=== PATIENT | male | born 1955 | race Caucasian/White ===

== ENCOUNTER 2020-02-16 16:17 | Inpatient (IN) | payer BC, SELFPAY ==
[2020-02-16] VITALS (40 sets, daily range): BP systolic 84–107; BP diastolic 43–65; PULSE 70–97; RESP 13–24; TEMP 36.7–37.1; O2SAT 95–100; BMI 32.1
--- NOTE | 2020-02-16 17:04 | ECG_ITS ---
[facility] Test Date: 2020-02-16 Pat Name: Luis Muñoz Department: Room: Gender: Male Respiratory Care Practitioner: : 1955 Requested By: Raghavendra Nesbitt Order Number: [id number] Jae MD: Stephanie Abel M.D. Measurements Intervals [place] Rate: 85 P: 18 MO: 147 QRS: 43 QRSD: 87 T: 64 QT: 355 QTc: 424 Interpretive Statements SINUS RHYTHM Compared to ECG 10/30/2014 22:41:36 No significant changes Electronically Signed On 02-16-2020 21:43:44 CDT by Stephanie Abel M.D. [email or web address] [id number] f
--- NOTE | 2020-02-16 17:30 | W.ED.GIBLEED ---
Documented by User: Raghavendra Chanel DO 02/19/20 18:01 HPI - GI Bleed General: Chief complaint: GI Bleed Stated complaint: DIZZY Time Seen by Provider: 02/16/20 17:03 History of Present Illness: HPI Narrative: 85-year-old male presents emergency room with rectal bleeding has had for the last 1 to 2 weeks has had black stools he does take iron regularly a week ago was is hemoglobin was 10 7 had been monitoring as an outpatient he has had this for some time he had positive Hemoccult in April of last year he had a colonoscopy and EGD it showed stomach as a source of blood loss was significant ulcers. He reports having very loose stools that are melanic in color. He has had several near syncopal episodes home as well which is what eventually precipitated his primary care doctor to refer him to the emergency room. He is still taking a PPI and they recently doubled up on it because of his symptoms. complaint: melena Onset (ago): week(s) (2) Pain Consistency: intermittent Severity: moderate Relieving factors: none Exacerbating factors: none Context: history of GI bleed Associated symptoms: Reports malaise, nausea and syncope; Denies abdominal pain, easy bruising, fever(s), headache(s), other bleeding, poor appetite, rash or vomiting Treatments Prior to Arrival: none Review of Systems Const: Reports: malaise; Denies: fever(s) ENMT: Denies: throat pain, ear or mastoid pain, nasal discharge or nasal congestion Card: Reports: syncope Resp: Denies: dyspnea, productive cough or non-productive cough GI: Reports: nausea; Denies: abdominal pain or vomiting : Denies: flank pain, dysuria, urinary frequency or urinary urgency Skin/Breast: Denies: rash or pruritus Neuro: Denies: headache(s) Ravi/Lymph: Denies: easy bruising PFS ED PFSH: Medical History (Updated 02/17/20 @ 08:28 by Fatuma Forrest MD) CKD (chronic kidney disease) stage 2, GFR 60-89 ml/min GERD (gastroesophageal reflux disease) History of cirrhosis of liver History of diabetes mellitus Hypertension Hypothyroidism Obstructive sleep apnea Surgical History (Updated 02/16/20 @ 23:09 by Riley Recio MD) History of appendectomy History of arthroscopic knee surgery History of surgery on upper extremity History of vasectomy Family History (Updated 02/16/20 @ 23:09 by Riley Recio MD) Other Diabetes Social History (Updated 02/16/20 @ 23:10 by Riley Reico MD) Smoking and tobacco status: former smoker Quit status (tobacco): has quit using tobacco Alcohol intake: former Substance/Drug Use: never Course Vital Signs: Vital signs: Vital Signs Temperature 98.2 F 02/19/20 16:00 Pulse Rate 96 02/19/20 16:00 Respiratory Rate 18 02/19/20 16:00 Blood Pressure 97/58 02/19/20 16:00 Pulse Oximetry 95 02/19/20 16:00 MDM - GI Bleed MDM Narrative: Medical decision making narrative: Care turned over to Dr. Funes at change of shift see his notes for final diagnosis and disposition Lab Data: Labs: Lab Results 02/16/20 02/16/20 02/16/20 Range/Units 17:23 17:23 17:23 WBC 6.2 (4.0-10.0) 10^3/ uL RBC 2.98 L (4.1-5.3) 10^6/u L Hgb 8.9 L (11.7-16.6) g/dL Hct 27.4 L (42.0-52.0) % MCV 91.9 (80-94) fL MCH 29.9 (28.0-34.0) pg MCHC 32.5 (30.0-36.0) g/dL RDW 14.6 (12.1-15.1) % Plt Count 184 (130-400) 10^3/c mm MPV 9.5 (7.4-10.4) fL Neut % (Auto) 56.9 % Lymph % (Auto) 22.1 % [place] % (Auto) 16.3 % Eos % (Auto) 3.4 % Baso % (Auto) 1.1 % Neut # (Auto) 3.54 (1.8-7.7) 10^3/u L Lymph # (Auto) 1.4 (0.8-4.8) 10^3/u L [place] # (Auto) 1.0 H (0.2-0.9) 10^3/u L Eos # (Auto) 0.2 (0.0-0.8) 10^3/u L Baso # (Auto) 0.1 (0.0-0.1) 10^3/u L Nucleated RBC % (a uto) 0 % Nucleated RBCs # 0.0 /100WBC PT 15.30 H (12.1-14.9) SECO NDS INR 1.17 (0.8-1.2) APTT 30.5 (23.9-36.7) SECO NDS Sodium 119 L* (136-145) mmol/L Potassium 5.6 H (3.5-5.1) mmol/L Chloride 93 L (98-107) mmol/L Carbon Dioxide 16 L (22-29) mmol/L Anion Gap 15.6 (5-19) BUN 22 (8-23) mg/dL Creatinine 0.9 (0.7-1.2) mg/dL GFR Calculation 85.0 L (90-130) mL/min Glucose 110 (65-115) mg/dL Calculated Osmolal ity 245 L (285-295) mOsm/k g Calcium 8.9 (8.5-10.5) mg/dL Total Bilirubin 1.0 (0.15-1.2) mg/dL AST 32 (0-40) U/L ALT 36 (0-41) U/L Alkaline Phosphata se 67 (40-130) IU/L Ammonia (16-60) umol/L Troponin T Baselin e (0-15) ng/L Troponin T [address] [place] (0-15) ng/L Delta Troponin T (0-10) ABS# Total Protein 6.9 (6.6-8.7) g/dL Albumin 3.7 (3.5-5.2) g/dL Globulin 3.2 (1.3-4.6) g/dL Urine Color (Yellow) Urine Appearance (CLEAR) Urine pH (5-7) Ur Specific Gravit y (1.005-1.030) Urine Protein (Negative) Urine Glucose (UA) (Normal) Urine Ketones (Negative) Urine Blood (Negative) Urine Nitrate (Negative) Urine Bilirubin (NEGATIVE) Urine Urobilinogen (Negative) mg/dL Ur Leukocyte Denia ase (Negative) Urine RBC (0-2) /hpf Urine WBC (0-5) /hpf Ur Squamous Epith Cells (0-5) Ur Transition Epit h Cell /hpf Ur Renal Epithelia l Cell /hpf Amorphous Sediment Urine Bacteria (NONE) Blood Type Rho(D) Type Antibody Screen Crossmatch 02/16/20 02/16/20 02/16/20 Range/Units 17:23 17:23 18:40 WBC (4.0-10.0) 10^3/ uL RBC (4.1-5.3) 10^6/u L Hgb (11.7-16.6) g/dL Hct (42.0-52.0) % MCV (80-94) fL MCH (28.0-34.0) pg MCHC (30.0-36.0) g/dL RDW (12.1-15.1) % Plt Count (130-400) 10^3/c mm MPV (7.4-10.4) fL Neut % (Auto) % Lymph % (Auto) % [place] % (Auto) % Eos % (Auto) % Baso % (Auto) % Neut # (Auto) (1.8-7.7) 10^3/u L Lymph # (Auto) (0.8-4.8) 10^3/u L [place] # (Auto) (0.2-0.9) 10^3/u L Eos # (Auto) (0.0-0.8) 10^3/u L Baso # (Auto) (0.0-0.1) 10^3/u L Nucleated RBC % (a uto) % Nucleated RBCs # /100WBC PT (12.1-14.9) SECO NDS INR (0.8-1.2) APTT (23.9-36.7) SECO NDS Sodium (136-145) mmol/L Potassium (3.5-5.1) mmol/L Chloride (98-107) mmol/L Carbon Dioxide (22-29) mmol/L Anion Gap (5-19) BUN (8-23) mg/dL Creatinine (0.7-1.2) mg/dL GFR Calculation (90-130) mL/min Glucose (65-115) mg/dL Calculated Osmolal ity (285-295) mOsm/k g Calcium (8.5-10.5) mg/dL Total Bilirubin (0.15-1.2) mg/dL AST (0-40) U/L ALT (0-41) U/L Alkaline Phosphata se (40-130) IU/L Ammonia 70 H (16-60) umol/L Troponin T Baselin e 15 (0-15) ng/L Troponin T [address] [place] (0-15) ng/L Delta Troponin T (0-10) ABS# Total Protein (6.6-8.7) g/dL Albumin (3.5-5.2) g/dL Globulin (1.3-4.6) g/dL Urine Color (Yellow) Urine Appearance (CLEAR) Urine pH (5-7) Ur Specific Gravit y (1.005-1.030) Urine Protein (Negative) Urine Glucose (UA) (Normal) Urine Ketones (Negative) Urine Blood (Negative) Urine Nitrate (Negative) Urine Bilirubin (NEGATIVE) Urine Urobilinogen (Negative) mg/dL Ur Leukocyte Denia ase (Negative) Urine RBC (0-2) /hpf Urine WBC (0-5) /hpf Ur Squamous Epith Cells (0-5) Ur Transition Epit h Cell /hpf Ur Renal Epithelia l Cell /hpf Amorphous Sediment Urine Bacteria (NONE) Blood Type A Positive Rho(D) Type Positive Antibody Screen Negative Crossmatch See Detail 02/16/20 02/16/20 Range/Units 19:21 19:32 WBC (4.0-10.0) 10^3/ uL RBC (4.1-5.3) 10^6/u L Hgb (11.7-16.6) g/dL Hct (42.0-52.0) % MCV (80-94) fL MCH (28.0-34.0) pg MCHC (30.0-36.0) g/dL RDW (12.1-15.1) % Plt Count (130-400) 10^3/c mm MPV (7.4-10.4) fL Neut % (Auto) % Lymph % (Auto) % [place] % (Auto) % Eos % (Auto) % Baso % (Auto) % Neut # (Auto) (1.8-7.7) 10^3/u L Lymph # (Auto) (0.8-4.8) 10^3/u L [place] # (Auto) (0.2-0.9) 10^3/u L Eos # (Auto) (0.0-0.8) 10^3/u L Baso # (Auto) (0.0-0.1) 10^3/u L Nucleated RBC % (a uto) % Nucleated RBCs # /100WBC PT (12.1-14.9) SECO NDS INR (0.8-1.2) APTT (23.9-36.7) SECO NDS Sodium (136-145) mmol/L Potassium (3.5-5.1) mmol/L Chloride (98-107) mmol/L Carbon Dioxide (22-29) mmol/L Anion Gap (5-19) BUN (8-23) mg/dL Creatinine (0.7-1.2) mg/dL GFR Calculation (90-130) mL/min Glucose (65-115) mg/dL Calculated Osmolal ity (285-295) mOsm/k g Calcium (8.5-10.5) mg/dL Total Bilirubin (0.15-1.2) mg/dL AST (0-40) U/L ALT (0-41) U/L Alkaline Phosphata se (40-130) IU/L Ammonia (16-60) umol/L Troponin T Baselin e (0-15) ng/L Troponin T [address] [place] 14.61 (0-15) ng/L Delta Troponin T -0.39 L (0-10) ABS# Total Protein (6.6-8.7) g/dL Albumin (3.5-5.2) g/dL Globulin (1.3-4.6) g/dL Urine Color Yellow (Yellow) Urine Appearance Clear (CLEAR) Urine pH 5 (5-7) Ur Specific Gravit y 1.015 (1.005-1.030) Urine Protein Neg (Negative) Urine Glucose (UA) 4+ H (Normal) Urine Ketones Negative (Negative) Urine Blood Neg (Negative) Urine Nitrate Negative (Negative) Urine Bilirubin Neg (NEGATIVE) Urine Urobilinogen Norm (Negative) mg/dL Ur Leukocyte Denia ase Negative (Negative) Urine RBC None (0-2) /hpf Urine WBC None (0-5) /hpf Ur Squamous Epith Cells 0-4 H (0-5) Ur Transition Epit h Cell None /hpf Ur Renal Epithelia l Cell None /hpf Amorphous Sediment Not Reportable Urine Bacteria None (NONE) Blood Type Rho(D) Type Antibody Screen Crossmatch Discharge Plan Discharge Patient Disposition: Admitted As Inpatient Admit Provider: Riley Recio Clinical Impression: Acute hyponatremia, Acute GI bleeding Condition: Stable Referrals: Floresita Bustillo DO [Primary Care Provider] - Discharge Date/Time: 02/16/20 19:49 Sign Out Sign Out Data: Patient Sign Out occurred on 02/16/20 at 18:20. Patient's care was discussed, and care was transferred from to Mami Nation. Coding Level of Care Code ED Computed Tomography Technician for Chg Fwd Exam Comprehensive Documented by User: Mami Nation 02/16/20 20:43 HPI - GI Bleed General: Chief complaint: GI Bleed Stated complaint: DIZZY Time Seen by Provider: 02/16/20 17:03 [facility] ED PFSH: Medical History (Updated 02/17/20 @ 08:28 by Fatuma Forrest MD) CKD (chronic kidney disease) stage 2, GFR 60-89 ml/min GERD (gastroesophageal reflux disease) History of cirrhosis of liver History of diabetes mellitus Hypertension Hypothyroidism Obstructive sleep apnea Surgical History (Updated 02/16/20 @ 23:09 by Riley Recio MD) History of appendectomy History of arthroscopic knee surgery History of surgery on upper extremity History of vasectomy Family History (Updated 02/16/20 @ 23:09 by Riley Recio MD) Other Diabetes Social History (Updated 02/16/20 @ 23:10 by Riley Recio MD) Smoking and tobacco status: former smoker Quit status (tobacco): has quit using tobacco Alcohol intake: former Substance/Drug Use: never Physical Exam Const: COMMON NORMALS: no acute distress, patient oriented x3, no limitations, healthy appearing and well nourished GENERAL APPEARANCE: cooperative, well kempt and well developed HENMT: COMMON NORMALS: normocephalic, atraumatic, external ears normal, EAC's normal and Normal external nose present HEAD & SCALP: normal to inspection, normocephalic and atraumatic FACE & SINUS: normal facial exam and face symmetric NOSE: Normal external nose present and Normal nares present EXTERNAL EAR: Yes external ears normal EXTERNAL AUDITORY CANAL: EAC's normal MOUTH: Normal oral and palatal mucosa present, lip normal and tongue normal Eye: COMMON NORMALS: Equal, round and reactive pupils present and conjunctivae normal GENERAL EYE: appearance normal, both eyes and all related structures ALIGNMENT: Yes alignment normal PERIORBITAL: periorbital findings normal EYELID: eyelids normal CONJUNCTIVA: Yes conjunctivae normal SCLERA: sclerae normal PUPIL: Yes Equal, round and reactive pupils present Neck/C-Spine: COMMON NORMALS: full ROM, no lymphadenopathy, supple, no meningeal signs and no JVD GENERAL: Yes normal visual inspection and Yes trachea midline Chest: COMMONS NORMALS: normal inspection of the chest and normal palpation of entire chest wall Resp: COMMON NORMALS: normal respiratory effort, No retractions and No use of accessory muscles EFFORT & INSPECTION: Yes able to speak in complete sentences and Yes symmetric chest movement AUSCULTATION: no crackles, no rales, no rhonchi and no wheezes Cardio: COMMON NORMALS: no JVD, regular rate, regular rhythm, S1 normal heart sound present and S2 normal heart sound present RATE: regular rate RHYTHM: regular rhythm HEART SOUNDS: S1 normal heart sound present, S2 normal heart sound present, no click, no gallops, no murmurs, no rubs and abnormal split S2 GI: COMMON NORMALS: Soft to palpation and No hepatosplenomegaly present PALPATION: Yes Soft to palpation, No Tenderness to palpation present (GI), No Guarding due to palpation present (GI), No Rigid due to palpation, Yes No hepatosplenomegaly present, No Hernia present, No Palpable mass present and No Pulsatile mass present : COMMON NORMALS: Yes no CVA tenderness BLADDER/KIDNEY EXAM: Yes no CVA tenderness Back/Pelvis: COMMON NORMALS: no CVA tenderness, thoracic and lumbar spine normal to inspection, no thoracic nor lumbar tenderness and thoraco-lumbar ROM normal Extremity: COMMON NORMALS: normal to inspection, full ROM, capillary refill normal, no joint enlargement, no clubbing, cyanosis or edema and no calf tenderness Neuro: COMMON NORMALS: patient oriented x3, CN's II-XII intact bilaterally, moves all extremities, no focal motor deficits and no sensory deficits noted MENINGEAL SIGNS: Yes no meningeal signs SPEECH: speech normal Psych: COMMON NORMALS: mental status grossly normal, Normal thought process present, cooperative, normal affect, speech normal and activity/motor behavior normal APPEARANCE: Yes well kempt SPEECH: Yes normal speech THOUGHT PROCESS: Normal thought process present Skin: COMMON NORMALS: no rashes or lesions noted, turgor normal, no jaundice, no petechiae and no mottling GENERAL SKIN EXAM: no rashes or lesions noted and turgor normal Course Vital Signs: Vital signs: Vital Signs Temperature 98.2 F 02/19/20 16:00 Pulse Rate 96 02/19/20 16:00 Respiratory Rate 18 02/19/20 16:00 Blood Pressure 97/58 02/19/20 16:00 Pulse Oximetry 95 02/19/20 16:00 MDM - GI Bleed MDM Narrative: Medical decision making narrative: 1799 -Case turned over to me at change of shift from Dr. Chanel. Please see his note for his history, physical exam and medical decision-making notes. Patient states that he has been fighting black tarry stools intermittently for a year but worse in the past 2 weeks. He had an EGD that showed no varices but a bleeding source from the stomach. He was still anemic after this was treated and was placed on iron but that did not improve so he was worked up and evaluated by Dr. Parham who diagnosed him with cirrhosis. The patient is trying to establish with a GI specialist at [facility] but has been unable to definitively do so or at least follow-up because of the COVID pandemic. Patient has been Hemoccult positive but is not having any belly pain. He passed out once last week and has had several near syncopal episodes. He is denying any chest pain, shortness of breath cough, fever, chills or other complaint. This time he is resting comfortably. 1933 -Case reviewed with both Drs. Recio and Bryon, they agreed to admit and consult respectively. Random serum cortisol was added per Dr. Recio's request. Currently the patient is still normotensive with a good heart rate. He is mentating well shows no sign of hepatic encephalopathy or altered mental status from hyponatremia. We will replace his sodium slow with normal saline at 100 cc/h. Patient has no complaints of pain. Packed red blood cells are on hold if needed. Patient will go to the ICU and further care will be determined by the admitting and consulting team. Lab Data: Attestation: I reviewed the patient's lab results. Labs: Lab Results 02/16/20 02/16/20 02/16/20 Range/Units 17:23 17:23 17:23 WBC 6.2 (4.0-10.0) 10^3/ uL RBC 2.98 L (4.1-5.3) 10^6/u L Hgb 8.9 L (11.7-16.6) g/dL Hct 27.4 L (42.0-52.0) % MCV 91.9 (80-94) fL MCH 29.9 (28.0-34.0) pg MCHC 32.5 (30.0-36.0) g/dL RDW 14.6 (12.1-15.1) % Plt Count 184 (130-400) 10^3/c mm MPV 9.5 (7.4-10.4) fL Neut % (Auto) 56.9 % Lymph % (Auto) 22.1 % [place] % (Auto) 16.3 % Eos % (Auto) 3.4 % Baso % (Auto) 1.1 % Neut # (Auto) 3.54 (1.8-7.7) 10^3/u L Lymph # (Auto) 1.4 (0.8-4.8) 10^3/u L [place] # (Auto) 1.0 H (0.2-0.9) 10^3/u L Eos # (Auto) 0.2 (0.0-0.8) 10^3/u L Baso # (Auto) 0.1 (0.0-0.1) 10^3/u L Nucleated RBC % (a uto) 0 % Nucleated RBCs # 0.0 /100WBC PT 15.30 H (12.1-14.9) SECO NDS INR 1.17 (0.8-1.2) APTT 30.5 (23.9-36.7) SECO NDS Sodium 119 L* (136-145) mmol/L Potassium 5.6 H (3.5-5.1) mmol/L Chloride 93 L (98-107) mmol/L Carbon Dioxide 16 L (22-29) mmol/L Anion Gap 15.6 (5-19) BUN 22 (8-23) mg/dL Creatinine 0.9 (0.7-1.2) mg/dL GFR Calculation 85.0 L (90-130) mL/min Glucose 110 (65-115) mg/dL Calculated Osmolal ity 245 L (285-295) mOsm/k g Calcium 8.9 (8.5-10.5) mg/dL Total Bilirubin 1.0 (0.15-1.2) mg/dL AST 32 (0-40) U/L ALT 36 (0-41) U/L Alkaline Phosphata se 67 (40-130) IU/L Ammonia (16-60) umol/L Troponin T Baselin e (0-15) ng/L Troponin T [address] [place] (0-15) ng/L Delta Troponin T (0-10) ABS# Total Protein 6.9 (6.6-8.7) g/dL Albumin 3.7 (3.5-5.2) g/dL Globulin 3.2 (1.3-4.6) g/dL Urine Color (Yellow) Urine Appearance (CLEAR) Urine pH (5-7) Ur Specific Gravit y (1.005-1.030) Urine Protein (Negative) Urine Glucose (UA) (Normal) Urine Ketones (Negative) Urine Blood (Negative) Urine Nitrate (Negative) Urine Bilirubin (NEGATIVE) Urine Urobilinogen (Negative) mg/dL Ur Leukocyte Denia ase (Negative) Urine RBC (0-2) /hpf Urine WBC (0-5) /hpf Ur Squamous Epith Cells (0-5) Ur Transition Epit h Cell /hpf Ur Renal Epithelia l Cell /hpf Amorphous Sediment Urine Bacteria (NONE) Blood Type Rho(D) Type Antibody Screen Crossmatch 02/16/20 02/16/20 02/16/20 Range/Units 17:23 17:23 18:40 WBC (4.0-10.0) 10^3/ uL RBC (4.1-5.3) 10^6/u L Hgb (11.7-16.6) g/dL Hct (42.0-52.0) % MCV (80-94) fL MCH (28.0-34.0) pg MCHC (30.0-36.0) g/dL RDW (12.1-15.1) % Plt Count (130-400) 10^3/c mm MPV (7.4-10.4) fL Neut % (Auto) % Lymph % (Auto) % [place] % (Auto) % Eos % (Auto) % Baso % (Auto) % Neut # (Auto) (1.8-7.7) 10^3/u L Lymph # (Auto) (0.8-4.8) 10^3/u L [place] # (Auto) (0.2-0.9) 10^3/u L Eos # (Auto) (0.0-0.8) 10^3/u L Baso # (Auto) (0.0-0.1) 10^3/u L Nucleated RBC % (a uto) % Nucleated RBCs # /100WBC PT (12.1-14.9) SECO NDS INR (0.8-1.2) APTT (23.9-36.7) SECO NDS Sodium (136-145) mmol/L Potassium (3.5-5.1) mmol/L Chloride (98-107) mmol/L Carbon Dioxide (22-29) mmol/L Anion Gap (5-19) BUN (8-23) mg/dL Creatinine (0.7-1.2) mg/dL GFR Calculation (90-130) mL/min Glucose (65-115) mg/dL Calculated Osmolal ity (285-295) mOsm/k g Calcium (8.5-10.5) mg/dL Total Bilirubin (0.15-1.2) mg/dL AST (0-40) U/L ALT (0-41) U/L Alkaline Phosphata se (40-130) IU/L Ammonia 70 H (16-60) umol/L Troponin T Baselin e 15 (0-15) ng/L Troponin T [address] [place] (0-15) ng/L Delta Troponin T (0-10) ABS# Total Protein (6.6-8.7) g/dL Albumin (3.5-5.2) g/dL Globulin (1.3-4.6) g/dL Urine Color (Yellow) Urine Appearance (CLEAR) Urine pH (5-7) Ur Specific Gravit y (1.005-1.030) Urine Protein (Negative) Urine Glucose (UA) (Normal) Urine Ketones (Negative) Urine Blood (Negative) Urine Nitrate (Negative) Urine Bilirubin (NEGATIVE) Urine Urobilinogen (Negative) mg/dL Ur Leukocyte Denia ase (Negative) Urine RBC (0-2) /hpf Urine WBC (0-5) /hpf Ur Squamous Epith Cells (0-5) Ur Transition Epit h Cell /hpf Ur Renal Epithelia l Cell /hpf Amorphous Sediment Urine Bacteria (NONE) Blood Type A Positive Rho(D) Type Positive Antibody Screen Negative Crossmatch See Detail 02/16/20 02/16/20 Range/Units 19:21 19:32 WBC (4.0-10.0) 10^3/ uL RBC (4.1-5.3) 10^6/u L Hgb (11.7-16.6) g/dL Hct (42.0-52.0) % MCV (80-94) fL MCH (28.0-34.0) pg MCHC (30.0-36.0) g/dL RDW (12.1-15.1) % Plt Count (130-400) 10^3/c mm MPV (7.4-10.4) fL Neut % (Auto) % Lymph % (Auto) % [place] % (Auto) % Eos % (Auto) % Baso % (Auto) % Neut # (Auto) (1.8-7.7) 10^3/u L Lymph # (Auto) (0.8-4.8) 10^3/u L [place] # (Auto) (0.2-0.9) 10^3/u L Eos # (Auto) (0.0-0.8) 10^3/u L Baso # (Auto) (0.0-0.1) 10^3/u L Nucleated RBC % (a uto) % Nucleated RBCs # /100WBC PT (12.1-14.9) SECO NDS INR (0.8-1.2) APTT (23.9-36.7) SECO NDS Sodium (136-145) mmol/L Potassium (3.5-5.1) mmol/L Chloride (98-107) mmol/L Carbon Dioxide (22-29) mmol/L Anion Gap (5-19) BUN (8-23) mg/dL Creatinine (0.7-1.2) mg/dL GFR Calculation (90-130) mL/min Glucose (65-115) mg/dL Calculated Osmolal ity (285-295) mOsm/k g Calcium (8.5-10.5) mg/dL Total Bilirubin (0.15-1.2) mg/dL AST (0-40) U/L ALT (0-41) U/L Alkaline Phosphata se (40-130) IU/L Ammonia (16-60) umol/L Troponin T Baselin e (0-15) ng/L Troponin T [address] [place] 14.61 (0-15) ng/L Delta Troponin T -0.39 L (0-10) ABS# Total Protein (6.6-8.7) g/dL Albumin (3.5-5.2) g/dL Globulin (1.3-4.6) g/dL Urine Color Yellow (Yellow) Urine Appearance Clear (CLEAR) Urine pH 5 (5-7) Ur Specific Gravit y 1.015 (1.005-1.030) Urine Protein Neg (Negative) Urine Glucose (UA) 4+ H (Normal) Urine Ketones Negative (Negative) Urine Blood Neg (Negative) Urine Nitrate Negative (Negative) Urine Bilirubin Neg (NEGATIVE) Urine Urobilinogen Norm (Negative) mg/dL Ur Leukocyte Denia ase Negative (Negative) Urine RBC None (0-2) /hpf Urine WBC None (0-5) /hpf Ur Squamous Epith Cells 0-4 H (0-5) Ur Transition Epit h Cell None /hpf Ur Renal Epithelia l Cell None /hpf Amorphous Sediment Not Reportable Urine Bacteria None (NONE) Blood Type Rho(D) Type Antibody Screen Crossmatch EKG Data^: EKG 1: Attestation: I personally reviewed and interpreted this EKG as follows: EKG interpretation date: 02/16/20 EKG interpretation time: 17:22 Interpretation: Normal sinus rhythm 85 beats a minute, normal axis, no blocks, normal intervals. No acute findings. Discharge Plan Discharge Patient Disposition: Admitted As Inpatient Admit Provider: Riley Recio Clinical Impression: Acute hyponatremia, Acute GI bleeding Condition: Stable Referrals: Floresita Bustillo DO [Primary Care Provider] - Discharge Date/Time: 02/16/20 19:49 Sign Out Sign Out Data: Patient Sign Out occurred on 02/16/20 at 18:20. Patient's care was discussed, and care was transferred from to Mami Baldwin [facility]. Coding Level of Care Code ED Computed Tomography Technician for Chg Fwd Exam Comprehensive
[2020-02-16 17:31] LABS: Basophils # 0.1 10^3/uL (0.0-0.1); Basophils % 1.1 %; Eosinophils # 0.2 10^3/uL (0.0-0.8); Eosinophils % 3.4 %; Hematocrit 27.4 % (42.0-52.0); Hemoglobin 8.9 g/dL (11.7-16.6); Lymphocytes # 1.4 10^3/uL (0.8-4.8); Lymphocytes % 22.1 %; Mean Corpuscular HGB Conc 32.5 g/dL (30.0-36.0); Mean Corpuscular Hemoglobin 29.9 pg (28.0-34.0); Mean Corpuscular Volume 91.9 fL (80-94); Mean Platelet Volume 9.5 fL (7.4-10.4); Monocytes % 16.3 %; Neutrophils # 3.54 10^3/uL (1.8-7.7); Neutrophils % 56.9 %; Nucleated Red Blood Cells % 0 %; Platelet Count 184 10^3/cmm (130-400); Red Blood Count 2.98 10^6/uL (4.1-5.3); Red Cell Distribution Width 14.6 % (12.1-15.1); White Blood Count 6.2 10^3/uL (4.0-10.0)
[2020-02-16 17:49] LABS: Alanine Aminotransferase 36 U/L (0-41); Albumin Level 3.7 g/dL (3.5-5.2); Alkaline Phosphatase 67 IU/L (40-130); Aspartate Amino Transferase 32 U/L (0-40); Blood Urea Nitrogen 22 mg/dL (8-23); Calcium 8.9 mg/dL (8.5-10.5); Carbon Dioxide 16 mmol/L (22-29); Chloride 93 mmol/L (98-107); Globulin 3.2 g/dL (1.3-4.6); Glucose 110 mg/dL (65-115); Osmolality Calculated 245 mOsm/kg (285-295); Total Protein 6.9 g/dL (6.6-8.7)
[2020-02-16 17:56] LABS: Anion Gap 15.6 (5-19); Potassium 5.6 mmol/L (3.5-5.1)
[2020-02-16 17:57] LABS: Sodium 119 mmol/L (136-145)
[2020-02-16 18:03] LABS: INR 1.17 (0.8-1.2); Partial Thromboplastin Time 30.5 SECONDS (23.9-36.7)
[2020-02-16] MEDS: sodium chloride 0.9% 1,000 ML 100 ML IV (18:22)
[2020-02-16] MEDS: pantoprazole 40 mg SDV 80 MG IVP (18:44)
[2020-02-16] MEDS: pantoprazole 40 MG in sodium chloride 0.9% (plus) 100 ML 20 MG IV (18:47)
[2020-02-16 19:14] LABS: Ammonia 70 umol/L (16-60)
[2020-02-16 19:16] LABS: Troponin(5th) Baseline 15 ng/L (0-15)
[2020-02-16 19:41] LABS: Specific Gravity, Urine 1.015 (1.005-1.030); Urine Appearance Clear (CLEAR); Urine Color Yellow (Yellow); pH Urine 5 (5-7)
[2020-02-16 19:42] LABS: Bilirubin Urine Neg (NEGATIVE); Blood Urine Neg (Negative); Glucose Urine UA 4+ (Normal); Ketones Urine Negative (Negative); Leukocyte Esterase Urine Negative (Negative); Nitrate Urine Negative (Negative); Protein Urine Neg (Negative); Urobilinogen Urine Norm (Negative)
[2020-02-16 19:45] LABS: Add Urine Culture? No; Squamous Epithelial Cell Urine 0-4 (0-5)
[2020-02-16] MEDS: cefTRIAXone 1,000 MG in sodium chloride 0.9% (plus) 50 ML 100 MG IV (19:47)
[2020-02-16 20:02] LABS: Troponin 5 2HR 14.61 ng/L (0-15); Troponin 5 2HR Delta -0.39 ABS# (0-10)
[2020-02-16] MEDS: sodium chloride 0.9% 1,000 ML 50 ML IV (20:54)
[2020-02-16 21:20] LABS: Hematocrit 25.9 % (42.0-52.0); Hemoglobin 8.2 g/dL (11.7-16.6)
[2020-02-16 21:31] LABS: Anion Gap 15.2 (5-19); Blood Urea Nitrogen 21 mg/dL (8-23); Calcium 8.3 mg/dL (8.5-10.5); Carbon Dioxide 17 mmol/L (22-29); Chloride 97 mmol/L (98-107); Glomerular Filtration Rate 75.2 mL/min (90-130); Glucose 103 mg/dL (65-115); Osmolality Calculated 255 mOsm/kg (285-295); Potassium 5.2 mmol/L (3.5-5.1); Sodium 124 mmol/L (136-145)
--- NOTE | 2020-02-16 23:04 | PM.HP ---
Providers/Chief Complaint Admitting Physician: Riley Recio MD Primary Care Provider: Floresita Bustillo DO Chief Complaint: DIZZY History of Present Illness Luis Muñoz is a 65 year old male that presents with history of feeling worse in the last 3 weeks with tiredness, up to the point of syncope/near syncope twice in the last several weeks. He has had dark tarry stools off and on for years. He has had decreased appetite and recently in the last 3 months or so weight loss of around 40 pounds. No abdominal pain. He has known cirrhosis, with evaluation in [place] in the past. He denies any vomiting. He reports no bright red blood in his stool. He is usually compliant with his medicine but occasionally skips lactulose secondary to cramping. reports he occasionally gets lower and difficulty remembering words when his ammonia level gets high. Previous endoscopy in July 2018 did not demonstrate esophageal varices. Did demonstrate gastritis. Colonoscopy showed diverticulosis. No history of cough or COVID exposure. Review of Systems General: Denies: 10 or more systems reviewed and unremarkable except in HPI and below Const: Denies: fever(s) or chills Eyes: Denies: change in vision ENMT: Denies: throat pain Card: Denies: chest pain Resp: Denies: dyspnea GI: Reports: melena; Denies: abdominal pain, nausea or vomiting : Denies: flank pain Musc: Denies: neck pain Skin/Breast: Denies: rash Neuro: Denies: headache(s) Psych: Denies: anxiety Endo: Denies: polyuria Ravi/Lymph: Denies: easy bruising All/Imm: Denies: urticaria Medications/Allergies Home Medications Medication Instructions Recorded Confirmed Last Taken Type acetaminophen [Tylenol Extra 1,000 mg PO PRN 02/16/20 02/16/20 02/16/20 13:00 History Strength] 500 MG betamethasone dipropionate 1 applic TOPICAL PRN 02/16/20 02/16/20 Unknown History cyclobenzaprine 10 mg PO TID PRN 02/16/20 02/16/20 Unknown History dapagliflozin-metformin [Xigduo XR] 1 tab PO DAILY 02/16/20 02/16/20 02/16/20 History iron 325 mg PO BID 02/16/20 02/16/20 Unknown History lactulose 30 ml PO BID 02/16/20 02/16/20 02/15/20 History levothyroxine 25 mcg PO DAILY 02/16/20 02/16/20 02/16/20 History multivitamin [Multiple Vitamins] 1 tab PO DAILY 02/16/20 02/16/20 Unknown History omeprazole 20 mg PO BID 02/16/20 02/16/20 Unknown History rifaximin [Xifaxan] 550 mg PO BID 02/16/20 02/16/20 02/16/20 History semaglutide [Ozempic] See Rx Instructions .ROUTE .COMPLEX 02/16/20 02/16/20 02/16/20 History spironolactone 50 mg PO DAILY 02/16/20 02/16/20 02/16/20 History telmisartan 80 mg PO DAILY 02/16/20 02/16/20 02/16/20 History Allergies Allergy/AdvReac Type Severity Reaction Status Date / Time Sulfa (Sulfonamide Allergy ALGY-Rash Verified 02/16/20 17:27 Antibiotics) PFSH Acute PFSH: Medical History (Updated 02/16/20 @ 23:12 by Riley Recio MD) GERD (gastroesophageal reflux disease) History of cirrhosis of liver History of diabetes mellitus Hypertension Hypothyroidism Obstructive sleep apnea Surgical History (Updated 02/16/20 @ 23:09 by Riley Recio MD) History of appendectomy History of arthroscopic knee surgery History of surgery on upper extremity History of vasectomy Family History (Updated 02/16/20 @ 23:09 by Riley Recio MD) Other Diabetes Social History (Updated 02/16/20 @ 23:10 by Riley Recio MD) Smoking and tobacco status: former smoker Quit status (tobacco): has quit using tobacco Alcohol intake: former Substance/Drug Use: never Vitals/I&O/Wt Last Vital Signs Temp 98.8 F 02/16/20 21:01 Pulse 88 02/16/20 22:35 Resp 20 H 02/16/20 22:35 BP 101/59 02/16/20 22:35 Pulse Ox 99 02/16/20 22:35 02/16/20 02/16/20 02/17/20 14:59 22:59 06:59 Output Total 500 / 500 Balance -500 / -500 Weight last 48 hrs Weight 113.398 kg Physical Exam Narrative: EXAM NARRATIVE: General exam is a white male, in no apparent distress HEENT: Pupils equally round. Oropharynx clear. Neck is supple no lymphadenopathy or thyromegaly Cardiovascular regular rate and rhythm without murmur, no S3 or S4 Lungs clear no wheezing or crackles Abdomen is soft with positive bowel sounds. No obvious ascites. No obvious organomegaly was deferred Extremities no cyanosis clubbing or edema, cap refill brisk Skin no rash Neuro no obvious focal deficits Data : 02/16/20 21:00 02/16/20 21:00 A&P Assessment and plan (1) Acute GI bleeding: Protonix drip Serial hemoglobin. Consider transfusion if hemoglobin decreases less than 8 Surgery consultation Consideration of GAVE considering his cirrhosis. Last EGD demonstrated gastritis visually but biopsy was negative for inflammation. Status: Acute (2) Acute hyponatremia: He does not appear fluid overloaded. Slow hydration and reassessment. Secondary to elevated potassium, low sodium check random cortisol, TSH Status: Acute (3) Hepatic encephalopathy: Fluids currently As soon as he is taking p.o. we will initiate lactulose Status: Acute (4) Hyperkalemia: Repeat after hydration Status: Acute Additional A&P Information Type 2 diabetes. Sliding scale insulin, mild Hypothyroidism. Continue home medication History of hypertension. Hold blood pressure medication currently secondary to severe anemia. History of obstructive sleep apnea Full code SCDs for DVT prophylaxis Attestations Medical Necessity Statement*: Will need greater than 2 midnight stay for evaluation of GI bleeding Critical Care Time: 52 minutes spent in critical care time at bedside reviewing patient history, examination of the patient, in this patient with significant anemia, cirrhosis, electrolyte abnormality with high risk of decompensation. Coding Level of Care Code Acute Glaze Sprayer for Jazmineg Fwd Diagnoses Acute GI bleeding K92.2 Acute hyponatremia E87.1 Hepatic encephalopathy K72.90 Hyperkalemia E87.5
[2020-02-17] VITALS (65 sets, daily range): BP systolic 86–124; BP diastolic 44–65; PULSE 72–94; RESP 12–31; TEMP 36.7–36.8; O2SAT 95–100
[2020-02-17 00:49] LABS: Troponin 5 6HR 19.35 ng/L (0-15); Troponin 5 6HR Delta 4.35 ng/L (0-12)
[2020-02-17 01:01] LABS: Cortisol Random 3.24 ug/mL (2.47-19.5)
[2020-02-17 01:59] LABS: Thyroid Stimulating Hormone 2.68 uIU/mL (0.27-4.20)
[2020-02-17 05:01] LABS: Basophils # 0.1 10^3/uL (0.0-0.1); Basophils % 1.4 %; Eosinophils # 0.2 10^3/uL (0.0-0.8); Eosinophils % 4.6 %; Hemoglobin 8.3 g/dL (11.7-16.6); Lymphocytes # 1.2 10^3/uL (0.8-4.8); Lymphocytes % 27.4 %; Mean Corpuscular HGB Conc 30.7 g/dL (30.0-36.0); Mean Corpuscular Volume 97.5 fL (80-94); Mean Platelet Volume 9.8 fL (7.4-10.4); Monocytes # 0.8 10^3/uL (0.2-0.9); Monocytes % 17.6 %; Neutrophils # 2.11 10^3/uL (1.8-7.7); Nucleated Red Blood Cells % 0 %; Platelet Count 140 10^3/cmm (130-400); Red Blood Count 2.77 10^6/uL (4.1-5.3); Red Cell Distribution Width 14.8 % (12.1-15.1); White Blood Count 4.3 10^3/uL (4.0-10.0)
[2020-02-17 05:44] LABS: Alanine Aminotransferase 31 U/L (0-41); Albumin Level 3.3 g/dL (3.5-5.2); Alkaline Phosphatase 63 IU/L (40-130); Anion Gap 13.4 (5-19); Aspartate Amino Transferase 31 U/L (0-40); Blood Urea Nitrogen 19 mg/dL (8-23); Calcium 8.5 mg/dL (8.5-10.5); Carbon Dioxide 15 mmol/L (22-29); Chloride 99 mmol/L (98-107); Globulin 2.7 g/dL (1.3-4.6); Glucose 97 mg/dL (65-115); Osmolality Calculated 250 mOsm/kg (285-295); Potassium 5.4 mmol/L (3.5-5.1); Sodium 122 mmol/L (136-145); Total Bilirubin 1.2 mg/dL (0.15-1.2)
[2020-02-17 07:46] LABS: Glucose Point of Care 109 mg/dL (70-110)
--- NOTE | 2020-02-17 08:07 | P.PN_ITS ---
Subjective Subjective: Interval history: Chart reviewed including old [facility] records, hemoglobin stable at 8.3, remains hyponatremic with sodium of 122, on IV fluid hydration, normalized renal function. Low normal blood pressure, afebrile, on room air, had 1850 mL urine output overnight. Very pleasant, resting quietly in bed, no BMs so far. Repeat Hg in PM stable at 8.6. Medications: Reviewed: Yes Medication Review Details: Active Medications Generic Name Dose Route Start Last Admin Trade Name Freq PRN Reason Stop Dose Admin Dextrose 25 ml 02/16/20 23:15 D50w IVP ONCE PRN hypoglycemia prot ocol Protocol Dextrose 50 ml 02/16/20 23:15 D50w IVP PRN PRN hypoglycemia prot ocol Protocol Glucagon 1 mg 02/16/20 23:15 Glucagen IM ONCE PRN Adult Acute Hypog lycemia Prot. Protocol Sodium Chloride 1,000 mls @ 50 ml s/hr 02/16/20 20:17 02/16/20 20:54 Sodium Chloride 0.9% IV 50 mls/hr .Q20H JEMIMA Administration Dextrose 500 mls @ 100 mls /hr 02/16/20 23:15 D5w IV ONCE PRN Adult Acute Hypog lycemia Prot Protocol Insulin Aspart 0 unit 02/17/20 08:00 Novolog SUBCUT WM&BEDTIME JEMIMA Protocol Levothyroxine Sodi um 25 mcg 02/17/20 09:00 Synthroid PO DAILY JEMIMA Ondansetron HCl 4 mg 02/16/20 20:17 Zofran IVP Q6H PRN NAUSEA AND VOMITI NG Sulfa (Sulfonamide Antibiotics) Allergy (Verified 02/16/20 17:27) ALGY-Rash Vitals/I&O/Wt Last Vital Signs Temp 98.0 F 02/16/20 23:18 Pulse 81 02/17/20 04:30 Resp 27 H 02/17/20 04:30 BP 102/56 02/17/20 03:55 Pulse Ox 97 02/17/20 04:30 02/16/20 02/17/20 02/17/20 22:59 06:59 14:59 Output Total 500 / 500 1350 / 1850 Balance -500 / -500 -1350 / -1850 Weight last 48 hrs Weight 113.398 kg Physical Exam 2 Const: COMMON NORMALS: no acute distress and patient oriented x3 GENERAL APPEARANCE: cooperative and comfortable ORIENTATION/CONSCIOUSNESS: Yes awake OTHER: -very appropriate HENMT: COMMON NORMALS: normocephalic, atraumatic, hearing grossly normal bilaterally and moist oral mucous membranes HEAD & SCALP: normocephalic and atraumatic Eye: COMMON NORMALS: Equal, round and reactive pupils present, EOMs intact bilaterally and conjunctivae normal CONJUNCTIVA: Yes conjunctivae normal PUPIL: Yes Equal, round and reactive pupils present Neck/C-Spine: COMMON NORMALS: full ROM GENERAL: Yes normal visual inspection and Yes trachea midline Resp: COMMON NORMALS: normal respiratory effort, No retractions, No use of accessory muscles and clear to auscultation bilaterally EFFORT & INSPECTION: Yes able to speak in complete sentences, Yes symmetric chest movement and No tachypneic AUSCULTATION: clear to auscultation bilaterally Cardio: COMMON NORMALS: regular rate, regular rhythm, S1 normal heart sound present, S2 normal heart sound present and No murmurs present (Cardio) RATE: regular rate RHYTHM: regular rhythm HEART SOUNDS: S1 normal heart sound present and S2 normal heart sound present GI: COMMON NORMALS: Normal to inspection, nondistended, normoactive bowel sounds present, Soft to palpation and non-tender INSPECTION: Yes central obesity PALPATION: Yes Soft to palpation Extremity: COMMON NORMALS: normal to inspection, full ROM and no clubbing, cyanosis or edema; negative for no pedal edema Neuro: COMMON NORMALS: patient oriented x3, moves all extremities, no focal motor deficits and no sensory deficits noted Psych: COMMON NORMALS: mental status grossly normal, Normal thought process present, cooperative, normal affect and speech normal SPEECH: Yes normal speech THOUGHT PROCESS: Normal thought process present Skin: COMMON NORMALS: no rashes or lesions noted, no jaundice, no petechiae and no mottling GENERAL SKIN EXAM: no rashes or lesions noted Data : 02/17/20 12:21 02/17/20 12:21 A&P Assessment and plan (1) Acute GI bleeding: -Noted to have melanotic stools, with decreased appetite, and syncope/near syncope over the past several weeks -Has underlying history of liver cirrhosis with GI work-up done in July 2018 showing severe diffuse chronic patchy gastritis on endoscopy, with noted contact bleeding requiring injection of epinephrine, pathology showed normal gastric mucosa; colonoscopy done at the same time showed diverticulosis. No reported evidence of varices -Has been on PPI twice daily. Received an 80 mg dose of IV pantoprazole, continue PPI -has been on iron supplementation due to underlying normocytic anemia, baseline Hg is around 12 though minimal labs to reference -Surgery consult by Dr. Bryon alexandre; conservative management for now and endoscopic evaluation if trend down in Hg or further bleeding -continue to trend H/H -transfuse if Hg continues to drop (< 8) and/or symptomatic Status: Acute (2) History of cirrhosis of liver: -has been following up at [facility] in [place], less frequently lately due to coronavirus pandemic -normal LFTs Status: Chronic (3) Hyperkalemia: -continue to trend Status: Acute (4) Hepatic encephalopathy: -noted ammonia-70 -on lactulose Status: Acute (5) Acute hyponatremia: -on IVF hydration -close monitoring of Na to avoid overcorrection Status: Acute (6) Hypertension: -low normal BP currently; continue to monitor vital signs -hold oral antihypertensives for now Status: Chronic Qualifiers: Hypertension type: essential hypertension Qualified Code(s): I10 - Essential (primary) hypertension (7) Hypothyroidism: -TSH wnl -continue levothyroxine Status: Chronic Qualifiers: Hypothyroidism type: unspecified Qualified Code(s): E03.9 - Hypothyroidism, unspecified (8) Obstructive sleep apnea: Status: Chronic (9) CKD (chronic kidney disease) stage 2, GFR 60-89 ml/min: -baseline Cr wnl -current renal function at baseline Status: Chronic (10) History of diabetes mellitus: -hold oral meds -ISS, hypoglycemia precautions especially as NPO Status: Chronic Additional A&P Information -currently NPO; start on liquid diet for now -GI ppx with PPI -DVT ppx with SCDs, no AC due to bleeding risk -Dispo: home -Code status: FULL code Attestations Medical Necessity Statement*: Patient requires hospitalization for continued management of melena with underlying liver cirrhosis, hyponatremia, on IVF hydration, needs continued monitoring of hemoglobin. Time Spent in Patient Care: Greater than 35 minutes (>than 50% of time spent in counselling and/or direct pt care on unit) . Coding Level of Care Code Acute Letterpress Printing Machinist for Chg Fwd Exam Comprehensive Diagnoses Acute GI bleeding K92.2 History of cirrhosis of liver Z87.19 Hyperkalemia E87.5 Hepatic encephalopathy K72.90 Acute hyponatremia E87.1 Hypertension I10 Hypertension type: essential hypertension Hypothyroidism E03.9 Hypothyroidism type: unspecified Obstructive sleep apnea G47.33 CKD (chronic kidney disease) stage 2, GFR 60-89 ml/min N18.2 History of diabetes mellitus Z86.39
--- NOTE | 2020-02-17 08:10 | PC.CHAP ---
Pastoral Care Encounter/Spiritual Assessment Type of Contact [] Declined faculty member visit [] Patient/Family/Request visit [] Outpatient visit [] Follow-up visit [] Physician referral [] Code/Alert [x] Routine visit [] Staff referral [] Actively dying [] Patient sleeping [] Family support [] [] Out of room [] Palliative care [] [] Receiving care in room [] Pre-surgical visit [] Trauma [] Long length of stay [] ICU visit [] Other: Relational/Emotional Strength [] Patient feels connected with others/family/visitors/staff [] Distress [] Loneliness/isolation [] Abandonment Spirituality of Patient [] Person of Moni [] Attends Yarsani of their Moni [] Believes in Prayer [] Reads Bible or Worship materials [] There are Spiritual issues to be addressed [employer] Interventions [x] Prayer [x] Active listening [x] Non-anxious presence [x] Spiritual/emotional support [] Crisis/trauma care [] Spiritual counseling [] Bereavement support [] Provided bereavement packet [] Provided Bible/devotional materials [] Provided toy/stuffed animal, coloring book to patient or family member [] Provided Communion [] Anointing/Brooks [] Salvation [x] Completed spiritual assessment [] Other: Impact on Illness or Injury [] Angry [] Fearful [] Anxious [] Often cries [] Exhaustion [] Unable to work [] Unable to attend taoist [] Unable to walk/stand [] Unable to read [] Unable to drive [] Unable to eat/drink [] Unable to sleep [] Unable to be with family [] Patient intubated [] Other: Summary patient feeling stronger.. dizziness better Time spent with patient 10 min
[2020-02-17] MEDS: pantoprazole 40 mg SDV IVP ×2 (10:09→20:34)
[2020-02-17] MEDS: levothyroxine 25 mcg Tablet PO (10:09)
[2020-02-17 11:37] LABS: Glucose Point of Care 123 mg/dL (70-110)
[2020-02-17 12:32] LABS: Hematocrit 27.6 % (42.0-52.0); Hemoglobin 8.6 g/dL (11.7-16.6)
[2020-02-17 12:55] LABS: Sodium 126 mmol/L (136-145)
[2020-02-17] MEDS: lanolin oint 7 gm 1 APPLIC TOPICAL (15:00)
[2020-02-17] MEDS: sucralfate 1 gm/10 mL Oral Liq UDC PO ×2 (16:32→20:34)
[2020-02-17] MEDS: sodium chloride 0.9% 1,000 ML 50 ML IV (16:33)
[2020-02-17 16:38] LABS: Glucose Point of Care 102 mg/dL (70-110)
--- NOTE | 2020-02-17 16:40 | P.CONIM_ITS ---
Providers/Reason For Consult Consulting Physican/Specialty*: Dr. Forrest Reason for Consult*: GI bleed Attending Physician: Fatuma Forrest MD Primary Care Provider: Floresita Bustillo DO History of Present Illness History of Present Illness Luis Muñoz is a 65 year old male who presented to the ER yesterday with complaints of feeling weak and passing out over the last 3 weeks. She has had black stools for the last week or so. Patient was diagnosed with cirrhosis of his liver last year. He had EGD and colonoscopy last year which showed gastritis with bleeding requiring epinephrine injections and diverticulosis. Since admission is not had any further bleeding or hematemesis. Denies any nausea or vomiting. No fevers or chills. He gets occasional cramping in the right upper quadrant when he uses lactulose. Review of Systems General: Reports: 10 or more systems reviewed and unremarkable except in HPI and below Meds/Allergies Home Medications and Allergies Home Medications Medication Instructions Recorded Confirmed Last Taken Type acetaminophen [Tylenol Extra 1,000 mg PO PRN 02/16/20 02/16/20 02/16/20 13:00 History Strength] 500 MG betamethasone dipropionate 1 applic TOPICAL PRN 02/16/20 02/16/20 Unknown History cyclobenzaprine 10 mg PO TID PRN 02/16/20 02/16/20 Unknown History dapagliflozin-metformin [Xigduo XR] 1 tab PO DAILY 02/16/20 02/16/20 02/16/20 History iron 325 mg PO BID 02/16/20 02/16/20 Unknown History lactulose 30 ml PO BID 02/16/20 02/16/20 02/15/20 History levothyroxine 25 mcg PO DAILY 02/16/20 02/16/20 02/16/20 History multivitamin [Multiple Vitamins] 1 tab PO DAILY 02/16/20 02/16/20 Unknown History omeprazole 20 mg PO BID 02/16/20 02/16/20 Unknown History rifaximin [Xifaxan] 550 mg PO BID 02/16/20 02/16/20 02/16/20 History semaglutide [Ozempic] See Rx Instructions .ROUTE .COMPLEX 02/16/20 02/16/20 02/16/20 History spironolactone 50 mg PO DAILY 02/16/20 02/16/20 02/16/20 History telmisartan 80 mg PO DAILY 02/16/20 02/16/20 02/16/20 History Allergies Allergy/AdvReac Type Severity Reaction Status Date / Time Sulfa (Sulfonamide Allergy ALGY-Rash Verified 02/16/20 17:27 Antibiotics) Current Medications Current Medications Generic Name Dose Route Start Last Admin Trade Name Freq PRN Reason Stop Dose Admin Sodium Chloride 1,000 mls @ 50 mls/hr 02/16/20 20:17 02/17/20 16:33 Sodium Chloride 0.9% IV 50 mls/hr .Q20H JEMIMA Administration Insulin Aspart 0 unit 02/17/20 08:00 02/17/20 16:33 Novolog SUBCUT Not Given WM&BEDTIME JEMIMA Protocol Lanolin 1 applic 02/17/20 15:00 02/17/20 15:00 Lanolin Oint TOPICAL 1 tube PRN PRN Administration DRYNESS Levothyroxine Sodium 25 mcg 02/17/20 09:00 02/17/20 10:09 Synthroid PO 25 mcg DAILY JEMIMA Administration Pantoprazole Sodium 40 mg 02/17/20 08:30 02/17/20 10:09 Protonix IVP 40 mg Q12H JEMIMA Administration Sucralfate 1 gm 02/17/20 17:00 02/17/20 16:32 Carafate Oral Liq PO 1 gm AC&BEDTIME JEMIMA Administration PFSH Acute PFSH: Medical History (Updated 02/17/20 @ 08:28 by Fatuma Forrest MD) CKD (chronic kidney disease) stage 2, GFR 60-89 ml/min GERD (gastroesophageal reflux disease) History of cirrhosis of liver History of diabetes mellitus Hypertension Hypothyroidism Obstructive sleep apnea Surgical History (Updated 02/16/20 @ 23:09 by Riley Recio MD) History of appendectomy History of arthroscopic knee surgery History of surgery on upper extremity History of vasectomy Family History (Updated 02/16/20 @ 23:09 by Riley Recio MD) Other Diabetes Social History (Updated 02/16/20 @ 23:10 by Riley Recio MD) Smoking and tobacco status: former smoker Quit status (tobacco): has quit using tobacco Alcohol intake: former Substance/Drug Use: never Vitals/I&O/Wt Last Vital Signs Temp 98.1 F 02/17/20 13:19 Pulse 89 02/17/20 16:15 Resp 16 02/17/20 16:15 BP 97/53 02/17/20 16:15 Pulse Ox 97 02/17/20 16:15 02/17/20 02/17/20 02/17/20 06:59 14:59 22:59 Intake Total 982.5 / 982.5 Output Total 1350 / 1850 2075 / 2075 Balance -1350 / -1850 -2075 / -1092.5 982.5 / -1092.5 Weight last 48 hrs Weight 250 lb Physical Exam Narrative: EXAM NARRATIVE: HEENT: Normocephalic Eye: Sclera /conjunctiva normal Abdomen: Soft to palpation Neurological: Oriented to place person and time Skin: Intact, no lesions appreciated on gross exam A&P Assessment and plan (1) Acute GI bleedin-year-old gentleman with acute blood loss anemia. His repeat hemoglobin is been stable around 8.4. No evidence of active GI bleed and patient is hemodynamically stable. He had a colonoscopy and EGD last year. Discussed options with the patient and Dr. Forrest and at this point will start him on a full liquid diet. If his hemoglobin continues to drop then we will plan for repeat EGD otherwise will hold off on any panendoscopy at this point. Status: Acute Coding Level of Care Code Acute Internal Audit Senior Manager for Yehuda Little Diagnoses Acute GI bleeding K92.2
--- NOTE | 2020-02-17 16:42 | PC.NURSE ---
DR BEEBE HERE TO ROUND W/ PT & . WILL START ON FULL LIQUID DIET.
[2020-02-17 20:44] LABS: Glucose Point of Care 118 mg/dL (70-110)
--- NOTE | 2020-02-17 23:00 | PC.NURSE ---
Transferred Report given to TONI Lassiter. Bedside report given to SCOTT De León nurse who is receiving patient. Pt transferred to [facility] room 255-1 by wheelchair. Pt belongings sent with patient, oriented to room and call light system.
[2020-02-18] VITALS (7 sets, daily range): BP systolic 87–100; BP diastolic 49–62; PULSE 78–98; RESP 14–18; TEMP 36.6–37; O2SAT 94–99
[2020-02-18 05:18] LABS: Basophils # 0.1 10^3/uL (0.0-0.1); Basophils % 1.8 %; Eosinophils # 0.2 10^3/uL (0.0-0.8); Eosinophils % 4.4 %; Hematocrit 27.3 % (42.0-52.0); Hemoglobin 8.6 g/dL (11.7-16.6); Lymphocytes # 1.5 10^3/uL (0.8-4.8); Lymphocytes % 29.2 %; Mean Corpuscular HGB Conc 31.5 g/dL (30.0-36.0); Mean Corpuscular Hemoglobin 29.1 pg (28.0-34.0); Mean Corpuscular Volume 92.2 fL (80-94); Mean Platelet Volume 9.8 fL (7.4-10.4); Monocytes # 1.1 10^3/uL (0.2-0.9); Monocytes % 22.4 %; Neutrophils # 2.09 10^3/uL (1.8-7.7); Neutrophils % 41.8 %; Nucleated Red Blood Cells % 0 %; Platelet Count 166 10^3/cmm (130-400); Red Blood Count 2.96 10^6/uL (4.1-5.3); Red Cell Distribution Width 14.6 % (12.1-15.1)
[2020-02-18 05:37] LABS: Estmated Average Glucose 134; Hemoglobin A1C 6.3 % (4.0-6.0)
[2020-02-18 06:07] LABS: Anion Gap 14.2 (5-19); Blood Urea Nitrogen 17 mg/dL (8-23); Calcium 8.8 mg/dL (8.5-10.5); Carbon Dioxide 17 mmol/L (22-29); Chloride 99 mmol/L (98-107); Glomerular Filtration Rate 75.2 mL/min (90-130); Glucose 115 mg/dL (65-115); Osmolality Calculated 257 mOsm/kg (285-295); Potassium 5.2 mmol/L (3.5-5.1); Sodium 125 mmol/L (136-145)
[2020-02-18 06:26] LABS: Glucose Point of Care 118 mg/dL (70-110)
[2020-02-18] MEDS: sucralfate 1 gm/10 mL Oral Liq UDC PO ×4 (06:26→21:27)
[2020-02-18] MEDS: acetaminophen 500 mg Tablet PO (06:26)
[2020-02-18] MEDS: levothyroxine 25 mcg Tablet PO (08:08)
[2020-02-18] MEDS: pantoprazole 40 mg SDV IVP ×2 (09:13→20:04)
[2020-02-18] MEDS: sodium chloride 0.9% 1,000 ML 50 ML IV (09:42)
[2020-02-18 11:16] LABS: Glucose Point of Care 220 mg/dL (70-110)
--- NOTE | 2020-02-18 15:50 | PC.NURSE ---
reported the low bp to the nurse 87/49
--- NOTE | 2020-02-18 15:57 | PM.PN ---
Subjective Subjective: Interval history: Had to 1075 mL urine output overnight, no bowel movements yet, sodium up to 125, stable renal function, stable hemoglobin at 8.6, noted slight hypotension this afternoon so we will slightly increase IV fluid hydration rate. Noted hyperkalemia with potassium of 5.2, will give Kayexalate and calcium gluconate. Has been tolerating full liquid diet without difficulty, will advance to GI soft. Seen while was visiting at bedside, updated her on patient's progress. Patient reports feeling better today, so far has been tolerating liquid diet, with stability in hemoglobin will advance to GI soft diet. Medications: Reviewed: Yes Medication Review Details: Active Medications Generic Name Dose Route Start Last Admin Trade Name Freq PRN Reason Stop Dose Admin Calcium Gluconate 1 gm 02/18/20 15:56 Calcium Gluconat e IVP 02/18/20 15:57 ONCE ONE Dextrose 25 ml 02/16/20 23:15 D50w IVP ONCE PRN hypoglycemia prot ocol Protocol Dextrose 50 ml 02/16/20 23:15 D50w IVP PRN PRN hypoglycemia prot ocol Protocol Glucagon 1 mg 02/16/20 23:15 Glucagen IM ONCE PRN Adult Acute Hypog lycemia Prot. Protocol Sodium Chloride 1,000 mls @ 75 ml s/hr 02/16/20 20:17 02/18/20 09:42 Sodium Chloride 0.9% IV 50 mls/hr .[id number] JEMIMA Administration Dextrose 500 mls @ 100 mls /hr 02/16/20 23:15 D5w IV ONCE PRN Adult Acute Hypog lycemia Prot Protocol Insulin Aspart 0 unit 02/17/20 08:00 02/18/20 11:42 Novolog SUBCUT 4 unit WM&BEDTIME JEMIMA Administration Protocol Lanolin 1 applic 02/17/20 15:00 02/17/20 15:00 Lanolin Oint TOPICAL 1 tube PRN PRN Administration DRYNESS Levothyroxine Sodi um 25 mcg 02/17/20 09:00 02/18/20 08:08 Synthroid PO 25 mcg DAILY JEMIMA Administration Ondansetron HCl 4 mg 02/16/20 20:17 Zofran IVP Q6H PRN NAUSEA AND VOMITI NG Pantoprazole Sodiu m 40 mg 02/17/20 08:30 02/18/20 09:13 Protonix IVP 40 mg Q12H JEMIMA Administration Sodium Polystyrene Sulfonate 15 gm 02/18/20 15:55 Kayexalate PO 02/18/20 15:56 ONCE ONE Sucralfate 1 gm 02/17/20 17:00 02/18/20 09:42 Carafate Oral Li q PO 1 gm AC&BEDTIME JEMIMA Administration Sulfa (Sulfonamide Antibiotics) Allergy (Verified 02/16/20 17:27) ALGY-Rash Vitals/I&O/Wt Last Vital Signs Temp 98.5 F 02/18/20 15:50 Pulse 82 02/18/20 15:50 Resp 14 02/18/20 15:50 BP 87/49 02/18/20 15:50 Pulse Ox 94 02/18/20 15:50 02/18/20 02/18/20 02/18/20 06:59 14:59 22:59 Intake Total 240 / 2122.5 2096.5 / 2096.5 Output Total 700 / 4150 Balance -460 / -2026.5 2096. / 2096. Weight last 48 hrs Weight 113.398 kg Physical Exam Const: COMMON NORMALS: no acute distress and patient oriented x3 GENERAL APPEARANCE: cooperative and comfortable ORIENTATION/CONSCIOUSNESS: Yes awake OTHER: -very pleasant HENMT: COMMON NORMALS: normocephalic, atraumatic, hearing grossly normal bilaterally and moist oral mucous membranes HEAD & SCALP: normocephalic and atraumatic Eye: COMMON NORMALS: Equal, round and reactive pupils present, EOMs intact bilaterally and conjunctivae normal CONJUNCTIVA: Yes conjunctivae normal PUPIL: Yes Equal, round and reactive pupils present Neck/C-Spine: COMMON NORMALS: full ROM GENERAL: Yes normal visual inspection and Yes trachea midline Resp: COMMON NORMALS: normal respiratory effort, No retractions, No use of accessory muscles and clear to auscultation bilaterally EFFORT & INSPECTION: Yes able to speak in complete sentences, Yes symmetric chest movement and No tachypneic AUSCULTATION: clear to auscultation bilaterally Cardio: COMMON NORMALS: regular rate, regular rhythm, S1 normal heart sound present, S2 normal heart sound present and No murmurs present (Cardio) RATE: regular rate RHYTHM: regular rhythm HEART SOUNDS: S1 normal heart sound present and S2 normal heart sound present GI: COMMON NORMALS: Normal to inspection, nondistended, normoactive bowel sounds present, Soft to palpation and non-tender INSPECTION: Yes central obesity PALPATION: Yes Soft to palpation Extremity: COMMON NORMALS: normal to inspection, full ROM and no clubbing, cyanosis or edema; negative for no pedal edema Neuro: COMMON NORMALS: patient oriented x3, moves all extremities, no focal motor deficits and no sensory deficits noted Psych: COMMON NORMALS: mental status grossly normal, Normal thought process present, cooperative, normal affect and speech normal SPEECH: Yes normal speech THOUGHT PROCESS: Normal thought process present Skin: COMMON NORMALS: no rashes or lesions noted, no jaundice, no petechiae and no mottling GENERAL SKIN EXAM: no rashes or lesions noted Data : 02/18/20 04:21 02/18/20 04:21 A&P Assessment and plan (1) Acute GI bleeding: -Noted to have melanotic stools, with decreased appetite, and syncope/near syncope over the past several weeks -Has underlying history of liver cirrhosis with GI work-up done in July 2018 showing severe diffuse chronic patchy gastritis on endoscopy, with noted contact bleeding requiring injection of epinephrine, pathology showed normal gastric mucosa; colonoscopy done at the same time showed diverticulosis. No reported evidence of varices -Has been on PPI twice daily. Received an 80 mg dose of IV pantoprazole, continue PPI -has been on iron supplementation due to underlying normocytic anemia, baseline Hg is around 12 though minimal labs to reference -Surgery consult by Dr. Slater appreciated; conservative management for now and endoscopic evaluation if trend down in Hg or further bleeding -continue to trend H/H; stable so far -transfuse if Hg continues to drop (< 8) and/or symptomatic Status: Acute (2) History of cirrhosis of liver: -has been following up at [facility] in [place], less frequently lately due to coronavirus pandemic -normal LFTs Status: Chronic (3) Hyperkalemia: -continue to trend Status: Acute (4) Hepatic encephalopathy: -noted ammonia-70 -on lactulose Status: Acute (5) Acute hyponatremia: -on IVF hydration -close monitoring of Na to avoid overcorrection Status: Acute (6) Hypertension: -low normal BP currently; continue to monitor vital signs -continue to hold oral antihypertensives for now Status: Chronic Qualifiers: Hypertension type: essential hypertension Qualified Code(s): I10 - Essential (primary) hypertension (7) Hypothyroidism: -TSH wnl -continue levothyroxine Status: Chronic Qualifiers: Hypothyroidism type: unspecified Qualified Code(s): E03.9 - Hypothyroidism, unspecified (8) Obstructive sleep apnea: Status: Chronic (9) CKD (chronic kidney disease) stage 2, GFR 60-89 ml/min: -baseline Cr wnl -current renal function at baseline Status: Chronic (10) History of diabetes mellitus: -hold oral meds -ISS, hypoglycemia precautions especially as NPO Status: Chronic Additional A&P Information -ctolerating full liquid diet; advance to GI soft diet -Hyperkalemia; give dose of kayexelate and calcium gluconate; repeat in AM -GI ppx with PPI -DVT ppx with SCDs, no AC due to bleeding risk -Dispo: home -Code status: FULL code Attestations Medical Necessity Statement*: Patient requires hospitalization for continued management of hyponatremia, hyperkalemia, anemia. Time Spent in Patient Care: 16 - 35 minutes (>than 50% of time spent in counselling and/or direct pt care on unit). Coding Level of Care Code Acute Supervisor Smoke Control for Chg Fwd Exam Comprehensive Diagnoses Acute GI bleeding K92.2 History of cirrhosis of liver Z87.19 Hyperkalemia E87.5 Hepatic encephalopathy K72.90 Acute hyponatremia E87.1 Hypertension I10 Hypertension type: essential hypertension Hypothyroidism E03.9 Hypothyroidism type: unspecified Obstructive sleep apnea G47.33 CKD (chronic kidney disease) stage 2, GFR 60-89 ml/min N18.2 History of diabetes mellitus Z86.39
[2020-02-18] MEDS: sodium polystyrene sulfonate 15 gm/60 mL Btl PO (16:09)
[2020-02-18] MEDS: calcium gluconate 0.1 gm/mL 10% SDV 10mL 1 GM IVP (16:38)
[2020-02-18 17:16] LABS: Glucose Point of Care 136 mg/dL (70-110)
[2020-02-18 21:15] LABS: Glucose Point of Care 150 mg/dL (70-110)
[2020-02-19] VITALS: BP 91/56; PULSE 94; RESP 20; TEMP 36.7; O2SAT 96
[2020-02-19 04:00] VITALS: BP 95/59; PULSE 82; RESP 20; TEMP 36.6; O2SAT 97
[2020-02-19] MEDS: sodium chloride 0.9% 1,000 ML 50 ML IV (04:09)
[2020-02-19 05:00] LABS: Hematocrit 27.3 % (42.0-52.0)
[2020-02-19 05:29] LABS: Anion Gap 11.7 (5-19); Blood Urea Nitrogen 17 mg/dL (8-23); Calcium 9.4 mg/dL (8.5-10.5); Carbon Dioxide 20 mmol/L (22-29); Chloride 98 mmol/L (98-107); Glomerular Filtration Rate 75.2 mL/min (90-130); Glucose 145 mg/dL (65-115); Osmolality Calculated 259 mOsm/kg (285-295); Potassium 4.7 mmol/L (3.5-5.1); Sodium 125 mmol/L (136-145)
[2020-02-19] MEDS: sucralfate 1 gm/10 mL Oral Liq UDC PO ×4 (06:03→22:23)
[2020-02-19 07:09] LABS: Glucose Point of Care 149 mg/dL (70-110)
[2020-02-19 07:53] VITALS: BP 94/56; PULSE 92; RESP 18; TEMP 36.8; O2SAT 97
[2020-02-19] MEDS: pantoprazole 40 mg SDV IVP ×2 (08:14→20:27)
[2020-02-19] MEDS: levothyroxine 25 mcg Tablet PO (09:11)
[2020-02-19] MEDS: sodium chloride 1 gm Tablet PO ×2 (09:11→17:18)
[2020-02-19 11:54] VITALS: BP 101/53; PULSE 90; RESP 18; TEMP 36.7; O2SAT 97
[2020-02-19 12:11] LABS: Glucose Point of Care 148 mg/dL (70-110)
--- NOTE | 2020-02-19 12:30 | P.PN_ITS ---
Subjective Subjective: Interval history: denies any abdominal pain, hematemesis or melena Vitals/I&O/Wt Last Vital Signs Temp 98.0 F 02/19/20 11:54 Pulse 90 02/19/20 11:54 Resp 18 02/19/20 11:54 BP 101/53 02/19/20 11:54 Pulse Ox 97 02/19/20 11:54 02/18/20 02/19/20 02/19/20 22:59 06:59 14:59 Intake Total 420 / 3680.0 1162.5 / 3680.0 240 / 240 Output Total 1120 / 2260 1140 / 2260 Balance -700 / 1420.0 22.5 / 1420.0 240 / 240 Physical Exam Narrative: EXAM NARRATIVE: Abdomen: Soft Data : 02/20/20 03:30 02/20/20 03:30 A&P Assessment and plan (1) Acute GI bleeding: No evidence of active GI bleed Hemoglobin is stayed stable around 8.5-9 At this point will hold off on an EGD, patient is due to see a napper tender in [place] Status: Acute Attestations Medical Necessity Statement*: GI bleed Coding Level of Care Code Acute Front End Application Developer for [facility] Diagnoses Acute GI bleeding K92.2
--- NOTE | 2020-02-19 14:08 | P.PN_ITS ---
Subjective Subjective: Interval history: Hemodynamically stable, afebrile, on RA, had 1660 mL urine output overnight, no BMs. Sodium is 126. Good appetite and intake, no complaints currently, would like to ambulate more which I encouraged. Medications: Reviewed: Yes Medication Review Details: Active Medications Generic Name Dose Route Start Last Admin Trade Name Freq PRN Reason Stop Dose Admin Dextrose 25 ml 02/16/20 23:15 D50w IVP ONCE PRN hypoglycemia prot ocol Protocol Dextrose 50 ml 02/16/20 23:15 D50w IVP PRN PRN hypoglycemia prot ocol Protocol Glucagon 1 mg 02/16/20 23:15 Glucagen IM ONCE PRN Adult Acute Hypog lycemia Prot. Protocol Sodium Chloride 1,000 mls @ 75 ml s/hr 02/16/20 20:17 02/19/20 04:09 Sodium Chloride 0.9% IV 75 mls/hr .[id number] JEMIMA Infusion Dextrose 500 mls @ 100 mls /hr 02/16/20 23:15 D5w IV ONCE PRN Adult Acute Hypog lycemia Prot Protocol Insulin Aspart 0 unit 02/17/20 08:00 02/19/20 12:33 Novolog SUBCUT 2 unit WM&BEDTIME JEMIMA Administration Protocol Lanolin 1 applic 02/17/20 15:00 02/17/20 15:00 Lanolin Oint TOPICAL 1 tube PRN PRN Administration DRYNESS Levothyroxine Sodi um 25 mcg 02/17/20 09:00 02/19/20 09:11 Synthroid PO 25 mcg DAILY JEMIMA Administration Ondansetron HCl 4 mg 02/16/20 20:17 Zofran IVP Q6H PRN NAUSEA AND VOMITI NG Pantoprazole Sodiu m 40 mg 02/17/20 08:30 02/19/20 08:14 Protonix IVP 40 mg Q12H JEMIMA Administration Sodium Chloride 1 gm 02/19/20 09:00 02/19/20 09:11 Salt Tab PO 1 gm BID JEMIMA Administration Sucralfate 1 gm 02/17/20 17:00 02/19/20 09:11 Carafate Oral Li q PO 1 gm AC&BEDTIME JEMIMA Administration Sulfa (Sulfonamide Antibiotics) Allergy (Verified 02/16/20 17:27) ALGY-Rash Vitals/I&O/Wt Last Vital Signs Temp 98.0 F 02/19/20 11:54 Pulse 90 02/19/20 11:54 Resp 18 02/19/20 11:54 BP 101/53 02/19/20 11:54 Pulse Ox 97 02/19/20 11:54 02/18/20 02/19/20 02/19/20 22:59 06:59 14:59 Intake Total 420 / 2517.5 1162.5 / 3680.0 240 / 240 Output Total 1120 / 1120 1140 / 2260 Balance -700 / 1397.5 22.5 / 1420.0 240 / 240 Physical Exam Const: COMMON NORMALS: no acute distress and patient oriented x3 GENERAL APPEARANCE: cooperative and comfortable ORIENTATION/CONSCIOUSNESS: Yes awake OTHER: -very pleasant HENMT: COMMON NORMALS: normocephalic, atraumatic, hearing grossly normal bilaterally and moist oral mucous membranes HEAD & SCALP: normocephalic and atraumatic Eye: COMMON NORMALS: Equal, round and reactive pupils present, EOMs intact bilaterally and conjunctivae normal CONJUNCTIVA: Yes conjunctivae normal PUPIL: Yes Equal, round and reactive pupils present Neck/C-Spine: COMMON NORMALS: full ROM GENERAL: Yes normal visual inspection and Yes trachea midline Resp: COMMON NORMALS: normal respiratory effort, No retractions, No use of accessory muscles and clear to auscultation bilaterally EFFORT & INSPECTION: Yes able to speak in complete sentences, Yes symmetric chest movement and No tachypneic AUSCULTATION: clear to auscultation bilaterally Cardio: COMMON NORMALS: regular rate, regular rhythm, S1 normal heart sound present, S2 normal heart sound present and No murmurs present (Cardio) RATE: regular rate RHYTHM: regular rhythm HEART SOUNDS: S1 normal heart sound present and S2 normal heart sound present GI: COMMON NORMALS: Normal to inspection, nondistended, normoactive bowel sounds present, Soft to palpation and non-tender INSPECTION: Yes central obesity PALPATION: Yes Soft to palpation Extremity: COMMON NORMALS: normal to inspection, full ROM and no clubbing, cyanosis or edema; negative for no pedal edema Neuro: COMMON NORMALS: patient oriented x3, moves all extremities, no focal motor deficits and no sensory deficits noted Psych: COMMON NORMALS: mental status grossly normal, Normal thought process present, cooperative, normal affect and speech normal SPEECH: Yes normal speech THOUGHT PROCESS: Normal thought process present Skin: COMMON NORMALS: no rashes or lesions noted, no jaundice, no petechiae and no mottling GENERAL SKIN EXAM: no rashes or lesions noted Data : 02/19/20 04:30 02/19/20 04:30 A&P Assessment and plan (1) Acute GI bleeding: -Noted to have melanotic stools, with decreased appetite, and syncope/near syncope over the past several weeks -Has underlying history of liver cirrhosis with GI work-up done in July 2018 showing severe diffuse chronic patchy gastritis on endoscopy, with noted contact bleeding requiring injection of epinephrine, pathology showed normal gastric mucosa; colonoscopy done at the same time showed diverticulosis. No reported evidence of varices -Has been on PPI twice daily. Received an 80 mg dose of IV pantoprazole, continue PPI -has been on iron supplementation due to underlying normocytic anemia, baseline Hg is around 12 though minimal labs to reference -Surgery consult by Dr. Slater appreciated; conservative management for now and endoscopic evaluation if trend down in Hg or further bleeding -continue to trend H/H; stable so far -transfuse if Hg continues to drop (< 8) and/or symptomatic Status: Acute (2) History of cirrhosis of liver: -has been following up at [facility] in [place], less frequently lately due to coronavirus pandemic -normal LFTs Status: Chronic (3) Hyperkalemia: -continue to trend Status: Acute (4) Hepatic encephalopathy: -noted ammonia-70 -on lactulose Status: Acute (5) Acute hyponatremia: -on IVF hydration, start on oral replacement -close monitoring of Na to avoid overcorrection Status: Acute (6) Hypertension: -VSS; continue to monitor -continue to hold oral antihypertensives for now Status: Chronic Qualifiers: Hypertension type: essential hypertension Qualified Code(s): I10 - Essential (primary) hypertension (7) Hypothyroidism: -TSH wnl -continue levothyroxine Status: Chronic Qualifiers: Hypothyroidism type: unspecified Qualified Code(s): E03.9 - Hypothyr oidism, unspecified (8) Obstructive sleep apnea: Status: Chronic (9) CKD (chronic kidney disease) stage 2, GFR 60-89 ml/min: -baseline Cr wnl -current renal function at baseline Status: Chronic (10) History of diabetes mellitus: -hold oral meds -ISS, hypoglycemia precautions especially as NPO Status: Chronic Additional A&P Information -ctolerating full liquid diet; advance to GI soft diet -Hyperkalemia; resolved after kayexelate and calcium gluconate -GI ppx with PPI -DVT ppx with SCDs, no AC due to bleeding risk -Dispo: home -Code status: FULL code Attestations Medical Necessity Statement*: Patient requires hospitalization for continued correction of hyponatremia. Time Spent in Patient Care: 16 - 35 minutes (>than 50% of time spent in counselling and/or direct pt care on unit) . Coding Level of Care Code Acute Registered Radiologic Technologist for Chg Fwd Exam Comprehensive Diagnoses Acute GI bleeding K92.2 History of cirrhosis of liver Z87.19 Hyperkalemia E87.5 Hepatic encephalopathy K72.90 Acute hyponatremia E87.1 Hypertension I10 Hypertension type: essential hypertension Hypothyroidism E03.9 Hypothyroidism type: unspecified Obstructive sleep apnea G47.33 CKD (chronic kidney disease) stage 2, GFR 60-89 ml/min N18.2 History of diabetes mellitus Z86.39
[2020-02-19 16:00] VITALS: BP 97/58; PULSE 96; RESP 18; TEMP 36.8; O2SAT 95
[2020-02-19 16:42] LABS: Glucose Point of Care 169 mg/dL (70-110)
[2020-02-19] MEDS: sodium chloride 0.9% 1,000 ML 75 ML IV (18:22)
[2020-02-19 20:00] VITALS: BP 88/48; PULSE 82; RESP 20; TEMP 36.6; O2SAT 99
[2020-02-19 21:15] LABS: Glucose Point of Care 138 mg/dL (70-110)
[2020-02-20] VITALS: BP 89/52; PULSE 92; RESP 20; TEMP 36.7; O2SAT 92
[2020-02-20 04:00] VITALS: BP 94/60; PULSE 85; RESP 16; TEMP 36.6; O2SAT 97
[2020-02-20 04:10] LABS: Hemoglobin 8.5 g/dL (11.7-16.6)
[2020-02-20 04:26] LABS: Sodium 127 mmol/L (136-145)
[2020-02-20 04:29] LABS: Ammonia 69 umol/L (16-60)
[2020-02-20] MEDS: sodium chloride 0.9% 1,000 ML 75 ML IV (06:36)
[2020-02-20] MEDS: sucralfate 1 gm/10 mL Oral Liq UDC PO ×2 (06:37→08:41)
[2020-02-20 07:10] LABS: Glucose Point of Care 123 mg/dL (70-110)
[2020-02-20 08:00] VITALS: BP 93/57; PULSE 88; RESP 20; TEMP 36.5; O2SAT 98
[2020-02-20] MEDS: pantoprazole 40 mg SDV IVP (08:28)
[2020-02-20] MEDS: levothyroxine 25 mcg Tablet PO (08:41)
[2020-02-20] MEDS: sodium chloride 1 gm Tablet PO (08:41)
[2020-02-20 10:50] LABS: Glucose Point of Care 248 mg/dL (70-110)
--- NOTE | 2020-02-20 11:14 | PM.DCS ---
Discharge Providers Date of Admission: 02/16/20 19:33 Date of Discharge: February 20, 2020 Attending Provider at Admission: Riley Recio MD Attending Provider at Discharge: Fatuma Forrest MD Consults: Surgery, Dr. Slater Primary Care Provider: Floresita Bustillo DO Diagnoses at Discharge Discharge Diagnosis (1) Acute GI bleeding: Status: Acute Problem details: -Noted to have melanotic stools, with decreased appetite, and syncope/near syncope over the past several weeks -Has underlying history of liver cirrhosis with GI work-up done in July 2018 showing severe diffuse chronic patchy gastritis on endoscopy, with noted contact bleeding requiring injection of epinephrine, pathology showed normal gastric mucosa; colonoscopy done at the same time showed diverticulosis. No reported evidence of varices -Has been on PPI twice daily. Received an 80 mg dose of IV pantoprazole, continue PPI -has been on iron supplementation due to underlying normocytic anemia, baseline Hg is around 12 though minimal labs to reference -Surgery consult by Dr. Slater appreciated; conservative management for now and endoscopic evaluation if trend down in Hg or further bleeding -continue to trend H/H; stable so far -has not required transfusion of blood products (2) History of cirrhosis of liver: Status: Chronic Problem details: -has been following up at [facility] in [place], less frequently lately due to coronavirus pandemic -normal LFTs (3) Hepatic encephalopathy: Status: Acute Problem details: -noted ammonia-69; mentation at baseline -on lactulose (4) Acute hyponatremia: Status: Acute Problem details: -improved with hydration, on salt tablets -suspect some degree of this will persist chronically (5) Hypertension: Status: Chronic Problem details: -VSS -discontinue ARB, continue Aldactone; due to low normal BP and risk of hypotension Qualifiers: Hypertension type: essential hypertension Qualified Code(s): I10 - Essential (primary) hypertension (6) Hypothyroidism: Status: Chronic Problem details: -TSH wnl -continue levothyroxine Qualifiers: Hypothyroidism type: unspecified Qualified Code(s): E03.9 - Hypothyroidism, unspecified (7) History of diabetes mellitus: Status: Chronic Problem details: -resume oral meds (8) CKD (chronic kidney disease) stage 2, GFR 60-89 ml/min: Status: Chronic Problem details: -baseline Cr wnl -current renal function at baseline (9) Obstructive sleep apnea: Status: Chronic Problem details: -CPAP qhs (10) Hyperkalemia: Status: Resolved Reason for Visit Reason for Visit: DIZZY Hospital Course Hospital Course: Patient was initially admitted to ICU due to concern for acute GI bleeding having presented with several episodes of melanotic stools and noted to be anemic. He was initially kept n.p.o. in case of need for endoscopic evaluation. However following noted stability in his hemoglobin, no noted active bleeding, and per recommendation from surgery this was not deemed an emergent procedure. It is also worth noting that patient had endoscopic evaluation in 07/2018 showing severe diffuse chronic patchy gastritis and diverticulosis. Patient has been hemodynamically stable, with hemoglobin holding in the 8.5-9 range, and otherwise doing well. Once stable he was moved to the medical surgical floor for continued care. Oral intake was introduced once no need for procedure noted, and he has done well with this. He was also noted to be hyponatremic on admission and sodium has gradually increased with hydration and I have initiated salt tablets as this is going to likely be a chronic issue for him. He will be continued on salt tablets on discharge. He will need close follow-up with his primary care provider. Should he have a recurrence of melanotic stool and worsening anemia he would likely need endoscopic evaluation at that time. I will recommend follow-up CBC by his primary care provider during his follow-up visit to continue to monitor his hemoglobin. He has been following up with hepatology at [facility] in [place] and is encouraged to continue to do so. Discharge Summary: -Patient to follow-up with primary care provider within 1 week -Patient to continue to follow-up with hepatology at [facility] incident was Physical Exam Const: COMMON NORMALS: no acute distress and patient oriented x3 GENERAL APPEARANCE: cooperative and comfortable ORIENTATION/CONSCIOUSNESS: Yes awake OTHER: -very pleasant HENMT: COMMON NORMALS: normocephalic, atraumatic, hearing grossly normal bilaterally and moist oral mucous membranes HEAD & SCALP: normocephalic and atraumatic Eye: COMMON NORMALS: Equal, round and reactive pupils present, EOMs intact bilaterally and conjunctivae normal CONJUNCTIVA: Yes conjunctivae normal PUPIL: Yes Equal, round and reactive pupils present Neck/C-Spine: COMMON NORMALS: full ROM GENERAL: Yes normal visual inspection and Yes trachea midline Resp: COMMON NORMALS: normal respiratory effort, No retractions, No use of accessory muscles and clear to auscultation bilaterally EFFORT & INSPECTION: Yes able to speak in complete sentences, Yes symmetric chest movement and No tachypneic AUSCULTATION: clear to auscultation bilaterally Cardio: COMMON NORMALS: regular rate, regular rhythm, S1 normal heart sound present, S2 normal heart sound present and No murmurs present (Cardio) RATE: regular rate RHYTHM: regular rhythm HEART SOUNDS: S1 normal heart sound present and S2 normal heart sound present GI: COMMON NORMALS: Normal to inspection, nondistended, normoactive bowel sounds present, Soft to palpation and non-tender INSPECTION: Yes central obesity PALPATION: Yes Soft to palpation Extremity: COMMON NORMALS: normal to inspection, full ROM and no clubbing, cyanosis or edema; negative for no pedal edema Neuro: COMMON NORMALS: patient oriented x3, moves all extremities, no focal motor deficits and no sensory deficits noted Psych: COMMON NORMALS: mental status grossly normal, Normal thought process present, cooperative, normal affect and speech normal SPEECH: Yes normal speech THOUGHT PROCESS: Normal thought process present Skin: COMMON NORMALS: no rashes or lesions noted, no jaundice, no petechiae and no mottling GENERAL SKIN EXAM: no rashes or lesions noted Discharge Data Data Completed and Pending: Labs from last 24 hours 02/20/20 02/20/20 02/20/20 10:43 06:49 03:30 Hgb Hct Sodium 127 L POC Glucose 248 123 Ammonia Crossmatch 02/20/20 02/20/20 02/19/20 03:30 03:30 20:24 Hgb 8.5 L Hct 26.0 L Sodium POC Glucose 138 Ammonia 69 H Crossmatch 02/19/20 02/19/20 02/16/20 16:22 12:08 17:23 Hgb Hct Sodium POC Glucose 169 148 Ammonia Crossmatch See Detail Vitals: Last Vital Signs Temp 97.7 F 02/20/20 08:00 Pulse 88 02/20/20 08:00 Resp 20 H 02/20/20 08:00 BP 93/57 02/20/20 08:00 Pulse Ox 98 02/20/20 08:00 Discharge Plan Discharge Patient Disposition: Home Condition: Stable Prescriptions: New sodium chloride 1 gram Tablet 1 g PO BID Qty: 60 RF: 0 Carafate 1 gram tablet 1 gm PO TID 28 Days Qty: 84 RF: 0 Continued Multiple Vitamins Tablet 1 tab PO DAILY RF: 0 cyclobenzaprine 10 mg tablet 10 mg PO TID PRN (Reason: UNKNOWN) RF: 0 Tylenol Extra Strength 500 mg Tablet 1,000 mg PO PRN RF: 0 levothyroxine 25 mcg tablet 25 mcg PO DAILY RF: 0 iron 325 mg (65 mg iron) Tablet 325 mg PO BID RF: 0 betamethasone dipropionate 0.05 % ointment 1 applic TOPICAL PRN RF: 0 spironolactone 50 mg tablet 50 mg PO DAILY RF: 0 lactulose 10 gram/15 mL solution 30 ml PO BID RF: 0 Xifaxan 550 mg tablet 550 mg PO BID RF: 0 Xigduo XR 10-1,000 mg tablet, IR - ER, biphasic 24hr 1 tab PO DAILY RF: 0 Ozempic 0.25 mg or 0.5 mg(2 mg/1.5 mL) pen injector See Rx Instructions .ROUTE .COMPLEX RF: 0 omeprazole 20 mg Tablet,Delayed Release (Dr/Ec) 20 mg PO BID Qty: 60 RF: 0 Discontinued telmisartan 80 mg tablet 80 mg PO DAILY RF: 0 Discharge Orders: Discharge Order (Routine); Ordered 02/20/20 Ordered By: Fatuma Forrest Referrals: Floresita Bustillo DO [Primary Care Provider] - 4-7 days (Please call saturday to schedule a follow up appointment. Post hospital discharge follow up) Discharge Diet: Regular Discharge Activity: Increase activity as tolerated Patient Instructions: Sucralfate (By mouth), Gastrointestinal Bleeding (GEN), Hyponatremia (DC) Discharge Attestations Time Spent in Discharge Care*: greater than 30 min Specific Discharge Activities: Specific discharge activities: educating patient, educating and/or supporting family/caregiver, discussing with community case manager/social workers/dc planners, documenting/other paperwork and evaluating patient/reviewing data Status at Discharge: Cognitive status at discharge: cognitively intact, Behavioral status at discharge: cooperative and independent in ADL's, Functional status at discharge: independent ambulation Overall status at discharge: patient is progressing back to baseline Quality Metrics Clinical Quality Measures During this hospital stay, did patient experience: None Coding Level of Care Code Acute 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
[2020-02-20 11:27] VITALS: BP 94/60; PULSE 93; RESP 22; TEMP 36.9; O2SAT 96
[2020-02-20 11:40] VITALS: BP 94/60; PULSE 93; RESP 22; TEMP 36.9; O2SAT 96
== END 2020-02-20 13:52 | disposition home or self-care (01) | DRG 378 ==
LOC: ER 19:36 → ICU 19:43 → MEDSURG 02-17 23:09
PROVIDERS: Emergency Medicine; Family Medicine; Admitting Provider Internal Medicine; PCP Family Medicine; Visit Provider Family Medicine
DX: K92.2 Gastrointestinal hemorrhage, unspecified (principal); E87.1 Hypo-osmolality and hyponatremia; K72.90 Hepatic failure, unspecified without coma; K74.60 Unspecified cirrhosis of liver; E03.9 Hypothyroidism, unspecified; N18.2 Chronic kidney disease, stage 2 (mild); E11.22 Type 2 diabetes mellitus with diabetic chronic kidney disease; I12.9 Hypertensive chronic kidney disease with stage 1 through stage 4 chronic kidney disease, or unspecified chronic kidney disease; E87.5 Hyperkalemia; K21.9 Gastro-esophageal reflux disease without esophagitis; G47.33 Obstructive sleep apnea (adult) (pediatric); Z87.891 Personal history of nicotine dependence
CPT/HCPCS: 12345; 36415; 36416; 80048; 80053; 81001; 82140; 82533; 82962; 83036; 84295; 84443; 84484; 85014; 85018; 85025; 85610; 85730; 86850; 86900; 86920; 93005; 94660; 96372; 96375; 99283; C9113; J0610; J0696; J1815; J7030

== ENCOUNTER 2020-03-07 09:59 | Outpatient (CLI) | payer BC, SELFPAY ==
[2020-03-07 10:53] LABS: Basophils # 0.1 10^3/uL (0.0-0.1); Basophils % 1.6 %; Eosinophils # 0.2 10^3/uL (0.0-0.8); Eosinophils % 3.7 %; Hematocrit 24.3 % (42.0-52.0); Lymphocytes % 20.3 %; Mean Corpuscular HGB Conc 28.8 g/dL (30.0-36.0); Mean Corpuscular Volume 97.2 fL (80-94); Mean Platelet Volume 9.6 fL (7.4-10.4); Monocytes # 0.8 10^3/uL (0.2-0.9); Monocytes % 15.2 %; Neutrophils # 2.99 10^3/uL (1.8-7.7); Neutrophils % 58.8 %; Nucleated Red Blood Cells % 0 %; Platelet Count 209 10^3/cmm (130-400); Red Cell Distribution Width 16.1 % (12.1-15.1); White Blood Count 5.1 10^3/uL (4.0-10.0)
[2020-03-07 11:13] LABS: Anion Gap 15.8 (5-19); Blood Urea Nitrogen 18 mg/dL (8-23); Calcium 9.3 mg/dL (8.5-10.5); Carbon Dioxide 18 mmol/L (22-29); Chloride 108 mmol/L (98-107); Glomerular Filtration Rate 75.2 mL/min (90-130); Glucose 155 mg/dL (65-115); Osmolality Calculated 284 mOsm/kg (285-295); Potassium 4.8 mmol/L (3.5-5.1); Sodium 137 mmol/L (136-145)
== END 2020-03-07 10:00 | disposition home or self-care (01) ==
LOC: LAB 10:03
PROVIDERS: PCP Family Medicine; Visit Provider Surgery
DX: E87.1 Hypo-osmolality and hyponatremia (principal); D64.9 Anemia, unspecified
CPT/HCPCS: 80048; 85025

== ENCOUNTER 2020-03-07 14:50 | Observation (INO) | payer BC, SELFPAY ==
[2020-03-07] VITALS (18 sets, daily range): BP systolic 99–133; BP diastolic 60–74; PULSE 80–105; RESP 12–20; TEMP 36.7–37; O2SAT 96–100; BMI 31.4
--- NOTE | 2020-03-07 15:42 | XRR_ITS ---
PROCEDURE INFORMATION: Exam: XR Chest, 1 View Exam date and time: 03/07/2020 3:52 PM Age: 65 years old Clinical indication: Cough and dyspnea; Patient HX: Low o2 dizzy weak x 2 days; Additional info: Dyspnea/cough TECHNIQUE: Imaging protocol: XR of the chest Views: 1 view. COMPARISON: CR Chest 1 [place] [id number] 10/30/2014 11:00 PM FINDINGS: Lungs: There is poor inspiration volume loss and mild basilar vascular crowding. The vascularity is within normal limits. No consolidation. Pleural space: Unremarkable. No pleural effusion. No pneumothorax. Heart/Mediastinum: Unremarkable. No cardiomegaly. Bones/joints: No acute abnormality. XR/XR chest 1V portable [id number] IMPRESSION: No acute findings.
--- NOTE | 2020-03-07 16:01 | W.ED.RECABL ---
HPI - Recheck/Abnormal Lab/Rx General: Chief Complaint: Recheck/Abnormal Lab/Rx Stated Complaint: needs blood Time Seen by Provider: 03/07/20 14:57 History of Present Illness: HPI narrative: 65-year-old male presents emergency room at the direction of Dr. Slater. He is been having an upper GI bleed intermittently and as needed transfusions he is scheduled for an EGD tomorrow his hemoglobin was less than 7 and he is symptomatic Dr. Slater asked that he be admitted through the ER and transfusion started plans to do the endoscopy in the morning. He has not noticed any hematochezia melena hematemesis or coffee-ground emesis. He has had problems with GI bleed resulting in transfusions and EGDs in the past. He denies any chest pain but he has been lightheaded dizzy and somewhat shortness of breath short of breath earlier than he would normally anticipate his stamina has significantly decreased. Review of Systems Const: Denies: fever(s), chills, body aches, change in appetite, fatigue or malaise ENMT: Denies: throat pain, ear or mastoid pain, nasal discharge or nasal congestion Card: Reports: dyspnea on exertion; Denies: chest pain, edema or orthopnea Resp: Denies: dyspnea, productive cough or non-productive cough GI: Denies: abdominal pain, nausea, vomiting, hematemesis, coffee ground emesis, diarrhea, constipation, bloating, hematochezia or melena : Denies: flank pain, dysuria, urinary frequency or urinary urgency Skin/Breast: Denies: rash or pruritus [facility] ED PFSH: Medical History Acute hyponatremia -improved with hydration, on salt tablets -suspect some degree of this will persist chronically CKD (chronic kidney disease) stage 2, GFR 60-89 ml/min -baseline Cr wnl -current renal function at baseline GERD (gastroesophageal reflux disease) Hepatic encephalopathy -noted ammonia-69; mentation at baseline -on lactulose History of cirrhosis of liver -has been following up at [facility] in [place], less frequently lately due to coronavirus pandemic -normal LFTs History of diabetes mellitus -resume oral meds Hypertension -VSS -discontinue ARB, continue Aldactone; due to low normal BP and risk of hypotension Hypothyroidism -TSH wnl -continue levothyroxine Obstructive sleep apnea -CPAP qhs Surgical History History of appendectomy History of arthroscopic knee surgery History of surgery on upper extremity History of vasectomy Family History Other Diabetes Social History Smoking and tobacco status: former smoker Quit status (tobacco): has quit using tobacco Alcohol intake: former Physical Exam Const: COMMON NORMALS: no acute distress GENERAL APPEARANCE: cooperative and comfortable ORIENTATION/CONSCIOUSNESS: Yes awake, Yes oriented to person, Yes oriented to place and Yes oriented to time HENMT: COMMON NORMALS: normocephalic, atraumatic, hearing grossly normal bilaterally, external ears normal, EAC's normal, TM's normal bilaterally, Normal nasal mucous membranes and turbinates present, moist oral mucous membranes and oropharynx normal HEAD & SCALP: normocephalic and atraumatic NOSE: Normal nasal mucous membranes and turbinates present EXTERNAL EAR: Yes external ears normal EXTERNAL AUDITORY CANAL: EAC's normal TYMPANIC MEMBRANE: TM's normal bilaterally Eye: COMMON NORMALS: Equal, round and reactive pupils present, EOMs intact bilaterally, conjunctivae normal and no scleral icterus CONJUNCTIVA: Yes conjunctivae normal PUPIL: Yes Equal, round and reactive pupils present Neck/C-Spine: COMMON NORMALS: full ROM, no lymphadenopathy, supple and no JVD Lymph: LYMPHATIC: no lymphadenopathy noted and no lymphedema noted Resp: COMMON NORMALS: normal respiratory effort, No retractions, No use of accessory muscles and clear to auscultation bilaterally AUSCULTATION: clear to auscultation bilaterally Cardio: COMMON NORMALS: no JVD, regular rate, regular rhythm and No murmurs present (Cardio) RATE: regular rate RHYTHM: regular rhythm GI: COMMON NORMALS: Soft to palpation and No hepatosplenomegaly present AUSCULTATION: Yes normoactive bowel sounds PALPATION: Yes Soft to palpation, No Tenderness to palpation present (GI), No Guarding due to palpation present (GI) and Yes No hepatosplenomegaly present Extremity: COMMON NORMALS: normal to inspection, capillary refill normal, no clubbing, cyanosis or edema, no calf tenderness and no pedal edema Neuro: SENSORIUM/ORIENTATION: Yes oriented to person, Yes oriented to place and Yes oriented to time Skin: COMMON NORMALS: no rashes or lesions noted GENERAL SKIN EXAM: no rashes or lesions noted Course Vital Signs: Vital signs: Vital Signs Temperature 98.2 F 03/08/20 03:56 Pulse Rate 79 03/08/20 03:56 Respiratory Rate 18 03/08/20 03:56 Blood Pressure 102/66 03/08/20 03:56 Pulse Oximetry 98 03/08/20 03:56 MDM - Recheck/Abnormal Lab/Rx MDM Narrative: Medical decision making narrative: Hemoglobin 6 1 transfuse 2 units packed red blood cells discussed with Dr. Slater he will follow the patient on the floor the plan to do an EGD in the morning also start on Protonix Lab Data: Labs: Lab Results 03/07/20 03/07/20 03/07/20 Range/Units 13:57 16:04 16:04 WBC 4.5 (4.0-10.0) 10^3/ uL RBC 2.24 L (4.1-5.3) 10^6/u L Hgb 6.1 L* (11.7-16.6) g/dL Hct 21.0 L (42.0-52.0) % MCV 93.8 (80-94) fL MCH 27.2 L (28.0-34.0) pg MCHC 29.0 L (30.0-36.0) g/dL RDW 16.0 H (12.1-15.1) % Plt Count 183 (130-400) 10^3/c mm MPV 9.5 (7.4-10.4) fL Neut % (Auto) 57.2 % Lymph % (Auto) 22.2 % [place] % (Auto) 14.6 % Eos % (Auto) 4.0 % Baso % (Auto) 1.8 % Neut # (Auto) 2.58 (1.8-7.7) 10^3/u L Lymph # (Auto) 1.0 (0.8-4.8) 10^3/u L [place] # (Auto) 0.7 (0.2-0.9) 10^3/u L Eos # (Auto) 0.2 (0.0-0.8) 10^3/u L Baso # (Auto) 0.1 (0.0-0.1) 10^3/u L Nucleated RBC % (a uto) 0 % Nucleated RBCs # 0.0 /100WBC Sodium 136 (136-145) mmol/L Potassium 4.1 (3.5-5.1) mmol/L Chloride 107 (98-107) mmol/L Carbon Dioxide 18 L (22-29) mmol/L Anion Gap 15.1 (5-19) BUN 18 (8-23) mg/dL Creatinine 1.0 (0.7-1.2) mg/dL GFR Calculation 75.2 L (90-130) mL/min Glucose 180 H (65-115) mg/dL Calculated Osmolal ity 283 L (285-295) mOsm/k g Calcium 8.9 (8.5-10.5) mg/dL Magnesium 2.2 (1.7-2.3) mg/dL Total Bilirubin 1.3 H (0.15-1.2) mg/dL AST 39 (0-40) U/L ALT 34 (0-41) U/L Alkaline Phosphata se 65 (40-130) IU/L Total Protein 6.0 L (6.6-8.7) g/dL Albumin 3.5 (3.5-5.2) g/dL Globulin 2.5 (1.3-4.6) g/dL Urine Color Yellow (Yellow) Urine Appearance Clear (CLEAR) Urine pH 5 (5-7) Ur Specific Gravit y 1.020 (1.005-1.030) Urine Protein Neg (Negative) Urine Glucose (UA) 4+ H (Normal) Urine Ketones 1+ H (Negative) Urine Blood Neg (Negative) Urine Nitrate Negative (Negative) Urine Bilirubin Neg (NEGATIVE) Urine Urobilinogen 1 H (Negative) mg/dL Ur Leukocyte Denia ase Negative (Negative) Blood Type Rho(D) Type Antibody Screen Crossmatch 03/07/20 Range/Units 16:04 WBC (4.0-10.0) 10^3/ uL RBC (4.1-5.3) 10^6/u L Hgb (11.7-16.6) g/dL Hct (42.0-52.0) % MCV (80-94) fL MCH (28.0-34.0) pg MCHC (30.0-36.0) g/dL RDW (12.1-15.1) % Plt Count (130-400) 10^3/c mm MPV (7.4-10.4) fL Neut % (Auto) % Lymph % (Auto) % [place] % (Auto) % Eos % (Auto) % Baso % (Auto) % Neut # (Auto) (1.8-7.7) 10^3/u L Lymph # (Auto) (0.8-4.8) 10^3/u L [place] # (Auto) (0.2-0.9) 10^3/u L Eos # (Auto) (0.0-0.8) 10^3/u L Baso # (Auto) (0.0-0.1) 10^3/u L Nucleated RBC % (a uto) % Nucleated RBCs # /100WBC Sodium (136-145) mmol/L Potassium (3.5-5.1) mmol/L Chloride (98-107) mmol/L Carbon Dioxide (22-29) mmol/L Anion Gap (5-19) BUN (8-23) mg/dL Creatinine (0.7-1.2) mg/dL GFR Calculation (90-130) mL/min Glucose (65-115) mg/dL Calculated Osmolal ity (285-295) mOsm/k g Calcium (8.5-10.5) mg/dL Magnesium (1.7-2.3) mg/dL Total Bilirubin (0.15-1.2) mg/dL AST (0-40) U/L ALT (0-41) U/L Alkaline Phosphata se (40-130) IU/L Total Protein (6.6-8.7) g/dL Albumin (3.5-5.2) g/dL Globulin (1.3-4.6) g/dL Urine Color (Yellow) Urine Appearance (CLEAR) Urine pH (5-7) Ur Specific Gravit y (1.005-1.030) Urine Protein (Negative) Urine Glucose (UA) (Normal) Urine Ketones (Negative) Urine Blood (Negative) Urine Nitrate (Negative) Urine Bilirubin (NEGATIVE) Urine Urobilinogen (Negative) mg/dL Ur Leukocyte Denia ase (Negative) Blood Type A Positive Rho(D) Type Positive Antibody Screen Negative Crossmatch See Detail Discharge Plan Discharge Patient Disposition: Admitted As Inpatient Admit Provider: Parag Slater Clinical Impression: Upper GI bleed, Anemia Condition: Stable Interventions: ED Discharge Assessment Last Done: 03/07/20 17:39 ED Charges Last Done: 03/07/20 17:39 Discharge Date/Time: 03/07/20 17:47 Coding Level of Care Code ED Specialty Transformer Assembler for Chg Fwd Exam Comprehensive
[2020-03-07 16:02] LABS: Add Urine Microscopic? NO
[2020-03-07 16:12] LABS: Protein Urine Neg (Negative); Urine Appearance Clear (CLEAR); Urine Color Yellow (Yellow); pH Urine 5 (5-7)
[2020-03-07 16:13] LABS: Bilirubin Urine Neg (NEGATIVE); Blood Urine Neg (Negative); Glucose Urine UA 4+ (Normal); Ketones Urine 1+ (Negative); Leukocyte Esterase Urine Negative (Negative); Nitrate Urine Negative (Negative); Urobilinogen Urine 1 mg/dL (Negative)
[2020-03-07 16:15] LABS: Basophils # 0.1 10^3/uL (0.0-0.1); Basophils % 1.8 %; Eosinophils # 0.2 10^3/uL (0.0-0.8); Lymphocytes % 22.2 %; Mean Corpuscular Hemoglobin 27.2 pg (28.0-34.0); Mean Corpuscular Volume 93.8 fL (80-94); Mean Platelet Volume 9.5 fL (7.4-10.4); Monocytes # 0.7 10^3/uL (0.2-0.9); Monocytes % 14.6 %; Neutrophils # 2.58 10^3/uL (1.8-7.7); Neutrophils % 57.2 %; Nucleated Red Blood Cells % 0 %; Platelet Count 183 10^3/cmm (130-400); Red Blood Count 2.24 10^6/uL (4.1-5.3); White Blood Count 4.5 10^3/uL (4.0-10.0)
[2020-03-07 16:23] LABS: Hemoglobin 6.1 g/dL (11.7-16.6)
[2020-03-07] MEDS: pantoprazole 40 mg SDV IVP (16:25)
[2020-03-07 16:36] LABS: Alanine Aminotransferase 34 U/L (0-41); Albumin Level 3.5 g/dL (3.5-5.2); Alkaline Phosphatase 65 IU/L (40-130); Anion Gap 15.1 (5-19); Aspartate Amino Transferase 39 U/L (0-40); Blood Urea Nitrogen 18 mg/dL (8-23); Calcium 8.9 mg/dL (8.5-10.5); Carbon Dioxide 18 mmol/L (22-29); Chloride 107 mmol/L (98-107); Globulin 2.5 g/dL (1.3-4.6); Glomerular Filtration Rate 75.2 mL/min (90-130); Glucose 180 mg/dL (65-115); Magnesium 2.2 mg/dL (1.7-2.3); Osmolality Calculated 283 mOsm/kg (285-295); Potassium 4.1 mmol/L (3.5-5.1); Sodium 136 mmol/L (136-145); Total Bilirubin 1.3 mg/dL (0.15-1.2)
[2020-03-07 18:30] LABS: Glucose Point of Care 139 mg/dL (70-110)
[2020-03-07 19:49] LABS: Glucose Point of Care 133 mg/dL (70-110)
[2020-03-08] VITALS (17 sets, daily range): BP systolic 90–123; BP diastolic 49–75; PULSE 68–89; RESP 12–18; TEMP 36.1–36.9; O2SAT 96–100
[2020-03-08] MEDS: D5-NS 0.45% + KCL 20 mEq 20 MEQ/1,000 ML BAG 125 MEQ IV ×2 (02:15→08:50)
[2020-03-08 06:07] LABS: Basophils # 0.1 10^3/uL (0.0-0.1); Basophils % 1.8 %; Eosinophils # 0.2 10^3/uL (0.0-0.8); Eosinophils % 4.7 %; Hematocrit 25.3 % (42.0-52.0); Hemoglobin 7.7 g/dL (11.7-16.6); Lymphocytes # 0.9 10^3/uL (0.8-4.8); Mean Corpuscular HGB Conc 30.4 g/dL (30.0-36.0); Mean Corpuscular Hemoglobin 27.3 pg (28.0-34.0); Mean Corpuscular Volume 89.7 fL (80-94); Mean Platelet Volume 9.9 fL (7.4-10.4); Monocytes # 0.6 10^3/uL (0.2-0.9); Monocytes % 16.7 %; Neutrophils # 1.74 10^3/uL (1.8-7.7); Neutrophils % 50.8 %; Nucleated Red Blood Cells % 0 %; Platelet Count 135 10^3/cmm (130-400); Red Blood Count 2.82 10^6/uL (4.1-5.3); White Blood Count 3.4 10^3/uL (4.0-10.0)
[2020-03-08 06:31] LABS: Anion Gap 13.3 (5-19); Blood Urea Nitrogen 18 mg/dL (8-23); Calcium 8.3 mg/dL (8.5-10.5); Carbon Dioxide 19 mmol/L (22-29); Chloride 108 mmol/L (98-107); Creatinine Clr Calc Pharmacy 109.9795; Glucose 154 mg/dL (65-115); Osmolality Calculated 282 mOsm/kg (285-295); Potassium 4.3 mmol/L (3.5-5.1); Sodium 136 mmol/L (136-145)
[2020-03-08 06:48] LABS: Glucose Point of Care 157 mg/dL (70-110)
--- NOTE | 2020-03-08 09:28 | P.ANESASSM_ITS ---
Pre-Anesthetic Assessment Pre-Anesthetic Assessment: Height/Weight: Height 1.88 m Weight 111.13 kg Temp Pulse Resp BP Pulse Ox 97.6 F 84 12 90/49 98 03/08/20 08:00 03/08/20 08:00 03/08/20 08:00 03/08/20 08:00 03/08/20 08:00 Proposed Procedure: Operation Date: 03/08/20 10:45 Proposed Procedures p EGD 95058 D64.9(Not Applicable) - Parag Slater MD Familial anesthetic complications: none Was Beta Venkat taken within 24 hours: N/A Last intake: Intake Last Liquid Date 03/07/20 Last Liquid Time 23:30 Last Solid Date 03/07/20 Last Solid Time 23:30 Social: Social History: No alcohol and No tobacco Exam: Pre-Anes Outpt Exam: alert, oriented x 3, clear to auscultation bilaterally and regular rate & rhythm Airway: Cervical ROM: WNL MP: 4 Dentition: Full Pulmonary: Pulmonary: JUAREZ (since the GI bleed) and Sleep apnea (cpap) CV/HEM: CV/HEM: HTN : : Chronic renal Insufficiency Hepatic: Hepatic: Cirrohsis (hepatitis ) and Hepatitis GI: GI: GERD Metabolic: Metabolic: DM and Thyroid Musc/skel: Musc/skel: None reported Neuropsych: Neuropsych: None reported Anesthetic Plan: ASA status: 3 Anesthesia: MAC Other: Patient denies hx vomiting Risk of > 500 ml blood loss (7ml/kg in children): No Meds/Allergies Current Medications: Current Medications Generic Name Dose Route Start Last Admin Trade Name Freq PRN Reason Stop Dose Admin Potassium Chloride /Dextrose/Sod Cl 20 meq in 1,000 m ls @ 125 mls/hr 03/07/20 17:51 03/08/20 08:50 D5-Ns 0.45% + David l 20 Meq IV 125 mls/hr .Q8H JEMIMA Administration Insulin Aspart 0 unit 03/07/20 21:00 03/08/20 08:49 Novolog SUBCUT 4 unit WM&BEDTIME JEMIMA Administration Protocol PFSH Anesthesia PFSH: Medical History Acute hyponatremia -improved with hydration, on salt tablets -suspect some degree of this will persist chronically CKD (chronic kidney disease) stage 2, GFR 60-89 ml/min -baseline Cr wnl -current renal function at baseline GERD (gastroesophageal reflux disease) Hepatic encephalopathy -noted ammonia-69; mentation at baseline -on lactulose History of cirrhosis of liver -has been following up at [facility] in [place], less frequently lately due to coronavirus pandemic -normal LFTs History of diabetes mellitus -resume oral meds Hypertension -VSS -discontinue ARB, continue Aldactone; due to low normal BP and risk of hypotension Hypothyroidism -TSH wnl -continue levothyroxine Obstructive sleep apnea -CPAP qhs Surgical History History of appendectomy History of arthroscopic knee surgery History of surgery on upper extremity History of vasectomy Family History Other Diabetes Social History Smoking and tobacco status: former smoker Quit status (tobacco): has quit using tobacco Alcohol intake: former Data Anesthesia CBC & Chem 7: 03/08/20 05:03 03/08/20 05:03 Other Labs: Laboratory Results - last 48 hr 03/07/20 03/07/20 03/07/20 13:57 16:04 16:04 WBC 4.5 RBC 2.24 L Hgb 6.1 L* Hct 21.0 L MCV 93.8 MCH 27.2 L MCHC 29.0 L RDW 16.0 H Plt Count 183 MPV 9.5 Neut % (Auto) 57.2 Lymph % (Auto) 22.2 [place] % (Auto) 14.6 Eos % (Auto) 4.0 Baso % (Auto) 1.8 Neut # (Auto) 2.58 Lymph # (Auto) 1.0 [place] # (Auto) 0.7 Eos # (Auto) 0.2 Baso # (Auto) 0.1 Nucleated RBC % (auto) 0 Nucleated RBCs # 0.0 Sodium 136 Potassium 4.1 Chloride 107 Carbon Dioxide 18 L Anion Gap 15.1 BUN 18 Creatinine 1.0 GFR Calculation 75.2 L Glucose 180 H POC Glucose Calculated Osmolality 283 L Calcium 8.9 Magnesium 2.2 Total Bilirubin 1.3 H AST 39 ALT 34 Alkaline Phosphatase 65 Total Protein 6.0 L Albumin 3.5 Globulin 2.5 Urine Color Yellow Urine Appearance Clear Urine pH 5 Ur Specific [place] 1.020 Urine Protein Neg Urine Glucose (UA) 4+ H Urine Ketones 1+ H Urine Blood Neg Urine Nitrate Negative Urine Bilirubin Neg Urine Urobilinogen 1 H Ur Leukocyte Esterase Negative Blood Type Rho(D) Type Antibody Screen Crossmatch 03/07/20 03/07/20 03/07/20 16:04 18:28 19:30 WBC RBC Hgb Hct MCV MCH MCHC RDW Plt Count MPV Neut % (Auto) Lymph % (Auto) [place] % (Auto) Eos % (Auto) Baso % (Auto) Neut # (Auto) Lymph # (Auto) [place] # (Auto) Eos # (Auto) Baso # (Auto) Nucleated RBC % (auto) Nucleated RBCs # Sodium Potassium Chloride Carbon Dioxide Anion Gap BUN Creatinine GFR Calculation Glucose POC Glucose 139 133 Calculated Osmolality Calcium Magnesium Total Bilirubin AST ALT Alkaline Phosphatase Total Protein Albumin Globulin Urine Color Urine Appearance Urine pH Ur Specific [place] Urine Protein Urine Glucose (UA) Urine Ketones Urine Blood Urine Nitrate Urine Bilirubin Urine Urobilinogen Ur Leukocyte Esterase Blood Type A Positive Rho(D) Type Positive Antibody Screen Negative Crossmatch See Detail 03/08/20 03/08/20 03/08/20 05:03 05:03 06:32 WBC 3.4 L RBC 2.82 L Hgb 7.7 L Hct 25.3 L MCV 89.7 MCH 27.3 L MCHC 30.4 RDW 16.0 H Plt Count 135 MPV 9.9 Neut % (Auto) 50.8 Lymph % (Auto) 26.0 [place] % (Auto) 16.7 Eos % (Auto) 4.7 Baso % (Auto) 1.8 Neut # (Auto) 1.74 L Lymph # (Auto) 0.9 [place] # (Auto) 0.6 Eos # (Auto) 0.2 Baso # (Auto) 0.1 Nucleated RBC % (auto) 0 Nucleated RBCs # 0.0 Sodium 136 Potassium 4.3 Chloride 108 H Carbon Dioxide 19 L Anion Gap 13.3 BUN 18 Creatinine 0.9 GFR Calculation 85.0 L Glucose 154 H POC Glucose 157 Calculated Osmolality 282 L Calcium 8.3 L Magnesium Total Bilirubin AST ALT Alkaline Phosphatase Total Protein Albumin Globulin Urine Color Urine Appearance Urine pH Ur Specific [place] Urine Protein Urine Glucose (UA) Urine Ketones Urine Blood Urine Nitrate Urine Bilirubin Urine Urobilinogen Ur Leukocyte Esterase Blood Type Rho(D) Type Antibody Screen Crossmatch Cardiac Studies: No Data to Display
[2020-03-08] MEDS: sodium chloride 0.9% 1,000 ML 30 ML IV (10:00)
--- NOTE | 2020-03-08 10:27 | PC.CHAP ---
Pastoral Care Encounter/Spiritual Assessment Type of Contact [] Declined seal skinner visit [] Patient/Family/Request visit [] Outpatient visit [x] Follow-up visit [] Physician referral [] Code/Alert [] Routine visit [] Staff referral [] Actively dying [] Patient sleeping [] Family support [] [] Out of room [] Palliative care [] [] Receiving care in room [] Pre-surgical visit [] Trauma [] Long length of stay [] ICU visit [x] Other: in tests Relational/Emotional Strength [] Patient feels connected with others/family/visitors/staff [] Distress [] Loneliness/isolation [] Abandonment Spirituality of Patient [] Person of Moni [] Attends Sabianism of their Moni [] Believes in Prayer [] Reads Bible or Yazidism materials [] There are Spiritual issues to be addressed Instrument Setter Interventions [] Prayer [] Active listening [] Non-anxious presence [] Spiritual/emotional support [] Crisis/trauma care [] Spiritual counseling [] Bereavement support [] Provided bereavement packet [] Provided Bible/devotional materials [] Provided toy/stuffed animal, coloring book to patient or family member [] Provided Communion [] Anointing/Harmans [] Salvation [] Completed spiritual assessment [] Other: Impact on Illness or Injury [] Angry [] Fearful [] Anxious [] Often cries [] Exhaustion [] Unable to work [] Unable to attend latter day [] Unable to walk/stand [] Unable to read [] Unable to drive [] Unable to eat/drink [] Unable to sleep [] Unable to be with family [] Patient intubated [] Other: Summary in tests Time spent with patient 5 mins
--- NOTE | 2020-03-08 10:37 | PM.PN ---
Subjective Subjective: Interval history: No issues overnight, patient received 2 units PRBC, hemoglobin this morning is up to 7.7 from 6 last night Vitals/I&O/Wt Last Vital Signs Temp 97.1 F L 03/08/20 10:20 Pulse 74 03/08/20 10:20 Resp 18 03/08/20 10:20 BP 115/62 03/08/20 10:20 Pulse Ox 99 03/08/20 10:20 03/07/20 03/08/20 03/08/20 22:59 06:59 14:59 Intake Total 350 / 700 350 / 700 822.917 / 822.917 Output Total 375 / 375 650 / 650 Balance -25 / 325 350 / 325 172.917 / 172.917 Weight last 48 hrs Weight 245 lb Physical Exam Narrative: EXAM NARRATIVE: Abdomen: Soft Data : 03/08/20 05:03 03/08/20 05:03 A&P Assessment and plan (1) Upper GI bleed: Patient received 1 unit of PRBC EGD under MAC today Status: Acute Attestations Medical Necessity Statement*: Acute blood loss anemia Coding Level of Care Code Acute Brand Strategist for Chg Fwd Diagnoses Upper GI bleed K92.2
--- NOTE | 2020-03-08 10:54 | ANE.PACU2 ---
Inpatient post-anesthesia follow up: Airway intact: Yes Vital signs: Temperature 97.2 F Pulse Rate [Monito r] 105 Pulse Rate 88 Respiratory Rate 16 Blood Pressure [Ri ght Arm] 128/62 Blood Pressure 98/56 Pulse Oximetry 100 Oxygen Delivery Me thod Nasal Cannula Oxygen Flow Rate 2.0 Fraction of Inspir ed Oxygen Hydration adequate: Yes Nausea and vomiting: No Pain level: 1 Mental status: Baseline
[2020-03-08 11:51] LABS: Glucose Point of Care 110 mg/dL (70-110)
--- NOTE | 2020-03-14 09:03 | P.SS_ITS ---
Short Stay Summary Providers Date of Admit/Discharge: 03/14/20 Attending Provider: Parag Slater MD Primary Care Provider: Floresita Bustillo DO Chief Complaint: needs blood HPI History of Present Illness Luis Muñoz is a 65 year old male who has previously been diagnosed with chronic liver disease with esophageal varices and anemia. Patient had been recently hospitalized for anemia and had been managed conservatively. He presented to my clinic with dizziness and his hemoglobin was noted to be 6.1 when it was rechecked that day. Review of Systems General: Reports: 10 or more systems reviewed and unremarkable except in HPI and below Home Meds/Allergies Home Medications and Allergies Home Medications Medication Instructions Recorded Confirmed Type Ozempic See Rx Instructions .ROUTE .COMPLEX 02/16/20 03/07/20 History Xifaxan 550 mg PO BID 02/16/20 03/07/20 History Xigduo XR 1 tab PO DAILY 02/16/20 03/07/20 History acetaminophen [Tylenol Extra 1,000 mg PO PRN 02/16/20 03/07/20 History Strength] betamethasone dipropionate 1 applic TOPICAL PRN 02/16/20 03/07/20 History ferrous sulfate [iron] 325 mg PO BID 02/16/20 03/07/20 History levothyroxine 25 mcg PO DAILY 02/16/20 03/07/20 History spironolactone 50 mg PO DAILY 02/16/20 03/07/20 History cyclobenzaprine 10 mg PO TID PRN 03/07/20 03/07/20 History lactulose 30 ml PO BID 03/07/20 03/07/20 History Allergies Allergy/AdvReac Type Severity Reaction Status Date / Time Sulfa (Sulfonamide Allergy ALGY-Rash Verified 03/07/20 15:01 Antibiotics) PFSH Acute PFSH: Medical History Acute hyponatremia -improved with hydration, on salt tablets -suspect some degree of this will persist chronically CKD (chronic kidney disease) stage 2, GFR 60-89 ml/min -baseline Cr wnl -current renal function at baseline GERD (gastroesophageal reflux disease) Hepatic encephalopathy -noted ammonia-69; mentation at baseline -on lactulose History of cirrhosis of liver -has been following up at [facility] in [place], less frequently lately due to coronavirus pandemic -normal LFTs History of diabetes mellitus -resume oral meds Hypertension -VSS -discontinue ARB, continue Aldactone; due to low normal BP and risk of hypotension Hypothyroidism -TSH wnl -continue levothyroxine Obstructive sleep apnea -CPAP qhs Surgical History History of appendectomy History of arthroscopic knee surgery History of surgery on upper extremity History of vasectomy Family History Other Diabetes Social History Smoking and tobacco status: former smoker Quit status (tobacco): has quit using tobacco Alcohol intake: former Vitals/I&O/Wt Last Vital Signs Temp 97.6 F 03/08/20 13:27 Pulse 80 03/08/20 13:27 Resp 14 03/08/20 13:27 BP 109/73 03/08/20 13:27 Pulse Ox 98 03/08/20 13:27 Physical Exam Narrative: EXAM NARRATIVE: HEENT: Normocephalic Eye: Sclera /conjunctiva normal Respiratory and chest: Bilateral clear breath sounds on auscultation Cardiovascular: Normal S1 and S2 heart sounds Abdomen: Soft to palpation Neurological: Oriented to place person and time Skin: Intact, no lesions appreciated on gross exam Hospital Course Hospital Course: Patient was admitted to the hospital and kept overnight where he received a total of 3 units of blood. He underwent an EGD which showed grade D esophageal varices which were not bleeding and chronic gastritis in the antrum. At the time of discharge patient was tolerating a regular diet and was not dizzy. He was hemodynamically stable. SSS Data Data Completed and Pending: Completed Studies During Hospitalization Category Date Time Status XR chest 1V cassie ble [id number] Stat Exams 03/07/20 15:42 Completed Pathology: Surgic al [PTH] Routine Pth 03/08/20 10:50 Completed Diagnoses at Discharge Discharge Diagnosis (1) Upper GI bleed: Status: Acute Discharge Plan Discharge Patient Disposition: Home Condition: Stable Prescriptions: Continued acetaminophen [Tylenol Extra Strength] 500 mg Tablet 1,000 mg PO PRN RF: 0 levothyroxine 25 mcg tablet 25 mcg PO DAILY RF: 0 ferrous sulfate [iron] 325 mg (65 mg iron) Tablet 325 mg PO BID RF: 0 betamethasone dipropionate 0.05 % ointment 1 applic TOPICAL PRN RF: 0 spironolactone 50 mg tablet 50 mg PO DAILY RF: 0 Xifaxan 550 mg tablet 550 mg PO BID RF: 0 Xigduo XR 10-1,000 mg tablet, IR - ER, biphasic 24hr 1 tab PO DAILY RF: 0 Ozempic 0.25 mg or 0.5 mg(2 mg/1.5 mL) pen injector See Rx Instructions .ROUTE .COMPLEX RF: 0 sodium chloride 1 gram Tablet 1 g PO BID Qty: 60 RF: 0 sucralfate [Carafate] 1 gram tablet 1 gm PO TID 28 Days Qty: 84 RF: 0 cyclobenzaprine 10 mg tablet 10 mg PO TID PRN (Reason: Muscle Spasm) RF: 0 lactulose 10 gram/15 mL solution 30 ml PO BID RF: 0 Changed omeprazole 20 mg Tablet,Delayed Release (Dr/Ec) 40 mg PO BID Qty: 60 RF: 0 Discharge Orders: Discharge Order (Routine); Ordered 03/08/20 Ordered By: Parag Slater Referrals: Parag Slater MD [Physician] - 03/22/20 2:30 pm Discharge Diet: Advance as tolerated Discharge Activity: Resume usual activity Patient Instructions: Pantoprazole (By mouth), GI Discharge Instructions Discharge Date/Time: 03/08/20 14:25 Attestations Medical Necessity Statement*: GI bleed Time Spent in Patient Care*: less than 30 min Status at Discharge: Cognitive status at discharge: cognitively intact , Behavioral status at discharge: cooperative and independent in ADL's , Quality Metrics Clinical Quality Measures: During this hospital stay, did patient experience: None Coding Level of Care Code Acute Chemical Lab Technician for Chg Fwd Diagnoses Upper GI bleed K92.2
== END 2020-03-08 14:25 | disposition home or self-care (01) ==
LOC: ER 16:28 → MEDSURG 17:30
PROVIDERS: Family Medicine; Admitting Provider Surgery; PCP Family Medicine; Visit Provider Surgery
PROC: 0DJ08ZZ Inspection of Upper Intestinal Tract, Via Natural or Artificial Opening Endoscopic (ICD-10-PCS; CPT 43235; principal; 2020-03-08 10:45)
DX: K92.2 Gastrointestinal hemorrhage, unspecified (principal); D50.9 Iron deficiency anemia, unspecified; K31.9 Disease of stomach and duodenum, unspecified; I12.9 Hypertensive chronic kidney disease with stage 1 through stage 4 chronic kidney disease, or unspecified chronic kidney disease; E11.22 Type 2 diabetes mellitus with diabetic chronic kidney disease; N18.2 Chronic kidney disease, stage 2 (mild); E03.9 Hypothyroidism, unspecified; G47.33 Obstructive sleep apnea (adult) (pediatric); K74.60 Unspecified cirrhosis of liver; K72.90 Hepatic failure, unspecified without coma; Z87.891 Personal history of nicotine dependence; Z79.84 Long term (current) use of oral hypoglycemic drugs; Z99.89 Dependence on other enabling machines and devices
CPT/HCPCS: 12345; 36415; 36416; 36430; 43239; 71045; 80048; 80053; 81003; 82962; 83735; 85025; 86850; 86900; 86920; 88305; 96360; 96361; 96372; 96374; 96375; 99282; 99285; C9113; G0378; J1815; J7030; P9016

== ENCOUNTER → 2020-04-06 10:57 | Day surgery (SDC) | payer BC, SELFPAY ==
[2020-04-06] VITALS (12 sets, daily range): BP systolic 99–108; BP diastolic 53–72; PULSE 68–87; RESP 18; TEMP 36.4–37.1; O2SAT 98–99
[2020-04-06] MEDS: acetaminophen 325 mg Tablet 650 MG PO (11:32)
[2020-04-06] MEDS: diphenhydrAMINE 25 mg Capsule PO (11:32)
== END ==
PROVIDERS: PCP Family Medicine; Visit Provider Surgery
DX: K92.2 Gastrointestinal hemorrhage, unspecified (principal); D64.9 Anemia, unspecified; I85.00 Esophageal varices without bleeding
CPT/HCPCS: 36415; 36430; 86850; 86900; 86920; J2704; P9016

== ENCOUNTER 2020-04-10 09:23 | Emergency (ER) | payer BC, SELFPAY ==
[2020-04-10 09:30] VITALS: BP 120/78; PULSE 107; RESP 16; TEMP 36.5; O2SAT 97; BMI 32.3
--- NOTE | 2020-04-10 09:57 | CTR_ITS ---
PROCEDURE INFORMATION: Exam: CT Abdomen And Pelvis With Contrast Exam date and time: 04/10/2020 11:09 AM Age: 65 years old Clinical indication: Abdominal pain; Generalized; Prior surgery; Surgery date: 6+ months; Surgery type: Appy; Additional info: Acites, abdominal distension, esophogeal varices, cirrhosis TECHNIQUE: Imaging protocol: Computed tomography of the abdomen and pelvis with intravenous contrast. Radiation optimization: All CT scans at this facility use at least one of these dose optimization techniques: automated exposure control; mA and/or kV adjustment per patient size (includes targeted exams where dose is matched to clinical indication); or iterative reconstruction. Contrast material: OMNIPAQUE 300; Contrast volume: 95 ml; Contrast route: INTRAVENOUS (IV); COMPARISON: CT abdomen pelvis w con* [id number] 03/31/2019 1:11 PM RADIATION DOSE METRICS: Total DLP (mGy-cm): 1993.38 FINDINGS: Liver: Small liver, nodular contour consistent with cirrhosis. No mass. Gallbladder and bile ducts: Unremarkable. No ductal dilation. Pancreas: Normal. No ductal dilation. Spleen: Minimal splenomegaly. Adrenals: Normal. No mass. Kidneys and ureters: No calculus or hydronephrosis. No solid mass. Stomach and bowel: No acute findings. No obstruction. No mucosal thickening. Appendix: Appendectomy. Intraperitoneal space: Moderate to large ascites, no pneumoperitoneum. Vasculature: No abdominal aortic aneurysm, varices. 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 Patent portal vein. Lymph nodes: No significant adenopathy. Urinary bladder: Unremarkable as visualized. Reproductive: Unremarkable as visualized. Bones/joints: No acute findings. Soft tissues: Unremarkable. CT/CT abdomen pelvis w con* [id number] IMPRESSION: Cirrhosis, ascites. Partial mesenteric vein thrombosis. Radiation Dose CTDIVOL = (mGy): DLP = 1993.38 (mGy-cm)
--- NOTE | 2020-04-10 09:58 | ED_ITS ---
HPI - General Adult General: Chief complaint: General Medical Stated complaint: abd distention, abd pain, mild SOB Time Seen by Provider: 04/10/20 09:52 History of Present Illness: HPI narrative: Patient presents with worsening abdominal distention has history of cirrhosis leaking esophageal varices. Received total of 5 units of PRBCs in the last month. Does have intermittent black tarry stool. Feels weak now. Has recently placed on water pill and weigh t is staying the same but abdominal girth is enlarging is 1 from 50 inches up to 53 inches now per his complaint: Ascites and cirrhosis Onset (ago): week(s) Associated symptoms: Reports weakness; Deny chest pain, dyspnea, headache(s), nausea, rash or vomiting Review of Systems Const: Denies: fever(s), chills or body aches Eyes: Denies: change in vision or blurry vision ENMT: Denies: throat pain or nasal congestion Card: Denies: chest pain or dyspnea on exertion Resp: Denies: dyspnea, productive cough or non-productive cough GI: Reports: bloating and melena; Denies: abdominal pain (Abdominal discomfort increasing girth), nausea or vomiting : Denies: difficulty urinating Musc: Denies: extremity pain Skin/Breast: Denies: rash Neuro: Denies: headache(s) Psych: Denies: anxiety or depression Ravi/Lymph: Denies: easy bruising PFSH ED PFSH: Medical History (Updated 04/10/20 @ 12:24 by ASHLEY Lu) Acute hyponatremia -improved with hydration, on salt tablets -suspect some degree of this will persist chronically CKD (chronic kidney disease) stage 2, GFR 60-89 ml/min -baseline Cr wnl -current renal function at baseline GERD (gastroesophageal reflux disease) Hepatic encephalopathy -noted ammonia-69; mentation at baseline -on lactulose History of cirrhosis of liver -has been following up at [facility] in [place], less frequently lately due to coronavirus pandemic -normal LFTs History of diabetes mellitus -resume oral meds Hypertension -VSS -discontinue ARB, continue Aldactone; due to low normal BP and risk of hypotension Hypothyroidism -TSH wnl -continue levothyroxine Obstructive sleep apnea -CPAP qhs Surgical History (Updated 03/14/20 @ 09:11 by Parag Slater MD) H/O esophagogastroduodenoscopy (03/08/20) History of appendectomy History of arthroscopic knee surgery History of surgery on upper extremity History of vasectomy Family History Other Diabetes Social History (Updated 04/10/20 @ 09:35 by Josesito Smith RN) Smoking and tobacco status: former smoker Quit status (tobacco): has quit using tobacco Alcohol intake: former Substance/Drug Use: never Physical Exam Const: COMMON NORMALS: no acute distress, average body habitus and patient oriented x3 HENMT: COMMON NORMALS: normocephalic HEAD & SCALP: normal to inspection and normocephalic FACE & SINUS: normal facial exam Eye: COMMON NORMALS: conjunctivae normal GENERAL EYE: appearance normal, both eyes and all related structures CONJUNCTIVA: Yes conjunctivae normal Neck/C-Spine: COMMON NORMALS: no JVD Chest: COMMONS NORMALS: normal inspection of the chest Resp: COMMON NORMALS: normal respiratory effort and clear to auscultation bilaterally AUSCULTATION: clear to auscultation bilaterally Cardio: COMMON NORMALS: no JVD, regular rate and regular rhythm RATE: regular rate RHYTHM: regular rhythm GI: INSPECTION: Yes abdominal distension AUSCULTATION: Yes normoactive bowel sounds PALPATION: Yes Firmness to palpation present (GI) PERCUSSION: dullness to percussion Extremity: COMMON NORMALS: normal to inspection and full ROM Neuro: COMMON NORMALS: patient oriented x3 Course Vital Signs: Vital signs: Vital Signs Temperature 97.7 F 04/10/20 09:30 Pulse Rate 94 04/10/20 11:25 Respiratory Rate 17 04/10/20 12:06 Blood Pressure 116/67 04/10/20 12:06 Pulse Oximetry 96 04/10/20 12:06 MDM - General Adult MDM Narrative: Medical decision making narrative: Discussed case with Dr. Thompson and with Dr. Boo the radiologist. 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 Discussed patient about ascites and when his time need for tap patient will talk to garment parts cutter machine on April 18 and Ladan about reassessing ascites Lab Data: Labs: Lab Results 04/10/20 04/10/20 04/10/20 Range/Units 10:10 10:10 10:10 WBC 4.6 (4.0-10.0) 10^3/ uL RBC 3.74 L (4.1-5.3) 10^6/u L Hgb 9.2 L (11.7-16.6) g/dL Hct 32.0 L (42.0-52.0) % MCV 85.6 (80-94) fL MCH 24.6 L (28.0-34.0) pg MCHC 28.8 L (30.0-36.0) g/dL RDW 17.0 H (12.1-15.1) % Plt Count 170 (130-400) 10^3/c mm MPV 9.6 (7.4-10.4) fL Neut % (Auto) 55.7 % Lymph % (Auto) 20.2 % [place] % (Auto) 18.5 % Eos % (Auto) 3.7 % Baso % (Auto) 1.5 % Neut # (Auto) 2.53 (1.8-7.7) 10^3/u L Lymph # (Auto) 0.9 (0.8-4.8) 10^3/u L [place] # (Auto) 0.8 (0.2-0.9) 10^3/u L Eos # (Auto) 0.2 (0.0-0.8) 10^3/u L Baso # (Auto) 0.1 (0.0-0.1) 10^3/u L Nucleated RBC % (a uto) 0 % Nucleated RBCs # 0.0 /100WBC PT 15.90 H (12.1-14.9) SECO NDS INR 1.22 H (0.8-1.2) Sodium 135 L (136-145) mmol/L Potassium 4.5 (3.5-5.1) mmol/L Chloride 103 (98-107) mmol/L Carbon Dioxide 20 L (22-29) mmol/L Anion Gap 16.5 (5-19) BUN 14 (8-23) mg/dL Creatinine 1.0 (0.7-1.2) mg/dL GFR Calculation 75.2 L (90-130) mL/min Glucose 149 H (65-115) mg/dL Calculated Osmolal ity 283 L (285-295) mOsm/k g Calcium 8.7 (8.5-10.5) mg/dL Total Bilirubin 1.4 H (0.15-1.2) mg/dL AST 41 H (0-40) U/L ALT 27 (0-41) U/L Alkaline Phosphata se 78 (40-130) IU/L Total Protein 6.7 (6.6-8.7) g/dL Albumin 3.5 (3.5-5.2) g/dL Globulin 3.2 (1.3-4.6) g/dL Urine Color (Yellow) Urine Appearance (CLEAR) Urine pH (5-7) Ur Specific Gravit y (1.005-1.030) Urine Protein (Negative) Urine Glucose (UA) (Normal) Urine Ketones (Negative) Urine Blood (Negative) Urine Nitrate (Negative) Urine Bilirubin (Negative) Urine Urobilinogen (Negative) mg/dL Ur Leukocyte Denia ase (Negative) 04/10/20 Range/Units 10:15 WBC (4.0-10.0) 10^3/ uL RBC (4.1-5.3) 10^6/u L Hgb (11.7-16.6) g/dL Hct (42.0-52.0) % MCV (80-94) fL MCH (28.0-34.0) pg MCHC (30.0-36.0) g/dL RDW (12.1-15.1) % Plt Count (130-400) 10^3/c mm MPV (7.4-10.4) fL Neut % (Auto) % Lymph % (Auto) % [place] % (Auto) % Eos % (Auto) % Baso % (Auto) % Neut # (Auto) (1.8-7.7) 10^3/u L Lymph # (Auto) (0.8-4.8) 10^3/u L [place] # (Auto) (0.2-0.9) 10^3/u L Eos # (Auto) (0.0-0.8) 10^3/u L Baso # (Auto) (0.0-0.1) 10^3/u L Nucleated RBC % (a uto) % Nucleated RBCs # /100WBC PT (12.1-14.9) SECO NDS INR (0.8-1.2) Sodium (136-145) mmol/L Potassium (3.5-5.1) mmol/L Chloride (98-107) mmol/L Carbon Dioxide (22-29) mmol/L Anion Gap (5-19) BUN (8-23) mg/dL Creatinine (0.7-1.2) mg/dL GFR Calculation (90-130) mL/min Glucose (65-115) mg/dL Calculated Osmolal ity (285-295) mOsm/k g Calcium (8.5-10.5) mg/dL Total Bilirubin (0.15-1.2) mg/dL AST (0-40) U/L ALT (0-41) U/L Alkaline Phosphata se (40-130) IU/L Total Protein (6.6-8.7) g/dL Albumin (3.5-5.2) g/dL Globulin (1.3-4.6) g/dL Urine Color Yellow (Yellow) Urine Appearance Clear (CLEAR) Urine pH 5 (5-7) Ur Specific Gravit y 1.020 (1.005-1.030) Urine Protein Neg (Negative) Urine Glucose (UA) 4+ H (Normal) Urine Ketones 1+ H (Negative) Urine Blood Neg (Negative) Urine Nitrate Negative (Negative) Urine Bilirubin Neg (Negative) Urine Urobilinogen 1 H (Negative) mg/dL Ur Leukocyte Denia ase Negative (Negative) Discharge Plan Discharge Patient Disposition: Home Clinical Impression: Ascites Qualifiers: Ascites type: other type Qualified Code(s): R18.8 - Other ascites Esophageal varices Qualifiers: Esophageal varices type: secondary Esophageal varices bleeding: with bleeding Qualified Code(s): I85.11 - Secondary esophageal varices with bleeding Cirrhosis Qualifiers: Hepatic cirrhosis type: unspecified hepatic cirrhosis Ascites presence: with ascites Qualified Code(s): K74.60 - Unspecified cirrhosis of liver Condition: Stable Prescriptions: New Lasix 20 mg tablet 60 mg PO DAILY Qty: 20 RF: 0 No Action omeprazole 20 mg tablet,delayed release (DR/EC) 40 mg PO BID Qty: 180 RF: 3 acetaminophen [Tylenol Extra Strength] 500 mg Tablet 1,000 mg PO Q6H PRN (Reason: Pain) RF: 0 levothyroxine 25 mcg tablet 25 mcg PO DAILY RF: 0 ferrous sulfate [iron] 325 mg (65 mg iron) Tablet 325 mg PO BID RF: 0 betamethasone dipropionate 0.05 % ointment 1 applic TOPICAL PRN RF: 0 spironolactone 50 mg tablet 50 mg PO DAILY RF: 0 Xifaxan 550 mg tablet 550 mg PO BID RF: 0 Xigduo XR 10-1,000 mg tablet, IR - ER, biphasic 24hr 1 tab PO DAILY RF: 0 Ozempic 0.25 mg or 0.5 mg(2 mg/1.5 mL) pen injector See Rx Instructions .ROUTE .COMPLEX RF: 0 cyclobenzaprine 10 mg Tablet 10 mg PO TID PRN (Reason: Muscle Pain) RF: 0 Carafate 1 gram Tablet 1 g PO TID RF: 0 Lasix 20 mg Tablet 20 mg PO DAILY RF: 0 lactulose 10 gram/15 mL solution 30 ml PO BID RF: 0 Discharge Orders: Discharge Order (Routine); Ordered 04/10/20 Ordered By: Kt Caro Referrals: Floresita Bustillo DO [Primary Care Provider] - Discharge Diet: Usual diet Discharge Activity: Increase activity as tolerated Patient Instructions: Cirrhosis (ED), Ascites (ED) Activity Restrictions/Additional Instructions: Follow-up with medical provider as directed. Take medications as prescribed. Return to the ER or your medical provider if condition worsens. Please read and understand discharge instructions. If any questions ask please. Increase Lasix to 60 mg every morning, appointment with garment parts cutter machine in [place] next week if worsening symptoms return here Coding Level of Care Code ED Commercial Finance Manager for Yehuda Fwd Exam Comprehensive
[2020-04-10 10:03] VITALS: BP 123/73; PULSE 97; RESP 18; O2SAT 97
[2020-04-10 10:25] LABS: Add Urine Microscopic? NO
[2020-04-10 10:28] LABS: Basophils # 0.1 10^3/uL (0.0-0.1); Basophils % 1.5 %; Eosinophils # 0.2 10^3/uL (0.0-0.8); Eosinophils % 3.7 %; Hemoglobin 9.2 g/dL (11.7-16.6); Lymphocytes # 0.9 10^3/uL (0.8-4.8); Lymphocytes % 20.2 %; Mean Corpuscular HGB Conc 28.8 g/dL (30.0-36.0); Mean Corpuscular Hemoglobin 24.6 pg (28.0-34.0); Mean Corpuscular Volume 85.6 fL (80-94); Mean Platelet Volume 9.6 fL (7.4-10.4); Monocytes # 0.8 10^3/uL (0.2-0.9); Monocytes % 18.5 %; Neutrophils # 2.53 10^3/uL (1.8-7.7); Neutrophils % 55.7 %; Nucleated Red Blood Cells % 0 %; Platelet Count 170 10^3/cmm (130-400); Red Blood Count 3.74 10^6/uL (4.1-5.3); White Blood Count 4.6 10^3/uL (4.0-10.0)
[2020-04-10 10:41] LABS: INR 1.22 (0.8-1.2)
[2020-04-10 10:51] LABS: Bilirubin Urine Neg (Negative); Blood Urine Neg (Negative); Glucose Urine UA 4+ (Normal); Ketones Urine 1+ (Negative); Leukocyte Esterase Urine Negative (Negative); Nitrate Urine Negative (Negative); Protein Urine Neg (Negative); Urine Appearance Clear (CLEAR); Urine Color Yellow (Yellow); Urobilinogen Urine 1 mg/dL (Negative); pH Urine 5 (5-7)
[2020-04-10 11:02] LABS: Alanine Aminotransferase 27 U/L (0-41); Albumin Level 3.5 g/dL (3.5-5.2); Alkaline Phosphatase 78 IU/L (40-130); Anion Gap 16.5 (5-19); Aspartate Amino Transferase 41 U/L (0-40); Blood Urea Nitrogen 14 mg/dL (8-23); Calcium 8.7 mg/dL (8.5-10.5); Carbon Dioxide 20 mmol/L (22-29); Chloride 103 mmol/L (98-107); Globulin 3.2 g/dL (1.3-4.6); Glomerular Filtration Rate 75.2 mL/min (90-130); Glucose 149 mg/dL (65-115); Osmolality Calculated 283 mOsm/kg (285-295); Potassium 4.5 mmol/L (3.5-5.1); Sodium 135 mmol/L (136-145); Total Bilirubin 1.4 mg/dL (0.15-1.2); Total Protein 6.7 g/dL (6.6-8.7)
[2020-04-10 11:25] VITALS: BP 108/58; PULSE 94; RESP 20; O2SAT 95
[2020-04-10] MEDS: iohexol 300 mg/mL 100 mL Btl IV (11:29)
[2020-04-10 12:06] VITALS: BP 116/67; RESP 17; O2SAT 96
[2020-04-10 12:43] VITALS: BP 105/58; RESP 18
== END 2020-04-10 12:44 | disposition home or self-care (01) ==
PROVIDERS: Emergency Provider Nurse Practitioner Family; PCP Family Medicine
DX: K74.60 Unspecified cirrhosis of liver (principal); I85.11 Secondary esophageal varices with bleeding; R18.8 Other ascites; I12.9 Hypertensive chronic kidney disease with stage 1 through stage 4 chronic kidney disease, or unspecified chronic kidney disease; E11.22 Type 2 diabetes mellitus with diabetic chronic kidney disease; N18.2 Chronic kidney disease, stage 2 (mild); Z87.891 Personal history of nicotine dependence
CPT/HCPCS: 12345; 74177; 80053; 81003; 85025; 85610; 99283; Q9967

== ENCOUNTER → 2020-05-05 10:15 | Day surgery (SDC) | payer BC, SELFPAY ==
[2020-05-05] VITALS (11 sets, daily range): BP systolic 96–122; BP diastolic 59–83; PULSE 88–101; RESP 18; TEMP 36.1–37.6; O2SAT 96–100; BMI 29.5
[2020-05-05 11:04] LABS: Hematocrit 26.2 % (42.0-52.0); Hemoglobin 7.6 g/dL (11.7-16.6)
[2020-05-05] MEDS: FUROsemide 10 mg/mL SDV 2mL 20 MG IVP (14:05)
== END ==
PROVIDERS: PCP Family Medicine; Visit Provider Surgery
DX: K92.2 Gastrointestinal hemorrhage, unspecified (principal); D64.9 Anemia, unspecified; I85.00 Esophageal varices without bleeding
CPT/HCPCS: 36415; 36430; 85014; 85018; 86850; 86900; 86920; 96374; J1940; P9016

== ENCOUNTER → 2020-06-22 11:30 | Day surgery (SDC) | payer BC, SELFPAY ==
[2020-06-22] VITALS (10 sets, daily range): BP systolic 95–120; BP diastolic 56–78; PULSE 78–107; RESP 18; TEMP 36.2–37.2; O2SAT 98–99
[2020-06-22 12:31] LABS: Hematocrit 23.3 % (42.0-52.0)
[2020-06-22] MEDS: acetaminophen 500 mg Tablet 1000 MG PO (12:45)
[2020-06-22] MEDS: diphenhydrAMINE 25 mg Capsule PO (12:46)
== END ==
PROVIDERS: PCP Family Medicine; Visit Provider Surgery
DX: K92.2 Gastrointestinal hemorrhage, unspecified (principal); D64.9 Anemia, unspecified; I85.00 Esophageal varices without bleeding
CPT/HCPCS: 36430; 85014; 85018; 86850; 86900; 86920; P9016

== ENCOUNTER → 2020-07-21 07:18 | Day surgery (SDC) | payer BC, SELFPAY ==
[2020-07-21] VITALS (11 sets, daily range): BP systolic 95–124; BP diastolic 60–86; PULSE 85–101; RESP 18–22; TEMP 36.2–36.8; O2SAT 97–100; BMI 29.5
== END ==
PROVIDERS: PCP Family Medicine; Visit Provider Surgery
DX: K92.2 Gastrointestinal hemorrhage, unspecified (principal); D64.9 Anemia, unspecified; I85.00 Esophageal varices without bleeding
CPT/HCPCS: 36415; 36430; 86850; 86900; 86920; P9016

== ENCOUNTER 2020-07-30 15:24 | Observation (INO) | payer BC, SELFPAY ==
[2020-07-30 15:31] VITALS: BP 112/73; PULSE 98; RESP 18; TEMP 36.6; O2SAT 97; BMI 29.0
[2020-07-30] MEDS: sodium chloride 0.9% 1,000 ML 999 ML IV (16:06)
--- NOTE | 2020-07-30 16:16 | W.ED.AMS ---
HPI - Altered Mental Status General: Chief Complaint: Altered Mental Status Stated Complaint: SOB, TREMORS Time Seen by Provider: 07/30/20 15:50 History of Present Illness: HPI narrative: 65-year-old male with a history of cirrhosis of the liver. His is with him today she has been gone for a few days but doubly certain that he is not been taking his medications regularly particularly his lactulose. He has had problems with altered mental status related to elevated ammonia levels in the past. He did take his lactulose last night but prior to that she does not think he has been taking it regularly. He is confused and disoriented unable to answer questions appropriately. He seemed to be normal yesterday. He has no focal neurologic symptoms no lateralizing symptoms he denies any chest pain or shortness of breath. Patient has a history of nonalcoholic steatohepatitis MD complaint: altered mental status and confusion Onset (ago): hour(s) Timing confirmed by: spouse Severity: moderate Consistency of symptoms: Getting Worse Context: history of similar presentation and other (SORENSEN) Associated symptoms: Reports no associated symptoms Review of Systems Const: Denies: fever(s), chills, body aches, change in appetite, fatigue or malaise ENMT: Denies: throat pain, ear or mastoid pain, nasal discharge or nasal congestion Card: Denies: chest pain, edema, dyspnea on exertion or orthopnea Resp: Denies: dyspnea, productive cough or non-productive cough GI: Denies: abdominal pain, nausea, vomiting, hematemesis, coffee ground emesis, diarrhea, constipation, bloating, hematochezia or melena : Denies: flank pain, dysuria, urinary frequency or urinary urgency Skin/Breast: Denies: rash or pruritus PFSH ED PFSH: Medical History Acute hyponatremia -improved with hydration, on salt tablets -suspect some degree of this will persist chronically CKD (chronic kidney disease) stage 2, GFR 60-89 ml/min -baseline Cr wnl -current renal function at baseline GERD (gastroesophageal reflux disease) Hepatic encephalopathy -noted ammonia-69; mentation at baseline -on lactulose History of cirrhosis of liver -has been following up at [facility] in [place], less frequently lately due to coronavirus pandemic -normal LFTs History of diabetes mellitus -resume oral meds Hypertension -VSS -discontinue ARB, continue Aldactone; due to low normal BP and risk of hypotension Hypothyroidism -TSH wnl -continue levothyroxine Obstructive sleep apnea -CPAP qhs Surgical History H/O esophagogastroduodenoscopy (03/08/20) History of appendectomy History of arthroscopic knee surgery History of surgery on upper extremity History of vasectomy Family History Other Diabetes Social History Smoking and tobacco status: former smoker Quit status (tobacco): has quit using tobacco Alcohol intake: former Physical Exam Const: COMMON NORMALS: no acute distress GENERAL APPEARANCE: cooperative and comfortable ORIENTATION/CONSCIOUSNESS: Yes awake HENMT: COMMON NORMALS: normocephalic, atraumatic and hearing grossly normal bilaterally HEAD & SCALP: normocephalic and atraumatic Neck/C-Spine: COMMON NORMALS: no JVD Resp: COMMON NORMALS: normal respiratory effort, No retractions, No use of accessory muscles and clear to auscultation bilaterally AUSCULTATION: clear to auscultation bilaterally Cardio: COMMON NORMALS: no JVD, regular rate, regular rhythm and No murmurs present (Cardio) RATE: regular rate RHYTHM: regular rhythm GI: COMMON NORMALS: Soft to palpation and No hepatosplenomegaly present AUSCULTATION: Yes normoactive bowel sounds PALPATION: Yes Soft to palpation, No Tenderness to palpation present (GI), No Guarding due to palpation present (GI) and Yes No hepatosplenomegaly present Extremity: COMMON NORMALS: normal to inspection, capillary refill normal, no clubbing, cyanosis or edema, no calf tenderness and no pedal edema Skin: COMMON NORMALS: no rashes or lesions noted GENERAL SKIN EXAM: no rashes or lesions noted Course Vital Signs: Vital signs: Vital Signs Temperature 97.8 F 07/30/20 15:31 Pulse Rate 93 07/30/20 17:17 Respiratory Rate 23 H 07/30/20 17:17 Blood Pressure 124/72 07/30/20 17:17 Pulse Oximetry 97 01/16/21 17:17 MDM - Altered Mental Status MDM Narrative: Medical decision making narrative: Ammonia level markedly elevated. He has a leukocytopenia he chronically does have that but it is a little bit lower than normal. He also has mild hyponatremia which is actually above his baseline. He is anemic but it also is above his usual baseline reviewing his old labs. Discussed with the patient and his also discussed with hospitalist will admit for the elevated ammonia level Lab Data: Labs: Lab Results 07/30/20 07/30/20 07/30/20 Range/Units 16:15 16:15 16:15 WBC 2.9 L (4.0-10.0) 10^3/ uL RBC 3.39 L (4.1-5.3) 10^6/u L Hgb 8.1 L (11.7-16.6) g/dL Hct 27.6 L (42.0-52.0) % MCV 81.4 (80-94) fL MCH 23.9 L (28.0-34.0) pg MCHC 29.3 L (30.0-36.0) g/dL RDW 22.3 H (12.1-15.1) % Plt Count 169 (130-400) 10^3/c mm MPV 9.1 (7.4-10.4) fL Neut % (Auto) 52.7 % Lymph % (Auto) 26.4 % [place] % (Auto) 15.8 % Eos % (Auto) 3.4 % Baso % (Auto) 1.7 % Neut # (Auto) 1.54 L (1.8-7.7) 10^3/u L Lymph # (Auto) 0.8 (0.8-4.8) 10^3/u L [place] # (Auto) 0.5 (0.2-0.9) 10^3/u L Eos # (Auto) 0.1 (0.0-0.8) 10^3/u L Baso # (Auto) 0.1 (0.0-0.1) 10^3/u L Nucleated RBC % (a uto) 0 % Nucleated RBCs # 0.0 /100WBC Sodium 132 L (136-145) mmol/L Potassium 4.1 (3.5-5.1) mmol/L Chloride 100 (98-107) mmol/L Carbon Dioxide 22 (22-29) mmol/L Anion Gap 14.1 (5-19) BUN 15 (8-23) mg/dL Creatinine 0.7 (0.7-1.2) mg/dL GFR Calculation 113.5 (90-130) mL/min Glucose 151 H (65-115) mg/dL Calculated Osmolal ity 278 L (285-295) mOsm/k g Calcium 8.8 (8.5-10.5) mg/dL Magnesium 2.2 (1.7-2.3) mg/dL Total Bilirubin 1.3 H (0.15-1.2) mg/dL AST 30 (0-40) U/L ALT 13 (0-41) U/L Alkaline Phosphata se 87 (40-130) IU/L Ammonia 157 H (16-60) umol/L Creatine Kinase 40 (39-308) U/L Total Protein 6.9 (6.6-8.7) g/dL Albumin 3.1 L (3.5-5.2) g/dL Globulin 3.8 (1.3-4.6) g/dL Discharge Plan Discharge Patient Disposition: Admitted As Inpatient Clinical Impression: Acute hepatic encephalopathy, Anemia, 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, Chronic hyponatremia Condition: Stable Prescriptions: No Action acetaminophen [Tylenol Extra Strength] 500 mg Tablet 1,000 mg PO Q6H PRN (Reason: Pain) RF: 0 levothyroxine 25 mcg tablet 25 mcg PO DAILY@0800 RF: 0 ferrous sulfate [iron] 325 mg (65 mg iron) Tablet 325 mg PO BID@ RF: 0 betamethasone dipropionate 0.05 % ointment 1 applic TOPICAL PRN RF: 0 spironolactone 50 mg tablet 50 mg PO DAILY@0800 RF: 0 Xifaxan 550 mg tablet 550 mg PO BID@799,1999 RF: 0 Xigduo XR 10-1,000 mg tablet, IR - ER, biphasic 24hr 1 tab PO DAILY@0800 RF: 0 Ozempic 0.25 mg or 0.5 mg(2 mg/1.5 mL) pen injector See Rx Instructions .ROUTE .COMPLEX RF: 0 cyclobenzaprine 10 mg Tablet 10 mg PO TID PRN (Reason: Muscle Pain) RF: 0 sucralfate [Carafate] 1 gram Tablet 1 g PO TID@0800,1200,1999 RF: 0 furosemide [Lasix] 20 mg Tablet 20 mg PO DAILY@0800 RF: 0 One A Day Tablet 1 tab PO DAILY@0800 RF: 0 telmisartan 80 mg tablet 80 mg PO DAILY@0800 RF: 0 Airborne Gummy 250-11.66 mg Tablet,Chewable 1 tab PO DAILY@0800 RF: 0 omeprazole 20 mg tablet,delayed release (DR/EC) 40 mg PO BID@799,1999 RF: 0 lactulose 10 gram/15 mL solution 30 ml PO BID@00,1999 RF: 0 Referrals: Floresita Bustillo DO [Primary Care Provider] - Coding Level of Care Code ED Cold Meat Cook for Chg Fwd Exam Comprehensive
[2020-07-30 16:32] LABS: Basophils # 0.1 10^3/uL (0.0-0.1); Basophils % 1.7 %; Eosinophils # 0.1 10^3/uL (0.0-0.8); Eosinophils % 3.4 %; Hematocrit 27.6 % (42.0-52.0); Hemoglobin 8.1 g/dL (11.7-16.6); Lymphocytes # 0.8 10^3/uL (0.8-4.8); Lymphocytes % 26.4 %; Mean Corpuscular HGB Conc 29.3 g/dL (30.0-36.0); Mean Corpuscular Hemoglobin 23.9 pg (28.0-34.0); Mean Corpuscular Volume 81.4 fL (80-94); Mean Platelet Volume 9.1 fL (7.4-10.4); Monocytes # 0.5 10^3/uL (0.2-0.9); Monocytes % 15.8 %; Neutrophils # 1.54 10^3/uL (1.8-7.7); Neutrophils % 52.7 %; Nucleated Red Blood Cells % 0 %; Platelet Count 169 10^3/cmm (130-400); Red Blood Count 3.39 10^6/uL (4.1-5.3); Red Cell Distribution Width 22.3 % (12.1-15.1); White Blood Count 2.9 10^3/uL (4.0-10.0)
[2020-07-30 16:52] LABS: Ammonia 157 umol/L (16-60)
[2020-07-30 16:53] LABS: Alanine Aminotransferase 13 U/L (0-41); Albumin Level 3.1 g/dL (3.5-5.2); Alkaline Phosphatase 87 IU/L (40-130); Aspartate Amino Transferase 30 U/L (0-40); Blood Urea Nitrogen 15 mg/dL (8-23); Calcium 8.8 mg/dL (8.5-10.5); Carbon Dioxide 22 mmol/L (22-29); Chloride 100 mmol/L (98-107); Creatine Phosphokinase 40 U/L (39-308); Globulin 3.8 g/dL (1.3-4.6); Glomerular Filtration Rate 113.5 mL/min (90-130); Glucose 151 mg/dL (65-115); Magnesium 2.2 mg/dL (1.7-2.3); Osmolality Calculated 278 mOsm/kg (285-295); Sodium 132 mmol/L (136-145); Total Bilirubin 1.3 mg/dL (0.15-1.2); Total Protein 6.9 g/dL (6.6-8.7)
[2020-07-30 17:10] LABS: Anion Gap 14.1 (5-19); Potassium 4.1 mmol/L (3.5-5.1)
[2020-07-30 17:17] VITALS: BP 124/72; PULSE 93; RESP 23; O2SAT 97
--- NOTE | 2020-07-30 17:36 | P.HP_ITS ---
Providers/Chief Complaint Admitting Physician: Latrice Randhawa Primary Care Provider: Floresita Bustillo DO Chief Complaint: SOB, TREMORS History of Present Illness 66 year old with past medical history forChronic kidney disease stage 2, gastroesophageal reflux disease, diabetes mellitus, hypertension, hypothyroidism, obstructive sleep apnea on CPAP and alcoholic liver cirrhosis complicated with esophageal varices, anemia requiring transfusions, hepatic encephalopathy on lactulose was presented to the hospital with altered mental status. Patient was confused at the time of my evaluation and poor historian. Apparently patient's weight has stated that he was not compliant with his lactulose. Laboratory workup on arrival showed a WBC of 2.9, hemoglobin of 8.1, hematocrit 27.6 and a platelet count of 169. sodium 132, potassium 4.1, chloride 100, bicarb 22, BUN 15 and creatinine of 0.7. Ammonia level was elevated 157. emergency room patient was given lactulose 30 mg x1. Review of Systems General: Reports: ROS unobtainable due to medical condition Medications/Allergies Home Medications Medication Instructions Recorded Confirmed Last Taken Type Ozempic See Rx Instructions .ROUTE .COMPLEX 02/16/20 07/30/20 07/26/20 History Xifaxan 550 mg PO BID@0800,199902/16/20 07/30/20 07/29/20 History Xigduo XR 1 tab PO DAILY@0800 02/16/20 07/30/20 07/29/20 History acetaminophen [Tylenol Extra 1,000 mg PO Q6H PRN 02/16/20 07/30/20 07/20/20 History Strength] betamethasone dipropionate 1 applic TOPICAL PRN 02/16/20 07/30/20 07/20/20 History ferrous sulfate [iron] 325 mg PO BID@0800,199902/16/20 07/30/20 07/29/20 History levothyroxine 25 mcg PO DAILY@00 02/16/20 07/30/20 07/29/20 History spironolactone 50 mg PO DAILY@0800 02/16/20 07/30/20 07/29/20 History lactulose 30 ml PO BID@0800,199903/07/20 07/30/20 07/29/20 History cyclobenzaprine 10 mg PO TID PRN 04/10/20 07/30/20 07/20/20 History furosemide [Lasix] 20 mg PO DAILY@0800 04/10/20 07/30/20 07/29/20 History sucralfate [Carafate] 1 g PO TID@0800,1199,199904/10/20 07/30/20 07/29/20 History [id number]-rwn C-herb no.124 1 tab PO DAILY@0800 07/30/20 07/30/20 07/29/20 History [Airborne Gummy] multivitamin [One A Day] 1 tab PO DAILY@0800 07/30/20 07/30/20 07/29/20 History omeprazole 40 mg PO BID@0800,199907/30/20 07/30/20 07/29/20 History telmisartan 80 mg PO DAILY@0800 07/30/20 07/30/20 07/29/20 History Allergies Allergy/AdvReac Type Severity Reaction Status Date / Time Sulfa (Sulfonamide Allergy ALGY-Rash Verified 07/21/20 08:05 Antibiotics) PFSH Acute PFSH: Medical History Acute hyponatremia -improved with hydration, on salt tablets -suspect some degree of this will persist chronically CKD (chronic kidney disease) stage 2, GFR 60-89 ml/min -baseline Cr wnl -current renal function at baseline GERD (gastroesophageal reflux disease) Hepatic encephalopathy -noted ammonia-69; mentation at baseline -on lactulose History of cirrhosis of liver -has been following up at [facility] in [place], less frequently lately due to coronavirus pandemic -normal LFTs History of diabetes mellitus -resume oral meds Hypertension -VSS -discontinue ARB, continue Aldactone; due to low normal BP and risk of hypotension Hypothyroidism -TSH wnl -continue levothyroxine Obstructive sleep apnea -CPAP qhs Surgical History H/O esophagogastroduodenoscopy (03/08/20) History of appendectomy History of arthroscopic knee surgery History of surgery on upper extremity History of vasectomy Family History Other Diabetes Social History Smoking and tobacco status: former smoker Quit status (tobacco): has quit using tobacco Alcohol intake: former Vitals/I&O/Wt Last Vital Signs Temp 97.8 F 07/30/20 15:31 Pulse 93 07/30/20 17:17 Resp 23 H 07/30/20 17:17 BP 124/72 07/30/20 17:17 Pulse Ox 97 07/30/20 17:17 07/30/20 07/30/20 07/30/20 06:59 14:59 22:59 Intake Total 1000 / 1000 Balance 1000 / 1000 Weight last 48 hrs Weight 102.512 kg Physical Exam Const: COMMON NORMALS: no acute distress HENMT: COMMON NORMALS: normocephalic and atraumatic HEAD & SCALP: normal to inspection FACE & SINUS: normal facial exam NOSE: Normal external nose present MOUTH: Normal oral and palatal mucosa present Chest: COMMONS NORMALS: normal inspection of the chest CHEST: Yes Symmetrical chest wall rise Resp: COMMON NORMALS: normal respiratory effort, No retractions, No use of accessory muscles and clear to auscultation bilaterally Cardio: COMMON NORMALS: no JVD, regular rate, regular rhythm, S1 normal heart sound present and S2 normal heart sound present GI: INSPECTION: Yes Fluid wave present Neuro: COMMON NORMALS: moves all extremities and no focal motor deficits Psych: OTHER: Confused Data : 07/30/20 16:15 07/30/20 16:15 A&P Assessment and plan (1) Acute hepatic encephalopathy: Status: Acute (2) Chronic hyponatremia: Status: Acute (3) Anemia: Status: Acute Hepatic encephalopathy - Ammonia 157 - Lactulose 20 mg p.o. t.i.d. - Hold for over 2 to 3 bowel movements - Aspiration precautions Alcoholic cirrhosis - Leukopenia - Varicies - Anemia - Ascietes - CMP in am DM - Sliding scale insulin - ACHS checks Hypertension - Decrease losartan to 100mg PO daily - Will titrate meds as needed OSITO - Resume CPAP Qhs Hypothyroidism - Continue replacement GI ppx - PPI DVT ppx - SCDS only due to high risk of bleeding Attestations Medical Necessity Statement*: Anticipate less than 2 midnight stay in hospital for eval and treatment of hepatic encephalopathy Time Spent in Patient Care: Greater than 35 minutes (>than 50% of time spent in counselling and/or direct pt care on unit) . Coding Level of Care Code Acute Office Administration for Chg Fwd Diagnoses Acute hepatic encephalopathy K72.00 Chronic hyponatremia E87.1 Anemia D64.9
[2020-07-30] MEDS: lactulose oral liq 20 gm/30 mL UDC 30 GM PO (17:39)
[2020-07-30 17:40] VITALS: BP 124/72; PULSE 93; RESP 23; O2SAT 97
[2020-07-30 20:00] VITALS: BP 116/75; PULSE 91; RESP 20; TEMP 36.7; O2SAT 95
[2020-07-30] MEDS: sucralfate 1 gm Tablet PO (21:03)
[2020-07-30] MEDS: ferrous sulfate EC 325 mg Tablet PO (21:04)
[2020-07-30] MEDS: pantoprazole DR 40 mg Tablet PO (21:04)
[2020-07-30] MEDS: lactulose oral liq 20 gm/30 mL UDC PO (21:04)
[2020-07-30] MEDS: sodium chloride 0.9% 1,000 ML 100 ML IV (21:05)
[2020-07-30 21:08] LABS: Glucose Point of Care 209 mg/dL (70-110)
[2020-07-30 22:57] LABS: Add Urine Microscopic? NO
[2020-07-30 23:03] LABS: Bilirubin Urine Neg (Negative); Blood Urine Neg (Negative); Glucose Urine UA 1+ (Normal); Ketones Urine Negative (Negative); Leukocyte Esterase Urine Negative (Negative); Nitrate Urine Negative (Negative); Protein Urine Neg (Negative); Urine Appearance Clear (CLEAR); Urine Color Yellow (Yellow); Urobilinogen Urine 1 mg/dL (Negative); pH Urine 6.5 (5-7)
[2020-07-31] VITALS: BP 117/68; PULSE 94; RESP 18; TEMP 36.8; O2SAT 95
[2020-07-31 03:59] VITALS: BP 105/63; PULSE 95; RESP 20; TEMP 36.8; O2SAT 94
[2020-07-31 05:15] LABS: Basophils # 0.1 10^3/uL (0.0-0.1); Basophils % 1.9 %; Eosinophils # 0.1 10^3/uL (0.0-0.8); Hematocrit 23.3 % (42.0-52.0); Lymphocytes # 0.8 10^3/uL (0.8-4.8); Lymphocytes % 28.5 %; Mean Corpuscular Hemoglobin 24.4 pg (28.0-34.0); Mean Corpuscular Volume 81.2 fL (80-94); Mean Platelet Volume 8.9 fL (7.4-10.4); Monocytes # 0.5 10^3/uL (0.2-0.9); Monocytes % 20.5 %; Neutrophils # 1.21 10^3/uL (1.8-7.7); Neutrophils % 46.1 %; Nucleated Red Blood Cells % 0 %; Platelet Count 134 10^3/cmm (130-400); Red Blood Count 2.87 10^6/uL (4.1-5.3); Red Cell Distribution Width 22.1 % (12.1-15.1); White Blood Count 2.6 10^3/uL (4.0-10.0)
[2020-07-31 05:37] LABS: Ammonia 67 umol/L (16-60)
[2020-07-31 06:19] LABS: Alanine Aminotransferase 11 U/L (0-41); Albumin Level 2.5 g/dL (3.5-5.2); Alkaline Phosphatase 66 IU/L (40-130); Anion Gap 12.8 (5-19); Aspartate Amino Transferase 26 U/L (0-40); Blood Urea Nitrogen 11 mg/dL (8-23); Calcium 8.1 mg/dL (8.5-10.5); Carbon Dioxide 21 mmol/L (22-29); Chloride 107 mmol/L (98-107); Globulin 3.1 g/dL (1.3-4.6); Glomerular Filtration Rate 135.6 mL/min (90-130); Glucose 115 mg/dL (65-115); Osmolality Calculated 284 mOsm/kg (285-295); Potassium 3.8 mmol/L (3.5-5.1); Sodium 137 mmol/L (136-145); Total Bilirubin 1.4 mg/dL (0.15-1.2); Total Protein 5.6 g/dL (6.6-8.7)
[2020-07-31] MEDS: sucralfate 1 gm Tablet PO (06:39)
[2020-07-31 07:12] LABS: Glucose Point of Care 133 mg/dL (70-110)
[2020-07-31 07:59] VITALS: BP 120/67; PULSE 100; RESP 18; TEMP 37; O2SAT 95
[2020-07-31 09:38] VITALS: BP 120/67
[2020-07-31] MEDS: losartan 50 mg Tablet 100 MG PO (09:38)
[2020-07-31] MEDS: lactulose oral liq 20 gm/30 mL UDC PO (09:38)
[2020-07-31] MEDS: pantoprazole DR 40 mg Tablet PO (09:39)
[2020-07-31] MEDS: ferrous sulfate EC 325 mg Tablet PO (09:39)
[2020-07-31] MEDS: spironolactone 25 mg Tablet 50 MG PO (09:40)
[2020-07-31] MEDS: levothyroxine 25 mcg Tablet PO (09:40)
[2020-07-31 10:56] LABS: Glucose Point of Care 206 mg/dL (70-110)
[2020-07-31 11:31] LABS: Hematocrit 26.2 % (42.0-52.0); Hemoglobin 8.3 g/dL (11.7-16.6)
[2020-07-31 11:54] VITALS: BP 124/75; PULSE 103; RESP 18; TEMP 36.4; O2SAT 98
--- NOTE | 2020-07-31 12:58 | PC.NURSE ---
Patient discharged at this time with in stable condition. Discharge instructions given to patient, all questions answered. IV removed, tip intact.
[2020-07-31 13:26] VITALS: BP 124/75; PULSE 103; RESP 18; TEMP 36.4; O2SAT 98
--- NOTE | 2020-07-31 16:23 | P.DS_ITS ---
Discharge Providers Date of Admission: 07/30/20 18:46 Date of Discharge: August 01, 2020 Attending Provider at Admission: Latrice Randhawa Attending Provider at Discharge: Latrice Randhawa Primary Care Provider: Floresita Bustillo DO Diagnoses at Discharge Discharge Diagnosis (1) Acute hepatic encephalopathy: Status: Acute (2) Chronic hyponatremia: Status: Acute (3) Anemia: Status: Acute Reason for Visit Reason for Visit: SOB, TREMORS Hospital Course Hospital Course 66 year old with past medical history forChronic kidney disease stage 2, gastroesophageal reflux disease, diabetes mellitus, hypertension, hypothyroidism, obstructive sleep apnea on CPAP and alcoholic liver cirrhosis complicated with esophageal varices, anemia requiring transfusions, hepatic encephalopathy on lactulose was presented to the hospital with altered mental status. Patient was confused at the time of my evaluation and poor historian. Apparently patient's weight has stated that he was not compliant with his lactulose. Laboratory workup on arrival showed a WBC of 2.9, hemoglobin of 8.1, hematocrit 27.6 and a platelet count of 169. sodium 132, potassium 4.1, chloride 100, bicarb 22, BUN 15 and creatinine of 0.7. Ammonia level was elevated 157. emergency room patient was given lactulose 30 mg x1. He was continued on 20 mg t.i.d.. Repeat ammonia level had decreased significantly. Patient's mental status had returned to baseline. Patient was alert awake oriented and wanting to discharge home. Was advised to follow-up with primary care physician after discharge. Physical Exam Const: COMMON NORMALS: no acute distress HENMT: COMMON NORMALS: normocephalic, atraumatic and Normal external nose present HEAD & SCALP: normal to inspection, normocephalic and atraumatic FACE & SINUS: normal facial exam NOSE: Normal external nose present MOUTH: Normal oral and palatal mucosa present Neck/C-Spine: COMMON NORMALS: no JVD Chest: COMMONS NORMALS: normal inspection of the chest CHEST: Yes Symmetrical chest wall rise Resp: COMMON NORMALS: normal respiratory effort, No retractions, No use of accessory muscles and clear to auscultation bilaterally AUSCULTATION: clear to auscultation bilaterally Cardio: COMMON NORMALS: no JVD, regular rate, regular rhythm, S1 normal heart sound present and S2 normal heart sound present RATE: regular rate RHYTHM: regular rhythm HEART SOUNDS: S1 normal heart sound present and S2 normal heart sound present GI: INSPECTION: Yes Fluid wave present PERCUSSION: Fluid wave present Neuro: COMMON NORMALS: moves all extremities and no focal motor deficits Psych: OTHER: Confused Discharge Data Vitals: Last Vital Signs Temp 97.6 F 07/31/20 13:26 Pulse 103 H 07/31/20 13:26 Resp 18 07/31/20 13:26 BP 124/75 07/31/20 13:26 Pulse Ox 98 07/31/20 13:26 Discharge Plan Discharge Patient Disposition: Home Condition: Stable Prescriptions: Continued acetaminophen [Tylenol Extra Strength] 500 mg Tablet 1,000 mg PO Q6H PRN (Reason: Pain) RF: 0 levothyroxine 25 mcg tablet 25 mcg PO DAILY@0800 RF: 0 ferrous sulfate [iron] 325 mg (65 mg iron) Tablet 325 mg PO BID@799,1999 RF: 0 betamethasone dipropionate 0.05 % ointment 1 applic TOPICAL PRN RF: 0 spironolactone 50 mg tablet 50 mg PO DAILY@0800 RF: 0 Xifaxan 550 mg tablet 550 mg PO BID@799,1999 RF: 0 Xigduo XR 10-1,000 mg tablet, IR - ER, biphasic 24hr 1 tab PO DAILY@0800 RF: 0 Ozempic 0.25 mg or 0.5 mg(2 mg/1.5 mL) pen injector See Rx Instructions .ROUTE .COMPLEX RF: 0 cyclobenzaprine 10 mg Tablet 10 mg PO TID PRN (Reason: Muscle Pain) RF: 0 sucralfate [Carafate] 1 gram Tablet 1 g PO TID@0800,1199,1999 RF: 0 furosemide [Lasix] 20 mg Tablet 20 mg PO DAILY@0800 RF: 0 multivitamin Tablet 1 tab PO DAILY@0800 RF: 0 Airborne Gummy 250-11.66 mg Tablet,Chewable 1 tab PO DAILY@0800 RF: 0 omeprazole 20 mg tablet,delayed release (DR/EC) 40 mg PO BID@08,1999 RF: 0 lactulose 10 gram/15 mL solution 30 ml PO BID@799,1999 RF: 0 Discontinued telmisartan 80 mg tablet 80 mg PO DAILY@0800 RF: 0 Discharge Orders: Discharge Order (Routine); Ordered 07/31/20 Ordered By: Latrice Randhawa Referrals: Floresita Bustillo DO [Primary Care Provider] - (Folow up with Primary care Dr in 4 to 7 days. Call to set up the appointment) Discharge Diet: Usual diet Discharge Activity: Increase activity as tolerated Patient Instructions: Anemia, Lactulose (By mouth), Hepatic Encephalopathy (GEN) Activity Restrictions/Additional Instructions: Continue lactulose as prior, hold for over 2-3 bm stop taking telmisartan Discharge Attestations Time Spent in Discharge Care*: greater than 30 min Specific Discharge Activities: educating patient, discussing with pcp/other providers, discussing with clinical case manager/social workers/dc planners, documenting/other paperwork and evaluating patient/reviewing data Status at Discharge: Cognitive status at discharge: cognitively intact , Behavioral status at discharge: cooperative and independent in ADL's , Quality Metrics Clinical Quality Measures During this hospital stay, did patient experience: None Coding Level of Care Code 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
== END 2020-07-31 13:26 | disposition home or self-care (01) ==
LOC: ER 17:22 → MEDSURG 07-31 06:14
PROVIDERS: Admitting Provider Hospitalist; Emergency Provider Family Medicine; PCP Family Medicine; Visit Provider Hospitalist
DX: K72.00 Acute and subacute hepatic failure without coma (principal); E87.1 Hypo-osmolality and hyponatremia; E11.22 Type 2 diabetes mellitus with diabetic chronic kidney disease; I12.9 Hypertensive chronic kidney disease with stage 1 through stage 4 chronic kidney disease, or unspecified chronic kidney disease; N18.2 Chronic kidney disease, stage 2 (mild); D63.1 Anemia in chronic kidney disease; K70.31 Alcoholic cirrhosis of liver with ascites; Z79.4 Long term (current) use of insulin; K21.9 Gastro-esophageal reflux disease without esophagitis; E03.9 Hypothyroidism, unspecified; G47.33 Obstructive sleep apnea (adult) (pediatric)
CPT/HCPCS: 12345; 36416; 80053; 81003; 82140; 82550; 82962; 83735; 85014; 85018; 85025; 96360; 96372; 97161; 97165; 99283; 99285; G0378; J1815; J7030

== ENCOUNTER → 2020-09-05 11:04 | Outpatient (BNVA) | payer BC, SELFPAY | PROVIDERS: PCP Family Medicine; Visit Provider Surgery | DX: Z01.812 Encounter for preprocedural laboratory examination (principal); R18.8 Other ascites | CPT/HCPCS: 87635 ==

== ENCOUNTER 2020-09-08 11:38 | Outpatient (CLI) | payer BC, SELFPAY ==
--- NOTE | 2020-09-08 11:52 | US_ITS ---
WS: [id number] ULTRASOUND-GUIDED PARACENTESIS CLINICAL INFORMATION: OTHER ASCITES COMPARISON: None. Procedure Informed consent: The risks, benefits, and alternatives of the procedure were discussed with the sajan ent. Verbal and written consent was obtained. Timeout: A timeout was performed to confirm the correct patient, procedure, and site. Preparation: A suitable skin site was identified. The patient was prepped and draped in usual sterile fashion. Lidocaine 1% was used for local anesthesia. Catheter: 4 Uzbek One-step Yueh catheter. Side: Right Lower quadrant. Fluid Volume: 08793 ml Color: Latisha DISPOSITION: Discarded safely. Complications: None. Patient disposition: Discharged from the department in stable condition. US/US paracentesis abd w [id number] IMPRESSION: Uncomplicated ultrasound-guided paracentesis. Removal of 10,300 cc ascites
[2020-09-08 13:41] VITALS: BMI 27.6
[2020-09-08 14:02] VITALS: BP 115/67; PULSE 88; RESP 18; TEMP 36.7; O2SAT 98
[2020-09-08 17:20] VITALS: BP 107/61
== END 2020-09-08 11:39 | disposition home or self-care (01) ==
LOC: RAD 11:41 → OPS 13:41
PROVIDERS: PCP Family Medicine; Visit Provider Surgery
DX: R18.8 Other ascites (principal)
CPT/HCPCS: 49083; 96365; P9047

== ENCOUNTER 2020-12-15 10:19 | Outpatient (CLI) | payer BC, SELFPAY ==
[2020-12-15 12:48] LABS: Basophils % 0.4 %; Eosinophils # 0.1 10^3/uL (0.0-0.8); Eosinophils % 1.9 %; Hematocrit 28.5 % (42.0-52.0); Hemoglobin 8.9 g/dL (11.7-16.6); Lymphocytes # 0.8 10^3/uL (0.8-4.8); Lymphocytes % 11.1 %; Mean Corpuscular HGB Conc 31.2 g/dL (30.0-36.0); Mean Corpuscular Hemoglobin 23.7 pg (28.0-34.0); Mean Corpuscular Volume 75.8 fL (80-94); Mean Platelet Volume 9.4 fL (7.4-10.4); Monocytes # 1.4 10^3/uL (0.2-0.9); Monocytes % 20.8 %; Neutrophils # 4.45 10^3/uL (1.8-7.7); Neutrophils % 65.4 %; Nucleated Red Blood Cells % 0 %; Platelet Count 196 10^3/cmm (130-400); Red Blood Count 3.76 10^6/uL (4.1-5.3); Red Cell Distribution Width 18.6 % (12.1-15.1); White Blood Count 6.8 10^3/uL (4.0-10.0)
[2020-12-15 13:10] LABS: Alanine Aminotransferase 30 U/L (0-41); Albumin Level 3.3 g/dL (3.5-5.2); Alkaline Phosphatase 65 IU/L (40-130); Anion Gap 12.5 (5-19); Aspartate Amino Transferase 31 U/L (0-40); Blood Urea Nitrogen 21 mg/dL (8-23); Calcium 8.5 mg/dL (8.5-10.5); Carbon Dioxide 23 mmol/L (22-29); Chloride 93 mmol/L (98-107); Ferritin 42 ng/mL (30-400); Globulin 3.3 g/dL (1.3-4.6); Glomerular Filtration Rate 135.6 mL/min (90-130); Glucose 111 mg/dL (65-115); Iron 340 ug/dL (59-158); Lactate Dehydrogenase 136 U/L (135-225); Osmolality Calculated 262 mOsm/kg (285-295); Potassium 4.5 mmol/L (3.5-5.1); Sodium 124 mmol/L (136-145); Total Bilirubin 1.2 mg/dL (0.15-1.2); Total Protein 6.6 g/dL (6.6-8.7)
[2020-12-15 13:40] LABS: Erythrocyte Sedimentation Rate 21 mm/hr (0-10)
[2020-12-15 13:47] LABS: LAB Peripheral Smear Sent for Review
[2020-12-15 13:52] LABS: Unsaturated Iron Binding < 17 ug/dL (112-347)
--- NOTE | 2020-12-15 18:29 | ONC CON_ITS ---
Dr. Parham New Patient Note Patient: Luis Rodriguez Unit #: [id number]: [id number] Dicatated By: Dima Parham M.D.Date of Visit: Dec 15, 2020 Onc MED New Patient/Consult Referring Physician: MD Ro Henderson F.NEduardo Chief Complaint: Anemia. History of Present Illness: This is a 65 year-old man with moderately severe anemia. I had seen him initially in February 2019 in regard to a mild thrombocytopenia, platelet count 104,000. At that time he was just borderline anemic with hemoglobin 12.0 g with normal red cell indices. His serum iron studies, though, did show low transferrin saturation at 12.2% and his ferritin was relatively low at 58 ng/mL. He had mildly elevated total bilirubin and mildly elevated SGOT/SGPT levels, and his CT abdomen did show findings consistent with cirrhosis of the liver with associated portal hypertension and splenomegaly. With those findings, he was referred to a tech ed teacher for further management. In regard to the iron deficiency, he had previously been anemic, and he had undergone EGD and colonoscopy in July 2018. The colonoscopy was unrevealing. The EGD showed diffuse, severe chronic gastritis. He subsequently had been on treatment with a PPI and he also began on oral iron supplementation with ferrous sulfate. His follow-up laboratory studies on 12/23/2018 included CBC which showed his hemoglobin borderline at 13.2 g with white blood cell count mildly decreased at 4700 and platelet count low at 100,000. The MCV was 92. The serum iron studies showed low normal transferrin saturation at 22% and the ferritin was normal at 75.5 ng/mL. With his hemoglobin adequate at 12 g, he was recommended to continue with the oral iron supplementation. INTERIM HISTORY: Subsequent to my visit with him in February 2019 he had developed moderately severe anemia. In February 2020 he was admitted to the hospital with acute GI bleeding. His hemoglobin had dropped to 8 g. There was no active bleeding noted at that time. He did not require transfusion. His subsequent EGD showed chronic gastropathy in the antrum. There was no active bleeding noted. In July 2020 he was admitted to the hospital with acute hepatic encephalopathy. His hemoglobin at that time dropped to as low as 7.0 g, but he still did not require transfusion. During this time, he underwent esophageal banding on 2 occasions and he also had therapeutic paracentesis on 2 occasions. The most recent was in August. During his subsequent follow-up with Dr. Bustillo he had remained moderately anemic. His laboratory studies from 11/21/2020 included CBC showing hemoglobin 9.6 g with hematocrit 32.6%. The red cell indices were hypochromic/microcytic with MCV 77 and MCH 22. The white blood cell count was 6000 and the platelet count was 228,000. Comprehensive metabolic profile showed normal renal function with BUN 12 and creatinine 0.92 mg/dL. Bilirubin was just borderline high at 1.0 mg/dL. The other liver enzymes were normal. His earlier studies from 11/14/2020 included serum iron studies which showed normal transferrin saturation at 38% and elevated B12 level 1401 pg/mL. TSH was normal at 2.82 ???IU/mL. He complains of fatigue and lethargy. He has very limited activity. His ECOG score is 3. He had lost his appetite, but during the past 2 weeks it has improved. He has had a weight gain in the range of 25 pounds during the past month, but that also has been associated with increased abdominal swelling and ascites. He has not had fever or night sweats. He complains that he is freezing all the time. He has not had sore throat or difficulty swallowing, but his has noticed that his voice has changed. He is short of breath a lot. He does not complain of cough and he has not been having chest pain. He has episodes of nausea/vomiting of abrupt onset occurring once or twice a week. He had some acid reflux this morning, but his acid reflux symptoms have otherwise been well controlled on medication. He previously had been having black tarry stools, but those seem to have resolved now. He does have loose stools/diarrhea with the lactulose. He was having significant pain in his shoulders, but that did improve somewhat after local injections. He has no other joint or bone pain, he does complain of having muscle spasms in his legs and in his feet/toes. He has occasional headache. He reports feeling lightheaded pretty often. He has no numbness/paresthesia or other focal neurologic symptoms. Past Medical History: His medical history includes cirrhosis of the liver with portal hypertension, eczema, gastroesophageal reflux disease, hypertension, hypothyroidism, obstructive sleep apnea, and type II diabetes. Past Surgical History: His surgical/procedural history includes appendectomy, multiple arthroscopic surgeries on both knees, vasectomy, EGD and colonoscopy in 2018, and ulnar artery graft to right hand in 1999. He had repeat EGD in February 2020. He has had 2 esophageal banding procedures and he has undergone therapeutic paracentesis twice, most recently in August 2020. He completed his covid vaccinations in 2020. Medications: Dapagliflozin-metFORMIN HCl ER 1 Tablet (of 10-1000 mg) Tablet SR 24 HR Oral daily, hydroCHLOROthiazide 1 Tablet (of 25 mg) Oral daily, Iron 1 Tablet (of 325 (65 fe) mg) Oral b.i.d., Liraglutide 1 (18 mg) Subcutaneous daily, Metoprolol Tartrate 1 Tablet (of 25 mg) Oral b.i.d., Multivitamin Adult 1 Tablet Oral daily, Omeprazole 1 Capsule (of 20 mg) Capsule Delayed Release Oral daily, Synthroid 1 Tablet (of 25 mcg) Oral daily, Telmisartan 1 Tablet (of 80 mg) Oral daily, tiZANidine HCl 1 Tablet (of 2 mg) Oral q 6 hours PRN Allergies: Sulfa Antibiotics Social History: Mr. RODRIGUEZ is . He had previously been employed as a [employer]. He has a history of smoking 1 pack of cigarettes daily, but only for a few years. He quit smoking at age 25. He previously had moderate alcohol use, estimated at 3-6 ounces of liquor daily. Family History: Father of heart disease at age 83. Mother at age 67 with nonalcoholic liver cirrhosis. She also had diabetes. A half-sister of heart disease, and another half-sister had a sudden . A half-brother is in good health. Review Of Symptoms: Constitutional - He generally feels very poor. He has significant fatigue and reports no energy. He is mainly sedentary. He had ost but recently it has improved. He is drinking supplemental shakes and he has gained some weight back. No fever or night sweats. He complains that he is freezing all the time. ECOG score is 3, ENMT - No sinus congestion/drainage. No mouth sores. No sore throat or difficulty swallowing. His reports recent change in his voice, Hematologic/Lymphatic - He bruises easily, Respiratory - He is short of breath pretty much all the time. No cough. No pleuritic pain or hemoptysis, Cardiovascular - No angina pain. No palpitations, Gastrointestinal - He has occasional episodes of nausea/vomiting that come on very abruptly. No heartburn or acid reflux. He has frequent diarrhea from Lactulose. No blood in the stool. He was having frequent black tarry stools. He has chronic abdominal ascites that has required paracentesis, most recently in August, Genitourinary (M) - No dysuria or hematuria. No urinary frequency. No urgency or incontinence, Musculoskeletal - He has been having pain in his shoulders. It did improve following local injections. He has been having muscle spasms in his legs and in his feet and toes, Integumentary - No skin eruption, Neurologic - He has frequent headaches. He has dizziness. No numbness or tingling. No other focal neurologic symptoms, Psychiatric - No anxiety or depression. No insomnia. Vital Signs: Performed on Dec 15, 2020 11:09: 5, 0, 27.27, 2.23 sq.m, 74.00 in, 98 %, 86 /min, 18 /min, 126/74 mm(hg), 97.2 F (LOW), and 212.4 lbs (LOW). Physical Examination: Constitutional - He appears generally weak, Eyes - Sclerae nonicteric. Conjunctivae clear, ENMT - No lesions noted in the oral cavity, Hematologic/Lymphatic - No cervical, clavicular, or axillary adenopathy, Respiratory - Lungs are clear with good air movement bilaterally, Cardiovascular - Heart rhythm is regular. There is a II/ systolic murmur. There is no gallop or rub noted, Abdomen - Abdomen appears moderately distended with ascites. Liver and spleen are not overtly enlarged. There is no abdominal mass noted and there is no inguinal adenopathy, Extremities - There are mild venous stasis changes in both legs. There is no edema. There are scattered purpuric lesions, Neurologic - No focal neurologic deficits noted. Problem List: 1. Moderately severe anemia. There are multiple potential causes, but at least some component is very likely due to iron deficiency. 2. He has underlying cirrhosis of the liver with portal hypertension and splenomegaly. He has had associated GI bleeding and hepatic encephalopathy. 3. He also has associated ascites. 4. Hypertension. 5. Type II diabetes. 6. GERD. 7. Hypothyroidism. 8. Obstructive sleep apnea. 9. He has mild eczema. Problems Addressed with this Encounter and Plan: Patient with moderately severe anemia. There are multiple potential causes. Despite the normal transferrin saturation, with hypochromic/microcytic red cell indices and with his history of GI bleeding, at least some component is very likely due to iron deficiency. As such, he will have additional laboratory studies today to include CBC, CMP, reticulocyte count, LDH level, haptoglobin level, serum iron studies and ferritin, sed rate, protein electrophoresis, and serum free light chain assay. He will have further evaluation as indicated. However, if either the transferrin saturation or the ferritin are suggestive of iron deficiency, I will plan to give him parenteral iron replacement with Injectafer, as he clearly is not responding to oral iron supplementation. With that in mind, I also have recommended that he go ahead and reduce his ferrous sulfate to 1 tablet every other day. Signed By: Dima Parham M.D. <<Signature on File>>
[2020-12-16 16:23] LABS: KAPPA LIGHT CHAIN, FREE, SERUM 27.7 mg/L (3.3-19.4); KAPPA/LAMBDA LIGHT CHAINS FREE 1.25 (0.26-1.65); LAMBDA LIGHT CHAIN, FREE, SERU 22.1 mg/L (5.7-26.3)
[2020-12-16 16:57] LABS: Erythropoietin 62.3 mIU/mL (2.6-18.5)
[2020-12-19 13:18] LABS: PROTEIN, TOTAL 6.2 g/dL (6.1-8.1)
[2020-12-19 16:37] LABS: ALBUMIN 3.1 g/dL (3.8-4.8); ALPHA 1 GLOBULIN 0.3 g/dL (0.2-0.3); ALPHA 2 GLOBULIN 0.6 g/dL (0.5-0.9); BETA 1 GLOBULIN 0.5 g/dL (0.4-0.6); BETA 2 GLOBULIN 0.4 g/dL (0.2-0.5); GAMMA GLOBULIN 1.4 g/dL (0.8-1.7)
== END 2020-12-15 10:20 | disposition home or self-care (01) ==
LOC: ONCMED 10:22
PROVIDERS: PCP Family Medicine; Visit Provider Internal Medicine Medical Oncology
DX: D64.9 Anemia, unspecified (principal); K74.60 Unspecified cirrhosis of liver; K76.6 Portal hypertension; I10 Essential (primary) hypertension; E11.9 Type 2 diabetes mellitus without complications; K21.9 Gastro-esophageal reflux disease without esophagitis; E03.9 Hypothyroidism, unspecified; G47.33 Obstructive sleep apnea (adult) (pediatric); L30.9 Dermatitis, unspecified; Z79.899 Other long term (current) drug therapy
CPT/HCPCS: 36415; 80053; 82668; 82728; 83010; 83540; 83550; 83615; 83883; 84155; 84165; 85025; 85045; 85651; 99205

== ENCOUNTER 2021-01-18 12:44 | Outpatient (CLI) | payer MEDICARE, OTHER, SELFPAY ==
[2021-01-18] MEDS: ferric carboxy (IVPB) 750 MG in sodium chloride 0.9% (100 ml) 100 ML 460 MG IV (13:20)
[2021-01-18 14:25] LABS: Iron 20 ug/dL (59-158); Percent Saturation 6.5 % (20-50); Total Iron Binding Capacity 306 mcg/dl; Unsaturated Iron Binding 286 ug/dL (112-347)
== END 2021-01-18 12:45 | disposition home or self-care (01) ==
LOC: ONCMED 12:50
PROVIDERS: PCP Family Medicine; Visit Provider Internal Medicine Medical Oncology
DX: D50.0 Iron deficiency anemia secondary to blood loss (chronic) (principal)
CPT/HCPCS: 36415; 83540; 83550; 96365; J1439

== ENCOUNTER 2021-01-25 06:42 | Outpatient (CLI) | payer MEDICARE, OTHER, SELFPAY ==
[2021-01-25] MEDS: ferric carboxy (IVPB) 750 MG in sodium chloride 0.9% (100 ml) 100 ML 460 MG IV (14:05)
== END 2021-01-25 06:43 | disposition home or self-care (01) ==
LOC: ONCMED 06:45
PROVIDERS: PCP Family Medicine; Visit Provider Internal Medicine Medical Oncology
DX: D50.9 Iron deficiency anemia, unspecified (principal)
CPT/HCPCS: 96365; J1439

== ENCOUNTER 2021-01-25 14:35 | Outpatient (CLI) | payer MEDICARE, OTHER, SELFPAY ==
--- NOTE | 2021-01-25 14:43 | XR_ITS ---
WS: [id number] Lumbar spine, 3 views, 01/25/2021 Clinical Data: MIDLINE T SPINE BACK PAIN Comparison: None. Findings: No compression fractures or subluxation is seen. There is disc narrowing at L4-L5 and L5-S1. The gregory sverse processes and SI joints are normal. There is osteoarthritis involving lumbar vertebral bodies. There is a large amount of fecal material throughout colon. XR/XR lumbar spine 2-3V* [id number] Impression: 1. Degenerative disc narrowing at L4-L5 and L5-S1. 2. Osteoarthritis of all the lumbar vertebral bodies.
--- NOTE | 2021-01-25 14:43 | XR_ITS ---
WS: [id number] Thoracic spine, 3 views, 01/25/2021 Clinical Data: LOW BACK PAIN Comparison: None. Findings: No compression fractures are seen. The disc heights are normal. There is osteoarthritic change involving the thoracic vertebral bodies. The paravertebral regions are normal. XR/XR thoracic spine 2V [id number] Impression: Moderate thoracic vertebral body osteoarthritis.
== END 2021-01-25 14:36 | disposition home or self-care (01) ==
PROVIDERS: PCP Family Medicine; Visit Provider Family Medicine
DX: K70.31 Alcoholic cirrhosis of liver with ascites (principal); M54.41 Lumbago with sciatica, right side; M54.42 Lumbago with sciatica, left side; M54.6 Pain in thoracic spine; M47.814 Spondylosis without myelopathy or radiculopathy, thoracic region; M47.816 Spondylosis without myelopathy or radiculopathy, lumbar region
CPT/HCPCS: 72070; 72100

== ENCOUNTER 2021-02-09 20:45 | Emergency (ER) | payer MEDICARE, OTHER, SELFPAY ==
[2021-02-09 20:51] VITALS: BP 122/74; PULSE 99; RESP 16; TEMP 37.5; O2SAT 98; BMI 27.3
[2021-02-10 01:17] VITALS: BP 118/70; PULSE 88; RESP 19; O2SAT 98
--- NOTE | 2021-02-10 01:25 | W.ED.GENADLT ---
HPI - General Adult General: Chief complaint: General Medical Stated complaint: liver disease/bilat foot swelling/abd swelling Time Seen by Provider: 02/10/21 01:20 Source: patient Mode of arrival: ambulatory Limitations: no limitations History of Present Illness: HPI narrative: 66-year-old male has a history of liver cirrhosis and gets ascites and swelling and has had paracenteses. He states that he saw his PCP on Saturday who is supposed to set him 1 up but has not been able to get one this week. He states he just had increased swelling causing him pain and discomfort. Denies any shortness of breath. He denies any fevers. Denies any worsening improving factors. Associated symptoms: Deny chest pain, dyspnea, headache(s) or rash Review of Systems Const: Denies: fever(s), chills, body aches or change in appetite Eyes: Denies: blurry vision or eye discomfort ENMT: Denies: throat pain or dental pain Card: Denies: chest pain Resp: Denies: dyspnea GI: Reports: abdominal pain : Denies: dysuria Musc: Reports: extremity swelling Skin/Breast: Denies: rash Neuro: Denies: headache(s) Psych: Denies: depression Ravi/Lymph: Denies: easy bruising All/Imm: Denies: urticaria PFSH ED PFSH: Medical History Acute hyponatremia -improved with hydration, on salt tablets -suspect some degree of this will persist chronically CKD (chronic kidney disease) stage 2, GFR 60-89 ml/min -baseline Cr wnl -current renal function at baseline GERD (gastroesophageal reflux disease) Hepatic encephalopathy -noted ammonia-69; mentation at baseline -on lactulose History of cirrhosis of liver -has been following up at [facility] in [place], less frequently lately due to coronavirus pandemic -normal LFTs History of diabetes mellitus -resume oral meds Hypertension -VSS -discontinue ARB, continue Aldactone; due to low normal BP and risk of hypotension Hypothyroidism -TSH wnl -continue levothyroxine Obstructive sleep apnea -CPAP qhs Surgical History H/O esophagogastroduodenoscopy (03/08/20) History of appendectomy History of arthroscopic knee surgery History of surgery on upper extremity History of vasectomy Family History Other Diabetes Social History Smoking and tobacco status: former smoker Quit status (tobacco): has quit using tobacco Alcohol intake: former Physical Exam Const: COMMON NORMALS: no acute distress, patient oriented x3 and healthy appearing HENMT: COMMON NORMALS: normocephalic and atraumatic HEAD & SCALP: normocephalic and atraumatic Eye: COMMON NORMALS: Equal, round and reactive pupils present and EOMs intact bilaterally PUPIL: Yes Equal, round and reactive pupils present Neck/C-Spine: COMMON NORMALS: full ROM and supple Chest: COMMONS NORMALS: normal inspection of the chest and normal palpation of entire chest wall Resp: COMMON NORMALS: normal respiratory effort, No retractions, No use of accessory muscles and clear to auscultation bilaterally AUSCULTATION: clear to auscultation bilaterally Cardio: COMMON NORMALS: regular rate, regular rhythm and No murmurs present (Cardio) RATE: regular rate RHYTHM: regular rhythm GI: COMMON NORMALS: Soft to palpation, non-tender and no masses PALPATION: Yes Soft to palpation OTHER: Diffuse abdominal swelling with no tenderness Extremity: COMMON NORMALS: full ROM NARRATIVE EXTREMITY EXAM: 2+ edema to lower extremity Neuro: COMMON NORMALS: patient oriented x3, moves all extremities and no focal motor deficits Psych: COMMON NORMALS: mental status grossly normal, Normal thought process present and cooperative THOUGHT PROCESS: Normal thought process present Skin: COMMON NORMALS: no rashes or lesions noted and no wounds GENERAL SKIN EXAM: no rashes or lesions noted Course Vital Signs: Vital signs: Vital Signs Temperature 99.5 F 02/09/21 20:51 Pulse Rate 88 02/10/21 01:17 Respiratory Rate 19 H 02/10/21 01:17 Blood Pressure 118/70 02/10/21 01:17 Pulse Oximetry 98 02/10/21 01:17 MDM - General Adult MDM Narrative: Medical decision making narrative: Patient presents with ascites from cirrhosis. His blood work here is all normal and he is not having any respiratory distress. Did give him an IV dose of Lasix we will set him up outpatient paracentesis. He is stable for discharge and return if worsening. Lab Data: Labs: Lab Results 02/10/21 02/10/21 02/10/21 Range/Units 01:30 01:30 01:30 WBC 12.9 H (4.0-10.0) 10^3/ uL RBC 4.16 (4.1-5.3) 10^6/u L Hgb 11.0 L (11.7-16.6) g/dL Hct 34.3 L (42.0-52.0) % MCV 82.5 (80-94) fL MCH 26.4 L (28.0-34.0) pg MCHC 32.1 (30.0-36.0) g/dL RDW Not Reportable Plt Count 162 (130-400) 10^3/c mm MPV 9.4 (7.4-10.4) fL Neut % (Auto) 78.5 % Lymph % (Auto) 7.8 % [place] % (Auto) 11.4 % Eos % (Auto) 1.1 % Baso % (Auto) 0.8 % Neut # (Auto) 10.10 H (1.8-7.7) 10^3/u L Lymph # (Auto) 1.0 (0.8-4.8) 10^3/u L [place] # (Auto) 1.5 H (0.2-0.9) 10^3/u L Eos # (Auto) 0.1 (0.0-0.8) 10^3/u L Baso # (Auto) 0.1 (0.0-0.1) 10^3/u L Nucleated RBC % (a uto) 0 % Nucleated RBCs # 0.0 /100WBC PT 16.60 H (12.1-14.9) SECO NDS INR 1.31 H (0.8-1.2) Sodium 125 L (136-145) mmol/L Potassium 4.9 (3.5-5.1) mmol/L Chloride 95 L (98-107) mmol/L Carbon Dioxide 21 L (22-29) mmol/L Anion Gap 13.9 (5-19) BUN 14 (8-23) mg/dL Creatinine 0.6 L (0.7-1.2) mg/dL GFR Calculation 135.2 H (90-130) mL/min Glucose 132 H (65-115) mg/dL Calculated Osmolal ity 262 L (285-295) mOsm/k g Calcium 8.5 (8.5-10.5) mg/dL Total Bilirubin 2.7 H (0.15-1.2) mg/dL AST 36 (0-40) U/L ALT 27 (0-41) U/L Alkaline Phosphata se 80 (40-130) IU/L NT-Pro-B Natriuret Pep 166 H (0-125) pg/mL Total Protein 6.1 L (6.6-8.7) g/dL Albumin 3.0 L (3.5-5.2) g/dL Globulin 3.1 (1.3-4.6) g/dL Discharge Plan Discharge Patient Disposition: Home Clinical Impression: 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 Ascites Qualifiers: Ascites type: other type Qualified Code(s): R18.8 - Other ascites Condition: Stable Prescriptions: No Action acetaminophen [Tylenol Extra Strength] 500 mg Tablet 1,000 mg PO Q6H PRN (Reason: Pain) RF: 0 levothyroxine 25 mcg tablet 25 mcg PO DAILY@0800 RF: 0 ferrous sulfate [iron] 325 mg (65 mg iron) Tablet 325 mg PO BID@0800,1999 RF: 0 betamethasone dipropionate 0.05 % ointment 1 applic TOPICAL PRN RF: 0 Xifaxan 550 mg tablet 550 mg PO BID@0800,1999 RF: 0 Xigduo XR 10-1,000 mg tablet, IR - ER, biphasic 24hr 1 tab PO DAILY@0800 RF: 0 Ozempic 0.25 mg or 0.5 mg(2 mg/1.5 mL) pen injector See Rx Instructions .ROUTE .COMPLEX RF: 0 spironolactone 50 mg tablet 100 mg PO DAILY@0800 RF: 0 cyclobenzaprine 10 mg Tablet 10 mg PO TID PRN (Reason: Muscle Pain) RF: 0 sucralfate [Carafate] 1 gram Tablet 1 g PO TID@0800,1200,2000 RF: 0 furosemide [Lasix] 20 mg Tablet 20 mg PO DAILY@0800 RF: 0 multivitamin Tablet 1 tab PO DAILY@0800 RF: 0 Airborne Gummy 250-11.66 mg Tablet,Chewable 1 tab PO DAILY@0800 RF: 0 omeprazole 20 mg tablet,delayed release (DR/EC) 40 mg PO BID@08,1999 RF: 0 lactulose 10 gram/15 mL solution 30 ml PO BID@00,1999 RF: 0 Discharge Orders: Discharge ED (Routine); Ordered 02/10/21 Ordered By: Aakash Peacock Referrals: Floresita Bustillo DO [Primary Care Provider] - 1-3 days Discharge Diet: Advance as tolerated Discharge Activity: Resume usual activity Patient Instructions: Ascites (ED) Coding Level of Care Code ED Capacity Planning Analyst for Chg Fwd Exam Comprehensive
[2021-02-10] MEDS: FUROsemide 10 mg/mL SDV 10mL 80 MG IVP (01:46)
[2021-02-10 01:58] LABS: Basophils # 0.1 10^3/uL (0.0-0.1); Basophils % 0.8 %; Eosinophils # 0.1 10^3/uL (0.0-0.8); Eosinophils % 1.1 %; Hematocrit 34.3 % (42.0-52.0); Lymphocytes % 7.8 %; Mean Corpuscular HGB Conc 32.1 g/dL (30.0-36.0); Mean Corpuscular Hemoglobin 26.4 pg (28.0-34.0); Mean Corpuscular Volume 82.5 fL (80-94); Mean Platelet Volume 9.4 fL (7.4-10.4); Monocytes # 1.5 10^3/uL (0.2-0.9); Monocytes % 11.4 %; Neutrophils % 78.5 %; Nucleated Red Blood Cells % 0 %; Platelet Count 162 10^3/cmm (130-400); Red Blood Count 4.16 10^6/uL (4.1-5.3); White Blood Count 12.9 10^3/uL (4.0-10.0)
[2021-02-10 01:59] LABS: INR 1.31 (0.8-1.2)
[2021-02-10 02:16] LABS: Slide Review Slide Review Perform
[2021-02-10 02:19] LABS: Alanine Aminotransferase 27 U/L (0-41); Alkaline Phosphatase 80 IU/L (40-130); Anion Gap 13.9 (5-19); Aspartate Amino Transferase 36 U/L (0-40); Blood Urea Nitrogen 14 mg/dL (8-23); Calcium 8.5 mg/dL (8.5-10.5); Carbon Dioxide 21 mmol/L (22-29); Chloride 95 mmol/L (98-107); Globulin 3.1 g/dL (1.3-4.6); Glomerular Filtration Rate 135.2 mL/min (90-130); Glucose 132 mg/dL (65-115); NT Pro B Type Natriuretic Pept 166 pg/mL (0-125); Osmolality Calculated 262 mOsm/kg (285-295); Potassium 4.9 mmol/L (3.5-5.1); Sodium 125 mmol/L (136-145); Total Bilirubin 2.7 mg/dL (0.15-1.2); Total Protein 6.1 g/dL (6.6-8.7)
[2021-02-10 02:56] VITALS: BP 109/73; PULSE 88; RESP 16; O2SAT 99
[2021-02-10 02:58] VITALS: BP 109/73; PULSE 89; RESP 17; O2SAT 97
--- NOTE | 2021-02-14 11:06 | DCPLANNER ---
sr. manager had message to schedule an out patient paracentesis for patient. sr. manager faxed order for a paracentesis to be scheduled. Centralized scheduling will call patient with appointment information.
--- NOTE | 2021-02-15 07:53 | DCPLANNER ---
Patient had a paracentesis scheduled for 02.15.21 and patient did attend that.
== END 2021-02-10 02:58 | disposition home or self-care (01) ==
PROVIDERS: Emergency Provider Emergency Medicine; PCP Family Medicine
DX: R18.8 Other ascites (principal); K74.60 Unspecified cirrhosis of liver; K75.81 Nonalcoholic steatohepatitis (NASH); I12.9 Hypertensive chronic kidney disease with stage 1 through stage 4 chronic kidney disease, or unspecified chronic kidney disease; N18.2 Chronic kidney disease, stage 2 (mild); E11.22 Type 2 diabetes mellitus with diabetic chronic kidney disease; E03.9 Hypothyroidism, unspecified; Z87.891 Personal history of nicotine dependence
CPT/HCPCS: 80053; 83880; 85025; 85610; 96374; 99283; J1940

== ENCOUNTER → 2021-02-15 07:19 | Day surgery (SDC) | payer MEDICARE, OTHER, SELFPAY ==
--- NOTE | 2021-02-15 07:33 | US_ITS ---
WS: [id number] ULTRASOUND-GUIDED THERAPEUTIC AND DIAGNOSTIC PARACENTESIS Procedure, risks, and complications have been explained to the patient. Consent is obtained. Utilizing aseptic technique and 1% buffered lidocaine, a small dermatome was made through which a 5 F rench Yueh catheter was inserted. Approximately 10,300 ml of clear peritoneal fluid was obtained wit hout difficulty. No complications encountered. Specimen collected for analysis as requested. US/US paracentesis abd w [id number] IMPRESSION: Uncomplicated paracentesis yielding 10,300 ml of peritoneal fluid.
[2021-02-15 08:00] VITALS: BP 119/68; PULSE 91; RESP 16; TEMP 36.3; O2SAT 97
[2021-02-15 08:41] VITALS: BMI 26.4
[2021-02-15 10:36] VITALS: BP 108/56; PULSE 82; RESP 16; O2SAT 100
--- NOTE | 2021-02-15 11:05 | PC.NURSE ---
10,3000ML PERITONEAL FLUID REMOVED, ADMINISTERED ALBUMIN 25% 50 GM IV, PER DOCTOR'S ORDER.
[2021-02-15 12:48] LABS: Mononuclear #, Pertinoneal Fl 0.066 10^3/uL
[2021-02-15 12:49] LABS: Appearance, Peritoneal Fluid Hazy (Clear); Color, Peritoneal Fluid Pale Yellow (Pale Yellow)
[2021-02-15 12:50] LABS: Pathology Referral Yes; RBC Pertioneal Fluid 0 10^3/uL; WBC Peritoneal Fluid 86 /uL
== END ==
PROVIDERS: PCP Family Medicine; Visit Provider Family Medicine
DX: K70.31 Alcoholic cirrhosis of liver with ascites (principal)
CPT/HCPCS: 49083; 80500; 87070; 87075; 87205; 89050; 96365; 96366; 96367; P9047

== ENCOUNTER 2021-02-19 09:27 | Inpatient (IN) | payer MEDICARE, OTHER, SELFPAY ==
[2021-02-19] VITALS (8 sets, daily range): BP systolic 104–112; BP diastolic 58–78; PULSE 73–89; RESP 16–18; TEMP 36.6–37.1; O2SAT 96–99; BMI 22.8
--- NOTE | 2021-02-19 10:02 | CTR_ITS ---
PROCEDURE INFORMATION: Exam: CT Head Without Contrast Exam date and time: 02/19/2021 10:02 AM Age: 66 years old Clinical indication: Altered mental status/memory loss; Additional info: AMS, fall/facial bruise 2 days ago TECHNIQUE: Imaging protocol: Computed tomography of the head without contrast. Radiation optimization: All CT scans at this facility use at least one of these dose optimization techniques: automated exposure control; mA and/or kV adjustment per patient size (includes targeted exams where dose is matched to clinical indication); or iterative reconstruction. COMPARISON: No relevant prior studies available. RADIATION DOSE METRICS: Total DLP (mGy-cm): 693.96 FINDINGS: Brain: There is volume loss and periventricular low density compatible with chronic small vessel disease changes. There is no acute hemorrhage, edema or mass effect. There are small bifrontal benign hygromas. Cerebral ventricles: No ventriculomegaly. Paranasal sinuses: There is patchy opacification of the sphenoid air cells. Mastoid air cells: Visualized mastoid air cells are well aerated. Bones/joints: Unremarkable. No acute fracture. Soft tissues: Unremarkable. CT/CT head wo con* [id number] IMPRESSION: No acute intracranial abnormality. Radiation Dose CTDIVOL = (mGy): DLP = 693.96 (mGy-cm)
--- NOTE | 2021-02-19 10:02 | W.ED.GENADLT ---
HPI - General Adult General: Chief complaint: Altered Mental Status Stated complaint: End Stage Liver Disease Related Complications Time Seen by Provider: 02/19/21 09:34 History of Present Illness: HPI narrative: CC: Confusion HPI: [66]yo patient w/ pmh of CKD, HTN, SORENSEN cirrhosis c/b ascites (who underwent outpatient paracentesis and removal of 10L of ascitc fluids) BIBA with for worsenign confusion. Since , has noticed patient has some nausea vomiting and has been unable to take his usual dose of lactulose at home. Patient normally takes 30 mL of lactulose 3-5 times a day. At his baseline, is GCS 15, AAOx3 able to respond in Kraus function. Ever, since , noticed that patient has become increasingly more confused and unable to answer most questions. Patient is AAO x1 rest of history is limited. Per , patient has not had any symptoms of cough, runny nose, sore throat, abdominal pain or hematochezia or hematemesis. in July, patient had similar presentation where he was diagnosed with elevated ammonia level in the setting of hepatic encephalopathy. was concerned related to him to be checked out since he has not been able to take his usual amount of lactulose since . No, patient also had an episode of fall 1 week ago with right forehead facial bruises. Denies any changes in mentation after the fall. onset: 3 days ago Duration: ongoing 3 days ago Location: home Severity: moderate Review of Systems Narrative: Constitutional: No fever, no chills. HEENT: No vision changes CV: No chest pain, no palpitations PULM: No productive cough, no dyspnea. GI: No abdominal pain, +N/+V/D. : No Dysuria MSKEL: No muscle pain SKIN: No new rashes, no lesions. NEURO: No headache, no focal weakness. +confusion HEME: No visible bruises PSYCH: Normal mood PFSH ED PFSH: Medical History Acute hyponatremia -improved with hydration, on salt tablets -suspect some degree of this will persist chronically CKD (chronic kidney disease) stage 2, GFR 60-89 ml/min -baseline Cr wnl -current renal function at baseline GERD (gastroesophageal reflux disease) Hepatic encephalopathy -noted ammonia-69; mentation at baseline -on lactulose History of cirrhosis of liver -has been following up at [facility] in [place], less frequently lately due to coronavirus pandemic -normal LFTs History of diabetes mellitus -resume oral meds Hypertension -VSS -discontinue ARB, continue Aldactone; due to low normal BP and risk of hypotension Hypothyroidism -TSH wnl -continue levothyroxine Obstructive sleep apnea -CPAP qhs Surgical History H/O esophagogastroduodenoscopy (03/08/20) History of appendectomy History of arthroscopic knee surgery History of surgery on upper extremity History of vasectomy Family History Other Diabetes Social History Smoking and tobacco status: former smoker Quit status (tobacco): has quit using tobacco Alcohol intake: former Physical Exam Narrative: EXAM NARRATIVE: Head: Atraumatic Eyes: PERRL, conjunctiva without injection ENT: Mucous membrane moist NECK: Supple without lymphadenopathy LUNGS: LCTAB CV: RRR ABDOMEN: Soft, nontender all quadrants, guarding or rebound tenderness EXTREMITY: Normal ROM, +mild b/l asterixis SKIN: No rash or erythema, no signs of track conley, no visible patches, no noticeable cellulitis NEURO: GCS of 14 (confused), AAOx1 (self only), and commands, moving all extremities, no gross deficits. PSYCH: Somnolent unable to fully assess at this time Course Vital Signs: Vital signs: Vital Signs Temperature 98.8 F 02/19/21 09:40 Pulse Rate 83 02/19/21 09:55 Respiratory Rate 18 02/19/21 09:55 Blood Pressure 112/58 02/19/21 09:55 Pulse Oximetry 99 02/19/21 09:55 MDM - General Adult MDM Narrative: Medical decision making narrative: [][id number] patient w/ hx of SORENSEN cirrhosis c/b prior hepatic encelopathy currently awaiing transplant BIBA for AMS with inability to tolerate daily lactulose. Will evaluate for AMS. POC Glucose: EKG: EKG: Normal Sinus Rhythm. No overt ischemic findings and no prolongation of QTc or QRS intervals. No signs of hyperkalemia (peaked T waves, QRS widening, and MA prolongation) Workup: CBC, CMP, ammonia level, UA, ECG, troponin, UA/UCX, CT brain, XR Chest Intervention: NG tube, lactulose treatment in the ED Lab Findings: Imaging studies: Ct brain negative, XR chest wnl EKG - non-ischemic, NSR, MA/QRS/QT wnl, no ST-T wave changes, no ectopy [11:30] On reassessment, ammonia is 130s. Na of 128, Troponin of 40 -- EKG is non ischemic, will trend repeat troponin. NG tube dropped and lactulose 30mL ordered. Given worsening confusion, inability to tolerate lactulose, patient will be admitted for serial reevalution and monitoring of hepatic encephalopathy. Disposition: Admission Lab Data: Labs: Lab Results 02/19/21 02/19/21 02/19/21 Range/Units 10:36 10:52 10:55 WBC (4.0-10.0) 10^3/ uL RBC (4.1-5.3) 10^6/u L Hgb (11.7-16.6) g/dL Hct (42.0-52.0) % MCV (80-94) fL MCH (28.0-34.0) pg MCHC (30.0-36.0) g/dL RDW Plt Count (130-400) 10^3/c mm MPV (7.4-10.4) fL Neut % (Auto) % Lymph % (Auto) % [place] % (Auto) % Eos % (Auto) % Baso % (Auto) % Neut # (Auto) (1.8-7.7) 10^3/u L Lymph # (Auto) (0.8-4.8) 10^3/u L [place] # (Auto) (0.2-0.9) 10^3/u L Eos # (Auto) (0.0-0.8) 10^3/u L Baso # (Auto) (0.0-0.1) 10^3/u L Nucleated RBC % (a uto) % Nucleated RBCs # /100WBC PT (12.1-14.9) SECO NDS INR (0.8-1.2) APTT (23.9-36.7) SECO NDS Sodium (136-145) mmol/L Potassium (3.5-5.1) mmol/L Chloride (98-107) mmol/L Carbon Dioxide (22-29) mmol/L Anion Gap (5-19) BUN (8-23) mg/dL Creatinine (0.7-1.2) mg/dL GFR Calculation (90-130) mL/min Glucose (65-115) mg/dL Calculated Osmolal ity (285-295) mOsm/k g Calcium (8.5-10.5) mg/dL Total Bilirubin (0.15-1.2) mg/dL AST (0-40) U/L ALT (0-41) U/L Alkaline Phosphata se (40-130) IU/L Ammonia (16-60) umol/L Troponin T Gen 5 n g/L (0-15) ng/L Total Protein (6.6-8.7) g/dL Albumin (3.5-5.2) g/dL Globulin (1.3-4.6) g/dL Lipase (13-60) U/L Urine Color Yellow (Yellow) Urine Appearance Clear (CLEAR) Urine pH 8 H (5-7) Ur Specific Gravit y 1.015 (1.005-1.030) Urine Protein Neg (Negative) Urine Glucose (UA) Norm (Normal) Urine Ketones Negative (Negative) Urine Blood Neg (Negative) Urine Nitrate Negative (Negative) Urine Bilirubin Neg (Negative) Prot Sulfosalicyli c Acd Negative (Negative) Urine Urobilinogen 1 H (Negative) mg/dL Ur Leukocyte Denia ase Negative (Negative) SARS-CoV-2 Ag (Rap id) Negative (Negative) Blood Type A Positive Rho(D) Type Positive / 4+ Antibody Screen Negative 02/19/21 02/19/21 02/19/21 Range/Units 10:55 10:55 10:55 WBC 5.5 (4.0-10.0) 10^3/ uL RBC 3.99 L (4.1-5.3) 10^6/u L Hgb 10.6 L (11.7-16.6) g/dL Hct 32.8 L (42.0-52.0) % MCV 82.2 (80-94) fL MCH 26.6 L (28.0-34.0) pg MCHC 32.3 (30.0-36.0) g/dL RDW Not Reportable Plt Count 197 (130-400) 10^3/c mm MPV 9.4 (7.4-10.4) fL Neut % (Auto) 62.6 % Lymph % (Auto) 15.2 % [place] % (Auto) 18.2 % Eos % (Auto) 2.0 % Baso % (Auto) 1.6 % Neut # (Auto) 3.47 (1.8-7.7) 10^3/u L Lymph # (Auto) 0.8 (0.8-4.8) 10^3/u L [place] # (Auto) 1.0 H (0.2-0.9) 10^3/u L Eos # (Auto) 0.1 (0.0-0.8) 10^3/u L Baso # (Auto) 0.1 (0.0-0.1) 10^3/u L Nucleated RBC % (a uto) 0 % Nucleated RBCs # 0.0 /100WBC PT 16.00 H (12.1-14.9) SECO NDS INR 1.25 H (0.8-1.2) APTT 35.3 (23.9-36.7) SECO NDS Sodium 128 L (136-145) mmol/L Potassium 4.4 (3.5-5.1) mmol/L Chloride 93 L (98-107) mmol/L Carbon Dioxide 23 (22-29) mmol/L Anion Gap 16.4 (5-19) BUN 20 (8-23) mg/dL Creatinine 0.9 (0.7-1.2) mg/dL GFR Calculation 84.7 L (90-130) mL/min Glucose 144 H (65-115) mg/dL Calculated Osmolal ity 271 L (285-295) mOsm/k g Calcium 8.8 (8.5-10.5) mg/dL Total Bilirubin 1.4 H (0.15-1.2) mg/dL AST 38 (0-40) U/L ALT 26 (0-41) U/L Alkaline Phosphata se 74 (40-130) IU/L Ammonia (16-60) umol/L Troponin T Gen 5 n g/L (0-15) ng/L Total Protein 5.8 L (6.6-8.7) g/dL Albumin 3.3 L (3.5-5.2) g/dL Globulin 2.5 (1.3-4.6) g/dL Lipase 88 H (13-60) U/L Urine Color (Yellow) Urine Appearance (CLEAR) Urine pH (5-7) Ur Specific Gravit y (1.005-1.030) Urine Protein (Negative) Urine Glucose (UA) (Normal) Urine Ketones (Negative) Urine Blood (Negative) Urine Nitrate (Negative) Urine Bilirubin (Negative) Prot Sulfosalicyli c Acd (Negative) Urine Urobilinogen (Negative) mg/dL Ur Leukocyte Denia ase (Negative) SARS-CoV-2 Ag (Rap id) (Negative) Blood Type Rho(D) Type Antibody Screen 02/19/21 02/19/21 Range/Units 10:55 10:55 WBC (4.0-10.0) 10^3/ uL RBC (4.1-5.3) 10^6/u L Hgb (11.7-16.6) g/dL Hct (42.0-52.0) % MCV (80-94) fL MCH (28.0-34.0) pg MCHC (30.0-36.0) g/dL RDW Plt Count (130-400) 10^3/c mm MPV (7.4-10.4) fL Neut % (Auto) % Lymph % (Auto) % [place] % (Auto) % Eos % (Auto) % Baso % (Auto) % Neut # (Auto) (1.8-7.7) 10^3/u L Lymph # (Auto) (0.8-4.8) 10^3/u L [place] # (Auto) (0.2-0.9) 10^3/u L Eos # (Auto) (0.0-0.8) 10^3/u L Baso # (Auto) (0.0-0.1) 10^3/u L Nucleated RBC % (a uto) % Nucleated RBCs # /100WBC PT (12.1-14.9) SECO NDS INR (0.8-1.2) APTT (23.9-36.7) SECO NDS Sodium (136-145) mmol/L Potassium (3.5-5.1) mmol/L Chloride (98-107) mmol/L Carbon Dioxide (22-29) mmol/L Anion Gap (5-19) BUN (8-23) mg/dL Creatinine (0.7-1.2) mg/dL GFR Calculation (90-130) mL/min Glucose (65-115) mg/dL Calculated Osmolal ity (285-295) mOsm/k g Calcium (8.5-10.5) mg/dL Total Bilirubin (0.15-1.2) mg/dL AST (0-40) U/L ALT (0-41) U/L Alkaline Phosphata se (40-130) IU/L Ammonia 132 H (16-60) umol/L Troponin T Gen 5 n g/L 40 H (0-15) ng/L Total Protein (6.6-8.7) g/dL Albumin (3.5-5.2) g/dL Globulin (1.3-4.6) g/dL Lipase (13-60) U/L Urine Color (Yellow) Urine Appearance (CLEAR) Urine pH (5-7) Ur Specific Gravit y (1.005-1.030) Urine Protein (Negative) Urine Glucose (UA) (Normal) Urine Ketones (Negative) Urine Blood (Negative) Urine Nitrate (Negative) Urine Bilirubin (Negative) Prot Sulfosalicyli c Acd (Negative) Urine Urobilinogen (Negative) mg/dL Ur Leukocyte Denia ase (Negative) SARS-CoV-2 Ag (Rap id) (Negative) Blood Type Rho(D) Type Antibody Screen Discharge Plan Discharge Patient Disposition: Admitted As Inpatient Clinical Impression: Acute confusion, Altered mental status, Acute hepatic encephalopathy, Elevated troponin I level Condition: Stable Coding Level of Care Code ED Finger Lift Operator for Yehuda Little
--- NOTE | 2021-02-19 10:03 | ECG_ITS ---
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 Measurements Intervals [place] Rate: 83 P: 25 MO: 146 QRS: 35 QRSD: 81 T: 54 QT: 359 QTc: 423 Interpretive Statements SINUS RHYTHM Compared to ECG 02/16/2020 17:22:44 No significant changes Electronically Signed On 02-19-2021 12:07:02 CDT by Isaias Eduardo M.D. [id number]
--- NOTE | 2021-02-19 10:03 | XRR_ITS ---
PROCEDURE INFORMATION: Exam: XR Chest Exam date and time: 02/19/2021 10:03 AM Age: 66 years old Clinical indication: Device placement; Ng tube; Additional info: Evaluate for pna TECHNIQUE: Imaging protocol: XR of the chest. Views: 1 view. COMPARISON: CR XR chest 1V portable [id number] 03/07/2020 3:44 PM FINDINGS: Tubes, catheters and devices: There is an orogastric tube with tip off the film. Lungs: Unchanged linear atelectasis versus scarring is noted in the left lung base. The remaining lungs are clear. No lobar consolidation. Pulmonary vascularity is within normal limits. Pleural spaces: Unremarkable. No pleural effusion. No pneumothorax. Heart/Mediastinum: Unremarkable. No cardiomegaly. Bones/joints: No acute abnormality. XR/XR chest 1V portable [id number] IMPRESSION: 1. There is an orogastric tube with tip off the film. 2. Left basilar atelectasis versus scarring. The lungs are otherwise clear.
[2021-02-19 11:11] LABS: Basophils # 0.1 10^3/uL (0.0-0.1); Basophils % 1.6 %; Eosinophils # 0.1 10^3/uL (0.0-0.8); Hematocrit 32.8 % (42.0-52.0); Hemoglobin 10.6 g/dL (11.7-16.6); Lymphocytes # 0.8 10^3/uL (0.8-4.8); Lymphocytes % 15.2 %; Mean Corpuscular HGB Conc 32.3 g/dL (30.0-36.0); Mean Corpuscular Hemoglobin 26.6 pg (28.0-34.0); Mean Corpuscular Volume 82.2 fL (80-94); Mean Platelet Volume 9.4 fL (7.4-10.4); Monocytes % 18.2 %; Neutrophils # 3.47 10^3/uL (1.8-7.7); Neutrophils % 62.6 %; Nucleated Red Blood Cells % 0 %; Platelet Count 197 10^3/cmm (130-400); Positive M 1; Red Blood Count 3.99 10^6/uL (4.1-5.3); White Blood Count 5.5 10^3/uL (4.0-10.0)
[2021-02-19 11:23] LABS: INR 1.25 (0.8-1.2); Partial Thromboplastin Time 35.3 SECONDS (23.9-36.7)
[2021-02-19 11:25] LABS: Ammonia 132 umol/L (16-60)
[2021-02-19 11:29] LABS: Add Urine Microscopic? NO; Charge for UA Resulting for Rev
[2021-02-19 11:30] LABS: SARS Covid-2 Antigen Negative (Negative)
[2021-02-19 11:35] LABS: Troponin T (5th) Once 40 ng/L (0-15)
[2021-02-19 11:36] LABS: Bilirubin Urine Neg (Negative); Blood Urine Neg (Negative); Glucose Urine UA Norm (Normal); Ketones Urine Negative (Negative); Leukocyte Esterase Urine Negative (Negative); Nitrate Urine Negative (Negative); Protein Urine Neg (Negative); Specific Gravity, Urine 1.015 (1.005-1.030); Urine Appearance Clear (CLEAR); Urine Color Yellow (Yellow); Urobilinogen Urine 1 mg/dL (Negative); pH Urine 8 (5-7)
[2021-02-19 11:37] LABS: Sulfosalicylic Acid Urine Negative (Negative)
[2021-02-19 11:38] LABS: Alanine Aminotransferase 26 U/L (0-41); Albumin Level 3.3 g/dL (3.5-5.2); Alkaline Phosphatase 74 IU/L (40-130); Anion Gap 16.4 (5-19); Aspartate Amino Transferase 38 U/L (0-40); Blood Urea Nitrogen 20 mg/dL (8-23); Calcium 8.8 mg/dL (8.5-10.5); Carbon Dioxide 23 mmol/L (22-29); Chloride 93 mmol/L (98-107); Globulin 2.5 g/dL (1.3-4.6); Glomerular Filtration Rate 84.7 mL/min (90-130); Glucose 144 mg/dL (65-115); Lipase 88 U/L (13-60); Osmolality Calculated 271 mOsm/kg (285-295); Potassium 4.4 mmol/L (3.5-5.1); Sodium 128 mmol/L (136-145); Total Bilirubin 1.4 mg/dL (0.15-1.2); Total Protein 5.8 g/dL (6.6-8.7)
[2021-02-19] MEDS: lactulose oral liq 20 gm/30 mL UDC 30 GM PO (12:32)
--- NOTE | 2021-02-19 12:35 | ECG_ITS ---
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 Measurements Intervals [place] Rate: 80 P: 47 SC: 122 QRS: 48 QRSD: 83 T: 60 QT: 378 QTc: 437 Interpretive Statements SINUS RHYTHM Compared to ECG 02/19/2021 10:33:03 No significant changes Electronically Signed On 02-23-2021 7:47:22 CDT by Stephanie Abel M.D. [id number]
--- NOTE | 2021-02-19 12:47 | PM.HP ---
Providers/Chief Complaint Primary Care Provider: Floresita Bustillo DO Chief Complaint: End Stage Liver Disease Related Complications History of Present Illness Luis Muñoz is a 66 year old male with a past medical history of liver cirrhosis, alcoholic, with evidence of portal hypertension, splenomegaly, associate GI bleed, hepatic encephalopathy, ascites, chronic hyponatremia, chronic kidney disease, GERD, hypertension, pxe-gylfxuq-mddcexpzu type 2 diabetes mellitus, hypothyroidism, OSITO, who presents [facility] due to confusion. Currently patient is alert to person, to place, not to time, does not know the president, he does answer some questions appropriately, but does doze off quite frequently. Patient's is not at bedside for questioning. According to patient, he is not been feeling well for the last few days, has felt nauseous. No fevers. No chills. No cough. No shortness of breath. He does tell me that he has received all the Covid vaccines. No chest pain. Does complain of abdominal pain. No dysuria. No headache. No blurry vision. No neck pain. He tells me that he is not taking the lactulose because he felt nauseous for the last few days. No recent fall, no recent head trauma, no diarrhea, denies any blood in her stool, denies bloody cough. Work-up in the emergency room showed hyponatremia, and a serum ammonia level of 132, NG tube was placed, he is receiving lactulose. CT of the head showed no acute findings. Chest x-ray no pneumonia. UA unremarkable for UTI. Rapid Covid negative. Baseline troponin 40, sinus rhythm, no acute ST-T wave changes, no complaints of chest pain. patient recently on the fourth had a paracentesis, with 86 WBCs. Review of Systems Const: Reports: change in appetite, fatigue and malaise; Denies: fever(s), chills or body aches Card: Denies: chest pain, palpitations, irregular heart rhythm or edema Resp: Denies: dyspnea, productive cough, non-productive cough or wheezing GI: Reports: abdominal pain, nausea and vomiting; Denies: hematemesis, coffee ground emesis, hematochezia or melena : Denies: flank pain Musc: Denies: neck pain or back pain Skin/Breast: Reports: rash Neuro: Denies: headache(s), numbness in extremities, weakness in extremities or frequent falls Endo: Denies: polydipsia Ravi/Lymph: Reports: easy bruising Medications/Allergies Home Medications Medication Instructions Recorded Confirmed Last Taken Type Xifaxan 550 mg PO BID@799,199902/16/20 02/19/21 02/18/21 History betamethasone dipropionate 1 applic TOPICAL PRN 02/16/20 02/19/21 07/20/20 History levothyroxine 25 mcg PO DAILY@00 02/16/20 02/19/21 02/18/21 History lactulose 30 ml PO 5XD 03/07/20 02/19/21 02/18/21 History sucralfate [Carafate] 1 g PO Q4-5H PRN 04/10/20 02/19/21 07/29/20 History omeprazole 40 mg PO BID@799,199907/30/20 02/19/21 02/18/21 History spironolactone 50 mg tablet 50 mg PO BID tab 10/28/20 02/19/21 02/18/21 History hydrocodone-acetaminophen 1 tab PO BID PRN 02/15/21 02/19/21 Unknown History metolazone 10 mg PO DAILY 02/15/21 02/19/21 02/18/21 History potassium chloride 20 meq PO DAILY 02/15/21 02/19/21 02/18/21 History temazepam 7.5 - 15 mg PO BEDTIME PRN 02/15/21 02/19/21 Unknown History tramadol 50 mg PO BID PRN 02/15/21 02/19/21 Unknown History furosemide [Lasix] 20 mg PO DAILY PRN MDD SEE 02/19/21 02/19/21 02/17/21 History PHARMACY COMMENT Allergies Allergy/AdvReac Type Severity Reaction Status Date / Time Sulfa (Sulfonamide Allergy ALGY-Rash Verified 02/15/21 08:04 Antibiotics) PFSH Acute PFSH: Medical History Acute hyponatremia -improved with hydration, on salt tablets -suspect some degree of this will persist chronically CKD (chronic kidney disease) stage 2, GFR 60-89 ml/min -baseline Cr wnl -current renal function at baseline GERD (gastroesophageal reflux disease) Hepatic encephalopathy -noted ammonia-69; mentation at baseline -on lactulose History of cirrhosis of liver -has been following up at [facility] in [place], less frequently lately due to coronavirus pandemic -normal LFTs History of diabetes mellitus -resume oral meds Hypertension -VSS -discontinue ARB, continue Aldactone; due to low normal BP and risk of hypotension Hypothyroidism -TSH wnl -continue levothyroxine Obstructive sleep apnea -CPAP qhs Surgical History H/O esophagogastroduodenoscopy (03/08/20) History of appendectomy History of arthroscopic knee surgery History of surgery on upper extremity History of vasectomy Family History Other Diabetes Social History Smoking and tobacco status: former smoker Quit status (tobacco): has quit using tobacco Alcohol intake: former Vitals/I&O/Wt Last Vital Signs Temp 98.8 F 02/19/21 09:40 Pulse 84 02/19/21 12:39 Resp 18 02/19/21 12:39 BP 112/58 02/19/21 12:39 Pulse Ox 98 02/19/21 12:39 Weight last 48 hrs Weight 80.739 kg Physical Exam Const: COMMON NORMALS: no acute distress EXAM LIMITATIONS: altered mental status GENERAL APPEARANCE: cooperative ORIENTATION/CONSCIOUSNESS: Yes awake, Yes oriented to person, Yes oriented to place and Yes confused; not oriented to time Resp: COMMON NORMALS: normal respiratory effort, No retractions, No use of accessory muscles and clear to auscultation bilaterally Cardio: COMMON NORMALS: regular rate, regular rhythm and S1 normal heart sound present GI: COMMON NORMALS: Normal to inspection, nondistended, normoactive bowel sounds present and Soft to palpation PALPATION: Yes Tenderness to palpation present (GI) (Generalized tenderness), No Guarding due to palpation present (GI) and No Rigid due to palpation Extremity: COMMON NORMALS: no pedal edema Neuro: OTHER: Does not follow neurologic testing Data : 02/19/21 10:55 02/19/21 10:55 Micro: Microbiology 02/19/21 11:00 Blood Culture - Preliminary Blood SPECIMEN COLLECTED 02/19/21 10:55 Blood Culture - Preliminary Blood SPECIMEN COLLECTED A&P Assessment and plan (1) Acute encephalopathy: -Likely hepatic encephalopathy, ammonia level is 132, likely secondary to nausea, vomiting, inability to keep down lactulose -Some component of acute on chronic hyponatremia 128, likely severe dehydration -But does have abdominal pain, generalized Plan: -Admit to general medical floors -NG tube in place -Lactulose 5 times daily, continue rifaximin -Gentle IV hydration -Monitor serum ammonia levels, monitor mentation, neurochecks -Given abdominal pain, will start on Flagyl, and ciprofloxacin and will do a CT scan of the abdomen for spontaneous bacterial peritonitis -Follow-up blood cultures -DVT prophylaxis SCDs, pharmacologic coronary negative given history of GI bleed -Full code Status: Acute (2) Hyponatremia: Status: Acute Additional A&P Information Acute on chronic anemia, multifactorial, monitor hemoglobin Liver cirrhosis secondary to alcohol, with hepatic encephalopathy, splenomegaly, portal hypertension, GI bleed -Continue Lasix, metolazone, spironolactone Hypothyroidism continue levothyroxine Noninsulin-dependent type 2 diabetes mellitus, E1 6.3, low-dose sliding scale Attestations Medical Necessity Statement*: Patient course hospitalization, inpatient, greater than 2 midnights, for acute encephalopathy secondary to hyperammonemia, hyponatremia, possible SBP Coding Level of Care Code 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
[2021-02-19 13:27] LABS: C Reactive Protein 10.1 mg/L (0.0-4.9); Lactic Sepsis W/Reflex 2.4 mmol/L (0.5-2.2)
[2021-02-19 13:33] LABS: Procalcitonin 0.08 ng/mL (0-0.5)
[2021-02-19 14:03] LABS: Reflex Lactate Order REFLEX LACTIC ORDERD
--- NOTE | 2021-02-19 14:18 | CTR_ITS ---
PROCEDURE INFORMATION: Exam: CT Abdomen And Pelvis Without Contrast Exam date and time: 02/19/2021 2:18 PM Age: 66 years old Clinical indication: Abdominal pain; Generalized; Prior surgery; Surgery date: 6+ months; Surgery type: Appy; Patient HX: C/O abd pain and nausea; Additional info: Abdominal pain TECHNIQUE: Imaging protocol: Computed tomography of the abdomen and pelvis without contrast. Sagittal and coronal reformatted images were created and reviewed. Radiation optimization: All CT scans at this facility use at least one of these dose optimization techniques: automated exposure control; mA and/or kV adjustment per patient size (includes targeted exams where dose is matched to clinical indication); or iterative reconstruction. COMPARISON: CT abdomen pelvis w con* [id number] 04/10/2020 11:21 AM RADIATION DOSE METRICS: Total DLP (mGy-cm): 1680.56 FINDINGS: Limitations: Evaluation of solid organs and vasculature is limited without intravenous contrast. Tubes, catheters and devices: There is an enteric tube with the tip in the body of the stomach. Lungs: Visualized lungs are clear. Calcified granuloma in the right lower lobe. Heart: Visualized heart is normal in size. Liver: Stable nodular contour of the liver. Gallbladder and bile ducts: Mildly increased density layering in the gallbladder. No gallbladder wall thickening. Pancreas: The pancreas is unremarkable. No pancreatic ductal dilatation. Spleen: Stable mild enlargement of the spleen measuring 15.2 cm in length (series 602, image 24). Adrenal glands: The right and left adrenal glands are unremarkable. Kidneys and ureters: The right kidney is unremarkable. Nonobstructing stone in the left kidney measuring 1.9 mm. The right and left ureters are unremarkable. Stomach and bowel: Scattered diverticula in the sigmoid colon. No evidence for diverticulitis. There is wall thickening of multiple small bowel loops and portions of the colon, likely secondary to edema from ascites. Appendix: Appendix not definitely visualized. No inflammatory changes in the pericecal region however. Intraperitoneal space: Stable large volume ascites and diffuse mesenteric edema. No free intraperitoneal air. No loculated fluid collections to suggest an abscess. Vasculature: Mild atherosclerotic calcification in the visualized coronary arteries. Stable mild atherosclerotic calcifications in the visualized arteries. No evidence for aortic aneurysm. Stable small caliber varices in the upper abdomen. Lymph nodes: No lymphadenopathy. Urinary bladder: Unremarkable as visualized. Reproductive: Nonspecific parenchymal calcifications in the prostate gland. Bones/joints: Moderate degenerative changes at both the right and left hips. Moderate degenerative changes of the right and left sacroiliac joints. Multilevel degenerative changes of varying severity in the visualized spine. Moderate spinal canal stenosis at L3-L4 and L4-L5. Mild spinal canal stenosis at L5-S1. Multilevel foraminal stenosis of varying severity in the lumbar spine. Soft tissues: No acute abnormality in the extra-abdominal soft tissues. CT/CT abdomen pelvis wo con [id number] IMPRESSION: 1. Stable changes consistent with cirrhosis and portal hypertension with mild splenomegaly, small caliber varices, and large volume ascites/mesenteric edema. 2. There is wall thickening of multiple small bowel loops and portions of the colon, likely secondary to edema from ascites. 3. There is an enteric tube with the tip in the body of the stomach. 4. Mildly increased density layering in the gallbladder. This could represent noncalcified gallstones and/or gallbladder sludge. Ultrasound of the gallbladder may be obtained for further evaluation as clinically indicated. 5. Nonobstructing left renal stone. 6. Scattered diverticula in the sigmoid colon. No evidence for diverticulitis. 7. Incidental/nonacute findings are listed in the report. Radiation Dose CTDIVOL = (mGy): DLP = 1680.56 (mGy-cm)
[2021-02-19 14:59] LABS: Thyroid Stimulating Hormone 3.16 uIU/mL (0.27-4.20)
[2021-02-19 15:13] LABS: Lactic Acid level (Lactate) 1.9 mmol/L (0.5-2.2)
[2021-02-19] MEDS: famotidine 20 mg/2 mL INJ IVP (15:37)
[2021-02-19] MEDS: metroNIDAZOLE IV 500 MG/100 ML PREMIX 100 MG IV ×2 (15:46→23:23)
[2021-02-19] MEDS: dextrose 5%-sod chloride 0.9% 1,000 ML 75 ML IV (15:46)
[2021-02-19] MEDS: ciprofloxacin 400 MG/200 ML PREMIX 200 MG IV (17:19)
[2021-02-19 17:34] LABS: Glucose Point of Care 139 mg/dL (70-110)
[2021-02-19] MEDS: lactulose oral liq 20 gm/30 mL UDC PO ×2 (18:41→21:34)
[2021-02-19] MEDS: spironolactone 25 mg Tablet 50 MG PO (18:41)
--- NOTE | 2021-02-19 19:00 | PC.NURSE ---
Message sent to Dr Will, [phone] Do you want his meds put in the NG tube. he said that is what they were doing with the lactulose in ER. just checking. Read 02/19/21, 17:51 Dr Will's reply-Yes
[2021-02-19] MEDS: pantoprazole DR 40 mg Tablet PO (21:34)
[2021-02-20] VITALS (10 sets, daily range): BP systolic 97–112; BP diastolic 62–86; PULSE 78–95; RESP 18; TEMP 36.4–37; O2SAT 96–100
[2021-02-20] MEDS: famotidine 20 mg/2 mL INJ IVP ×2 (01:43→14:42)
[2021-02-20 02:59] LABS: Glucose Point of Care 225 mg/dL (70-110)
[2021-02-20] MEDS: ciprofloxacin 400 MG/200 ML PREMIX 200 MG IV ×2 (03:50→17:23)
[2021-02-20] MEDS: lactulose oral liq 20 gm/30 mL UDC PO ×5 (05:12→22:26)
--- NOTE | 2021-02-20 06:35 | PC.NURSE ---
Shift Note Frequent safety and comfort rounds continue. Orders and/or nursing care completed as indicated. Patient monitored for response to intervention and treatment(s). Education provided includes not pulling on the NG tube and IV. Patient verbalized understanding. Will continue to monitor.
[2021-02-20] MEDS: metroNIDAZOLE IV 500 MG/100 ML PREMIX 100 MG IV ×3 (06:47→22:26)
[2021-02-20 06:49] LABS: Basophils # 0.1 10^3/uL (0.0-0.1); Basophils % 1.3 %; Eosinophils # 0.1 10^3/uL (0.0-0.8); Eosinophils % 2.4 %; Hematocrit 32.9 % (42.0-52.0); Hemoglobin 10.8 g/dL (11.7-16.6); Lymphocytes # 0.6 10^3/uL (0.8-4.8); Lymphocytes % 11.5 %; Mean Corpuscular HGB Conc 32.8 g/dL (30.0-36.0); Mean Corpuscular Hemoglobin 27.1 pg (28.0-34.0); Mean Corpuscular Volume 82.7 fL (80-94); Mean Platelet Volume 9.1 fL (7.4-10.4); Monocytes # 0.9 10^3/uL (0.2-0.9); Monocytes % 16.6 %; Neutrophils # 3.67 10^3/uL (1.8-7.7); Neutrophils % 67.8 %; Nucleated Red Blood Cells % 0 %; Platelet Count 168 10^3/cmm (130-400); Red Blood Count 3.98 10^6/uL (4.1-5.3); White Blood Count 5.4 10^3/uL (4.0-10.0)
[2021-02-20 06:53] LABS: Glucose Point of Care 237 mg/dL (70-110)
[2021-02-20 07:01] LABS: INR 1.25 (0.8-1.2)
[2021-02-20 07:05] LABS: Alanine Aminotransferase 24 U/L (0-41); Albumin Level 3.1 g/dL (3.5-5.2); Alkaline Phosphatase 64 IU/L (40-130); Anion Gap 16.1 (5-19); Aspartate Amino Transferase 35 U/L (0-40); Blood Urea Nitrogen 18 mg/dL (8-23); Calcium 8.6 mg/dL (8.5-10.5); Carbon Dioxide 22 mmol/L (22-29); Chloride 96 mmol/L (98-107); Globulin 2.5 g/dL (1.3-4.6); Glomerular Filtration Rate 113.2 mL/min (90-130); Glucose 157 mg/dL (65-115); Magnesium 1.7 mg/dL (1.7-2.3); Osmolality Calculated 275 mOsm/kg (285-295); Phosphorus 2.9 mg/dL (2.5-4.5); Potassium 4.1 mmol/L (3.5-5.1); Sodium 130 mmol/L (136-145); Total Bilirubin 1.8 mg/dL (0.15-1.2); Total Protein 5.6 g/dL (6.6-8.7)
[2021-02-20 07:06] LABS: Ammonia 77 umol/L (16-60)
[2021-02-20 08:17] LABS: Add RBC Morph Yes; Slide Review Slide Review Perform
[2021-02-20 08:18] LABS: Hypochromasia 1+; Poikilocytosis 1+
[2021-02-20 08:19] LABS: Anisocytosis 2+; Macrocytosis 1+; RBC Morph Comp Yes
[2021-02-20] MEDS: potassium chloride ER 20 mEq Tablet PO (09:12)
[2021-02-20] MEDS: metOLazone 5 MG Tablet 10 MG PO (09:13)
[2021-02-20] MEDS: levothyroxine 25 mcg Tablet PO (09:13)
[2021-02-20] MEDS: pantoprazole DR 40 mg Tablet PO ×2 (09:14→20:52)
[2021-02-20] MEDS: spironolactone 25 mg Tablet 50 MG PO ×2 (09:16→17:24)
[2021-02-20 12:05] LABS: Glucose Point of Care 211 mg/dL (70-110)
--- NOTE | 2021-02-20 12:49 | P.PN_ITS ---
Subjective Subjective: Interval history: This morning patient is alert oriented x3, follows all commands, he tells me he is feeling better, but does feel a bit groggy, he is able to take an oral liquids, NG tube is in place, no nausea, no vomiting, no headache, blurry vision, no fevers Vitals/I&O/Wt Last Vital Signs Temp 98.1 F 02/20/21 12:00 Pulse 94 02/20/21 12:00 Resp 18 02/20/21 12:00 BP 112/72 02/20/21 12:00 Pulse Ox 98 02/20/21 12:00 02/19/21 02/20/21 02/20/21 22:59 06:59 14:59 Intake Total 300 / 300 300 / 600 100 / 100 Output Total 450 / 450 250 / 250 Balance -150 / -150 300 / 150 -150 / -150 Weight last 48 hrs Weight 80.422 kg Weight 80.739 kg Physical Exam Const: COMMON NORMALS: no acute distress and patient oriented x3 Resp: COMMON NORMALS: normal respiratory effort, No retractions, No use of accessory muscles and clear to auscultation bilaterally AUSCULTATION: clear to auscultation bilaterally Cardio: COMMON NORMALS: regular rate, regular rhythm, S1 normal heart sound present and S2 normal heart sound present RATE: regular rate RHYTHM: regular rhythm HEART SOUNDS: S1 normal heart sound present and S2 normal heart sound present GI: COMMON NORMALS: Normal to inspection, nondistended, normoactive bowel sounds present, Soft to palpation and non-tender PALPATION: Yes Soft to palpation Extremity: COMMON NORMALS: no pedal edema OTHER: NG tube in place Neuro: COMMON NORMALS: patient oriented x3 Data : 02/20/21 06:38 02/20/21 06:38 Micro: Microbiology 02/19/21 11:00 Blood Culture - Preliminary Blood NEGATIVE TO DATE 02/19/21 10:55 Blood Culture - Preliminary Blood NEGATIVE TO DATE A&P Assessment and plan (1) Acute encephalopathy: -Likely hepatic encephalopathy, ammonia level is 77, likely secondary to nausea, vomiting, inability to keep down lactulose -Some component of acute on chronic hyponatremia 130, improving, likely secondary dehydration -But does have abdominal pain, concerns for SBP, although unlikely -CT scan of the abdomen pelvis did show ascites, Plan: -Admit to general medical floors -Discontinue NG tube -Lactulose 5 times daily, continue rifaximin -Stop IV hydration -Monitor serum ammonia levels, monitor mentation, neurochecks -Had initial abdominal pain, and confusion, CT scan did show ascites, remains afebrile, blood cultures so far unremarkable, for now will continue Flagyl, and ciprofloxacin, although likelihood of SBP is fairly unlikely -PT OT -Follow-up blood cultures -DVT prophylaxis SCDs, pharmacologic coronary negative given history of GI bleed -Full code Plan for today stop fluids, encourage oral hydration, continue lactulose, continue rifaximin, continue antibiotics, PT OT, anticipate discharge the next 24 hours Status: Acute (2) Hyponatremia: Status: Acute Additional A&P Information Acute on chronic anemia, multifactorial, monitor hemoglobin Liver cirrhosis secondary to alcohol, with hepatic encephalopathy, splenomegaly, portal hypertension, GI bleed -Continue Lasix, metolazone, spironolactone Hypothyroidism continue levothyroxine Noninsulin-dependent type 2 diabetes mellitus, E1 6.3, low-dose sliding scale Attestations Medical Necessity Statement*: Patient requires hospitalization for acute encephalopathy secondary to elevated ammonia levels, hyponatremia, possible SBP Coding Level of Care Code 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 [place] Diagnoses Acute encephalopathy G93.40 Hyponatremia E87.1
[2021-02-20 14:08] LABS: Coronavirus Test Green County Not Detected
[2021-02-20 17:16] LABS: Glucose Point of Care 108 mg/dL (70-110)
--- NOTE | 2021-02-20 19:04 | PC.NURSE ---
Nurse notified that NG tube came out. Nurse observed NG tube on patient's bed. Patient states he coughed and it came out. Late entry from 1100.
[2021-02-21] VITALS: BP 115/68; PULSE 83; RESP 18; TEMP 37.1; O2SAT 98
[2021-02-21 03:14] LABS: Basophils # 0.1 10^3/uL (0.0-0.1); Basophils % 2.2 %; Eosinophils # 0.2 10^3/uL (0.0-0.8); Eosinophils % 3.1 %; Hematocrit 30.8 % (42.0-52.0); Hemoglobin 10.1 g/dL (11.7-16.6); Lymphocytes # 0.9 10^3/uL (0.8-4.8); Lymphocytes % 16.7 %; Mean Corpuscular HGB Conc 32.8 g/dL (30.0-36.0); Mean Corpuscular Hemoglobin 27.2 pg (28.0-34.0); Monocytes # 1.1 10^3/uL (0.2-0.9); Monocytes % 19.5 %; Neutrophils % 58.1 %; Nucleated Red Blood Cells % 0 %; Platelet Count 167 10^3/cmm (130-400); Red Blood Count 3.71 10^6/uL (4.1-5.3); White Blood Count 5.5 10^3/uL (4.0-10.0)
[2021-02-21] MEDS: famotidine 20 mg/2 mL INJ IVP (03:15)
[2021-02-21 03:24] VITALS: BP 107/68; PULSE 82; RESP 18; TEMP 37.1; O2SAT 99
[2021-02-21 03:35] LABS: Add RBC Morph No; Slide Review Slide Review Perform
[2021-02-21 03:36] LABS: Alanine Aminotransferase 24 U/L (0-41); Alkaline Phosphatase 68 IU/L (40-130); Ammonia 40 umol/L (16-60); Anion Gap 13.3 (5-19); Aspartate Amino Transferase 37 U/L (0-40); Blood Urea Nitrogen 13 mg/dL (8-23); Calcium 8.7 mg/dL (8.5-10.5); Carbon Dioxide 22 mmol/L (22-29); Chloride 100 mmol/L (98-107); Globulin 2.4 g/dL (1.3-4.6); Glucose 118 mg/dL (65-115); Magnesium 1.6 mg/dL (1.7-2.3); Osmolality Calculated 273 mOsm/kg (285-295); Potassium 4.3 mmol/L (3.5-5.1); Sodium 131 mmol/L (136-145); Total Bilirubin 1.9 mg/dL (0.15-1.2); Total Protein 5.4 g/dL (6.6-8.7)
[2021-02-21] MEDS: ciprofloxacin 400 MG/200 ML PREMIX 200 MG IV (05:07)
[2021-02-21] MEDS: lactulose oral liq 20 gm/30 mL UDC PO ×2 (05:07→10:11)
[2021-02-21 05:41] LABS: INR 1.43 (0.8-1.2)
[2021-02-21 06:00] VITALS: PULSE 84
[2021-02-21] MEDS: metroNIDAZOLE IV 500 MG/100 ML PREMIX 100 MG IV (06:08)
[2021-02-21 06:34] LABS: Glucose Point of Care 175 mg/dL (70-110)
[2021-02-21 08:00] VITALS: BP 116/71; PULSE 86; RESP 18; TEMP 36.6; O2SAT 99
--- NOTE | 2021-02-21 08:29 | PC.NURSE ---
Shift Note Frequent safety and comfort rounds continue. Orders and/or nursing care completed as indicated. Patient monitored for response to intervention and treatment(s). Education provided includes lab values and normal ranges, oxygen safety, iv pump and medication administration. Patient and/or insurance follow up representative vebalized undertanding. Will continue to monitor.
[2021-02-21] MEDS: levothyroxine 25 mcg Tablet PO (08:46)
[2021-02-21] MEDS: spironolactone 25 mg Tablet 50 MG PO (08:46)
[2021-02-21] MEDS: metOLazone 5 MG Tablet 10 MG PO (08:46)
[2021-02-21] MEDS: potassium chloride ER 20 mEq Tablet PO (08:47)
[2021-02-21] MEDS: pantoprazole DR 40 mg Tablet PO (08:47)
[2021-02-21 11:21] VITALS: BP 114/74; PULSE 91; RESP 18; TEMP 36.4; O2SAT 99
[2021-02-21 11:55] LABS: Glucose Point of Care 175 mg/dL (70-110)
--- NOTE | 2021-02-21 14:20 | PC.NURSE ---
Discharge Note Patient discharged to home via private vehicle accompanied by . Discharge instructions reviewed with patient and/or statement services representative. Mobile pharmacy medications and/or prescriptions provided. Belongings/home medications returned.
[2021-02-21 14:31] VITALS: BP 114/74; PULSE 91; RESP 18; TEMP 36.4; O2SAT 99
--- NOTE | 2021-02-21 21:08 | P.DS_ITS ---
Discharge Providers Date of Admission: 02/19/21 12:30 Date of Discharge: February 21, 2021 Attending Provider at Admission: Per Will MD Attending Provider at Discharge: Latrice Randhawa Primary Care Provider: Floresita Bustillo DO Diagnoses at Discharge Discharge Diagnosis (1) Acute encephalopathy: Status: Acute (2) Hyponatremia: Status: Acute Reason for Visit Reason for Visit: End Stage Liver Disease Related Complications Hospital Course Hospital Course 66 year old male with a past medical history of liver cirrhosis, alcoholic, with evidence of portal hypertension, splenomegaly, associate GI bleed, hepatic encephalopathy, ascites, chronic hyponatremia, chronic kidney disease, GERD, hypertension, kea-vapsnps-iyctpnihz type 2 diabetes mellitus, hypothyroidism, OSITO, who presents [facility] due to confusion. Currently patient is alert to person, to place, not to time, does not know the president, he does answer some questions appropriately, but does doze off quite frequently. Patient's is not at bedside for questioning. According to patient, he is not been feeling well for the last few days, has felt nauseous. No fevers. No chills. No cough. No shortness of breath. He does tell me that he has received all the Covid vaccines. No chest pain. Does complain of abdominal pain. No dysuria. No headache. No blurry vision. No neck pain. He tells me that he is not taking the lactulose because he felt nauseous for the last few days. No recent fall, no recent head trauma, no diarrhea, denies any blood in her stool, denies bloody cough. Work-up in the emergency room showed hypo natremia, and a serum ammonia level of 132, NG tube was placed, he is receiving lactulose. CT of the head showed no acute findings. Chest x-ray no pneumonia. UA unremarkable for UTI. Rapid Covid negative. Baseline troponin 40, sinus rhythm, no acute ST-T wave changes, no complaints of chest pain. patient recently on the fourth had a paracentesis, with 86 WBCs.Upon admission to the hospital patient was restarted on lactulose. Addition was started on Xifaxan. patient was back to baseline at the time i assumed care of patient. Stable for discharge. Physical Exam Const: COMMON NORMALS: no acute distress and patient oriented x3 EXAM LIMITATIONS: altered mental status GENERAL APPEARANCE: cooperative ORIENTATION/CONSCIOUSNESS: Yes awake, Yes oriented to person, Yes oriented to place and Yes confused; not oriented to time Resp: COMMON NORMALS: normal respiratory effort, No retractions, No use of accessory muscles and clear to auscultation bilaterally AUSCULTATION: clear to auscultation bilaterally Cardio: COMMON NORMALS: regular rate, regular rhythm, S1 normal heart sound present and S2 normal heart sound present RATE: regular rate RHYTHM: regular rhythm HEART SOUNDS: S1 normal heart sound present and S2 normal heart sound present GI: COMMON NORMALS: Normal to inspection, nondistended, normoactive bowel sounds present, Soft to palpation and non-tender PALPATION: Yes Soft to palpation, Yes Tenderness to palpation present (GI) (Generalized tenderness), No Guarding due to palpation present (GI) and No Rigid due to palpation Extremity: COMMON NORMALS: no pedal edema OTHER: NG tube in place Neuro: COMMON NORMALS: patient oriented x3 SENSORIUM/ORIENTATION: Yes oriented to person, Yes oriented to place and No oriented to time OTHER: Does not follow neurologic testing Discharge Data Data Completed and Pending: Completed Studies During Hospitalization Category Date Time Status CT abdomen pelvis wo con [id number] Urge nt Cat Scan 02/19/21 14:[address] head wo con* [id number] Urgent Cat Scan 02/19/21 10:02 Completed XR chest 1V cassie ble [id number] Stat Exams 02/19/21 10:03 Completed Pending at discharge Category Date Time Status Blood Culture Sta t Lab 02/19/21 11:00 Results Vitals: Last Vital Signs Temp 97.6 F 02/21/21 14:31 Pulse 91 02/21/21 14:31 Resp 18 02/21/21 14:31 BP 114/74 02/21/21 14:31 Pulse Ox 99 02/21/21 14:31 Discharge Plan Discharge Patient Disposition: Home Condition: Stable Prescriptions: Continued levothyroxine 25 mcg tablet 25 mcg PO DAILY@0800 RF: 0 betamethasone dipropionate 0.05 % ointment 1 applic TOPICAL PRN RF: 0 Xifaxan 550 mg tablet 550 mg PO BID@0800,1999 RF: 0 spironolactone 50 mg tablet 50 mg PO BID RF: 0 sucralfate [Carafate] 1 gram Tablet 1 g PO Q4-5H PRN (Reason: Pain) RF: 0 omeprazole 20 mg tablet,delayed release (DR/EC) 40 mg PO BID@0800,2000 RF: 0 lactulose 10 gram/15 mL solution 30 ml PO 5XD RF: 0 tramadol 50 mg Tablet 50 mg PO BID PRN (Reason: Pain) RF: 0 temazepam 7.5 mg Capsule 7.5 - 15 mg PO BEDTIME PRN (Reason: Insomnia) RF: 0 hydrocodone-acetaminophen 7.5-325 mg Tablet 1 tab PO BID PRN (Reason: Pain) RF: 0 metolazone 10 mg Tablet 10 mg PO DAILY RF: 0 potassium chloride 20 mEq Tablet Extended Release 20 meq PO DAILY RF: 0 Lasix 20 mg Tablet 20 mg PO DAILY MDD SEE PHARMACY COMMENT PRN (Reason: Edema) RF: 0 Discharge Orders: Discharge Order (Routine); Ordered 02/21/21 Ordered By: Latrice Randhawa Referrals: Floresita Bustillo DO [Primary Care Provider] - 4-7 days (* Please call and make a follow up appointment with Dr. Bustillo to occur in 4 to 7 days. [phone]) Discharge Diet: Advance as tolerated Discharge Activity: Increase activity as tolerated Patient Instructions: Lactulose (By mouth), Opioid Safety Discharge Attestations Time Spent in Discharge Care*: greater than 30 min Specific Discharge Activities: educating patient, discussing with pillowcase cutter/social workers/dc planners, documenting/other paperwork and evaluating patient/reviewing data Status at Discharge: Cognitive status at discharge: cognitively intact , Behavioral status at discharge: cooperative and independent in ADL's , Overall status at discharge: patient is back to baseline Quality Metrics Clinical Quality Measures During this hospital stay, did patient experience: None Coding Level of Care Code Acute Chg FW DC note Exam Detailed Diagnoses Acute encephalopathy G93.40 Hyponatremia E87.1
--- NOTE | 2021-02-27 11:42 | PC.SOCIAL ---
Patient follow up discharge call made. Patient saw Dr. Bustillo on Saturday, 02-24. Has follow up labs with Dr. Parham, tomorrow, 02-28. No new medications prescribed at discharge.
== END 2021-02-21 14:32 | disposition home or self-care (01) | DRG 442 ==
LOC: ER 10:14 → MEDSURG 12:50
PROVIDERS: Admitting Provider Family Medicine; Emergency Provider Emergency Medicine; PCP Family Medicine; Visit Provider Hospitalist
DX: K72.90 Hepatic failure, unspecified without coma (principal); E87.1 Hypo-osmolality and hyponatremia; N39.0 Urinary tract infection, site not specified; K76.6 Portal hypertension; I12.9 Hypertensive chronic kidney disease with stage 1 through stage 4 chronic kidney disease, or unspecified chronic kidney disease; N18.9 Chronic kidney disease, unspecified; K21.9 Gastro-esophageal reflux disease without esophagitis; E03.9 Hypothyroidism, unspecified; G47.33 Obstructive sleep apnea (adult) (pediatric); K70.30 Alcoholic cirrhosis of liver without ascites; D63.8 Anemia in other chronic diseases classified elsewhere; E86.0 Dehydration; E11.9 Type 2 diabetes mellitus without complications; Z90.49 Acquired absence of other specified parts of digestive tract; Z98.52 Vasectomy status; Z87.891 Personal history of nicotine dependence; Z88.2 Allergy status to sulfonamides; Z79.890 Hormone replacement therapy; Z88.3 Allergy status to other anti-infective agents; Z20.822 Contact with and (suspected) exposure to COVID-19
CPT/HCPCS: 36415; 36416; 70450; 71045; 74176; 80053; 81003; 82140; 82962; 83605; 83690; 83735; 84100; 84145; 84443; 84484; 85025; 85610; 85730; 86140; 86850; 86900; 87040; 87426; 87635; 93005; 96372; 97110; 97161; 97165; 97530; 99285; J0744; J1815; J3490; S0030

== ENCOUNTER 2021-02-27 13:04 | Outpatient (CLI) | payer MEDICARE, OTHER, SELFPAY ==
[2021-02-27 13:55] LABS: Basophils % 0.2 %; Eosinophils # 0.1 10^3/uL (0.0-0.8); Eosinophils % 1.7 %; Hematocrit 30.1 % (42.0-52.0); Hemoglobin 10.2 g/dL (11.7-16.6); Lymphocytes # 0.8 10^3/uL (0.8-4.8); Lymphocytes % 9.8 %; Mean Corpuscular HGB Conc 33.9 g/dL (30.0-36.0); Mean Corpuscular Hemoglobin 27.9 pg (28.0-34.0); Mean Corpuscular Volume 82.2 fl (80-94); Mean Platelet Volume 9.3 fL (7.4-10.4); Monocytes # 1.4 10^3/uL (0.2-0.9); Monocytes % 17.4 %; Neutrophils # 5.73 10^3/uL (1.8-7.7); Neutrophils % 70.5 %; Nucleated Red Blood Cells % 0 %; Platelet Count 203 10^3/cmm (130-400); Red Blood Count 3.66 10^6/uL (4.1-5.3); White Blood Count 8.1 10^3/uL (4.0-10.0)
[2021-02-27 14:04] LABS: Alanine Aminotransferase 37 U/L (0-41); Albumin Level 3.3 g/dL (3.5-5.2); Alkaline Phosphatase 92 IU/L (40-130); Anion Gap 16.6 (5-19); Aspartate Amino Transferase 53 U/L (0-40); Blood Urea Nitrogen 28 mg/dL (8-23); Calcium 8.6 mg/dL (8.5-10.5); Carbon Dioxide 20 mmol/L (22-29); Chloride 92 mmol/L (98-107); Ferritin 160 ng/mL (30-400); Globulin 2.9 g/dL (1.3-4.6); Glomerular Filtration Rate 84.7 mL/min (90-130); Glucose 264 mg/dL (65-115); Iron 20 ug/dL (59-158); Osmolality Calculated 271 mOsm/kg (285-295); Percent Saturation 7.2 % (20-50); Potassium 5.6 mmol/L (3.5-5.1); Sodium 123 mmol/L (136-145); Total Bilirubin 0.8 mg/dL (0.15-1.2); Total Iron Binding Capacity 275 mcg/dl; Total Protein 6.2 g/dL (6.6-8.7); Unsaturated Iron Binding 255 ug/dL (112-347)
[2021-02-27 14:07] LABS: Slide Review Slide Review Perform
[2021-02-27] MEDS: ferric carboxy (IVPB) 750 MG in sodium chloride 0.9% (100 ml) 100 ML 345 MG IV (15:51)
--- NOTE | 2021-02-27 17:50 | ONC FU_ITS ---
Dr. Parham Patient Follow-Up Note Patient: Luis Muñoz Unit #: [id number]: 1955 Dicatated By: Dima Parham M.D.Date of Visit:Feb 27, 2021 Onc Med Follow-up/Prog Note Chief Complaint: Anemia. History of Present Illness: This is a 65 year-old man with moderately severe anemia. I had seen him initially in February 2019 in regard to a mild thrombocytopenia, platelet count 104,000. At that time he was just borderline anemic with hemoglobin 12.0 g with normal red cell indices. His serum iron studies, though, did show low transferrin saturation at 12.2% and his ferritin was relatively low at 58 ng/mL. He had mildly elevated total bilirubin and mildly elevated SGOT/SGPT levels, and his CT abdomen did show findings consistent with cirrhosis of the liver with associated portal hypertension and splenomegaly. With those findings, he was referred to a supervisor real estate office for further management. In regard to the iron deficiency, he had previously been anemic, and he had undergone EGD and colonoscopy in July 2018. The colonoscopy was unrevealing. The EGD showed diffuse, severe chronic gastritis. He subsequently had been on treatment with a PPI and he also began on oral iron supplementation with ferrous sulfate. His follow-up laboratory studies on 12/23/2018 included CBC which showed his hemoglobin borderline at 13.2 g with white blood cell count mildly decreased at 4700 and platelet count low at 100,000. The MCV was 92. The serum iron studies showed low normal transferrin saturation at 22% and the ferritin was normal at 75.5 ng/mL. With his hemoglobin adequate at 12 g, he was recommended to continue with the oral iron supplementation. Subsequent to my initial visit with him he had developed moderately severe anemia. In February 2020 he was admitted to the hospital with acute GI bleeding. His hemoglobin had dropped to 8 g. There was no active bleeding noted at that time. He did not require transfusion. His subsequent EGD showed chronic gastropathy in the antrum. There was no active bleeding noted. In July 2020 he was admitted to the hospital with acute hepatic encephalopathy. His hemoglobin at that time dropped to as low as 7.0 g, but he still did not require transfusion. During this time, he underwent esophageal banding on 2 occasions and he also had therapeutic paracentesis. During his subsequent follow-up with Dr. Bustillo he had remained moderately anemic. His laboratory studies from 11/21/2020 included CBC showing hemoglobin 9.6 g with hematocrit 32.6%. The red cell indices were hypochromic/microcytic with MCV 77 and MCH 22. The white blood cell count was 6000 and the platelet count was 228,000. Comprehensive metabolic profile showed normal renal function with BUN 12 and creatinine 0.92 mg/dL. Bilirubin was just borderline high at 1.0 mg/dL. The other liver enzymes were normal. His earlier studies from 11/14/2020 included serum iron studies which showed normal transferrin saturation at 38% and elevated B12 level 1401 pg/mL. TSH was normal at 2.82 ???IU/mL. I had seen him for a follow-up visit on 12/15/2020. At that point he was complaining of fatigue and lethargy. He had very limited activity. His hemoglobin is down to 8.9 g with hypochromic/microcytic red cell indices. His transferrin saturation was reported to be high, but on a repeat study it was low at 6.5%. He was then given parenteral iron replacement with 2 infusions of Injectafer. He is seen for a follow-up visit. He experienced no adverse effects from the iron infusions. His indicates that 4 days after the second infusion he did notice a significant improvement in his energy. He had subsequently developed increasing abdominal distention, and on 02/15/2021 he underwent therapeutic paracentesis with removal of 10 L of ascitic fluid. On 02/20/2020 when he was admitted to the hospital after presenting to the emergency room with confusion. He apparently had been having difficulty taking his lactulose due to nausea/vomiting. His ammonia was found to be significantly elevated. He was given lactulose by NG tube, and his symptoms improved. He is seen for a follow-up visit. He has been feeling a little better generally following discharge from the hospital. He still has limited activity, but he is ambulatory. ECOG score is 2. Appetite is fair. He does not have fever or night sweats. He has not had sore mouth or throat. He was short of breath with the ascites, but that has improved now. He has just occasional cough. He does not complain of chest pain. He still has some nausea. His bowels are loose with the lactulose. He has not been aware of any blood in the stool. Bladder function has been okay. He has pain in his back and shoulders, that is chronic. He does not complain of headache or dizziness. He is not having numbness/paresthesia or other focal neurologic symptoms. He has developed an intention tremor, though. Medications: Aldactone 1 (50 mg) Tablet Oral daily, metOLazone (10 mg) Tablet Oral b.i.d., Metoprolol Tartrate 1 Tablet (of 25 mg) Oral b.i.d., Omeprazole 1 Capsule (of 20 mg) Capsule Delayed Release Oral daily, Synthroid 1 Tablet (of 25 mcg) Oral daily Allergies: Sulfa Antibiotics Vital Signs: Performed on Feb 27, 2021 13:25 Height - 74.00 in Weight - 180.4 lbs (LOW) BSA - 2.08 sq.m BMI - 23.16 Temperature - 98.5 F Pulse - 64 /min Respiration - 18 /min BP - 93/49 mm(hg) O2 Sat - 97 % Pain - 3 Fatigue - 8 Physical Examination: Constitutional - He appears generally weak, Eyes - Sclerae nonicteric. Conjunctivae clear, ENMT - No lesions noted in the oral cavity, Hematologic/Lymphatic - No cervical, clavicular, or axillary adenopathy, Respiratory - Lungs are clear with good air movement bilaterally, Cardiovascular - Heart rhythm is regular. There is a II/ systolic murmur. There is no gallop or rub noted, Abdomen - Mildly distended but soft. Liver and spleen are not overtly enlarged. There is no abdominal mass noted and there is no inguinal adenopathy, Extremities - There are mild venous stasis changes in both legs. There is no edema. He has fairly extensive purpura, Neurologic - No focal neurologic deficits noted. Lab/Imaging: Test performed on Feb 27, 2021 13:05 Ferritin 160 ng/mL Iron 20 mcg/dL Sodium 123 mmol/L Iron Binding Capacity (TIBC) 275 mcg/dl Potassium 5.6 mmol/L % Iron Saturation 7.2 % Chloride 92 mmol/L CO2 20 mmol/L UIBC 255 mcg/dL Anion Gap 16.6 BUN 28 mg/dL Creatinine 0.9 mg/dL Cr Clearance (Est) 94.7100 mL/min eGFR 84.7 mL/min Glucose 264 mg/dL Osmolality - Calculated 271 mOsm/kg Calcium 8.6 mg/dL Protein, Total 6.2 g/dL Albumin 3.3 g/dL Globulin 2.9 g/dL Bilirubin, Total 0.8 mg/dL ALT (SGPT) 37 U/L AST (SGOT) 53 U/L Alkaline Phosphatase 92 IU/L WBC 8.1 10 3/uL RBC 3.66 10 6/uL HGB 10.2 g/dL HCT 30.1 % MCV 82.2 fl MCH 27.9 pg MCHC 33.9 g/dL Platelet Count 203 10 3/cmm MPV 9.3 fL Neutrophils 5.73 10 3/uL Lymphocytes 0.8 10 3/uL Monocytes 1.4 10 3/uL Eosinophils 0.1 10 3/uL Basophils 0.0 10 3/uL Neutrophil % 70.5 % Lymphocyte % 9.8 % Monocyte % 17.4 % Eosinophil % 1.7 % Basophils % 0.2 % NRBC % 0 % CBC Slide Review Slide Review Perform SLIDE REVIEW AGREES WITH AUTOMATED RESULTS Problem List: 1. Moderately severe anemia. There are multiple potential causes, but at least some component is very likely due to iron deficiency. 2. He has underlying cirrhosis of the liver with portal hypertension and splenomegaly. He has had associated GI bleeding and hepatic encephalopathy. 3. He also has associated ascites. 4. Hypertension. 5. Type II diabetes. 6. GERD. 7. Hypothyroidism. 8. Obstructive sleep apnea. 9. He has mild eczema. Problems Addressed with this Encounter and Plan: Patient with moderately severe anemia. There are multiple potential causes. At least some component does appear to be due to iron deficiency. He has had some improvement following parenteral iron replacement with 2 infusions of Injectafer. However, at this point he remains moderately anemic with borderline low red cell indices. His transferrin saturation is still significantly low at 7.2%. As such, he will be given 2 additional infusions of Injectafer. I will see him for follow-up at a 4-week interval. Signed By: Dima Parham M.D. <<Signature on File>>
== END 2021-02-27 13:05 | disposition home or self-care (01) ==
LOC: ONCMED 13:07
PROVIDERS: PCP Family Medicine; Visit Provider Internal Medicine Medical Oncology
DX: D50.9 Iron deficiency anemia, unspecified (principal); K74.60 Unspecified cirrhosis of liver; K76.6 Portal hypertension; R16.1 Splenomegaly, not elsewhere classified; K72.90 Hepatic failure, unspecified without coma; R18.8 Other ascites; I10 Essential (primary) hypertension; E11.9 Type 2 diabetes mellitus without complications; K21.9 Gastro-esophageal reflux disease without esophagitis; E03.9 Hypothyroidism, unspecified; G47.33 Obstructive sleep apnea (adult) (pediatric); L30.9 Dermatitis, unspecified; Z79.899 Other long term (current) drug therapy
CPT/HCPCS: 36415; 80053; 82728; 83540; 83550; 85025; 96365; 99214; J1439

== ENCOUNTER 2021-03-06 06:35 | Outpatient (CLI) | payer MEDICARE, OTHER, SELFPAY ==
[2021-03-06] MEDS: ferric carboxy (IVPB) 750 MG in sodium chloride 0.9% (100 ml) 100 ML 345 MG IV (09:50)
== END 2021-03-06 06:36 | disposition home or self-care (01) ==
LOC: ONCMED 06:38
PROVIDERS: PCP Family Medicine; Visit Provider Internal Medicine Medical Oncology
DX: D50.9 Iron deficiency anemia, unspecified (principal); Z79.899 Other long term (current) drug therapy
CPT/HCPCS: 96365; J1439

== ENCOUNTER → 2021-03-15 09:52 | Day surgery (SDC) | payer MEDICARE, OTHER, SELFPAY ==
--- NOTE | 2021-03-15 10:07 | US_ITS ---
WS: [id number] ULTRASOUND-GUIDED THERAPEUTIC AND DIAGNOSTIC PARACENTESIS Procedure, risks, and complications have been explained to the patient. Consent is obtained. Utilizing aseptic technique and 1% buffered lidocaine, a small dermatome was made through which a 5 F rench Yueh catheter was inserted. Approximately 4200 ml of clear peritoneal fluid was obtained witho ut difficulty. No complications encountered. Specimen collected and sent for analysis as requested. US/US paracentesis abd w [id number] IMPRESSION: Uncomplicated paracentesis yielding 4200 ml of peritoneal fluid.
[2021-03-15 10:24] VITALS: BMI 24.0
[2021-03-15 10:30] VITALS: BP 113/67; PULSE 72; RESP 16; TEMP 36.5; O2SAT 99
[2021-03-15 11:36] LABS: Body Fluid Polynuclear #Cells 0.052; Body Fluid WBC 173 /uL; Monocytes # Body Fluid 0.121; RBC, Body Fluid 0 10^3/uL
[2021-03-15 11:52] LABS: Apprearance, Body Fluid CLEAR; Color, Body Fluid PALE YELLOW
[2021-03-15 11:53] LABS: PATH Referral YES
== END ==
PROVIDERS: PCP Family Medicine; Visit Provider Internal Medicine Gastroenterology
DX: R18.8 Other ascites (principal)
CPT/HCPCS: 49083; 80500; 87070; 87075; 87205; 89050; 96365; P9047

== ENCOUNTER → 2021-03-24 09:11 | Day surgery (SDC) | payer MEDICARE, OTHER, SELFPAY ==
[2021-03-24 09:48] VITALS: BMI 24.5
[2021-03-24 09:49] VITALS: BP 111/68; PULSE 70; RESP 18; TEMP 36.2; O2SAT 99
--- NOTE | 2021-03-24 09:50 | US_ITS ---
WS: [id number] ULTRASOUND-GUIDED PARACENTESIS CLINICAL INFORMATION: cirrhosis of liver with ascites COMPARISON: None. Procedure Informed consent: The risks, benefits, and alternatives of the procedure were discussed with the sajan ent. Verbal and written consent was obtained. Timeout: A timeout was performed to confirm the correct patient, procedure, and site. Preparation: A suitable skin site was identified. The patient was prepped and draped in usual sterile fashion. Lidocaine 1% was used for local anesthesia. Catheter: 4 [place] One-step [place] catheter. Side: Left Lower quadrant. Fluid Volume: 6400 ml Color: Clear yellow DISPOSITION: Discarded safely. Complications: None. Patient disposition: Discharged from the department in stable condition. US/US paracentesis abd w [id number] IMPRESSION: Uncomplicated ultrasound-guided paracentesis. Removal of 6400 cc
[2021-03-24 10:32] LABS: INR 1.28 (0.8-1.2)
[2021-03-24 11:28] LABS: Body Fluid Polynuclear #Cells 0.009; Body Fluid WBC 88 /uL; Monocytes # Body Fluid 0.079; RBC, Body Fluid 0 10^3/uL
[2021-03-24 11:35] LABS: Apprearance, Body Fluid TURBID; Color, Body Fluid PALE YELLOW
--- NOTE | 2021-03-24 12:18 | SUR.OPER ---
albumin 25% 50ml [id number] [phone]
== END ==
PROVIDERS: Radiology Diagnostic Radiology; PCP Family Medicine; Visit Provider Internal Medicine Gastroenterology
DX: K74.60 Unspecified cirrhosis of liver (principal); R18.8 Other ascites
CPT/HCPCS: 36415; 49083; 80500; 85610; 87075; 89050; 96365; P9047

== ENCOUNTER → 2021-04-12 12:54 | Day surgery (SDC) | payer MEDICARE, OTHER, SELFPAY ==
[2021-04-12 13:05] VITALS: BP 130/70; PULSE 84; RESP 18; TEMP 36.3; O2SAT 98
--- NOTE | 2021-04-12 13:11 | US_ITS ---
WS: [id number] ULTRASOUND-GUIDED THERAPEUTIC AND DIAGNOSTIC PARACENTESIS Procedure, risks, and complications have been explained to the patient. Consent is obtained. Utilizing aseptic technique and 1% buffered lidocaine, a small dermatome was made through which a 5 F rench Yueh catheter was inserted. Approximately 4100 ml of clear peritoneal fluid was obtained witho ut difficulty. No complications encountered. Fluid collected for analysis as requested. US/US paracentesis abd w [id number] IMPRESSION: Uncomplicated paracentesis yielding 5100 ml of peritoneal fluid.
--- NOTE | 2021-04-12 14:02 | PC.NURSE ---
Pt to GI lab for paracentesis. 10 mL 1% Lidocaine used as local to LLQ prior to procedure. Fluid for cell count/diff and culture sent to lab as ordered. Report given to TONI Perez.
[2021-04-12 14:04] LABS: Body Fluid Polynuclear #Cells 0.003; Body Fluid WBC 98 /uL; Monocytes # Body Fluid 0.095; RBC, Body Fluid 0 10^3/uL
[2021-04-12 14:06] LABS: Apprearance, Body Fluid CLOUDY; Color, Body Fluid PALE YELLOW
[2021-04-12 14:47] VITALS: BP 108/66; PULSE 70; RESP 18; O2SAT 100
[2021-04-12] MEDS: albumin 37.5 GM/150 ML VIAL IV (15:06)
--- NOTE | 2021-04-12 15:09 | PC.NURSE ---
5100 mL clear juanita fluid removed following paracentesis. Pt to receive 37.5 gm Albumin IV as ordred (8gm 25% Alubumin for revery liter removed).
== END ==
LOC: GILAB 13:08 → RAD 13:09
PROVIDERS: PCP Family Medicine; Visit Provider Internal Medicine Gastroenterology
DX: R18.8 Other ascites (principal)
CPT/HCPCS: 49083; 80500; 87070; 87075; 87205; 89050; 96365; P9047

== ENCOUNTER 2021-04-17 12:08 | Outpatient (CLI) | payer MEDICARE, OTHER, SELFPAY ==
[2021-04-17 13:26] LABS: Basophils # 0.1 10^3/uL (0.0-0.1); Eosinophils # 0.1 10^3/uL (0.0-0.8); Eosinophils % 1.5 %; Hematocrit 33.5 % (42.0-52.0); Hemoglobin 11.3 g/dL (11.7-16.6); Lymphocytes # 0.6 10^3/uL (0.8-4.8); Lymphocytes % 9.4 %; Mean Corpuscular HGB Conc 33.7 g/dL (30.0-36.0); Mean Corpuscular Hemoglobin 31.8 pg (28.0-34.0); Mean Corpuscular Volume 94.4 fl (80-94); Monocytes # 0.8 10^3/uL (0.2-0.9); Monocytes % 12.8 %; Neutrophils # 4.36 10^3/uL (1.8-7.7); Neutrophils % 74.8 %; Nucleated Red Blood Cells % 0 %; Platelet Count 143 10^3/cmm (130-400); Red Blood Count 3.55 10^6/uL (4.1-5.3); Red Cell Distribution Width 15.6 % (12.1-15.1); White Blood Count 5.8 10^3/uL (4.0-10.0)
[2021-04-17 13:57] LABS: Alanine Aminotransferase 32 U/L (0-41); Albumin Level 3.4 g/dL (3.5-5.2); Alkaline Phosphatase 73 IU/L (40-130); Anion Gap 13.3 (5-19); Aspartate Amino Transferase 35 U/L (0-40); Blood Urea Nitrogen 15 mg/dL (8-23); Calcium 8.6 mg/dL (8.5-10.5); Carbon Dioxide 22 mmol/L (22-29); Chloride 99 mmol/L (98-107); Ferritin 268 ng/mL (30-400); Globulin 2.7 g/dL (1.3-4.6); Glomerular Filtration Rate 84.7 mL/min (90-130); Glucose 243 mg/dL (65-115); Iron 121 ug/dL (59-158); Osmolality Calculated 277 mOsm/kg (285-295); Percent Saturation 46.8 % (20-50); Potassium 5.3 mmol/L (3.5-5.1); Sodium 129 mmol/L (136-145); Total Bilirubin 1.3 mg/dL (0.15-1.2); Total Iron Binding Capacity 258 mcg/dl; Total Protein 6.1 g/dL (6.6-8.7); Unsaturated Iron Binding 137 ug/dL (112-347)
--- NOTE | 2021-04-17 19:07 | ONC FU_ITS ---
Dr. Parham Patient Follow-Up Note Patient: Luis Muñoz Unit #: [id number]: 1955 Dicatated By: Dima Parham M.D.Date of Visit:Apr 17, 2021 Onc Med Follow-up/Prog Note Chief Complaint: Anemia. History of Present Illness: This is a 65 year-old man with moderately severe anemia. I had seen him initially in February 2019 in regard to a mild thrombocytopenia, platelet count 104,000. At that time he was just borderline anemic with hemoglobin 12.0 g with normal red cell indices. His serum iron studies, though, did show low transferrin saturation at 12.2% and his ferritin was relatively low at 58 ng/mL. He had mildly elevated total bilirubin and mildly elevated SGOT/SGPT levels, and his CT abdomen did show findings consistent with cirrhosis of the liver with associated portal hypertension and splenomegaly. With those findings, he was referred to a non food receiving clerk for further management. In regard to the iron deficiency, he had previously been anemic, and he had undergone EGD and colonoscopy in July 2018. The colonoscopy was unrevealing. The EGD showed diffuse, severe chronic gastritis. He subsequently had been on treatment with a PPI and he also began on oral iron supplementation with ferrous sulfate. His follow-up laboratory studies on 12/23/2018 included CBC which showed his hemoglobin borderline at 13.2 g with white blood cell count mildly decreased at 4700 and platelet count low at 100,000. The MCV was 92. The serum iron studies showed low normal transferrin saturation at 22% and the ferritin was normal at 75.5 ng/mL. With his hemoglobin adequate at 12 g, he was recommended to continue with the oral iron supplementation. Subsequent to my initial visit with him he had developed moderately severe anemia. In February 2020 he was admitted to the hospital with acute GI bleeding. His hemoglobin had dropped to 8 g. There was no active bleeding noted at that time. He did not require transfusion. His subsequent EGD showed chronic gastropathy in the antrum. There was no active bleeding noted. In July 2020 he was admitted to the hospital with acute hepatic encephalopathy. His hemoglobin at that time dropped to as low as 7.0 g, but he still did not require transfusion. During this time, he underwent esophageal banding on 2 occasions and he also had therapeutic paracentesis. During his subsequent follow-up with Dr. Bustillo he had remained moderately anemic. His laboratory studies from 11/21/2020 included CBC showing hemoglobin 9.6 g with hematocrit 32.6%. The red cell indices were hypochromic/microcytic with MCV 77 and MCH 22. The white blood cell count was 6000 and the platelet count was 228,000. Comprehensive metabolic profile showed normal renal function with BUN 12 and creatinine 0.92 mg/dL. Bilirubin was just borderline high at 1.0 mg/dL. The other liver enzymes were normal. His earlier studies from 11/14/2020 included serum iron studies which showed normal transferrin saturation at 38% and elevated B12 level 1401 pg/mL. TSH was normal at 2.82 ???IU/mL. I had seen him for a follow-up visit on 12/15/2020. At that point he was complaining of fatigue and lethargy. He had very limited activity. His hemoglobin is down to 8.9 g with hypochromic/microcytic red cell indices. His transferrin saturation was reported to be high, but on a repeat study it was low at 6.5%. He was then given parenteral iron replacement with 2 infusions of Injectafer. He experienced no adverse effects from the iron infusions. His indicates that 4 days after the second infusion he did notice a significant improvement in his energy. He had subsequently developed increasing abdominal distention, and on 02/15/2021 he underwent therapeutic paracentesis with removal of 10 L of ascitic fluid. On 02/20/2020 when he was admitted to the hospital after presenting to the emergency room with confusion. He apparently had been having difficulty taking his lactulose due to nausea/vomiting. His ammonia was found to be significantly elevated. He was given lactulose by NG tube, and his symptoms improved. As of 02/27/2021 he remained anemic with hemoglobin 10.3 g. His serum iron studies showed low transferrin saturation at 7.2%, consistent with iron deficiency. He was then given 2 additional infusions of Injectafer. During follow-up he required further paracentesis procedures on 03/15, 03/24, and 04/12 for symptomatic management of the ascites. He is seen for a follow-up visit. He continues to have limited activity. His ECOG score is 2. He has had pretty good appetite. He does not have fever or night sweats. He complains that he is freezing to . He also complains that his left ear gets stopped up. He has not had sore mouth or throat. His breathing is sometimes labored. He has just occasional cough. He does not complain of chest pain. He has episodes of nausea at least 3-4 times a week. He is managing it with Zofran ODT. He has diarrhea with the lactulose. He has not been aware of any blood in the stool. Bladder function has been okay. He has joint pain, especially in the shoulders. It is being managed with tramadol. He does not complain of headache. He sometimes has dizziness. He has no numbness/paresthesia or other focal neurologic symptoms. Medications: Aldactone 1 (50 mg) Tablet Oral daily, Furosemide 1 (80 mg) Tablet Oral daily, metOLazone (10 mg) Tablet Oral b.i.d., Metoprolol Tartrate 1 Tablet (of 25 mg) Oral b.i.d., Omeprazole 1 Capsule (of 20 mg) Capsule Delayed Release Oral daily, Spironolactone 2 Tablet (of 100 mg) Oral b.i.d., Synthroid 1 Tablet (of 25 mcg) Oral daily Allergies: Sulfa Antibiotics Vital Signs: Performed on Apr 17, 2021 16:06 Height - 74.00 in Weight - 190 lbs (HIGH) BSA - 2.13 sq.m BMI - 24.39 Temperature - 97.6 F (LOW) Pulse - 89 /min Respiration - 18 /min BP - 120/77 mm(hg) O2 Sat - 99 % Pain - 0 Fatigue - 3 Physical Examination: Constitutional - He appears generally weak, Eyes - Sclerae nonicteric. Conjunctivae clear, ENMT - No lesions noted in the oral cavity, Hematologic/Lymphatic - No cervical, clavicular, or axillary adenopathy, Respiratory - Lungs are clear with good air movement bilaterally, Cardiovascular - Heart rhythm is regular. There is a II/ systolic murmur. There is no gallop or rub noted, Abdomen - Moderately distended with ascites. Liver and spleen are not overtly enlarged. There is no abdominal mass noted and there is no inguinal adenopathy, Extremities - There are mild venous stasis changes in both legs. There is silght edema. He has extensive purpura, Neurologic - No focal neurologic deficits noted. Lab/Imaging: Test performed on Apr 17, 2021 12:48 Ferritin 268 ng/mL Iron 121 mcg/dL Sodium 129 mmol/L Iron Binding Capacity (TIBC) 258 mcg/dl Potassium 5.3 mmol/L % Iron Saturation 46.8 % Chloride 99 mmol/L CO2 22 mmol/L UIBC 137 mcg/dL Anion Gap 13.3 BUN 15 mg/dL Creatinine 0.9 mg/dL Cr Clearance (Est) 99.75 mL/min eGFR 84.7 mL/min Glucose 243 mg/dL Osmolality - Calculated 277 mOsm/kg Calcium 8.6 mg/dL Protein, Total 6.1 g/dL Albumin 3.4 g/dL Globulin 2.7 g/dL Bilirubin, Total 1.3 mg/dL ALT (SGPT) 32 U/L AST (SGOT) 35 U/L Alkaline Phosphatase 73 IU/L WBC 5.8 10 3/uL RBC 3.55 10 6/uL HGB 11.3 g/dL HCT 33.5 % MCV 94.4 fl MCH 31.8 pg MCHC 33.7 g/dL RDW 15.6 % Platelet Count 143 10 3/cmm MPV 9.0 fL Neutrophils 4.36 10 3/uL Lymphocytes 0.6 10 3/uL Monocytes 0.8 10 3/uL Eosinophils 0.1 10 3/uL Basophils 0.1 10 3/uL Neutrophil % 74.8 % Lymphocyte % 9.4 % Monocyte % 12.8 % Eosinophil % 1.5 % Basophils % 1.0 % NRBC % 0 % Problem List: 1. Moderately severe anemia. There are multiple potential causes, but at least some component is very likely due to iron deficiency. 2. He has underlying cirrhosis of the liver with portal hypertension and splenomegaly. He has had associated GI bleeding and hepatic encephalopathy. 3. He also has associated ascites. 4. Hypertension. 5. Type II diabetes. 6. GERD. 7. Hypothyroidism. 8. Obstructive sleep apnea. 9. He has mild eczema. Problems Addressed with this Encounter and Plan: Patient with moderately severe anemia. It appears to be multifactorial, but at least some component was due to iron deficiency. He has had some response to parenteral iron replacement with Injectafer, though he remains mildly anemic. He continues to have very marginal performance status associated with his underlying liver disease. He is now scheduled to undergo evaluation to get on the liver transplant list. I will see him again as needed. Signed By: Dima Parham M.D. <<Signature on File>>
== END 2021-04-17 12:09 | disposition home or self-care (01) ==
LOC: ONCMED 12:10
PROVIDERS: PCP Family Medicine; Visit Provider Internal Medicine Medical Oncology
DX: D64.9 Anemia, unspecified (principal); K74.60 Unspecified cirrhosis of liver; K76.6 Portal hypertension; R16.1 Splenomegaly, not elsewhere classified; R18.8 Other ascites; I10 Essential (primary) hypertension; E11.9 Type 2 diabetes mellitus without complications; K21.9 Gastro-esophageal reflux disease without esophagitis; E03.9 Hypothyroidism, unspecified; G47.33 Obstructive sleep apnea (adult) (pediatric); L30.9 Dermatitis, unspecified; Z79.899 Other long term (current) drug therapy
CPT/HCPCS: 36415; 80053; 82728; 83540; 83550; 85025; G0463

== ENCOUNTER 2021-04-17 21:13 | Observation (INO) | payer MEDICARE, OTHER, SELFPAY ==
[2021-04-17 21:34] VITALS: BP 104/67; PULSE 78; RESP 16; TEMP 36.8; O2SAT 100; BMI 24.3
--- NOTE | 2021-04-17 21:52 | CTR_ITS ---
PROCEDURE INFORMATION: Exam: CT Abdomen And Pelvis With Contrast Exam date and time: 04/17/2021 9:52 PM Age: 66 years old Clinical indication: Nausea and vomiting; Abdominal pain; Prior surgery; Surgery type: Egd, appy, vasectomy; Additional info: Evaluate for strangulated hernia TECHNIQUE: Imaging protocol: Computed tomography of the abdomen and pelvis with contrast. Radiation optimization: All CT scans at this facility use at least one of these dose optimization techniques: automated exposure control; mA and/or kV adjustment per patient size (includes targeted exams where dose is matched to clinical indication); or iterative reconstruction. Contrast material: OMNI 300; Contrast volume: 95 ml; Contrast route: INTRAVENOUS (IV); COMPARISON: CT abdomen pelvis wo con [id number] 02/19/2021 5:48 PM RADIATION DOSE METRICS: Total DLP (mGy-cm): 1732.15 FINDINGS: Lungs: The lung bases appear unremarkable. Liver: Liver configuration is consistent with hepatic cirrhosis. No focal liver lesions are demonstrated. Gallbladder and bile ducts: No calcified gallstones in the gallbladder. No gallbladder wall thickening. No pericholecystic fluid. No biliary dilatation. Pancreas: The pancreas is normal in appearance. No pancreatic duct dilatation. Spleen: There is mild splenomegaly present. The spleen measures 15 cm in length. Adrenal glands: The adrenal glands appear within normal limits. Kidneys and ureters: The kidneys are normal in morphology. No hydronephrosis. No solid mass. Stomach and bowel: No acute gastric abnormality demonstrated. There is a 5 cm umbilical hernia containing a single loop of small bowel. The small bowel proximal to this bowel loop is dilated, consistent with small bowel obstruction secondary to incarcerated umbilical hernia. No acute gastric abnormality demonstrated. Diverticulosis of the colon. No evidence of acute diverticulitis. Appendix: No evidence of appendicitis. Intraperitoneal space: Large volume of ascites in the abdomen and pelvis. No pneumoperitoneum. Vasculature: The aorta is atherosclerotic. No aortic aneurysm. Lymph nodes: No pathologically enlarged lymph nodes. Urinary bladder: The urinary bladder is unremarkable in appearance. Reproductive: Unremarkable as visualized. Bones/joints: Degenerative spine changes are noted. Soft tissues: Small bilateral inguinal hernias noted, containing only fat. CT/CT abdomen pelvis w con* [id number] IMPRESSION: 1. Hepatic cirrhosis and findings of portal hypertension, including ascites and splenomegaly. 2. There is a small bowel obstruction noted secondary to incarcerated umbilical hernia. No ischemic change or perforation of the bowel noted. 3. Diverticulosis of the colon. No evidence of acute diverticulitis. Radiation Dose CTDIVOL = (mGy): DLP = 1732.15 (mGy-cm)
[2021-04-17 22:11] LABS: Basophils % 0.6 %; Eosinophils # 0.1 10^3/uL (0.0-0.8); Hematocrit 34.8 % (42.0-52.0); Hemoglobin 11.7 g/dL (11.7-16.6); Lymphocytes # 0.5 10^3/uL (0.8-4.8); Lymphocytes % 8.1 %; Mean Corpuscular HGB Conc 33.6 g/dL (30.0-36.0); Mean Corpuscular Volume 92.3 fl (80-94); Mean Platelet Volume 9.2 fL (7.4-10.4); Monocytes # 0.7 10^3/uL (0.2-0.9); Monocytes % 10.7 %; Neutrophils # 4.98 10^3/uL (1.8-7.7); Neutrophils % 79.3 %; Nucleated Red Blood Cells % 0 %; Platelet Count 139 10^3/cmm (130-400); Red Blood Count 3.77 10^6/uL (4.1-5.3); Red Cell Distribution Width 15.5 % (12.1-15.1); White Blood Count 6.3 10^3/uL (4.0-10.0)
[2021-04-17] MEDS: iohexol 300 mg/mL 100 mL Btl IV (22:17)
--- NOTE | 2021-04-17 22:23 | W.ED.GENADLT ---
HPI - General Adult General: Chief complaint: Abdominal Pain Stated complaint: abd pain Time Seen by Provider: 04/17/21 21:52 History of Present Illness: HPI narrative: Patient is 66-year-old male with history of CKD, DM, umbilical hernia diagnosed in July 2020 who presents the emergency room with acute onset of 4 hours of umbilical hernia site pain, swelling, N/V, abdominal pain. Patient says the symptoms started around 3 PM today. Since then, he has been feeling increasingly more pain. Denies any bowel or bladder change. Patient has also noted some erythema around the hernia site. Onset: 3pm Duration:4 hrs Location: home Severity:severe Review of Systems Narrative: Constitutional: No fever, no chills. HEENT: No vision changes CV: No chest pain, no palpitations PULM: no cough, no dyspnea. GI: +nonreducible hernia with erytheam, +N/+V/-D. : No dysuria MSKEL: No muscle pain SKIN: No new rashes, no lesions. NEURO: No headache, no focal weakness. HEME: No visible bruises PSYCH: Normal mood PFSH ED PFSH: Medical History (Updated 04/19/21 @ 00:02 by ) Acute hyponatremia -improved with hydration, on salt tablets -suspect some degree of this will persist chronically CKD (chronic kidney disease) stage 2, GFR 60-89 ml/min -baseline Cr wnl -current renal function at baseline GERD (gastroesophageal reflux disease) Hepatic encephalopathy -noted ammonia-69; mentation at baseline -on lactulose History of cirrhosis of liver -has been following up at [facility] in [place], less frequently lately due to coronavirus pandemic -normal LFTs History of diabetes mellitus -resume oral meds Hypertension -VSS -discontinue ARB, continue Aldactone; due to low normal BP and risk of hypotension Hypothyroidism -TSH wnl -continue levothyroxine Obstructive sleep apnea -CPAP qhs Surgical History (Updated 04/18/21 @ 16:41 by Parag Slater MD) H/O esophagogastroduodenoscopy (03/08/20) History of appendectomy History of arthroscopic knee surgery History of surgery on upper extremity History of umbilical hernia repair (04/18/21) History of vasectomy Family History Other Diabetes Social History Smoking and tobacco status: former smoker Quit status (tobacco): has quit using tobacco Alcohol intake: former Physical Exam Narrative: EXAM NARRATIVE: Head: Atraumatic Eyes: PERRL, conjunctiva without injection ENT: Mucous membrane moist NECK: Supple, ROM intact LUNGS: LCTAB, no crackles/rhonchi CV: RRR ABDOMEN: Soft, +nonreducible umbilical hernia with surrouing purpish erythema guarding rebound, guarding, rigidity. No CVA tenderness to percussion. Neg Wu/Neg McBurney's point tenderness, no suprabupic tenderness to palpation. EXTREMITY: Normal ROM SKIN: No rash or erythema NEURO: Awake and alert, no focal motor deficits PSYCH: Normal mood and affect Course Vital Signs: Vital signs: Vital Signs Temperature 98.5 F 04/18/21 17:43 Pulse Rate 69 04/18/21 17:43 Respiratory Rate 16 04/18/21 17:43 Blood Pressure 107/64 04/18/21 17:43 Pulse Oximetry 97 04/18/21 17:43 MDM - General Adult MDM Narrative: Medical decision making narrative: 66-year-old male with a history of helical hernia presents the emergency room with worsening abdominal pain since 3 PM. On exam, patient is hemodynamically stable with findings consistent with possible incarcerated hernia. Patient has overlying erythema and purplish color at the umbilical hernia site. Decision was made to not reduce at this time. CT abdomen pelvis confirm incarcerated umbilical hernia with small bowel obstruction. Case was discussed with Dr. Slater with recommendation for OR. Pain controlled with morphine and dilaudid. Disposition: Admission Lab Data: Labs: Lab Results 04/17/21 04/17/21 04/17/21 21:58 21:58 21:58 WBC 6.3 10^3/uL 10^3/ uL (4.0-10.0) RBC 3.77 10^6/uL L 10 ^6/uL (4.1-5.3) Hgb 11.7 g/dL g/dL (11.7-16.6) Hct 34.8 % L % (42.0-52.0) MCV 92.3 fl fl (80-94) MCH 31.0 pg pg (28.0-34.0) MCHC 33.6 g/dL g/dL (30.0-36.0) RDW 15.5 % H % (12.1-15.1) Plt Count 139 10^3/cmm 10^3 /cmm (130-400) MPV 9.2 fL fL (7.4-10.4) Neut % (Auto) 79.3 % % Lymph % (Auto) 8.1 % % [place] % (Auto) 10.7 % % Eos % (Auto) 1.0 % % Baso % (Auto) 0.6 % % Neut # (Auto) 4.98 10^3/uL 10^3 /uL (1.8-7.7) Lymph # (Auto) 0.5 10^3/uL L 10^ 3/uL (0.8-4.8) [place] # (Auto) 0.7 10^3/uL 10^3/ uL (0.2-0.9) Eos # (Auto) 0.1 10^3/uL 10^3/ uL (0.0-0.8) Baso # (Auto) 0.0 10^3/uL 10^3/ uL (0.0-0.1) Nucleated RBC % (a uto) 0 % % Nucleated RBCs # 0.0 /100WBC /100W BC PT 16.40 SECONDS H S ECONDS (12.1-14.9) INR 1.28 H (0.8-1.2) APTT 33.8 SECONDS SECO NDS (23.9-36.7) Sodium 127 mmol/L L mmol /L (136-145) Potassium 4.9 mmol/L mmol/L (3.5-5.1) Chloride 96 mmol/L L mmol/ L (98-107) Carbon Dioxide 21 mmol/L L mmol/ L (22-29) Anion Gap 14.9 (5-19) BUN 16 mg/dL mg/dL (8-23) Creatinine 0.8 mg/dL mg/dL (0.7-1.2) GFR Calculation 97.0 mL/min mL/mi n (90-130) Glucose 275 mg/dL H mg/dL (65-115) Calculated Osmolal ity 275 mOsm/kg L mOs m/kg (285-295) Lactate Calcium 8.9 mg/dL mg/dL (8.5-10.5) Total Bilirubin 1.3 mg/dL H mg/dL (0.15-1.2) AST 34 U/L U/L (0-40) ALT 33 U/L U/L (0-41) Alkaline Phosphata se 81 IU/L IU/L (40-130) Total Protein 6.8 g/dL g/dL (6.6-8.7) Albumin 3.6 g/dL g/dL (3.5-5.2) Globulin 3.2 g/dL g/dL (1.3-4.6) Lipase 90 U/L H U/L (13-60) Urine Color Urine Appearance Urine pH Ur Specific Gravit y Urine Protein Urine Glucose (UA) Urine Ketones Urine Blood Urine Nitrate Urine Bilirubin Urine Urobilinogen Ur Leukocyte Denia ase 04/17/21 04/17/21 21:58 23:15 WBC RBC Hgb Hct MCV MCH MCHC RDW Plt Count MPV Neut % (Auto) Lymph % (Auto) [place] % (Auto) Eos % (Auto) Baso % (Auto) Neut # (Auto) Lymph # (Auto) [place] # (Auto) Eos # (Auto) Baso # (Auto) Nucleated RBC % (a uto) Nucleated RBCs # PT INR APTT Sodium Potassium Chloride Carbon Dioxide Anion Gap BUN Creatinine GFR Calculation Glucose Calculated Osmolal ity Lactate 1.7 mmol/L mmol/L (0.5-2.2) Calcium Total Bilirubin AST ALT Alkaline Phosphata se Total Protein Albumin Globulin Lipase Urine Color Straw (Yellow) Urine Appearance Clear (CLEAR) Urine pH 5 (5-7) Ur Specific Gravit y 1.015 (1.005-1.030) Urine Protein Neg (Negative) Urine Glucose (UA) 4+ H (Normal) Urine Ketones Negative (Negative) Urine Blood Neg (Negative) Urine Nitrate Negative (Negative) Urine Bilirubin Neg (Negative) Urine Urobilinogen Norm mg/dL mg/dL (Negative) Ur Leukocyte Denia ase Negative (Negative) Imaging Data^: Other Imaging: Radiologist's impression: [address] [id number] Scan ReportSigned Patient: Luis Muñoz #: [id number]: 6Acct#:[id number]/Sex: 66 / MADM Date: 04/17/21Loc: ERRoom/Bed:Attending Dr: Ordering Provider/Ordering MD: Adonis Francisco MD Date of Service: 04/17/21 Procedure(s): CT abdomen pelvis w con* [id number] Accession Number(s): [id number] Report Number: [id number] PROCEDURE INFORMATION: Exam: CT Abdomen And Pelvis With Contrast Exam date and time: 04/17/2021 9:52 PM Age: 66 years old Clinical indication: Nausea and vomiting; Abdominal pain; Prior surgery; Surgery type: Egd, appy, vasectomy; Additional info: Evaluate for strangulated hernia TECHNIQUE: Imaging protocol: Computed tomography of the abdomen and pelvis with contrast. Radiation optimization: All CT scans at this facility use at least one of these dose optimization techniques: automated exposure control; mA and/or kV adjustment per patient size (includes targeted exams where dose is matched to clinical indication); or iterative reconstruction. Contrast material: OMNI 300; Contrast volume: 95 ml; Contrast route: INTRAVENOUS (IV); COMPARISON: CT abdomen pelvis wo con [id number] 02/19/2021 5:48 PM RADIATION DOSE METRICS: Total DLP (mGy-cm): 1732.15 FINDINGS: Lungs: The lung bases appear unremarkable. Liver: Liver configuration is consistent with hepatic cirrhosis. No focal liver lesions are demonstrated. Gallbladder and bile ducts: No calcified gallstones in the gallbladder. No gallbladder wall thickening. No pericholecystic fluid. No biliary dilatation. Pancreas: The pancreas is normal in appearance. No pancreatic duct dilatation. Spleen: There is mild splenomegaly present. The spleen measures 15 cm in length. Adrenal glands: The adrenal glands appear within normal limits. Kidneys and ureters: The kidneys are normal in morphology. No hydronephrosis. No solid mass. Stomach and bowel: No acute gastric abnormality demonstrated. There is a 5 cm umbilical hernia containing a single loop of small bowel. The small bowel proximal to this bowel loop is dilated, consistent with small bowel obstruction secondary to incarcerated umbilical hernia. No acute gastric abnormality demonstrated. Diverticulosis of the colon. No evidence of acute diverticulitis. Appendix: No evidence of appendicitis. Intraperitoneal space: Large volume of ascites in the abdomen and pelvis. No pneumoperitoneum. Vasculature: The aorta is atherosclerotic. No aortic aneurysm. Lymph nodes: No pathologically enlarged lymph nodes. Urinary bladder: The urinary bladder is unremarkable in appearance. Reproductive: Unremarkable as visualized. Bones/joints: Degenerative spine changes are noted. Soft tissues: Small bilateral inguinal hernias noted, containing only fat. CT/CT abdomen pelvis w con* [id number] IMPRESSION: 1. Hepatic cirrhosis and findings of portal hypertension, including ascites and splenomegaly. 2. There is a small bowel obstruction noted secondary to incarcerated umbilical hernia. No ischemic change or perforation of the bowel noted. 3. Diverticulosis of the colon. No evidence of acute diverticulitis. Radiation Dose CTDIVOL = (mGy): DLP = 1732.15 (mGy-cm) Dictated By:Oziel Durant MDSigned By:Oziel Durant MDSigned Date/Time:04/17/21 2329DD/ 51 Discharge Plan Discharge Patient Disposition: Admitted As Inpatient Admit Provider: Parag Slater Clinical Impression: Incarcerated umbilical hernia, Small bowel obstruction, Abdominal pain Condition: Stable Coding Level of Care Code ED Therapy Assistant for [facility]
[2021-04-17 22:24] LABS: INR 1.28 (0.8-1.2)
[2021-04-17 22:25] LABS: Partial Thromboplastin Time 33.8 SECONDS (23.9-36.7)
[2021-04-17 22:30] LABS: Lactate (Lactic Acid level) 1.7 mmol/L (0.5-2.2)
[2021-04-17 22:31] LABS: Alanine Aminotransferase 33 U/L (0-41); Albumin Level 3.6 g/dL (3.5-5.2); Alkaline Phosphatase 81 IU/L (40-130); Anion Gap 14.9 (5-19); Aspartate Amino Transferase 34 U/L (0-40); Blood Urea Nitrogen 16 mg/dL (8-23); Calcium 8.9 mg/dL (8.5-10.5); Carbon Dioxide 21 mmol/L (22-29); Chloride 96 mmol/L (98-107); Globulin 3.2 g/dL (1.3-4.6); Glucose 275 mg/dL (65-115); Lipase 90 U/L (13-60); Osmolality Calculated 275 mOsm/kg (285-295); Potassium 4.9 mmol/L (3.5-5.1); Sodium 127 mmol/L (136-145); Total Bilirubin 1.3 mg/dL (0.15-1.2); Total Protein 6.8 g/dL (6.6-8.7)
[2021-04-17 22:34] VITALS: RESP 18
[2021-04-17] MEDS: morphine 4 mg/mL SDV 1 mL IVP (22:34)
[2021-04-17] MEDS: ondansetron 2 mg/ML SDV 2 mL 4 MG IVP (23:26)
[2021-04-17 23:29] VITALS: BP 110/62; PULSE 71; RESP 18; O2SAT 99
[2021-04-17 23:34] LABS: Add Urine Microscopic? NO; Charge for UA Resulting for Rev
[2021-04-17 23:42] VITALS: RESP 16
[2021-04-17] MEDS: HYDROmorphone 1 mg/mL INJ 1 mL 0.5 MG IVP (23:42)
[2021-04-17 23:58] LABS: Bilirubin Urine Neg (Negative); Blood Urine Neg (Negative); Glucose Urine UA 4+ (Normal); Ketones Urine Negative (Negative); Leukocyte Esterase Urine Negative (Negative); Nitrate Urine Negative (Negative); Protein Urine Neg (Negative); Specific Gravity, Urine 1.015 (1.005-1.030); Urine Appearance Clear (CLEAR); Urine Color Straw (Yellow); Urobilinogen Urine Norm (Negative); pH Urine 5 (5-7)
[2021-04-18] VITALS (18 sets, daily range): BP systolic 101–113; BP diastolic 60–73; PULSE 68–103; RESP 12–18; TEMP 36.6–37.1; O2SAT 94–100
[2021-04-18] MEDS: lidocaine 2% Urojet 20 mL TOPICAL (00:54)
--- NOTE | 2021-04-18 00:58 | PM.HP ---
Providers/Chief Complaint Primary Care Provider: Floresita Bustillo DO Chief Complaint: abd pain History of Present Illness Luis Muñoz is a 66 year old male Nonalcoholic liver disease, thrombocytopenia, anemia with who had a known umbilical hernia. The hernia was asymptomatic and was being observed. Patient states that recently over the last few weeks the hernia would become painful but he was able to reduce it on laying down. At 3 PM yesterday he started having periumbilical pain which progressively got worse and around 7 PM he started having nausea and vomiting. He is on lactulose for his encephalopathy and so he had multiple bowel movements yesterday. Denies any fevers or chills. His pain is localized to the umbilicus, does not radiate and the rest of the abdomen is not tender. Review of Systems General: Reports: 10 or more systems reviewed and unremarkable except in HPI and below Medications/Allergies Home Medications Medication Instructions Recorded Confirmed Last Taken Type Xifaxan 550 mg PO BID@0800,199902/16/20 04/12/21 04/11/21 History betamethasone dipropionate 1 applic TOPICAL PRN 02/16/20 04/12/21 03/24/21 History levothyroxine 25 mcg PO DAILY@0800 02/16/20 04/12/21 04/11/21 History lactulose 30 ml PO 5XD 03/07/20 04/12/21 04/11/21 History omeprazole 40 mg PO BID@0800,199907/30/20 04/12/21 04/11/21 History hydrocodone-acetaminophen 1 tab PO BID PRN 02/15/21 04/12/21 04/11/21 History metolazone 10 mg PO DAILY 02/15/21 04/12/21 04/11/21 History temazepam 7.5 - 15 mg PO BEDTIME PRN 02/15/21 04/12/21 04/11/21 History spironolactone 100 mg PO BID 03/15/21 04/12/21 04/11/21 History Allergies Allergy/AdvReac Type Severity Reaction Status Date / Time Sulfa (Sulfonamide Allergy ALGY-Rash Verified 03/24/21 09:48 Antibiotics) PFSH Acute PFSH: Medical History Acute hyponatremia -improved with hydration, on salt tablets -suspect some degree of this will persist chronically CKD (chronic kidney disease) stage 2, GFR 60-89 ml/min -baseline Cr wnl -current renal function at baseline GERD (gastroesophageal reflux disease) Hepatic encephalopathy -noted ammonia-69; mentation at baseline -on lactulose History of cirrhosis of liver -has been following up at [facility] in [place], less frequently lately due to coronavirus pandemic -normal LFTs History of diabetes mellitus -resume oral meds Hypertension -VSS -discontinue ARB, continue Aldactone; due to low normal BP and risk of hypotension Hypothyroidism -TSH wnl -continue levothyroxine Obstructive sleep apnea -CPAP qhs Surgical History H/O esophagogastroduodenoscopy (03/08/20) History of appendectomy History of arthroscopic knee surgery History of surgery on upper extremity History of vasectomy Family History Other Diabetes Social History Smoking and tobacco status: former smoker Quit status (tobacco): has quit using tobacco Alcohol intake: former Vitals/I&O/Wt Last Vital Signs Temp 98.2 F 04/17/21 21:34 Pulse 68 04/18/21 00:56 Resp 18 04/18/21 00:56 BP 102/67 04/18/21 00:56 Pulse Ox 98 04/18/21 00:56 Weight last 48 hrs Weight 190 lb Physical Exam Narrative: EXAM NARRATIVE: HEENT: Normocephalic Eye: Sclera /conjunctiva normal Respiratory and chest: Bilateral clear breath sounds on auscultation Cardiovascular: Normal S1 and S2 heart sounds Abdomen: Soft to palpation, tender incarcerated umbilical hernia with erythema of the overlying skin Neurological: Oriented to place person and time Skin: Intact, no lesions appreciated on gross exam Data : 04/17/21 21:58 04/17/21 21:58 A&P Assessment and plan (1) Incarcerated umbilical hernia: 66 old male with nonalcoholic liver cirrhosis, thrombocytopenia, anemia, ascites who had a known umbilical hernia which is being observed. Patient has had multiple paracentesis with the last one being about a week ago. CT abdomen pelvis today revealed incarcerated umbilical hernia causing small bowel obstruction, no pneumoperitoneum. Meld score: 10, 6% 3-month mortality rate Discuss the findings with the patient and his , with the incarcerated umbilical hernia causing bowel obstruction unfortunately the only option would be to proceed with surgical repair of the umbilical hernia with possible small bowel resection Procedure, risks, benefits and alternatives have been discussed with the patient who wishes to proceed with surgery. 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
--- NOTE | 2021-04-18 01:22 | ANES.PREANE2 ---
Pre-Anesthetic Assessment Pre-Anesthetic Assessment: Height/Weight: Height 1.88 m Weight 86.183 kg Temp Pulse Resp BP Pulse Ox 98.2 F 68 18 102/67 98 04/17/21 21:34 04/18/21 00:56 04/18/21 00:56 04/18/21 00:56 04/18/21 00:56 Preop Diagnosis: incarcerated umbilical hernia Proposed Procedure: Operation Date: 04/18/21 01:30 Proposed Procedures p Umbilical Hernia Repair(Not Applicable) - Parag Slater MD Was Beta Venkat taken within 24 hours: N/A Was Clonidine taken within 24 hours: N/A Social: Social History: No alcohol and No tobacco Exam: Pre-Anes Outpt Exam: alert, oriented x 3, clear to auscultation bilaterally and regular rate & rhythm Airway: Submandibular: WNL Cervical ROM: WNL MP: 2 Dentition: Full CV/HEM: CV/HEM: Anemia and HTN : : Chronic renal Insufficiency Hepatic: Hepatic: Cirrohsis GI: GI: GERD Comments: Acute abdomne with incarcerated umbilical hernia Metabolic: Metabolic: Thyroid Anesthetic Plan: ASA status: 3E Anesthesia: General (RSI) Risk of > 500 ml blood loss (7ml/kg in children): No PFSH Anesthesia PFSH: Medical History Acute hyponatremia -improved with hydration, on salt tablets -suspect some degree of this will persist chronically CKD (chronic kidney disease) stage 2, GFR 60-89 ml/min -baseline Cr wnl -current renal function at baseline GERD (gastroesophageal reflux disease) Hepatic encephalopathy -noted ammonia-69; mentation at baseline -on lactulose History of cirrhosis of liver -has been following up at [facility] in [place], less frequently lately due to coronavirus pandemic -normal LFTs History of diabetes mellitus -resume oral meds Hypertension -VSS -discontinue ARB, continue Aldactone; due to low normal BP and risk of hypotension Hypothyroidism -TSH wnl -continue levothyroxine Obstructive sleep apnea -CPAP qhs Surgical History H/O esophagogastroduodenoscopy (03/08/20) History of appendectomy History of arthroscopic knee surgery History of surgery on upper extremity History of vasectomy Family History Other Diabetes Social History Smoking and tobacco status: former smoker Quit status (tobacco): has quit using tobacco Alcohol intake: former Data Anesthesia CBC & Chem 7: 04/17/21 21:58 04/17/21 21:58 Other Labs: Laboratory Results - last 48 hr 04/17/21 04/17/21 04/17/21 21:58 21:58 21:58 WBC 6.3 RBC 3.77 L Hgb 11.7 Hct 34.8 L MCV 92.3 MCH 31.0 MCHC 33.6 RDW 15.5 H Plt Count 139 MPV 9.2 Neut % (Auto) 79.3 Lymph % (Auto) 8.1 [place] % (Auto) 10.7 Eos % (Auto) 1.0 Baso % (Auto) 0.6 Neut # (Auto) 4.98 Lymph # (Auto) 0.5 L [place] # (Auto) 0.7 Eos # (Auto) 0.1 Baso # (Auto) 0.0 Nucleated RBC % (auto) 0 Nucleated RBCs # 0.0 PT 16.40 H INR 1.28 H APTT 33.8 Sodium 127 L Potassium 4.9 Chloride 96 L Carbon Dioxide 21 L Anion Gap 14.9 BUN 16 Creatinine 0.8 GFR Calculation 97.0 Glucose 275 H Calculated Osmolality 275 L Lactate Calcium 8.9 Total Bilirubin 1.3 H AST 34 ALT 33 Alkaline Phosphatase 81 Total Protein 6.8 Albumin 3.6 Globulin 3.2 Lipase 90 H Urine Color Urine Appearance Urine pH Ur Specific [place] Urine Protein Urine Glucose (UA) Urine Ketones Urine Blood Urine Nitrate Urine Bilirubin Urine Urobilinogen Ur Leukocyte Esterase 04/17/21 04/17/21 21:58 23:15 WBC RBC Hgb Hct MCV MCH MCHC RDW Plt Count MPV Neut % (Auto) Lymph % (Auto) [place] % (Auto) Eos % (Auto) Baso % (Auto) Neut # (Auto) Lymph # (Auto) [place] # (Auto) Eos # (Auto) Baso # (Auto) Nucleated RBC % (auto) Nucleated RBCs # PT INR APTT Sodium Potassium Chloride Carbon Dioxide Anion Gap BUN Creatinine GFR Calculation Glucose Calculated Osmolality Lactate 1.7 Calcium Total Bilirubin AST ALT Alkaline Phosphatase Total Protein Albumin Globulin Lipase Urine Color Straw Urine Appearance Clear Urine pH 5 Ur Specific [place] 1.015 Urine Protein Neg Urine Glucose (UA) 4+ H Urine Ketones Negative Urine Blood Neg Urine Nitrate Negative Urine Bilirubin Neg Urine Urobilinogen Norm Ur Leukocyte Esterase Negative Cardiac Studies: No Data to Display
--- NOTE | 2021-04-18 02:28 | PM.OP ---
Operative Report Date of procedure: April 18, 2021 Pre-op Diagnosis: 1. Incarcerated umbilical hernia containing small bowel 2. Small bowel obstruction 3. Ascites secondary to cirrhosis with portal hypertension Post-op Diagnosis: 1. Incarcerated umbilical hernia containing small bowel which was reduced and appeared viable 2. Small bowel obstruction 3. Ascites secondary to cirrhosis with portal hypertension Procedure Done: 1. Open primary repair of incarcerated umbilical hernia containing small bowel 2. Paracentesis-3.5 L Specimens removed/disposition: Hernia sac Surgeon: Parag Slater Anesthesia: General Condition: stable Disposition: PACU Procedure: The patient was taken to the operating room and intubated under general anesthesia after IV antibiotic had been administered. Using a 15 blade, midline incision was made around the umbilicus, subcutaneous tissue was divided using electrocautery and the hernia sac was dissected free from the surrounding subcutaneous tissue, excised and sent to pathology. A knuckle of small bowel was noted within the hernia sac. The small bowel appeared viable and the hernia defect was extended with Metzenbaum scissors to reduce the small bowel into the peritoneal cavity. The defect measured about 2.5 x 2 cm. Using suction, 3.5 L of ascites fluid was aspirated. The peritoneum was approximated using running 3-0 Vicryl suture. The fascia was approximated using multiple [id number] 0 Prolene sutures. The subcutaneous tissues were approximated using running 3-0 Vicryl suture and skin was closed using running subcuticular 4-0 Monocryl suture and Dermabond. Pressure dressings were applied. The patient was extubated and transferred recovery room in stable condition.
--- NOTE | 2021-04-18 02:39 | SUR.PHASEI ---
0235 patient to PACU from OR at this time. rr even and unlabored. patient appears comfortable. incision to abdomen, cdi.
--- NOTE | 2021-04-18 02:59 | SUR.PHASEI ---
0253 patient to med surg via bed. no distress. incision to abdomen, cdi. patient is tolerating ice chips well.
[2021-04-18] MEDS: morphine 4 mg/mL SDV 1 mL 3 MG IVP ×3 (03:22→11:51)
[2021-04-18] MEDS: sodium chloride 0.9% 1,000 ML 100 ML IV (03:23)
[2021-04-18] MEDS: lactulose oral liq 20 gm/30 mL UDC PO ×2 (05:39→14:28)
[2021-04-18 05:56] LABS: Basophils % 0.2 %; Eosinophils % 0.5 %; Hematocrit 31.3 % (42.0-52.0); Hemoglobin 10.3 g/dL (11.7-16.6); Lymphocytes # 0.2 10^3/uL (0.8-4.8); Lymphocytes % 5.4 %; Mean Corpuscular HGB Conc 32.9 g/dL (30.0-36.0); Mean Corpuscular Hemoglobin 30.7 pg (28.0-34.0); Mean Corpuscular Volume 93.2 fl (80-94); Mean Platelet Volume 9.1 fL (7.4-10.4); Monocytes # 0.2 10^3/uL (0.2-0.9); Monocytes % 4.3 %; Neutrophils # 3.95 10^3/uL (1.8-7.7); Neutrophils % 89.1 %; Nucleated Red Blood Cells % 0 %; Platelet Count 91 10^3/cmm (130-400); Red Blood Count 3.36 10^6/uL (4.1-5.3); Red Cell Distribution Width 15.1 % (12.1-15.1); White Blood Count 4.4 10^3/uL (4.0-10.0)
[2021-04-18 06:08] LABS: INR 1.49 (0.8-1.2)
[2021-04-18 06:26] LABS: Alanine Aminotransferase 27 U/L (0-41); Albumin Level 3.3 g/dL (3.5-5.2); Alkaline Phosphatase 64 IU/L (40-130); Anion Gap 11.9 (5-19); Aspartate Amino Transferase 27 U/L (0-40); Blood Urea Nitrogen 14 mg/dL (8-23); Calcium 8.4 mg/dL (8.5-10.5); Carbon Dioxide 22 mmol/L (22-29); Chloride 100 mmol/L (98-107); Globulin 2.4 g/dL (1.3-4.6); Glomerular Filtration Rate 113.2 mL/min (90-130); Glucose 188 mg/dL (65-115); Osmolality Calculated 273 mOsm/kg (285-295); Potassium 4.9 mmol/L (3.5-5.1); Sodium 129 mmol/L (136-145); Total Bilirubin 1.4 mg/dL (0.15-1.2); Total Protein 5.7 g/dL (6.6-8.7)
[2021-04-18] MEDS: spironolactone 25 mg Tablet 100 MG PO (08:00)
[2021-04-18] MEDS: levothyroxine 25 mcg Tablet PO (08:00)
[2021-04-18] MEDS: pantoprazole DR 40 mg Tablet PO (08:00)
[2021-04-18] MEDS: metOLazone 5 MG Tablet 10 MG PO (08:05)
--- NOTE | 2021-04-18 08:33 | ANE.PACU2 ---
Inpatient post-anesthesia follow up: Airway intact: Yes Vital signs: Temperature 98.7 F Pulse Rate [Left B rachial] 78 Pulse Rate 81 Respiratory Rate 16 Blood Pressure [Le ft Arm] 104/67 Blood Pressure 102/60 Pulse Oximetry 98 Oxygen Delivery Me thod Room Air Oxygen Flow Rate 6 Fraction of Inspir ed Oxygen Hydration adequate: Yes Nausea and vomiting: No Pain level: 2 Mental status: Baseline
[2021-04-18] MEDS: ondansetron 2 mg/ML SDV 2 mL 4 MG IVP (10:04)
--- NOTE | 2021-04-18 10:09 | PC.NURSE ---
Patient states, I don't want a bunch of the lactulose. It builds up and causes diarrhea in the evening. I will take the next dose.
--- NOTE | 2021-04-18 10:15 | PC.CHAP ---
Pastoral Care Encounter/Spiritual Assessment Type of Contact [] Declined acid tank cleaner visit [] Patient/Family/Request visit [] Outpatient visit [] Follow-up visit [] Physician referral [] Code/Alert [] Routine visit [] Staff referral [] Actively dying [] Patient sleeping [] Family support [] [] Out of room [] Palliative care [] [x] Receiving care in room [] Pre-surgical visit [] Trauma [] Long length of stay [] ICU visit [] Other: Relational/Emotional Strength [] Patient feels connected with others/family/visitors/staff [] Distress [] Loneliness/isolation [] Abandonment Spirituality of Patient [] Person of Moni [] Attends Latter Day of their Moni [] Believes in Prayer [] Reads Bible or Evangelical materials [] There are Spiritual issues to be addressed Material Manager Interventions [] Prayer [] Active listening [] Non-anxious presence [] Spiritual/emotional support [] Crisis/trauma care [] Spiritual counseling [] Bereavement support [] Provided bereavement packet [] Provided Bible/devotional materials [] Provided toy/stuffed animal, coloring book to patient or family member [] Provided Communion [] Anointing/[place] [] Salvation [] Completed spiritual assessment [] Other: Impact on Illness or Injury [] Angry [] Fearful [] Anxious [] Often cries [] Exhaustion [] Unable to work [] Unable to attend yarsani [] Unable to walk/stand [] Unable to read [] Unable to drive [] Unable to eat/drink [] Unable to sleep [] Unable to be with family [] Patient intubated [] Other: Summary Time spent with patient
--- NOTE | 2021-04-18 10:40 | PC.PHAR ---
pt and pts verified pts medications-pts states the pt hasnt taken kcl 20meq daily for 2 months ext med history shows last filled on 01/30/21 90d/s-pts states the pt takes 80mg daily of lasix ext med history shows last filled on 01/30/21 30d/s for 80mg bid-pt states he has been taking lactulose 60ml po qid prn ext med history shows last filled on 04/08/21 30ml po tid-notes are made in the pharmacy comments
[2021-04-18] MEDS: HYDROcodone-acetaminophen 5-325 mg Tablet 1 TAB PO (15:06)
--- NOTE | 2021-04-18 16:41 | PM.DCS ---
Discharge Providers Date of Admission: 04/18/21 02:47 Date of Discharge: April 18, 2021 Attending Provider at Admission: Parag Slater MD Attending Provider at Discharge: Parag Slater MD Primary Care Provider: Floresita Bustillo DO Diagnoses at Discharge Discharge Diagnosis (1) Incarcerated umbilical hernia: Status: Resolved Reason for Visit Reason for Visit: abd pain Hospital Course Hospital Course Luis Muñoz is a 66 year old male Nonalcoholic liver disease, thrombocytopenia, anemia with who had a known umbilical hernia. The hernia was asymptomatic and was being observed. Patient states that recently over the last few weeks the hernia would become painful but he was able to reduce it on laying down. At 3 PM yesterday he started having periumbilical pain which progressively got worse and around 7 PM he started having nausea and vomiting. He is on lactulose for his encephalopathy and so he had multiple bowel movements yesterday. Denies any fevers or chills. His pain is localized to the umbilicus, does not radiate and the rest of the abdomen is not tender. Patient was emergently taken to the operating room where he underwent open repair of umbilical hernia and paracentesis. At time of discharge his vital signs are stable, he is ambulating and his pain is controlled with oral pain medications. Discharge Data Data Completed and Pending: Completed Studies During Hospitalization Category Date Time Status CT abdomen pelvis w con* [id number] Urge nt Cat Scan 04/17/21 21:52 Completed Pending at discharge Category Date Time Status Complete Blood Co unt w/Auto AM LABS Lab 04/19/21 04:00 Ordered Complete Blood Co unt w/Auto AM LABS Lab 04/20/21 04:00 Ordered Pathology: Surgic al [PTH] Routine Pth 04/18/21 02:16 Received Labs from last 24 hours 04/18/21 04/18/21 04/18/21 05:30 05:30 05:30 WBC 4.4 RBC 3.36 L Hgb 10.3 L Hct 31.3 L MCV 93.2 MCH 30.7 MCHC 32.9 RDW 15.1 Plt Count 91 L D MPV 9.1 Neut % (Auto) 89.1 Lymph % (Auto) 5.4 Carver % (Auto) 4.3 Eos % (Auto) 0.5 Baso % (Auto) 0.2 Neut # (Auto) 3.95 Lymph # (Auto) 0.2 L Carver # (Auto) 0.2 Eos # (Auto) 0.0 Baso # (Auto) 0.0 Nucleated RBC % (a uto) 0 Nucleated RBCs # 0.0 PT 18.40 H INR 1.49 H APTT Sodium 129 L Potassium 4.9 Chloride 100 Carbon Dioxide 22 Anion Gap 11.9 BUN 14 Creatinine 0.7 GFR Calculation 113.2 Glucose 188 H Calculated Osmolal ity 273 L Lactate Calcium 8.4 L Total Bilirubin 1.4 H AST 27 ALT 27 Alkaline Phosphata se 64 Total Protein 5.7 L Albumin 3.3 L Globulin 2.4 Lipase Urine Color Urine Appearance Urine pH Ur Specific Gravit y Urine Protein Urine Glucose (UA) Urine Ketones Urine Blood Urine Nitrate Urine Bilirubin Urine Urobilinogen Ur Leukocyte Denia ase Blood Type Rho(D) Type Antibody Screen 04/18/21 04/17/21 04/17/21 05:30 23:15 21:58 WBC RBC Hgb Hct MCV MCH MCHC RDW Plt Count MPV Neut % (Auto) Lymph % (Auto) Carver % (Auto) Eos % (Auto) Baso % (Auto) Neut # (Auto) Lymph # (Auto) Carver # (Auto) Eos # (Auto) Baso # (Auto) Nucleated RBC % (a uto) Nucleated RBCs # PT INR APTT Sodium Potassium Chloride Carbon Dioxide Anion Gap BUN Creatinine GFR Calculation Glucose Calculated Osmolal ity Lactate 1.7 Calcium Total Bilirubin AST ALT Alkaline Phosphata se Total Protein Albumin Globulin Lipase Urine Color Straw Urine Appearance Clear Urine pH 5 Ur Specific Gravit y 1.015 Urine Protein Neg Urine Glucose (UA) 4+ H Urine Ketones Negative Urine Blood Neg Urine Nitrate Negative Urine Bilirubin Neg Urine Urobilinogen Norm Ur Leukocyte Denia ase Negative Blood Type A Positive Rho(D) Type Positive Antibody Screen Negative 04/17/21 04/17/21 04/17/21 21:58 21:58 21:58 WBC 6.3 RBC 3.77 L Hgb 11.7 Hct 34.8 L MCV 92.3 MCH 31.0 MCHC 33.6 RDW 15.5 H Plt Count 139 MPV 9.2 Neut % (Auto) 79.3 Lymph % (Auto) 8.1 Carver % (Auto) 10.7 Eos % (Auto) 1.0 Baso % (Auto) 0.6 Neut # (Auto) 4.98 Lymph # (Auto) 0.5 L Carver # (Auto) 0.7 Eos # (Auto) 0.1 Baso # (Auto) 0.0 Nucleated RBC % (a uto) 0 Nucleated RBCs # 0.0 PT 16.40 H INR 1.28 H APTT 33.8 Sodium 127 L Potassium 4.9 Chloride 96 L Carbon Dioxide 21 L Anion Gap 14.9 BUN 16 Creatinine 0.8 GFR Calculation 97.0 Glucose 275 H Calculated Osmolal ity 275 L Lactate Calcium 8.9 Total Bilirubin 1.3 H AST 34 ALT 33 Alkaline Phosphata se 81 Total Protein 6.8 Albumin 3.6 Globulin 3.2 Lipase 90 H Urine Color Urine Appearance Urine pH Ur Specific Gravit y Urine Protein Urine Glucose (UA) Urine Ketones Urine Blood Urine Nitrate Urine Bilirubin Urine Urobilinogen Ur Leukocyte Denia ase Blood Type Rho(D) Type Antibody Screen Vitals: Last Vital Signs Temp 98.4 F 04/18/21 12:00 Pulse 81 04/18/21 12:00 Resp 18 04/18/21 12:00 BP 113/67 04/18/21 12:00 Pulse Ox 96 04/18/21 12:00 Discharge Plan Discharge Patient Disposition: Home Condition: Stable Prescriptions: Continued levothyroxine 25 mcg tablet 25 mcg PO DAILY@799 RF: 0 Xifaxan 550 mg tablet 550 mg PO BID@ RF: 0 omeprazole 20 mg tablet,delayed release (DR/EC) 40 mg PO BID@ RF: 0 spironolactone 100 mg Tablet 200 mg PO QAM RF: 0 lactulose 10 gram/15 mL solution 60 ml PO QID PRN (Reason: Constipation) RF: 0 temazepam 7.5 mg Capsule 7.5 - 15 mg PO BEDTIME PRN (Reason: Insomnia) RF: 0 hydrocodone-acetaminophen 7.5-325 mg Tablet 1 tab PO Q4H PRN (Reason: Pain) RF: 0 multivitamin Tablet 1 tab PO DAILY RF: 0 sucralfate 1 gram tablet 1 g PO .BEFORE MEALS TID RF: 0 Ultram 50 mg Tablet 50 mg PO Q6H PRN (Reason: Pain) RF: 0 triamcinolone acetonide 0.1 % Cream 1 applic TOPICAL BID PRN (Reason: unknown) RF: 0 furosemide 80 mg tablet 80 mg PO QAM RF: 0 ondansetron 4 mg tablet,disintegrating 4 mg PO Q8H PRN (Reason: Nausea And Vomiting) RF: 0 Flonase 50 mcg/actuation [place],Suspension 2 spray INTRANASAL DAILY PRN (Reason: Allergy Symptoms) RF: 0 Discharge Orders: Discharge Order (Routine); Ordered 04/18/21 Ordered By: Parag Slater Referrals: Parag Slater MD [Physician] - 2 weeks Floresita Bustillo DO [Primary Care Provider] - Patient Instructions: Opioid Safety Activity Restrictions/Additional Instructions: Diet Advance to normal diet as tolerated, increase fluid intake as much as possible. Activity Avoid strenuous activity for 2 weeks but continue with daily activities including walking as tolerated. Do not lift more than 10 pounds for 2 weeks Return to work/school You can return to work/ school whenever you feel ready as long as you don?t have to lift more than 10 pounds at work. If you have paperwork that needs to be completed for time off from work, please contact my office Driving You can resume driving once you stop using narcotic pain medications, and transition to non-opioid pain medications like Tylenol, Motrin, Aleve, etc. Medications Pain Take opioid pain medications as prescribed and transition to non-opioid pain medications like Tylenol, Motrin, Aleve etc. over the next few days. The goal of the pain medications is to make the pain bearable and not to be pain free since you recently had surgery. Resume all home medications after surgery as per the medication reconciliation list Nausea Nausea is common after surgery, take nausea medications as needed and stay on a liquid bland diet until nausea resolves. Constipation The combination of surgery, anesthesia and pain medications can result in constipation. Take stool softeners as prescribed. If you do not have a bowel movement in 3 days, please take an [id number] laxative like MiraLAX to address the constipation. Shower It is ok to shower but avoid getting the wound wet for 48 hours after surgery. Do not soak in bathtub, swimming pool or hot tub for 2 weeks. Wound care If glue has been used on your incisions after surgery, the glue on the incision will peel slowly over the next two weeks. The stitches used are dissolvable and will not need to be removed. Do not apply antibiotics or other medications on the incision Problems with the wound: you can develop some redness around the incision from bruising after surgery. If there is increasing pain, redness, tenderness around the incision with or without drainage, please contact my office to rule out an infection. Sometimes the skin at the incisions can separate, resulting in reopening of the wound. Cover the wound with antibiotic cream and sterile dressings and contact my office. Contact physician Call the office at [phone] during office hours or go the Emergency Room ?Fever to 100.4 or greater ?Shaking chills ?Pain that increases over time ?Redness, warmth, or pus draining from incision sites ?Persistent nausea or inability to take in liquids Discharge Attestations Time Spent in Discharge Care*: less than 30 min Status at Discharge: Cognitive status at discharge: cognitively intact, Behavioral status at discharge: cooperative and independent in ADL's, Quality Metrics Clinical Quality Measures During this hospital stay, did patient experience: None Coding Level of Care Code Acute g [facility] note Diagnoses Incarcerated umbilical hernia K42.0
--- NOTE | 2021-04-18 17:46 | PC.NURSE ---
IV removed intact at this time. Patient tolerated well. Patient is A&Ox3. Respirations even and non-labored on room air. Reviewed patient's discharge with patient and his at this time. Patient and verbalized understanding of discharge instructions and of follow up appointments. Patient wheel chaired to private car at this time.
--- NOTE | 2021-04-19 13:02 | PC.SOCIAL ---
discharge follow up call made, spoke with patient. patient is having some pain and nausea. he continues to take hydrocodone and zofran with some relief. discussed the importance of eating when taking medication to prevent nausea. patient is taking a laxative to prevent constipation while taking hydrocodone. patient is advancing his diet slowly, discussed to increase fluid intake as much as possible. discussed with patient tno o avoid strenuous activity for 2 weeks but to continue daily activity such as walking. advised to not lift more than 10 lbs x2 weeks. discussed dressing instructions, that its ok to shower 48 hours following surgery but not soak and the glue may start to peel but to leave in place. patient denies any swelling or redness to incisions. patient is aware of follow up appointment with dr. simental. follow up appointment with pcp made but patient wishes for the appointment to be cancelled and he will make an appointment when its best for him.
== END 2021-04-18 17:30 | disposition home or self-care (01) ==
LOC: ER 23:43 → OPS 04-18 01:37 → MEDSURG 04-18 02:47
PROVIDERS: Admitting Provider Surgery; Emergency Provider Emergency Medicine; PCP Family Medicine; Visit Provider Surgery
PROC: (CPT 49082; principal; 2021-04-18 01:30)
DX: K42.0 Umbilical hernia with obstruction, without gangrene (principal); R18.8 Other ascites; I12.9 Hypertensive chronic kidney disease with stage 1 through stage 4 chronic kidney disease, or unspecified chronic kidney disease; N18.2 Chronic kidney disease, stage 2 (mild); K21.9 Gastro-esophageal reflux disease without esophagitis; E11.22 Type 2 diabetes mellitus with diabetic chronic kidney disease; E03.9 Hypothyroidism, unspecified; G47.33 Obstructive sleep apnea (adult) (pediatric); Z87.891 Personal history of nicotine dependence
CPT/HCPCS: 49082; 49587; 36415; 74177; 80053; 81003; 82728; 83540; 83550; 83605; 83690; 85025; 85610; 85730; 86850; 86900; 88302; 94664; 96361; 96365; 96367; 96375; 97116; 97161; 99285; G0378; G0463; J0690; J1100; J1170; J2270; J2370; J2405; J2704; J3010; J3490; J7030; Q9967

== ENCOUNTER → 2021-05-23 05:56 | Day surgery (SDC) | payer MEDICARE, OTHER, SELFPAY ==
[2021-05-23 06:18] VITALS: BMI 24.9
--- NOTE | 2021-05-23 06:24 | US_ITS ---
WS: [id number] ULTRASOUND-GUIDED THERAPEUTIC AND DIAGNOSTIC PARACENTESIS Procedure, risks, and complications have been explained to the patient. Consent is obtained. Utilizing aseptic technique and 1% buffered lidocaine, a small dermatome was made through which a 5 F rench Yueh catheter was inserted. Approximately 7400 ml of clear peritoneal fluid was obtained witho ut difficulty. No complications encountered. Specimen collected for analysis as requested. US/US paracentesis abd w [id number] IMPRESSION: Uncomplicated paracentesis yielding 7400 ml of peritoneal fluid.
[2021-05-23 06:42] VITALS: BP 133/77; PULSE 86; RESP 18; TEMP 36.2; O2SAT 98
[2021-05-23 08:09] LABS: Body Fluid Polynuclear #Cells 0.003; Body Fluid WBC 60 /uL; Monocytes # Body Fluid 0.057; RBC, Body Fluid 0 10^3/uL
[2021-05-23 09:02] LABS: Apprearance, Body Fluid CLEAR; Color, Body Fluid PALE YELLOW; PATH Referral YES
[2021-05-23 09:35] VITALS: BP 105/57; PULSE 84; RESP 16; TEMP 36.5; O2SAT 98
== END ==
PROVIDERS: Radiology Diagnostic Radiology; PCP Family Medicine; Visit Provider Internal Medicine Gastroenterology
DX: K74.60 Unspecified cirrhosis of liver (principal)
CPT/HCPCS: 36415; 49083; 80500; 85610; 87070; 87075; 87205; 89050; 96365; P9047

== ENCOUNTER → 2021-05-31 10:06 | Day surgery (SDC) | payer MEDICARE, OTHER, SELFPAY ==
[2021-05-31] VITALS (7 sets, daily range): BP systolic 100–119; BP diastolic 57–71; PULSE 83–97; RESP 16–18; TEMP 36.1–36.3; O2SAT 94–98; BMI 22.1
--- NOTE | 2021-05-31 10:33 | US_ITS ---
WS: [id number] ULTRASOUND-GUIDED PARACENTESIS CLINICAL INFORMATION: CIRRHOSIS OF LIVER COMPARISON: None. Procedure Informed consent: The risks, benefits, and alternatives of the procedure were discussed with the sajan ent. Verbal and written consent was obtained. Timeout: A timeout was performed to confirm the correct patient, procedure, and site. Preparation: A suitable skin site was identified. The patient was prepped and draped in usual sterile fashion. Lidocaine 1% was used for local anesthesia. Catheter: 4 [place] One-step Yueh catheter. Side: Left Lower quadrant. Fluid Volume: 3400 ml Color: Clear yellow DISPOSITION: Discarded safely. Complications: None. Patient disposition: Discharged from the department in stable condition. US/US paracentesis abd w [id number] IMPRESSION: Uncomplicated ultrasound-guided paracentesis. Removal of 3400 cc
[2021-05-31 11:25] LABS: INR 1.23 (0.8-1.2)
[2021-05-31 13:42] LABS: Body Fluid Polynuclear #Cells 0.102; Body Fluid WBC 771 /uL; Monocytes # Body Fluid 0.669
--- NOTE | 2021-05-31 13:59 | PC.NURSE ---
Small skin tear noted with removal of venagaurd for IV. Minimal bleeding. Cleansed with NS, non-stick telfa and tegaderm applied.
[2021-05-31 14:02] LABS: Apprearance, Body Fluid TURBID; Color, Body Fluid YELLOW
== END ==
PROVIDERS: Radiology Neuroradiology; PCP Family Medicine; Visit Provider Internal Medicine Gastroenterology
DX: K74.60 Unspecified cirrhosis of liver (principal)
CPT/HCPCS: 36415; 49083; 85610; 87070; 87075; 87205; 89050; 96365; P9047

== ENCOUNTER 2021-06-01 12:30 | Outpatient (CLI) | payer MEDICARE, OTHER, SELFPAY ==
[2021-06-01 14:08] LABS: INR 1.27 (0.8-1.2)
[2021-06-01 14:24] LABS: Alanine Aminotransferase 30 U/L (0-41); Albumin Level 3.7 g/dL (3.5-5.2); Alkaline Phosphatase 76 IU/L (40-130); Anion Gap 20.4 (5-19); Aspartate Amino Transferase 29 U/L (0-40); Blood Urea Nitrogen 31 mg/dL (8-23); Calcium 9.5 mg/dL (8.5-10.5); Carbon Dioxide 19 mmol/L (22-29); Chloride 93 mmol/L (98-107); Globulin 3.5 g/dL (1.3-4.6); Glomerular Filtration Rate 60.8 mL/min (90-130); Glucose 186 mg/dL (65-115); Osmolality Calculated 273 mOsm/kg (285-295); Potassium 6.4 mmol/L (3.5-5.1); Sodium 126 mmol/L (136-145); Total Bilirubin 1.5 mg/dL (0.15-1.2); Total Protein 7.2 g/dL (6.6-8.7)
== END 2021-06-01 12:31 | disposition home or self-care (01) ==
LOC: LAB 12:44
PROVIDERS: PCP Family Medicine; Visit Provider Internal Medicine Gastroenterology
DX: Z01.818 Encounter for other preprocedural examination (principal); K75.81 Nonalcoholic steatohepatitis (NASH); K70.30 Alcoholic cirrhosis of liver without ascites
CPT/HCPCS: 36415; 80053; 85610

== ENCOUNTER 2021-06-03 17:01 | Inpatient (IN) | payer MEDICARE, OTHER, SELFPAY ==
[2021-06-03 17:06] VITALS: BP 99/65; PULSE 95; RESP 18; TEMP 36.3; O2SAT 98; BMI 22.5
--- NOTE | 2021-06-03 17:45 | W.ED.GENADLT ---
HPI - General Adult General: Chief complaint: General Medical Stated complaint: Poss Pneumonia Time Seen by Provider: 06/03/21 17:14 History of Present Illness: HPI narrative: Patient is a 66-year-old male with history of alcoholic cirrhosis complicated by hepatic encephalopathy currently on the transplant list presenting to the emergency room with complaints of confusion since paracentesis on Saturday. Per patient's , patient became increasingly confused since . Patient has an ammonia level of 80 from routine blood work on . Patient did not have any fever or chills, diarrhea, abdominal complaints following the paracentesis. Patient's attempted to give patient lactulose without significant improvement in symptoms. Patient has unable to tolerate the lactulose. Onset:3 days ago Duration:3 days Location:home Severity:moderate Review of Systems Narrative: Constitutional: No fever, no chills. HEENT: No vision changes CV: No chest pain, no palpitations PULM: no cough, no dyspnea. GI: No abdominal pain, no N/V/D. : No dysuria MSKEL: No muscle pain SKIN: No new rashes, no lesions. NEURO: No headache, no focal weakness. HEME: No visible bruises PSYCH: Normal mood PFSH ED PFSH: Medical History Acute hyponatremia -improved with hydration, on salt tablets -suspect some degree of this will persist chronically CKD (chronic kidney disease) stage 2, GFR 60-89 ml/min -baseline Cr wnl -current renal function at baseline GERD (gastroesophageal reflux disease) Hepatic encephalopathy -noted ammonia-69; mentation at baseline -on lactulose History of cirrhosis of liver -has been following up at [facility] in [place], less frequently lately due to coronavirus pandemic -normal LFTs History of diabetes mellitus -resume oral meds Hypertension -VSS -discontinue ARB, continue Aldactone; due to low normal BP and risk of hypotension Hypothyroidism -TSH wnl -continue levothyroxine Obstructive sleep apnea -CPAP qhs Surgical History H/O esophagogastroduodenoscopy (03/08/20) History of appendectomy History of arthroscopic knee surgery History of surgery on upper extremity History of umbilical hernia repair (04/18/21) History of vasectomy Family History Other Diabetes Social History Smoking and tobacco status: never smoked Quit status (tobacco): has quit using tobacco Alcohol intake: former Physical Exam Narrative: EXAM NARRATIVE: Head: Atraumatic Eyes: PERRL, conjunctiva without injection ENT: Mucous membrane moist NECK: Supple, ROM intact LUNGS: LCTAB, no crackles/rhonchi CV: RRR ABDOMEN: Soft, ND, no focal TTP. NO guarding rebound, guarding, rigidity. No CVA tenderness to percussion. Neg Wu/Neg McBurney's point tenderness, no suprabupic tenderness to palpation. EXTREMITY: Normal ROM, +asterixis SKIN: No rash or erythema NEURO: Awake and alert, no focal motor deficits PSYCH: Normal mood and affect Course Vital Signs: Vital signs: Vital Signs Temperature 97.9 F 06/06/21 07:41 Pulse Rate 96 06/06/21 07:41 Respiratory Rate 16 06/06/21 07:41 Blood Pressure 109/72 06/06/21 07:41 Pulse Oximetry 97 06/06/21 07:41 MDM - General Adult MDM Narrative: Medical decision making narrative: Patient is a 66-year-old male with a history of alcoholic cirrhosis, presented to the emergency room with altered mental status since paracentesis x3 days. On exam, patient appears to be confused AAO x2 occasionally responding to questions. No other focal neurological deficits. Abdominal appears to be soft nondistended. Work-up: CBC, CMP, lipase, UA, ammonia Ammonia within normal limit. CMP significant for potassium 6.0, sodium 125. EKG changes for hyperkalemia not preserved. UA negative for any signs of UTI. CT brain negative for any acute findings. X-rays negative for any occult pneumonia. At the present time, given hyperkalemia and hyponatremia, random cortisol level was ordered which was normal. Patient will be admitted to the hospital for further work-up of altered mental status, hyperkalemia, and hyponatriemia Disposition: Admission Lab Data: Labs: Lab Results 06/03/21 06/03/21 06/03/21 17:39 17:39 17:39 WBC 6.3 10^3/uL 10^3/ uL (4.0-10.0) RBC 4.23 10^6/uL 10^6 /uL (4.1-5.3) Hgb 12.6 g/dL g/dL (11.7-16.6) Hct 38.0 % L % (42.0-52.0) MCV 89.8 fl fl (80-94) MCH 29.8 pg pg (28.0-34.0) MCHC 33.2 g/dL g/dL (30.0-36.0) RDW 14.2 % % (12.1-15.1) Plt Count 218 10^3/cmm 10^3 /cmm (130-400) MPV 9.9 fL fL (7.4-10.4) Neut % (Auto) 70.3 % % Lymph % (Auto) 11.5 % % [place] % (Auto) 14.2 % % Eos % (Auto) 2.4 % % Baso % (Auto) 1.1 % % Neut # (Auto) 4.42 10^3/uL 10^3 /uL (1.8-7.7) Lymph # (Auto) 0.7 10^3/uL L 10^ 3/uL (0.8-4.8) [place] # (Auto) 0.9 10^3/uL 10^3/ uL (0.2-0.9) Eos # (Auto) 0.2 10^3/uL 10^3/ uL (0.0-0.8) Baso # (Auto) 0.1 10^3/uL 10^3/ uL (0.0-0.1) Nucleated RBC % (a uto) 0 % % Nucleated RBCs # 0.0 /100WBC /100W BC Sodium 125 mmol/L L mmol /L (136-145) Potassium 6.0 mmol/L H mmol /L (3.5-5.1) Chloride 91 mmol/L L mmol/ L (98-107) Carbon Dioxide 17 mmol/L L mmol/ L (22-29) Anion Gap 23.0 H (5-19) BUN 29 mg/dL H mg/dL (8-23) Creatinine 1.1 mg/dL mg/dL (0.7-1.2) GFR Calculation 67.2 mL/min L mL/ min (90-130) Glucose 211 mg/dL H mg/dL (65-115) Calculated Osmolal ity 272 mOsm/kg L mOs m/kg (285-295) Lactate 2.9 mmol/L H mmol /L (0.5-2.2) Calcium 9.5 mg/dL mg/dL (8.5-10.5) Total Bilirubin 1.5 mg/dL H mg/dL (0.15-1.2) AST 34 U/L U/L (0-40) ALT 37 U/L U/L (0-41) Alkaline Phosphata se 82 IU/L IU/L (40-130) Ammonia Troponin T Gen 5 n g/L Total Protein 7.5 g/dL g/dL (6.6-8.7) Albumin 3.8 g/dL g/dL (3.5-5.2) Globulin 3.7 g/dL g/dL (1.3-4.6) Lipase 74 U/L H U/L (13-60) TSH Random Cortisol Urine Color Urine Appearance Urine pH Ur Specific Gravit y Urine Protein Urine Glucose (UA) Urine Ketones Urine Blood Urine Nitrate Urine Bilirubin Urine Urobilinogen Ur Leukocyte Denia ase 06/03/21 06/03/21 06/03/21 17:39 17:39 17:39 WBC RBC Hgb Hct MCV MCH MCHC RDW Plt Count MPV Neut % (Auto) Lymph % (Auto) [place] % (Auto) Eos % (Auto) Baso % (Auto) Neut # (Auto) Lymph # (Auto) [place] # (Auto) Eos # (Auto) Baso # (Auto) Nucleated RBC % (a uto) Nucleated RBCs # Sodium Potassium Chloride Carbon Dioxide Anion Gap BUN Creatinine GFR Calculation Glucose Calculated Osmolal ity Lactate Calcium Total Bilirubin AST ALT Alkaline Phosphata se Ammonia 47 umol/L umol/L (16-60) Troponin T Gen 5 n g/L 41 ng/L H ng/L (0-15) Total Protein Albumin Globulin Lipase TSH Random Cortisol 8.65 ug/dL ug/dL (2.47-19.5) Urine Color Urine Appearance Urine pH Ur Specific Gravit y Urine Protein Urine Glucose (UA) Urine Ketones Urine Blood Urine Nitrate Urine Bilirubin Urine Urobilinogen Ur Leukocyte Denia ase 06/03/21 06/03/21 06/04/21 17:39 18:26 04:29 WBC 6.2 10^3/uL 10^3/ uL (4.0-10.0) RBC 3.46 10^6/uL L 10 ^6/uL (4.1-5.3) Hgb 10.0 g/dL L g/dL (11.7-16.6) Hct 30.3 % L % (42.0-52.0) MCV 87.6 fl fl (80-94) MCH 28.9 pg pg (28.0-34.0) MCHC 33.0 g/dL g/dL (30.0-36.0) RDW 14.2 % % (12.1-15.1) Plt Count 197 10^3/cmm 10^3 /cmm (130-400) MPV 9.6 fL fL (7.4-10.4) Neut % (Auto) 65.2 % % Lymph % (Auto) 13.1 % % [place] % (Auto) 17.6 % % Eos % (Auto) 2.6 % % Baso % (Auto) 1.0 % % Neut # (Auto) 4.03 10^3/uL 10^3 /uL (1.8-7.7) Lymph # (Auto) 0.8 10^3/uL 10^3/ uL (0.8-4.8) [place] # (Auto) 1.1 10^3/uL H 10^ 3/uL (0.2-0.9) Eos # (Auto) 0.2 10^3/uL 10^3/ uL (0.0-0.8) Baso # (Auto) 0.1 10^3/uL 10^3/ uL (0.0-0.1) Nucleated RBC % (a uto) 0 % % Nucleated RBCs # 0.0 /100WBC /100W BC Sodium Potassium Chloride Carbon Dioxide Anion Gap BUN Creatinine GFR Calculation Glucose Calculated Osmolal ity Lactate Calcium Total Bilirubin AST ALT Alkaline Phosphata se Ammonia Troponin T Gen 5 n g/L Total Protein Albumin Globulin Lipase TSH 7.24 uIU/mL H uIU /mL (0.27-4.20) Random Cortisol Urine Color Yellow (Yellow) Urine Appearance Clear (CLEAR) Urine pH 5 (5-7) Ur Specific Gravit y 1.015 (1.005-1.030) Urine Protein Neg (Negative) Urine Glucose (UA) Norm (Normal) Urine Ketones Negative (Negative) Urine Blood Neg (Negative) Urine Nitrate Negative (Negative) Urine Bilirubin Neg (Negative) Urine Urobilinogen Norm mg/dL mg/dL (Negative) Ur Leukocyte Denia ase Negative (Negative) 06/04/21 06/04/21 06/04/21 04:29 13:32 13:32 WBC RBC Hgb Hct MCV MCH MCHC RDW Plt Count MPV Neut % (Auto) Lymph % (Auto) [place] % (Auto) Eos % (Auto) Baso % (Auto) Neut # (Auto) Lymph # (Auto) [place] # (Auto) Eos # (Auto) Baso # (Auto) Nucleated RBC % (a uto) Nucleated RBCs # Sodium 122 mmol/L L mmol /L Cancelled 121 mmol/L L mmol /L (136-145) (136-145) Potassium 5.5 mmol/L H mmol /L Cancelled 5.0 mmol/L mmol/L (3.5-5.1) (3.5-5.1) Chloride 91 mmol/L L mmol/ L Cancelled 88 mmol/L L mmol/ L (98-107) (98-107) Carbon Dioxide 19 mmol/L L mmol/ L Cancelled 21 mmol/L L mmol/ L (22-29) (22-29) Anion Gap 17.5 Cancelled 17.0 (5-19) (5-19) BUN 30 mg/dL H mg/dL Cancelled 31 mg/dL H mg/dL (8-23) (8-23) Creatinine 1.2 mg/dL mg/dL Cancelled 1.3 mg/dL H mg/dL (0.7-1.2) (0.7-1.2) GFR Calculation 60.8 mL/min L mL/ min Cancelled 55.4 mL/min L mL/ min (90-130) (90-130) Glucose 162 mg/dL H mg/dL Cancelled 227 mg/dL H mg/dL (65-115) (65-115) Calculated Osmolal ity 264 mOsm/kg L mOs m/kg Cancelled 266 mOsm/kg L mOs m/kg (285-295) (285-295) Lactate Calcium 9.2 mg/dL mg/dL Cancelled 9.4 mg/dL mg/dL (8.5-10.5) (8.5-10.5) Total Bilirubin 1.5 mg/dL H mg/dL Cancelled 1.4 mg/dL H mg/dL (0.15-1.2) (0.15-1.2) AST 26 U/L U/L Cancelled 30 U/L U/L (0-40) (0-40) ALT 29 U/L U/L Cancelled 33 U/L U/L (0-41) (0-41) Alkaline Phosphata se 66 IU/L IU/L Cancelled 80 IU/L IU/L (40-130) (40-130) Ammonia Troponin T Gen 5 n g/L Total Protein 6.4 g/dL L g/dL Cancelled 6.8 g/dL g/dL (6.6-8.7) (6.6-8.7) Albumin 3.2 g/dL L g/dL Cancelled 3.4 g/dL L g/dL (3.5-5.2) (3.5-5.2) Globulin 3.2 g/dL g/dL Cancelled 3.4 g/dL g/dL (1.3-4.6) (1.3-4.6) Lipase TSH Random Cortisol Urine Color Urine Appearance Urine pH Ur Specific Gravit y Urine Protein Urine Glucose (UA) Urine Ketones Urine Blood Urine Nitrate Urine Bilirubin Urine Urobilinogen Ur Leukocyte Denia ase Imaging Data^: Other Imaging: Radiologist's impression: [address] [id number] ReportSigned Patient: Luis Muñoz #: [id number]: 6Acct#:[id number]/Sex: 66 / MADM Date: 06/03/21Loc: ERRoom/Bed:Attending Dr: Ordering Provider/Ordering MD: Adonis Francisco MD Date of Service: 06/03/21 Procedure(s): XR chest 1V portable [id number] Accession Number(s): [id number] Report Number: [id number] PROCEDURE INFORMATION: Exam: XR Chest Exam date and time: 06/03/2021 7:13 PM Age: 66 years old Clinical indication: Other: AMS TECHNIQUE: Imaging protocol: XR of the chest. Views: 1 view. COMPARISON: CR XR chest 1V portable [id number] 02/19/2021 11:49 AM FINDINGS: Lungs: Unremarkable. No consolidation. Pleural spaces: Unremarkable. No pleural effusion. No pneumothorax. Heart/Mediastinum: Unremarkable. No cardiomegaly. Bones/joints: Unremarkable. XR/XR chest 1V portable [id number] IMPRESSION: No acute findings. Radiation Dose CTDIVOL = (mGy): DLP = (mGy-cm) Dictated By:Miguel EvansinSderic By:Carrol Evans Date/Time:06/03/21/ [address] [id number] Scan ReportSigned Patient: Luis Muñoz #: [id number]: 1955cct#:[id number]/Sex: 66 / MADM Date: 06/03/21Loc: ERRoom/Bed:Attending Dr: Ordering Provider/Ordering MD: Adonis Francisco MD Date of Service: 06/03/21 Procedure(s): CT head wo con* [id number] Accession Number(s): [id number] Report Number: [id number] PROCEDURE INFORMATION: Exam: CT Head Without Contrast Exam date and time: 06/03/2021 6:21 PM Age: 66 years old Clinical indication: Altered mental status/memory loss; Confusion or disorientation; Patient HX: Ams/confusion x 3 days TECHNIQUE: Imaging protocol: Computed tomography of the head without contrast. Radiation optimization: All CT scans at this facility use at least one of these dose optimization techniques: automated exposure control; mA and/or kV adjustment per patient size (includes targeted exams where dose is matched to clinical indication); or iterative reconstruction. COMPARISON: CT head wo con* [id number] 02/19/2021 11:59 AM RADIATION DOSE METRICS: Total DLP (mGy-cm): 960.95 FINDINGS: Brain: Mild to moderate diffuse cerebral cortical volume loss. No hemorrhage. Unremarkable white matter. No mass effect. Cerebral ventricles: No ventriculomegaly. Paranasal sinuses: Visualized sinuses are unremarkable. No fluid levels. Mastoid air cells: Visualized mastoid air cells are well aerated. Bones/joints: Unremarkable. No acute fracture. Soft tissues: Unremarkable. CT/CT head wo con* [id number] IMPRESSION: No acute intracranial abnormality. Radiation Dose CTDIVOL = (mGy): DLP = 960.95 (mGy-cm) Dictated By:Carrol Evans By:Carrol Evans Date/Time:06/03/212DD/ 20 Discharge Plan Discharge Patient Disposition: Admitted As Inpatient Admit Provider: Brandy Perry Clinical Impression: Hyperkalemia, Hyponatremia Altered mental status Qualifiers: Altered mental status type: unspecified Qualified Code(s): R41.82 - Altered mental status, unspecified Condition: Stable Coding Level of Care Code ED Court Usher for Yehuda Little
[2021-06-03 17:48] LABS: Basophils # 0.1 10^3/uL (0.0-0.1); Basophils % 1.1 %; Eosinophils # 0.2 10^3/uL (0.0-0.8); Eosinophils % 2.4 %; Hemoglobin 12.6 g/dL (11.7-16.6); Lymphocytes # 0.7 10^3/uL (0.8-4.8); Lymphocytes % 11.5 %; Mean Corpuscular HGB Conc 33.2 g/dL (30.0-36.0); Mean Corpuscular Hemoglobin 29.8 pg (28.0-34.0); Mean Corpuscular Volume 89.8 fl (80-94); Mean Platelet Volume 9.9 fL (7.4-10.4); Monocytes # 0.9 10^3/uL (0.2-0.9); Monocytes % 14.2 %; Neutrophils # 4.42 10^3/uL (1.8-7.7); Neutrophils % 70.3 %; Nucleated Red Blood Cells % 0 %; Platelet Count 218 10^3/cmm (130-400); Red Blood Count 4.23 10^6/uL (4.1-5.3); Red Cell Distribution Width 14.2 % (12.1-15.1); White Blood Count 6.3 10^3/uL (4.0-10.0)
[2021-06-03 18:08] LABS: Ammonia 47 umol/L (16-60)
[2021-06-03 18:10] LABS: Alanine Aminotransferase 37 U/L (0-41); Albumin Level 3.8 g/dL (3.5-5.2); Alkaline Phosphatase 82 IU/L (40-130); Aspartate Amino Transferase 34 U/L (0-40); Blood Urea Nitrogen 29 mg/dL (8-23); Calcium 9.5 mg/dL (8.5-10.5); Carbon Dioxide 17 mmol/L (22-29); Chloride 91 mmol/L (98-107); Globulin 3.7 g/dL (1.3-4.6); Glomerular Filtration Rate 67.2 mL/min (90-130); Glucose 211 mg/dL (65-115); Lipase 74 U/L (13-60); Osmolality Calculated 272 mOsm/kg (285-295); Sodium 125 mmol/L (136-145); Total Bilirubin 1.5 mg/dL (0.15-1.2); Total Protein 7.5 g/dL (6.6-8.7)
[2021-06-03 18:11] LABS: Lactate (Lactic Acid level) 2.9 mmol/L (0.5-2.2)
--- NOTE | 2021-06-03 18:21 | CTR_ITS ---
PROCEDURE INFORMATION: Exam: CT Head Without Contrast Exam date and time: 06/03/2021 6:21 PM Age: 66 years old Clinical indication: Altered mental status/memory loss; Confusion or disorientation; Patient HX: Ams/confusion x 3 days TECHNIQUE: Imaging protocol: Computed tomography of the head without contrast. Radiation optimization: All CT scans at this facility use at least one of these dose optimization techniques: automated exposure control; mA and/or kV adjustment per patient size (includes targeted exams where dose is matched to clinical indication); or iterative reconstruction. COMPARISON: CT head wo con* [id number] 02/19/2021 11:59 AM RADIATION DOSE METRICS: Total DLP (mGy-cm): 960.95 FINDINGS: Brain: Mild to moderate diffuse cerebral cortical volume loss. No hemorrhage. Unremarkable white matter. No mass effect. Cerebral ventricles: No ventriculomegaly. Paranasal sinuses: Visualized sinuses are unremarkable. No fluid levels. Mastoid air cells: Visualized mastoid air cells are well aerated. Bones/joints: Unremarkable. No acute fracture. Soft tissues: Unremarkable. CT/CT head wo con* [id number] IMPRESSION: No acute intracranial abnormality. Radiation Dose CTDIVOL = (mGy): DLP = 960.95 (mGy-cm)
--- NOTE | 2021-06-03 18:21 | ECG_ITS ---
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 Measurements Intervals [place] Rate: 82 P: 13 CA: 139 QRS: 33 QRSD: 75 T: 59 QT: 325 QTc: 381 Interpretive Statements SINUS RHYTHM Compared to ECG 02/19/2021 12:44:12 No significant changes Electronically Signed On 06-03-2021 22:06:51 [employer] by Skyler Navarrete M.D. [id number]
[2021-06-03 18:36] LABS: Add Urine Microscopic? NO; Charge for UA Resulting for Rev
[2021-06-03 18:43] LABS: Bilirubin Urine Neg (Negative); Blood Urine Neg (Negative); Glucose Urine UA Norm (Normal); Ketones Urine Negative (Negative); Leukocyte Esterase Urine Negative (Negative); Nitrate Urine Negative (Negative); Protein Urine Neg (Negative); Specific Gravity, Urine 1.015 (1.005-1.030); Urine Appearance Clear (CLEAR); Urine Color Yellow (Yellow); Urobilinogen Urine Norm (Negative); pH Urine 5 (5-7)
[2021-06-03 18:56] LABS: Troponin T (5th) Once 41 ng/L (0-15)
[2021-06-03 19:06] LABS: Cortisol Random 8.65 ug/dL (2.47-19.5)
[2021-06-03] MEDS: sodium chloride 0.9% 500 ML IV (19:11)
[2021-06-03] MEDS: FUROsemide 10 mg/mL SDV 4mL 40 MG IVP (19:11)
--- NOTE | 2021-06-03 19:12 | ECG_ITS ---
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 Measurements Intervals [place] Rate: 80 P: 38 AR: 134 QRS: 63 QRSD: 78 T: 72 QT: 337 QTc: 390 Interpretive Statements SINUS RHYTHM Compared to ECG 06/03/2021 18:36:05 No significant changes Electronically Signed On 06-03-2021 22:19:59 [employer] by Skyler Navarrete M.D. [id number]
--- NOTE | 2021-06-03 19:13 | XRR_ITS ---
PROCEDURE INFORMATION: Exam: XR Chest Exam date and time: 06/03/2021 7:13 PM Age: 66 years old Clinical indication: Other: AMS TECHNIQUE: Imaging protocol: XR of the chest. Views: 1 view. COMPARISON: CR XR chest 1V portable [id number] 02/19/2021 11:49 AM FINDINGS: Lungs: Unremarkable. No consolidation. Pleural spaces: Unremarkable. No pleural effusion. No pneumothorax. Heart/Mediastinum: Unremarkable. No cardiomegaly. Bones/joints: Unremarkable. XR/XR chest 1V portable [id number] IMPRESSION: No acute findings. Radiation Dose CTDIVOL = (mGy): DLP = (mGy-cm)
[2021-06-03 20:08] VITALS: BP 113/63; PULSE 81; RESP 18; O2SAT 99
[2021-06-03 21:01] VITALS: BP 113/63; PULSE 86; RESP 18; O2SAT 97
[2021-06-03 21:33] VITALS: BMI 21.0
[2021-06-04] VITALS (7 sets, daily range): BP systolic 96–112; BP diastolic 58–67; PULSE 80–98; RESP 16–18; TEMP 36.7–37.1; O2SAT 95–99
[2021-06-04] MEDS: dextrose 50% syringe 50 mL IVP ×2 (00:41→08:24)
[2021-06-04] MEDS: lactulose oral liq 20 gm/30 mL UDC PO ×6 (00:41→20:01)
--- NOTE | 2021-06-04 00:46 | PC.NURSE ---
spoke with Jamison from pharm d/t ivp insulin requiring a rate as if it were an infusion. he states to enter a high rate example: 200ml/hr just to satisfy [place]. Jamison states this is the only way they can enter the medication.
[2021-06-04] MEDS: insulin regular-human 10 UNIT in SYRINGE 1 EACH 200 UNIT IVP (00:53)
[2021-06-04 01:19] LABS: Thyroid Stimulating Hormone 7.24 uIU/mL (0.27-4.20)
[2021-06-04] MEDS: FUROsemide 40 mg Tablet 80 MG PO (05:13)
[2021-06-04] MEDS: sucralfate 1 gm Tablet PO ×3 (06:14→17:08)
--- NOTE | 2021-06-04 06:32 | P.HP_ITS ---
Providers/Chief Complaint Admitting Physician: Brandy Perry MD Primary Care Provider: Floresita Bustillo DO Chief Complaint: Poss Pneumonia History of Present Illness Luis Muñoz is a 66 year old male with PMH liver cirrhosis with anasarca s/p recent frequent paracentesis, hepatic encephalopathy p/w generalized weakness, reposrted confusion per family described as word finding difficulty, increased forgetfullness. Patient is on daily lactulose and rifaximin combination for hepatic encephalopathy, states he has not had frequent BMs in the last 3-4 days. His usual frequency 3-4 per day, but curently having only one BM per day. No focal motor deficits otherwise. ROS negative for fever, chills, abdominal pain, nausea, vomiting. Review of Systems General: Reports: 10 or more systems reviewed and unremarkable except in HPI and below Const: Denies: fever(s), chills or body aches Eyes: Denies: change in vision, blurry vision or photophobia ENMT: Reports: hoarseness; Denies: throat pain, enlarged tonsils, odynophagia or nasal congestion Card: Denies: chest pain, palpitations, irregular heart rhythm, edema, swelling of feet/ankles, lightheadedness, pre-syncope, dyspnea on exertion or orthopnea Resp: Denies: dyspnea, productive cough, non-productive cough, wheezing, stridor, pain on inspiration, change in phlegm color, hemoptysis or chest congestion GI: Denies: abdominal pain, nausea, vomiting, hematemesis, coffee ground emesis, dysphagia, heartburn, diarrhea, constipation, GI cramping, change in stool character, hematochezia or melena : Denies: flank pain, dysuria, urinary frequency, urinary urgency, urinary hesitancy or hematuria Musc: Denies: neck pain, back pain, extremity pain, joint swelling, joint warmth or deformity Neuro: Denies: headache(s), numbness in extremities, weakness in extremities, sensory changes, difficulty walking, frequent falls, dizziness, vertigo, behavioral changes, Slurred speech present or seizure-like activity Psych: Denies: anxiety, depression, suicidal ideation or homicidal ideation Endo: Denies: polyuria, polydipsia, tired all the time, cold intolerance or hot flashes Ravi/Lymph: Denies: easy bruising or easy bleeding Medications/Allergies Home Medications Medication Instructions Recorded Confirmed Last Taken Type Xifaxan 550 mg PO BID 02/16/20 06/03/21 06/03/21 08:00 History levothyroxine 25 mcg PO DAILY@0800 02/16/20 06/03/21 06/03/21 08:00 History lactulose 60 ml PO QID PRN 03/07/20 06/03/21 06/03/21 09:00 History omeprazole 40 mg PO BID@799,199907/30/20 06/03/21 06/03/21 13:00 History spironolactone 200 mg PO BID 03/15/21 06/03/21 06/03/21 08:00 History fluticasone propionate [Flonase 2 spray INTRANASAL DAILY PRN 04/18/21 06/03/21 1 08/03/20 09:00 History Allergy Relief] furosemide 80 mg PO QAM 04/18/21 06/03/21 06/03/21 08:00 History hydrocodone-acetaminophen 1 tab PO Q6H PRN #20 tab 04/18/21 06/03/21 05/22/21 Rx multivitamin 1 tab PO DAILY 04/18/21 06/03/21 06/03/21 08:00 History ondansetron 4 mg PO Q8H PRN 04/18/21 06/03/21 05/22/21 History sucralfate 1 g PO .BEFORE MEALS TID 04/18/21 06/03/21 06/03/21 13:00 History Allergies Allergy/AdvReac Type Severity Reaction Status Date / Time Sulfa (Sulfonamide Allergy ALGY-Rash Verified 06/03/21 17:06 Antibiotics) PFSH Acute PFSH: Medical History Acute hyponatremia -improved with hydration, on salt tablets -suspect some degree of this will persist chronically CKD (chronic kidney disease) stage 2, GFR 60-89 ml/min -baseline Cr wnl -current renal function at baseline GERD (gastroesophageal reflux disease) Hepatic encephalopathy -noted ammonia-69; mentation at baseline -on lactulose History of cirrhosis of liver -has been following up at [facility] in [place], less frequently lately due to coronavirus pandemic -normal LFTs History of diabetes mellitus -resume oral meds Hypertension -VSS -discontinue ARB, continue Aldactone; due to low normal BP and risk of hypotension Hypothyroidism -TSH wnl -continue levothyroxine Obstructive sleep apnea -CPAP qhs Surgical History H/O esophagogastroduodenoscopy (03/08/20) History of appendectomy History of arthroscopic knee surgery History of surgery on upper extremity History of umbilical hernia repair (04/18/21) History of vasectomy Family History Other Diabetes Social History Smoking and tobacco status: never smoked Quit status (tobacco): has quit using tobacco Alcohol intake: former Vitals/I&O/Wt Last Vital Signs Temp 98.8 F 06/04/21 04:00 Pulse 80 06/04/21 04:00 Resp 17 06/04/21 04:00 BP 100/59 06/04/21 04:00 Pulse Ox 95 06/04/21 04:00 06/03/21 06/03/21 06/04/21 14:59 22:59 06:59 Intake Total 851 / 851 0.1 / 851.1 Balance 851 / 851 0.1 / 851.1 Weight last 48 hrs Weight 74.417 kg Weight 75.296 kg Physical Exam Narrative: EXAM NARRATIVE: General: No acute distress, AO x3 HEENT: PERRLA, pupils bilaterally equal and reactive, pallors not present Chest: Normal vesicular breath sounds, no added sounds, equal good air entry bilaterally CVS: S1-S2 regular, no murmurs, no tachycardia, no gallops, no rubs Abdomen: Soft, nontender, no organomegaly, bowel sounds present Neuro: No focal deficits, no facial deformity, AO x3, power 5/5 in all limbs Extremities: no edema Data : 06/03/21 17:39 06/03/21 17:39 A&P Assessment and plan (1) Altered mental status: currently patient noted to be alert and awake, able to tell me his name, age has some mild forgetfullness such as forgetting terms for hepatitis, lactulose etc however recalls with promting. No flapping tremors. Increase lactulose to 20mg q4h schedule, titrate to 5-6 BM per day Ammonia level 2 days ago at 80 continue rifaximin Suspect cause to be hepatic encephalopathy. Status: Acute Qualifiers: Altered mental status type: unspecified Qualified Code(s): R41.82 - Altered mental status, unspecified (2) Hyperkalemia: recently increased po K supplementation and spirinolcatone dosing due to increase in lasix dosing to minimize anasarca. Suspect excess po supplementation to be the cause Insulin 10U/Dextrose iv now , recheck CMP at 3AM tele monitoring, no current EKG changes Status: Acute (3) Hyponatremia: close to recent baseline. Status: Acute Attestations Medical Necessity Statement*: observation admission for management of hepatic encephalopathy and hyperkalemia Coding Level of Care Code Acute Receiving Barn Custodian for Chg Fwd Diagnoses Altered mental status R41.82 Altered mental status type: unspecified Hyperkalemia E87.5 Hyponatremia E87.1
[2021-06-04 07:01] LABS: Basophils # 0.1 10^3/uL (0.0-0.1); Eosinophils # 0.2 10^3/uL (0.0-0.8); Eosinophils % 2.6 %; Hematocrit 30.3 % (42.0-52.0); Lymphocytes # 0.8 10^3/uL (0.8-4.8); Lymphocytes % 13.1 %; Mean Corpuscular Hemoglobin 28.9 pg (28.0-34.0); Mean Corpuscular Volume 87.6 fl (80-94); Mean Platelet Volume 9.6 fL (7.4-10.4); Monocytes # 1.1 10^3/uL (0.2-0.9); Monocytes % 17.6 %; Neutrophils # 4.03 10^3/uL (1.8-7.7); Neutrophils % 65.2 %; Nucleated Red Blood Cells % 0 %; Platelet Count 197 10^3/cmm (130-400); Red Blood Count 3.46 10^6/uL (4.1-5.3); Red Cell Distribution Width 14.2 % (12.1-15.1); White Blood Count 6.2 10^3/uL (4.0-10.0)
[2021-06-04 07:40] LABS: Alanine Aminotransferase 29 U/L (0-41); Albumin Level 3.2 g/dL (3.5-5.2); Alkaline Phosphatase 66 IU/L (40-130); Anion Gap 17.5 (5-19); Aspartate Amino Transferase 26 U/L (0-40); Blood Urea Nitrogen 30 mg/dL (8-23); Calcium 9.2 mg/dL (8.5-10.5); Carbon Dioxide 19 mmol/L (22-29); Chloride 91 mmol/L (98-107); Globulin 3.2 g/dL (1.3-4.6); Glomerular Filtration Rate 60.8 mL/min (90-130); Glucose 162 mg/dL (65-115); Osmolality Calculated 264 mOsm/kg (285-295); Potassium 5.5 mmol/L (3.5-5.1); Sodium 122 mmol/L (136-145); Total Bilirubin 1.5 mg/dL (0.15-1.2); Total Protein 6.4 g/dL (6.6-8.7)
[2021-06-04] MEDS: sodium polystyrene sulfonate 15 gm/60 mL Btl PO ×3 (08:24→20:01)
[2021-06-04] MEDS: insulin lispro 100 unit/1 mL 10 UNIT SUBCUT (08:24)
[2021-06-04] MEDS: levothyroxine 25 mcg Tablet PO (08:25)
[2021-06-04] MEDS: pantoprazole DR 40 mg Tablet PO ×2 (08:25→20:01)
--- NOTE | 2021-06-04 09:51 | PC.CHAP ---
Pastoral Care Encounter/Spiritual Assessment Type of Contact [] Declined central office operator visit [] Patient/Family/Request visit [] Outpatient visit [] Follow-up visit [] Physician referral [] Code/Alert [x] Routine visit [] Staff referral [] Actively dying [] Patient sleeping [] Family support [] [] Out of room [] Palliative care [] [] Receiving care in room [] Pre-surgical visit [] Trauma [] Long length of stay [] ICU visit [] Other: Relational/Emotional Strength [x] Patient feels connected with others/family/visitors/staff [] Distress [] Loneliness/isolation [] Abandonment Spirituality of Patient [x] Person of Moni [] Attends Orthodox of their Moni [x] Believes in Prayer [] Reads Bible or Zoroastrian materials [] There are Spiritual issues to be addressed Loading Unit Operator Seating Interventions [x] Prayer [x] Active listening [x] Non-anxious presence [x] Spiritual/emotional support [] Crisis/trauma care [] Spiritual counseling [] Bereavement support [] Provided bereavement packet [] Provided Bible/devotional materials [] Provided toy/stuffed animal, coloring book to patient or family member [] Provided Communion [] Anointing/[place] [] Salvation [x] Completed spiritual assessment [] Other: Impact on Illness or Injury [] Angry [] Fearful [] Anxious [] Often cries [] Exhaustion [] Unable to work [] Unable to attend sikhism [] Unable to walk/stand [] Unable to read [] Unable to drive [] Unable to eat/drink [] Unable to sleep [] Unable to be with family [] Patient intubated [] Other: Summary Loading Unit Operator Seating prayed with patient. Time spent with patient 7 minutes.
--- NOTE | 2021-06-04 10:41 | XRR_ITS ---
PROCEDURE INFORMATION: Exam: XR Abdomen Exam date and time: 06/04/2021 10:41 AM Age: 66 years old Clinical indication: Constipation; Additional info: No bm 3 days TECHNIQUE: Imaging protocol: XR of the abdomen. Views: Frontal supine view of the abdomen. 1 View. COMPARISON: CT abdomen pelvis w con* [id number] 04/17/2021 10:14 PM FINDINGS: Gastrointestinal tract: No bowel dilatation or obstruction. A large amount of fecal material is not identified. Bones/joints: Degenerative change in the lumbar spine. XR/XR KUB portable [id number] IMPRESSION: No acute findings. Radiation Dose CTDIVOL = (mGy): DLP = (mGy-cm)
[2021-06-04 14:18] LABS: Alanine Aminotransferase 33 U/L (0-41); Albumin Level 3.4 g/dL (3.5-5.2); Alkaline Phosphatase 80 IU/L (40-130); Aspartate Amino Transferase 30 U/L (0-40); Blood Urea Nitrogen 31 mg/dL (8-23); Calcium 9.4 mg/dL (8.5-10.5); Carbon Dioxide 21 mmol/L (22-29); Chloride 88 mmol/L (98-107); Globulin 3.4 g/dL (1.3-4.6); Glomerular Filtration Rate 55.4 mL/min (90-130); Glucose 227 mg/dL (65-115); Osmolality Calculated 266 mOsm/kg (285-295); Sodium 121 mmol/L (136-145); Total Bilirubin 1.4 mg/dL (0.15-1.2); Total Protein 6.8 g/dL (6.6-8.7)
--- NOTE | 2021-06-04 15:24 | P.PN_ITS ---
Subjective Subjective: Interval history: Patient was seen this morning, he is alert to person, to place, to time, denies any headaches, blurry vision, no nausea, no vomiting, he tells me he has not had a bowel movement in over 3 days, no abdominal pain, he is adamant that he has been taking his lactulose Vitals/I&O/Wt Last Vital Signs Temp 98.2 F 06/04/21 12:00 Pulse 87 06/04/21 12:00 Resp 18 06/04/21 12:00 BP 100/59 06/04/21 12:00 Pulse Ox 97 06/04/21 12:00 06/04/21 06/04/21 06/04/21 06:59 14:59 22:59 Intake Total 0.1 / 851.1 480 / 480 Balance 0.1 / 851.1 480 / 480 Weight last 48 hrs Weight 74.417 kg Weight 75.296 kg Physical Exam Const: COMMON NORMALS: no acute distress and patient oriented x3 Resp: COMMON NORMALS: normal respiratory effort, No retractions, No use of accessory muscles and clear to auscultation bilaterally AUSCULTATION: clear to auscultation bilaterally Cardio: COMMON NORMALS: regular rate, regular rhythm, S1 normal heart sound present and S2 normal heart sound present RATE: regular rate RHYTHM: regular rhythm HEART SOUNDS: S1 normal heart sound present and S2 normal heart sound present GI: COMMON NORMALS: Normal to inspection, nondistended, normoactive bowel sounds present, Soft to palpation, non-tender and No hepatosplenomegaly present PALPATION: Yes Soft to palpation and Yes No hepatosplenomegaly present Extremity: COMMON NORMALS: no pedal edema Neuro: COMMON NORMALS: patient oriented x3 Psych: COMMON NORMALS: mental status grossly normal Data : 06/04/21 04:29 06/04/21 13:32 A&P Assessment and plan (1) Altered mental status: Currently alert oriented x3 has some mild forgetfullness such as forgetting terms for hepatitis, lactulose etc however recalls with promting. No flapping tremors. Increase lactulose to 20mg q4h schedule, titrate to 5-6 BM per day Ammonia level 2 days ago at 80 continue rifaximin Suspect cause to be hepatic encephalopathy. Status: Acute Qualifiers: Altered mental status type: unspecified Qualified Code(s): R41.82 - Altered mental status, unspecified (2) Hyperkalemia: recently increased po K supplementation and spirinolcatone dosing due to increase in lasix dosing to minimize anasarca. Suspect excess po supplementation to be the cause Insulin 10U/Dextrose iv now , continue to follow serum potassium levels tele monitoring, no current EKG changes Status: Acute (3) Hyponatremia: Serum sodium 120s, likely secondary to chronic alcoholism, neurochecks, aspiration precautions, telemetry monitoring, will consider salt tablets Status: Acute (4) Anemia: Status: Acute Additional A&P Information Liver cirrhosis secondary to alcohol, with hepatic encephalopathy, splenomegaly, portal hypertension, GI bleed -Continue Lasix Attestations Medical Necessity Statement*: Patient requires hospitalization due to hyponatremia, altered mental status, hepatic encephalopathy, hyperkalemia Coding Level of Care Code Acute Community Placement Worker for g Fwd Diagnoses Altered mental status R41.82 Altered mental status type: unspecified Hyperkalemia E87.5 Hyponatremia E87.1 Anemia D64.9
[2021-06-04] MEDS: sodium chloride 1 gm Tablet PO (17:08)
[2021-06-04 18:47] LABS: Sodium 125 mmol/L (136-145)
[2021-06-04 23:11] LABS: Sodium 126 mmol/L (136-145)
[2021-06-05] MEDS: lactulose oral liq 20 gm/30 mL UDC PO ×4 (00:55→11:56)
[2021-06-05] MEDS: sodium polystyrene sulfonate 15 gm/60 mL Btl PO ×2 (02:19→08:09)
[2021-06-05 02:38] LABS: Basophils # 0.1 10^3/uL (0.0-0.1); Basophils % 1.1 %; Eosinophils # 0.1 10^3/uL (0.0-0.8); Eosinophils % 2.4 %; Hematocrit 29.4 % (42.0-52.0); Hemoglobin 9.8 g/dL (11.7-16.6); Lymphocytes # 0.7 10^3/uL (0.8-4.8); Lymphocytes % 12.9 %; Mean Corpuscular HGB Conc 33.3 g/dL (30.0-36.0); Mean Corpuscular Hemoglobin 28.6 pg (28.0-34.0); Mean Corpuscular Volume 85.7 fl (80-94); Mean Platelet Volume 9.6 fL (7.4-10.4); Monocytes % 18.8 %; Neutrophils # 3.53 10^3/uL (1.8-7.7); Neutrophils % 64.3 %; Nucleated Red Blood Cells % 0 %; Platelet Count 158 10^3/cmm (130-400); Red Blood Count 3.43 10^6/uL (4.1-5.3); Red Cell Distribution Width 13.9 % (12.1-15.1); White Blood Count 5.5 10^3/uL (4.0-10.0)
[2021-06-05 02:56] LABS: Ammonia 150 umol/L (16-60)
[2021-06-05 02:58] LABS: Alanine Aminotransferase 31 U/L (0-41); Albumin Level 3.2 g/dL (3.5-5.2); Alkaline Phosphatase 71 IU/L (40-130); Aspartate Amino Transferase 31 U/L (0-40); Blood Urea Nitrogen 27 mg/dL (8-23); Calcium 8.5 mg/dL (8.5-10.5); Carbon Dioxide 21 mmol/L (22-29); Chloride 93 mmol/L (98-107); Glomerular Filtration Rate 67.2 mL/min (90-130); Glucose 339 mg/dL (65-115); Magnesium 1.5 mg/dL (1.7-2.3); Osmolality Calculated 282 mOsm/kg (285-295); Phosphorus 2.4 mg/dL (2.5-4.5); Sodium 127 mmol/L (136-145); Total Bilirubin 0.9 mg/dL (0.15-1.2); Total Protein 6.2 g/dL (6.6-8.7)
[2021-06-05 03:53] VITALS: BP 102/66; PULSE 94; RESP 16; TEMP 36.9; O2SAT 96
[2021-06-05] MEDS: FUROsemide 40 mg Tablet 80 MG PO (06:14)
[2021-06-05] MEDS: sucralfate 1 gm Tablet PO ×3 (06:14→17:17)
[2021-06-05 08:00] VITALS: BP 100/63; PULSE 99; RESP 13; TEMP 36.3; O2SAT 99
[2021-06-05] MEDS: pantoprazole DR 40 mg Tablet PO ×2 (08:09→20:46)
[2021-06-05] MEDS: sodium chloride 1 gm Tablet PO ×2 (08:09→17:21)
[2021-06-05] MEDS: levothyroxine 25 mcg Tablet PO (08:09)
--- NOTE | 2021-06-05 09:46 | PC.CHAP ---
Pastoral Care Encounter/Spiritual Assessment Type of Contact [] Declined emergency medicine physician visit [] Patient/Family/Request visit [] Outpatient visit [] Follow-up visit [] Physician referral [] Code/Alert [x] Routine visit [] Staff referral [] Actively dying [] Patient sleeping [] Family support [] [] Out of room [] Palliative care [] [] Receiving care in room [] Pre-surgical visit [] Trauma [] Long length of stay [] ICU visit [] Other: Relational/Emotional Strength [x] Patient feels connected with others/family/visitors/staff [] Distress [] Loneliness/isolation [] Abandonment Spirituality of Patient [x] Person of Moni [x] Attends Zoroastrian of their Moni [x] Believes in Prayer [x] Reads Bible or Christianity materials [] There are Spiritual issues to be addressed Space Scheduler Interventions [x] Prayer [x] Active listening [x] Non-anxious presence [x] Spiritual/emotional support [] Crisis/trauma care [] Spiritual counseling [] Bereavement support [] Provided bereavement packet [] Provided Bible/devotional materials [] Provided toy/stuffed animal, coloring book to patient or family member [] Provided Communion [] Anointing/[place] [] Salvation [] Completed spiritual assessment [] Other: Impact on Illness or Injury [] Angry [] Fearful [] Anxious [] Often cries [] Exhaustion [] Unable to work [] Unable to attend [employer] [] Unable to walk/stand [] Unable to read [] Unable to drive [] Unable to eat/drink [] Unable to sleep [] Unable to be with family [] Patient intubated [] Other: Summary Time spent with patient 10 min
[2021-06-05 12:00] VITALS: BP 101/64; PULSE 100; RESP 14; TEMP 36.6; O2SAT 98
[2021-06-05 15:52] VITALS: BP 108/61; PULSE 95; RESP 12; TEMP 36.8; O2SAT 98
--- NOTE | 2021-06-05 16:54 | PM.PN ---
Subjective Subjective: Interval history: Patient was seen and examined this morning,currently AO*3, still has flapping tremors, No gross ascites on examination, denies any abdominal pain nausea vomiting, had 2 bowel movements, routinely at home targets around 4 bowel movements daily. Hyponatremia is slightly improved, serum creatinine is improved. Medications: Reviewed: Yes Vitals/I&O/Wt Last Vital Signs Temp 98.2 F 06/05/21 15:52 Pulse 95 06/05/21 15:52 Resp 12 06/05/21 15:52 BP 108/61 06/05/21 15:52 Pulse Ox 98 06/05/21 15:52 06/05/21 06/05/21 06/05/21 06:59 14:59 22:59 Intake Total 920 / 2240 600 / 600 Balance 920 / 2240 600 / 600 Weight last 48 hrs Weight 74.417 kg Weight 75.296 kg Physical Exam Const: COMMON NORMALS: patient oriented x3 HENMT: COMMON NORMALS: normocephalic and atraumatic HEAD & SCALP: normocephalic and atraumatic Resp: COMMON NORMALS: clear to auscultation bilaterally EFFORT & INSPECTION: Yes symmetric chest movement AUSCULTATION: clear to auscultation bilaterally Cardio: COMMON NORMALS: regular rate, regular rhythm, S1 normal heart sound present, S2 normal heart sound present, No gallops present (Cardio), No murmurs present (Cardio), No rub (Cardio) and Peripheral pulses 2+ throughout RATE: regular rate RHYTHM: regular rhythm HEART SOUNDS: S1 normal heart sound present and S2 normal heart sound present PERIPHERAL PULSES: Peripheral pulses 2+ throughout GI: COMMON NORMALS: Normal to inspection, nondistended, normoactive bowel sounds present, Soft to palpation, non-tender, No hepatosplenomegaly present and no masses AUSCULTATION: Yes normoactive bowel sounds PALPATION: Yes Soft to palpation and Yes No hepatosplenomegaly present RECTAL EXAM: Yes deferred Extremity: COMMON NORMALS: no clubbing, cyanosis or edema and no pedal edema Neuro: COMMON NORMALS: patient oriented x3 Data : 06/05/21 02:26 06/05/21 02:26 A&P Assessment and plan (1) Altered mental status: Currently alert oriented x3 Increase lactulose to 30mg q4h schedule, titrate to 5-6 BM per day Momitor Ammonia level continue rifaximin Suspect cause to be hepatic encephalopathy. Status: Acute Qualifiers: Altered mental status type: unspecified Qualified Code(s): R41.82 - Altered mental status, unspecified (2) Hyperkalemia: recently increased po K supplementation and spirinolcatone dosing due to increase in lasix dosing to minimize anasarca. Suspect excess po supplementation to be the cause Insulin 10U/Dextrose iv now , continue to follow serum potassium levels tele monitoring, no current EKG changes Status: Acute (3) Hyponatremia: Serum sodium 120s, likely secondary to chronic alcoholism, neurochecks, aspiration precautions, telemetry monitoring, will consider salt tablets Status: Acute (4) Anemia: Status: Acute Additional A&P Information Liver cirrhosis secondary to alcohol, with hepatic encephalopathy, splenomegaly, portal hypertension, GI bleed -Continue Lasix Attestations Medical Necessity Statement*: Patient needs to be in hospital for management of hepatic encephalopathy. Coding Level of Care Code Acute Advertising Representative for Chg Fwd Diagnoses Altered mental status R41.82 Altered mental status type: unspecified Hyperkalemia E87.5 Hyponatremia E87.1 Anemia D64.9
[2021-06-05] MEDS: lactulose oral liq 20 gm/30 mL UDC 30 GM PO ×2 (17:17→22:11)
[2021-06-05 20:00] VITALS: BP 106/55; PULSE 94; RESP 16; TEMP 36.9; O2SAT 97
[2021-06-06] VITALS: BP 102/53; PULSE 89; RESP 16; TEMP 36.8; O2SAT 95
[2021-06-06] MEDS: lactulose oral liq 20 gm/30 mL UDC 30 GM PO ×3 (02:44→10:40)
[2021-06-06 04:00] VITALS: BP 100/51; PULSE 87; RESP 16; TEMP 36.7; O2SAT 94
[2021-06-06 05:18] LABS: Basophils # 0.1 10^3/uL (0.0-0.1); Basophils % 1.1 %; Eosinophils # 0.1 10^3/uL (0.0-0.8); Eosinophils % 2.3 %; Hematocrit 29.7 % (42.0-52.0); Hemoglobin 10.1 g/dL (11.7-16.6); Lymphocytes # 1.1 10^3/uL (0.8-4.8); Lymphocytes % 17.4 %; Mean Corpuscular Hemoglobin 28.5 pg (28.0-34.0); Mean Corpuscular Volume 83.9 fl (80-94); Mean Platelet Volume 9.7 fL (7.4-10.4); Monocytes # 1.1 10^3/uL (0.2-0.9); Monocytes % 17.7 %; Neutrophils # 3.76 10^3/uL (1.8-7.7); Nucleated Red Blood Cells % 0 %; Platelet Count 194 10^3/cmm (130-400); Red Blood Count 3.54 10^6/uL (4.1-5.3); Red Cell Distribution Width 13.9 % (12.1-15.1); White Blood Count 6.2 10^3/uL (4.0-10.0)
[2021-06-06] MEDS: FUROsemide 40 mg Tablet 80 MG PO (05:53)
[2021-06-06 06:25] LABS: Alanine Aminotransferase 37 U/L (0-41); Albumin Level 3.1 g/dL (3.5-5.2); Alkaline Phosphatase 74 IU/L (40-130); Blood Urea Nitrogen 22 mg/dL (8-23); Calcium 8.6 mg/dL (8.5-10.5); Carbon Dioxide 22 mmol/L (22-29); Chloride 91 mmol/L (98-107); Glomerular Filtration Rate 84.7 mL/min (90-130); Glucose 233 mg/dL (65-115); Magnesium 1.5 mg/dL (1.7-2.3); Osmolality Calculated 275 mOsm/kg (285-295); Phosphorus 2.5 mg/dL (2.5-4.5); Sodium 127 mmol/L (136-145); Total Bilirubin 1.4 mg/dL (0.15-1.2); Total Protein 6.1 g/dL (6.6-8.7)
[2021-06-06 06:26] LABS: Ammonia 72 umol/L (16-60); Anion Gap 18.4 (5-19); Aspartate Amino Transferase 44 U/L (0-40); Potassium 4.4 mmol/L (3.5-5.1)
[2021-06-06 07:41] VITALS: BP 109/72; PULSE 96; RESP 16; TEMP 36.6; O2SAT 97
[2021-06-06] MEDS: pantoprazole DR 40 mg Tablet PO (09:02)
[2021-06-06] MEDS: sucralfate 1 gm Tablet PO ×2 (09:02→10:40)
[2021-06-06] MEDS: sodium chloride 1 gm Tablet PO (09:03)
[2021-06-06] MEDS: levothyroxine 25 mcg Tablet PO (09:03)
[2021-06-06 11:57] VITALS: BP 92/60; PULSE 97; RESP 16; TEMP 36.6; O2SAT 97
--- NOTE | 2021-06-06 12:04 | PM.DCS ---
Discharge Providers Date of Admission: 06/04/21 16:40 Date of Discharge: June 06, 2021 Attending Provider at Admission: Brandy Perry MD Attending Provider at Discharge: Efren Munoz MD Primary Care Provider: Floresita uBstillo DO Diagnoses at Discharge Discharge Diagnosis (1) Altered mental status: Status: Resolved Qualifiers: Altered mental status type: unspecified Qualified Code(s): R41.82 - Altered mental status, unspecified (2) Hyperkalemia: Status: Resolved (3) Hyponatremia: Status: Acute (4) Anemia: Status: Acute Reason for Visit Reason for Visit: Poss Pneumonia Hospital Course Hospital Course 66 year old male with PMH liver cirrhosis with anasarca s/p recent frequent paracentesis, hepatic encephalopathy p/w generalized weakness, on admission reported confusion per family described as word finding difficulty, increased forgetfullness. Patient is on daily lactulose and rifaximin combination for hepatic encephalopathy, states he has not had frequent BMs in the last 3-4 days. His usual frequency 3-4 per day, but curently having only one BM per day. No focal motor deficits otherwise. ROS negative for fever, chills, abdominal pain, nausea, vomiting. Was admitted for the management of altered mental status secondary to hepatic encephalopathy, hyperkalemia, Chronic hyponatremia, likely precipitant of hepatic encephalopathy was hyperkalemia. During the hospital stay He was kept on lactulose , rifaximin target was 4/5 bowel movements per day, hyperkalemia correction was done, therapeutic paracentesis was done with removal of 3.7 Ls ascitic fluid. Spironolactone was discontinued during the hospital, he was continued on Lasix 80 mg p.o. daily, chronic hyponatremia was stable serum sodium was at his baseline.Patient responded well to above medical management at the time of discharge he was alert awake and oriented x3, hemodynamically stable. Patient was continued on Lasix 80 mg p.o. daily, spironolactone was decreased 100 mg p.o. twice daily and he is to start spironolactone from coming Saturday, given the fact that his blood pressure is still on a softer side, and there is no gross ascites at present, bilaterally Lung lucero are clear, saturating on room air, no bilateral lower extremity edema. Patient is on transplant list, will continue to follow-up with his primary care physician as an outpatient. Patient responded well to above medical management and is being discharged in stable condition to home. Physical Exam Const: COMMON NORMALS: patient oriented x3 HENMT: COMMON NORMALS: normocephalic and atraumatic HEAD & SCALP: normocephalic and atraumatic Resp: COMMON NORMALS: clear to auscultation bilaterally EFFORT & INSPECTION: Yes symmetric chest movement AUSCULTATION: clear to auscultation bilaterally Cardio: COMMON NORMALS: regular rate, regular rhythm, S1 normal heart sound present, S2 normal heart sound present, No gallops present (Cardio), No murmurs present (Cardio), No rub (Cardio) and Peripheral pulses 2+ throughout RATE: regular rate RHYTHM: regular rhythm HEART SOUNDS: S1 normal heart sound present and S2 normal heart sound present PERIPHERAL PULSES: Peripheral pulses 2+ throughout GI: COMMON NORMALS: Normal to inspection, nondistended, normoactive bowel sounds present, Soft to palpation, non-tender, No hepatosplenomegaly present and no masses AUSCULTATION: Yes normoactive bowel sounds PALPATION: Yes Soft to palpation and Yes No hepatosplenomegaly present RECTAL EXAM: Yes deferred Extremity: COMMON NORMALS: no clubbing, cyanosis or edema and no pedal edema Neuro: COMMON NORMALS: patient oriented x3 Discharge Data Data Completed and Pending: Completed Studies During Hospitalization Category Date Time Status CT head wo con* 7 [id number] Urgent Cat Scan 06/03/21 18:21 Completed XR KUB portable 7 [id number] Routine Exams 06/04/21 10:41 Completed XR chest 1V cassie ble [id number] Urgent Exams 06/03/21 19:13 Completed Pending at discharge Category Date Time Status Ammonia AM LABS Lab 06/07/21 04:00 Ordered Complete Blood Co unt w/Auto AM LABS Lab 06/07/21 04:00 Ordered Comprehensive Met abolic Panel AM LA BS Lab 06/07/21 04:00 Ordered Magnesium AM LABS Lab 06/07/21 04:00 Ordered Phosphorus AM LAB S Lab 06/07/21 04:00 Ordered Labs from last 24 hours 06/06/21 06/06/21 06/06/21 04:45 04:45 04:45 WBC 6.2 RBC 3.54 L Hgb 10.1 L Hct 29.7 L MCV 83.9 MCH 28.5 MCHC 34.0 RDW 13.9 Plt Count 194 MPV 9.7 Neut % (Auto) 61.0 Lymph % (Auto) 17.4 Stephenson % (Auto) 17.7 Eos % (Auto) 2.3 Baso % (Auto) 1.1 Neut # (Auto) 3.76 Lymph # (Auto) 1.1 Stephenson # (Auto) 1.1 H Eos # (Auto) 0.1 Baso # (Auto) 0.1 Nucleated RBC % (a uto) 0 Nucleated RBCs # 0.0 Sodium 127 L Potassium 4.4 Chloride 91 L Carbon Dioxide 22 Anion Gap 18.4 BUN 22 Creatinine 0.9 GFR Calculation 84.7 L Glucose 233 H Calculated Osmolal ity 275 L Calcium 8.6 Phosphorus 2.5 Magnesium 1.5 L Total Bilirubin 1.4 H AST 44 H ALT 37 Alkaline Phosphata se 74 Ammonia 72 H Total Protein 6.1 L Albumin 3.1 L Globulin 3.0 Vitals: Last Vital Signs Temp 97.8 F 06/06/21 11:57 Pulse 97 06/06/21 11:57 Resp 16 06/06/21 11:57 BP 92/60 06/06/21 11:57 Pulse Ox 97 06/06/21 11:57 Discharge Plan Discharge Patient Disposition: Home Condition: Stable Prescriptions: New spironolactone 100 mg tablet 100 mg PO BID Qty: 60 RF: 3 Continued levothyroxine 25 mcg tablet 25 mcg PO DAILY@0800 RF: 0 Xifaxan 550 mg tablet 550 mg PO BID RF: 0 omeprazole 20 mg tablet,delayed release (DR/EC) 40 mg PO BID@0800,1999 RF: 0 lactulose 10 gram/15 mL solution 60 ml PO QID PRN (Reason: Constipation) RF: 0 multivitamin Tablet 1 tab PO DAILY RF: 0 sucralfate 1 gram tablet 1 g PO BID RF: 0 furosemide 80 mg tablet 80 mg PO QAM RF: 0 ondansetron 4 mg tablet,disintegrating 4 mg PO Q8H PRN (Reason: Nausea And Vomiting) RF: 0 fluticasone propionate [Flonase Allergy Relief] 50 mcg/actuation [place],Suspension 2 spray INTRANASAL DAILY PRN (Reason: Allergy Symptoms) RF: 0 hydrocodone-acetaminophen 7.5-325 mg tablet 1 tab PO Q6H PRN (Reason: pain) Qty: 20 RF: 0 potassium chloride 20 mEq tablet,ER particles/crystals 20 meq PO DAILY RF: 0 betamethasone dipropionate 0.05 % Ointment 1 applic TOPICAL BID PRN (Reason: Nausea And Vomiting) RF: 0 oxycodone 10 mg Tablet 10 mg PO Q6H PRN (Reason: Pain) RF: 0 promethazine 25 mg Tablet 25 mg PO Q6H PRN (Reason: Nausea And Vomiting) RF: 0 Discontinued spironolactone 100 mg Tablet 200 mg PO BID RF: 0 Discharge Orders: Discharge Order (Routine); Ordered 06/06/21 Ordered By: Efren Munoz Referrals: Floresita Bustillo DO [Primary Care Provider] - 06/22/21 1:00 pm Discharge Diet: Regular Discharge Activity: Increase activity as tolerated Patient Instructions: Spironolactone (By mouth), Hyponatremia (GEN), Hyperkalemia (GEN), Opioid Safety Discharge Attestations Time Spent in Discharge Care*: less than 30 min Specific Discharge Activities: educating patient, educating and/or supporting family/caregiver, discussing with pcp/other providers, discussing with major case detective/social workers/dc planners, documenting/other paperwork and evaluating patient/reviewing data Status at Discharge: Cognitive status at discharge: cognitively intact, Behavioral status at discharge: cooperative and independent in ADL's, Quality Metrics Clinical Quality Measures During this hospital stay, did patient experience: None Coding Level of Care Code Acute g FW DC note Exam Detailed Diagnoses Altered mental status R41.82 Altered mental status type: unspecified Hyperkalemia E87.5 Hyponatremia E87.1 Anemia D64.9
== END 2021-06-06 12:57 | disposition home or self-care (01) | DRG 433 ==
LOC: ER 17:45 → MEDSURG 20:48
PROVIDERS: Family Medicine; Admitting Provider Student in an Organized Health Care Education/Training Program; Emergency Provider Emergency Medicine; PCP Family Medicine; Visit Provider Internal Medicine
DX: K70.40 Alcoholic hepatic failure without coma (principal); K76.6 Portal hypertension; E87.1 Hypo-osmolality and hyponatremia; E87.5 Hyperkalemia; K70.30 Alcoholic cirrhosis of liver without ascites; F10.21 Alcohol dependence, in remission; Z76.82 Awaiting organ transplant status; E11.22 Type 2 diabetes mellitus with diabetic chronic kidney disease; I12.9 Hypertensive chronic kidney disease with stage 1 through stage 4 chronic kidney disease, or unspecified chronic kidney disease; N18.2 Chronic kidney disease, stage 2 (mild); K21.9 Gastro-esophageal reflux disease without esophagitis; E03.9 Hypothyroidism, unspecified; G47.33 Obstructive sleep apnea (adult) (pediatric); Z87.891 Personal history of nicotine dependence; D64.9 Anemia, unspecified; K59.00 Constipation, unspecified; Z79.891 Long term (current) use of opiate analgesic
CPT/HCPCS: 36415; 70450; 71045; 74018; 80053; 81003; 82140; 82533; 83605; 83690; 83735; 84100; 84295; 84443; 84484; 85025; 85610; 93005; 96365; 96372; 96375; 99285; G0378; J1815; J1940; J7040

== ENCOUNTER 2021-06-11 13:47 | Emergency (ER) | payer MEDICARE, OTHER, SELFPAY ==
[2021-06-11 14:48] VITALS: BP 101/60; PULSE 98; RESP 20; TEMP 36.8; O2SAT 98; BMI 22.8
--- NOTE | 2021-06-11 15:20 | W.ED.FALL ---
HPI - Fall General: Chief Complaint: Fall Stated Complaint: HEAD LAC/FALL Time Seen by Provider: 06/11/21 15:15 Source: patient Mode of arrival: wheelchair Limitations: no limitations History of Present Illness: HPI Narrative: 66-year-old male with a history of end-stage liver disease presents to the ER after falling this afternoon. Patient reports he was using his walker and tripped over blankets that were around him. He denies any dizziness but reports he did hit his head and has a laceration to the back of his head in addition to right-sided neck pain. Patient denies loss of consciousness. Patient reports he has very thin skin due to liver disease and gets frequent skin tears and bruising. Patient denies headache, chest pain, shortness of breath, nausea, vomiting, diarrhea, constipation. MD complaint: fall Onset (ago): hour(s) Fall from: standing Fall witnessed: no Place fall occurred: home Loss of consciousness: None Prolonged down time: no Symptoms prior to fall: none Context: tripped/slipped Location of injury: head and neck Quality: burning Associated symptoms-after fall: Reports neck pain (right side of neck); Denies chest pain or headache(s) Review of Systems General: Reports: 10 or more systems reviewed and unremarkable except in HPI and below Const: Denies: fever(s), chills or body aches Eyes: Denies: change in vision or blurry vision ENMT: Denies: throat pain, nasal discharge or nasal congestion Card: Denies: chest pain or palpitations Resp: Denies: dyspnea, productive cough or wheezing GI: Denies: nausea, vomiting, diarrhea or constipation Musc: Reports: neck pain (right side of neck); Denies: back pain, extremity pain or joint pain Skin/Breast: Reports: other (laceration to scalp/ skin tear) Neuro: Denies: headache(s) or dizziness PFS ED PFSH: Medical History Acute hyponatremia -improved with hydration, on salt tablets -suspect some degree of this will persist chronically CKD (chronic kidney disease) stage 2, GFR 60-89 ml/min -baseline Cr wnl -current renal function at baseline GERD (gastroesophageal reflux disease) Hepatic encephalopathy -noted ammonia-69; mentation at baseline -on lactulose History of cirrhosis of liver -has been following up at [facility] in [place], less frequently lately due to coronavirus pandemic -normal LFTs History of diabetes mellitus -resume oral meds Hypertension -VSS -discontinue ARB, continue Aldactone; due to low normal BP and risk of hypotension Hypothyroidism -TSH wnl -continue levothyroxine Obstructive sleep apnea -CPAP qhs Surgical History H/O esophagogastroduodenoscopy (03/08/20) History of appendectomy History of arthroscopic knee surgery History of surgery on upper extremity History of umbilical hernia repair (04/18/21) History of vasectomy Family History Other Diabetes Social History Smoking and tobacco status: never smoked Quit status (tobacco): has quit using tobacco Alcohol intake: former Physical Exam Const: COMMON NORMALS: no acute distress GENERAL APPEARANCE: cooperative, comfortable and frail appearing HENMT: COMMON NORMALS: external ears normal and Normal external nose present HEAD & SCALP: laceration (crown/posterior scalp, no active bleeding, burning reported 4 cm x 4 cm) NOSE: Normal external nose present EXTERNAL EAR: Yes external ears normal Eye: COMMON NORMALS: conjunctivae normal CONJUNCTIVA: Yes conjunctivae normal Neck/C-Spine: CERVICAL SPINE: Yes cervical ROM normal, Yes Cervical spine tenderness and Yes Paracervical muscle tenderness right Resp: COMMON NORMALS: normal respiratory effort EFFORT & INSPECTION: Yes able to speak in complete sentences Cardio: COMMON NORMALS: regular rate and regular rhythm RATE: regular rate RHYTHM: regular rhythm Neuro: COMMON NORMALS: moves all extremities OTHER: pt at baseline Psych: COMMON NORMALS: Normal thought process present and cooperative ATTITUDE: Yes calm THOUGHT PROCESS: Normal thought process present Skin: TRAUMA: abrasion OTHER: skin tear, see head exam Course ED course: Patient presents after a fall at home just prior to arrival. He does have a head laceration and did hit his head so we will go ahead with a head CT also given neck pain we will rule out acute fracture. Likely this is a cervical strain injury based on physical exam. Vital Signs: Vital signs: Vital Signs Temperature 98.2 F 06/11/21 14:48 Pulse Rate 98 06/11/21 14:48 Respiratory Rate 20 H 06/11/21 14:48 Blood Pressure 101/60 06/11/21 14:48 Pulse Oximetry 98 06/11/21 14:48 MDM - Fall MDM Narrative: Medical decision making narrative: 66-year-old male presents to the ER today after falling because he tripped on some blankets under his feet. Patient has end-stage liver disease and thinning skin. He has a skin tear to the scalp, with no active bleeding. He has some right-sided neck pain. CT of the head was normal. Patient likely has a cervical strain. Recommended conservative treatment at this time. Warm moist heat recommended alternated with ice. Okay to try topical muscle rub but do not use with heat or ice. Wound was dressed with triple antibiotic ointment and a nonstick dressing. Wound care discussed with patient. Follow-up with PCP in 3 to 5 days for wound check. Return to the ER with any new or worsening symptoms. Patient verbalized understanding and is in agreement with this treatment plan. Imaging Data^: CT Head: Radiologist's impression: [address] [address] [address] Scan Report Signed Patient: Luis Muñoz Unit #: [id number] : 1955 Age/Sex: 66 / M ADM Date: 06/11/21 Loc: ER Room/Bed: Attending Dr: Ordering Provider/Ordering MD: Petty Cano Date of Service: 06/11/21 Procedure(s): CT head wo con* [id number] Accession Number(s): [id number] Report Number: [id number] PROCEDURE INFORMATION: Exam: CT Head Without Contrast Exam date and time: 06/11/2021 3:29 PM Age: 66 years old Clinical indication: Injury or trauma; Fall; Blunt trauma (contusions or hematomas); Additional info: Fall with head laceration and R sided neck pain TECHNIQUE: Imaging protocol: Computed tomography of the head without contrast. Radiation optimization: All CT scans at this facility use at least one of these dose optimization techniques: automated exposure control; mA and/or kV adjustment per patient size (includes targeted exams where dose is matched to clinical indication); or iterative reconstruction. COMPARISON: CT head wo con* [id number] 06/03/2021 7:13 PM RADIATION DOSE METRICS: Total DLP (mGy-cm): 930.09 FINDINGS: Brain: No hemorrhage. Mild diffuse cerebral atrophy. Unremarkable white matter. No mass effect. Cerebral ventricles: No ventriculomegaly. Paranasal sinuses: Partially opacified left sphenoid sinus. The rest of the paranasal sinuses are well pneumatized. Mastoid air cells: Visualized mastoid air cells are well aerated. Bones/joints: Unremarkable. No acute fracture. Soft tissues: Unremarkable. CT/CT head wo con* [id number] IMPRESSION: No acute intracranial abnormality. Radiation Dose CTDIVOL = (mGy): DLP = 930.09 (mGy-cm) Dictated By: Colin Gamez DO Signed By: Colin Gamez DO Signed Date/Time: 06/11/21 162 DD/ 1529 Critical Care Time Critical Care Time: Critical Care Time: No Discharge Plan Discharge Patient Disposition: Home Clinical Impression: Laceration of scalp Qualifiers: Encounter type: initial encounter Qualified Code(s): S01.01XA - Laceration without foreign body of scalp, initial encounter Fall Qualifiers: Encounter type: initial encounter Qualified Code(s): W19.XXXA - Unspecified fall, initial encounter Cervical strain, acute Qualifiers: Encounter type: initial encounter Qualified Code(s): S16.1XXA - Strain of muscle, fascia and tendon at neck level, initial encounter Condition: Stable Prescriptions: No Action levothyroxine 25 mcg tablet 25 mcg PO DAILY@0800 RF: 0 Xifaxan 550 mg tablet 550 mg PO BID RF: 0 omeprazole 20 mg tablet,delayed release (DR/EC) 40 mg PO BID@0800,2000 RF: 0 lactulose 10 gram/15 mL solution 60 ml PO QID PRN (Reason: Constipation) RF: 0 multivitamin Tablet 1 tab PO DAILY RF: 0 sucralfate 1 gram tablet 1 g PO BID RF: 0 furosemide 80 mg tablet 80 mg PO QAM RF: 0 ondansetron 4 mg tablet,disintegrating 4 mg PO Q8H PRN (Reason: Nausea And Vomiting) RF: 0 fluticasone propionate [Flonase Allergy Relief] 50 mcg/actuation [place],Suspension 2 spray INTRANASAL DAILY PRN (Reason: Allergy Symptoms) RF: 0 hydrocodone-acetaminophen 7.5-325 mg tablet 1 tab PO Q6H PRN (Reason: pain) Qty: 20 RF: 0 potassium chloride 20 mEq tablet,ER particles/crystals 20 meq PO DAILY RF: 0 betamethasone dipropionate 0.05 % Ointment 1 applic TOPICAL BID PRN (Reason: Nausea And Vomiting) RF: 0 oxycodone 10 mg Tablet 10 mg PO Q6H PRN (Reason: Pain) RF: 0 promethazine 25 mg Tablet 25 mg PO Q6H PRN (Reason: Nausea And Vomiting) RF: 0 spironolactone 100 mg tablet 100 mg PO BID Qty: 60 RF: 3 Discharge Orders: Discharge ED (Routine); Ordered 06/11/21 Ordered By: Petty Cano Referrals: Floresita Bustillo DO [Primary Care Provider] - Discharge Diet: Usual diet Discharge Activity: Resume usual activity Patient Instructions: Skin Tear (ED), Cervical Strain, Opioid Safety Activity Restrictions/Additional Instructions: Wound care as discussed. Apply Neosporin and dressing if able to. Warm moist heat recommended for neck pain. Topical muscle rub okay to use but do not use with heat or ice. Follow-up with PCP in 3 to 5 days for wound check. Return to the ER with any new or worsening symptoms. Coding Level of Care Code ED Motors Assembler for Jazmineg Fwd Exam Comprehensive
--- NOTE | 2021-06-11 15:29 | CTR_ITS ---
PROCEDURE INFORMATION: Exam: CT Head Without Contrast Exam date and time: 06/11/2021 3:29 PM Age: 66 years old Clinical indication: Injury or trauma; Fall; Blunt trauma (contusions or hematomas); Additional info: Fall with head laceration and R sided neck pain TECHNIQUE: Imaging protocol: Computed tomography of the head without contrast. Radiation optimization: All CT scans at this facility use at least one of these dose optimization techniques: automated exposure control; mA and/or kV adjustment per patient size (includes targeted exams where dose is matched to clinical indication); or iterative reconstruction. COMPARISON: CT head wo con* [id number] 06/03/2021 7:13 PM RADIATION DOSE METRICS: Total DLP (mGy-cm): 930.09 FINDINGS: Brain: No hemorrhage. Mild diffuse cerebral atrophy. Unremarkable white matter. No mass effect. Cerebral ventricles: No ventriculomegaly. Paranasal sinuses: Partially opacified left sphenoid sinus. The rest of the paranasal sinuses are well pneumatized. Mastoid air cells: Visualized mastoid air cells are well aerated. Bones/joints: Unremarkable. No acute fracture. Soft tissues: Unremarkable. CT/CT head wo con* [id number] IMPRESSION: No acute intracranial abnormality. Radiation Dose CTDIVOL = (mGy): DLP = 930.09 (mGy-cm)
[2021-06-11 16:56] VITALS: PULSE 87; RESP 16; O2SAT 97
--- NOTE | 2021-06-11 16:56 | PC.NURSE ---
UPON ASSESSMENT PT IS IN NAD. PT IS CALM, AWAKE ,ALERT, AND ANSWERING QUESTIONS APPROPRIATELY. PT BREATHING IS NONLABORED. RATE AND RHYTHM ARE WNL. PT SKIN IS WARM DRY AND PINK.
== END 2021-06-11 16:57 | disposition home or self-care (01) ==
PROVIDERS: Emergency Provider Physician Assistant; PCP Family Medicine
DX: S01.01XA Laceration without foreign body of scalp, initial encounter (principal); S16.1XXA Strain of muscle, fascia and tendon at neck level, initial encounter; I12.9 Hypertensive chronic kidney disease with stage 1 through stage 4 chronic kidney disease, or unspecified chronic kidney disease; E11.22 Type 2 diabetes mellitus with diabetic chronic kidney disease; N18.2 Chronic kidney disease, stage 2 (mild); Z87.891 Personal history of nicotine dependence; W18.09XA Striking against other object with subsequent fall, initial encounter
CPT/HCPCS: 70450; 99282

== ENCOUNTER 2021-06-12 11:33 | Outpatient (CLI) | payer MEDICARE, OTHER, SELFPAY ==
[2021-06-12 11:40] VITALS: BP 106/66; PULSE 88; RESP 16; TEMP 36.3; O2SAT 98
--- NOTE | 2021-06-12 12:03 | US_ITS ---
WS: [id number] INDICATION: Preprocedure paracentesis. Ascites. TECHNIQUE: Ultrasound abdomen for paracentesis FINDINGS: Mild abdominal ascites. Insufficient volume for paracentesis at this time. US/US abdomen lmt fluid [id number] IMPRESSION: Mild abdominal ascites.
[2021-06-12 12:09] VITALS: BMI 22.3
--- NOTE | 2021-06-12 12:20 | PC.NURSE ---
Per Dr. Nicolas not enough fluid to perform procedure today. Will check fluid amount next week.
== END 2021-06-12 11:34 | disposition home or self-care (01) ==
PROVIDERS: PCP Family Medicine; Visit Provider Internal Medicine Gastroenterology
DX: K74.60 Unspecified cirrhosis of liver (principal); R18.8 Other ascites; Z53.8 Procedure and treatment not carried out for other reasons
CPT/HCPCS: 76705

== ENCOUNTER 2021-06-14 10:57 | Inpatient (IN) | payer MEDICARE, OTHER, SELFPAY ==
[2021-06-14 10:59] VITALS: BP 116/74; PULSE 81; RESP 18; TEMP 37; O2SAT 98; BMI 23.1
--- NOTE | 2021-06-14 11:01 | W.ED.AMS ---
HPI - Altered Mental Status General: Chief Complaint: Altered Mental Status Stated Complaint: AMS Time Seen by Provider: 06/14/21 11:01 Source: EMS Limitations: altered mental status History of Present Illness: HPI narrative: Mr. Muñoz is a 66-year-old gentleman with known end-stage liver disease secondary to SORENSEN and chronic hyponatremia presents to the emergency department due to altered mental status. Per EMS report patient's reports last normal 8 hours ago. Upon evaluation patient is the only person in the room and does not follow commands or answer questions. Supplemental information provided by family upon their arrival as patient was doing well and ambulating around the yard yesterday. Around 2:30 AM he woke up and was not confused however he was slightly more unsteady on his feet. This degree of altered mental status has not been seen previously by the patient's family. No new reported falls or other specific changes in health. He has not had his medication this morning secondary to mental status. Review of Systems General: Reports: ROS unobtainable due to mental status PFSH ED PFSH: Medical History Acute hyponatremia -improved with hydration, on salt tablets -suspect some degree of this will persist chronically CKD (chronic kidney disease) stage 2, GFR 60-89 ml/min -baseline Cr wnl -current renal function at baseline GERD (gastroesophageal reflux disease) Hepatic encephalopathy -noted ammonia-69; mentation at baseline -on lactulose History of cirrhosis of liver -has been following up at [facility] in [place], less frequently lately due to coronavirus pandemic -normal LFTs History of diabetes mellitus -resume oral meds Hypertension -VSS -discontinue ARB, continue Aldactone; due to low normal BP and risk of hypotension Hypothyroidism -TSH wnl -continue levothyroxine Obstructive sleep apnea -CPAP qhs Surgical History H/O esophagogastroduodenoscopy (03/08/20) History of appendectomy History of arthroscopic knee surgery History of surgery on upper extremity History of umbilical hernia repair (04/18/21) History of vasectomy Family History Other Diabetes Social History Smoking and tobacco status: never smoked Quit status (tobacco): has quit using tobacco Alcohol intake: former Physical Exam Narrative: EXAM NARRATIVE: GENERAL/CONSTITUTIONAL -somewhat ill appearing. No acute distress. Eyes - PERRL, no conjunctival injection ENMT - Atraumatic external nose and ears. NECK - supple. trachea midline CARDIOVASCULAR - regular rate and rhythm. RESPIRATORY -clear to auscultation bilaterally. ABDOMEN/GI - Nontender, Nondistended. MSK - Extremities without obvious deformity or tenderness to palpation SKIN - Warm, Dry NEURO - alert and responds to painful stimuli. Does not answer questions. Patient does have asterixis and mild nonfocal tremulous-like movements including twitching of bilateral corners of mouth Course ED course: - Patient was seen and evaluated by me at bedside - Patient placed on cardiac monitors, IV access obtained - Initial evaluation notable for no acute distress, nontoxic appearance. Encephalopathic without focality. No evidence of seizure-like activity. - Labs notable for no leukocytosis. Near baseline normocytic anemia. INR mildly elevated. Metabolic panel with mild hyponatremia at 125 decreased bicarb. No urinary tract infection. Ammonia is elevated. No other obvious cause for patient's encephalopathy - Imaging notable for no infiltrate on chest x-ray. No evidence of acute LVO or intracranial hemorrhage or mass to explain patient's symptoms. - Upon serial reexamination after treatment the patient was similar to mildly improved - Based on patient history, evaluation, labs, and imaging as interpreted the most likely cause of the patient's condition is acute metabolic/hepatic encephalopathy with altered mental status - The results of ED evaluation were discussed with the patient's family member including plan for admission due to requirement for level of care not available if discharged to prevent significant worsening/deterioration. - Hospitalist service consulted and agreed to admit the patient. - Patient was admitted without further deterioration or significant events. Vital Signs: Vital signs: Vital Signs Temperature 98.3 F 06/16/21 08:00 Pulse Rate 90 06/16/21 08:00 Respiratory Rate 18 06/16/21 08:00 Blood Pressure 116/75 06/16/21 08:00 Pulse Oximetry 98 06/16/21 08:00 MDM - Altered Mental Status Medical Records: Attestation: I reviewed the patient's medical records. Lab Data: Attestation: I reviewed the patient's lab results. Labs: Lab Results 06/14/21 06/14/21 06/14/21 11:09 12:00 12:15 WBC 6.1 10^3/uL 10^3/ uL (4.0-10.0) RBC 3.48 10^6/uL L 10 ^6/uL (4.1-5.3) Hgb 9.6 g/dL L g/dL (11.7-16.6) Hct 30.5 % L % (42.0-52.0) MCV 87.6 fl fl (80-94) MCH 27.6 pg L pg (28.0-34.0) MCHC 31.5 g/dL g/dL (30.0-36.0) RDW 14.3 % % (12.1-15.1) Plt Count 159 10^3/cmm 10^3 /cmm (130-400) MPV 9.9 fL fL (7.4-10.4) Neut % (Auto) 70.0 % % Lymph % (Auto) 11.2 % % [place] % (Auto) 15.7 % % Eos % (Auto) 1.8 % % Baso % (Auto) 1.0 % % Neut # (Auto) 4.23 10^3/uL 10^3 /uL (1.8-7.7) Lymph # (Auto) 0.7 10^3/uL L 10^ 3/uL (0.8-4.8) [place] # (Auto) 1.0 10^3/uL H 10^ 3/uL (0.2-0.9) Eos # (Auto) 0.1 10^3/uL 10^3/ uL (0.0-0.8) Baso # (Auto) 0.1 10^3/uL 10^3/ uL (0.0-0.1) Nucleated RBC % (a uto) 0 % % Nucleated RBCs # 0.0 /100WBC /100W BC PT INR Sodium Potassium Chloride Carbon Dioxide Anion Gap BUN Creatinine GFR Calculation Glucose POC Glucose 188 mg/dL H mg/dL (70-110) Calculated Osmolal ity Calcium Phosphorus Magnesium Total Bilirubin AST ALT Alkaline Phosphata se Ammonia NT-Pro-B Natriuret Pep Total Protein Albumin Globulin Triglycerides Cholesterol LDL Cholesterol, C alc HDL Cholesterol LDL/HDL Ratio Cholesterol/HDL Ra светлана TSH Urine Color Yellow (Yellow) Urine Appearance Clear (CLEAR) Urine pH 9 H (5-7) Ur Specific Gravit y 1.010 (1.005-1.030) Urine Protein Neg (Negative) Urine Glucose (UA) Norm (Normal) Urine Ketones Negative (Negative) Urine Blood Neg (Negative) Urine Nitrate Negative (Negative) Urine Bilirubin Neg (Negative) Prot Sulfosalicyli c Acd Negative (Negative) Urine Urobilinogen Norm mg/dL mg/dL (Negative) Ur Leukocyte Denia ase Negative (Negative) Salicylates Acetaminophen Ethyl Alcohol 06/14/21 06/14/21 06/14/21 12:15 12:15 12:15 WBC RBC Hgb Hct MCV MCH MCHC RDW Plt Count MPV Neut % (Auto) Lymph % (Auto) [place] % (Auto) Eos % (Auto) Baso % (Auto) Neut # (Auto) Lymph # (Auto) [place] # (Auto) Eos # (Auto) Baso # (Auto) Nucleated RBC % (a uto) Nucleated RBCs # PT 17.20 SECONDS H S ECONDS (12.1-14.9) INR 1.36 H (0.8-1.2) Sodium 125 mmol/L L mmol /L (136-145) Potassium 4.9 mmol/L mmol/L (3.5-5.1) Chloride 93 mmol/L L mmol/ L (98-107) Carbon Dioxide 19 mmol/L L mmol/ L (22-29) Anion Gap 17.9 (5-19) BUN 21 mg/dL mg/dL (8-23) Creatinine 1.0 mg/dL mg/dL (0.7-1.2) GFR Calculation 75.0 mL/min L mL/ min (90-130) Glucose 166 mg/dL H mg/dL (65-115) POC Glucose Calculated Osmolal ity 267 mOsm/kg L mOs m/kg (285-295) Calcium 8.6 mg/dL mg/dL (8.5-10.5) Phosphorus 2.6 mg/dL mg/dL (2.5-4.5) Magnesium 1.6 mg/dL L mg/dL (1.7-2.3) Total Bilirubin 1.3 mg/dL H mg/dL (0.15-1.2) AST 27 U/L U/L (0-40) ALT 29 U/L U/L (0-41) Alkaline Phosphata se 79 IU/L IU/L (40-130) Ammonia 98 umol/L H umol/ L (16-60) NT-Pro-B Natriuret Pep Total Protein 5.7 g/dL L g/dL (6.6-8.7) Albumin 3.1 g/dL L g/dL (3.5-5.2) Globulin 2.6 g/dL g/dL (1.3-4.6) Triglycerides Cholesterol LDL Cholesterol, C alc HDL Cholesterol LDL/HDL Ratio Cholesterol/HDL Ra светлана TSH 2.36 uIU/mL uIU/m L (0.27-4.20) Urine Color Urine Appearance Urine pH Ur Specific Gravit y Urine Protein Urine Glucose (UA) Urine Ketones Urine Blood Urine Nitrate Urine Bilirubin Prot Sulfosalicyli c Acd Urine Urobilinogen Ur Leukocyte Denia ase Salicylates < 0.3 mg/dL L mg/ dL (3-10) Acetaminophen < 5.0 ug/mL L ug/ mL (10-30) Ethyl Alcohol < 10 mg/dL mg/dL (0-10) 06/15/21 06/15/21 06/15/21 02:40 02:40 02:40 WBC 5.5 10^3/uL 10^3/ uL (4.0-10.0) RBC 3.36 10^6/uL L 10 ^6/uL (4.1-5.3) Hgb 9.6 g/dL L g/dL (11.7-16.6) Hct 28.7 % L % (42.0-52.0) MCV 85.4 fl fl (80-94) MCH 28.6 pg pg (28.0-34.0) MCHC 33.4 g/dL D g/dL (30.0-36.0) RDW 14.4 % % (12.1-15.1) Plt Count 150 10^3/cmm 10^3 /cmm (130-400) MPV 9.8 fL fL (7.4-10.4) Neut % (Auto) 60.7 % % Lymph % (Auto) 15.1 % % [place] % (Auto) 19.5 % % Eos % (Auto) 2.7 % % Baso % (Auto) 1.6 % % Neut # (Auto) 3.32 10^3/uL 10^3 /uL (1.8-7.7) Lymph # (Auto) 0.8 10^3/uL 10^3/ uL (0.8-4.8) [place] # (Auto) 1.1 10^3/uL H 10^ 3/uL (0.2-0.9) Eos # (Auto) 0.2 10^3/uL 10^3/ uL (0.0-0.8) Baso # (Auto) 0.1 10^3/uL 10^3/ uL (0.0-0.1) Nucleated RBC % (a uto) 0 % % Nucleated RBCs # 0.0 /100WBC /100W BC PT INR Sodium 131 mmol/L L mmol /L (136-145) Potassium 4.3 mmol/L mmol/L (3.5-5.1) Chloride 99 mmol/L mmol/L (98-107) Carbon Dioxide 21 mmol/L L mmol/ L (22-29) Anion Gap 15.3 (5-19) BUN 19 mg/dL mg/dL (8-23) Creatinine 1.0 mg/dL mg/dL (0.7-1.2) GFR Calculation 75.0 mL/min L mL/ min (90-130) Glucose 157 mg/dL H mg/dL (65-115) POC Glucose Calculated Osmolal ity 278 mOsm/kg L mOs m/kg (285-295) Calcium 8.4 mg/dL L mg/dL (8.5-10.5) Phosphorus 3.5 mg/dL mg/dL (2.5-4.5) Magnesium 1.6 mg/dL L mg/dL (1.7-2.3) Total Bilirubin 1.8 mg/dL H mg/dL (0.15-1.2) AST 27 U/L U/L (0-40) ALT 27 U/L U/L (0-41) Alkaline Phosphata se 77 IU/L IU/L (40-130) Ammonia NT-Pro-B Natriuret Pep 191 pg/mL H pg/mL (0-125) Total Protein 5.7 g/dL L g/dL (6.6-8.7) Albumin 2.8 g/dL L g/dL (3.5-5.2) Globulin 2.9 g/dL g/dL (1.3-4.6) Triglycerides 48 mg/dL mg/dL (0-150) Cholesterol 168 mg/dL mg/dL (0-200) LDL Cholesterol, C alc 98 mg/dL mg/dL (50-129) HDL Cholesterol 60 mg/dL mg/dL (60-100) LDL/HDL Ratio 1.63 RATIO RATIO (0.00-3.22) Cholesterol/HDL Ra светлана 2.80 mg/dL mg/dL (1.0-5.00) TSH 2.60 uIU/mL uIU/m L (0.27-4.20) Urine Color Urine Appearance Urine pH Ur Specific Gravit y Urine Protein Urine Glucose (UA) Urine Ketones Urine Blood Urine Nitrate Urine Bilirubin Prot Sulfosalicyli c Acd Urine Urobilinogen Ur Leukocyte Denia ase Salicylates Acetaminophen Ethyl Alcohol EKG Data^: EKG 1: Attestation: I personally reviewed and interpreted this EKG as follows: EKG interpretation date: 06/14/21 EKG interpretation time: 11:33 Interpretation: Twelve-lead EKG shows a regular rhythm at a rate of 80. UT interval 119, QRS duration 84, QTc 441. Normal axis. Interpretation: Sinus rhythm. Borderline UT interval. Discharge Plan Discharge Patient Disposition: Admitted As Inpatient Admit Provider: Per Will Clinical Impression: Acute hepatic encephalopathy, Chronic hyponatremia, Altered mental status Condition: Stable Discharge Diet: Advance as tolerated Discharge Activity: Resume usual activity Coding Level of Care Code ED Food Service Aide for Jazmineg Anabel
--- NOTE | 2021-06-14 11:08 | XR_ITS ---
WS: [id number] Portable AP semiupright chest, 06/14/2021 Clinical Data: AMS Comparison: None. Findings: No nodules, masses or effusions are seen. The heart is normal. The pulmonary vascularity is not increased. No pneumonia or pneumothorax is seen. The aortic arch is minimally tortuous. There ar e monitor leads on the chest wall. XR/XR chest 1V portable [id number] Impression: Atherosclerosis.
--- NOTE | 2021-06-14 11:08 | ECG_ITS ---
[facility] Test Date: 2021-06-14 Pat Name: Luis Muñoz Department: Room: Gender: Male Commissary Helper: : 1955 Requested By: Lewis Britton Order Number: [id number] Jae MD: Skyler Navarrete M.D. Measurements Intervals [place] Rate: 80 P: 43 NE: 119 QRS: 36 QRSD: 84 T: 58 QT: 381 QTc: 441 Interpretive Statements SINUS RHYTHM WITH SHORT NE INTERVAL Compared to ECG 06/03/2021 19:25:45 Short NE interval now present Electronically Signed On 06-14-2021 23:54:18 MANPOWER DEVELOPMENT MANAGER by Skyler Navarrete M.D. [id number]
--- NOTE | 2021-06-14 11:08 | CT_ITS ---
WS: [id number] CT HEAD TECHNIQUE: Noncontrast CT of the head obtained from the skullbase to the vertex. CLINICAL INFORMATION: AMS COMPARISON: June 11, 2021. DLP: 1921.[address] scans at [facility] use at least one of these dose optimization techniques: automated e xposure control; mA and/or kV adjustment per patient size (includes targeted exams where dose is matc hed to clinical indication); or iterative reconstruction. FINDINGS: No evidence of intracranial hemorrhage or mass effect. Ventricular system and basal cisterns are crockett nt. Mild small vessel changes with moderate facet parenchymal volume loss. No extra-axial fluid colle ctions. No evidence of mass or mass effect. Normal newby-white differentiation. Left sphenoid sinusitis. Mastoid air cells well aerated. CT/CT head wo con* [id number] IMPRESSION: 1. No evidence of intracranial hemorrhage or mass effect. 2. Left sphenoid sinusitis with air-fluid level 3. Mild small vessel changes with mild parenchymal volume loss. 4. No acute intracranial findings.
[2021-06-14 11:12] LABS: Glucose Point of Care 188 mg/dL (70-110)
--- NOTE | 2021-06-14 11:20 | PC.NURSE ---
PATIENT NOW PRESENT AT BEDSIDE. PATIENT STATES PATIENT HAS END STAGE LIVER DISEASE AND IS ON THE TRANSPLANT LIST. STATES PATIENT WAS FINE YESTERDAY. PATIENT UP AND OUT OF BED, VOIDED BY HIMSELF, AND WAS ABLE TO STAND.
[2021-06-14 11:38] VITALS: BP 110/73; PULSE 80; RESP 18; O2SAT 97
[2021-06-14 12:12] LABS: Add Urine Microscopic? NO; Charge for UA Resulting for Rev
--- NOTE | 2021-06-14 12:16 | CT_ITS ---
WS: [id number] CTA HEAD AND NECK TECHNIQUE: Contrast enhanced CTA of the head and neck with coronal and sagittal reformatted images an d maximum intensity projection (MIP) images. NASCET criteria utilized. CLINICAL INFORMATION: AMS COMPARISON: None. DLP: 2434.[address] scans at [facility] use at least one of these dose optimization techniques: automated e xposure control; mA and/or kV adjustment per patient size (includes targeted exams where dose is matc hed to clinical indication); or iterative reconstruction. FINDINGS: RIGHT: Right common carotid artery is patent. Right ICA is patent to the skull base. Tortuous right c ervical ICA. Calcified atheromatous plaque right carotid bulb. No significant right ICA stenosis. LEFT: Left common carotid artery is patent. Moderate calcified atheromatous plaque left carotid bulb. No significant left ICA stenosis. Tortuous left cervical ICA. Left ICA is patent to the skull base. INTRACRANIAL CTA: Right dominant vertebral artery. Patent left vertebral artery. Basilar artery is patent. Normal vascu larity to the DESIGN ENGINEERING SPECIALIST territory bilaterally. ICAs are patent the skull base. Normal vascularity to the JOHNATHAN and MCA territories bilaterally. No renaldo dence of flow-limiting stenosis. Left sphenoid sinusitis. Mild spondylitic changes cervical spine. CT/CT angio headneck* [id number] IMPRESSION: 1. No significant ICA stenosis. Both ICAs are patent to the skull base. 2. Moderate calcified atheromatous plaque both carotid bulbs. 3. Right dominant vertebral artery. Both vertebral arteries are patent. 4. No flow-limiting intracranial stenosis.
[2021-06-14 12:25] LABS: Urine Appearance Clear (CLEAR); Urine Color Yellow (Yellow); pH Urine 9 (5-7)
[2021-06-14 12:26] LABS: Bilirubin Urine Neg (Negative); Blood Urine Neg (Negative); Glucose Urine UA Norm (Normal); Ketones Urine Negative (Negative); Leukocyte Esterase Urine Negative (Negative); Nitrate Urine Negative (Negative); Protein Urine Neg (Negative); Sulfosalicylic Acid Urine Negative (Negative); Urobilinogen Urine Norm (Negative)
[2021-06-14 12:33] LABS: Basophils # 0.1 10^3/uL (0.0-0.1); Eosinophils # 0.1 10^3/uL (0.0-0.8); Eosinophils % 1.8 %; Hematocrit 30.5 % (42.0-52.0); Hemoglobin 9.6 g/dL (11.7-16.6); Lymphocytes # 0.7 10^3/uL (0.8-4.8); Lymphocytes % 11.2 %; Mean Corpuscular HGB Conc 31.5 g/dL (30.0-36.0); Mean Corpuscular Hemoglobin 27.6 pg (28.0-34.0); Mean Corpuscular Volume 87.6 fl (80-94); Mean Platelet Volume 9.9 fL (7.4-10.4); Monocytes % 15.7 %; Neutrophils # 4.23 10^3/uL (1.8-7.7); Nucleated Red Blood Cells % 0 %; Platelet Count 159 10^3/cmm (130-400); Red Blood Count 3.48 10^6/uL (4.1-5.3); Red Cell Distribution Width 14.3 % (12.1-15.1); White Blood Count 6.1 10^3/uL (4.0-10.0)
[2021-06-14 12:47] LABS: INR 1.36 (0.8-1.2)
[2021-06-14 12:55] LABS: Ammonia 98 umol/L (16-60)
[2021-06-14 13:06] LABS: Alanine Aminotransferase 29 U/L (0-41); Albumin Level 3.1 g/dL (3.5-5.2); Alkaline Phosphatase 79 IU/L (40-130); Anion Gap 17.9 (5-19); Aspartate Amino Transferase 27 U/L (0-40); Blood Urea Nitrogen 21 mg/dL (8-23); Calcium 8.6 mg/dL (8.5-10.5); Carbon Dioxide 19 mmol/L (22-29); Chloride 93 mmol/L (98-107); Globulin 2.6 g/dL (1.3-4.6); Glucose 166 mg/dL (65-115); Magnesium 1.6 mg/dL (1.7-2.3); Osmolality Calculated 267 mOsm/kg (285-295); Phosphorus 2.6 mg/dL (2.5-4.5); Potassium 4.9 mmol/L (3.5-5.1); Sodium 125 mmol/L (136-145); Thyroid Stimulating Hormone 2.36 uIU/mL (0.27-4.20); Total Bilirubin 1.3 mg/dL (0.15-1.2); Total Protein 5.7 g/dL (6.6-8.7)
[2021-06-14] MEDS: iohexol 350 mg/mL 100 mL Btl IV (13:09)
[2021-06-14 13:10] VITALS: BP 113/55; PULSE 82; RESP 15; O2SAT 96
[2021-06-14 13:12] LABS: Acetaminophen < 5.0 ug/mL (10-30); Alcohol Level < 10 mg/dL (0-10); Salicylate < 0.3 mg/dL (3-10)
--- NOTE | 2021-06-14 13:22 | PC.NURSE ---
PATIENT RETURN FROM CT.
[2021-06-14 15:57] VITALS: BP 99/64; PULSE 82; RESP 17; O2SAT 94
--- NOTE | 2021-06-14 16:01 | P.HP_ITS ---
Providers/Chief Complaint Primary Care Provider: Floresita Bustillo DO Chief Complaint: ALTER MENTAL STAT History of Present Illness Luis Muñoz is a 66 year old male with a past medical history of liver failure on the liver transplant list, portal hypertension, splenomegaly, hepatic encephalopathy, who presents to [facility] for confusion. Patient's tells me that they were up in [place] a few months ago, he was seen by [facility] hepatology, was put on the liver transplant list. Since he got in the hospital about a week ago he has been a bit more mobile, his mentation has significantly improved, at 1 point he was ambulating with his cane. But on the he came back to the emergency room because of a mechanical fall, he fell hit his head, family was told that his CAT scans were normal. This morning, his came to wake him up, but he was not waking up, which she found was quite strange, normally he does arouse more when his ammonia levels are this high. She does have ammonia levels have been in the high 150s in the past. No complaints of headaches, no blurry vision, no nausea, no vomiting. He did wake up in the middle night to urinate, with minimal assistance cording to . Currently patient is alert to person, not to place, not to time, he does follow commands such as squeezing my fingers, wiggling his toes, no facial droop no slurring of his words, I cannot discern any focal deficits. However patient does not does not know the date or time, he has no complaints, he does not know why he is here in the hospital. Initial work-up in the emergency room shows acute on chronic hyponatremia serum sodium 125. Acute on chronic hyperammonemia, 98. CT of the chest was negative for acute stroke, CTA no acute findings, chest x-ray no focal pneumonia. UA no UTI. He was supposed to have paracentesis on Saturday when he did not have enough fluid, no abdominal pain complaints, currently does have abdominal distention, but no pain complaints. Review of Systems General: Reports: ROS unobtainable due to mental status Medications/Allergies Home Medications Medication Instructions Recorded Confirmed Last Taken Type Xifaxan 550 mg PO BID 02/16/20 06/14/21 06/12/21 History levothyroxine 25 mcg PO DAILY@0800 02/16/20 06/14/21 06/12/21 History lactulose 60 ml PO .3 TO 5 TIMES A DAY 03/07/20 06/14/21 06/12/21 History omeprazole 20 mg PO BID 07/30/20 06/14/21 06/12/21 History fluticasone propionate [Flonase 2 spray INTRANASAL DAILY PRN 04/18/21 06/14/21 06/12/21 History Allergy Relief] furosemide 80 mg PO QAM 04/18/21 06/14/21 06/12/21 History hydrocodone-acetaminophen 1 tab PO Q6H PRN #20 tab 04/18/21 06/14/21 06/11/21 Rx ondansetron 4 mg PO Q8H PRN 04/18/21 06/14/21 06/14/21 08:00 History sucralfate 1 g PO BID 04/18/21 06/14/21 06/12/21 History betamethasone dipropionate 1 applic TOPICAL BID PRN 06/05/21 06/14/21 06/12/21 History oxycodone 10 mg PO Q6H PRN 06/05/21 06/14/21 06/11/21 History potassium chloride 20 meq PO DAILY 06/05/21 06/14/21 06/12/21 History promethazine 25 mg PO Q6H PRN 06/05/21 06/14/21 06/11/21 History spironolactone 100 mg PO BID #60 tab 06/06/21 06/14/21 06/12/21 Rx multivit with min-folic acid 1 tab PO DAILY 06/14/21 06/14/21 Unknown History [Adult Multivitamin Gummies] Allergies Allergy/AdvReac Type Severity Reaction Status Date / Time Sulfa (Sulfonamide Allergy ALGY-Rash Verified 06/03/21 17:06 Antibiotics) PFSH Acute PFSH: Medical History Acute hyponatremia -improved with hydration, on salt tablets -suspect some degree of this will persist chronically CKD (chronic kidney disease) stage 2, GFR 60-89 ml/min -baseline Cr wnl -current renal function at baseline GERD (gastroesophageal reflux disease) Hepatic encephalopathy -noted ammonia-69; mentation at baseline -on lactulose History of cirrhosis of liver -has been following up at [facility] in [place], less frequently lately due to coronavirus pandemic -normal LFTs History of diabetes mellitus -resume oral meds Hypertension -VSS -discontinue ARB, continue Aldactone; due to low normal BP and risk of hypotension Hypothyroidism -TSH wnl -continue levothyroxine Obstructive sleep apnea -CPAP qhs Surgical History H/O esophagogastroduodenoscopy (03/08/20) History of appendectomy History of arthroscopic knee surgery History of surgery on upper extremity History of umbilical hernia repair (04/18/21) History of vasectomy Family History Other Diabetes Social History Smoking and tobacco status: never smoked Quit status (tobacco): has quit using tobacco Alcohol intake: former Vitals/I&O/Wt Last Vital Signs Temp 98.6 F 06/14/21 10:59 Pulse 82 06/14/21 15:57 Resp 17 06/14/21 15:57 BP 99/64 06/14/21 15:57 Pulse Ox 94 06/14/21 15:57 Weight last 48 hrs Weight 81.647 kg Physical Exam Const: COMMON NORMALS: no acute distress GENERAL APPEARANCE: cooperative and comfortable ORIENTATION/CONSCIOUSNESS: Yes awake, Yes oriented to person and Yes oriented to place; not oriented to time Eye: COMMON NORMALS: Equal, round and reactive pupils present and EOMs intact bilaterally GENERAL EYE: appearance normal, both eyes and all related structures PUPIL: Yes Equal, round and reactive pupils present Neck/C-Spine: COMMON NORMALS: full ROM and no lymphadenopathy THYROID: Thyroid normal Lymph: LYMPHATIC: no lymphadenopathy noted Resp: COMMON NORMALS: normal respiratory effort, No retractions, No use of accessory muscles and clear to auscultation bilaterally AUSCULTATION: clear to auscultation bilaterally Cardio: COMMON NORMALS: regular rate, regular rhythm, S1 normal heart sound present, S2 normal heart sound present, No gallops present (Cardio), No clicks present (Cardio) and No murmurs present (Cardio) RATE: regular rate RHYTHM: regular rhythm HEART SOUNDS: S1 normal heart sound present and S2 normal heart sound present GI: COMMON NORMALS: Normal to inspection, nondistended, normoactive bowel sounds present, Soft to palpation and non-tender Extremity: COMMON NORMALS: normal to inspection, full ROM and no pedal edema Neuro: COMMON NORMALS: CN's II-XII intact bilaterally, moves all extremities and no focal motor deficits Data : 06/14/21 12:15 06/14/21 12:15 A&P Assessment and plan (1) Altered mental status: -Hyperammonemia, 98, is at his lactulose and rifaximin -We will increase lactulose to 30 g every 6 hours with rifaximin -Abdomen is slightly distended, no abdominal pain complaints will do ultrasound abdomen, with paracentesis, with studies, start on Primaxin for possible SBP -Full code -SCDs for DVT prophylaxis Acute on chronic hyponatremia, 125, secondary to liver failure, gentle IV hydration Status: Acute (2) Ascites: Status: Acute Qualifiers: Ascites type: other type Qualified Code(s): R18.8 - Other ascites (3) Acute hepatic encephalopathy: Status: Acute (4) 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: Status: Acute (5) Chronic hyponatremia: Status: Acute Attestations Medical Necessity Statement*: Patient requires hospitalization, outpatient with observation altered mental status Coding Level of Care Code 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
[2021-06-14 17:27] VITALS: BP 102/66; PULSE 79; RESP 16; O2SAT 98
--- NOTE | 2021-06-14 17:32 | PC.NURSE ---
NURSE WALKED IN TO PATIENT ROOM AND PATIENT WAS AWAKE. PATIENT ABLE TO KNOW NAME AND PLACE. PATIENT UNAWARE TO WHY HE WAS IN THE HOSPITAL. PATIENT STATES THAT HE WAS COLD, BLANKET PROVIDED. NO FURTHER NEEDS AT THIS TIME.
[2021-06-14 18:45] VITALS: BP 118/75; PULSE 80; RESP 16; TEMP 36.7; O2SAT 96
[2021-06-14] MEDS: sucralfate 1 gm Tablet PO (19:58)
[2021-06-14] MEDS: lactulose oral liq 20 gm/30 mL UDC 30 GM PO (19:58)
[2021-06-14] MEDS: sodium chloride 0.9% 1,000 ML 50 ML IV (19:58)
[2021-06-15] VITALS (7 sets, daily range): BP systolic 100–153; BP diastolic 61–73; PULSE 74–91; RESP 16–18; TEMP 36.6–37.2; O2SAT 95–98
[2021-06-15] MEDS: lactulose oral liq 20 gm/30 mL UDC 30 GM PO ×4 (01:02→21:08)
[2021-06-15 03:53] LABS: Basophils # 0.1 10^3/uL (0.0-0.1); Basophils % 1.6 %; Eosinophils # 0.2 10^3/uL (0.0-0.8); Eosinophils % 2.7 %; Hematocrit 28.7 % (42.0-52.0); Hemoglobin 9.6 g/dL (11.7-16.6); Lymphocytes # 0.8 10^3/uL (0.8-4.8); Lymphocytes % 15.1 %; Mean Corpuscular HGB Conc 33.4 g/dL (30.0-36.0); Mean Corpuscular Hemoglobin 28.6 pg (28.0-34.0); Mean Corpuscular Volume 85.4 fl (80-94); Mean Platelet Volume 9.8 fL (7.4-10.4); Monocytes # 1.1 10^3/uL (0.2-0.9); Monocytes % 19.5 %; Neutrophils # 3.32 10^3/uL (1.8-7.7); Neutrophils % 60.7 %; Nucleated Red Blood Cells % 0 %; Platelet Count 150 10^3/cmm (130-400); Red Blood Count 3.36 10^6/uL (4.1-5.3); Red Cell Distribution Width 14.4 % (12.1-15.1); White Blood Count 5.5 10^3/uL (4.0-10.0)
[2021-06-15 04:17] LABS: Alanine Aminotransferase 27 U/L (0-41); Albumin Level 2.8 g/dL (3.5-5.2); Alkaline Phosphatase 77 IU/L (40-130); Anion Gap 15.3 (5-19); Aspartate Amino Transferase 27 U/L (0-40); Blood Urea Nitrogen 19 mg/dL (8-23); Calcium 8.4 mg/dL (8.5-10.5); Carbon Dioxide 21 mmol/L (22-29); Chloride 99 mmol/L (98-107); Globulin 2.9 g/dL (1.3-4.6); Glucose 157 mg/dL (65-115); Magnesium 1.6 mg/dL (1.7-2.3); Osmolality Calculated 278 mOsm/kg (285-295); Phosphorus 3.5 mg/dL (2.5-4.5); Potassium 4.3 mmol/L (3.5-5.1); Sodium 131 mmol/L (136-145); Total Bilirubin 1.8 mg/dL (0.15-1.2); Total Protein 5.7 g/dL (6.6-8.7)
[2021-06-15 04:21] LABS: Cholesterol 168 mg/dL (0-200); HDL Cholesterol 60 mg/dL (60-100); LDL Cholesterol Calculated 98 mg/dL (50-129); LDL HDL Ratio 1.63 RATIO (0.00-3.22); NT Pro B Type Natriuretic Pept 191 pg/mL (0-125); Triglycerides 48 mg/dL (0-150)
[2021-06-15] MEDS: FUROsemide 40 mg Tablet 80 MG PO (05:22)
[2021-06-15] MEDS: spironolactone 25 mg Tablet 100 MG PO ×2 (08:00→17:41)
[2021-06-15] MEDS: levothyroxine 25 mcg Tablet PO (08:00)
[2021-06-15] MEDS: pantoprazole DR 40 mg Tablet PO (08:01)
[2021-06-15] MEDS: sucralfate 1 gm Tablet PO ×2 (08:01→17:41)
--- NOTE | 2021-06-15 10:27 | PC.CHAP ---
Pastoral Care Encounter/Spiritual Assessment Type of Contact [] Declined traffic rate analyst visit [] Patient/Family/Request visit [] Outpatient visit [] Follow-up visit [] Physician referral [] Code/Alert [x] Routine visit [] Staff referral [] Actively dying [] Patient sleeping [] Family support [] [] Out of room [] Palliative care [] [x] Receiving care in room [] Pre-surgical visit [] Trauma [x] Long length of stay [] ICU visit [] Other: Relational/Emotional Strength [] Patient feels connected with others/family/visitors/staff [x] Distress [] Loneliness/isolation [] Abandonment Spirituality of Patient [x] Person of Moni [] Attends Mu-Ism of their Moni [x] Believes in Prayer [] Reads Bible or Jew materials [] There are Spiritual issues to be addressed Presentation Manager Interventions [x] Prayer [x] Active listening [x] Non-anxious presence [x] Spiritual/emotional support [] Crisis/trauma care [x] Spiritual counseling [] Bereavement support [] Provided bereavement packet [] Provided Bible/devotional materials [] Provided toy/stuffed animal, coloring book to patient or family member [] Provided Communion [] Anointing/Tennyson [] Salvation [x] Completed spiritual assessment [] Other: Impact on Illness or Injury [] Angry [] Fearful [x] Anxious [] Often cries [] Exhaustion [x] Unable to work [] Unable to attend nondenominational [] Unable to walk/stand [] Unable to read [] Unable to drive [] Unable to eat/drink [] Unable to sleep [] Unable to be with family [] Patient intubated [] Other: Summary retired has some mental issues doesn't understand or able to coommunicate about his health Time spent with patient 10 mins
[2021-06-15] MEDS: sodium chloride 0.9% 1,000 ML 50 ML IV (15:59)
--- NOTE | 2021-06-15 16:20 | P.PN_ITS ---
Subjective Subjective: Interval history: This morning patient was seen, he is alert to person, to place, not to time, he is playing on his phone, he tells me that he feels a lot better, no nausea, no vomiting, no lightheadedness, dizziness Vitals/I&O/Wt Last Vital Signs Temp 98.4 F 06/15/21 15:30 Pulse 90 06/15/21 15:30 Resp 16 06/15/21 15:30 BP 105/67 06/15/21 15:30 Pulse Ox 98 06/15/21 15:30 06/15/21 06/15/21 06/15/21 06:59 14:59 22:59 Intake Total 100 / 260 100 / 100 1000 / 1100 Output Total 700 / 700 Balance 100 / 260 -600 / -600 1000 / 400 Weight last 48 hrs Weight 81.647 kg Physical Exam Const: COMMON NORMALS: no acute distress and patient oriented x3 Resp: COMMON NORMALS: normal respiratory effort, No retractions, No use of accessory muscles and clear to auscultation bilaterally AUSCULTATION: clear to auscultation bilaterally Cardio: COMMON NORMALS: regular rate, regular rhythm, S1 normal heart sound present and S2 normal heart sound present RATE: regular rate RHYTHM: regular rhythm HEART SOUNDS: S1 normal heart sound present and S2 normal heart sound present GI: COMMON NORMALS: Normal to inspection, nondistended, normoactive bowel sounds present, Soft to palpation and non-tender PALPATION: Yes Soft to palpation Extremity: COMMON NORMALS: no pedal edema Neuro: COMMON NORMALS: patient oriented x3 Psych: COMMON NORMALS: mental status grossly normal Data : 06/15/21 02:40 06/15/21 02:40 A&P Assessment and plan (1) Altered mental status: -Mentation is significantly improved -Hyperammonemia, 98, patient is adamant he has been taking his lactulose -We will increase lactulose to 30 g every 6 hours, with rifaximin -Abdomen is slightly distended, no abdominal pain complaints will do ultrasound abdomen, ultrasound of the abdomen no significant fluid to tap -Nonetheless continues Primaxin for SBP coverage -Full code -SCDs for DVT prophylaxis Acute on chronic hyponatremia, 125, secondary to liver failure, gentle IV hydration Status: Acute (2) Ascites: Status: Acute Qualifiers: Ascites type: other type Qualified Code(s): R18.8 - Other ascites (3) Acute hepatic encephalopathy: Status: Acute (4) 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: Status: Acute (5) Chronic hyponatremia: Status: Acute Attestations Medical Necessity Statement*: Patient requires hospitalization for altered mental status secondary to hyperammonemia Coding Level of Care Code 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
--- NOTE | 2021-06-15 19:33 | US_ITS ---
WS: [id number] INDICATION: Paracentesis TECHNIQUE: Four-quadrant ultrasound abdomen FINDINGS: Ultrasound preparacentesis. Only mild ascites is visualized in the 4 quadrants. Insufficien t fluid for paracentesis at this time. US/US abdomen lmt fluid [id number] IMPRESSION: Insufficient fluid for paracentesis at this time.
[2021-06-16] MEDS: lactulose oral liq 20 gm/30 mL UDC 30 GM PO ×2 (03:03→07:52)
[2021-06-16 04:00] VITALS: BP 101/61; PULSE 82; RESP 16; TEMP 36.8; O2SAT 98
[2021-06-16] MEDS: FUROsemide 40 mg Tablet 80 MG PO (05:19)
[2021-06-16 05:56] LABS: Basophils # 0.1 10^3/uL (0.0-0.1); Basophils % 1.4 %; Eosinophils # 0.2 10^3/uL (0.0-0.8); Eosinophils % 3.3 %; Hematocrit 29.1 % (42.0-52.0); Hemoglobin 9.4 g/dL (11.7-16.6); Lymphocytes # 0.8 10^3/uL (0.8-4.8); Lymphocytes % 16.6 %; Mean Corpuscular HGB Conc 32.3 g/dL (30.0-36.0); Mean Corpuscular Hemoglobin 27.6 pg (28.0-34.0); Mean Corpuscular Volume 85.6 fl (80-94); Mean Platelet Volume 9.4 fL (7.4-10.4); Monocytes # 0.9 10^3/uL (0.2-0.9); Monocytes % 18.1 %; Neutrophils # 2.93 10^3/uL (1.8-7.7); Neutrophils % 60.2 %; Nucleated Red Blood Cells % 0 %; Platelet Count 140 10^3/cmm (130-400); Red Cell Distribution Width 14.5 % (12.1-15.1); White Blood Count 4.9 10^3/uL (4.0-10.0)
[2021-06-16 06:11] LABS: Ammonia 20 umol/L (16-60)
[2021-06-16 06:21] LABS: Alanine Aminotransferase 28 U/L (0-41); Albumin Level 2.9 g/dL (3.5-5.2); Alkaline Phosphatase 75 IU/L (40-130); Anion Gap 15.1 (5-19); Aspartate Amino Transferase 32 U/L (0-40); Blood Urea Nitrogen 21 mg/dL (8-23); Calcium 8.1 mg/dL (8.5-10.5); Carbon Dioxide 18 mmol/L (22-29); Chloride 98 mmol/L (98-107); Globulin 2.6 g/dL (1.3-4.6); Glucose 205 mg/dL (65-115); Magnesium 1.5 mg/dL (1.7-2.3); Osmolality Calculated 273 mOsm/kg (285-295); Phosphorus 2.5 mg/dL (2.5-4.5); Potassium 4.1 mmol/L (3.5-5.1); Sodium 127 mmol/L (136-145); Total Bilirubin 1.2 mg/dL (0.15-1.2); Total Protein 5.5 g/dL (6.6-8.7)
[2021-06-16] MEDS: spironolactone 25 mg Tablet 100 MG PO (07:51)
[2021-06-16] MEDS: levothyroxine 25 mcg Tablet PO (07:52)
[2021-06-16] MEDS: pantoprazole DR 40 mg Tablet PO (07:52)
[2021-06-16] MEDS: sucralfate 1 gm Tablet PO (07:52)
[2021-06-16 08:00] VITALS: BP 116/75; PULSE 90; RESP 18; TEMP 36.8; O2SAT 98
--- NOTE | 2021-06-16 13:57 | PM.DCS ---
Discharge Providers Date of Admission: 06/15/21 16:44 Date of Discharge: June 16, 2021 Attending Provider at Admission: Per Will MD Attending Provider at Discharge: Per Will MD Primary Care Provider: Floresita Bustillo DO Diagnoses at Discharge Discharge Diagnosis (1) Altered mental status: Status: Acute (2) Ascites: Status: Acute Qualifiers: Ascites type: other type Qualified Code(s): R18.8 - Other ascites (3) Acute hepatic encephalopathy: Status: Acute (4) 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: Status: Acute (5) Chronic hyponatremia: Status: Acute Reason for Visit Reason for Visit: ALTER MENTAL STAT Hospital Course Hospital Course Luis Muñoz is a 66 year old male with a past medical history of liver failure on the liver transplant list, portal hypertension, splenomegaly, hepatic encephalopathy, who presents to [facility] for confusion. Patient's tells me that they were up in [place] a few months ago, he was seen by [facility] hepatology, was put on the liver transplant list. Patient was admitted to [facility] for altered mental status secondary to hepatic encephalopathy, hyperammonemia, received scheduled lactulose, rifaximin, clinically monitored. Patient's mentation significant improved back to baseline. Patient was discharged on increased dose of lactulose, patient and reports compliance, discharged on lactulose every 6 hours, with rifaximin with close follow-up with her distribution systems serviceperson as outpatient. For possible SBP, patient did not have significant ascites to tap on ultrasound, however patient has had recurrent hospitalizations for altered mental status, and his ammonia levels have been in the high normal range, and during his hospitalization he was started on antibiotic for SBP coverage, his mentation significantly improved. I have discharged him on ciprofloxacin 500 mg daily for SBP prophylaxis. Physical Exam Const: COMMON NORMALS: no acute distress and patient oriented x3 Resp: COMMON NORMALS: normal respiratory effort, No retractions, No use of accessory muscles and clear to auscultation bilaterally AUSCULTATION: clear to auscultation bilaterally Cardio: COMMON NORMALS: regular rate, regular rhythm, S1 normal heart sound present and S2 normal heart sound present RATE: regular rate RHYTHM: regular rhythm HEART SOUNDS: S1 normal heart sound present and S2 normal heart sound present GI: COMMON NORMALS: Normal to inspection, nondistended, normoactive bowel sounds present, Soft to palpation and non-tender PALPATION: Yes Soft to palpation Extremity: COMMON NORMALS: no pedal edema Neuro: COMMON NORMALS: patient oriented x3 Psych: COMMON NORMALS: mental status grossly normal Discharge Data Data Completed and Pending: Completed Studies During Hospitalization Category Date Time Status CT angio headneck * [id number] Urge nt Cat Scan 06/14/21 12:[address] head wo con* [id number] Urgent Cat Scan 06/14/21 11:08 Completed XR chest 1V cassie ble [id number] Urgent Exams 06/14/21 11:08 [place] [id number] Urgent Ultrasound 06/15/21 19:33 Completed Pending at discharge Category Date Time Status Albumin Body Flui d Routine Lab 06/14/21 19:33 Ordered Ammonia AM LABS Lab 06/17/21 04:00 Ordered Ammonia AM LABS Lab 06/18/21 04:00 Ordered Amylase Body Flui d Routine Lab 06/14/21 19:33 Ordered Anaerobic Culture Routine Lab 06/14/21 19:33 Ordered Body Fluid Analys is Routine Lab 06/14/21 19:33 Ordered Body Fluid Cultur e & GS Routine Lab 06/14/21 19:33 Ordered Complete Blood Co unt w/Auto AM LABS Lab 06/17/21 04:00 Ordered Comprehensive Met abolic Panel AM LA BS Lab 06/17/21 04:00 Ordered Fluid Alkaline Ph os. Routine Lab 06/14/21 19:33 Ordered Glucose Body Flui d Routine Lab 06/14/21 19:33 Ordered LDH Body Fluid Ro utine Lab 06/14/21 19:33 Ordered Magnesium AM LABS Lab 06/17/21 04:00 Ordered Phosphorus AM LAB S Lab 06/17/21 04:00 Ordered Total Protein Bod y Fluid Routine Lab 06/14/21 19:33 Ordered Triglycerides Bod y Fluid Routine Lab 06/14/21 19:33 Ordered Uric Acid Body Fl uid Routine Lab 06/14/21 19:33 Ordered pH Body Fluid Rou adrienne Lab 06/14/21 19:33 Ordered Labs from last 24 hours 06/16/21 06/16/21 06/16/21 05:18 05:18 05:18 WBC 4.9 RBC 3.40 L Hgb 9.4 L Hct 29.1 L MCV 85.6 MCH 27.6 L MCHC 32.3 RDW 14.5 Plt Count 140 MPV 9.4 Neut % (Auto) 60.2 Lymph % (Auto) 16.6 Pratt % (Auto) 18.1 Eos % (Auto) 3.3 Baso % (Auto) 1.4 Neut # (Auto) 2.93 Lymph # (Auto) 0.8 Pratt # (Auto) 0.9 Eos # (Auto) 0.2 Baso # (Auto) 0.1 Nucleated RBC % (a uto) 0 Nucleated RBCs # 0.0 Sodium 127 L Potassium 4.1 Chloride 98 Carbon Dioxide 18 L Anion Gap 15.1 BUN 21 Creatinine 1.0 GFR Calculation 75.0 L Glucose 205 H Calculated Osmolal ity 273 L Calcium 8.1 L Phosphorus 2.5 Magnesium 1.5 L Total Bilirubin 1.2 AST 32 ALT 28 Alkaline Phosphata se 75 Ammonia 20 Total Protein 5.5 L Albumin 2.9 L Globulin 2.6 Vitals: Last Vital Signs Temp 98.3 F 06/16/21 08:00 Pulse 90 06/16/21 08:00 Resp 18 06/16/21 08:00 BP 116/75 06/16/21 08:00 Pulse Ox 98 06/16/21 08:00 Discharge Plan Discharge Patient Disposition: Home Condition: Stable Prescriptions: New lactulose 20 gram/30 mL Solution 30 g PO Q6H 30 Days Qty: 5400 RF: 0 Cipro 500 mg tablet 500 mg PO DAILY 30 Days Qty: 30 RF: 0 Continued levothyroxine 25 mcg tablet 25 mcg PO DAILY@0800 RF: 0 Xifaxan 550 mg tablet 550 mg PO BID RF: 0 omeprazole 20 mg tablet,delayed release (DR/EC) 20 mg PO BID RF: 0 sucralfate 1 gram tablet 1 g PO BID RF: 0 furosemide 80 mg tablet 80 mg PO QAM RF: 0 ondansetron 4 mg tablet,disintegrating 4 mg PO Q8H PRN (Reason: Nausea And Vomiting) RF: 0 fluticasone propionate [Flonase Allergy Relief] 50 mcg/actuation [place],Suspension 2 spray INTRANASAL DAILY PRN (Reason: Allergy Symptoms) RF: 0 hydrocodone-acetaminophen 7.5-325 mg tablet 1 tab PO Q6H PRN (Reason: pain) Qty: 20 RF: 0 potassium chloride 20 mEq tablet,ER particles/crystals 20 meq PO DAILY RF: 0 betamethasone dipropionate 0.05 % Ointment 1 applic TOPICAL BID PRN (Reason: UNKNOWN) RF: 0 oxycodone 10 mg Tablet 10 mg PO Q6H PRN (Reason: Pain) RF: 0 promethazine 25 mg Tablet 25 mg PO Q6H PRN (Reason: Nausea And Vomiting) RF: 0 spironolactone 100 mg tablet 100 mg PO BID Qty: 60 RF: 3 Adult Multivitamin Gummies 200 mcg Tablet,Chewable 1 tab PO DAILY RF: 0 Discontinued lactulose 10 gram/15 mL solution 60 ml PO .3 TO 5 TIMES A DAY RF: 0 Discharge Orders: Discharge Order (Routine); Ordered 06/16/21 Ordered By: Per Will Referrals: Floresita Bustillo DO [Primary Care Provider] - Discharge Diet: Advance as tolerated Discharge Activity: Resume usual activity Patient Instructions: Ciprofloxacin (By mouth) (Cipro), Lactulose (By mouth) (Constulose, Enulose, Generlac, Kristalose), Opioid Safety Activity Restrictions/Additional Instructions: -Please use Xifaxan as prescribed -Please use lactulose as prescribed, titrate to 3-4 bowel movements a day -I have discharged you on ciprofloxacin for spontaneous bacterial peritonitis prophylaxis, please follow-up with liver doctor -Please drink plenty of electrolyte balance fluids such as Gatorade or Powerade Discharge Attestations Time Spent in Discharge Care*: less than 30 min Status at Discharge: Cognitive status at discharge: cognitively intact, Behavioral status at discharge: cooperative and independent in ADL's, Quality Metrics Clinical Quality Measures During this hospital stay, did patient experience: None Coding Level of Care Code Acute Chg FW DC note Diagnoses Altered mental status R41.82 Ascites R18.8 Ascites type: other type Acute hepatic encephalopathy K72.00 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 Chronic hyponatremia E87.1
== END 2021-06-16 14:32 | disposition home or self-care (01) | DRG 432 ==
LOC: ER 15:32 → MEDSURG 18:12
PROVIDERS: Admitting Provider Family Medicine; Emergency Provider Emergency Medicine; PCP Family Medicine; Visit Provider Family Medicine
DX: K70.40 Alcoholic hepatic failure without coma (principal); K65.2 Spontaneous bacterial peritonitis; E87.1 Hypo-osmolality and hyponatremia; K76.6 Portal hypertension; R18.8 Other ascites; F10.21 Alcohol dependence, in remission; E11.22 Type 2 diabetes mellitus with diabetic chronic kidney disease; I12.9 Hypertensive chronic kidney disease with stage 1 through stage 4 chronic kidney disease, or unspecified chronic kidney disease; N18.2 Chronic kidney disease, stage 2 (mild); K21.9 Gastro-esophageal reflux disease without esophagitis; E03.9 Hypothyroidism, unspecified; G47.33 Obstructive sleep apnea (adult) (pediatric); Z76.82 Awaiting organ transplant status; R16.1 Splenomegaly, not elsewhere classified; Z79.891 Long term (current) use of opiate analgesic
CPT/HCPCS: 36415; 36416; 49083; 51701; 70450; 70496; 70498; 71045; 76705; 80053; 80061; 80307; 81003; 82140; 82962; 83735; 83880; 84100; 84443; 85025; 85610; 93005; 99285; G0378; J0743; J7030; Q9967

== ENCOUNTER → 2021-06-26 09:26 | Day surgery (SDC) | payer MEDICARE, OTHER, SELFPAY ==
--- NOTE | 2021-06-26 09:49 | US_ITS ---
WS: [id number] INDICATION: Ascites. Cirrhosis. TECHNIQUE: Four-quadrant ultrasound abdomen. FINDINGS: Only minimal ascites visualized. Insufficient fluid for paracentesis. US/US abdomen lmt fluid [id number] IMPRESSION: Insufficient fluid for paracentesis.
--- NOTE | 2021-06-26 10:13 | PC.NURSE ---
Paracentesis not done. Not enough fluid.
== END ==
PROVIDERS: PCP Family Medicine; Visit Provider Internal Medicine Gastroenterology
DX: K74.60 Unspecified cirrhosis of liver (principal); R18.8 Other ascites
CPT/HCPCS: 76705

== ENCOUNTER → 2021-07-03 09:47 | Day surgery (SDC) | payer MEDICARE, OTHER, SELFPAY ==
--- NOTE | 2021-07-03 10:03 | US_ITS ---
WS: [id number] ULTRASOUND-GUIDED PARACENTESIS CLINICAL INFORMATION: Cirrhosis of liver without acites COMPARISON: None. Procedure Informed consent: The risks, benefits, and alternatives of the procedure were discussed with the sajan ent. Verbal and written consent was obtained. Timeout: A timeout was performed to confirm the correct patient, procedure, and site. Preparation: A suitable skin site was identified. The patient was prepped and draped in usual sterile fashion. Lidocaine 1% was used for local anesthesia. Catheter: 4 [place] One-step [employer] catheter. Side: Left Lower quadrant. Fluid Volume: 4300 ml Color: Clear yellow DISPOSITION: Discarded safely. Complications: None. Patient disposition: Discharged from the department in stable condition. US/US paracentesis abd w [id number] IMPRESSION: Uncomplicated ultrasound-guided paracentesis. Removal of 4300 cc
[2021-07-03 10:48] VITALS: BP 108/75; PULSE 84; RESP 20; TEMP 36.3; O2SAT 100; BMI 23.2
== END ==
PROVIDERS: PCP Family Medicine; Visit Provider Internal Medicine Gastroenterology
DX: K74.60 Unspecified cirrhosis of liver (principal)
CPT/HCPCS: 49083; 96365; P9047

== ENCOUNTER 2021-07-10 10:30 | Outpatient (CLI) | payer MEDICARE, OTHER, SELFPAY ==
--- NOTE | 2021-07-10 10:38 | US_ITS ---
WS: [id number] ULTRASOUND-GUIDED PARACENTESIS CLINICAL INFORMATION: ascites COMPARISON: None. Procedure Informed consent: The risks, benefits, and alternatives of the procedure were discussed with the sajan ent. Verbal and written consent was obtained. Timeout: A timeout was performed to confirm the correct patient, procedure, and site. Preparation: A suitable skin site was identified. The patient was prepped and draped in usual sterile fashion. Lidocaine 1% was used for local anesthesia. Catheter: 4 Thai One-step Yueh catheter. Side: Left Lower quadrant. Fluid Volume: 4000 ml Color: Clear yellow DISPOSITION: Discarded safely. Complications: None. Patient disposition: Discharged from the department in stable condition. US/US paracentesis abd w [id number] IMPRESSION: Uncomplicated ultrasound-guided paracentesis. Removal of 4000 cc of ascites
[2021-07-10 10:53] VITALS: BP 109/67; PULSE 81; RESP 20; TEMP 36.1; O2SAT 100; BMI 24.3
[2021-07-10 13:00] VITALS: BP 103/57; PULSE 74; RESP 18; O2SAT 100
== END 2021-07-10 10:31 | disposition home or self-care (01) ==
LOC: RAD 10:32
PROVIDERS: PCP Family Medicine; Visit Provider Internal Medicine Gastroenterology
DX: R18.8 Other ascites (principal)
CPT/HCPCS: 49083; 96365; P9047

== ENCOUNTER 2021-07-24 09:23 | Day surgery (SDC) | payer MEDICARE, OTHER, SELFPAY ==
[2021-07-20 13:34] VITALS: BMI 24.0
[2021-07-24 08:50] VITALS: BP 113/53; PULSE 93; RESP 18; O2SAT 100
--- NOTE | 2021-07-24 09:37 | US_ITS ---
WS: [id number] ULTRASOUND-GUIDED PARACENTESIS CLINICAL INFORMATION: ascites COMPARISON: None. Procedure Informed consent: The risks, benefits, and alternatives of the procedure were discussed with the sajan ent. Verbal and written consent was obtained. Timeout: A timeout was performed to confirm the correct patient, procedure, and site. Preparation: A suitable skin site was identified. The patient was prepped and draped in usual sterile fashion. Lidocaine 1% was used for local anesthesia. Catheter: 4 [place] One-step Yueh catheter. Side: Left Lower quadrant. Fluid Volume: 4950 ml Color: Clear fluid DISPOSITION: Fluid sent for requested diagnostic tests. Remainder Discarded safely. Complications: None. US/US paracentesis abd w [id number] IMPRESSION: Uncomplicated ultrasound-guided paracentesis. Removal of 4950 cc
[2021-07-24 09:56] VITALS: BMI 24.3
[2021-07-24 10:18] LABS: INR 1.33 (0.8-1.2)
[2021-07-24 11:34] LABS: Polynuclear # Cells, Perit 0.001 10^3/uL
[2021-07-24 14:18] LABS: Appearance, Peritoneal Fluid Hazy (Clear); Color, Peritoneal Fluid Pale Yellow (Pale Yellow)
[2021-07-24 14:21] LABS: RBC Pertioneal Fluid 0 10^3/uL; WBC Peritoneal Fluid 1 /uL
== END 2021-07-24 12:51 | disposition home or self-care (01) ==
LOC: GILAB 09:25
PROVIDERS: Radiology Neuroradiology; PCP Family Medicine; Visit Provider Internal Medicine Gastroenterology
PROC: (CPT 49082; principal; 2021-07-24 10:15)
DX: R18.8 Other ascites (principal)
CPT/HCPCS: 36415; 49083; 80500; 85610; 87070; 87075; 87205; 89050; 96365; P9047

== ENCOUNTER 2021-08-05 15:27 | Emergency (ER) | payer MEDICARE, OTHER, SELFPAY ==
[2021-08-05] VITALS (17 sets, daily range): BP systolic 96–112; BP diastolic 58–67; PULSE 76–97; RESP 16–18; TEMP 34.1–36.9; O2SAT 95–100; BMI 24.1
--- NOTE | 2021-08-05 16:43 | ED_ITS ---
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 He has a history of varices with banding as well as recurrent GI bleeds. He presents today with generalized malaise and fatigue. Symptoms have been worsening gradually for approximately 1 week. He denies associated infectious symptoms. He had a few days of darker stools however this has improved. He has been compliant with his medication regimen. He followed with his primary care provider and was found to have a hemoglobin of 5.5 and referred to the emergency department. Generalized weakness is moderate intensity. Course has been worsening. He has had similar episodes in past. No other significant changes in health, exacerbating, or relieving factors identified. Onset/Timin (week) Initial visit (ago): day(s) Initial visit for: other Returns today for: other Description of abnormal result: Low hemoglobin Symptoms since prior visit: fever Context: called for abnormal lab result Associated symptoms: malaise and other Review of Systems General: Reports: 10 or more systems reviewed and unremarkable except in HPI and below PFSH ED PFSH: Medical History Acute hyponatremia -improved with hydration, on salt tablets -suspect some degree of this will persist chronically CKD (chronic kidney disease) stage 2, GFR 60-89 ml/min -baseline Cr wnl -current renal function at baseline GERD (gastroesophageal reflux disease) Hepatic encephalopathy -noted ammonia-69; mentation at baseline -on lactulose History of cirrhosis of liver -has been following up at [facility] in [place] [address], less frequently lately due to coronavirus pandemic -normal LFTs History of diabetes mellitus -resume oral meds Hypertension -VSS -discontinue ARB, continue Aldactone; due to low normal BP and risk of hypotension Hypothyroidism -TSH wnl -continue levothyroxine Obstructive sleep apnea -CPAP qhs Surgical History H/O esophagogastroduodenoscopy (03/08/20) History of appendectomy History of arthroscopic knee surgery History of surgery on upper extremity History of umbilical hernia repair (04/18/21) History of vasectomy Family History Other Diabetes Social History Smoking and tobacco status: never smoked Quit status (tobacco): has quit using tobacco Alcohol intake: former Physical Exam Const: COMMON NORMALS: alert GENERAL APPEARANCE: cooperative and well developed OTHER: Mild pallor, no jaundice HENMT: COMMON NORMALS: normocephalic and atraumatic HEAD & SCALP: normocephalic and atraumatic THROAT: posterior oropharynx normal Eye: COMMON NORMALS: conjunctivae normal CONJUNCTIVA: Yes conjunctivae normal SCLERA: sclerae normal Neck/C-Spine: COMMON NORMALS: supple GENERAL: Yes trachea midline Resp: COMMON NORMALS: normal respiratory effort EFFORT & INSPECTION: Yes able to speak in complete sentences Cardio: COMMON NORMALS: regular rate and regular rhythm RATE: regular rate RHYTHM: regular rhythm GI: COMMON NORMALS: Soft to palpation PALPATION: Yes Soft to palpation and No Tenderness to palpation present (GI) PERCUSSION: normal to percussion Extremity: GENERAL: Yes normal exam except as noted and No edema Neuro: COMMON NORMALS: moves all extremities SENSORIUM/ORIENTATION: Yes jovan rt and No Orientation impaired Psych: COMMON NORMALS: mental status grossly normal and Normal thought process present THOUGHT PROCESS: Normal thought process present Course ED course: - Patient was seen and evaluated by me at bedside - Patient placed on cardiac monitors, IV access obtained - Initial evaluation notable for exam as above. Benign abdominal exam likely fluid present as reported in history with planned outpatient paracentesis. - Labs notable for no leukocytosis. Hemoglobin is low with normal platelet count. Metabolic panel appears fairly similar to prior likely related to chronic underlying liver disease and other medical problems. - Based on clinical history and exam I do not feel that imaging is needed at th is time. - I discussed the results of ED evaluation to this point including recommendation for blood transfusion. I explained reasoning, risks, benefits and consented patient for blood with all questions answered. - This is a challenging situation as the patient has history of similar and has a reasonable explanation for findings. Under normal circumstances patient would be under consideration for admission and repeat laboratory study however the patient expresses desire to be discharged after transfusion and the current COVID-19 pandemic means that no beds are available in our hospital. Therefore, while not optimal, it is probably reasonable for the patient to be discharged with strict return precautions and close outpatient follow-up. The patient is vitally stable and not orthostatic. Note: Click bubbles or prepopulated lucero in note writing are used for assistance with data collection and billing and are inherently more limited than narrative and other text portions of this note. Please use narrative for additional clinical history and defer to narrative/free test for any case of contradictory information. If information appears in only free text or click bubble it sh ould be considered present or absent as reported. Please contact note machine sign writer for clarifications of clinical information or contradictory information. MDM is a brief summary, contradictory or erroneous seeming information should be clarified and full note should be reviewed. Vital Signs: Vital signs: Vital Signs Temperature 93.4 F L 08/05/21 22:29 Pulse Rate 76 08/06/21 00:01 Respiratory Rate 16 08/06/21 00:01 Blood Pressure 112/64 08/06/21 00:01 Pulse Oximetry 100 08/06/21 00:01 MDM - Recheck/Abnormal Lab/Rx MDM Narrative Medical decision making narrative: 66-year-old gentleman with history of liver cirrhosis secondary to Delacruz and known recurrent need for transfusion likely secondary to chronic GI bleeds presenting with low hemoglobin. Patient does have a history earlier in the week of some darker stools however no complaint currently. Benign exam. Patient care handed off to overnight ED physician pending completion of blood transfusion and discharge. Medical Records Attestation: I reviewed the patient's medical records. Lab Data Attestation: I reviewed the patient's lab results. Result diagrams: 08/05/21 16:56 08/05/21 16:56 Labs: Lab Results 08/05/21 08/05/21 08/05/21 16:56 16:56 17:15 WBC 5.8 10^3/uL 10^3/uL (4.0-10.0) RBC 2.54 10^6/uL L 10^6/uL (4.1-5.3) Hgb 5.5 g/dL L* g/dL (11.7-16.6) Hct 18.2 % L* % (42.0-52.0) MCV 71.7 fl L fl (80-94) MCH 21.7 pg L pg (28.0-34.0) MCHC 30.2 g/dL g/dL (30.0-36.0) RDW 17.7 % H % (12.1-15.1) Plt Count 203 10^3/cmm 10^3/cmm (130-400) MPV 9.4 fL fL (7.4-10.4) Neut % (Auto) 66.9 % % Lymph % (Auto) 12.4 % % [place] % (Auto) 18.0 % % Eos % (Auto) 1.7 % % Baso % (Auto) 0.5 % % Neut # (Auto) 3.87 10^3/uL 10^3/uL (1.8-7.7) Lymph # (Auto) 0.7 10^3/uL L 10^3/uL (0.8-4.8) [place] # (Auto) 1.0 10^3/uL H 10^3/uL (0.2-0.9) Eos # (Auto) 0.1 10^3/uL 10^3/uL (0.0-0.8) Baso # (Auto) 0.0 10^3/uL 10^3/uL (0.0-0.1) Nucleated RBC % (auto) 0 % % Nucleated RBCs # 0.0 /100WBC /100WBC PT INR Sodium 126 mmol/L L mmol/L (136-145) Potassium 4.7 mmol/L mmol/L (3.5-5.1) Chloride 96 mmol/L L mmol/L (98-107) Carbon Dioxide 15 mmol/L L mmol/L (22-29) Anion Gap 19.7 H (5-19) BUN 38 mg/dL H mg/dL (8-23) Creatinine 1.2 mg/dL mg/dL (0.7-1.2) GFR Calculation 60.8 mL/min L mL/min (90-130) Glucose 178 mg/dL H mg/dL (65-115) Calculated Osmolality 275 mOsm/kg L mOsm/kg (285-295) Calcium 9.2 mg/dL mg/dL (8.5-10.5) Total Bilirubin 1.1 mg/dL mg/dL (0.15-1.2) AST 41 U/L H U/L (0-40) ALT 41 U/L U/L (0-41) Alkaline Phosphatase 82 IU/L IU/L (40-130) NT-Pro-B Natriuret Pep 182 pg/mL H pg/mL (0-125) Total Protein 5.9 g/dL L g/dL (6.6-8.7) Albumin 3.3 g/dL L g/dL (3.5-5.2) Globulin 2.6 g/dL g/dL (1.3-4.6) Blood Type A Positive Rho(D) Type Positive Antibody Screen Negative Crossmatch See Detail 08/05/21 17:23 WBC RBC Hgb Hct MCV MCH MCHC RDW Plt Count MPV Neut % (Auto) Lymph % (Auto) [place] % (Auto) Eos % (Auto) Baso % (Auto) Neut # (Auto) Lymph # (Auto) [place] # (Auto) Eos # (Auto) Baso # (Auto) Nucleated RBC % (auto) Nucleated RBCs # PT 17.20 SECONDS H SECONDS (12.1-14.9) INR 1.37 H (0.8-1.2) Sodium Potassium Chloride Carbon Dioxide Anion Gap BUN Creatinine GFR Calculation Glucose Calculated Osmolality Calcium Total Bilirubin AST ALT Alkaline Phosphatase NT-Pro-B Natriuret Pep Total Protein Albumin Globulin Blood Type Rho(D) Type Antibody Screen Crossmatch Discharge Plan Discharge Patient Disposition: Home Clinical Impression: Anemia, Liver cirrhosis secondary to DELACRUZ, Hyponatremia Condition: Stable Prescriptions: No Action levothyroxine 25 mcg tablet 25 mcg PO DAILY@0800 0RF Xifaxan 550 mg tablet 550 mg PO BID 0RF omeprazole 20 mg tablet,delayed release (DR/EC) 20 mg PO BID 0RF sucralfate 1 gram tablet 1 g PO BID 0RF furosemide 80 mg tablet 80 mg PO QAM 0RF ondansetron 4 mg tablet,disintegrating 4 mg PO Q8H PRN (Reason: Nausea And Vomiting) 0RF fluticasone propionate [Flonase Allergy Relief] 50 mcg/actuation Edison,Suspension 2 spray INTRANASAL DAILY PRN (Reason: Allergy Symptoms) 0RF furosemide [Lasix] 40 mg Tablet 40 mg PO QPM 0RF spironolactone 50 mg Tablet 50 mg PO QPM 0RF spironolactone 100 mg tablet 100 mg PO QAM 0RF Rx Instructions: Please start from 06/11/2021 potassium chloride 20 mEq tablet,ER particles/crystals 20 meq PO DAILY 0RF betamethasone dipropionate 0.05 % Ointment 1 applic TOPICAL BID PRN (Reason: UNKNOWN) 0RF Adult Multivitamin Gummies 200 mcg Tablet,Chewable 1 tab PO DAILY 0RF ciprofloxacin HCl 500 mg tablet 500 mg PO DAILY 0RF lactulose 10 gram/15 mL solution See Rx Instructions .ROUTE .COMPLEX PRN (Reason: see protocol) 0RF Rx Instructions: 20grams per dose, 3-4 doses per day with goal being 3-5 bowel movements per day Farxiga 10 mg Tablet 10 mg PO DAILY 0RF Discharge Orders: Discharge ED (Routine); Ordered 08/05/21 Ordered By: Ubaldo Lester Referrals: Floresita Bustillo DO [Primary Care Provider] - 1-3 days Discharge Diet: Usual diet Discharge Activity: Resume usual activity Patient Instructions: Gastrointestinal Bleeding (ED), Anemia (ED), Blood Transfusion (DC) Activity Restrictions/Additional Instructions: Thank you for visiting the emergency department. You were seen and evaluated for low blood counts associated with symptoms. You were found to have anemia and received blood transfusion. The most likely cause of your symptoms is related to your underlying liver disease, you may have additional bleeding in t he GI tract however based on exam at this time you do not require inpatient treatment. You should follow-up with a electric welder helper as well as your primary care provider. Please return to the emergency department for recurrent dark stools, lightheadedness, dizziness, shortness of breath, chest pain, or anything else that you are concerned about and feel needs emergency department evaluation. Coding Level of Care Code ED Test Designer for Chg Fwd Documented by User: Ubaldo Lester DO 08/05/21 23:51 HPI - Recheck/Abnormal Lab/Rx General: Chief Complaint: Recheck/Abnormal Lab/Rx Stated Complaint: sent by due lab results, low hemoglobin Time Seen by Provider: 08/05/21 16:43 [facility] ED PFS: Medical History Acute hyponatremia -improved with hydration, on salt tablets -suspect some degree of this will persist chronically CKD (chronic kidney disease) stage 2, GFR 60-89 ml/min -baseline Cr wnl -current renal function at baseline GERD (gastroesophageal reflux disease) Hepatic encephalopathy -noted ammonia-69; mentation at baseline -on lactulose History of cirrhosis of liver -has been following up at [facility] in [place] [address], less frequently lately due to coronavirus pandemic -normal LFTs History of diabetes mellitus -resume oral meds Hypertension -VSS -discontinue ARB, continue Aldactone; due to low normal BP and risk of hypotension Hypothyroidism -TSH wnl -continue levothyroxine Obstructive sleep apnea -CPAP qhs Surgical History H/O esophagogastroduodenoscopy (03/08/20) History of appendectomy History of arthroscopic knee surgery History of surgery on upper extremity History of umbilical hernia repair (04/18/21) History of vasectomy Family History Other Diabetes Social History Smoking and tobacco status: never smoked Quit status (tobacco): has quit using tobacco Alcohol intake: former Course Vital Signs: Vital signs: Vital Signs Temperature 93.4 F L 08/05/21 22:29 Pulse Rate 76 08/06/21 00:01 Respiratory Rate 16 08/06/21 00:01 Blood Pressure 112/64 08/06/21 00:01 Pulse Oximetry 100 08/06/21 00:01 MDM - Recheck/Abnormal Lab/Rx MDM Narrative Medical decision making narrative: 86-year-old male checked out to me by the previous physician at shift change. This gentleman had a hemoglobin of 5.5. Likely related to chronic liver disease, although could have a slow bleed from GI tract. He has received transfusions before. He received 2 units of packed red cells here, without complication. He has had sufficient time postinfusion. He really wishes to go home. On my reexamination, his heart rate is 85, blood pressure 109/59, he is awake and talking. He will be allowed discharge to outpatient follow-up Lab Data Result diagrams: 08/05/21 16:56 08/05/21 16:56 Labs: Lab Results 08/05/21 08/05/21 08/05/21 16:56 16:56 17:15 WBC 5.8 10^3/uL 10^3/uL (4.0-10.0) RBC 2.54 10^6/uL L 10^6/uL (4.1-5.3) Hgb 5.5 g/dL L* g/dL (11.7-16.6) Hct 18.2 % L* % (42.0-52.0) MCV 71.7 fl L fl (80-94) MCH 21.7 pg L pg (28.0-34.0) MCHC 30.2 g/dL g/dL (30.0-36.0) RDW 17.7 % H % (12.1-15.1) Plt Count 203 10^3/cmm 10^3/cmm (130-400) MPV 9.4 fL fL (7.4-10.4) Neut % (Auto) 66.9 % % Lymph % (Auto) 12.4 % % [place] % (Auto) 18.0 % % Eos % (Auto) 1.7 % % Baso % (Auto) 0.5 % % Neut # (Auto) 3.87 10^3/uL 10^3/uL (1.8-7.7) Lymph # (Auto) 0.7 10^3/uL L 10^3/uL (0.8-4.8) [place] # (Auto) 1.0 10^3/uL H 10^3/uL (0.2-0.9) Eos # (Auto) 0.1 10^3/uL 10^3/uL (0.0-0.8) Baso # (Auto) 0.0 10^3/uL 10^3/uL (0.0-0.1) Nucleated RBC % (auto) 0 % % Nucleated RBCs # 0.0 /100WBC /100WBC PT INR Sodium 126 mmol/L L mmol/L (136-145) Potassium 4.7 mmol/L mmol/L (3.5-5.1) Chloride 96 mmol/L L mmol/L (98-107) Carbon Dioxide 15 mmol/L L mmol/L (22-29) Anion Gap 19.7 H (5-19) BUN 38 mg/dL H mg/dL (8-23) Creatinine 1.2 mg/dL mg/dL (0.7-1.2) GFR Calculation 60.8 mL/min L mL/min (90-130) Glucose 178 mg/dL H mg/dL (65-115) Calculated Osmolality 275 mOsm/kg L mOsm/kg (285-295) Calcium 9.2 mg/dL mg/dL (8.5-10.5) Total Bilirubin 1.1 mg/dL mg/dL (0.15-1.2) AST 41 U/L H U/L (0-40) ALT 41 U/L U/L (0-41) Alkaline Phosphatase 82 IU/L IU/L (40-130) NT-Pro-B Natriuret Pep 182 pg/mL H pg/mL (0-125) Total Protein 5.9 g/dL L g/dL (6.6-8.7) Albumin 3.3 g/dL L g/dL (3.5-5.2) Globulin 2.6 g/dL g/dL (1.3-4.6) Blood Type A Positive Rho(D) Type Positive Antibody Screen Negative Crossmatch See Detail 08/05/21 17:23 WBC RBC Hgb Hct MCV MCH MCHC RDW Plt Count MPV Neut % (Auto) Lymph % (Auto) [place] % (Auto) Eos % (Auto) Baso % (Auto) Neut # (Auto) Lymph # (Auto) [place] # (Auto) Eos # (Auto) Baso # (Auto) Nucleated RBC % (auto) Nucleated RBCs # PT 17.20 SECONDS H SECONDS (12.1-14.9) INR 1.37 H (0.8-1.2) Sodium Potassium Chloride Carbon Dioxide Anion Gap BUN Creatinine GFR Calculation Glucose Calculated Osmolality Calcium Total Bilirubin AST ALT Alkaline Phosphatase NT-Pro-B Natriuret Pep Total Protein Albumin Globulin Blood Type Rho(D) Type Antibody Screen Crossmatch Discharge Plan Discharge Patient Disposition: Home Clinical Impression: Anemia, Liver cirrhosis secondary to DELACRUZ, Hyponatremia Condition: Stable Prescriptions: No Action levothyroxine 25 mcg tablet 25 mcg PO DAILY@0800 0RF Xifaxan 550 mg tablet 550 mg PO BID 0RF omeprazole 20 mg tablet,delayed release (DR/EC) 20 mg PO BID 0RF sucralfate 1 gram tablet 1 g PO BID 0RF furosemide 80 mg tablet 80 mg PO QAM 0RF ondansetron 4 mg tablet,disintegrating 4 mg PO Q8H PRN (Reason: Nausea And Vomiting) 0RF fluticasone propionate [Flonase Allergy Relief] 50 mcg/actuation Edison,Suspension 2 spray INTRANASAL DAILY PRN (Reason: Allergy Symptoms) 0RF furosemide [Lasix] 40 mg Tablet 40 mg PO QPM 0RF spironolactone 50 mg Tablet 50 mg PO QPM 0RF spironolactone 100 mg tablet 100 mg PO QAM 0RF Rx Instructions: Please start from 06/11/2021 potassium chloride 20 mEq tablet,ER particles/crystals 20 meq PO DAILY 0RF betamethasone dipropionate 0.05 % Ointment 1 applic TOPICAL BID PRN (Reason: UNKNOWN) 0RF Adult Multivitamin Gummies 200 mcg Tablet,Chewable 1 tab PO DAILY 0RF ciprofloxacin HCl 500 mg tablet 500 mg PO DAILY 0RF lactulose 10 gram/15 mL solution See Rx Instructions .ROUTE .COMPLEX PRN (Reason: see protocol) 0RF Rx Instructions: 20grams per dose, 3-4 doses per day with goal being 3-5 bowel movements per day Farxiga 10 mg Tablet 10 mg PO DAILY 0RF Discharge Orders: Discharge ED (Routine); Ordered 08/05/21 Ordered By: Ubaldo Lester Referrals: Floresita Bustillo DO [Primary Care Provider] - 1-3 days Discharge Diet: Usual diet Discharge Activity: Resume usual activity Patient Instructions: Gastrointestinal Bleeding (ED), Anemia (ED), Blood Transfusion (DC) Activity Restrictions/Additional Instructions: Thank you for visiting the emergency department. You were seen and evaluated for low blood counts associated with symptoms. You were found to have anemia and received blood transfusion. The most likely cause of your symptoms is related to your underlying liver disease, you may have additional bleeding in the GI tract however based on exam at this time you do not require inpatient treatment. You should follow-up with a electric welder helper as well as your primary care provider. Please return to the emergency department for recurrent dark stools, lightheadedness, dizziness, shortness of breath, chest pain, or anything else that you are concerned about and feel needs emergency department evaluation. Coding Level of Care Code ED Test Designer for Yehuda Little
[2021-08-05 17:02] LABS: Basophils % 0.5 %; Eosinophils # 0.1 10^3/uL (0.0-0.8); Eosinophils % 1.7 %; Lymphocytes # 0.7 10^3/uL (0.8-4.8); Lymphocytes % 12.4 %; Mean Corpuscular HGB Conc 30.2 g/dL (30.0-36.0); Mean Corpuscular Hemoglobin 21.7 pg (28.0-34.0); Mean Corpuscular Volume 71.7 fl (80-94); Mean Platelet Volume 9.4 fL (7.4-10.4); Neutrophils # 3.87 10^3/uL (1.8-7.7); Neutrophils % 66.9 %; Nucleated Red Blood Cells % 0 %; Platelet Count 203 10^3/cmm (130-400); Red Blood Count 2.54 10^6/uL (4.1-5.3); Red Cell Distribution Width 17.7 % (12.1-15.1); White Blood Count 5.8 10^3/uL (4.0-10.0)
[2021-08-05 17:06] LABS: Hematocrit 18.2 % (42.0-52.0); Hemoglobin 5.5 g/dL (11.7-16.6)
[2021-08-05 17:31] LABS: Alanine Aminotransferase 41 U/L (0-41); Albumin Level 3.3 g/dL (3.5-5.2); Alkaline Phosphatase 82 IU/L (40-130); Anion Gap 19.7 (5-19); Aspartate Amino Transferase 41 U/L (0-40); Blood Urea Nitrogen 38 mg/dL (8-23); Calcium 9.2 mg/dL (8.5-10.5); Carbon Dioxide 15 mmol/L (22-29); Chloride 96 mmol/L (98-107); Globulin 2.6 g/dL (1.3-4.6); Glomerular Filtration Rate 60.8 mL/min (90-130); Glucose 178 mg/dL (65-115); NT Pro B Type Natriuretic Pept 182 pg/mL (0-125); Osmolality Calculated 275 mOsm/kg (285-295); Potassium 4.7 mmol/L (3.5-5.1); Sodium 126 mmol/L (136-145); Total Bilirubin 1.1 mg/dL (0.15-1.2); Total Protein 5.9 g/dL (6.6-8.7)
[2021-08-05 17:44] LABS: INR 1.37 (0.8-1.2)
[2021-08-05] MEDS: sodium chloride 0.9% 100 mL Bag 50 ML IV (19:36)
[2021-08-06 00:01] VITALS: BP 112/64; PULSE 76; RESP 16; O2SAT 100
== END 2021-08-06 00:05 | disposition home or self-care (01) ==
PROVIDERS: Emergency Medicine; Emergency Provider Emergency Medicine; PCP Family Medicine
DX: K75.81 Nonalcoholic steatohepatitis (NASH) (principal); K74.69 Other cirrhosis of liver; E87.1 Hypo-osmolality and hyponatremia; D64.9 Anemia, unspecified; I12.9 Hypertensive chronic kidney disease with stage 1 through stage 4 chronic kidney disease, or unspecified chronic kidney disease; E11.22 Type 2 diabetes mellitus with diabetic chronic kidney disease; N18.2 Chronic kidney disease, stage 2 (mild); Z87.891 Personal history of nicotine dependence
CPT/HCPCS: 36430; 80053; 83880; 85025; 85610; 86850; 86900; 86920; 96360; 96361; 99284; P9016

== ENCOUNTER 2021-08-07 09:32 | Day surgery (SDC) | payer MEDICARE, OTHER, SELFPAY ==
[2021-08-07 09:52] VITALS: BP 97/49; PULSE 83; RESP 18; TEMP 36.2; O2SAT 100
--- NOTE | 2021-08-07 10:02 | US_ITS ---
WS: [id number] ULTRASOUND-GUIDED PARACENTESIS CLINICAL INFORMATION: ascities due to liver disease COMPARISON: None. Procedure Informed consent: The risks, benefits, and alternatives of the procedure were discussed with the sajan ent. Verbal and written consent was obtained. Timeout: A timeout was performed to confirm the correct patient, procedure, and site. Preparation: A suitable skin site was identified. The patient was prepped and draped in usual sterile fashion. Lidocaine 1% was used for local anesthesia. Catheter: 4 [place] One-step [employer] catheter. Side: Right Lower quadrant. Fluid Volume: 6750 ml Color: Clear yellow DISPOSITION: Discarded safely. Complications: None. Patient disposition: Discharged from the department in stable condition. US/US paracentesis abd w 02100 IMPRESSION: Uncomplicated ultrasound-guided paracentesis. Removal of 6750cc
[2021-08-07 12:20] LABS: Mononuclear #, Pertinoneal Fl 1.969 10^3/uL; Polynuclear # Cells, Perit 4.333 10^3/uL
[2021-08-07 12:28] VITALS: BP 108/57; PULSE 80; RESP 18; O2SAT 100
[2021-08-07 14:31] LABS: Appearance, Peritoneal Fluid Cloudy (Clear); Color, Peritoneal Fluid Yellow (Pale Yellow); RBC Pertioneal Fluid 1 10^3/uL; WBC Peritoneal Fluid 6302 /uL
[2021-08-07 14:46] LABS: Pathology Referral Yes
== END 2021-08-07 13:46 | disposition home or self-care (01) ==
PROVIDERS: Radiology Neuroradiology; PCP Family Medicine; Visit Provider Internal Medicine Gastroenterology
PROC: (CPT 49082; principal; 2021-08-07 11:00)
DX: R18.8 Other ascites (principal); K76.9 Liver disease, unspecified
CPT/HCPCS: 49083; 80500; 87070; 87075; 87205; 89050; 96365; P9047

== ENCOUNTER 2021-08-07 16:04 | Outpatient (CLI) | payer MEDICARE, OTHER, SELFPAY ==
[2021-08-07 17:09] LABS: Iron 13 ug/dL (59-158); Percent Saturation 3.5 % (20-50); Total Iron Binding Capacity 368 mcg/dl; Unsaturated Iron Binding 355 ug/dL (112-347)
== END 2021-08-07 16:05 | disposition home or self-care (01) ==
PROVIDERS: PCP Family Medicine; Visit Provider Internal Medicine Medical Oncology
DX: D50.9 Iron deficiency anemia, unspecified (principal)
CPT/HCPCS: 83540; 83550

== ENCOUNTER 2021-08-10 13:18 | Outpatient (CLI) | payer MEDICARE, OTHER, SELFPAY ==
[2021-08-10] MEDS: ferric carboxy (IVPB) 750 MG in sodium chloride 0.9% (100 ml) 100 ML 460 MG IV (14:30)
== END 2021-08-10 13:19 | disposition home or self-care (01) ==
PROVIDERS: PCP Family Medicine; Visit Provider Internal Medicine Medical Oncology
DX: D50.9 Iron deficiency anemia, unspecified (principal)
CPT/HCPCS: 96365; J1439

== ENCOUNTER 2021-08-13 12:25 | Inpatient (IN) | payer MEDICARE, OTHER, SELFPAY ==
[2021-08-13 12:31] VITALS: BP 98/60; PULSE 82; RESP 18; TEMP 36.5; O2SAT 99; BMI 21.8
[2021-08-13 12:51] LABS: Basophils # 0.1 10^3/uL (0.0-0.1); Basophils % 0.7 %; Eosinophils # 0.1 10^3/uL (0.0-0.8); Eosinophils % 1.4 %; Hematocrit 25.1 % (42.0-52.0); Hemoglobin 7.5 g/dL (11.7-16.6); Lymphocytes # 0.7 10^3/uL (0.8-4.8); Lymphocytes % 8.3 %; Mean Corpuscular HGB Conc 29.9 g/dL (30.0-36.0); Monocytes # 1.2 10^3/uL (0.2-0.9); Monocytes % 13.3 %; Neutrophils # 6.59 10^3/uL (1.8-7.7); Neutrophils % 75.2 %; Nucleated Red Blood Cells % 0.2 %; Platelet Count 248 10^3/cmm (130-400); Red Blood Count 3.26 10^6/uL (4.1-5.3); White Blood Count 8.8 10^3/uL (4.0-10.0)
[2021-08-13 13:05] LABS: INR 1.38 (0.8-1.2)
[2021-08-13 13:06] LABS: Partial Thromboplastin Time 34.1 SECONDS (23.9-36.7)
[2021-08-13 13:13] LABS: Ammonia 146 umol/L (16-60)
[2021-08-13 13:14] LABS: Alanine Aminotransferase 44 U/L (0-41); Albumin Level 3.7 g/dL (3.5-5.2); Alkaline Phosphatase 93 IU/L (40-130); Aspartate Amino Transferase 45 U/L (0-40); Blood Urea Nitrogen 37 mg/dL (8-23); Calcium 9.1 mg/dL (8.5-10.5); Carbon Dioxide 16 mmol/L (22-29); Chloride 91 mmol/L (98-107); Globulin 2.7 g/dL (1.3-4.6); Glomerular Filtration Rate 40.7 mL/min (90-130); Glucose 182 mg/dL (65-115); Osmolality Calculated 271 mOsm/kg (285-295); Sodium 124 mmol/L (136-145); Total Bilirubin 1.3 mg/dL (0.15-1.2); Total Protein 6.4 g/dL (6.6-8.7)
[2021-08-13 13:16] LABS: Anion Gap 22.4 (5-19); Potassium 5.4 mmol/L (3.5-5.1)
[2021-08-13 13:20] LABS: Lactate (Lactic Acid level) 6.5 mmol/L (0.5-2.2)
--- NOTE | 2021-08-13 13:20 | ED_ITS ---
HPI - General Adult General: Chief complaint: ER Hold Stated complaint: Abnormal labs Time Seen by Provider: 08/13/21 12:45 History of Present Illness: Patient is a 66-year-old male with history of cirrhosis complicated by multiple episodes of hepatic encephalopathy presenting to the emergency room after he is unable to tolerate lactulose and worsening confusion since 10:30 this AM. Patient's family medical patient has become more confused. He denies any fever chills, abdominal pain, nausea/vomiting, diarrhea, melena hematochezia. Patient has no other focal complaints per fam julia. Patient is on the liver transplant list in [place]. Onset: 10:30am Duration:ongoing Location:home Severity:severe Associated symptoms: Reports nausea; Deny chest pain, dyspnea, rash, palpitations or vomiting Review of Systems Const: Denies: fever(s) or chills Eyes: Denies: change in vision ENMT: Denies: mouth pain Card: Denies: chest pain or palpitations Resp: Denies: dyspnea or non-productive cough GI: Reports: nausea; Denies: abdominal pain, vomiting or diarrhea : Denies: dysuria Musc: Denies: extremity pain Skin/Breast: Denies: rash or new lesions Neuro: Reports: other (+confusion per family); Denies: weakness in extremities Psych: Reports: other (Normal mood) Ravi/Lymph: Denies: easy bruising PFSH ED PFSH: Medical History Acute hyponatremia -improved with hydration, on salt tablets -suspect some degree of this will persist chronically CKD (chronic kidney disease) stage 2, GFR 60-89 ml/min -baseline Cr wnl -current renal function at baseline GERD (gastroesophageal reflux disease) Hepatic encephalopathy -noted ammonia-69; mentation at baseline -on lactulose History of cirrhosis of liver -has been following up at [facility] in [place], less frequently lately due to cor onavirus pandemic -normal LFTs History of diabetes mellitus -resume oral meds Hypertension -VSS -discontinue ARB, continue Aldactone; due to low normal BP and risk of hypotension Hypothyroidism -TSH wnl -continue levothyroxine Obstructive sleep apnea -CPAP qhs Surgical History H/O esophagogastroduodenoscopy (03/08/20) History of appendectomy History of arthroscopic knee surgery History of surgery on upper extremity History of umbilical hernia repair (04/18/21) History of vasectomy Family History Other Diabetes Social History Smoking and tobacco status: never smoked Quit status (tobacco): has quit using tobacco Alcohol intake: former Physical Exam Const: COMMON NORMALS: alert HENMT: COMMON NORMALS: atraumatic HEAD & SCALP: atraumatic MOUTH: moist mucous membranes not abnormal Eye: COMMON NORMALS: EOMs intact bilaterally and conjunctivae normal CONJUNCTIVA: Yes conjunctivae normal Neck/C-Spine: COMMON NORMALS: full ROM and supple Resp: COMMON NORMALS: normal respiratory effort and clear to auscultation bilaterally AUSCULTATION: clear to auscultation bilaterally Cardio: COMMON NORMALS: regular rate RATE: regular rate GI: COMMON NORMALS: Soft to palpation and non-tender PALPATION: Yes Soft to palpation Extremity: COMMON NORMALS: full ROM Neuro: SENSORIUM/ORIENTATION: Yes alert MOTOR EXAM: No Abnormal motor strength present and Other motor observations present (no focal motor deficits) Psych: MOOD & AFFECT: Yes euthymic mood OTHER: +moderately confused, AAOx2(self and hospital), occasionally responding to questions and following commands, moving all extremities Course Vital Signs: Vital signs: Vital Signs Temperature 97.7 F 08/13/21 12:31 Pulse Rate 82 08/13/21 12:31 Respiratory Rate 18 08/13/21 12:31 Blood Pressure 126/82 08/13/21 15:11 Pulse Oximetry 99 08/13/21 15:11 MDM - General Adult Medical Decision Making 86-year-old male with history of end-stage liver disease presenting to the emergency room with complaints of worsening confusion today since 10:30am. Patient has had multiple episodes of hepatic encephalopathy. Patient is afebrile today, white count of 8.8. Patient has ammonia level of 146. Patient will admitted for hepatic encephalopathy. Do not suspect SBP or variceal bleeding. S/p NG tube placement with 30 mg of lactulose. Hemoglobin of 7.7 with hemoglobin of 5 2 weeks ago post transfusion. Lactic elevation likely secondary to cirrhosis, but cover empirically with zosyn today in the ED. Mild streaks of blood content from the NG tube today. Patient has had a recent banding for varices at [facility] in July 2021. Dr. Read agrees that this is unlikely to be variceal bleeding at this time since the volume is not significant, patient has not had any hematemesis/melena or hematochezia recently. Patient received protonix, octretide and rocephin just in case. Dr. Read agrees for admission in our hospital for close observation and management of hepatic encelopathy. Disposition: admission Lab Data : 08/13/21 12:40 08/13/21 12:40 Radiology Impressions Chest X-Ray 08/13/21 14:31 IMPRESSION: NG tube terminates in the stomach. Laboratory Results WBC 8.8 10^3/uL (4.0-10.0) 08/13/21 12:40 RBC 3.26 10^6/uL (4.1-5.3) L 08/13/21 12:40 Hgb 7.5 g/dL (11.7-16.6) L 08/13/21 12:40 Hct 25.1 % (42.0-52.0) L 08/13/21 12:40 MCV 77.0 fl (80-94) L 08/13/21 12:40 MCH 23.0 pg (28.0-34.0) L 08/13/21 12:40 MCHC 29.9 g/dL (30.0-36.0) L 08/13/21 12:40 RDW 22.0 % (12.1-15.1) H 08/13/21 12:40 Plt Count 248 10^3/cmm (130-400) 08/13/21 12:40 MPV 10.0 fL (7.4-10.4) 08/13/21 12:40 Neut % (Auto) 75.2 % 08/13/21 12:40 Lymph % (Auto) 8.3 % 08/13/21 12:40 Bandera % (Auto) 13.3 % 08/13/21 12:40 Eos % (Auto) 1.4 % 08/13/21 12:40 Baso % (Auto) 0.7 % 08/13/21 12:40 Neut # (Auto) 6.59 10^3/uL (1.8-7.7) 08/13/21 12:40 Lymph # (Auto) 0.7 10^3/uL (0.8-4.8) L 08/13/21 12:40 Bandera # (Auto) 1.2 10^3/uL (0.2-0.9) H 08/13/21 12:40 Eos # (Auto) 0.1 10^3/uL (0.0-0.8) 08/13/21 12:40 Baso # (Auto) 0.1 10^3/uL (0.0-0.1) 08/13/21 12:40 Nucleated RBC % (auto) 0.2 % 08/13/21 12:40 Nucleated RBCs # 0.0 /100WBC 08/13/21 12:40 PT 17.30 SECONDS (12.1-14.9) H 08/13/21 12:40 INR 1.38 (0.8-1.2) H 08/13/21 12:40 APTT 34.1 SECONDS (23.9-36.7) 08/13/21 12:40 Sodium 124 mmol/L (136-145) L 08/13/21 12:40 Potassium 5.4 mmol/L (3.5-5.1) H 08/13/21 12:40 Chloride 91 mmol/L (98-107) L 08/13/21 12:40 Carbon Dioxide 16 mmol/L (22-29) L 08/13/21 12:40 Anion Gap 22.4 (5-19) H 08/13/21 12:40 BUN 37 mg/dL (8-23) H 08/13/21 12:40 Creatinine 1.7 mg/dL (0.7-1.2) H 08/13/21 12:40 GFR Calculation 40.7 mL/min (90-130) L 08/13/21 12:40 Glucose 182 mg/dL (65-115) H 08/13/21 12:40 Calculated Osmolality 271 mOsm/kg (285-295) L 08/13/21 12:40 Lactate 6.5 mmol/L (0.5-2.2) H* 08/13/21 12:40 Calcium 9.1 mg/dL (8.5-10.5) 08/13/21 12:40 Total Bilirubin 1.3 mg/dL (0.15-1.2) H 08/13/21 12:40 AST 45 U/L (0-40) H 08/13/21 12:40 ALT 44 U/L (0-41) H 08/13/21 12:40 Alkaline Phosphatase 93 IU/L (40-130) 08/13/21 12:40 Ammonia 146 umol/L (16-60) H 08/13/21 12:40 Total Protein 6.4 g/dL (6.6-8.7) L 08/13/21 12:40 Albumin 3.7 g/dL (3.5-5.2) 08/13/21 12:40 Globulin 2.7 g/dL (1.3-4.6) 08/13/21 12:40 Imaging Data Other Imaging: Radiologist's impression: [address] [address] XRay Report Signed Patient: Luis Muñoz Unit #: [id number] : 1955 Age/Sex: 66 / M ADM Date: 08/13/21 Loc: ER IP Room/Bed: [place] [address]: Dipti Read MD Ordering Provider/Ordering MD: Adonis Francisco MD Date of Service: 08/13/21 Procedure(s): XR chest 1V portable [id number] Accession Number(s): [id number] Report Number: [id number] PROCEDURE INFORMATION: Exam: XR Chest Exam date and time: 08/13/2021 2:31 PM Age: 66 years old Clinical indication: Device placement; Ng tube; Additional info: Post ng placement TECHNIQUE: Imaging protocol: XR of the chest. Views: 1 view. COMPARISON: CR XR chest 1V portable [id number] 06/14/2021 11:14 AM FINDINGS: Tubes, catheters and devices: NG tube terminates in the stomach. Lungs: Unremarkable. No consolidation. Pleural spaces: Unremarkable. No pleural effusion. No pneumothorax. Heart/Mediastinum: Unremarkable. No cardiomegaly. Bones/joints: Unremarkable. XR/XR chest 1V portable [id number] IMPRESSION: NG tube terminates in the stomach. ? 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
[2021-08-13] MEDS: piperacillin-tazobactam 4.5 GM in sodium chloride 0.9% (plus) 50 ML IV (13:56)
[2021-08-13] MEDS: lactulose oral liq 20 gm/30 mL UDC 30 GM PO ×2 (14:01→21:01)
--- NOTE | 2021-08-13 14:09 | PM.HP ---
Providers/Chief Complaint Admitting Physician: Dipti Read MD Primary Care Provider: Floresita Bustillo DO Chief Complaint: Abnormal labs History of Present Illness Luis Muñoz is a 66 year old male who has history of nonalcoholic liver cirrhosis, currently on liver transplant list at [facility], his greenkeeper is Dr. Clark [facility], recently had gastric varices banding, history of banding x2, recent blood transfusion presented to the hospital for worsening of confusion. At home for last 2 to 3 days he has not been able to keep anything down he has missed his lactulose dose. He has become increasingly confused. No chest pain shortness of breath, fever. Family brought him to the hospital for further evaluation. In the ER, his hemoglobin was 7.5, son at the bedside, I spoke with the son and his Potassium 5.4, creatinine 1.7 lactate 6.5 No leukocytosis, abdomen is soft, ammonia level a hundred and forty-six, bilirubin 1.3, INR 1.3 He was given Zosyn, fluid bolus, lactulose, Sandostatin, Zofran, NG tube was placed which I would recommend to remove to avoid irritating esophageal mucosa/variceal bleed Patient has positive asterixis however he is able to follow commands to some extent Tried to transfer him to [facility] however do do not have any beds available Review of Systems General: Reports: ROS unobtainable due to medical condition (Hepatic encephalopathy) Medications/Allergies Home Medications Medication Instructions Recorded Confirmed Last Taken Type levothyroxine 25 mcg tablet 25 mcg PO DAILY@0800 02/16/20 08/04/21 06/12/21 History rifaximin 550 mg tablet (Xifaxan) 550 mg PO BID 02/16/20 08/04/21 06/12/21 History omeprazole 20 mg tablet,delayed 20 mg PO BID 07/30/20 08/04/21 06/12/21 History release fluticasone propionate 50 2 spray INTRANASAL DAILY PRN 04/18/21 08/04/21 06/12/21 History mcg/actuation nasal spray,suspension (Flonase Allergy Relief) furosemide 80 mg tablet 80 mg PO QA 04/18/21 08/04/21 06/12/21 History ondansetron 4 mg disintegrating 4 mg PO Q8H PRN 10/12/0208/04/21 06/14/21 08:00 History tablet sucralfate 1 gram tablet 1 g PO BID 04/18/21 08/04/21 06/12/21 History betamethasone dipropionate 0.05 % 1 applic TOPICAL BID PRN 06/05/21 08/04/21 06/12/21 History topical ointment potassium chloride 20 mEq 20 meq PO DAILY 06/05/21 08/04/21 06/12/21 History tablet,extended release(part/cryst) multivitamin with minerals-folic 1 tab PO DAILY 06/14/21 08/04/21 Unknown History acid 200 mcg chewable tablet (Adult Multivitamin Gummies) furosemide 40 mg tablet (Lasix) 40 mg PO QPM 07/10/21 08/04/21 Unknown History spironolactone 100 mg tablet 100 mg PO QAM 07/10/21 08/04/21 Unknown History spironolactone 50 mg tablet 50 mg PO QPM 07/10/21 08/04/21 Unknown History ciprofloxacin HCl 500 mg tablet 500 mg PO DAILY 07/20/21 08/04/21 Unknown History lactulose 10 gram/15 mL oral See Rx Instructions .ROUTE 07/20/21 08/04/21 Unknown History solution .COMPLEX PRN dapagliflozin 10 mg tablet 10 mg PO DAILY 08/07/21 08/07/21 Unknown History ([facility]) metformin 500 mg tablet 500 mg PO TID 08/13/21 08/13/21 08/12/21 History temazepam 7.5 mg capsule 7.5 mg PO BEDTIME 08/13/21 08/13/21 08/12/21 History Allergies Allergy/AdvReac Type Severity Reaction Status Date / Time Sulfa (Sulfonamide Allergy ALGY-Rash Verified 08/07/21 09:58 Antibiotics) PFSH Acute PFSH: Medical History Acute hyponatremia -improved with hydration, on salt tablets -suspect some degree of this will persist chronically CKD (chronic kidney disease) stage 2, GFR 60-89 ml/min -baseline Cr wnl -current renal function at baseline GERD (gastroesophageal reflux disease) Hepatic encephalopathy -noted ammonia-69; mentation at baseline -on lactulose History of cirrhosis of liver -has been following up at [facility] in [place], less frequently lately due to coronavirus pandemic -normal LFTs History of diabetes mellitus -resume oral meds Hypertension -VSS -discontinue ARB, continue Aldactone; due to low normal BP and risk of hypotension Hypothyroidism -TSH wnl -continue levothyroxine Obstructive sleep apnea -CPAP qhs Surgical History H/O esophagogastroduodenoscopy (03/08/20) History of appendectomy History of arthroscopic knee surgery History of surgery on upper extremity History of umbilical hernia repair (04/18/21) History of vasectomy Family History Other Diabetes Social History Smoking and tobacco status: never smoked Quit status (tobacco): has quit using tobacco Alcohol intake: former Vitals/I&O/Wt Last Vital Signs Temp 97.7 F 08/13/21 12:31 Pulse 82 08/13/21 12:31 Resp 18 08/13/21 12:31 BP 98/60 08/13/21 12:31 Pulse Ox 99 08/13/21 12:31 Weight last 48 hrs Weight 77.111 kg Physical Exam Narrative: EXAM NARRATIVE: Cachectic malnourished patient early male Able to follow some commands Looks dehydrated Abdomen is nontender Bowel sounds sluggish NG tube in place Son at the bedside Positive asterixis S1, S2 No audible stridor or wheezing Saturating well on room air No signs of edema of legs Data : 08/13/21 12:40 08/13/21 12:40 A&P Assessment and plan (1) Acute hepatic encephalopathy: Status: Acute (2) Hyponatremia: Status: Acute (3) 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: Status: Acute (4) Chronic hyponatremia: Status: Acute (5) Upper GI bleed: Status: Acute (6) Anemia: Status: Acute Plan Acute hepatic encephalopathy Patient has not been able to take lactulose and rifaximin Ammonia level very high Has received lactulose in the ER At home he has been getting 10 mg 3 times daily I will add rifaximin and lactulose high-dose Start ceftriaxone 1 g daily SS does not have beds to be transferred he is already on the liver transplant list, recently had esophageal varices banding Current hemoglobin 7.7 I will hold off on Lasix and spironolactone because of his soft blood pressure, meld score less than fifteen Full code Attestations Medical Necessity Statement*: More than two midnights anticipated Time Spent in Patient Care: 15 Coding Level of Care Code 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
[2021-08-13] MEDS: ondansetron 2 mg/ML SDV 2 mL 4 MG IVP (14:31)
--- NOTE | 2021-08-13 14:31 | XRR_ITS ---
PROCEDURE INFORMATION: Exam: XR Chest Exam date and time: 08/13/2021 2:31 PM Age: 66 years old Clinical indication: Device placement; Ng tube; Additional info: Post ng placement TECHNIQUE: Imaging protocol: XR of the chest. Views: 1 view. COMPARISON: CR XR chest 1V portable [id number] 06/14/2021 11:14 AM FINDINGS: Tubes, catheters and devices: NG tube terminates in the stomach. Lungs: Unremarkable. No consolidation. Pleural spaces: Unremarkable. No pleural effusion. No pneumothorax. Heart/Mediastinum: Unremarkable. No cardiomegaly. Bones/joints: Unremarkable. XR/XR chest 1V portable [id number] IMPRESSION: NG tube terminates in the stomach.
[2021-08-13 15:11] VITALS: BP 126/82; O2SAT 99
[2021-08-13 15:40] LABS: Add Urine Microscopic? NO; Charge for UA Resulting for Rev
[2021-08-13] MEDS: sodium chloride 0.9% 500 ML IV (15:46)
[2021-08-13 15:48] LABS: Bilirubin Urine Neg (Negative); Blood Urine Neg (Negative); Glucose Urine UA Trace (Normal); Ketones Urine Negative (Negative); Leukocyte Esterase Urine Negative (Negative); Nitrate Urine Negative (Negative); Protein Urine Neg (Negative); Specific Gravity, Urine 1.015 (1.005-1.030); Urine Appearance Clear (CLEAR); Urine Color Yellow (Yellow); Urobilinogen Urine Norm (Negative); pH Urine 5 (5-7)
[2021-08-13] MEDS: pantoprazole 40 mg SDV 80 MG IVP (16:17)
[2021-08-13] MEDS: octreotide 500 MCG in sodium chloride 0.9% (100 ml) 100 ML 10.1 MCG IV (16:35)
[2021-08-13] MEDS: cefTRIAXone 1,000 MG in sodium chloride 0.9% (plus) 50 ML 100 MG IV (16:35)
[2021-08-13 18:31] VITALS: BP 108/61; PULSE 78; RESP 17; O2SAT 97
--- NOTE | 2021-08-13 19:18 | PC.NURSE ---
Report called to TONI Dunlap on med surg.
[2021-08-13 20:00] VITALS: BP 108/61; PULSE 78; RESP 16; O2SAT 96
[2021-08-13] MEDS: sodium chloride 0.9% 1,000 ML 30 ML IV (21:00)
[2021-08-13] MEDS: sodium polystyrene sulfonate 15 gm/60 mL Btl PO (21:01)
[2021-08-13 22:07] VITALS: PULSE 80; RESP 18; O2SAT 94
--- NOTE | 2021-08-13 22:30 | PC.NURSE ---
NG tube was removed
[2021-08-13] MEDS: iron sucrose 200 MG in sodium chloride 0.9% (100 ml) 100 ML 220 MG IV (22:48)
[2021-08-14] VITALS (14 sets, daily range): BP systolic 80–131; BP diastolic 50–67; PULSE 66–81; RESP 16–18; TEMP 36.4–36.9; O2SAT 96–100
[2021-08-14 05:59] LABS: Basophils # 0.1 10^3/uL (0.0-0.1); Eosinophils # 0.2 10^3/uL (0.0-0.8); Eosinophils % 2.8 %; Lymphocytes # 0.9 10^3/uL (0.8-4.8); Lymphocytes % 13.8 %; Mean Platelet Volume 9.6 fL (7.4-10.4); Monocytes # 1.1 10^3/uL (0.2-0.9); Monocytes % 17.4 %; Neutrophils # 3.93 10^3/uL (1.8-7.7); Neutrophils % 63.7 %; Nucleated Red Blood Cells % 0 %; Platelet Count 181 10^3/cmm (130-400); Red Blood Count 2.69 10^6/uL (4.1-5.3); Red Cell Distribution Width 23.2 % (12.1-15.1); White Blood Count 6.2 10^3/uL (4.0-10.0)
[2021-08-14 06:08] LABS: Hematocrit 20.7 % (42.0-52.0); Hemoglobin 6.2 g/dL (11.7-16.6)
[2021-08-14 06:29] LABS: Alanine Aminotransferase 38 U/L (0-41); Albumin Level 3.2 g/dL (3.5-5.2); Alkaline Phosphatase 74 IU/L (40-130); Anion Gap 20.4 (5-19); Aspartate Amino Transferase 35 U/L (0-40); Blood Urea Nitrogen 38 mg/dL (8-23); Calcium 8.2 mg/dL (8.5-10.5); Carbon Dioxide 19 mmol/L (22-29); Chloride 94 mmol/L (98-107); Globulin 2.6 g/dL (1.3-4.6); Glomerular Filtration Rate 38.1 mL/min (90-130); Glucose 145 mg/dL (65-115); Osmolality Calculated 278 mOsm/kg (285-295); Potassium 5.4 mmol/L (3.5-5.1); Sodium 128 mmol/L (136-145); Total Bilirubin 1.1 mg/dL (0.15-1.2); Total Protein 5.8 g/dL (6.6-8.7)
[2021-08-14 07:36] LABS: Basophils # 0.1 10^3/uL (0.0-0.1); Eosinophils # 0.2 10^3/uL (0.0-0.8); Eosinophils % 2.7 %; Hematocrit 24.4 % (42.0-52.0); Hemoglobin 6.9 g/dL (11.7-16.6); Lymphocytes % 16.9 %; Mean Corpuscular HGB Conc 28.3 g/dL (30.0-36.0); Mean Corpuscular Volume 81.3 fl (80-94); Mean Platelet Volume 9.6 fL (7.4-10.4); Monocytes # 1.2 10^3/uL (0.2-0.9); Monocytes % 19.5 %; Neutrophils # 3.51 10^3/uL (1.8-7.7); Neutrophils % 58.9 %; Nucleated Red Blood Cells % 0 %; Platelet Count 151 10^3/cmm (130-400)
[2021-08-14 09:08] LABS: Lactate (Lactic Acid level) 3.5 mmol/L (0.5-2.2)
--- NOTE | 2021-08-14 09:35 | PC.CHAP ---
Pastoral Care Encounter/Spiritual Assessment Type of Contact [] Declined fitness services manager visit [] Patient/Family/Request visit [] Outpatient visit [] Follow-up visit [] Physician referral [] Code/Alert [x] Routine visit [] Staff referral [] Actively dying [] Patient sleeping [] Family support [] [] Out of room [] Palliative care [] [] Receiving care in room [] Pre-surgical visit [] Trauma [] Long length of stay [] ICU visit [] Other: Relational/Emotional Strength [x] Patient feels connected with others/family/visitors/staff [] Distress [] Loneliness/isolation [] Abandonment Spirituality of Patient [x] Person of Moni [] Attends Sikh of their Moni [] Believes in Prayer [] Reads Bible or Voodoo materials [] There are Spiritual issues to be addressed Home Therapy Teacher Interventions [x] Prayer [x] Active listening [x] Non-anxious presence [] Spiritual/emotional support [] Crisis/trauma care [] Spiritual counseling [] Bereavement support [] Provided bereavement packet [] Provided Bible/devotional materials [] Provided toy/stuffed animal, coloring book to patient or family member [] Provided Communion [] Anointing/[place] [] Salvation [x] Completed spiritual assessment [] Other: Impact on Illness or Injury [] Angry x] Fearful [] Anxious [] Often cries [] Exhaustion [] Unable to work [] Unable to attend sabianism [] Unable to walk/stand [] Unable to read [] Unable to drive [] Unable to eat/drink [] Unable to sleep [] Unable to be with family [] Patient intubated [] Other: Summary Time spent with patient 10 min
[2021-08-14] MEDS: octreotide 100 mcg/mL SDV SUBCUT ×2 (10:32→15:50)
[2021-08-14] MEDS: levothyroxine 25 mcg Tablet PO (10:32)
[2021-08-14] MEDS: pantoprazole 40 mg SDV IVP ×2 (10:33→17:54)
[2021-08-14] MEDS: lactulose oral liq 20 gm/30 mL UDC 30 GM PO ×2 (10:39→15:50)
[2021-08-14] MEDS: midodrine 5 mg TABLET 10 MG PO ×3 (10:39→20:43)
--- NOTE | 2021-08-14 11:36 | NUR.SHIFT ---
[facility] says that there is still no bed available.
--- NOTE | 2021-08-14 11:45 | PC.NURSE ---
Amber updated that Dr. Read still wants to work on a bed. [phone]
[2021-08-14 12:19] LABS: Glucose Point of Care 262 mg/dL (70-110)
--- NOTE | 2021-08-14 12:30 | P.PN_ITS ---
Subjective Subjective: Interval history: No active hematemesis or GI bleed noted Hemoglobin dropped 6.9, will give him 2 units, getting iron sucrose as well Soft blood pressure I will start octreotide and midodrine creatinine worsened hepatorenal syndrome? Patient is much more awake and alert today positive asterixis He had 1 bowel movement this morning COVID-19 exposure, his roommate had COVID-19, nursing staff notified me this morning Vitals/I&O/Wt Last Vital Signs Temp 97.5 F L 08/14/21 10:35 Pulse 73 08/14/21 10:35 Resp 16 08/14/21 10:35 BP 98/62 08/14/21 10:35 Pulse Ox 100 08/14/21 10:35 08/13/21 08/14/21 08/14/21 22:59 06:59 14:59 Intake Total 600 / 600 110 / 710 101 / 101 Output Total 700 / 700 Balance 600 / 600 -590 / 10 101 / 101 Weight last 48 hrs Weight 77.111 kg Physical Exam Narrative: EXAM NARRATIVE: Patient was using bedside commode Awake and alert Oriented to time place and person Positive asterixis Very fatigued and lethargic No signs of icterus S1, S2 Soft abdomen No signs of peritonitis Lower extremity no edema None labored breathing Saturating well on room air Data : 08/14/21 07:15 08/14/21 04:41 A&P Assessment and plan (1) Acute hepatic encephalopathy: Status: Acute (2) Hyponatremia: Status: Acute (3) 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 Started midodrine and octreotide gtt. If you are not able to octreotide gtt. 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
[2021-08-14] MEDS: sodium polystyrene sulfonate 15 gm/60 mL Btl PO (13:18)
[2021-08-14] MEDS: cefTRIAXone 1,000 MG in sodium chloride 0.9% (plus) 50 ML 100 MG IV (15:49)
--- NOTE | 2021-08-14 19:04 | PC.NURSE ---
Report to Fabi CHAVEZ at this time.
[2021-08-14] MEDS: octreotide 500 MCG in sodium chloride 0.9% (100 ml) 100 ML 10.1 MCG IV (23:22)
[2021-08-15] VITALS: BP 101/61; PULSE 88; RESP 16; TEMP 36.9; O2SAT 95
[2021-08-15 04:00] VITALS: BP 107/64; PULSE 104; RESP 17; TEMP 36.9; O2SAT 97
[2021-08-15 05:41] LABS: Basophils # 0.1 10^3/uL (0.0-0.1); Basophils % 1.6 %; Eosinophils # 0.2 10^3/uL (0.0-0.8); Eosinophils % 2.6 %; Hematocrit 29.4 % (42.0-52.0); Hemoglobin 8.9 g/dL (11.7-16.6); Lymphocytes # 0.8 10^3/uL (0.8-4.8); Lymphocytes % 11.7 %; Mean Corpuscular HGB Conc 30.3 g/dL (30.0-36.0); Mean Corpuscular Hemoglobin 24.9 pg (28.0-34.0); Mean Corpuscular Volume 82.4 fl (80-94); Mean Platelet Volume 9.5 fL (7.4-10.4); Monocytes # 1.1 10^3/uL (0.2-0.9); Monocytes % 16.2 %; Neutrophils # 4.61 10^3/uL (1.8-7.7); Neutrophils % 66.7 %; Nucleated Red Blood Cells % 0 %; Platelet Count 183 10^3/cmm (130-400); Red Blood Count 3.57 10^6/uL (4.1-5.3); Red Cell Distribution Width 24.8 % (12.1-15.1); White Blood Count 6.9 10^3/uL (4.0-10.0)
[2021-08-15 06:05] LABS: Anion Gap 16.8 (5-19); Blood Urea Nitrogen 34 mg/dL (8-23); Calcium 8.4 mg/dL (8.5-10.5); Carbon Dioxide 17 mmol/L (22-29); Chloride 98 mmol/L (98-107); Glomerular Filtration Rate 43.6 mL/min (90-130); Glucose 228 mg/dL (65-115); Osmolality Calculated 279 mOsm/kg (285-295); Potassium 4.8 mmol/L (3.5-5.1); Sodium 127 mmol/L (136-145)
[2021-08-15 07:32] VITALS: BP 95/57; PULSE 75; RESP 15; TEMP 37; O2SAT 96
[2021-08-15] MEDS: levothyroxine 25 mcg Tablet PO (08:41)
[2021-08-15] MEDS: pantoprazole 40 mg SDV IVP (08:41)
[2021-08-15] MEDS: midodrine 5 mg TABLET 10 MG PO (08:42)
--- NOTE | 2021-08-15 09:09 | PM.DCS ---
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 At home for last 2 to 3 days he has not been able to keep anything down he has missed his lactulose dose.? He has become increasingly confused.? No chest pain shortness of breath, fever.? Family brought him to the hospital for further evaluation. In the ER, his hemoglobin was 7.5, son at the bedside, I spoke with the son and his Potassium 5.4, creatinine 1.7 lactate 6.5 No leukocytosis, abdomen is soft, ammonia level a hundred and forty-six, bilirubin 1.3, INR 1.3 He was given Zosyn, fluid bolus, lactulose, Sandostatin, Zofran, NG tube was placed which I would recommend to remove to avoid irritating esophageal mucosa/variceal bleed Patient has positive asterixis however he is able to follow commands to some extent Tried to transfer him to [facility] however do do not have any beds available Hospital course Patient was admitted for management and evaluation of hepatic encephalopathy, he was noted able to take lactulose because of his emesis at home. His abdomen was nontender, he remained afebrile, no leukocytosis. His mentation improved with lactulose. NG tube was discontinued. He had more than 3 bowel movements within 24 hours. He was back to his baseline i.e. awake alert oriented to time place and person. also confirmed the improvement. Patient does have lactulose at home I will give him lactulose from our pharmacy as well. No active GI bleed or hematemesis. His hemoglobin dropped to 6.9 I gave him iron sucrose 1 bag and 2 units of PRBC which stabilized his hemoglobin. I also gave him midodrine and octreotide which did improve his creatinine, diuretics were held. High risk for hepatorenal syndrome. He is high risk for readmissions, he is already on liver transplant list at [facility], in case of further worsening he should be transferred to [facility] from the ER for TIPS in the interim before liver transplant. He also has history of variceal vessel band ligation x2, our hospital is not equipped to do these kind of procedures. Physical Exam Narrative: EXAM NARRATIVE: Patient was eating breakfast Awake and alert Oriented to time place and person Positive asterixis Very fatigued and lethargic No signs of icterus S1, S2 Soft abdomen No signs of peritonitis Lower extremity no edema None labored breathing Saturating well on room air Urinary Catheter Management: Kraus: Cath Placed During This Visit: yes Reason for Continuing Indwelling Catheter: Acute Urinary Retention or Obstruction Urinary Catheter Date of Insertion: 08/14/21 Urinary Catheter Time of Insertion: 13:30 Discharge Data Studies Completed and Pending Completed Studies During Hospitalization Category Date Time Status XR chest 1V portable [id number] Routine Exams 08/13/21 14:31 Completed Pending at discharge Category Date Time Status Lactate (Lactic Acid level) Stat Lab 08/15/21 07:39 Ordered Leukocyte Reduced RBC Stat Lab 08/14/21 07:15 Results Type and Screen Stat Lab 08/14/21 07:15 Results Radiology Impressions Chest X-Ray 08/13/21 14:31 IMPRESSION: NG tube terminates in the stomach. Laboratory Results WBC 6.9 10^3/uL (4.0-10.0) 08/15/21 04:19 RBC 3.57 10^6/uL (4.1-5.3) L 08/15/21 04:19 Hgb 8.9 g/dL (11.7-16.6) L 08/15/21 04:19 Hct 29.4 % (42.0-52.0) L 08/15/21 04:19 MCV 82.4 fl (80-94) 08/15/21 04:19 MCH 24.9 pg (28.0-34.0) L 08/15/21 04:19 MCHC 30.3 g/dL (30.0-36.0) D 02/01/22 04:19 RDW 24.8 % (12.1-15.1) H 08/15/21 04:19 Plt Count 183 10^3/cmm (130-400) 08/15/21 04:19 MPV 9.5 fL (7.4-10.4) 08/15/21 04:19 Neut % (Auto) 66.7 % 08/15/21 04:19 Lymph % (Auto) 11.7 % 08/15/21 04:19 [place] % (Auto) 16.2 % 08/15/21 04:19 Eos % (Auto) 2.6 % 08/15/21 04:19 Baso % (Auto) 1.6 % 08/15/21 04:19 Neut # (Auto) 4.61 10^3/uL (1.8-7.7) 08/15/21 04:19 Lymph # (Auto) 0.8 10^3/uL (0.8-4.8) 08/15/21 04:19 [place] # (Auto) 1.1 10^3/uL (0.2-0.9) H 08/15/21 04:19 Eos # (Auto) 0.2 10^3/uL (0.0-0.8) 08/15/21 04:19 Baso # (Auto) 0.1 10^3/uL (0.0-0.1) 08/15/21 04:19 Nucleated RBC % (auto) 0 % 08/15/21 04:19 Nucleated RBCs # 0.0 /100WBC 08/15/21 04:19 PT 17.30 SECONDS (12.1-14.9) H 08/13/21 12:40 INR 1.38 (0.8-1.2) H 08/13/21 12:40 APTT 34.1 SECONDS (23.9-36.7) 08/13/21 12:40 Sodium 127 mmol/L (136-145) L 08/15/21 04:19 Potassium 4.8 mmol/L (3.5-5.1) 08/15/21 04:19 Chloride 98 mmol/L (98-107) 08/15/21 04:19 Carbon Dioxide 17 mmol/L (22-29) L 08/15/21 04:19 Anion Gap 16.8 (5-19) 08/15/21 04:19 BUN 34 mg/dL (8-23) H 08/15/21 04:19 Creatinine 1.6 mg/dL (0.7-1.2) H 08/15/21 04:19 GFR Calculation 43.6 mL/min (90-130) L 08/15/21 04:19 Glucose 228 mg/dL (65-115) H 08/15/21 04:19 POC Glucose 262 mg/dL (70-110) H 08/14/21 11:49 Calculated Osmolality 279 mOsm/kg (285-295) L 08/15/21 04:19 Lactate 3.5 mmol/L (0.5-2.2) H 08/14/21 08:25 Calcium 8.4 mg/dL (8.5-10.5) L 08/15/21 04:19 Total Bilirubin 1.1 mg/dL (0.15-1.2) 08/14/21 04:41 AST 35 U/L (0-40) 08/14/21 04:41 ALT 38 U/L (0-41) 08/14/21 04:41 Alkaline Phosphatase 74 IU/L (40-130) 08/14/21 04:41 Ammonia 146 umol/L (16-60) H 08/13/21 12:40 Total Protein 5.8 g/dL (6.6-8.7) L 08/14/21 04:41 Albumin 3.2 g/dL (3.5-5.2) L 08/14/21 04:41 Globulin 2.6 g/dL (1.3-4.6) 08/14/21 04:41 Urine Color Yellow (Yellow) 08/13/21 13:10 Urine Appearance Clear (CLEAR) 08/13/21 13:10 Urine pH 5 (5-7) 08/13/21 13:10 Ur Specific [place] 1.015 (1.005-1.030) 08/13/21 13:10 Urine Protein Neg (Negative) 08/13/21 13:10 Urine Glucose (UA) Trace (Normal) H 08/13/21 13:10 Urine Ketones Negative (Negative) 08/13/21 13:10 Urine Blood Neg (Negative) 08/13/21 13:10 Urine Nitrate Negative (Negative) 08/13/21 13:10 Urine Bilirubin Neg (Negative) 08/13/21 13:10 Urine Urobilinogen Norm mg/dL (Negative) 08/13/21 13:10 Ur Leukocyte Esterase Negative (Negative) 08/13/21 13:10 Blood Type A Positive 08/14/21 07:15 Rho(D) Type Positive 08/14/21 07:15 Antibody Screen Negative 08/14/21 07:15 Crossmatch See Detail 08/14/21 07:15 Vitals Last Vital Signs Temp 98.6 F 08/15/21 07:32 Pulse 75 08/15/21 07:32 Resp 15 08/15/21 07:32 BP 95/57 08/15/21 07:32 Pulse Ox 96 08/15/21 07:32 Discharge Plan Discharge Patient Disposition: Home Condition: Stable Prescriptions: New lactulose 20 gram/30 mL solution 30 g PO TID Qty: 3000 7RF lactulose 20 gram/30 mL solution 30 g PO TID Qty: 1500 3RF Continued levothyroxine 25 mcg tablet 25 mcg PO DAILY@0800 0RF omeprazole 20 mg tablet,delayed release (DR/EC) 20 mg PO BID 0RF sucralfate 1 gram tablet 1 g PO BID 0RF furosemide 80 mg tablet 80 mg PO QAM 0RF ondansetron 4 mg tablet,disintegrating 4 mg PO Q8H PRN (Reason: Nausea And Vomiting) 0RF fluticasone propionate [Flonase Allergy Relief] 50 mcg/actuation [place],Suspension 2 spray INTRANASAL DAILY PRN (Reason: Allergy Symptoms) 0RF furosemide [Lasix] 40 mg Tablet 40 mg PO QPM 0RF spironolactone 50 mg Tablet 50 mg PO QPM 0RF spironolactone 100 mg tablet 100 mg PO QAM 0RF Rx Instructions: Please start from 06/11/2021 potassium chloride 20 mEq tablet,ER particles/crystals 20 meq PO DAILY 0RF betamethasone dipropionate 0.05 % Ointment 1 applic TOPICAL BID PRN (Reason: UNKNOWN) 0RF Adult Multivitamin Gummies 200 mcg Tablet,Chewable 1 tab PO DAILY 0RF ciprofloxacin HCl 500 mg tablet 500 mg PO DAILY 0RF Farxiga 10 mg Tablet 10 mg PO DAILY 0RF metformin 500 mg tablet 500 mg PO TID 0RF temazepam 7.5 mg capsule 7.5 mg PO BEDTIME 0RF Xifaxan 550 mg tablet 550 mg PO BID Qty: 90 3RF Discontinued lactulose 10 gram/15 mL solution See Rx Instructions .ROUTE .COMPLEX PRN (Reason: see protocol) 0RF Rx Instructions: 20grams per dose, 3-4 doses per day with goal being 3-5 bowel movements per day Discharge Orders: Discharge Order (Routine); Ordered 08/15/21 Ordered By: Dipti Read Referrals: Floresita Bustillo DO [Primary Care Provider] - 08/16/21 2:05 pm Discharge Diet: Regular Discharge Activity: Increase activity as tolerated Patient Instructions: Lactulose (By mouth), Hepatic Encephalopathy (GEN), Opioid Safety Discharge Attestations Time Spent in Discharge Care*: less than 30 min Status at Discharge: Cognitive status at discharge: cognitively intact, Behavioral status at discharge: cooperative and independent in ADL's, Quality Metrics Clinical Quality Measures [ No reported AMI, CVA or VTE this stay] Coding Level of Care Code Acute g 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
[2021-08-15 09:53] LABS: Lactate (Lactic Acid level) 3.4 mmol/L (0.5-2.2)
[2021-08-15 11:27] VITALS: BP 95/57; PULSE 75; RESP 15; TEMP 37; O2SAT 96
--- NOTE | 2021-08-15 11:29 | PC.NURSE ---
IV removed intact. Patient tolerated well. Patient is alert and orientated x3. Respirations even and non-labored on room air. Reviewed discharge with patient including follow up appointments and medications. Patient verbalized understanding of both. Patient assisted into wheel chair and pushed to private car.
== END 2021-08-15 11:30 | disposition home or self-care (01) | DRG 442 ==
LOC: ER 13:41 → ER IP 14:53 → MEDSURG 18:32
PROVIDERS: Family Medicine; Nurse Practitioner Family; Admitting Provider Internal Medicine; Emergency Provider Emergency Medicine; PCP Family Medicine; Visit Provider Internal Medicine
DX: K72.00 Acute and subacute hepatic failure without coma (principal); E87.1 Hypo-osmolality and hyponatremia; N17.9 Acute kidney failure, unspecified; K74.60 Unspecified cirrhosis of liver; K75.81 Nonalcoholic steatohepatitis (NASH); Z76.82 Awaiting organ transplant status; N18.2 Chronic kidney disease, stage 2 (mild); E03.9 Hypothyroidism, unspecified; G47.33 Obstructive sleep apnea (adult) (pediatric); D50.9 Iron deficiency anemia, unspecified; K21.9 Gastro-esophageal reflux disease without esophagitis; Z87.19 Personal history of other diseases of the digestive system; Z79.84 Long term (current) use of oral hypoglycemic drugs; I12.9 Hypertensive chronic kidney disease with stage 1 through stage 4 chronic kidney disease, or unspecified chronic kidney disease; E11.22 Type 2 diabetes mellitus with diabetic chronic kidney disease
CPT/HCPCS: 36415; 36416; 36430; 51702; 71045; 80048; 80053; 81003; 82140; 82962; 83605; 85025; 85610; 85730; 86850; 86900; 86920; 96365; 96366; 96367; 96372; 99285; C9113; J0696; J1439; J1756; J2354; J2405; J2543; J7030; J7040; P9016

== ENCOUNTER → 2021-08-21 10:58 | Day surgery (SDC) | payer MEDICARE, OTHER, SELFPAY ==
[2021-08-17 08:40] VITALS: BMI 22.7
[2021-08-21 11:15] VITALS: BP 114/66; PULSE 80; RESP 16; TEMP 36.2; O2SAT 98
--- NOTE | 2021-08-21 11:19 | US_ITS ---
WS: [id number] ULTRASOUND-GUIDED PARACENTESIS CLINICAL INFORMATION: ascites COMPARISON: None. Procedure Informed consent: The risks, benefits, and alternatives of the procedure were discussed with the sajan ent. Verbal and written consent was obtained. Timeout: A timeout was performed to confirm the correct patient, procedure, and site. Preparation: A suitable skin site was identified. The patient was prepped and draped in usual sterile fashion. Lidocaine 1% was used for local anesthesia. Catheter: 4 [place] One-step Yueh catheter. Side: LEFT Lower quadrant. Fluid Volume: 3200 ml Color: Clear yellow DISPOSITION: Discarded safely. Complications: None. Patient disposition: Discharged from the department in stable condition. US/US paracentesis abd w [id number] IMPRESSION: Uncomplicated ultrasound-guided paracentesis. Removal of 3200 cc
[2021-08-21 13:19] VITALS: BP 112/58; PULSE 79; RESP 15; O2SAT 100
== END ==
PROVIDERS: Radiology Neuroradiology; PCP Family Medicine; Visit Provider Internal Medicine Gastroenterology
PROC: (CPT 49082; principal; 2021-08-21 11:00)
DX: R18.8 Other ascites (principal)
CPT/HCPCS: 49083; 96365; P9047

== ENCOUNTER 2021-08-24 08:14 | Outpatient (CLI) | payer MEDICARE, OTHER, SELFPAY ==
[2021-08-24] MEDS: ferric carboxy (IVPB) 750 MG in sodium chloride 0.9% (100 ml) 100 ML 460 MG IV (09:00)
[2021-08-24 09:20] LABS: Basophils # 0.1 10^3/uL (0.0-0.1); Basophils % 1.5 %; Eosinophils # 0.1 10^3/uL (0.0-0.8); Eosinophils % 2.2 %; Hematocrit 29.3 % (42.0-52.0); Hemoglobin 9.2 g/dL (11.7-16.6); Lymphocytes # 0.6 10^3/uL (0.8-4.8); Lymphocytes % 14.1 %; Mean Corpuscular HGB Conc 31.4 g/dL (30.0-36.0); Mean Corpuscular Hemoglobin 27.4 pg (28.0-34.0); Mean Corpuscular Volume 87.2 fl (80-94); Mean Platelet Volume 10.7 fL (7.4-10.4); Monocytes # 0.8 10^3/uL (0.2-0.9); Monocytes % 17.6 %; Neutrophils # 2.92 10^3/uL (1.8-7.7); Neutrophils % 64.4 %; Nucleated Red Blood Cells % 0 %; Platelet Count 155 10^3/cmm (130-400); Red Blood Count 3.36 10^6/uL (4.1-5.3); Red Cell Distribution Width 28.4 % (12.1-15.1); White Blood Count 4.5 10^3/uL (4.0-10.0)
[2021-08-24 09:50] LABS: Alanine Aminotransferase 38 U/L (0-41); Albumin Level 3.8 g/dL (3.5-5.2); Alkaline Phosphatase 75 IU/L (40-130); Anion Gap 15.8 (5-19); Aspartate Amino Transferase 49 U/L (0-40); Blood Urea Nitrogen 29 mg/dL (8-23); Calcium 9.1 mg/dL (8.5-10.5); Carbon Dioxide 18 mmol/L (22-29); Chloride 97 mmol/L (98-107); Ferritin 300 ng/mL (30-400); Globulin 2.4 g/dL (1.3-4.6); Glucose 198 mg/dL (65-115); Osmolality Calculated 271 mOsm/kg (285-295); Potassium 5.8 mmol/L (3.5-5.1); Sodium 125 mmol/L (136-145); Total Bilirubin 1.2 mg/dL (0.15-1.2); Total Protein 6.2 g/dL (6.6-8.7)
--- NOTE | 2021-08-27 09:11 | ONC FU_ITS ---
Dr. Parham Patient Follow-Up Note Patient: Luis Muñoz Unit #: [id number]: [id number] Dicatated By: Dima Parham M.D.Date of Visit:Aug 24, 2021 Onc Med Follow-up/Prog Note Chief Complaint: Anemia. History of Present Illness: This is a 65 year-old man with recurrent anemia. I had seen him initially in February 2019 in regard to a mild thrombocytopenia, platelet count 104,000. At that time he was just borderline anemic with hemoglobin 12.0 g with normal red cell indices. His serum iron studies, though, did show low transferrin saturation at 12.2% and his ferritin was relatively low at 58 ng/mL. He had mildly elevated total bilirubin and mildly elevated SGOT/SGPT levels, and his CT abdomen did show findings consistent with cirrhosis of the liver with associated portal hypertension and splenomegaly. 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 Subsequent to my initial visit with him he had developed moderately severe anemia. In February 2020 he was admitted to the hospital with acute GI bleeding. His hemoglobin had dropped to 8 g. There was no active bleeding noted at that time. He did not require transfusion. His subsequent EGD showed chronic gastropathy in the antrum. There was no active bleeding noted. In July 2020 he was admitted to the hospital with acute hepatic encephalopathy. His hemoglobin at that time dropped to as low as 7.0 g, but he still did not require transfusion. During this time, he underwent esophageal banding on 2 occasions and he also had therapeutic paracentesis. I had seen him for a follow-up visit on 12/15/2020. At that point he was complaining of fatigue and lethargy. He had very limited activity. His hemoglobin was down to 8.9 g with hypochromic/microcytic red cell indices. His transferrin saturation was reported to be high, but on a repeat study it was low at 6.5%. He was then given parenteral iron replacement with 2 infusions of Injectafer. He experienced no adverse effects from the iron infusions. As of 02/27/2021 he remained anemic with hemoglobin 10.3 g. His serum iron studies showed low transferrin saturation at 7.2%, consistent with iron deficiency. He was then given 2 additional infusions of Injectafer. During follow-up he required further paracentesis procedures on 03/15, 03/24, and 04/12 for symptomatic management of the ascites. He had hospital admissions for hepatic encephalopathy in May and in June. On 08/05/2021 he was seen in the emergency room for recurrence of anemia in association with dark stools. His hemoglobin was down to 5.5 g. Serum iron studies at that time did show low transferrin saturation at 3.5%, consistent with iron deficiency. He was managed as an outpatient with PRBC transfusion. He was seen here on 08/10/2021 to begin parenteral iron replacement with Injectafer. On 08/13/2021 he was admitted to the hospital with recurrence of hepatic encephalopathy. He was still significantly anemic, hemoglobin 7.5 g. He does not have active GI bleeding, but with further decrease in his hemoglobin to 6.9 g, he was again transfused PRBC. He was discharged home on 08/15/2021. He is seen for a follow-up visit. He has been feeling tired. His activity is limited, but he is up and around at home. ECOG score is 2. He has good appetite. He has no fever or night sweats. He has been having sinus drainage, and he does have some cough associated with it. He has not had sore mouth or throat. He is short of breath with activity. He does not complain of chest pain. He was having a lot of nausea couple of weeks ago, but that seems to have resolved. He is not having acid reflux symptoms. He says his bowels are pretty good most of the time, though stools are still sometimes dark. He has been getting outpatient paracentesis on a weekly basis. He has urinary frequency and he has some difficulty controlling his bladder. He has some pain and stiffness in his shoulders, but no other joint or bone pain. He does not complain of headache. He has some orthostatic lightheadedness. He has no focal neurologic symptoms. Medications: Betamethasone Dipropionate (0.05 %) Ointment Topical b.i.d. PRN, Cipro 1 Tablet (of 500 mg) Oral daily, Enulose (10 g/15mL) Solution Oral Take as Directed, Fluticasone Propionate Suspension Nasal PRN, Furosemide 1 (80 mg) Tablet Oral daily, Furosemide (40 mg) Tablet Oral Take as Directed, HYDROcodone-Acetaminophen Tablet Oral PRN, Multi For Him 1 Tablet Oral daily, NovoLOG FlexPen Subcutaneous Take as Directed, Omeprazole 1 Tablet (of 20 mg) Tablet, enteric coated Oral b.i.d., Ondansetron Film Oral PRN, oxyCODONE HCl (10 mg) Tablet Oral Take as Directed, Potassium Chloride ER 1 Tablet (of 20 meq) Tablet, controlled release Oral daily, Promethazine HCl Tablet Oral PRN, Spironolactone (50 mg) Tablet Oral Take as Directed, Spironolactone 1 Tablet (of 100 mg) Oral daily, Sucralfate (1 g) Tablet Oral b.i.d., Synthroid 1 Tablet (of 25 mcg) Oral daily, Temazepam (7.5 mg) Capsule Oral Take as Directed, Xifaxan 1 Tablet (of 550 mg) Oral b.i.d. Allergies: Sulfa Antibiotics Vital Signs: Performed on Aug 24, 2021 14:15 Height - 74.00 in Weight - 191.8 lbs (HIGH) BSA - 2.13 sq.m BMI - 24.63 Temperature - 97.6 F (LOW) Pulse - 91 /min Respiration - 18 /min BP - 112/68 mm(hg) O2 Sat - 97 % Pain - 3 Fatigue - 6 Physical Examination: Constitutional - He appears generally weak, Eyes - Sclerae nonicteric. Conjunctivae clear, ENMT - No lesions noted in the oral cavity, Hematologic/Lymphatic - No cervical, clavicular, or axillary adenopathy, Respiratory - Lungs are clear with good air movement bilaterally, Cardiovascular - Heart rhythm is regular. There is a II/ systolic murmur. There is no gallop or rub noted, Abdomen - Mildly distended but soft. He does appear to have ascites. Liver and spleen are not overtly enlarged. There is no abdominal mass noted and there is no inguinal adenopathy, Extremities - There is 2+ lower extremity edema. He has extensive purpura, Neurologic - No focal neurologic deficits noted. Lab/Imaging: Test performed on Aug 24, 2021 09:05 Ferritin 300 ng/mL Sodium 125 mmol/L Potassium 5.8 mmol/L Chloride 97 mmol/L CO2 18 mmol/L Anion Gap 15.8 BUN 29 mg/dL Creatinine 1.0 mg/dL Cr Clearance (Est) 90.63 mL/min eGFR 75.0 mL/min Glucose 198 mg/dL Osmolality - Calculated 271 mOsm/kg Calcium 9.1 mg/dL Protein, Total 6.2 g/dL Albumin 3.8 g/dL Globulin 2.4 g/dL Bilirubin, Total 1.2 mg/dL ALT (SGPT) 38 U/L AST (SGOT) 49 U/L Alkaline Phosphatase 75 IU/L WBC 4.5 10 3/uL RBC 3.36 10 6/uL HGB 9.2 g/dL HCT 29.3 % MCV 87.2 fl MCH 27.4 pg MCHC 31.4 g/dL RDW 28.4 % Platelet Count 155 10 3/cmm MPV 10.7 fL Neutrophils 2.92 10 3/uL Lymphocytes 0.6 10 3/uL Monocytes 0.8 10 3/uL Eosinophils 0.1 10 3/uL Basophils 0.1 10 3/uL Neutrophil % 64.4 % Lymphocyte % 14.1 % Monocyte % 17.6 % Eosinophil % 2.2 % Basophils % 1.5 % NRBC % 0 % Anti-D Test Not Performed Blood Type Test Not Performed Antibody Screen (Gel) Test Not Performed Problem List: 1. Recurrent anemia 2. He has underlying cirrhosis of the liver with portal hypertension and splenomegaly. He has had associated GI bleeding and hepatic encephalopathy. 3. He also has associated ascites. 4. Hypertension. 5. Type II diabetes. 6. GERD. 7. Hypothyroidism. 8. Obstructive sleep apnea. 9. He has mild eczema. Problems Addressed with this Encounter and Plan: Patient with recurrent anemia in association with cirrhosis of the liver. At least some component of the anemia is due to iron deficiency, presumably from GI blood loss. He has required PRBC transfusion on multiple occasions and he also has required parenteral iron replacement with Injectafer. As of 08/05/2021 he has become significantly anemic again with transferrin saturation low at 3.5%, consistent with iron deficiency. He was transfused PRBC as an outpatient, and on 08/10/2021 he began further parenteral iron replacement with Injectafer. He had subsequently required hospital admission for hepatic encephalopathy, and during that time he received additional PRBC transfusion. He will now complete his second Injectafer infusion. As his hemoglobin is above transfusion threshold, he will be scheduled to have a follow-up CBC with Dr. Bustillo in 2 weeks. He will have repeat CBC and serum iron studies in 4 weeks. He will be given further PRBC transfusion and/or parenteral iron replacement as indicated. Signed By: Dima Parham M.D. <<Signature on File>>
== END 2021-08-24 08:15 | disposition home or self-care (01) ==
PROVIDERS: PCP Family Medicine; Visit Provider Internal Medicine Medical Oncology
DX: D50.9 Iron deficiency anemia, unspecified (principal); K76.0 Fatty (change of) liver, not elsewhere classified; K76.6 Portal hypertension; R16.1 Splenomegaly, not elsewhere classified; K72.90 Hepatic failure, unspecified without coma; R18.8 Other ascites; I10 Essential (primary) hypertension; E11.9 Type 2 diabetes mellitus without complications; K21.9 Gastro-esophageal reflux disease without esophagitis; E03.9 Hypothyroidism, unspecified; G47.33 Obstructive sleep apnea (adult) (pediatric); L30.9 Dermatitis, unspecified; Z79.899 Other long term (current) drug therapy
CPT/HCPCS: 80053; 82728; 85025; 96365; 99215; J1439

== ENCOUNTER 2021-09-04 11:05 | Day surgery (SDC) | payer MEDICARE, OTHER, SELFPAY ==
[2021-08-31 13:33] VITALS: BMI 23.7
--- NOTE | 2021-09-04 10:57 | US_ITS ---
WS: [id number] INDICATION: Paracentesis TECHNIQUE: Ultrasound paracentesis FINDINGS: Four-quadrant ultrasound. Insufficient fluid for paracentesis. Only minimal ascites. US/US abdomen lmt fluid [id number] IMPRESSION: Insufficient fluid for paracentesis
[2021-09-04 10:59] VITALS: BP 114/64; PULSE 82; RESP 16; TEMP 36.4; O2SAT 100; BMI 23.1
== END 2021-09-04 11:25 | disposition home or self-care (01) ==
PROVIDERS: PCP Family Medicine; Visit Provider Surgery
PROC: (CPT 49082; principal; 2021-09-04 12:00)
DX: R18.8 Other ascites (principal)
CPT/HCPCS: 49083; 76705

== ENCOUNTER 2021-09-06 06:00 | Outpatient (RCR) | payer MEDICARE, OTHER, SELFPAY | END 2021-09-11 23:59 | disposition home or self-care (01) | LOC: SPO 06:00 | PROVIDERS: PCP Family Medicine; Referring Provider Internal Medicine Gastroenterology; Visit Provider Internal Medicine Gastroenterology | DX: M62.81 Muscle weakness (generalized) (principal); R26.9 Unspecified abnormalities of gait and mobility; R54 Age-related physical debility | CPT/HCPCS: 97110; 97161; 97165 ==

== ENCOUNTER 2021-09-12 06:00 | Outpatient (RCR) | payer MEDICARE, OTHER, SELFPAY | END 2021-10-12 23:59 | disposition home or self-care (01) | LOC: SPO 06:00 | PROVIDERS: PCP Family Medicine; Referring Provider Internal Medicine Gastroenterology; Visit Provider Internal Medicine Gastroenterology | DX: M62.81 Muscle weakness (generalized) (principal) | CPT/HCPCS: 97110; 97140 ==

== ENCOUNTER 2021-09-14 12:38 | Outpatient (CLI) | payer MEDICARE, OTHER, SELFPAY ==
[2021-09-14] MEDS: ferric carboxy (IVPB) 750 MG in sodium chloride 0.9% (100 ml) 100 ML 460 MG IV (14:45)
--- NOTE | 2021-09-18 09:32 | ONC FU_ITS ---
Constance Lainez Progress Note Patient: Luis Muñoz Unit #: [id number]: 1955 Dicatated By: Constance Lainez N.P.Date of Visit:Sep 14, 2021 Onc MED Follow-up/Prog Note Chief Complaint: Anemia. History of Present Illness: This is a 65 year-old man with recurrent anemia. I had seen him initially in February 2019 in regard to a mild thrombocytopenia, platelet count 104,000. At that time he was just borderline anemic with hemoglobin 12.0 g with normal red cell indices. His serum iron studies, though, did show low transferrin saturation at 12.2% and his ferritin was relatively low at 58 ng/mL. He had mildly elevated total bilirubin and mildly elevated SGOT/SGPT levels, and his CT abdomen did show findings consistent with cirrhosis of the liver with associated portal hypertension and splenomegaly. With those findings, he was referred to a sectional belt mold assembler for further management. Subsequent to my initial visit with him he had developed moderately severe anemia. In February 2020 he was admitted to the hospital with acute GI bleeding. His hemoglobin had dropped to 8 g. There was no active bleeding noted at that time. He did not require transfusion. His subsequent EGD showed chronic gastropathy in the antrum. There was no active bleeding noted. In July 2020 he was admitted to the hospital with acute hepatic encephalopathy. His hemoglobin at that time dropped to as low as 7.0 g, but he still did not require transfusion. During this time, he underwent esophageal banding on 2 occasions and he also had therapeutic paracentesis. I had seen him for a follow-up visit on 12/15/2020. At that point he was complaining of fatigue and lethargy. He had very limited activity. His hemoglobin was down to 8.9 g with hypochromic/microcytic red cell indices. His transferrin saturation was reported to be high, but on a repeat study it was low at 6.5%. He was then given parenteral iron replacement with 2 infusions of Injectafer. He experienced no adverse effects from the iron infusions. As of 02/27/2021 he remained anemic with hemoglobin 10.3 g. His serum iron studies showed low transferrin saturation at 7.2%, consistent with iron deficiency. He was then given 2 additional infusions of Injectafer. During follow-up he required further paracentesis procedures on 03/15, 03/24, and 04/12 for symptomatic management of the ascites. He had hospital admissions for hepatic encephalopathy in May and in June. On 08/05/2021 he was seen in the emergency room for recurrence of anemia in association with dark stools. His hemoglobin was down to 5.5 g. Serum iron studies at that time did show low transferrin saturation at 3.5%, consistent with iron deficiency. He was managed as an outpatient with PRBC transfusion. He was seen here on 08/10/2021 to begin parenteral iron replacement with Injectafer. On 08/13/2021 he was admitted to the hospital with recurrence of hepatic encephalopathy. He was still significantly anemic, hemoglobin 7.5 g. He does not have active GI bleeding, but with further decrease in his hemoglobin to 6.9 g, he was again transfused PRBC. He was discharged home on 08/15/2021. Patient presents today for follow-up. He continues to have some fatigue although it improved after his Injectafer that he received August 10 and August 24, 2021. His appetite has been good. No fever, chills, night sweats. He has shortness of breath with activity. No cough or chest pain. His shortness of breath is some what related to his ascites which he receives paracentesis for weekly. He has had increased pain in his shoulders and upper back. No headache, dizziness. He did have a fall related to encephalopathy last week. Review Of Symptoms: See above. 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 PRN Cipro 1 Tablet (of 500 mg) Oral daily Enulose (10 g/15mL) Solution Oral Take as Directed Fluticasone Propionate Suspension Nasal PRN Furosemide 1 (80 mg) Tablet Oral daily Furosemide (40 mg) Tablet Oral Take as Directed HYDROcodone-Acetaminophen Tablet Oral PRN Multi For Him 1 Tablet Oral daily NovoLOG FlexPen Subcutaneous Take as Directed Omeprazole 1 Tablet (of 20 mg) Tablet, enteric coated Oral b.i.d. Ondansetron Film Oral PRN oxyCODONE HCl (10 mg) Tablet Oral Take as Directed Potassium Chloride ER 1 Tablet (of 20 meq) Tablet, controlled release Oral daily Promethazine HCl Tablet Oral PRN Spironolactone (50 mg) Tablet Oral Take as Directed Spironolactone 1 Tablet (of 100 mg) Oral daily Sucralfate (1 g) Tablet Oral b.i.d. Synthroid 1 Tablet (of 25 mcg) Oral daily Temazepam (7.5 mg) Capsule Oral Take as Directed Xifaxan 1 Tablet (of 550 mg) Oral b.i.d. Family History: Mr. Muñoz's mother at age 67: type II diabetes, and non alcoholic cirrhosis. Mr. Muñoz's father at age 83: heart disease. Mr. Muñoz has 1 brother who is alive. He has 2 sisters: 2 . Mr. Muñoz's first sister's heart disease. Father of heart disease at age 83. Mother at age 67 with nonalcoholic liver cirrhosis. She also had diabetes. A half-sister of heart disease, and another half-sister had a sudden . A half-brother is in good health. 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 Mr. Muñoz quit smoking 23 years ago but had smoked 1.0 pack/day for 20 years. He drinks daily. He consumes 5 drinks/day 7 days/week. He has a history of smoking 1 pack of cigarettes daily, but only for a few years. He quit smoking at age 25. He previously had moderate alcohol use, estimated at 3-6 ounces of liquor daily. Physical Examination: Performed on Sep 14, 2021 14:38: Height - 74.00 in, Weight - 198.8 lbs (HIGH), BSA - 2.17 sq.m, BMI - 25.52, Temperature - 98.0 F (LOW), Pulse - 87 /min, Respiration - 16 /min, BP - 107/68 mm(hg), O2 Sat - 97 %, Pain - 8, and Fatigue - 5. Performance Status: 2 - Ambulatory/capable of all self-care, unable to perform any work activities. Up and about more than 50% of waking hours. (ECOG) Constitutional Alert, cooperative, oriented. Mood and affect appropriate. Appears close to chronological age. Well nourished. Well developed. Head Normocephalic; no scars. Respiratory Lungs are clear to auscultation without rhonchi or wheezing. Cardiovascular Regular rate and rhythm of heart without murmurs, gallops or rubs. Abdomen Ascites noted. Psychiatric Alert and oriented times three. Coherent speech. Verbalizes understanding of our discussions today. Laboratory: Test performed on Aug 24, 2021 09:05 Ferritin 300 ng/mL Sodium 125 mmol/L Potassium 5.8 mmol/L Chloride 97 mmol/L CO2 18 mmol/L Anion Gap 15.8 BUN 29 mg/dL Creatinine 1.0 mg/dL Cr Clearance (Est) 90.63 mL/min eGFR 75.0 mL/min Glucose 198 mg/dL Osmolality - Calculated 271 mOsm/kg Calcium 9.1 mg/dL Protein, Total 6.2 g/dL Albumin 3.8 g/dL Globulin 2.4 g/dL Bilirubin, Total 1.2 mg/dL ALT (SGPT) 38 U/L AST (SGOT) 49 U/L Alkaline Phosphatase 75 IU/L WBC 4.5 10 3/uL RBC 3.36 10 6/uL HGB 9.2 g/dL HCT 29.3 % MCV 87.2 fl MCH 27.4 pg MCHC 31.4 g/dL RDW 28.4 % Platelet Count 155 10 3/cmm MPV 10.7 fL Neutrophils 2.92 10 3/uL Lymphocytes 0.6 10 3/uL Monocytes 0.8 10 3/uL Eosinophils 0.1 10 3/uL Basophils 0.1 10 3/uL Neutrophil % 64.4 % Lymphocyte % 14.1 % Monocyte % 17.6 % Eosinophil % 2.2 % Basophils % 1.5 % NRBC % 0 % Anti-D Test Not Performed Blood Type Test Not Performed Antibody Screen (Gel) Test Not Performed Test performed on Aug 05, 2021 16:56 Iron 13 mcg/dL Iron Binding Capacity (TIBC) 368 mcg/dl % Iron Saturation 3.5 % UIBC 355 mcg/dL Impression: 1. Recurrent anemia 2. He has underlying cirrhosis of the liver with portal hypertension and splenomegaly. He has had associated GI bleeding and hepatic encephalopathy. 3. He also has associated ascites. 4. Hypertension. 5. Type II diabetes. 6. GERD. 7. Hypothyroidism. 8. Obstructive sleep apnea. 9. He has mild eczema. Plan: Patient with recurrent anemia in association with cirrhosis of the liver. At least some component of the anemia is due to iron deficiency, presumably from GI blood loss. He has required PRBC transfusion on multiple occasions and he also has required parenteral iron replacement with Injectafer. Labs from [facility] that were performed on 09/11/2021 indicate hemoglobin is a 9.0 and hematocrit is 28.0. His folate was 14.8, ferritin 287, transferrin 265, iron 36 reticulocyte count percentage 4.9 haptoglobin at 82 and LDH of 224. He also had a alpha-fetoprotein tumor marker was 4.2. We will plan Injectafer infusion x1 today patient will return to the clinic in 1 month with CBC, CMP iron studies. Signed By: Constance Lainez N.P. <<Signature on File>>
== END 2021-09-14 12:39 | disposition home or self-care (01) ==
PROVIDERS: PCP Family Medicine; Visit Provider Internal Medicine Medical Oncology
DX: D50.9 Iron deficiency anemia, unspecified (principal); K74.60 Unspecified cirrhosis of liver; R18.8 Other ascites; I10 Essential (primary) hypertension; E11.9 Type 2 diabetes mellitus without complications; K21.9 Gastro-esophageal reflux disease without esophagitis; E03.9 Hypothyroidism, unspecified; G47.33 Obstructive sleep apnea (adult) (pediatric); K76.6 Portal hypertension; Z79.899 Other long term (current) drug therapy
CPT/HCPCS: 96365; 99215; J1439

== ENCOUNTER 2021-09-18 10:17 | Day surgery (SDC) | payer MEDICARE, OTHER, SELFPAY ==
[2021-09-13 14:21] VITALS: BMI 24.3
--- NOTE | 2021-09-18 10:31 | US_ITS ---
WS: [id number] ULTRASOUND-GUIDED THERAPEUTIC PARACENTESIS Procedure, risks, and complications have been explained to the patient. Consent is obtained. Utilizing aseptic technique and 1% buffered lidocaine, a small dermatome was made through which a 5 F rench Yueh catheter was inserted. Approximately 6700 ml of clear peritoneal fluid was obtained witho ut difficulty. No complications encountered. US/US paracentesis abd w [id number] IMPRESSION: Uncomplicated paracentesis yielding 6700 ml of peritoneal fluid.
[2021-09-18 10:42] VITALS: BP 122/67; PULSE 87; RESP 18; TEMP 36.6; O2SAT 100
[2021-09-18] MEDS: albumin 12.5 GM/50 ML VIAL IV (12:54)
[2021-09-18] MEDS: albumin 37.5 GM/150 ML VIAL IV (13:39)
== END 2021-09-18 14:45 | disposition home or self-care (01) ==
LOC: GILAB 10:19
PROVIDERS: Radiology Diagnostic Radiology; PCP Family Medicine; Visit Provider Family Medicine
PROC: (CPT 49082; principal; 2021-09-18 12:00)
DX: R18.8 Other ascites (principal)
CPT/HCPCS: 49083; P9047

== ENCOUNTER 2021-09-28 09:08 | Outpatient (CLI) | payer MEDICARE, OTHER, SELFPAY ==
[2021-09-28] VITALS (8 sets, daily range): BP systolic 91–112; BP diastolic 59–68; PULSE 61–68; RESP 16; TEMP 36.2–36.6; O2SAT 100
[2021-09-28 10:06] LABS: Basophils # 0.1 10^3/uL (0.0-0.1); Basophils % 1.5 %; Eosinophils # 0.2 10^3/uL (0.0-0.8); Eosinophils % 4.7 %; Hematocrit 24.4 % (42.0-52.0); Hemoglobin 7.8 g/dL (11.7-16.6); Lymphocytes # 0.6 10^3/uL (0.8-4.8); Mean Corpuscular Volume 96.8 fl (80-94); Monocytes # 0.6 10^3/uL (0.2-0.9); Monocytes % 16.7 %; Neutrophils # 2.04 10^3/uL (1.8-7.7); Neutrophils % 59.5 %; Nucleated Red Blood Cells % 0 %; Platelet Count 111 10^3/cmm (130-400); Red Blood Count 2.52 10^6/uL (4.1-5.3); Red Cell Distribution Width 19.8 % (12.1-15.1); White Blood Count 3.4 10^3/uL (4.0-10.0)
[2021-09-28] MEDS: diphenhydrAMINE 25 mg Capsule PO (10:55)
[2021-09-28] MEDS: acetaminophen 325 mg Tablet 650 MG PO (10:55)
[2021-09-28] MEDS: sodium chloride 0.9% 250 ML 999 ML IV (11:30)
[2021-09-28 12:58] LABS: Iron 35 ug/dL (59-158); Percent Saturation 16.8 % (20-50); Total Iron Binding Capacity 208 mcg/dl; Unsaturated Iron Binding 173 ug/dL (112-347)
[2021-09-28] MEDS: FUROsemide 10 mg/mL SDV 2mL 20 MG IV (14:00)
== END 2021-09-28 09:09 | disposition home or self-care (01) ==
LOC: ONCMED 09:15
PROVIDERS: PCP Family Medicine; Visit Provider Internal Medicine Medical Oncology
DX: D50.9 Iron deficiency anemia, unspecified (principal); K74.60 Unspecified cirrhosis of liver; R18.8 Other ascites; I10 Essential (primary) hypertension; E11.9 Type 2 diabetes mellitus without complications; K21.9 Gastro-esophageal reflux disease without esophagitis; E03.9 Hypothyroidism, unspecified; G47.33 Obstructive sleep apnea (adult) (pediatric); K76.6 Portal hypertension; Z79.899 Other long term (current) drug therapy
CPT/HCPCS: 83540; 83550; 85025; 86850; 86900; 86920; J1940; J7050; P9016

== ENCOUNTER 2021-10-02 11:14 | Day surgery (SDC) | payer MEDICARE, OTHER, SELFPAY ==
[2021-09-29 09:29] VITALS: BMI 25.0
--- NOTE | 2021-10-02 11:20 | US_ITS ---
WS: [id number] ULTRASOUND-GUIDED THERAPEUTIC PARACENTESIS Procedure, risks, and complications have been explained to the patient. Consent is obtained. Utilizing aseptic technique and 1% buffered lidocaine, a small dermatome was made through which a 5 F rench Yueh catheter was inserted. Approximately 7000 ml of clear yellow peritoneal fluid was obtained without difficulty. No complications encountered. US/US paracentesis abd w [id number] IMPRESSION: Uncomplicated paracentesis yielding 7000 ml of peritoneal fluid.
[2021-10-02 11:34] VITALS: BP 124/75; PULSE 83; RESP 15; TEMP 36.4; O2SAT 99
== END 2021-10-02 13:50 | disposition home or self-care (01) ==
PROVIDERS: Radiology Diagnostic Radiology; PCP Family Medicine; Visit Provider Internal Medicine Gastroenterology
PROC: (CPT 49082; principal; 2021-10-02 12:00)
DX: R18.8 Other ascites (principal)
CPT/HCPCS: 49083; P9047

== ENCOUNTER 2021-10-04 12:41 | Outpatient (CLI) | payer MEDICARE, OTHER, SELFPAY ==
[2021-10-04] MEDS: ferric carboxy (IVPB) 750 MG in sodium chloride 0.9% (100 ml) 100 ML 460 MG IV (13:30)
[2021-10-04 13:35] LABS: Basophils % 0.2 %; Eosinophils % 0.2 %; Hematocrit 28.1 % (42.0-52.0); Hemoglobin 9.1 g/dL (11.7-16.6); Lymphocytes # 0.3 10^3/uL (0.8-4.8); Mean Corpuscular HGB Conc 32.4 g/dL (30.0-36.0); Mean Corpuscular Volume 95.6 fl (80-94); Mean Platelet Volume 9.9 fL (7.4-10.4); Monocytes # 0.7 10^3/uL (0.2-0.9); Neutrophils # 6.98 10^3/uL (1.8-7.7); Neutrophils % 86.2 %; Nucleated Red Blood Cells % 0 %; Platelet Count 142 10^3/cmm (130-400); Red Blood Count 2.94 10^6/uL (4.1-5.3); Red Cell Distribution Width 18.6 % (12.1-15.1); White Blood Count 8.1 10^3/uL (4.0-10.0)
== END 2021-10-04 12:42 | disposition home or self-care (01) ==
LOC: ONCMED 12:43
PROVIDERS: PCP Family Medicine; Visit Provider Internal Medicine Medical Oncology
DX: D50.9 Iron deficiency anemia, unspecified (principal)
CPT/HCPCS: 85025; 86850; 86900; 96365; J1439

== ENCOUNTER 2021-10-11 13:09 | Outpatient (CLI) | payer MEDICARE, OTHER, SELFPAY ==
[2021-10-11] MEDS: ferric carboxy (IVPB) 750 MG in sodium chloride 0.9% (100 ml) 100 ML 460 MG IV (14:13)
== END 2021-10-11 13:10 | disposition home or self-care (01) ==
LOC: ONCMED 13:11
PROVIDERS: PCP Family Medicine; Visit Provider Internal Medicine Medical Oncology
DX: D64.9 Anemia, unspecified (principal)
CPT/HCPCS: 96365; J1439

== ENCOUNTER 2021-11-13 06:00 | Outpatient (RCR) | payer MEDICARE, OTHER, SELFPAY | END 2021-12-12 23:59 | disposition home or self-care (01) | LOC: SPT 06:00 | PROVIDERS: PCP Family Medicine; Referring Provider Physical Medicine & Rehabilitation; Visit Provider Physical Medicine & Rehabilitation | DX: R53.81 Other malaise (principal); K72.90 Hepatic failure, unspecified without coma | CPT/HCPCS: 97110; 97150; 97162 ==

== ENCOUNTER 2021-11-22 13:18 | Oncology outpatient (recurring) (ONCR) | payer MEDICARE, OTHER, SELFPAY ==
[2021-11-22 13:50] LABS: Basophils # 0.1 10^3/uL (0.0-0.1); Basophils % 0.9 %; Eosinophils # 0.2 10^3/uL (0.0-0.8); Eosinophils % 2.8 %; Hematocrit 33.9 % (42.0-52.0); Hemoglobin 11.2 g/dL (11.7-16.6); Lymphocytes # 0.4 10^3/uL (0.8-4.8); Lymphocytes % 7.2 %; Mean Corpuscular Volume 93.9 fl (80-94); Mean Platelet Volume 9.4 fL (7.4-10.4); Monocytes % 16.8 %; Neutrophils # 4.07 10^3/uL (1.8-7.7); Neutrophils % 71.9 %; Nucleated Red Blood Cells % 0 %; Platelet Count 156 10^3/cmm (130-400); Red Blood Count 3.61 10^6/uL (4.1-5.3); Red Cell Distribution Width 15.8 % (12.1-15.1); White Blood Count 5.7 10^3/uL (4.0-10.0)
[2021-11-22 14:03] LABS: Alanine Aminotransferase 22 U/L (0-41); Albumin Level 2.6 g/dL (3.5-5.2); Alkaline Phosphatase 90 IU/L (40-130); Anion Gap 15.5 (5-19); Aspartate Amino Transferase 43 U/L (0-40); Blood Urea Nitrogen 11 mg/dL (8-23); Calcium 7.9 mg/dL (8.5-10.5); Carbon Dioxide 20 mmol/L (22-29); Chloride 100 mmol/L (98-107); Ferritin 853 ng/mL (30-400); Globulin 4.1 g/dL (1.3-4.6); Glomerular Filtration Rate 113.2 mL/min (90-130); Glucose 140 mg/dL (65-115); Iron 24 ug/dL (59-158); Osmolality Calculated 276 mOsm/kg (285-295); Percent Saturation 21.2 % (20-50); Potassium 3.5 mmol/L (3.5-5.1); Sodium 132 mmol/L (136-145); Total Bilirubin 1.2 mg/dL (0.15-1.2); Total Iron Binding Capacity 113 mcg/dl; Total Protein 6.7 g/dL (6.6-8.7); Unsaturated Iron Binding 89 ug/dL (112-347)
== END 2021-12-12 23:59 | disposition home or self-care (01) ==
LOC: ONCMED 13:19
PROVIDERS: PCP Family Medicine; Referring Provider Registered Nurse; Visit Provider Internal Medicine Medical Oncology
DX: D50.0 Iron deficiency anemia secondary to blood loss (chronic) (principal); K92.2 Gastrointestinal hemorrhage, unspecified; K74.60 Unspecified cirrhosis of liver; K76.6 Portal hypertension
CPT/HCPCS: 80053; 82728; 83540; 83550; 85025; 99214; 99999

== ENCOUNTER 2021-11-27 10:48 | Day surgery (SDC) | payer MEDICARE, OTHER, SELFPAY ==
[2021-11-27 11:04] VITALS: BP 133/80; PULSE 105; RESP 20; TEMP 36.1; O2SAT 94; BMI 27.1
--- NOTE | 2021-11-27 11:13 | US_ITS ---
NOTE: Report was unsigned for reason: Ordering provider was edited. Original Signature date and time was: 11/27/21 @ 4458 WS: [id number] ULTRASOUND-GUIDED THERAPEUTIC PARACENTESIS Procedure, risks, and complications have been explained to the patient. Consent is obtained. Utilizing aseptic technique and 1% buffered lidocaine, a small dermatome was made through which a 5 Qatari Yueh catheter was inserted. Approximately 7000 ml of clear yellow peritoneal fluid was obtained without difficulty. No complications encountered. [facility] US/US paracentesis abd w [id number] IMPRESSION: Uncomplicated paracentesis yielding 7000 ml of peritoneal fluid.
--- NOTE | 2021-11-27 11:33 | SUR.OPER ---
8ML of lido 1% injected into Lt abd by Dr Riojas
[2021-11-27 13:10] VITALS: BP 119/71; PULSE 91; RESP 18; O2SAT 92
== END 2021-11-28 14:56 | disposition home or self-care (01) ==
LOC: GILAB 10:53
PROVIDERS: Radiology Diagnostic Radiology; PCP Family Medicine; Visit Provider Internal Medicine Gastroenterology
PROC: (CPT 49082; principal; 2021-11-27 12:00)
DX: R18.8 Other ascites (principal)
CPT/HCPCS: 49083; 96365; P9047

== ENCOUNTER 2021-12-13 06:00 | Outpatient (RCR) | payer MEDICARE, OTHER, SELFPAY | END 2022-01-11 23:59 | disposition home or self-care (01) | LOC: SPT 06:00 | PROVIDERS: PCP Family Medicine; Referring Provider Physical Medicine & Rehabilitation; Visit Provider Physical Medicine & Rehabilitation | DX: R54 Age-related physical debility (principal); M62.81 Muscle weakness (generalized); K72.00 Acute and subacute hepatic failure without coma | CPT/HCPCS: 97110 ==

== ENCOUNTER 2021-12-13 09:39 | Day surgery (SDC) | payer MEDICARE, OTHER, SELFPAY ==
[2021-12-08 10:30] VITALS: BMI 25.7
--- NOTE | 2021-12-13 09:50 | US_ITS ---
WS: [id number] ULTRASOUND-GUIDED PARACENTESIS CLINICAL INFORMATION: ascities COMPARISON: None. Procedure Informed consent: The risks, benefits, and alternatives of the procedure were discussed with the sajan ent. Verbal and written consent was obtained. Timeout: A timeout was performed to confirm the correct patient, procedure, and site. Preparation: A suitable skin site was identified. The patient was prepped and draped in usual sterile fashion. Lidocaine 1% was used for local anesthesia. Catheter: 4 Bulgarian One-step Yueh catheter. Side: LEFT Lower quadrant. Fluid Volume: 4300 ml Color: Clear yellow DISPOSITION: 50 cc sent for requested diagnostic tests. Complications: None. Patient disposition: Discharged from the department in stable condition. US/US paracentesis abd w [id number] IMPRESSION: Uncomplicated ultrasound-guided paracentesis. Removal of 4300 cc
[2021-12-13 10:00] VITALS: BP 126/76; PULSE 85; RESP 16; TEMP 36.3; O2SAT 94
[2021-12-13] MEDS: lidocaine 1% INJ 20 mL XX (10:38)
[2021-12-13 11:06] LABS: Appearance, Peritoneal Fluid Hazy (Clear); Color, Peritoneal Fluid Pale Yellow (Pale Yellow); Pathology Referral Yes
[2021-12-13 11:11] LABS: Mononuclear #, Pertinoneal Fl 0.049 10^3/uL; Polynuclear # Cells, Perit 0.001 10^3/uL
[2021-12-13 11:28] LABS: RBC Pertioneal Fluid 0 10^3/uL; WBC Peritoneal Fluid 50 /uL
[2021-12-13] MEDS: albumin 37.5 GM/150 ML VIAL IV (11:38)
== END 2021-12-13 13:37 | disposition home or self-care (01) ==
LOC: GILAB 09:41
PROVIDERS: Internal Medicine Gastroenterology; Radiology Neuroradiology; PCP Family Medicine; Visit Provider Family Medicine
PROC: (CPT 49082; principal; 2021-12-13 10:30)
DX: R18.8 Other ascites (principal)
CPT/HCPCS: 49083; 80503; 87070; 87075; 87205; 89050; P9047

== ENCOUNTER 2021-12-27 11:40 | Day surgery (SDC) | payer MEDICARE, OTHER, SELFPAY ==
--- NOTE | 2021-12-27 11:54 | US_ITS ---
WS: [id number] INDICATION: Paracentesis TECHNIQUE: Ultrasound 4 quadrant FINDINGS: Mild abdominal ascites. Insufficient fluid for paracentesis. US/US abdomen lmt fluid [id number] IMPRESSION: Mild ascites
--- NOTE | 2021-12-27 12:14 | PC.NURSE ---
5291 The patient didn't have enough fluid to drain per US and Radiologist. I made an appointment for next week incase the patient got flores and needed drained.
== END 2021-12-27 12:15 | disposition home or self-care (01) ==
LOC: GILAB 11:43
PROVIDERS: Radiology Neuroradiology; PCP Family Medicine; Visit Provider Internal Medicine Gastroenterology
DX: R18.8 Other ascites (principal)
CPT/HCPCS: 76705

== ENCOUNTER → 2022-01-10 10:33 | Day surgery (SDC) | payer MEDICARE, OTHER, SELFPAY ==
[2022-01-08 15:50] VITALS: BMI 23.1
--- NOTE | 2022-01-10 | US_ITS ---
WS: [id number] ULTRASOUND-GUIDED PARACENTESIS CLINICAL INFORMATION: ascites COMPARISON: None. Procedure Informed consent: The risks, benefits, and alternatives of the procedure were discussed with the sajan ent. Verbal and written consent was obtained. Timeout: A timeout was performed to confirm the correct patient, procedure, and site. Preparation: A suitable skin site was identified. The patient was prepped and draped in usual sterile fashion. Lidocaine 1% was used for local anesthesia. Catheter: 4 American One-step Yueh catheter. Side: LEFT Lower quadrant. Fluid Volume: 2600 ml Color: Cloudy yellow DISPOSITION: Discarded safely. Complications: None. Patient disposition: Discharged from the department in stable condition. US/US paracentesis abd w [id number] IMPRESSION: Uncomplicated ultrasound-guided paracentesis LEFT lower quadrant. Removal of 2600 cc cloudy yellow fluid
--- NOTE | 2022-01-10 10:54 | US_ITS ---
WS: [id number] ULTRASOUND-GUIDED PARACENTESIS CLINICAL INFORMATION: ascites COMPARISON: None. Procedure Informed consent: The risks, benefits, and alternatives of the procedure were discussed with the sajan ent. Verbal and written consent was obtained. Timeout: A timeout was performed to confirm the correct patient, procedure, and site. Preparation: A suitable skin site was identified. The patient was prepped and draped in usual sterile fashion. Lidocaine 1% was used for local anesthesia. Catheter: 4 Macedonian One-step Yueh catheter. Side: LEFT Lower quadrant. Fluid Volume: 2600 ml Color: Cloudy yellow DISPOSITION: Discarded safely. Complications: None. Patient disposition: Discharged from the department in stable condition.
[2022-01-10 11:21] VITALS: BP 128/77; PULSE 78; RESP 20; TEMP 36.8; O2SAT 96
[2022-01-10 12:08] LABS: Mononuclear #, Pertinoneal Fl 0.037 10^3/uL; Polynuclear # Cells, Perit 0.005 10^3/uL
[2022-01-10 12:12] VITALS: BP 124/73; PULSE 79; RESP 18; O2SAT 94
[2022-01-10 12:23] LABS: Appearance, Peritoneal Fluid Cloudy (Clear); Color, Peritoneal Fluid Yellow (Pale Yellow); WBC Peritoneal Fluid 42 /uL
[2022-01-10 12:24] LABS: RBC Pertioneal Fluid 0 10^3/uL
[2022-01-10 12:49] VITALS: BP 110/58; PULSE 76; RESP 18; O2SAT 96
[2022-01-10 20:40] LABS: Cyto Order Verification No Order
== END ==
PROVIDERS: Radiology Neuroradiology; PCP Family Medicine; Visit Provider Family Medicine
PROC: 0W9G3ZZ Drainage of Peritoneal Cavity, Percutaneous Approach (ICD-10-PCS; principal; 2022-01-10 12:00)
DX: R18.8 Other ascites (principal)
CPT/HCPCS: 49083; 87070; 87075; 87205; 89050; 96365; P9047

== ENCOUNTER 2022-01-12 06:00 | Outpatient (RCR) | payer MEDICARE, OTHER, SELFPAY | END 2022-02-11 23:59 | disposition home or self-care (01) | LOC: SPT 06:00 | PROVIDERS: PCP Family Medicine; Referring Provider Physical Medicine & Rehabilitation; Visit Provider Physical Medicine & Rehabilitation | DX: R54 Age-related physical debility (principal); M62.81 Muscle weakness (generalized); K72.10 Chronic hepatic failure without coma | CPT/HCPCS: 97110 ==

== ENCOUNTER 2022-02-12 06:00 | Outpatient (RCR) | payer MEDICARE, OTHER, SELFPAY | END 2022-03-06 23:59 | disposition home or self-care (01) | LOC: SPT 06:00 | PROVIDERS: PCP Family Medicine; Referring Provider Physical Medicine & Rehabilitation; Visit Provider Physical Medicine & Rehabilitation | DX: R54 Age-related physical debility (principal); M62.81 Muscle weakness (generalized); K72.00 Acute and subacute hepatic failure without coma | CPT/HCPCS: 97110 ==

== ENCOUNTER 2022-03-06 14:30 | Oncology outpatient (recurring) (ONCR) | payer MEDICARE, OTHER, SELFPAY ==
[2022-02-14] VITALS (9 sets, daily range): BP systolic 101–106; BP diastolic 54–66; PULSE 60–74; RESP 14–18; TEMP 36.1–36.7; O2SAT 98–99
[2022-02-14 08:28] LABS: Basophils # 0.1 10^3/uL (0.0-0.1); Basophils % 1.4 %; Eosinophils # 0.2 10^3/uL (0.0-0.8); Eosinophils % 4.3 %; Hematocrit 21.1 % (42.0-52.0); Lymphocytes # 0.7 10^3/uL (0.8-4.8); Lymphocytes % 17.1 %; Mean Corpuscular HGB Conc 29.9 g/dL (30.0-36.0); Mean Corpuscular Hemoglobin 26.9 pg (28.0-34.0); Mean Corpuscular Volume 90.2 fl (80-94); Mean Platelet Volume 10.3 fL (7.4-10.4); Monocytes # 0.6 10^3/uL (0.2-0.9); Neutrophils # 2.59 10^3/uL (1.8-7.7); Neutrophils % 61.7 %; Nucleated Red Blood Cells % 0 %; Platelet Count 159 10^3/cmm (130-400); Red Blood Count 2.34 10^6/uL (4.1-5.3); Red Cell Distribution Width 17.2 % (12.1-15.1); White Blood Count 4.2 10^3/uL (4.0-10.0)
[2022-02-14 08:36] LABS: Hemoglobin 6.3 g/dL (11.7-16.6)
[2022-02-14] MEDS: acetaminophen 325 mg Tablet 650 MG PO (10:17)
[2022-02-14] MEDS: diphenhydrAMINE 25 mg Capsule PO (10:17)
[2022-02-14] MEDS: sodium chloride 0.9% 100 mL Bag 250 ML IV (10:19)
[2022-02-14] MEDS: FUROsemide 10 mg/mL SDV 2mL 20 MG IVP (12:18)
[2022-02-27] MEDS: sodium chloride 0.9% 250 ML 75 ML IV (14:51)
[2022-02-27] MEDS: ferric carboxy (IVPB) 750 MG in sodium chloride 0.9% (100 ml) 100 ML 345 MG IV (14:54)
[2022-02-27 15:30] VITALS: BP 102/57; PULSE 78; RESP 18; TEMP 37; O2SAT 95
[2022-03-06] MEDS: ferric carboxy (IVPB) 750 MG in sodium chloride 0.9% (100 ml) 100 ML 345 MG IV (14:55)
[2022-03-06 15:30] VITALS: BP 104/54; PULSE 76; RESP 18; TEMP 36.8; O2SAT 98
== END 2022-03-14 23:59 | disposition home or self-care (01) ==
PROVIDERS: PCP Family Medicine; Referring Provider Registered Nurse; Visit Provider Internal Medicine Medical Oncology
DX: D50.0 Iron deficiency anemia secondary to blood loss (chronic) (principal); D69.6 Thrombocytopenia, unspecified; Z79.899 Other long term (current) drug therapy
CPT/HCPCS: 36430; 85025; 86850; 86900; 86920; 96365; 96375; J1439; J1940; J7050; P9016

== ENCOUNTER 2022-10-03 06:00 | Outpatient (RCR) | payer MEDICARE, OTHER, SELFPAY | END 2022-10-12 23:59 | disposition home or self-care (01) | LOC: SPT 06:00 | PROVIDERS: Visit Provider Family Medicine | DX: M25.511 Pain in right shoulder (principal); M25.512 Pain in left shoulder; G89.29 Other chronic pain | CPT/HCPCS: 97110; 97162 ==

== ENCOUNTER 2022-10-13 06:00 | Outpatient (RCR) | payer MEDICARE, OTHER, SELFPAY | END 2022-11-11 23:59 | disposition home or self-care (01) | LOC: SPT 06:00 | PROVIDERS: Visit Provider Family Medicine | DX: G89.29 Other chronic pain (principal); M25.511 Pain in right shoulder; M25.512 Pain in left shoulder | CPT/HCPCS: 97110 ==

== ENCOUNTER 2022-11-12 06:00 | Outpatient (RCR) | payer MEDICARE, OTHER, SELFPAY | END 2022-12-12 23:59 | disposition home or self-care (01) | LOC: SPT 06:00 | PROVIDERS: Visit Provider Family Medicine | DX: M25.511 Pain in right shoulder (principal); M25.512 Pain in left shoulder; G89.29 Other chronic pain | CPT/HCPCS: 97110 ==

== ENCOUNTER 2023-01-07 10:49 | Oncology outpatient (recurring) (ONCR) | payer MEDICARE, OTHER, SELFPAY ==
[2022-12-27 14:11] VITALS: BP 111/62; PULSE 50; RESP 18; TEMP 36.9; O2SAT 93
[2022-12-27 14:29] LABS: Basophils # 0.1 10^3/uL (0.0-0.1); Basophils % 1.3 %; Eosinophils # 0.2 10^3/uL (0.0-0.8); Eosinophils % 4.5 %; Hematocrit 28.6 % (42.0-52.0); Hemoglobin 8.5 g/dL (11.7-16.6); Lymphocytes # 0.9 10^3/uL (0.8-4.8); Lymphocytes % 18.6 %; Mean Corpuscular HGB Conc 29.7 g/dL (30.0-36.0); Mean Corpuscular Hemoglobin 34.1 pg (28.0-34.0); Mean Corpuscular Volume 114.9 fl (80-94); Mean Platelet Volume 9.5 fL (7.4-10.4); Monocytes # 0.8 10^3/uL (0.2-0.9); Monocytes % 16.4 %; Neutrophils # 2.73 10^3/uL (1.8-7.7); Nucleated Red Blood Cells % 0 %; Platelet Count 107 10^3/cmm (130-400); Red Blood Count 2.49 10^6/uL (4.1-5.3); Red Cell Distribution Width 15.9 % (12.1-15.1); White Blood Count 4.6 10^3/uL (4.0-10.0)
[2022-12-27 15:07] LABS: Alanine Aminotransferase 31 U/L (0-41); Alkaline Phosphatase 69 U/L (40-130); Anion Gap 14.6 (5-19); Aspartate Amino Transferase 38 U/L (0-40); Blood Urea Nitrogen 19 mg/dL (8-23); Calcium 8.4 mg/dL (8.5-10.5); Carbon Dioxide 18 mmol/L (22-29); Chloride 109 mmol/L (98-107); Ferritin 79 ng/mL (30-400); Globulin 2.2 g/dL (1.3-4.6); Glomerular Filtration Rate 60.6 mL/min (90-130); Glucose 82 mg/dL (65-115); Iron 55 ug/dL (59-158); Osmolality Calculated 285 mOsm/kg (285-295); Percent Saturation 20.1 % (20-50); Potassium 4.6 mmol/L (3.5-5.1); Sodium 137 mmol/L (136-145); Total Iron Binding Capacity 273 mcg/dl; Total Protein 5.2 g/dL (6.6-8.7); Unsaturated Iron Binding 218 ug/dL (112-347)
[2022-12-28] VITALS (8 sets, daily range): BP systolic 94–106; BP diastolic 54–65; PULSE 55–76; RESP 16; TEMP 36.1–36.6; O2SAT 97–99
[2022-12-28] MEDS: diphenhydrAMINE 25 mg Capsule PO (10:15)
[2022-12-28] MEDS: sodium chloride 0.9% 250 mL Bag IV (10:15)
[2022-12-28] MEDS: acetaminophen 325 mg Tablet 650 MG PO (10:15)
[2022-12-28] MEDS: FUROsemide 10 mg/mL SDV 2mL 20 MG IVP (12:30)
[2023-01-03 14:57] VITALS: BP 126/70; PULSE 85; RESP 18; TEMP 36.2; O2SAT 100
[2023-01-03 15:10] LABS: Basophils # 0.1 10^3/uL (0.0-0.1); Basophils % 1.4 %; Eosinophils # 0.2 10^3/uL (0.0-0.8); Eosinophils % 3.7 %; Hematocrit 26.3 % (42.0-52.0); Hemoglobin 8.3 g/dL (11.7-16.6); Lymphocytes # 0.8 10^3/uL (0.8-4.8); Lymphocytes % 16.6 %; Mean Corpuscular HGB Conc 31.6 g/dL (30.0-36.0); Mean Corpuscular Hemoglobin 32.2 pg (28.0-34.0); Mean Corpuscular Volume 101.9 fl (80-94); Mean Platelet Volume 10.1 fL (7.4-10.4); Monocytes # 0.9 10^3/uL (0.2-0.9); Monocytes % 17.7 %; Neutrophils # 2.94 10^3/uL (1.8-7.7); Neutrophils % 60.4 %; Nucleated Red Blood Cells % 0 %; Platelet Count 100 10^3/cmm (130-400); Red Blood Count 2.58 10^6/uL (4.1-5.3); Red Cell Distribution Width 17.9 % (12.1-15.1); White Blood Count 4.9 10^3/uL (4.0-10.0)
[2023-01-03 15:25] LABS: Ferritin 68 ng/mL (30-400); Iron 91 ug/dL (59-158); Percent Saturation 34.4 % (20-50); Total Iron Binding Capacity 264 mcg/dl; Unsaturated Iron Binding 173 ug/dL (112-347)
[2023-01-07] VITALS (7 sets, daily range): BP systolic 93–124; BP diastolic 43–69; PULSE 72–80; RESP 18; TEMP 36.5–36.6; O2SAT 96–99
[2023-01-07 09:49] LABS: Basophils # 0.1 10^3/uL (0.0-0.1); Basophils % 1.4 %; Eosinophils # 0.2 10^3/uL (0.0-0.8); Eosinophils % 4.4 %; Hematocrit 26.6 % (42.0-52.0); Hemoglobin 8.4 g/dL (11.7-16.6); Lymphocytes # 0.7 10^3/uL (0.8-4.8); Lymphocytes % 16.4 %; Mean Corpuscular HGB Conc 31.6 g/dL (30.0-36.0); Mean Corpuscular Hemoglobin 32.7 pg (28.0-34.0); Mean Corpuscular Volume 103.5 fl (80-94); Monocytes # 0.6 10^3/uL (0.2-0.9); Monocytes % 13.8 %; Neutrophils # 2.72 10^3/uL (1.8-7.7); Neutrophils % 63.5 %; Nucleated Red Blood Cells % 0 %; Platelet Count 123 10^3/cmm (130-400); Red Blood Count 2.57 10^6/uL (4.1-5.3); Red Cell Distribution Width 17.7 % (12.1-15.1); White Blood Count 4.3 10^3/uL (4.0-10.0)
[2023-01-07] MEDS: acetaminophen 325 mg Tablet 650 MG PO (12:00)
[2023-01-07] MEDS: diphenhydrAMINE 25 mg Capsule PO (12:00)
[2023-01-07] MEDS: sodium chloride 0.9% 250 mL Bag IV (12:04)
== END 2023-01-11 23:59 | disposition home or self-care (01) ==
PROVIDERS: Internal Medicine Medical Oncology; Visit Provider Internal Medicine Medical Oncology
DX: D50.0 Iron deficiency anemia secondary to blood loss (chronic) (principal)
CPT/HCPCS: 96374 ×2; 96375; 36415; 36430; 80053; 82728; 83540; 83550; 85025; 86850; 86900; 86920; 99214; J1940; J7050; P9016; P9040

== ENCOUNTER 2023-02-07 09:00 | Oncology outpatient (recurring) (ONCR) | payer MEDICARE, OTHER, SELFPAY ==
[2023-01-31] VITALS (12 sets, daily range): BP systolic 87–120; BP diastolic 48–72; PULSE 72–84; RESP 16–18; TEMP 36.3–36.8; O2SAT 96–100
[2023-01-31 10:29] LABS: Basophils # 0.1 10^3/uL (0.0-0.1); Basophils % 1.3 %; Eosinophils # 0.3 10^3/uL (0.0-0.8); Eosinophils % 6.8 %; Hematocrit 22.6 % (42.0-52.0); Hemoglobin 6.8 g/dL (11.7-16.6); Lymphocytes # 0.6 10^3/uL (0.8-4.8); Lymphocytes % 16.8 %; Mean Corpuscular HGB Conc 30.1 g/dL (30.0-36.0); Mean Corpuscular Hemoglobin 29.6 pg (28.0-34.0); Mean Corpuscular Volume 98.3 fl (80-94); Mean Platelet Volume 10.5 fL (7.4-10.4); Monocytes # 0.5 10^3/uL (0.2-0.9); Monocytes % 11.8 %; Neutrophils # 2.39 10^3/uL (1.8-7.7); Neutrophils % 62.8 %; Nucleated Red Blood Cells % 0 %; Platelet Count 127 10^3/cmm (130-400); White Blood Count 3.8 10^3/uL (4.0-10.0)
[2023-01-31 10:41] LABS: Ferritin 49 ng/mL (30-400); Iron 73 ug/dL (59-158); Percent Saturation 25.2 % (20-50); Total Iron Binding Capacity 289 mcg/dl; Unsaturated Iron Binding 216 ug/dL (112-347)
[2023-01-31] MEDS: diphenhydrAMINE 25 mg Capsule PO (11:43)
[2023-01-31] MEDS: acetaminophen 325 mg Tablet 650 MG PO (11:43)
[2023-01-31] MEDS: sodium chloride 0.9% 250 mL Bag IV (11:44)
[2023-02-07 09:08] VITALS: BP 110/67; PULSE 70; RESP 18; TEMP 36.6; O2SAT 99
[2023-02-07 09:18] LABS: Basophils # 0.1 10^3/uL (0.0-0.1); Basophils % 2.2 %; Eosinophils # 0.3 10^3/uL (0.0-0.8); Eosinophils % 7.2 %; Hematocrit 29.1 % (42.0-52.0); Hemoglobin 8.9 g/dL (11.7-16.6); Lymphocytes # 0.8 10^3/uL (0.8-4.8); Mean Corpuscular HGB Conc 30.6 g/dL (30.0-36.0); Mean Corpuscular Hemoglobin 30.1 pg (28.0-34.0); Mean Corpuscular Volume 98.3 fl (80-94); Mean Platelet Volume 9.7 fL (7.4-10.4); Monocytes # 0.6 10^3/uL (0.2-0.9); Monocytes % 13.7 %; Neutrophils # 2.61 10^3/uL (1.8-7.7); Neutrophils % 58.7 %; Nucleated Red Blood Cells % 0 %; Platelet Count 120 10^3/cmm (130-400); Red Blood Count 2.96 10^6/uL (4.1-5.3); Red Cell Distribution Width 19.7 % (12.1-15.1); White Blood Count 4.5 10^3/uL (4.0-10.0)
== END 2023-02-11 23:59 | disposition home or self-care (01) ==
PROVIDERS: Visit Provider Internal Medicine Medical Oncology
DX: D50.0 Iron deficiency anemia secondary to blood loss (chronic) (principal)
CPT/HCPCS: 36430; 82728; 83540; 83550; 85025; 86850; 86900; 86920; J7050; P9040

== ENCOUNTER 2023-03-11 10:37 | Oncology outpatient (recurring) (ONCR) | payer MEDICARE, OTHER, SELFPAY ==
[2023-02-14 11:12] VITALS: BP 101/64; PULSE 81; TEMP 36.3; O2SAT 96
[2023-02-14 11:37] LABS: Basophils # 0.1 10^3/uL (0.0-0.1); Basophils % 1.6 %; Eosinophils # 0.2 10^3/uL (0.0-0.8); Eosinophils % 3.9 %; Hematocrit 26.5 % (42.0-52.0); Hemoglobin 8.2 g/dL (11.7-16.6); Lymphocytes # 0.6 10^3/uL (0.8-4.8); Lymphocytes % 11.5 %; Mean Corpuscular HGB Conc 30.9 g/dL (30.0-36.0); Mean Corpuscular Hemoglobin 30.8 pg (28.0-34.0); Mean Corpuscular Volume 99.6 fl (80-94); Mean Platelet Volume 11.4 fL (7.4-10.4); Monocytes # 0.5 10^3/uL (0.2-0.9); Monocytes % 10.5 %; Neutrophils % 72.1 %; Nucleated Red Blood Cells % 0 %; Platelet Count 117 10^3/cmm (130-400); Red Blood Count 2.66 10^6/uL (4.1-5.3); Red Cell Distribution Width 18.8 % (12.1-15.1); White Blood Count 5.1 10^3/uL (4.0-10.0)
[2023-02-14 13:06] LABS: Alanine Aminotransferase 27 U/L (0-41); Albumin Level 2.7 g/dL (3.5-5.2); Alkaline Phosphatase 73 U/L (40-130); Anion Gap 16.2 (5-19); Aspartate Amino Transferase 34 U/L (0-40); Blood Urea Nitrogen 26 mg/dL (8-23); Calcium 8.8 mg/dL (8.5-10.5); Carbon Dioxide 18 mmol/L (22-29); Chloride 100 mmol/L (98-107); Ferritin 57 ng/mL (30-400); Globulin 2.4 g/dL (1.3-4.6); Glomerular Filtration Rate 66.8 mL/min (90-130); Glucose 310 mg/dL (65-115); Iron 35 ug/dL (59-158); Osmolality Calculated 285 mOsm/kg (285-295); Percent Saturation 10.6 % (20-50); Potassium 5.2 mmol/L (3.5-5.1); Sodium 129 mmol/L (136-145); Total Iron Binding Capacity 329 mcg/dl; Total Protein 5.1 g/dL (6.6-8.7); Unsaturated Iron Binding 294 ug/dL (112-347)
[2023-02-18] VITALS (8 sets, daily range): BP systolic 94–119; BP diastolic 49–68; PULSE 64–80; RESP 16–18; TEMP 36.1–36.9; O2SAT 96–98
[2023-02-18] MEDS: ferric carboxy (IVPB) 750 MG in sodium chloride 0.9% (100 ml) 100 ML 345 MG IV (10:09)
[2023-02-18 11:00] LABS: Basophils # 0.1 10^3/uL (0.0-0.1); Basophils % 1.6 %; Eosinophils # 0.3 10^3/uL (0.0-0.8); Eosinophils % 5.2 %; Hematocrit 24.1 % (42.0-52.0); Hemoglobin 7.4 g/dL (11.7-16.6); Lymphocytes # 0.7 10^3/uL (0.8-4.8); Lymphocytes % 13.7 %; Mean Corpuscular HGB Conc 30.7 g/dL (30.0-36.0); Mean Corpuscular Hemoglobin 30.7 pg (28.0-34.0); Mean Platelet Volume 10.7 fL (7.4-10.4); Monocytes # 0.8 10^3/uL (0.2-0.9); Monocytes % 15.3 %; Neutrophils # 3.16 10^3/uL (1.8-7.7); Neutrophils % 63.8 %; Nucleated Red Blood Cells % 0 %; Platelet Count 135 10^3/cmm (130-400); Red Blood Count 2.41 10^6/uL (4.1-5.3)
[2023-02-18] MEDS: sodium chloride 0.9% 250 mL Bag IV (12:40)
[2023-02-18] MEDS: acetaminophen 325 mg Tablet 650 MG PO (13:04)
[2023-02-18] MEDS: diphenhydrAMINE 25 mg Capsule PO (13:04)
[2023-02-18] MEDS: FUROsemide 10 mg/mL SDV 2mL 20 MG IVP (14:51)
[2023-02-25 08:35] VITALS: BP 145/66; PULSE 78; RESP 17; TEMP 36.7; O2SAT 95; BMI 30.6
[2023-02-25 08:47] LABS: Basophils # 0.1 10^3/uL (0.0-0.1); Basophils % 1.8 %; Eosinophils # 0.2 10^3/uL (0.0-0.8); Eosinophils % 5.2 %; Hematocrit 31.4 % (42.0-52.0); Hemoglobin 9.9 g/dL (11.7-16.6); Lymphocytes # 0.8 10^3/uL (0.8-4.8); Mean Corpuscular HGB Conc 31.5 g/dL (30.0-36.0); Mean Corpuscular Hemoglobin 31.5 pg (28.0-34.0); Mean Platelet Volume 9.5 fL (7.4-10.4); Monocytes # 0.6 10^3/uL (0.2-0.9); Monocytes % 12.6 %; Neutrophils # 2.81 10^3/uL (1.8-7.7); Nucleated Red Blood Cells % 0 %; Platelet Count 119 10^3/cmm (130-400); Red Blood Count 3.14 10^6/uL (4.1-5.3); White Blood Count 4.5 10^3/uL (4.0-10.0)
[2023-02-28 12:50] VITALS: BP 101/58; PULSE 77; RESP 16; TEMP 36.7; O2SAT 99
[2023-02-28 12:56] VITALS: BMI 31.7
[2023-02-28] MEDS: sodium chloride 0.9% 250 ML 75 ML IV (12:59)
[2023-02-28] MEDS: ferric carboxy (IVPB) 750 MG in sodium chloride 0.9% (100 ml) 100 ML 345 MG IV (12:59)
[2023-02-28 14:02] VITALS: BP 116/72; PULSE 78; RESP 18; TEMP 36.6; O2SAT 94
[2023-03-04 10:41] VITALS: BMI 30.5
[2023-03-04 10:42] VITALS: BP 131/76; PULSE 80; RESP 18; TEMP 36.7; O2SAT 95
[2023-03-04 11:05] LABS: Basophils # 0.1 10^3/uL (0.0-0.1); Basophils % 1.7 %; Eosinophils # 0.2 10^3/uL (0.0-0.8); Eosinophils % 5.1 %; Hematocrit 30.8 % (42.0-52.0); Hemoglobin 9.5 g/dL (11.7-16.6); Lymphocytes # 0.6 10^3/uL (0.8-4.8); Lymphocytes % 14.6 %; Mean Corpuscular HGB Conc 30.8 g/dL (30.0-36.0); Mean Corpuscular Hemoglobin 31.8 pg (28.0-34.0); Mean Platelet Volume 10.4 fL (7.4-10.4); Monocytes # 0.5 10^3/uL (0.2-0.9); Monocytes % 13.1 %; Neutrophils # 2.68 10^3/uL (1.8-7.7); Neutrophils % 65.3 %; Nucleated Red Blood Cells % 0 %; Platelet Count 96 10^3/cmm (130-400); Red Blood Count 2.99 10^6/uL (4.1-5.3); Red Cell Distribution Width 19.8 % (12.1-15.1); White Blood Count 4.1 10^3/uL (4.0-10.0)
[2023-03-11 10:40] VITALS: BMI 30.4
[2023-03-11 10:41] VITALS: BP 125/68; PULSE 87; RESP 18; TEMP 36.4; O2SAT 97
[2023-03-11 11:06] LABS: Basophils # 0.1 10^3/uL (0.0-0.1); Basophils % 1.7 %; Eosinophils # 0.2 10^3/uL (0.0-0.8); Eosinophils % 3.5 %; Hematocrit 30.3 % (37-53); Lymphocytes # 0.8 10^3/uL (0.8-4.8); Mean Corpuscular Hemoglobin 33.7 pg (27-33); Mean Corpuscular Volume 105.2 fl (82-101); Mean Platelet Volume 10.1 fL (7.4-10.4); Monocytes # 0.6 10^3/uL (0.2-0.9); Monocytes % 11.7 %; Neutrophils # 3.21 10^3/uL (1.8-7.7); Neutrophils % 66.9 %; Nucleated Red Blood Cells % 0 %; Platelet Count 132 10^3/cmm (157-399); Red Blood Count 2.88 10^6/uL (3.85-5.65)
[2023-03-11 11:19] LABS: Alanine Aminotransferase 28 U/L (0-41); Albumin Level 3.1 g/dL (3.5-5.2); Alkaline Phosphatase 68 U/L (40-130); Anion Gap 14.5 (5-19); Aspartate Amino Transferase 36 U/L (0-40); Blood Urea Nitrogen 16 mg/dL (8-23); Calcium 8.4 mg/dL (8.5-10.5); Carbon Dioxide 20 mmol/L (22-29); Chloride 106 mmol/L (98-107); Globulin 2.2 g/dL (1.3-4.6); Glomerular Filtration Rate 66.8 mL/min (90-130); Glucose 183 mg/dL (65-115); Iron 122 ug/dL (59-158); Osmolality Calculated 288 mOsm/kg (285-295); Percent Saturation 47.2 % (20-50); Potassium 4.5 mmol/L (3.5-5.1); Sodium 136 mmol/L (136-145); Total Bilirubin 1.1 mg/dL (0.15-1.2); Total Iron Binding Capacity 258 mcg/dl; Total Protein 5.3 g/dL (6.6-8.7); Unsaturated Iron Binding 136 ug/dL (112-347)
== END 2023-03-14 23:59 | disposition home or self-care (01) ==
PROVIDERS: Visit Provider Internal Medicine Medical Oncology
DX: D50.0 Iron deficiency anemia secondary to blood loss (chronic) (principal)
CPT/HCPCS: 36415; 36430; 80053; 82728; 83540; 83550; 85025; 86850; 86900; 86920; 96365; 96375; 99214; J1439; J1940; J7050; P9040

== ENCOUNTER 2023-04-08 08:12 | Oncology outpatient (recurring) (ONCR) | payer MEDICARE, OTHER, SELFPAY ==
[2023-03-19 08:52] LABS: Basophils # 0.1 10^3/uL (0.0-0.1); Basophils % 2.3 %; Eosinophils # 0.3 10^3/uL (0.0-0.8); Eosinophils % 7.1 %; Hematocrit 26.8 % (37-53); Lymphocytes # 0.9 10^3/uL (0.8-4.8); Mean Corpuscular Hemoglobin 33.5 pg (27-33); Mean Corpuscular Volume 108.1 fl (82-101); Mean Platelet Volume 9.8 fL (7.4-10.4); Monocytes # 0.6 10^3/uL (0.2-0.9); Monocytes % 14.8 %; Neutrophils # 2.02 10^3/uL (1.8-7.7); Neutrophils % 51.5 %; Nucleated Red Blood Cells % 0 %; Platelet Count 127 10^3/cmm (157-399); Red Blood Count 2.48 10^6/uL (3.85-5.65); Red Cell Distribution Width 17.2 % (12.1-15.1); White Blood Count 3.92 10^3/uL (3.29-11.43)
[2023-03-25 11:25] VITALS: BP 121/76; PULSE 81; RESP 18; TEMP 36.4; O2SAT 97
[2023-03-25 11:50] LABS: Basophils # 0.1 10^3/uL (0.0-0.1); Basophils % 1.7 %; Eosinophils # 0.3 10^3/uL (0.0-0.8); Eosinophils % 5.4 %; Hematocrit 26.2 % (37-53); Lymphocytes # 0.7 10^3/uL (0.8-4.8); Lymphocytes % 13.5 %; Mean Corpuscular HGB Conc 31.3 g/dL (30-55); Mean Corpuscular Hemoglobin 33.1 pg (27-33); Mean Corpuscular Volume 105.6 fl (82-101); Mean Platelet Volume 10.6 fL (7.4-10.4); Monocytes # 0.9 10^3/uL (0.2-0.9); Monocytes % 16.4 %; Neutrophils # 3.24 10^3/uL (1.8-7.7); Neutrophils % 62.6 %; Nucleated Red Blood Cells % 0 %; Platelet Count 138 10^3/cmm (157-399); Red Blood Count 2.48 10^6/uL (3.85-5.65); Red Cell Distribution Width 15.4 % (12.1-15.1); White Blood Count 5.18 10^3/uL (3.29-11.43)
[2023-03-25 12:16] LABS: Alanine Aminotransferase 32 U/L (0-41); Albumin Level 3.1 g/dL (3.5-5.2); Alkaline Phosphatase 80 U/L (40-130); Blood Urea Nitrogen 18 mg/dL (8-23); Calcium 8.2 mg/dL (8.5-10.5); Carbon Dioxide 19 mmol/L (22-29); Chloride 109 mmol/L (98-107); Globulin 1.9 g/dL (1.3-4.6); Glomerular Filtration Rate 66.8 mL/min (90-130); Glucose 158 mg/dL (65-115); Iron 98 ug/dL (59-158); Osmolality Calculated 285 mOsm/kg (285-295); Sodium 135 mmol/L (136-145); Total Bilirubin 0.8 mg/dL (0.15-1.2)
[2023-03-25 12:19] LABS: Anion Gap 11.5 (5-19); Percent Saturation 32.8 % (20-50); Potassium 4.5 mmol/L (3.5-5.1); Total Iron Binding Capacity 298 mcg/dl; Unsaturated Iron Binding 200 ug/dL (112-347)
[2023-03-25 12:20] LABS: Aspartate Amino Transferase 42 U/L (0-40)
--- NOTE | 2023-03-25 12:54 | PC.NURSE ---
Dr. Parham brought pt back to infusion suite. States to give pt 1 unit regular RBC due to active GI bleeding. Blood ordered. JW
[2023-03-25] MEDS: diphenhydrAMINE 25 mg Capsule PO (13:41)
[2023-03-25] MEDS: acetaminophen 325 mg Tablet 650 MG PO (13:41)
[2023-03-25] MEDS: sodium chloride 0.9% 250 mL Bag IV (13:42)
[2023-03-25 13:48] LABS: Ammonia 137 umol/L (16-60)
[2023-03-25 14:02] VITALS: BP 108/49; PULSE 81; RESP 18; TEMP 36.3; O2SAT 98
[2023-03-25 14:20] VITALS: BP 109/51; PULSE 82; RESP 18; TEMP 36.3; O2SAT 99
[2023-03-25 14:35] VITALS: BP 110/43; PULSE 82; RESP 18; TEMP 36.3; O2SAT 99
[2023-03-25 15:05] VITALS: BP 121/50; PULSE 77; RESP 18; TEMP 36.4; O2SAT 98
[2023-03-25 15:35] VITALS: BP 131/58; PULSE 87; RESP 18; TEMP 36.6; O2SAT 100
[2023-04-01 09:06] VITALS: BP 115/59; PULSE 71; RESP 18; TEMP 36.3; O2SAT 97
[2023-04-01 09:41] LABS: Basophils # 0.1 10^3/uL (0.0-0.1); Basophils % 1.6 %; Eosinophils # 0.2 10^3/uL (0.0-0.8); Eosinophils % 5.4 %; Hematocrit 28.9 % (37-53); Lymphocytes # 0.7 10^3/uL (0.8-4.8); Lymphocytes % 15.4 %; Mean Corpuscular HGB Conc 31.8 g/dL (30-55); Mean Corpuscular Hemoglobin 32.9 pg (27-33); Mean Corpuscular Volume 103.2 fl (82-101); Monocytes # 0.8 10^3/uL (0.2-0.9); Monocytes % 17.8 %; Neutrophils # 2.55 10^3/uL (1.8-7.7); Neutrophils % 59.6 %; Nucleated Red Blood Cells % 0 %; Platelet Count 128 10^3/cmm (157-399); Red Cell Distribution Width 15.9 % (12.1-15.1); White Blood Count 4.28 10^3/uL (3.29-11.43)
--- NOTE | 2023-04-01 09:54 | PC.NURSE ---
patient called and lab results reviewed, no need for transfusion today, we will recheck cbc on the . No other needs or concerns at this time.
[2023-04-08 08:49] VITALS: BP 111/71; PULSE 75; RESP 18; TEMP 36.7; O2SAT 96
[2023-04-08 09:00] LABS: Basophils # 0.1 10^3/uL (0.0-0.1); Basophils % 1.8 %; Eosinophils # 0.3 10^3/uL (0.0-0.8); Eosinophils % 6.3 %; Lymphocytes # 0.7 10^3/uL (0.8-4.8); Lymphocytes % 17.1 %; Mean Corpuscular HGB Conc 31.1 g/dL (30-55); Mean Corpuscular Hemoglobin 31.5 pg (27-33); Mean Corpuscular Volume 101.1 fl (82-101); Mean Platelet Volume 9.8 fL (7.4-10.4); Monocytes # 0.5 10^3/uL (0.2-0.9); Monocytes % 13.1 %; Neutrophils # 2.44 10^3/uL (1.8-7.7); Neutrophils % 61.4 %; Nucleated Red Blood Cells % 0 %; Platelet Count 133 10^3/cmm (157-399); Red Blood Count 2.67 10^6/uL (3.85-5.65); Red Cell Distribution Width 15.9 % (12.1-15.1); White Blood Count 3.97 10^3/uL (3.29-11.43)
--- NOTE | 2023-04-08 09:30 | PC.NURSE ---
patient called with lab results no need for transfusion today per provider, to return next week for recheck on labs. No other needs at this time.
== END 2023-04-13 23:59 | disposition home or self-care (01) ==
PROVIDERS: Visit Provider Internal Medicine Medical Oncology
DX: D64.9 Anemia, unspecified (principal)
CPT/HCPCS: 36415; 36430; 80053; 82140; 83540; 83550; 85025; 86850; 86900; 86920; 99214; J7050; P9040

== ENCOUNTER → 2023-04-18 12:00 | Day surgery (SDC) | payer MEDICARE, OTHER, SELFPAY ==
[2023-04-18] VITALS (9 sets, daily range): BP systolic 110–124; BP diastolic 54–74; PULSE 71–82; RESP 18; TEMP 36.1–36.4; O2SAT 99–100
[2023-04-18 10:05] LABS: Basophils # 0.1 10^3/uL (0.0-0.1); Basophils % 1.5 %; Eosinophils # 0.2 10^3/uL (0.0-0.8); Eosinophils % 6.8 %; Hematocrit 23.1 % (37-53); Lymphocytes # 0.6 10^3/uL (0.8-4.8); Lymphocytes % 17.6 %; Mean Corpuscular HGB Conc 31.2 g/dL (30-55); Mean Corpuscular Hemoglobin 30.4 pg (27-33); Mean Corpuscular Volume 97.5 fl (82-101); Mean Platelet Volume 10.5 fL (7.4-10.4); Monocytes # 0.5 10^3/uL (0.2-0.9); Monocytes % 16.7 %; Neutrophils # 1.85 10^3/uL (1.8-7.7); Neutrophils % 57.1 %; Nucleated Red Blood Cells % 0 %; Platelet Count 124 10^3/cmm (157-399); Red Blood Count 2.37 10^6/uL (3.85-5.65); Red Cell Distribution Width 14.6 % (12.1-15.1); White Blood Count 3.24 10^3/uL (3.29-11.43)
--- NOTE | 2023-04-18 12:36 | PC.NURSE ---
Pt to GI infusions from Oncology for blood transfusion. IV in place from Oncology to left AC. Blood started with no reaction noted. Pt to receive 2 units for Hg 7.2.
[2023-04-18] MEDS: sodium chloride 0.9% 100 mL Bag 50 ML IV ×2 (12:39→14:15)
== END ==
PROVIDERS: Visit Provider Nurse Practitioner Family
DX: D64.9 Anemia, unspecified (principal)
CPT/HCPCS: 36430; 85025; 86850; 86900; 86920; P9040

== ENCOUNTER 2023-05-13 14:00 | Oncology outpatient (recurring) (ONCR) | payer MEDICARE, OTHER, SELFPAY ==
[2023-04-15 08:35] VITALS: BP 122/56; PULSE 76; RESP 16; TEMP 36.1; O2SAT 97
[2023-04-15 08:46] LABS: Basophils # 0.1 10^3/uL (0.0-0.1); Basophils % 2.1 %; Eosinophils # 0.3 10^3/uL (0.0-0.8); Eosinophils % 8.4 %; Hematocrit 25.9 % (37-53); Lymphocytes # 0.7 10^3/uL (0.8-4.8); Lymphocytes % 19.8 %; Mean Corpuscular HGB Conc 30.9 g/dL (30-55); Mean Corpuscular Hemoglobin 30.8 pg (27-33); Mean Corpuscular Volume 99.6 fl (82-101); Monocytes # 0.5 10^3/uL (0.2-0.9); Monocytes % 15.6 %; Neutrophils # 1.79 10^3/uL (1.8-7.7); Neutrophils % 53.8 %; Nucleated Red Blood Cells % 0 %; Platelet Count 133 10^3/cmm (157-399); Red Cell Distribution Width 14.6 % (12.1-15.1); White Blood Count 3.33 10^3/uL (3.29-11.43)
--- NOTE | 2023-04-15 10:07 | PC.NURSE ---
Called pt with lab results. Pts Hgb is 8.0. Pt states he is feeling fine, does not feel like he needs a transfusion. Scheduled pt for 04/18/23 for lab recheck and possible transfusion. Marie Ruth NP gave verbal orders if pt is feeling fine, no transfusion needed and to recheck labs on with possible transfusion.
[2023-04-22] VITALS (10 sets, daily range): BP systolic 105–127; BP diastolic 58–73; PULSE 60–81; RESP 16; TEMP 36.7–36.9; O2SAT 95–99
[2023-04-22 08:56] LABS: Basophils # 0.1 10^3/uL (0.0-0.1); Basophils % 1.6 %; Eosinophils # 0.3 10^3/uL (0.0-0.8); Hematocrit 26.2 % (37-53); Lymphocytes # 0.7 10^3/uL (0.8-4.8); Lymphocytes % 14.4 %; Mean Corpuscular HGB Conc 30.9 g/dL (30-55); Mean Platelet Volume 10.1 fL (7.4-10.4); Monocytes # 0.7 10^3/uL (0.2-0.9); Monocytes % 15.6 %; Neutrophils % 62.2 %; Nucleated Red Blood Cells % 0 %; Platelet Count 130 10^3/cmm (157-399); Red Cell Distribution Width 16.7 % (12.1-15.1)
[2023-04-22] MEDS: diphenhydrAMINE 25 mg Capsule PO (11:11)
[2023-04-22] MEDS: acetaminophen 325 mg Tablet 650 MG PO (11:11)
[2023-04-22] MEDS: sodium chloride 0.9% 250 mL Bag IV (11:24)
[2023-04-29 08:30] VITALS: BP 123/71; PULSE 80; RESP 16; TEMP 36.8; O2SAT 95
[2023-04-29 08:58] LABS: Basophils # 0.1 10^3/uL (0.0-0.1); Basophils % 2.2 %; Eosinophils # 0.3 10^3/uL (0.0-0.8); Eosinophils % 6.6 %; Hematocrit 30.4 % (37-53); Lymphocytes # 0.7 10^3/uL (0.8-4.8); Lymphocytes % 16.1 %; Mean Corpuscular HGB Conc 31.3 g/dL (30-55); Mean Corpuscular Hemoglobin 29.6 pg (27-33); Mean Corpuscular Volume 94.7 fl (82-101); Monocytes # 0.6 10^3/uL (0.2-0.9); Monocytes % 14.2 %; Neutrophils # 2.48 10^3/uL (1.8-7.7); Neutrophils % 60.7 %; Nucleated Red Blood Cells % 0 %; Platelet Count 130 10^3/cmm (157-399); Red Blood Count 3.21 10^6/uL (3.85-5.65); Red Cell Distribution Width 16.8 % (12.1-15.1); White Blood Count 4.09 10^3/uL (3.29-11.43)
[2023-05-06 10:47] VITALS: BP 122/77; PULSE 78; RESP 18; TEMP 36.7; O2SAT 95
[2023-05-06 11:10] LABS: Basophils # 0.1 10^3/uL (0.0-0.1); Basophils % 1.8 %; Eosinophils # 0.3 10^3/uL (0.0-0.8); Eosinophils % 5.8 %; Hematocrit 29.3 % (37-53); Lymphocytes # 0.8 10^3/uL (0.8-4.8); Lymphocytes % 15.5 %; Mean Corpuscular HGB Conc 31.7 g/dL (30-55); Mean Corpuscular Hemoglobin 30.1 pg (27-33); Mean Corpuscular Volume 94.8 fl (82-101); Mean Platelet Volume 10.7 fL (7.4-10.4); Monocytes # 0.7 10^3/uL (0.2-0.9); Monocytes % 13.9 %; Neutrophils # 3.12 10^3/uL (1.8-7.7); Neutrophils % 62.6 %; Nucleated Red Blood Cells % 0 %; Platelet Count 162 10^3/cmm (157-399); Red Blood Count 3.09 10^6/uL (3.85-5.65); Red Cell Distribution Width 16.4 % (12.1-15.1); White Blood Count 4.98 10^3/uL (3.29-11.43)
[2023-05-06 13:27] LABS: Alanine Aminotransferase 26 U/L (0-41); Alkaline Phosphatase 93 U/L (40-130); Anion Gap 13.4 (5-19); Aspartate Amino Transferase 35 U/L (0-40); Blood Urea Nitrogen 19 mg/dL (8-23); Calcium 8.6 mg/dL (8.5-10.5); Carbon Dioxide 20 mmol/L (22-29); Chloride 107 mmol/L (98-107); Globulin 2.4 g/dL (1.3-4.6); Glomerular Filtration Rate 55.1 mL/min (90-130); Glucose 163 mg/dL (65-115); Iron 164 ug/dL (59-158); Osmolality Calculated 288 mOsm/kg (285-295); Percent Saturation 53.2 % (20-50); Potassium 4.4 mmol/L (3.5-5.1); Sodium 136 mmol/L (136-145); Total Bilirubin 1.4 mg/dL (0.15-1.2); Total Iron Binding Capacity 308 mcg/dl; Total Protein 5.4 g/dL (6.6-8.7); Unsaturated Iron Binding 144 ug/dL (112-347)
[2023-05-13 14:28] VITALS: BP 126/63; PULSE 77; RESP 17; TEMP 36.9; O2SAT 98
[2023-05-13 14:28] LABS: Basophils # 0.1 10^3/uL (0.0-0.1); Basophils % 1.5 %; Eosinophils # 0.3 10^3/uL (0.0-0.8); Eosinophils % 4.8 %; Hematocrit 30.2 % (37-53); Lymphocytes # 0.9 10^3/uL (0.8-4.8); Lymphocytes % 16.5 %; Mean Corpuscular HGB Conc 31.1 g/dL (30-55); Mean Corpuscular Hemoglobin 29.5 pg (27-33); Mean Corpuscular Volume 94.7 fl (82-101); Mean Platelet Volume 9.8 fL (7.4-10.4); Monocytes # 1.1 10^3/uL (0.2-0.9); Monocytes % 19.8 %; Neutrophils # 3.11 10^3/uL (1.8-7.7); Neutrophils % 57.4 %; Nucleated Red Blood Cells % 0 %; Platelet Count 141 10^3/cmm (157-399); Red Blood Count 3.19 10^6/uL (3.85-5.65); Red Cell Distribution Width 16.2 % (12.1-15.1); White Blood Count 5.41 10^3/uL (3.29-11.43)
== END 2023-05-14 23:59 | disposition home or self-care (01) ==
PROVIDERS: Nurse Practitioner Family; Visit Provider Internal Medicine Medical Oncology
DX: D64.9 Anemia, unspecified (principal)
CPT/HCPCS: 36415; 36430; 36591; 80053; 83540; 83550; 85025; 86850; 86900; 86920; 99214; J7050; P9040

== ENCOUNTER 2023-06-10 13:30 | Oncology outpatient (recurring) (ONCR) | payer MEDICARE, OTHER, SELFPAY ==
[2023-05-20 14:04] VITALS: BP 116/63; PULSE 82; RESP 16; TEMP 36.8; O2SAT 96
[2023-05-20 14:21] LABS: Basophils # 0.1 10^3/uL (0.0-0.1); Basophils % 1.5 %; Eosinophils # 0.2 10^3/uL (0.0-0.8); Eosinophils % 5.6 %; Hematocrit 31.2 % (37-53); Lymphocytes # 0.7 10^3/uL (0.8-4.8); Lymphocytes % 17.1 %; Mean Corpuscular HGB Conc 30.8 g/dL (30-55); Mean Corpuscular Hemoglobin 29.6 pg (27-33); Mean Corpuscular Volume 96.3 fl (82-101); Mean Platelet Volume 10.1 fL (7.4-10.4); Monocytes # 0.7 10^3/uL (0.2-0.9); Monocytes % 17.3 %; Neutrophils # 2.39 10^3/uL (1.8-7.7); Neutrophils % 58.3 %; Nucleated Red Blood Cells % 0 %; Platelet Count 108 10^3/cmm (157-399); Red Blood Count 3.24 10^6/uL (3.85-5.65); Red Cell Distribution Width 16.1 % (12.1-15.1)
[2023-05-27 14:03] VITALS: BP 128/64; PULSE 88; RESP 16; TEMP 36.7; O2SAT 94
[2023-05-27 14:27] LABS: Basophils # 0.1 10^3/uL (0.0-0.1); Basophils % 1.4 %; Eosinophils # 0.2 10^3/uL (0.0-0.8); Eosinophils % 4.7 %; Hematocrit 30.5 % (37-53); Lymphocytes # 0.7 10^3/uL (0.8-4.8); Lymphocytes % 16.7 %; Mean Corpuscular HGB Conc 30.8 g/dL (30-55); Mean Corpuscular Hemoglobin 29.6 pg (27-33); Mean Corpuscular Volume 95.9 fl (82-101); Mean Platelet Volume 10.1 fL (7.4-10.4); Monocytes # 0.6 10^3/uL (0.2-0.9); Monocytes % 13.4 %; Neutrophils % 63.6 %; Nucleated Red Blood Cells % 0 %; Platelet Count 123 10^3/cmm (157-399); Red Blood Count 3.18 10^6/uL (3.85-5.65); Red Cell Distribution Width 15.9 % (12.1-15.1); White Blood Count 4.25 10^3/uL (3.29-11.43)
[2023-06-03 14:35] VITALS: BP 106/69; PULSE 95; TEMP 36.8; O2SAT 99
[2023-06-03 14:46] LABS: Basophils # 0.1 10^3/uL (0.0-0.1); Basophils % 1.7 %; Eosinophils # 0.2 10^3/uL (0.0-0.8); Eosinophils % 4.1 %; Hematocrit 33.1 % (37-53); Lymphocytes # 0.7 10^3/uL (0.8-4.8); Lymphocytes % 15.1 %; Mean Corpuscular HGB Conc 30.5 g/dL (30-55); Mean Corpuscular Hemoglobin 28.9 pg (27-33); Mean Corpuscular Volume 94.8 fl (82-101); Mean Platelet Volume 9.5 fL (7.4-10.4); Monocytes # 0.9 10^3/uL (0.2-0.9); Monocytes % 19.6 %; Neutrophils # 2.74 10^3/uL (1.8-7.7); Neutrophils % 59.1 %; Nucleated Red Blood Cells % 0 %; Platelet Count 151 10^3/cmm (157-399); Red Blood Count 3.49 10^6/uL (3.85-5.65); Red Cell Distribution Width 15.9 % (12.1-15.1); White Blood Count 4.64 10^3/uL (3.29-11.43)
--- NOTE | 2023-06-03 15:38 | PC.NURSE ---
Called pt, notified of Hgb of 10.10. No transfusion needed today. JW
[2023-06-10 13:12] VITALS: BP 116/55; PULSE 76; RESP 16; TEMP 36.9; O2SAT 96
[2023-06-10 13:48] LABS: Basophils # 0.1 10^3/uL (0.0-0.1); Basophils % 1.9 %; Eosinophils # 0.2 10^3/uL (0.0-0.8); Eosinophils % 4.5 %; Hematocrit 28.2 % (37-53); Lymphocytes # 0.6 10^3/uL (0.8-4.8); Lymphocytes % 17.1 %; Mean Corpuscular HGB Conc 31.2 g/dL (30-55); Mean Corpuscular Hemoglobin 29.5 pg (27-33); Mean Corpuscular Volume 94.6 fl (82-101); Mean Platelet Volume 10.8 fL (7.4-10.4); Monocytes # 0.6 10^3/uL (0.2-0.9); Monocytes % 16.5 %; Neutrophils # 2.24 10^3/uL (1.8-7.7); Neutrophils % 59.7 %; Nucleated Red Blood Cells % 0 %; Platelet Count 118 10^3/cmm (157-399); Red Blood Count 2.98 10^6/uL (3.85-5.65); Red Cell Distribution Width 15.8 % (12.1-15.1); White Blood Count 3.75 10^3/uL (3.29-11.43)
== END 2023-06-13 23:59 | disposition home or self-care (01) ==
PROVIDERS: Nurse Practitioner Family; Visit Provider Internal Medicine Medical Oncology
DX: D64.9 Anemia, unspecified (principal)
CPT/HCPCS: 36415; 85025

== ENCOUNTER 2023-06-15 12:46 | Inpatient (IN) | payer MEDICARE, OTHER, SELFPAY ==
[2023-06-15 13:24] VITALS: BP 125/76; PULSE 86; RESP 18; TEMP 36.7; O2SAT 99; BMI 23.7
--- NOTE | 2023-06-15 13:57 | ED_ITS ---
HPI - Altered Mental Status 2 General: Chief Complaint: Altered Mental Status Stated Complaint: not talking, n/V Time Seen by Provider: 06/15/23 13:44 Source: patient Mode of arrival: ambulatory History of Present Illness: 68-year-old male presents emergency room with increased confusion beginning yesterday morning he has not been taking his lactulose regularly. 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 He has a known history of esophageal varices and has had banding done. When he has had a TIPS procedure which is cut down significantly on his portal hypertension. No fever sweats chills no abdominal pain. Has noticed steady improvement increasing confusion since he has not been taking his lactulose complaint: altered mental status and confusion Onset (ago): day(s) Associated symptoms: Deny auditory hallucinations, visual hallucinations, delusions, depression, homicidal ideation, racing thoughts or suicidal ideation Review of Systems 2 Const: Denies: fever(s) or chills Card: Denies: chest pain Resp: Denies: dyspnea GI: Denies: abdominal pain : Denies: dysuria, urinary frequency or urinary urgency Musc: Denies: neck pain or back pain Skin/Breast: Denies: rash Psych: Denies: depression, visual hallucinations, auditory hallucinations, suicidal ideation or homicidal ideation PFSH ED 2 PFSH: Medical History Diabetes 1.5, 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) Thrombocytopenia, unspecified Hyponatremia Chronic hyponatremia 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 Upper GI bleed CKD (chronic kidney disease) stage 2, GFR 60-89 ml/min -baseline Cr wnl -current renal function at baseline Hepatic encephalopathy -noted ammonia-69; mentation at baseline -on lactulose Obstructive sleep apnea -CPAP qhs Hypothyroidism -TSH wnl -continue levothyroxine Hypertension -VSS -discontinue ARB, continue Aldactone; due to low normal BP and risk of hypotension GERD (gastroesophageal reflux disease) Acute hyponatremia -improved with hydration, on salt tablets -suspect some degree of this will persist chronically Surgical History 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 @ [place], [place] History of umbilical hernia repair (04/18/21) H/O esophagogastroduodenoscopy (03/08/20) History of vasectomy History of surgery on upper extremity History of arthroscopic knee surgery History of appendectomy Family History Other Bleeding disorder CAD (coronary artery disease) Diabetes Hypertension Lung disease Psychiatric illness Denies family history of Clotting disorder Dementia Hyperlipidemia Chronic kidney disease (CKD) Suicide Anesthesia complication Cancer Stroke Social History Smoking and tobacco/nicotine status: former use of tobacco/nicotine Quit status (tobacco/nicotine): has quit using Year quit tobacco: 1981 Former quit date comment: smoked 40+ years Alcohol intake: former Substance/Drug Use: never Physical Exam 2 Const: COMMON NORMALS: no acute distress GENERAL APPEARANCE: cooperative and comfortable ORIENTATION/CONSCIOUSNESS: Yes awake HENMT: COMMON NORMALS: normocephalic, atraumatic and hearing grossly normal bilaterally HEAD & SCALP: normocephalic and atraumatic Resp: COMMON NORMALS: normal respiratory effort, No retractions, No use of accessory muscles and clear to auscultation bilaterally AUSCULTATION: clear to auscultation bilaterally Cardio: COMMON NORMALS: regular rate, regular rhythm and No murmurs present (Cardio) RATE: regular rate RHYTHM: regular rhythm GI: COMMON NORMALS: Soft to palpation and No hepatosplenomegaly present A USCULTATION: Yes normoactive bowel sounds PALPATION: Yes Soft to palpation, No Tenderness to palpation present (GI), No Guarding due to palpation present (GI) and Yes No hepatosplenomegaly present Extremity: COMMON NORMALS: normal to inspection, capillary refill normal, no clubbing, cyanosis or edema, no calf tenderness and no pedal edema Psych: THOUGHT CONTENT: No delusions Skin: COMMON NORMALS: no rashes or lesions noted GENERAL SKIN EXAM: no rashes or lesions noted Course 2 Vital Signs: Vital signs: Vital Signs Temperature 98.1 F 06/18/23 11:01 Pulse Rate 69 06/18/23 11:01 Respiratory Rate 17 06/18/23 11:01 Blood Pressure 113/55 06/18/23 11:01 Pulse Oximetry 99 06/18/23 11:01 Oxygen Delivery Me thod Room Air 06/18/23 11:01 MDM - Altered Mental Status Medical Decision Making Acute hepatic encephalopathy with elevated ammonia level. Discussed with his family. He does have esophageal varices no active bleeding at this time. Anemia and thrombocytopenia consistent with his history of cirrhosis. Will admit discussed with hospitalist Medical Records I reviewed the patient's medical records. Lab Data I reviewed the patient's lab results. 06/18/23 04:14 06/18/23 04:14 Radiology Impressions Abdomen/Pelvis CT 06/15/23 16:56 IMPRESSION: No acute abdominal findings. Mild age-indeterminate compression deformity of L3, new from prior comparison. Other chronic/incidental findings as above. Chest X-Ray 06/15/23 16:56 IMPRESSION: No acute findings. Head CT 06/15/23 16:56 IMPRESSION: Negative for intracranial hemorrhage or mass effect. Laboratory Results WBC 4.81 10^3/uL (3.29-11.43) 06/15/23 14:00 RBC 3.37 10^6/uL (3.85-5.65) L 06/15/23 14:00 Hgb 9.80 g/dL (11.27-16.99) L 06/15/23 14:00 Hct 32.3 % (37-53) L 06/15/23 14:00 MCV 95.8 fl (82-101) 06/15/23 14:00 MCH 29.1 pg (27-33) 06/15/23 14:00 MCHC 30.3 g/dL (30-55) 06/15/23 14:00 RDW 16.6 % (12.1-15.1) H 06/15/23 14:00 Plt Count 133 10^3/cmm (157-399) L 06/15/23 14:00 MPV 10.9 fL (7.4-10.4) H 06/15/23 14:00 Neut % (Auto) 67.0 % 06/15/23 14:00 Lymph % (Auto) 11.6 % 06/15/23 14:00 [place] % (Auto) 16.2 % 06/15/23 14:00 Eos % (Auto) 3.5 % 06/15/23 14:00 Baso % (Auto) 1.5 % 06/15/23 14:00 Neut # (Auto) 3.22 10^3/uL (1.8-7.7) 06/15/23 14:00 Lymph # (Auto) 0.6 10^3/uL (0.8-4.8) L 06/15/23 14:00 [place] # (Auto) 0.8 10^3/uL (0.2-0.9) 06/15/23 14:00 Eos # (Auto) 0.2 10^3/uL (0.0-0.8) 06/15/23 14:00 Baso # (Auto) 0.1 10^3/uL (0.0-0.1) 06/15/23 14:00 Nucleated RBC % (auto) 0 % 06/15/23 14:00 Nucleated RBCs # 0.0 /100WBC 06/15/23 14:00 PT 17.80 SECONDS (12.1-14.9) H 06/15/23 14:00 INR 1.42 (0.8-1.2) H 06/15/23 14:00 Sodium 139 mmol/L (136-145) 06/15/23 14:00 Potassium 4.3 mmol/L (3.5-5.1) 06/15/23 14:00 Chloride 109 mmol/L (98-107) H 06/15/23 14:00 Carbon Dioxide 16 mmol/L (22-29) L 06/15/23 14:00 Anion Gap 18.3 (5-19) 06/15/23 14:00 BUN 19 mg/dL (8-23) 06/15/23 14:00 Creatinine 1.2 mg/dL (0.7-1.2) 06/15/23 14:00 GFR Calculation 60.4 mL/min (90-130) L 06/15/23 14:00 Glucose 155 mg/dL (65-115) H 06/15/23 14:00 Calculated Osmolality 293 mOsm/kg (285-295) 06/15/23 14:00 Lactic Acid 3.3 mmol/L (0.5-2.2) H 06/15/23 14:00 Calcium 9.5 mg/dL (8.5-10.5) 06/15/23 14:00 Total Bilirubin 1.4 mg/dL (0.15-1.2) H 06/15/23 14:00 AST 38 U/L (0-40) 06/15/23 14:00 ALT 31 U/L (0-41) 06/15/23 14:00 Alkaline Phosphatase 85 U/L (40-130) 06/15/23 14:00 Ammonia 151 umol/L (16-60) H 06/15/23 14:00 Total Protein 5.9 g/dL (6.6-8.7) L 06/15/23 14:00 Albumin 3.3 g/dL (3.5-5.2) L 06/15/23 14:00 Globulin 2.6 g/dL (1.3-4.6) 06/15/23 14:00 Lipase 23 U/L (13-60) 06/15/23 14:00 Urine Color Yellow (Yellow) 06/15/23 15:01 Urine Appearance Clear (CLEAR) 06/15/23 15:01 Urine pH 5 (5-7) 06/15/23 15:01 Ur Specific [place] 1.015 (1.005-1.030) 06/15/23 15:01 Urine Protein Neg (Negative) 06/15/23 15:01 Urine Glucose (UA) Norm (Normal) 06/15/23 15:01 Urine Ketones Negative (Negative) 06/15/23 15:01 Urine Blood Neg (Negative) 06/15/23 15:01 Urine Nitrate Negative (Negative) 06/15/23 15:01 Urine Bilirubin Neg (Negative) 06/15/23 15:01 Urine Urobilinogen Norm mg/dL (Negative) 06/15/23 15:01 Ur Leukocyte Esterase Negative (Negative) 06/15/23 15:01 All radiology interpretation(s) finalized by discharge Discharge Plan Discharge Patient Disposition: Admitted As Inpatient Admit Provider: Per Will Clinical Impression: Acute hepatic encephalopathy, 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
[2023-06-15 14:08] LABS: Basophils # 0.1 10^3/uL (0.0-0.1); Basophils % 1.5 %; Eosinophils # 0.2 10^3/uL (0.0-0.8); Eosinophils % 3.5 %; Hematocrit 32.3 % (37-53); Lymphocytes # 0.6 10^3/uL (0.8-4.8); Lymphocytes % 11.6 %; Mean Corpuscular HGB Conc 30.3 g/dL (30-55); Mean Corpuscular Hemoglobin 29.1 pg (27-33); Mean Corpuscular Volume 95.8 fl (82-101); Mean Platelet Volume 10.9 fL (7.4-10.4); Monocytes # 0.8 10^3/uL (0.2-0.9); Monocytes % 16.2 %; Neutrophils # 3.22 10^3/uL (1.8-7.7); Nucleated Red Blood Cells % 0 %; Platelet Count 133 10^3/cmm (157-399); Red Blood Count 3.37 10^6/uL (3.85-5.65); Red Cell Distribution Width 16.6 % (12.1-15.1); White Blood Count 4.81 10^3/uL (3.29-11.43)
[2023-06-15 14:22] LABS: INR 1.42 (0.8-1.2)
[2023-06-15 14:31] LABS: Alanine Aminotransferase 31 U/L (0-41); Albumin Level 3.3 g/dL (3.5-5.2); Alkaline Phosphatase 85 U/L (40-130); Anion Gap 18.3 (5-19); Aspartate Amino Transferase 38 U/L (0-40); Blood Urea Nitrogen 19 mg/dL (8-23); Calcium 9.5 mg/dL (8.5-10.5); Carbon Dioxide 16 mmol/L (22-29); Chloride 109 mmol/L (98-107); Globulin 2.6 g/dL (1.3-4.6); Glomerular Filtration Rate 60.4 mL/min (90-130); Glucose 155 mg/dL (65-115); Lipase 23 U/L (13-60); Osmolality Calculated 293 mOsm/kg (285-295); Potassium 4.3 mmol/L (3.5-5.1); Sodium 139 mmol/L (136-145); Total Bilirubin 1.4 mg/dL (0.15-1.2); Total Protein 5.9 g/dL (6.6-8.7)
[2023-06-15 14:32] LABS: Ammonia 151 umol/L (16-60); Lactic Sepsis W/Reflex 3.3 mmol/L (0.5-2.2)
[2023-06-15 15:16] LABS: Add Urine Microscopic? NO; Charge for UA Resulting for Rev
[2023-06-15 15:19] LABS: Bilirubin Urine Neg (Negative); Blood Urine Neg (Negative); Glucose Urine UA Norm (Normal); Ketones Urine Negative (Negative); Leukocyte Esterase Urine Negative (Negative); Nitrate Urine Negative (Negative); Protein Urine Neg (Negative); Specific Gravity, Urine 1.015 (1.005-1.030); Urine Appearance Clear (CLEAR); Urine Color Yellow (Yellow); Urobilinogen Urine Norm (Negative); pH Urine 5 (5-7)
[2023-06-15 15:52] LABS: Reflex Lactate Order REFLEX LACTIC ORDERD
--- NOTE | 2023-06-15 16:56 | CTR_ITS ---
PROCEDURE INFORMATION: Exam: CT Abdomen And Pelvis Without Contrast Exam date and time: 06/15/2023 5:07 PM Age: 68 years old Clinical indication: Abdominal pain; Generalized; Additional info: Abdominal distention TECHNIQUE: Imaging protocol: Computed tomography of the abdomen and pelvis without contrast. Radiation optimization: All CT scans at this facility use at least one of these dose optimization techniques: automated exposure control; mA and/or kV adjustment per patient size (includes targeted exams where dose is matched to clinical indication); or iterative reconstruction. REPORTING DATA: Count of CT and Cardiac NM exams in prior 12 months: This patient has received 0 known CTs and 0 known cardiac nuclear medicine studies in the 12 months prior to the current study. COMPARISON: CT abdomen pelvis w con* [id number] 04/17/2021 10:14 PM RADIATION DOSE METRICS: Total DLP (mGy-cm): 1006.38 FINDINGS: Liver: Nodular hepatic contour with presumably tips present. Gallbladder and bile ducts: Cholelithiasis. Pancreas: No ductal dilation. Spleen: No splenomegaly. Adrenal glands: No mass. Kidneys and ureters: Punctate nonobstructing left lower pole renal calculus. No ureteral calculi or hydronephrosis. Stomach and bowel: No obstruction. Appendix: No evidence of appendicitis. Intraperitoneal space: No free air. No significant fluid collection. Vasculature: No abdominal aortic aneurysm. Lymph nodes: No enlarged lymph nodes. Urinary bladder: No acute findings. Reproductive: Unremarkable as visualized. Bones/joints: Mild superior endplate compression deformity of L3, new from prior comparison 04/17/2021. Soft tissues: Unremarkable. CT/CT abdomen pelvis wo con [id number] IMPRESSION: No acute abdominal findings. Mild age-indeterminate compression deformity of L3, new from prior comparison. Other chronic/incidental findings as above.
--- NOTE | 2023-06-15 16:56 | XRR_ITS ---
PROCEDURE INFORMATION: Exam: XR Chest Exam date and time: 06/15/2023 6:08 PM Age: 68 years old Clinical indication: Other: AMS TECHNIQUE: Imaging protocol: Radiologic exam of the chest. Views: 1 view. COMPARISON: CR XR chest 1V portable [id number] 08/13/2021 2:51 PM FINDINGS: Lungs: Low lung volumes. No focal consolidation. Pleural spaces: No pleural effusion. No pneumothorax. Heart/Mediastinum: No cardiomegaly. Bones/joints: No acute findings. XR/XR chest 1V portable [id number] IMPRESSION: No acute findings.
--- NOTE | 2023-06-15 16:56 | CTR_ITS ---
PROCEDURE INFORMATION: Exam: CT Head Without Contrast Exam date and time: 06/15/2023 5:04 PM Age: 68 years old Clinical indication: Altered mental status/memory loss; Additional info: AMS TECHNIQUE: Imaging protocol: Computed tomography of the head without contrast. Radiation optimization: All CT scans at this facility use at least one of these dose optimization techniques: automated exposure control; mA and/or kV adjustment per patient size (includes targeted exams where dose is matched to clinical indication); or iterative reconstruction. REPORTING DATA: Count of CT and Cardiac NM exams in prior 12 months: This patient has received 0 known CTs and 0 known cardiac nuclear medicine studies in the 12 months prior to the current study. COMPARISON: CT angio headneck* [id number] 06/14/2021 1:03 PM RADIATION DOSE METRICS: Total DLP (mGy-cm): 1114.08 FINDINGS: Brain: Large amount of diffuse white matter disease likely reflecting chronic microvascular ischemic changes. Cerebral ventricles: No ventriculomegaly. Paranasal sinuses: Paranasal sinus opacifications. Mastoid air cells: Visualized mastoid air cells are well aerated. Bones/joints: Unremarkable. No acute fracture. Soft tissues: Unremarkable. CT/CT head wo con* [id number] IMPRESSION: Negative for intracranial hemorrhage or mass effect.
--- NOTE | 2023-06-15 16:56 | PM.HP ---
Providers/Chief Complaint Primary Care Provider: Floresita Bustillo DO Chief Complaint: not talking, n/V History of Present Illness Luis Muñoz is a 68 year old male liver cirrhosis, status post TIPS procedure, history of GI bleed, history of anemia, history of hyponatremia, history of CKD, history of type 2 diabetes mellitus, history of hepatic encephalopathy, hypertension, hypothyroidism, artificial anemia, liver cirrhosis secondary to Delacruz, history of upper GI bleed, thrombocytopenia, sleep apnea who presents [facility] due to increased confusion, weakness in bilateral extremities. Currently patient alert to person, not to place, not to time he can follow some commands but is quite drowsy and falls back asleep. Patient's son is at bedside, he tells me for the last 48 hours, his father has been increasingly weak, fatigued, poor appetite, increasingly confused, he believes that his father is taking his lactulose and rifaximin but is not 100% sure, no fevers, no chills, no cough, no abdominal pain has been reported, he has been weak for the last few days Review of Systems General: Reports: ROS unobtainable due to medical condition Medications/Allergies Home Medications Medication Instructions Recorded Confirmed Last Taken Type levothyroxine 25 mcg tablet 25 mcg PO DAILY@0800 02/16/20 06/15/23 06/15/23 History fluticasone propionate 50 2 spray intranasal DAILY PRN 04/18/21 06/15/23 01/09/22 History mcg/actuation nasal Allergy Symptoms spray,suspension (Flonase Allergy Relief) multivitamin with minerals-folic 1 tab PO DAILY 06/14/21 06/15/23 06/15/23 History acid 200 mcg chewable tablet (One-A-Day Men VitaCraves) furosemide 40 mg tablet (Lasix) 40 mg PO DAILY 07/10/21 06/15/23 06/15/23 History rifaximin 550 mg tablet (Xifaxan) 550 mg PO BID #90 tabs 08/15/21 06/15/23 06/15/23 Rx ferrous sulfate 325 mg (65 mg 325 mg PO BID 12/28/22 06/15/23 06/15/23 History iron) tablet folic acid 20 mg capsule 20 mg PO DAILY 12/28/22 06/15/23 06/15/23 History insulin aspart U-100 100 unit/mL See Rx Instructions SUBCUT TID 12/28/22 06/15/23 06/15/23 History subcutaneous solution (Novolog U-100 Insulin aspart) lactulose 10 gram/15 mL oral See Rx Instructions .Route .COMPLEX 12/28/22 06/15/23 06/15/23 History solution (Enulose) lidocaine 5 % topical patch 1 patch topical DAILY PRN Pain 12/28/22 06/15/23 Unknown History midodrine 5 mg tablet 25 mg PO BID 12/28/22 06/15/23 06/15/23 History spironolactone 100 mg tablet 100 mg PO DAILY 12/28/22 06/15/23 06/15/23 History ondansetron HCl 4 mg tablet 4 mg PO Q4H PRN nausea and 03/25/23 06/15/23 Unknown Rx vomiting #30 tabs pantoprazole 40 mg tablet,delayed 40 mg PO DAILY 03/25/23 06/15/23 06/15/23 History release betamethasone dipropionate 0.05 % 1 applic topical BID PRN Rash 06/15/23 06/15/23 Unknown History topical ointment insulin glargine 100 unit/mL (3 18 unit SUBCUT QPM 06/15/23 06/15/23 06/14/23 History mL) subcutaneous pen (Basaglar KwikPen U-100 Insulin) Allergies Allergy/AdvReac Type Severity Reaction Status Date / Time Sulfa (Sulfonamide Allergy ALGY-Rash Verified 06/15/23 14:59 Antibiotics) PFSH Acute PFSH: Medical History Diabetes 1.5, 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) Thrombocytopenia, unspecified Hyponatremia Chronic hyponatremia Liver cirrhosis secondary to DELACRUZ Upper GI bleed CKD (chronic kidney disease) stage 2, GFR 60-89 ml/min -baseline Cr wnl -current renal function at baseline Hepatic encephalopathy -noted ammonia-69; mentation at baseline -on lactulose Obstructive sleep apnea -CPAP qhs Hypothyroidism -TSH wnl -continue levothyroxine Hypertension -VSS -discontinue ARB, continue Aldactone; due to low normal BP and risk of hypotension GERD (gastroesophageal reflux disease) Acute hyponatremia -improved with hydration, on salt tablets -suspect some degree of this will persist chronically Surgical History 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 @ [place], [place] History of umbilical hernia repair (04/18/21) H/O esophagogastroduodenoscopy (03/08/20) History of vasectomy History of surgery on upper extremity History of arthroscopic knee surgery History of appendectomy Family History Other Bleeding disorder CAD (coronary artery disease) Diabetes Hypertension Lung disease Psychiatric illness Denies family history of Clotting disorder Dementia Hyperlipidemia Chronic kidney disease (CKD) Suicide Anesthesia complication Cancer Stroke Social History Smoking and tobacco/nicotine status: former use of tobacco/nicotine Quit status (tobacco/nicotine): has quit using Year quit tobacco: 1981 Former quit date comment: smoked 40+ years Alcohol intake: former Substance/Drug Use: never Vitals/I&O/Wt Last Vital Signs Temp 98.0 F 06/15/23 13:24 Pulse 86 06/15/23 13:24 Resp 18 06/15/23 13:24 BP 125/76 06/15/23 13:24 Pulse Ox 99 06/15/23 13:24 O2 Del Method Room Air 06/15/23 13:24 Weight last 48 hrs Weight 81.647 kg Physical Exam Const: COMMON NORMALS: no acute distress EXAM LIMITATIONS: altered mental status ORIENTATION/CONSCIOUSNESS: Yes awake, Yes oriented to person and Yes confused; not oriented to place and not oriented to time HENMT: COMMON NORMALS: normocephalic HEAD & SCALP: normocephalic Eye: COMMON NORMALS: Equal, round and reactive pupils present and EOMs intact bilaterally Neck/C-Spine: COMMON NORMALS: full ROM and no lymphadenopathy Lymph: LYMPHATIC: no lymphadenopathy noted Chest: COMMONS NORMALS: normal inspection of the chest Resp: COMMON NORMALS: normal respiratory effort, No retractions, No use of accessory muscles and clear to auscultation bilaterally AUSCULTATION: clear to auscultation bilaterally Cardio: COMMON NORMALS: regular rate, regular rhythm, S1 normal heart sound present and S2 normal heart sound present RATE: regular rate RHYTHM: regular rhythm HEART SOUNDS: S1 normal heart sound present and S2 normal heart sound present GI: OTHER: Abdomen is soft, distended, bowel sounds present in all 4 quadrants, no guarding, no rebound, no rigidity, no pain with palpation of all 4 quadrants, Extremity: COMMON NORMALS: no calf tenderness and no pedal edema Neuro: OTHER: Does not follow neurologic testing does have spontaneous upper and lower extremities movement Data 06/15/23 14:00 06/15/23 14:00 A&P Assessment and plan (1) Acute hepatic encephalopathy: (2) Hyperammonemia: (3) Acute encephalopathy: (4) Esophageal varices: Qualifiers: Esophageal varices bleeding: with bleeding Esophageal varices type: secondary Qualified Code(s): I85.11 - Secondary esophageal varices with bleeding (5) Cirrhosis: Qualifiers: Ascites presence: with ascites Hepatic cirrhosis type: unspecified hepatic cirrhosis Qualified Code(s): K74.60 - Unspecified cirrhosis of liver; R18.8 - Other ascites (6) Diabetes 1.5, managed as type 2: (7) Iron deficiency anemia secondary to blood loss (chronic): (8) Thrombocytopenia, unspecified: (9) Anemia: (10) Liver cirrhosis secondary to DELACRUZ: Plan Acute encephalopathy, ? Likely secondary to hepatic encephalopathy, hyperammonemia, ? Possible SBP? ? Plan, ? CT scan abdomen pelvis, ? 1 dose of rectal lactulose, ? When mentation improves resume p.o. lactulose, ? Rifaximin, ? Sputum cultures, blood cultures, ? X-ray chest, ? Head CT, ? CRP, Pro-John, alcohol level, drug screen, ? ABG ? Monitor ammonia levels ? Continue Lasix, spironolactone, ? Lactic acid is 3.3, monitor, ? Gentle IV hydration ? Anemia, history of esophageal varices, history of iron deficiency anemia, iron studies, ? Patient is full code ? 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 T. bili 1.4, ammonia 151, total protein 5.9 albumin 3.3, creatinine 1.2 Hypothyroidism, resume levothyroxine check TSH Type 2 diabetes mellitus, low-dose sliding scale Attestations Medical Necessity Statement*: Patient requires hospitalization, inpatient, greater than 2 midnights, for acute encephalopathy, hyperammonemia, anemia Diagnoses Acute hepatic encephalopathy K72.00 Hyperammonemia E72.20 Acute encephalopathy G93.40 Esophageal varices I85.11 Esophageal varices bleeding: with bleeding Esophageal varices type: secondary Cirrhosis K74.60; R18.8 Ascites presence: with ascites Hepatic cirrhosis type: unspecified hepatic cirrhosis Diabetes 1.5, managed as type 2 E13.9 Iron deficiency anemia secondary to blood loss (chronic) D50.0 Thrombocytopenia, unspecified D69.6 Anemia D64.9 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
[2023-06-15 17:59] LABS: ABG PCO2 23.4 mmHg (35-45); ABG PH Result 7.46 (7.35-7.45); Base Excess ABG -5.8 mmol/L (-2.0-2.0); Blood Gas Allen Test Pos; Blood Gas Operator Identificat glc; Blood Gas Sample Site Radial, right; Blood Gas Sample Type Arterial; HCO3 ABG 16.7 mmol/L (22-26); Oxygen Device ROOM AIR; PO2 ABG 91.6 mmHg (80.0-100.0); PO2 FiO2 Ratio Arterial Blood 0
[2023-06-15 18:09] LABS: Lactic Acid level (Lactate) 3.1 mmol/L (0.5-2.2)
[2023-06-15 18:09] LABS: Ferritin 49 ng/mL (30-400); Iron 27 ug/dL (59-158)
[2023-06-15 18:12] LABS: Alcohol Level < 10 mg/dL (0-10)
[2023-06-15 18:16] LABS: Procalcitonin 0.06 ng/mL (0-0.5)
[2023-06-15 19:39] VITALS: BP 127/77; PULSE 81; O2SAT 99
[2023-06-15 20:00] VITALS: BP 119/66; PULSE 71; RESP 17; TEMP 36.4; O2SAT 98
[2023-06-15 20:39] LABS: Thyroid Stimulating Hormone 5.05 uIU/mL (0.27-4.20)
[2023-06-15] MEDS: lactulose oral liq 20 gm/30 mL UDC 200 GM PR (21:02)
[2023-06-15] MEDS: midodrine 5 mg TABLET 25 MG PO (21:02)
[2023-06-15] MEDS: pantoprazole 40 mg SDV IVP (21:02)
[2023-06-15] MEDS: sodium chloride 0.9% 1,000 ML 50 ML IV (21:03)
[2023-06-15] MEDS: albumin 25 G/100 ML BAG 60 G IV (21:03)
[2023-06-15] MEDS: piperacillin-tazobactam 3.375 GM in sodium chloride 0.9% (plus) 50 ML IV (21:06)
[2023-06-15 21:28] VITALS: O2SAT 98
[2023-06-15 21:42] LABS: Glucose Point of Care 135 mg/dL (70-110)
[2023-06-15 22:51] LABS: Amphetamines Screen Urine Negative (Negative); Barbiturates Screen Urine Negative (Negative); Benzodiazepines Screen Urine Negative (Negative); Cocaine Screen Urine Negative (Negative); Opiate Screen Urine Negative (Negative); PCP Screen Urine Negative (Negative); THC Screen Urine Negative (Negative)
[2023-06-15 23:16] VITALS: BP 117/65; PULSE 69; RESP 17; TEMP 36.5; O2SAT 98
[2023-06-16 02:28] LABS: Basophils # 0.1 10^3/uL (0.0-0.1); Basophils % 1.8 %; Eosinophils # 0.3 10^3/uL (0.0-0.8); Eosinophils % 6.5 %; Lymphocytes # 0.8 10^3/uL (0.8-4.8); Lymphocytes % 19.5 %; Mean Corpuscular HGB Conc 30.4 g/dL (30-55); Mean Corpuscular Hemoglobin 28.9 pg (27-33); Mean Corpuscular Volume 95.2 fl (82-101); Monocytes # 0.7 10^3/uL (0.2-0.9); Monocytes % 17.3 %; Neutrophils # 2.19 10^3/uL (1.8-7.7); Neutrophils % 54.6 %; Nucleated Red Blood Cells % 0 %; Platelet Count 122 10^3/cmm (157-399); Red Blood Count 2.94 10^6/uL (3.85-5.65); Red Cell Distribution Width 16.6 % (12.1-15.1)
[2023-06-16 02:36] LABS: Partial Thromboplastin Time 38.6 SECONDS (23.9-36.7)
[2023-06-16 02:37] LABS: Ammonia 148 umol/L (16-60)
[2023-06-16 02:41] LABS: Lactic Sepsis W/Reflex 1.8 mmol/L (0.5-2.2)
[2023-06-16 02:44] LABS: Alanine Aminotransferase 23 U/L (0-41); Albumin Level 3.1 g/dL (3.5-5.2); Alkaline Phosphatase 70 U/L (40-130); Anion Gap 16.1 (5-19); Aspartate Amino Transferase 29 U/L (0-40); Blood Urea Nitrogen 17 mg/dL (8-23); Calcium 8.8 mg/dL (8.5-10.5); Carbon Dioxide 17 mmol/L (22-29); Chloride 110 mmol/L (98-107); Creatinine Clr Calc Pharmacy 81.7182; Globulin 2.2 g/dL (1.3-4.6); Glomerular Filtration Rate 74.5 mL/min (90-130); Glucose 125 mg/dL (65-115); Magnesium 1.9 mg/dL (1.7-2.3); Osmolality Calculated 291 mOsm/kg (285-295); Phosphorus 3.5 mg/dL (2.5-4.5); Potassium 4.1 mmol/L (3.5-5.1); Sodium 139 mmol/L (136-145); Total Bilirubin 1.8 mg/dL (0.15-1.2); Total Protein 5.3 g/dL (6.6-8.7)
[2023-06-16 04:00] VITALS: BP 169/76; PULSE 96; RESP 17; TEMP 37.3; O2SAT 97
[2023-06-16] MEDS: piperacillin-tazobactam 3.375 GM in sodium chloride 0.9% (plus) 50 ML IV ×3 (04:07→23:14)
[2023-06-16] MEDS: lactulose oral liq 20 gm/30 mL UDC PO (04:07)
[2023-06-16 06:00] VITALS: BMI 29.3
[2023-06-16 07:33] VITALS: BP 119/67; PULSE 69; RESP 16; TEMP 36.4; O2SAT 98
[2023-06-16 07:48] LABS: Glucose Point of Care 148 mg/dL (70-110)
[2023-06-16] MEDS: spironolactone 25 mg Tablet 100 MG PO (10:05)
[2023-06-16] MEDS: midodrine 5 mg TABLET 25 MG PO ×2 (10:05→17:30)
[2023-06-16] MEDS: levothyroxine 25 mcg Tablet PO (10:06)
[2023-06-16] MEDS: FUROsemide 40 mg Tablet PO (10:06)
[2023-06-16] MEDS: lactulose oral liq 20 gm/30 mL UDC 30 GM PO ×3 (10:07→20:09)
[2023-06-16 11:48] VITALS: BP 127/70; PULSE 58; RESP 14; TEMP 36.7; O2SAT 98
[2023-06-16 11:55] LABS: Glucose Point of Care 180 mg/dL (70-110)
--- NOTE | 2023-06-16 14:33 | P.PN_ITS ---
Subjective 2 Subjective: Patient was seen this morning, he is sitting up in bed, is at bedside he is alert to person, to place, not to time he can follow commands, alert and awake, tells me that his mentation significantly improved, he does have some mild asterixis Vitals/I&O/Wt Last Vital Signs Temp 98.0 F 06/16/23 11:48 Pulse 58 L 06/16/23 11:48 Resp 14 06/16/23 11:48 BP 127/70 06/16/23 11:48 Pulse Ox 98 06/16/23 11:48 O2 Del Method Room Air 06/16/23 11:48 06/15/23 06/16/23 06/16/23 22:59 06:59 14:59 Intake Total 150 / 150 Output Total 350 / 350 Balance 150 / 150 -350 / -350 Weight last 48 hrs Weight 100.868 kg Weight 81.647 kg Physical Exam 2 Const: COMMON NORMALS: no acute distress ORIENTATION/CONSCIOUSNESS: Yes awake, Yes oriented to person and Yes oriented to place; not oriented to time Resp: COMMON NORMALS: normal respiratory effort, No retractions, No use of accessory muscles and clear to auscultation bilaterally AUSCULTATION: clear to auscultation bilaterally Cardio: COMMON NORMALS: regular rate, regular rhythm, S1 normal heart sound present and S2 normal heart sound present RATE: regular rate RHYTHM: r egular rhythm HEART SOUNDS: S1 normal heart sound present and S2 normal heart sound present GI: COMMON NORMALS: Normal to inspection, nondistended, normoactive bowel sounds present and non-tender Extremity: COMMON NORMALS: no pedal edema Neuro: SENSORIUM/ORIENTATION: Yes oriented to person, Yes oriented to place and No oriented to time Psych: COMMON NORMALS: mental status grossly normal Data 06/16/23 01:51 06/16/23 01:51 Micro: Microbiology 06/15/23 17:41 Blood Culture - Preliminary Blood SPECIMEN COLLECTED 06/15/23 17:31 Blood Culture - Preliminary Blood SPECIMEN COLLECTED A&P Assessment and plan (1) Acute hepatic encephalopathy: (2) Hyperammonemia: (3) Acute encephalopathy: (4) Esophageal varices: Qualifiers: Esophageal varices bleeding: with bleeding Esophageal varices type: s econdary Qualified Code(s): I85.11 - Secondary esophageal varices with bleeding (5) Cirrhosis: Qualifiers: Ascites presence: with ascites Hepatic cirrhosis type: unspecified hepatic cirrhosis Qualified Code(s): K74.60 - Unspecified cirrhosis of liver; R18.8 - Other ascites (6) Diabetes 1.5, managed as type 2: (7) Iron deficiency anemia secondary to blood loss (chronic): (8) Thrombocytopenia, unspecified: (9) Anemia: (10) 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: Plan Acute encephalopathy, ? Likely secondary to hepatic encephalopathy, hyperammonemia, ? Possible SBP? On the clinic, CT scan abdomen pelvis, no significant ascites, afebrile, no significant leukocytosis, CRP within normal's, Pro-John within normal limits ? Plan, ? 1 dose of rectal lactulose, ? p.o. lactulose, ? Rifaximin, ? Sputum cultures, blood cultures, ? Head CT, within normal limits ? Monitor ammonia levels ? Continue Lasix, spironolactone, ? Lactic acid is 3.3, monitor, ? Gentle IV hydration ? Anemia, history of esophageal varices, history of iron deficiency anemia, iron studies, ? Patient is full code ? SCDs for DVT prophylaxis, Lovenox relatively contraindicated given his history of anemia, GI bleed, esophageal varices History of liver cirrhosis secondary to Sorensen, INR 1.42, ? T. bili 1.4, ammonia 151, total protein 5.9 albumin 3.3, creatinine 1.2 Hypothyroidism, resume levothyroxine check TSH 5 Type 2 diabetes mellitus, low-dose sliding scale Attestations 2 Medical Necessity Statement*: Patient requires hospitalization for hepatic encephalopathy hyperammonemia Diagnoses Acute hepatic encephalopathy K72.00 Hyperammonemia E72.20 Acute encephalopathy G93.40 Esophageal varices I85.11 Esophageal varices bleeding: with bleeding Esophageal varices type: secondary Cirrhosis K74.60; R18.8 Ascites presence: with ascites Hepatic cirrhosis type: unspecified hepatic cirrhosis Diabetes 1.5, managed as type 2 E13.9 Iron deficiency anemia secondary to blood loss (chronic) D50.0 Thrombocytopenia, unspecified D69.6 Anemia D64.9 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
[2023-06-16 15:52] VITALS: PULSE 77; RESP 16; TEMP 36.6; O2SAT 97
[2023-06-16 17:08] LABS: Glucose Point of Care 145 mg/dL (70-110)
--- NOTE | 2023-06-16 17:38 | PC.OT ---
OT evaluation withheld this date per nursing request, patient too sleep (as per PT, patient has very high ammonia levels). To attempt OT evaluation on a later date.
[2023-06-16] MEDS: sodium chloride 0.9% 1,000 ML 50 ML IV (19:20)
[2023-06-16 20:00] VITALS: BP 157/74; PULSE 63; RESP 17; TEMP 36.9; O2SAT 95
[2023-06-16] MEDS: pantoprazole 40 mg SDV IVP (20:05)
[2023-06-16 21:55] LABS: Glucose Point of Care 147 mg/dL (70-110)
[2023-06-16 23:44] VITALS: BP 119/69; PULSE 64; RESP 16; TEMP 36.6; O2SAT 95
[2023-06-17] VITALS (7 sets, daily range): BP systolic 113–137; BP diastolic 62–76; PULSE 62–86; RESP 16–18; TEMP 36.4–36.8; O2SAT 94–100
[2023-06-17] MEDS: lactulose oral liq 20 gm/30 mL UDC 30 GM PO (02:55)
[2023-06-17 03:44] LABS: Basophils # 0.1 10^3/uL (0.0-0.1); Basophils % 2.8 %; Eosinophils # 0.3 10^3/uL (0.0-0.8); Eosinophils % 6.5 %; Hematocrit 30.6 % (37-53); Lymphocytes # 0.9 10^3/uL (0.8-4.8); Lymphocytes % 18.1 %; Mean Corpuscular Hemoglobin 28.9 pg (27-33); Mean Platelet Volume 10.5 fL (7.4-10.4); Monocytes # 0.9 10^3/uL (0.2-0.9); Monocytes % 18.3 %; Neutrophils # 2.67 10^3/uL (1.8-7.7); Neutrophils % 54.3 %; Nucleated Red Blood Cells % 0 %; Platelet Count 176 10^3/cmm (157-399); Red Blood Count 3.29 10^6/uL (3.85-5.65); Red Cell Distribution Width 16.6 % (12.1-15.1); White Blood Count 4.92 10^3/uL (3.29-11.43)
[2023-06-17 03:48] LABS: Ammonia 138 umol/L (16-60)
[2023-06-17 03:49] LABS: Partial Thromboplastin Time 35.7 SECONDS (23.9-36.7)
[2023-06-17 04:05] LABS: Alanine Aminotransferase 26 U/L (0-41); Albumin Level 3.1 g/dL (3.5-5.2); Alkaline Phosphatase 74 U/L (40-130); Anion Gap 19.3 (5-19); Aspartate Amino Transferase 34 U/L (0-40); Blood Urea Nitrogen 17 mg/dL (8-23); Calcium 8.5 mg/dL (8.5-10.5); Carbon Dioxide 16 mmol/L (22-29); Chloride 110 mmol/L (98-107); Globulin 2.4 g/dL (1.3-4.6); Glomerular Filtration Rate 46.7 mL/min (90-130); Glucose 118 mg/dL (65-115); Magnesium 1.8 mg/dL (1.7-2.3); Osmolality Calculated 295 mOsm/kg (285-295); Phosphorus 4.2 mg/dL (2.5-4.5); Potassium 4.3 mmol/L (3.5-5.1); Sodium 141 mmol/L (136-145); Total Bilirubin 2.5 mg/dL (0.15-1.2); Total Protein 5.5 g/dL (6.6-8.7)
[2023-06-17 06:38] LABS: Glucose Point of Care 170 mg/dL (70-110)
[2023-06-17] MEDS: piperacillin-tazobactam 3.375 GM in sodium chloride 0.9% (plus) 50 ML IV ×2 (06:40→16:04)
[2023-06-17] MEDS: insulin lispro 100 unit/1 mL SUBCUT ×2 (09:45→13:16)
[2023-06-17] MEDS: FUROsemide 40 mg Tablet PO (09:46)
[2023-06-17] MEDS: levothyroxine 25 mcg Tablet PO (09:47)
[2023-06-17] MEDS: spironolactone 25 mg Tablet 100 MG PO (09:48)
[2023-06-17] MEDS: midodrine 5 mg TABLET 25 MG PO ×2 (09:48→18:09)
[2023-06-17] MEDS: lactulose oral liq 20 gm/30 mL UDC 45 GM PO ×3 (09:57→18:08)
[2023-06-17 12:20] LABS: Glucose Point of Care 206 mg/dL (70-110)
--- NOTE | 2023-06-17 13:57 | P.PN_ITS ---
Subjective 2 Subjective: Patient was seen this morning, he is alert to person, to place, not to time he can follow commands continues to have episodes of confusion, and mental cloudiness he tells me, serum sodium levels 138 tells me that she has been giving him 45 g of lactulose every 4 hours at home, will resume that dose Vitals/I&O/Wt Last Vital Signs Temp 98.1 F 06/17/23 11:01 Pulse 63 06/17/23 11:01 Resp 16 06/17/23 11:01 BP 137/76 06/17/23 11:01 Pulse Ox 100 06/17/23 11:01 O2 Del Method Room Air 06/17/23 11:01 06/16/23 06/17/23 06/17/23 22:59 06:59 14:59 Intake Total 1050 / 1100 50 / 1150 290 / 290 Output Total 150 / 500 350 / 850 Balance 900 / 600 -300 / 300 290 / 290 Weight last 48 hrs Weight 96.524 kg Weight 100.868 kg Physical Exam 2 Const: COMMON NORMALS: no acute distress Resp: COMMON NORMALS: normal respiratory effort, No retractions, No use of accessory muscles and clear to auscultation bilaterally AUSCULTATION: clear to auscultation bilaterally Cardio: COMMON NORMALS: regular rate, regular rhythm, S1 normal heart sound present and S2 normal heart sound present RATE: regular rate RHYTHM: r egular rhythm HEART SOUNDS: S1 normal heart sound present and S2 normal heart sound present GI: COMMON NORMALS: Normal to inspection, nondistended, normoactive bowel sounds present and non-tender Extremity: COMMON NORMALS: no pedal edema Psych: COMMON NORMALS: mental status grossly normal Data 06/17/23 03:18 06/17/23 03:18 Micro: Microbiology 06/15/23 17:41 Blood Culture - Preliminary Blood NEGATIVE TO DATE 06/15/23 17:31 Blood Culture - Preliminary Blood NEGATIVE TO DATE A&P Assessment and plan (1) Acute hepatic encephalopathy: (2) Hyperammonemia: (3) Acute encephalopathy: (4) Esophageal varices: Qualifiers: Esophageal varices bleeding: with bleeding Esophageal varices type: s econdary Qualified Code(s): I85.11 - Secondary esophageal varices with bleeding (5) Cirrhosis: Qualifiers: Ascites presence: with ascites Hepatic cirrhosis type: unspecified hepatic cirrhosis Qualified Code(s): K74.60 - Unspecified cirrhosis of liver; R18.8 - Other ascites (6) Diabetes 1.5, managed as type 2: (7) Iron deficiency anemia secondary to blood loss (chronic): (8) Thrombocytopenia, unspecified: (9) Anemia: (10) 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: Plan Acute encephalopathy, ? Likely secondary to hepatic encephalopathy, hyperammonemia, ? Possible SBP? On the clinic, CT scan abdomen pelvis, no significant ascites, afebrile, no significant leukocytosis, CRP within normal's, Pro-John within normal limits ? Plan, ? 1 dose of rectal lactulose, ? Increase lactulose to 45 g every 6 hours ? Rifaximin, ? Sputum cultures, blood cultures, ? Head CT, within normal limits ? Monitor ammonia levels ? Continue Lasix, spironolactone, ? Lactic acid is 3.3, monitor, ? Gentle IV hydration ? Anemia, history of esophageal varices, history of iron deficiency anemia, iron studies, ? Patient is full code ? SCDs for DVT prophylaxis, Lovenox relatively contraindicated given his history of anemia, GI bleed, esophageal varices History of liver cirrhosis secondary to Sorensen, INR 1.42, ? T. bili 1.4, ammonia 151, total protein 5.9 albumin 3.3, creatinine 1.2 Hypothyroidism, resume levothyroxine check TSH 5 Type 2 diabetes mellitus, low-dose sliding scale Attestations 2 Medical Necessity Statement*: Patient requires hospitalization for hepatic encephalopathy, hyperammonemia Diagnoses Acute hepatic encephalopathy K72.00 Hyperammonemia E72.20 Acute encephalopathy G93.40 Esophageal varices I85.11 Esophageal varices bleeding: with bleeding Esophageal varices type: secondary Cirrhosis K74.60; R18.8 Ascites presence: with ascites Hepatic cirrhosis type: unspecified hepatic cirrhosis Diabetes 1.5, managed as type 2 E13.9 Iron deficiency anemia secondary to blood loss (chronic) D50.0 Thrombocytopenia, unspecified D69.6 Anemia D64.9 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
[2023-06-17] MEDS: sodium chloride 0.9% 1,000 ML 50 ML IV (14:38)
[2023-06-17 18:01] LABS: Glucose Point of Care 129 mg/dL (70-110)
[2023-06-17 20:52] LABS: Glucose Point of Care 152 mg/dL (70-110)
[2023-06-17] MEDS: pantoprazole 40 mg SDV IVP (22:19)
[2023-06-18] VITALS: BP 107/63; PULSE 65; RESP 17; TEMP 37; O2SAT 95
[2023-06-18] MEDS: piperacillin-tazobactam 3.375 GM in sodium chloride 0.9% (plus) 50 ML IV ×2 (00:21→06:24)
[2023-06-18] MEDS: lactulose oral liq 20 gm/30 mL UDC 45 GM PO ×2 (00:22→06:24)
[2023-06-18 04:00] VITALS: BP 133/79; PULSE 87; RESP 18; TEMP 36.4; O2SAT 97
[2023-06-18 04:25] LABS: Basophils # 0.1 10^3/uL (0.0-0.1); Basophils % 2.7 %; Eosinophils # 0.4 10^3/uL (0.0-0.8); Eosinophils % 9.8 %; Hematocrit 30.9 % (37-53); Lymphocytes # 0.8 10^3/uL (0.8-4.8); Mean Corpuscular HGB Conc 30.7 g/dL (30-55); Mean Corpuscular Hemoglobin 29.1 pg (27-33); Mean Corpuscular Volume 94.8 fl (82-101); Mean Platelet Volume 10.4 fL (7.4-10.4); Monocytes # 0.9 10^3/uL (0.2-0.9); Monocytes % 22.7 %; Neutrophils # 1.84 10^3/uL (1.8-7.7); Neutrophils % 44.8 %; Nucleated Red Blood Cells % 0 %; Platelet Count 144 10^3/cmm (157-399); Red Blood Count 3.26 10^6/uL (3.85-5.65)
[2023-06-18 04:41] LABS: Partial Thromboplastin Time 34.7 SECONDS (23.9-36.7)
[2023-06-18 04:45] LABS: Ammonia 50 umol/L (16-60)
[2023-06-18 04:46] LABS: Alanine Aminotransferase 27 U/L (0-41); Alkaline Phosphatase 75 U/L (40-130); Anion Gap 16.1 (5-19); Aspartate Amino Transferase 38 U/L (0-40); Blood Urea Nitrogen 17 mg/dL (8-23); Calcium 8.6 mg/dL (8.5-10.5); Carbon Dioxide 16 mmol/L (22-29); Chloride 112 mmol/L (98-107); Globulin 2.3 g/dL (1.3-4.6); Glomerular Filtration Rate 55.1 mL/min (90-130); Glucose 140 mg/dL (65-115); Osmolality Calculated 294 mOsm/kg (285-295); Potassium 4.1 mmol/L (3.5-5.1); Sodium 140 mmol/L (136-145); Total Bilirubin 1.7 mg/dL (0.15-1.2); Total Protein 5.3 g/dL (6.6-8.7)
[2023-06-18 05:20] VITALS: PULSE 61
[2023-06-18 06:25] LABS: Glucose Point of Care 130 mg/dL (70-110)
[2023-06-18 07:19] VITALS: BP 106/57; PULSE 69; RESP 16; TEMP 36.9; O2SAT 99
[2023-06-18] MEDS: midodrine 5 mg TABLET 25 MG PO (08:19)
[2023-06-18] MEDS: FUROsemide 40 mg Tablet PO (08:19)
[2023-06-18] MEDS: levothyroxine 25 mcg Tablet PO (08:19)
[2023-06-18] MEDS: spironolactone 25 mg Tablet 100 MG PO (08:20)
[2023-06-18] MEDS: sodium chloride 0.9% 1,000 ML 50 ML IV (08:20)
--- NOTE | 2023-06-18 09:42 | PC.CHAP ---
Pastoral Care Encounter/Spiritual Assessment Type of Contact [] Declined annealer helper visit [] Patient/Family/Request visit [] Outpatient visit [] Follow-up visit [] Physician referral [] Code/Alert [] Routine visit [] Staff referral [] Actively dying [] Patient sleeping [] Family support [] [] Out of room [] Palliative care [] [x] Receiving care in room [] Pre-surgical visit [] Trauma [] Long length of stay [] ICU visit [] Other: Relational/Emotional Strength [] Patient feels connected with others/family/visitors/staff [] Distress [] Loneliness/isolation [] Abandonment Spirituality of Patient [] Person of Moni [] Attends Congregation of their Moni [] Believes in Prayer [] Reads Bible or Yarsani materials [] There are Spiritual issues to be addressed Client Liaison Interventions [] Prayer [] Active listening [] Non-anxious presence [] Spiritual/emotional support [] Crisis/trauma care [] Spiritual counseling [] Bereavement support [] Provided bereavement packet [] Provided Bible/devotional materials [] Provided toy/stuffed animal, coloring book to patient or family member [] Provided Communion [] Anointing/[place] [] Salvation [] Completed spiritual assessment [] Other: Impact on Illness or Injury [] Angry [] Fearful [] Anxious [] Often cries [] Exhaustion [] Unable to work [] Unable to attend taoist [] Unable to walk/stand [] Unable to read [] Unable to drive [] Unable to eat/drink [] Unable to sleep [] Unable to be with family [] Patient intubated [] Other: Summary Time spent with patient
[2023-06-18 11:01] VITALS: BP 113/55; PULSE 69; RESP 17; TEMP 36.7; O2SAT 99
[2023-06-18 11:26] LABS: Glucose Point of Care 162 mg/dL (70-110)
--- NOTE | 2023-06-18 12:13 | PM.DCS ---
Discharge Providers Date of Admission: 06/15/23 15:45 Date of Discharge: June 18, 2023 Attending Provider at Admission: Per Will MD Attending Provider at Discharge: Per Will MD Primary Care Provider: Floresita Bustillo DO Diagnoses at Discharge Discharge Diagnosis (1) Acute hepatic encephalopathy: Status: Resolved (2) Hyperammonemia: Status: Acute (3) Acute encephalopathy: Status: Resolved (4) Esophageal varices: Status: Inactive Qualifiers: Esophageal varices bleeding: with bleeding Esophageal varices type: secondary Qualified Code(s): I85.11 - Secondary esophageal varices with bleeding (5) Cirrhosis: Status: Inactive Qualifiers: Ascites presence: with ascites Hepatic cirrhosis type: unspecified hepatic cirrhosis Qualified Code(s): K74.60 - Unspecified cirrhosis of liver; R18.8 - Other ascites (6) Diabetes 1.5, managed as type 2: Status: Acute (7) Iron deficiency anemia secondary to blood loss (chronic): Status: Acute (8) Thrombocytopenia, unspecified: Status: Acute (9) Anemia: Status: Acute (10) 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 Currently patient alert to person, not to place, not to time he can follow some commands but is quite drowsy and falls back asleep. Patient's son is at bedside, he tells me for the last 48 hours, his father has been increasingly weak, fatigued, poor appetite, increasingly confused, he believes that his father is taking his lactulose and rifaximin but is not 100% sure, no fevers, no chills, no cough, no abdominal pain has been reported, he has been weak for the last few days patient presented to [facility] for acute encephalopathy, hepatic encephalopathy, hyperammonemia, patient received inpatient lactulose, rectal lactulose, rifaximin, overall clinically improved, mentation back to baseline, alert oriented x3, discharged on lactulose 45 g every 6 hours, can wean as tolerated, follow-up with primary care provider as outpatient, hemoglobin needs to be monitored outpatient through primary care, Physical Exam Const: COMMON NORMALS: no acute distress and patient oriented x3 Resp: COMMON NORMALS: normal respiratory effort, No retractions, No use of accessory muscles and clear to auscultation bilaterally AUSCULTATION: clear to auscultation bilaterally Cardio: COMMON NORMALS: regular rate, regular rhythm, S1 normal heart sound present and S2 normal heart sound present RATE: regular rate RHYTHM: regular rhythm HEART SOUNDS: S1 normal heart sound present and S2 normal heart sound present GI: COMMON NORMALS: Normal to inspection, nondistended, normoactive bowel sounds present and non-tender Extremity: COMMON NORMALS: no pedal edema Neuro: COMMON NORMALS: patient oriented x3 Psych: COMMON NORMALS: mental status grossly normal Discharge Data Studies Completed and Pending Completed Studies During Hospitalization Category Date Time Status CT abdomen pelvis wo con [id number] Stat Cat Scan 06/15/23 16:[address] head wo con* [id number] Stat Cat Scan 06/15/23 16:56 Completed XR chest 1V portable [id number] Stat Exams 06/15/23 16:56 Completed Pending at discharge Category Date Time Status Blood Culture Stat Lab 06/15/23 17:41 Results Occult Blood Stool [Immunochemical Fecal OCB] Routine Lab 06/15/23 20:00 Uncollected Radiology Impressions Abdomen/Pelvis CT 06/15/23 16:56 IMPRESSION: No acute abdominal findings. Mild age-indeterminate compression deformity of L3, new from prior comparison. Other chronic/incidental findings as above. Chest X-Ray 06/15/23 16:56 IMPRESSION: No acute findings. Head CT 06/15/23 16:56 IMPRESSION: Negative for intracranial hemorrhage or mass effect. Laboratory Results WBC 4.10 10^3/uL (3.29-11.43) 06/18/23 04:14 RBC 3.26 10^6/uL (3.85-5.65) L 06/18/23 04:14 Hgb 9.50 g/dL (11.27-16.99) L 06/18/23 04:14 Hct 30.9 % (37-53) L 06/18/23 04:14 MCV 94.8 fl (82-101) 06/18/23 04:14 MCH 29.1 pg (27-33) 06/18/23 04:14 MCHC 30.7 g/dL (30-55) 06/18/23 04:14 RDW 16.0 % (12.1-15.1) H 06/18/23 04:14 Plt Count 144 10^3/cmm (157-399) L 06/18/23 04:14 MPV 10.4 fL (7.4-10.4) 06/18/23 04:14 Neut % (Auto) 44.8 % 06/18/23 04:14 Lymph % (Auto) 20.0 % 06/18/23 04:14 [place] % (Auto) 22.7 % 06/18/23 04:14 Eos % (Auto) 9.8 % 06/18/23 04:14 Baso % (Auto) 2.7 % 06/18/23 04:14 Neut # (Auto) 1.84 10^3/uL (1.8-7.7) 06/18/23 04:14 Lymph # (Auto) 0.8 10^3/uL (0.8-4.8) 06/18/23 04:14 [place] # (Auto) 0.9 10^3/uL (0.2-0.9) 06/18/23 04:14 Eos # (Auto) 0.4 10^3/uL (0.0-0.8) 06/18/23 04:14 Baso # (Auto) 0.1 10^3/uL (0.0-0.1) 06/18/23 04:14 Nucleated RBC % (auto) 0 % 06/18/23 04:14 Nucleated RBCs # 0.0 /100WBC 06/18/23 04:14 PT 17.80 SECONDS (12.1-14.9) H 06/15/23 14:00 INR 1.42 (0.8-1.2) H 06/15/23 14:00 APTT 34.7 SECONDS (23.9-36.7) 06/18/23 04:14 Specimen Type Arterial 06/15/23 17:47 Sample Site Radial, right 06/15/23 17:47 ABG pH 7.46 (7.35-7.45) H 06/15/23 17:47 ABG pCO2 23.4 mmHg (35-45) L 06/15/23 17:47 ABG pO2 91.6 mmHg (80.0-100.0) 06/15/23 17:47 ABG PO2/FiO2 Ratio 0 06/15/23 17:47 ABG HCO3 16.7 mmol/L (22-26) L 06/15/23 17:47 ABG Base Excess -5.8 mmol/L (-2.0-2.0) L 06/15/23 17:47 [place]y Test Pos 06/15/23 17:47 Hematocrit 30.0 % (42-52) L 06/15/23 17:47 O2 Delivery Device Room air 06/15/23 17:47 FiO2 21.0 % 06/15/23 17:47 Fruit I Farmworker ID glc 06/15/23 17:47 Sodium 140 mmol/L (136-145) 06/18/23 04:14 Potassium 4.1 mmol/L (3.5-5.1) 06/18/23 04:14 Chloride 112 mmol/L (98-107) H 06/18/23 04:14 Carbon Dioxide 16 mmol/L (22-29) L 06/18/23 04:14 Anion Gap 16.1 (5-19) 06/18/23 04:14 BUN 17 mg/dL (8-23) 06/18/23 04:14 Creatinine 1.3 mg/dL (0.7-1.2) H 06/18/23 04:14 GFR Calculation 55.1 mL/min (90-130) L 06/18/23 04:14 Glucose 140 mg/dL (65-115) H 06/18/23 04:14 POC Glucose 162 mg/dL (70-110) H 06/18/23 11:00 Calculated Osmolality 294 mOsm/kg (285-295) 06/18/23 04:14 Lactic Acid 1.8 mmol/L (0.5-2.2) 06/16/23 01:51 Lactic Acid (Sepsis) 3.1 mmol/L (0.5-2.2) H 06/15/23 17:41 Calcium 8.6 mg/dL (8.5-10.5) 06/18/23 04:14 Phosphorus 4.0 mg/dL (2.5-4.5) 06/18/23 04:14 Magnesium 2.0 mg/dL (1.7-2.3) 06/18/23 04:14 Iron 27 ug/dL (59-158) L 06/15/23 17:31 Ferritin 49 ng/mL (30-400) 06/15/23 17:31 Total Bilirubin 1.7 mg/dL (0.15-1.2) H 06/18/23 04:14 AST 38 U/L (0-40) 06/18/23 04:14 ALT 27 U/L (0-41) 06/18/23 04:14 Alkaline Phosphatase 75 U/L (40-130) 06/18/23 04:14 Ammonia 50 umol/L (16-60) 06/18/23 04:14 C-Reactive Protein 3.0 mg/L (0.0-4.9) 06/15/23 17:31 Total Protein 5.3 g/dL (6.6-8.7) L 06/18/23 04:14 Albumin 3.0 g/dL (3.5-5.2) L 06/18/23 04:14 Globulin 2.3 g/dL (1.3-4.6) 06/18/23 04:14 Lipase 23 U/L (13-60) 06/15/23 14:00 Procalcitonin 0.06 ng/mL (0-0.5) 06/15/23 17:31 TSH 5.05 uIU/mL (0.27-4.20) H 06/15/23 17:31 Urine Color Yellow (Yellow) 06/15/23 15:01 Urine Appearance Clear (CLEAR) 06/15/23 15:01 Urine pH 5 (5-7) 06/15/23 15:01 Ur Specific [place] 1.015 (1.005-1.030) 06/15/23 15:01 Urine Protein Neg (Negative) 06/15/23 15:01 Urine Glucose (UA) Norm (Normal) 06/15/23 15:01 Urine Ketones Negative (Negative) 06/15/23 15:01 Urine Blood Neg (Negative) 06/15/23 15:01 Urine Nitrate Negative (Negative) 06/15/23 15:01 Urine Bilirubin Neg (Negative) 06/15/23 15:01 Urine Urobilinogen Norm mg/dL (Negative) 06/15/23 15:01 Ur Leukocyte Esterase Negative (Negative) 06/15/23 15:01 Urine Opiates Screen Negative ng/mL (Negative) 06/15/23 19:49 Ur Barbiturates Screen Negative ng/mL (Negative) 06/15/23 19:49 Ur Phencyclidine Scrn Negative ng/mL (Negative) 06/15/23 19:49 Ur Amphetamines Screen Negative ng/mL (Negative) 06/15/23 19:49 U Benzodiazepines Scrn Negative ng/mL (Negative) 06/15/23 19:49 Urine Cocaine Screen Negative ng/mL (Negative) 06/15/23 19:49 U Marijuana (THC) Screen Negative ng/mL (Negative) 06/15/23 19:49 Ethyl Alcohol < 10 mg/dL (0-10) 06/15/23 17:31 Vitals Last Vital Signs Temp 98.1 F 06/18/23 11:01 Pulse 69 06/18/23 11:01 Resp 17 06/18/23 11:01 BP 113/55 06/18/23 11:01 Pulse Ox 99 06/18/23 11:01 O2 Del Method Room Air 06/18/23 11:01 Discharge Plan Discharge Patient Disposition: Home Condition: Stable Prescriptions: New lactulose 20 gram/30 mL Solution 45 g PO Q6H 30 Days Qty: 8100 0RF Continued pantoprazole 40 mg tablet,delayed release (DR/EC) 40 mg PO DAILY ondansetron HCl 4 mg tablet 4 mg PO Q4H PRN (Reason: nausea and vomiting) Qty: 30 0RF lidocaine 5 % adhesive patch,medicated 1 patch topical DAILY PRN (Reason: Pain) Rx Instructions: leave on most painful area for up to 12 hrs spironolactone 100 mg tablet 100 mg PO DAILY ferrous sulfate 325 mg (65 mg iron) tablet 325 mg PO BID folic acid 20 mg capsule 20 mg PO DAILY levothyroxine 25 mcg tablet 25 mcg PO DAILY@0800 insulin aspart U-100 [Novolog U-100 Insulin aspart] 100 unit/mL solution See Rx Instructions SUBCUT TID Rx Instructions: Sliding scale subcutaneously three times daily; SLIDING SCALE fluticasone propionate [Flonase Allergy Relief] 50 mcg/actuation [place],Suspension 2 spray INTRANASAL DAILY PRN (Reason: Allergy Symptoms) furosemide [Lasix] 40 mg Tablet 40 mg PO DAILY One-A-Day Men VitaCraves 200 mcg Tablet,Chewable 1 tab PO DAILY Xifaxan 550 mg tablet 550 mg PO BID Qty: 90 3RF midodrine 5 mg tablet 25 mg PO BID Rx Instructions: do not give last dose of day after 6PM or within 4 hrs of bedtime Basaglar KwikPen U-100 Insulin 100 unit/mL (3 mL) insulin pen 18 unit SUBCUT QPM betamethasone dipropionate 0.05 % Ointment 1 applic TOPICAL BID PRN (Reason: Rash) Discontinued lactulose [Enulose] 10 gram/15 mL solution See Rx Instructions .ROUTE .COMPLEX Dose Instruction: TAKE 4 OUNCES BY MOUTH EVERY SIX HOURS Rx Instructions: TAKE 4 OUNCES BY MOUTH EVERY SIX HOURS Discharge Orders: Discharge Order (Routine); Ordered 06/18/23 Ordered By: Per Will Referrals: Floresita Bustillo DO [Primary Care Provider] - Discharge Diet: Cardiac Discharge Activity: Resume usual activity Activity Restrictions/Additional Instructions: - Your hemoglobin discharge 9.5, have primary care provider recheck hemoglobin in 1 week, ? Please monitor for elevated ammonia levels, if so please bring back to the emergency room Discharge Attestations Time Spent in Discharge Care*: greater than 30 min Status at Discharge: Cognitive status at discharge: cognitively intact, Behavioral status at discharge: cooperative and independent in ADL's, Quality Metrics Clinical Quality Measures [ No reported AMI, CVA or VTE this stay] Coding Level of Care Code 34202 Total time (in minutes) for Discharge: 45 Diagnoses Acute hepatic encephalopathy K72.00 Hyperammonemia E72.20 Acute encephalopathy G93.40 Esophageal varices I85.11 Esophageal varices bleeding: with bleeding Esophageal varices type: secondary Cirrhosis K74.60; R18.8 Ascites presence: with ascites Hepatic cirrhosis type: unspecified hepatic cirrhosis Diabetes 1.5, managed as type 2 E13.9 Iron deficiency anemia secondary to blood loss (chronic) D50.0 Thrombocytopenia, unspecified D69.6 Anemia D64.9 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
== END 2023-06-18 12:45 | disposition home or self-care (01) | DRG 442 ==
LOC: ER 14:01 → MEDSURG 18:32
PROVIDERS: Nurse Practitioner Family; Admitting Provider Family Medicine; Emergency Provider Family Medicine; PCP Family Medicine; Visit Provider Family Medicine
DX: K76.82 Hepatic encephalopathy (principal); E72.20 Disorder of urea cycle metabolism, unspecified; I85.10 Secondary esophageal varices without bleeding; K76.6 Portal hypertension; K75.81 Nonalcoholic steatohepatitis (NASH); K74.69 Other cirrhosis of liver; G47.33 Obstructive sleep apnea (adult) (pediatric); Z99.89 Dependence on other enabling machines and devices; E03.9 Hypothyroidism, unspecified; K21.9 Gastro-esophageal reflux disease without esophagitis; Z87.891 Personal history of nicotine dependence; I12.9 Hypertensive chronic kidney disease with stage 1 through stage 4 chronic kidney disease, or unspecified chronic kidney disease; E11.22 Type 2 diabetes mellitus with diabetic chronic kidney disease; N18.2 Chronic kidney disease, stage 2 (mild); D69.6 Thrombocytopenia, unspecified; D50.0 Iron deficiency anemia secondary to blood loss (chronic); R27.8 Other lack of coordination
CPT/HCPCS: 36415; 36416; 36600; 70450; 71045; 74176; 80053; 80306; 80307; 81003; 82140; 82728; 82803; 82962; 83540; 83605; 83690; 83735; 84100; 84145; 84443; 85025; 85610; 85730; 86140; 87040; 94664; 96372; 97161; 97165; 97530; 97535; 99285; C9113; J1815; J2543; J7030; P9046

== ENCOUNTER 2023-07-09 14:00 | Oncology outpatient (recurring) (ONCR) | payer MEDICARE, OTHER, SELFPAY ==
[2023-06-24 10:11] VITALS: BP 114/70; PULSE 72; RESP 18; TEMP 36.4; O2SAT 95
[2023-06-24 10:37] LABS: Basophils # 0.1 10^3/uL (0.0-0.1); Basophils % 1.3 %; Eosinophils # 0.4 10^3/uL (0.0-0.8); Eosinophils % 7.3 %; Hematocrit 28.1 % (37-53); Lymphocytes # 0.7 10^3/uL (0.8-4.8); Lymphocytes % 15.3 %; Mean Corpuscular Hemoglobin 28.9 pg (27-33); Mean Corpuscular Volume 93.4 fl (82-101); Mean Platelet Volume 10.7 fL (7.4-10.4); Monocytes # 0.7 10^3/uL (0.2-0.9); Monocytes % 13.6 %; Neutrophils # 2.97 10^3/uL (1.8-7.7); Neutrophils % 62.3 %; Nucleated Red Blood Cells % 0 %; Platelet Count 117 10^3/cmm (157-399); Red Blood Count 3.01 10^6/uL (3.85-5.65); Red Cell Distribution Width 16.3 % (12.1-15.1); White Blood Count 4.77 10^3/uL (3.29-11.43)
[2023-06-24 10:49] LABS: Alanine Aminotransferase 38 U/L (0-41); Albumin Level 3.1 g/dL (3.5-5.2); Alkaline Phosphatase 82 U/L (40-130); Aspartate Amino Transferase 47 U/L (0-40); Blood Urea Nitrogen 15 mg/dL (8-23); Calcium 8.8 mg/dL (8.5-10.5); Carbon Dioxide 20 mmol/L (22-29); Chloride 109 mmol/L (98-107); Globulin 2.4 g/dL (1.3-4.6); Glomerular Filtration Rate 66.8 mL/min (90-130); Glucose 146 mg/dL (65-115); Iron 106 ug/dL (59-158); Osmolality Calculated 287 mOsm/kg (285-295); Percent Saturation 39.1 % (20-50); Sodium 137 mmol/L (136-145); Total Bilirubin 0.9 mg/dL (0.15-1.2); Total Iron Binding Capacity 271 mcg/dl; Total Protein 5.5 g/dL (6.6-8.7); Unsaturated Iron Binding 165 ug/dL (112-347)
[2023-06-24 11:12] LABS: Anion Gap 12.5 (5-19); Potassium 4.5 mmol/L (3.5-5.1)
[2023-07-01 13:02] VITALS: BP 105/60; PULSE 79; RESP 16; TEMP 36.7; O2SAT 97
[2023-07-01 13:34] LABS: Basophils # 0.1 10^3/uL (0.0-0.1); Basophils % 1.8 %; Eosinophils # 0.2 10^3/uL (0.0-0.8); Hematocrit 27.7 % (37-53); Lymphocytes # 0.5 10^3/uL (0.8-4.8); Lymphocytes % 15.9 %; Mean Corpuscular Hemoglobin 29.3 pg (27-33); Mean Corpuscular Volume 94.2 fl (82-101); Mean Platelet Volume 10.7 fL (7.4-10.4); Monocytes # 0.7 10^3/uL (0.2-0.9); Monocytes % 20.4 %; Neutrophils # 1.92 10^3/uL (1.8-7.7); Neutrophils % 56.6 %; Nucleated Red Blood Cells % 0 %; Platelet Count 113 10^3/cmm (157-399); Red Blood Count 2.94 10^6/uL (3.85-5.65); Red Cell Distribution Width 17.7 % (12.1-15.1); White Blood Count 3.39 10^3/uL (3.29-11.43)
[2023-07-09 13:58] VITALS: BP 104/58; PULSE 78; RESP 16; TEMP 36.2; O2SAT 97
[2023-07-09 14:22] LABS: Basophils # 0.1 10^3/uL (0.0-0.1); Basophils % 1.5 %; Eosinophils # 0.3 10^3/uL (0.0-0.8); Eosinophils % 6.4 %; Hematocrit 31.7 % (37-53); Lymphocytes # 0.7 10^3/uL (0.8-4.8); Lymphocytes % 15.1 %; Mean Corpuscular HGB Conc 30.6 g/dL (30-55); Mean Corpuscular Hemoglobin 28.9 pg (27-33); Mean Corpuscular Volume 94.3 fl (82-101); Mean Platelet Volume 9.5 fL (7.4-10.4); Monocytes # 0.7 10^3/uL (0.2-0.9); Monocytes % 14.4 %; Neutrophils # 2.94 10^3/uL (1.8-7.7); Neutrophils % 62.4 %; Nucleated Red Blood Cells % 0 %; Platelet Count 128 10^3/cmm (157-399); Red Blood Count 3.36 10^6/uL (3.85-5.65); Red Cell Distribution Width 16.8 % (12.1-15.1); White Blood Count 4.71 10^3/uL (3.29-11.43)
== END 2023-07-14 23:59 | disposition home or self-care (01) ==
PROVIDERS: PCP Family Medicine; Visit Provider Internal Medicine Medical Oncology
DX: Z53.9 Procedure and treatment not carried out, unspecified reason; D50.0 Iron deficiency anemia secondary to blood loss (chronic)
CPT/HCPCS: 36415; 80053; 83540; 83550; 85025; 99214

== ENCOUNTER 2023-08-12 10:00 | Oncology outpatient (recurring) (ONCR) | payer MEDICARE, OTHER, SELFPAY ==
[2023-07-16 13:50] VITALS: BP 109/58; PULSE 81; RESP 16; TEMP 36.5; O2SAT 94
[2023-07-16 14:20] LABS: Basophils # 0.1 10^3/uL (0.0-0.1); Basophils % 1.6 %; Eosinophils # 0.3 10^3/uL (0.0-0.8); Eosinophils % 5.8 %; Hematocrit 24.7 % (37-53); Lymphocytes # 0.7 10^3/uL (0.8-4.8); Lymphocytes % 16.9 %; Mean Corpuscular HGB Conc 30.8 g/dL (30-55); Mean Corpuscular Hemoglobin 28.7 pg (27-33); Mean Corpuscular Volume 93.2 fl (82-101); Mean Platelet Volume 10.6 fL (7.4-10.4); Monocytes # 0.7 10^3/uL (0.2-0.9); Monocytes % 16.4 %; Neutrophils # 2.56 10^3/uL (1.8-7.7); Neutrophils % 59.1 %; Nucleated Red Blood Cells % 0 %; Platelet Count 119 10^3/cmm (157-399); Red Blood Count 2.65 10^6/uL (3.85-5.65); Red Cell Distribution Width 16.3 % (12.1-15.1); White Blood Count 4.33 10^3/uL (3.29-11.43)
[2023-07-17] VITALS (7 sets, daily range): BP systolic 102–112; BP diastolic 49–65; PULSE 61–68; RESP 16–18; TEMP 36.2–36.8; O2SAT 95–98
[2023-07-17] MEDS: sodium chloride 0.9% 250 mL Bag IV (10:29)
[2023-07-17] MEDS: acetaminophen 325 mg Tablet 650 MG PO (10:30)
[2023-07-17] MEDS: diphenhydrAMINE 25 mg Capsule PO (10:30)
[2023-07-22 14:31] LABS: Basophils # 0.1 10^3/uL (0.0-0.1); Basophils % 1.7 %; Eosinophils # 0.3 10^3/uL (0.0-0.8); Eosinophils % 6.7 %; Hematocrit 31.2 % (37-53); Lymphocytes # 0.8 10^3/uL (0.8-4.8); Lymphocytes % 16.8 %; Mean Corpuscular HGB Conc 31.1 g/dL (30-55); Mean Corpuscular Volume 90.2 fl (82-101); Mean Platelet Volume 10.7 fL (7.4-10.4); Monocytes # 0.7 10^3/uL (0.2-0.9); Monocytes % 13.7 %; Neutrophils # 2.88 10^3/uL (1.8-7.7); Neutrophils % 60.7 %; Nucleated Red Blood Cells % 0 %; Platelet Count 139 10^3/cmm (157-399); Red Blood Count 3.46 10^6/uL (3.85-5.65); Red Cell Distribution Width 16.6 % (12.1-15.1); White Blood Count 4.75 10^3/uL (3.29-11.43)
[2023-07-22 14:51] LABS: Alanine Aminotransferase 32 U/L (0-41); Albumin Level 3.2 g/dL (3.5-5.2); Alkaline Phosphatase 84 U/L (40-130); Anion Gap 17.1 (5-19); Aspartate Amino Transferase 48 U/L (0-40); Blood Urea Nitrogen 15 mg/dL (8-23); Calcium 8.7 mg/dL (8.5-10.5); Carbon Dioxide 17 mmol/L (22-29); Chloride 108 mmol/L (98-107); Ferritin 45 ng/mL (30-400); Globulin 2.7 g/dL (1.3-4.6); Glomerular Filtration Rate 66.8 mL/min (90-130); Glucose 115 mg/dL (65-115); Iron 141 ug/dL (59-158); Osmolality Calculated 288 mOsm/kg (285-295); Percent Saturation 46.2 % (20-50); Potassium 4.1 mmol/L (3.5-5.1); Sodium 138 mmol/L (136-145); Total Bilirubin 1.5 mg/dL (0.15-1.2); Total Iron Binding Capacity 305 mcg/dl; Total Protein 5.9 g/dL (6.6-8.7); Unsaturated Iron Binding 164 ug/dL (112-347)
[2023-07-30 09:58] LABS: Basophils # 0.1 10^3/uL (0.0-0.1); Basophils % 2.3 %; Eosinophils # 0.3 10^3/uL (0.0-0.8); Hematocrit 32.8 % (37-53); Lymphocytes # 0.6 10^3/uL (0.8-4.8); Lymphocytes % 18.1 %; Mean Corpuscular HGB Conc 31.1 g/dL (30-55); Mean Corpuscular Hemoglobin 28.5 pg (27-33); Mean Corpuscular Volume 91.6 fl (82-101); Mean Platelet Volume 10.5 fL (7.4-10.4); Monocytes # 0.5 10^3/uL (0.2-0.9); Monocytes % 14.6 %; Neutrophils # 1.92 10^3/uL (1.8-7.7); Nucleated Red Blood Cells % 0 %; Platelet Count 145 10^3/cmm (157-399); Red Blood Count 3.58 10^6/uL (3.85-5.65); Red Cell Distribution Width 16.3 % (12.1-15.1); White Blood Count 3.43 10^3/uL (3.29-11.43)
[2023-07-30 10:20] LABS: Alanine Aminotransferase 28 U/L (0-41); Albumin Level 3.2 g/dL (3.5-5.2); Alkaline Phosphatase 89 U/L (40-130); Anion Gap 13.7 (5-19); Aspartate Amino Transferase 38 U/L (0-40); Blood Urea Nitrogen 15 mg/dL (8-23); Calcium 8.8 mg/dL (8.5-10.5); Carbon Dioxide 21 mmol/L (22-29); Chloride 107 mmol/L (98-107); Globulin 2.6 g/dL (1.3-4.6); Glomerular Filtration Rate 60.4 mL/min (90-130); Glucose 124 mg/dL (65-115); Osmolality Calculated 286 mOsm/kg (285-295); Potassium 4.7 mmol/L (3.5-5.1); Sodium 137 mmol/L (136-145); Total Bilirubin 1.1 mg/dL (0.15-1.2); Total Protein 5.8 g/dL (6.6-8.7)
[2023-08-08 15:21] LABS: Basophils % 0.2 %; Eosinophils # 0.1 10^3/uL (0.0-0.8); Eosinophils % 0.7 %; Hematocrit 29.5 % (37-53); Lymphocytes # 0.3 10^3/uL (0.8-4.8); Lymphocytes % 2.8 %; Mean Corpuscular HGB Conc 30.8 g/dL (30-55); Mean Corpuscular Hemoglobin 28.8 pg (27-33); Mean Corpuscular Volume 93.4 fl (82-101); Monocytes # 1.1 10^3/uL (0.2-0.9); Monocytes % 9.4 %; Neutrophils # 10.52 10^3/uL (1.8-7.7); Neutrophils % 86.4 %; Nucleated Red Blood Cells % 0 %; Platelet Count 92 10^3/cmm (157-399); Red Blood Count 3.16 10^6/uL (3.85-5.65); Red Cell Distribution Width 17.4 % (12.1-15.1); White Blood Count 12.16 10^3/uL (3.29-11.43)
[2023-08-08 15:44] LABS: Alanine Aminotransferase 43 U/L (0-41); Albumin Level 3.2 g/dL (3.5-5.2); Alkaline Phosphatase 75 U/L (40-130); Anion Gap 14.7 (5-19); Aspartate Amino Transferase 36 U/L (0-40); Blood Urea Nitrogen 28 mg/dL (8-23); Calcium 8.7 mg/dL (8.5-10.5); Carbon Dioxide 21 mmol/L (22-29); Chloride 103 mmol/L (98-107); Globulin 2.6 g/dL (1.3-4.6); Glomerular Filtration Rate 55.1 mL/min (90-130); Glucose 107 mg/dL (65-115); Osmolality Calculated 284 mOsm/kg (285-295); Potassium 4.7 mmol/L (3.5-5.1); Sodium 134 mmol/L (136-145); Total Bilirubin 2.2 mg/dL (0.15-1.2); Total Protein 5.8 g/dL (6.6-8.7)
[2023-08-12 09:45] VITALS: BP 114/76; PULSE 66; RESP 18; TEMP 36.4; O2SAT 95
[2023-08-12 10:17] LABS: Basophils # 0.1 10^3/uL (0.0-0.1); Basophils % 1.2 %; Eosinophils # 0.3 10^3/uL (0.0-0.8); Eosinophils % 4.3 %; Hematocrit 32.4 % (37-53); Lymphocytes # 0.8 10^3/uL (0.8-4.8); Mean Corpuscular HGB Conc 30.2 g/dL (30-55); Mean Corpuscular Hemoglobin 27.6 pg (27-33); Mean Corpuscular Volume 91.3 fl (82-101); Mean Platelet Volume 10.3 fL (7.4-10.4); Monocytes # 1.1 10^3/uL (0.2-0.9); Monocytes % 15.2 %; Neutrophils % 67.9 %; Nucleated Red Blood Cells % 0 %; Platelet Count 133 10^3/cmm (157-399); Red Blood Count 3.55 10^6/uL (3.85-5.65); Red Cell Distribution Width 17.2 % (12.1-15.1); White Blood Count 6.92 10^3/uL (3.29-11.43)
[2023-08-12 10:32] LABS: Alanine Aminotransferase 44 U/L (0-41); Albumin Level 2.9 g/dL (3.5-5.2); Alkaline Phosphatase 69 U/L (40-130); Anion Gap 14.9 (5-19); Aspartate Amino Transferase 42 U/L (0-40); Blood Urea Nitrogen 21 mg/dL (8-23); Calcium 8.7 mg/dL (8.5-10.5); Carbon Dioxide 21 mmol/L (22-29); Chloride 105 mmol/L (98-107); Globulin 2.7 g/dL (1.3-4.6); Glomerular Filtration Rate 55.1 mL/min (90-130); Glucose 156 mg/dL (65-115); Osmolality Calculated 288 mOsm/kg (285-295); Potassium 4.9 mmol/L (3.5-5.1); Sodium 136 mmol/L (136-145); Total Bilirubin 1.4 mg/dL (0.15-1.2); Total Protein 5.6 g/dL (6.6-8.7)
== END 2023-08-14 23:59 | disposition home or self-care (01) ==
PROVIDERS: PCP Family Medicine; Visit Provider Internal Medicine Medical Oncology
DX: D50.0 Iron deficiency anemia secondary to blood loss (chronic) (principal); Z53.9 Procedure and treatment not carried out, unspecified reason
CPT/HCPCS: 36415; 36430; 80053; 82728; 83540; 83550; 85025; 86850; 86900; 86920; J7050; P9016

== ENCOUNTER 2023-09-09 14:45 | Oncology outpatient (recurring) (ONCR) | payer MEDICARE, OTHER, SELFPAY ==
[2023-08-19 11:04] LABS: Basophils # 0.1 10^3/uL (0.0-0.1); Basophils % 1.5 %; Eosinophils # 0.2 10^3/uL (0.0-0.8); Eosinophils % 3.7 %; Lymphocytes # 0.6 10^3/uL (0.8-4.8); Mean Corpuscular HGB Conc 30.3 g/dL (30-55); Mean Corpuscular Hemoglobin 27.7 pg (27-33); Mean Corpuscular Volume 91.4 fl (82-101); Mean Platelet Volume 9.3 fL (7.4-10.4); Monocytes # 0.5 10^3/uL (0.2-0.9); Monocytes % 13.2 %; Neutrophils # 2.75 10^3/uL (1.8-7.7); Neutrophils % 67.4 %; Nucleated Red Blood Cells % 0 %; Platelet Count 113 10^3/cmm (157-399); Red Blood Count 3.39 10^6/uL (3.85-5.65); Red Cell Distribution Width 17.2 % (12.1-15.1); White Blood Count 4.08 10^3/uL (3.29-11.43)
[2023-08-19 11:31] LABS: Iron 40 ug/dL (59-158)
[2023-08-19 11:42] LABS: Total Iron Binding Capacity 285 mcg/dl; Unsaturated Iron Binding 245 ug/dL (112-347)
[2023-08-22] MEDS: sodium chloride 0.9% 250 ML 75 ML IV (08:33)
[2023-08-22] MEDS: ferric carboxy (IVPB) 750 MG in sodium chloride 0.9% (100 ml) 100 ML 345 MG IV (08:36)
[2023-08-22 09:35] VITALS: BP 122/70; PULSE 71; RESP 17; TEMP 36; O2SAT 99
[2023-08-29 07:46] VITALS: BP 104/50; PULSE 74; RESP 17; TEMP 36.4; O2SAT 99
[2023-08-29 08:29] LABS: Basophils # 0.1 10^3/uL (0.0-0.1); Basophils % 1.5 %; Eosinophils # 0.2 10^3/uL (0.0-0.8); Eosinophils % 5.6 %; Hematocrit 30.9 % (37-53); Lymphocytes # 0.6 10^3/uL (0.8-4.8); Lymphocytes % 17.7 %; Mean Corpuscular HGB Conc 31.1 g/dL (30-55); Mean Corpuscular Hemoglobin 28.3 pg (27-33); Mean Corpuscular Volume 91.2 fl (82-101); Mean Platelet Volume 10.7 fL (7.4-10.4); Monocytes # 0.6 10^3/uL (0.2-0.9); Monocytes % 18.3 %; Neutrophils # 1.92 10^3/uL (1.8-7.7); Neutrophils % 56.6 %; Nucleated Red Blood Cells % 0 %; Platelet Count 143 10^3/cmm (157-399); Red Blood Count 3.39 10^6/uL (3.85-5.65); Red Cell Distribution Width 20.1 % (12.1-15.1); White Blood Count 3.39 10^3/uL (3.29-11.43)
[2023-08-29] MEDS: ferric carboxy (IVPB) 750 MG in sodium chloride 0.9% (100 ml) 100 ML 345 MG IV (08:47)
[2023-08-29] MEDS: sodium chloride 0.9% 250 ML 50 ML IV (08:47)
[2023-08-29 09:59] VITALS: BP 109/67; PULSE 67; RESP 14; TEMP 36.3; O2SAT 99
[2023-08-29 12:23] VITALS: BP 109/67; PULSE 67; RESP 14; TEMP 36.3; O2SAT 99
[2023-09-02 14:16] LABS: Basophils # 0.1 10^3/uL (0.0-0.1); Basophils % 1.5 %; Eosinophils # 0.1 10^3/uL (0.0-0.8); Eosinophils % 3.1 %; Hematocrit 32.3 % (37-53); Lymphocytes # 0.5 10^3/uL (0.8-4.8); Lymphocytes % 13.9 %; Mean Corpuscular Hemoglobin 29.3 pg (27-33); Mean Corpuscular Volume 94.7 fl (82-101); Mean Platelet Volume 11.1 fL (7.4-10.4); Monocytes # 0.7 10^3/uL (0.2-0.9); Monocytes % 17.8 %; Neutrophils # 2.46 10^3/uL (1.8-7.7); Neutrophils % 63.4 %; Nucleated Red Blood Cells % 0 %; Platelet Count 126 10^3/cmm (157-399); Red Blood Count 3.41 10^6/uL (3.85-5.65); White Blood Count 3.88 10^3/uL (3.29-11.43)
[2023-09-09 14:30] LABS: Basophils # 0.1 10^3/uL (0.0-0.1); Basophils % 1.6 %; Eosinophils # 0.2 10^3/uL (0.0-0.8); Eosinophils % 3.1 %; Hematocrit 32.4 % (37-53); Lymphocytes # 0.8 10^3/uL (0.8-4.8); Lymphocytes % 15.3 %; Mean Corpuscular HGB Conc 31.5 g/dL (30-55); Mean Corpuscular Hemoglobin 30.7 pg (27-33); Mean Corpuscular Volume 97.6 fl (82-101); Monocytes # 0.8 10^3/uL (0.2-0.9); Monocytes % 15.1 %; Neutrophils # 3.29 10^3/uL (1.8-7.7); Neutrophils % 64.5 %; Nucleated Red Blood Cells % 0 %; Platelet Count 123 10^3/cmm (157-399); Red Blood Count 3.32 10^6/uL (3.85-5.65); Red Cell Distribution Width 23.7 % (12.1-15.1)
== END 2023-09-12 23:59 | disposition home or self-care (01) ==
PROVIDERS: PCP Family Medicine; Visit Provider Internal Medicine Medical Oncology
DX: D50.0 Iron deficiency anemia secondary to blood loss (chronic); Z53.9 Procedure and treatment not carried out, unspecified reason
CPT/HCPCS: 36415; 83540; 83550; 85025; 96365; J1439; J7050

== ENCOUNTER 2023-10-08 09:42 | Oncology outpatient (recurring) (ONCR) | payer MEDICARE, OTHER, SELFPAY ==
[2023-09-16 14:34] LABS: Basophils # 0.1 10^3/uL (0.0-0.1); Basophils % 1.7 %; Eosinophils # 0.2 10^3/uL (0.0-0.8); Eosinophils % 4.1 %; Hematocrit 31.1 % (37-53); Lymphocytes # 1.1 10^3/uL (0.8-4.8); Mean Corpuscular HGB Conc 32.2 g/dL (30-55); Mean Corpuscular Hemoglobin 31.6 pg (27-33); Mean Corpuscular Volume 98.4 fl (82-101); Mean Platelet Volume 10.2 fL (7.4-10.4); Monocytes % 16.1 %; Neutrophils # 3.52 10^3/uL (1.8-7.7); Neutrophils % 59.8 %; Nucleated Red Blood Cells % 0 %; Platelet Count 114 10^3/cmm (157-399); Red Blood Count 3.16 10^6/uL (3.85-5.65); Red Cell Distribution Width 22.5 % (12.1-15.1); White Blood Count 5.89 10^3/uL (3.29-11.43)
[2023-09-23 13:28] LABS: Basophils # 0.1 10^3/uL (0.0-0.1); Basophils % 1.7 %; Eosinophils # 0.3 10^3/uL (0.0-0.8); Eosinophils % 6.1 %; Lymphocytes # 0.7 10^3/uL (0.8-4.8); Lymphocytes % 16.9 %; Mean Corpuscular HGB Conc 32.4 g/dL (30-55); Mean Corpuscular Hemoglobin 33.1 pg (27-33); Mean Corpuscular Volume 102.1 fl (82-101); Mean Platelet Volume 10.9 fL (7.4-10.4); Monocytes # 0.6 10^3/uL (0.2-0.9); Monocytes % 14.2 %; Neutrophils # 2.48 10^3/uL (1.8-7.7); Neutrophils % 60.9 %; Nucleated Red Blood Cells % 0 %; Platelet Count 120 10^3/cmm (157-399); Red Blood Count 2.84 10^6/uL (3.85-5.65); Red Cell Distribution Width 21.6 % (12.1-15.1); White Blood Count 4.08 10^3/uL (3.29-11.43)
[2023-10-08 10:15] LABS: Basophils # 0.1 10^3/uL (0.0-0.1); Basophils % 2.9 %; Eosinophils # 0.6 10^3/uL (0.0-0.8); Eosinophils % 12.8 %; Lymphocytes # 0.6 10^3/uL (0.8-4.8); Lymphocytes % 12.6 %; Mean Corpuscular HGB Conc 30.6 g/dL (30-55); Mean Corpuscular Hemoglobin 30.4 pg (27-33); Mean Corpuscular Volume 99.4 fl (82-101); Mean Platelet Volume 9.8 fL (7.4-10.4); Monocytes # 0.7 10^3/uL (0.2-0.9); Monocytes % 16.4 %; Neutrophils # 2.47 10^3/uL (1.8-7.7); Neutrophils % 55.3 %; Nucleated Red Blood Cells % 0 %; Platelet Count 152 10^3/cmm (157-399); Red Blood Count 3.42 10^6/uL (3.85-5.65); Red Cell Distribution Width 17.1 % (12.1-15.1); White Blood Count 4.46 10^3/uL (3.29-11.43)
== END 2023-10-13 23:59 | disposition home or self-care (01) ==
PROVIDERS: PCP Family Medicine; Visit Provider Internal Medicine Medical Oncology
DX: D50.0 Iron deficiency anemia secondary to blood loss (chronic) (principal)
CPT/HCPCS: 36415; 85025

== ENCOUNTER 2023-10-21 08:39 | Oncology outpatient (recurring) (ONCR) | payer MEDICARE, OTHER, SELFPAY ==
[2023-10-21 09:31] LABS: Basophils # 0.1 10^3/uL (0.0-0.1); Basophils % 1.8 %; Eosinophils # 0.8 10^3/uL (0.0-0.8); Eosinophils % 15.4 %; Hematocrit 32.4 % (37-53); Lymphocytes # 0.6 10^3/uL (0.8-4.8); Mean Corpuscular HGB Conc 31.8 g/dL (30-55); Mean Corpuscular Hemoglobin 30.7 pg (27-33); Mean Corpuscular Volume 96.4 fl (82-101); Mean Platelet Volume 9.2 fL (7.4-10.4); Monocytes # 0.8 10^3/uL (0.2-0.9); Neutrophils # 2.77 10^3/uL (1.8-7.7); Neutrophils % 55.6 %; Nucleated Red Blood Cells % 0 %; Platelet Count 136 10^3/cmm (157-399); Red Blood Count 3.36 10^6/uL (3.85-5.65); White Blood Count 4.99 10^3/uL (3.29-11.43)
[2023-10-21 10:31] LABS: Alanine Aminotransferase 27 U/L (0-41); Albumin Level 3.1 g/dL (3.5-5.2); Alkaline Phosphatase 102 U/L (40-130); Anion Gap 14.8 (5-19); Aspartate Amino Transferase 40 U/L (0-40); Blood Urea Nitrogen 21 mg/dL (8-23); Calcium 8.8 mg/dL (8.5-10.5); Carbon Dioxide 20 mmol/L (22-29); Chloride 108 mmol/L (98-107); Globulin 2.6 g/dL (1.3-4.6); Glomerular Filtration Rate 66.8 mL/min (90-130); Glucose 160 mg/dL (65-115); Osmolality Calculated 292 mOsm/kg (285-295); Potassium 4.8 mmol/L (3.5-5.1); Sodium 138 mmol/L (136-145); Total Bilirubin 1.3 mg/dL (0.15-1.2); Total Protein 5.7 g/dL (6.6-8.7)
== END 2023-11-12 23:59 | disposition home or self-care (01) ==
LOC: ONCMED 08:40
PROVIDERS: PCP Family Medicine; Visit Provider Internal Medicine Medical Oncology
DX: D50.0 Iron deficiency anemia secondary to blood loss (chronic)
CPT/HCPCS: 36415; 80053; 85025

== ENCOUNTER 2023-10-27 09:31 | Inpatient (IN) | payer MEDICARE, OTHER, SELFPAY ==
[2023-10-27] VITALS (9 sets, daily range): BP systolic 117–137; BP diastolic 62–74; PULSE 69–83; RESP 16–18; TEMP 36.7–36.8; O2SAT 96–100; BMI 30.3
--- NOTE | 2023-10-27 10:02 | ED_ITS ---
HPI - Abdominal Pain 2 General: Chief Complaint: Abdominal Pain Stated Complaint: abd pain, N/V, fall Time Seen by Provider: 10/27/23 09:36 Source: patient Mode of arrival: ambulatory History of Present Illness: 68-year-old male with a known history of liver cirrhosis. He is previously TIPS procedure and esophageal varices with banding had 1 dark stool this morning with some blood tinge to it in the toilet water. No vomiting of any blood no coffee- ground emesis he is seen acutely at encephalopathic has had problems before with hepatic encephalopathy. Vomited up his lactulose today. The chart says is liver cirrhosis due to SORENSEN per the made a comment that he was a former drinker but quit about 6 years ago. Onset (ago): day(s) Associated Symptoms: Reports melena; Denies anorexia, belching, bloating, change in bowel habits, change in stool character, chills, coffee ground emesis, constipation, GI cramping, diarrhea, dyspepsia, dysuria, excessive flatus, fever(s), heartburn, hematochezia, hematuria, hematemesis, fecal incontinence, loose stools, nausea, poor appetite, syncope and vomiting Review of Systems 2 Const: Denies: fever(s) or chills Card: Denies: syncope Resp: Denies: dyspnea GI: Reports: melena; Denies: nausea, vomiting, hematemesis, coffee ground emesis, heartburn, diarrhea, constipation, bloating, GI cramping, belching, excessive flatus, fecal incontinence, change in bowel habits, change in stool character or hematochezia : Denies: dysuria or hematuria Musc: Denies: neck pain or back pain Skin/Breast: Denies: rash PFSH ED 2 PFSH: Medical History Diabetes 1.5, 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) Thrombocytopenia, unspecified Hyponatremia Chronic hyponatremia 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 Upper GI bleed CKD (chronic kidney disease) stage 2, GFR 60-89 ml/min -baseline Cr wnl -current renal function at baseline Hepatic encephalopathy -noted ammonia-69; mentation at baseline -on lactulose Obstructive sleep apnea -CPAP qhs Hypothyroidism -TSH wnl -continue levothyroxine Hypertension -VSS -discontinue ARB, continue Aldactone; due to low normal BP and risk of hypotension GERD (gastroesophageal reflux disease) Acute hyponatremia -improved with hydration, on salt tablets -suspect some degree of this will persist chronically Surgical History 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 @ [place], [place] History of umbilical hernia repair (04/18/21) H/O esophagogastroduodenoscopy (03/08/20) History of vasectomy History of surgery on upper extremity History of arthroscopic knee surgery History of appendectomy Family History Other Bleeding disorder CAD (coronary artery disease) Diabetes Hypertension Lung disease Psychiatric illness Denies family history of Clotting disorder Dementia Hyperlipidemia Chronic kidney disease (CKD) Suicide Anesthesia complication Cancer Stroke Social History Smoking and tobacco/nicotine status: former use of tobacco/nicotine Quit status (tobacco/nicotine): has quit using Year quit tobacco: 1981 Former quit date comment: smoked 40+ years Alcohol intake: former Substance/Drug Use: never Physical Exam 2 Const: GENERAL APPEARANCE: cooperative and comfortable O RIENTATION/CONSCIOUSNESS: Yes awake and Yes confused HENMT: COMMON NORMALS: normocephalic, atraumatic and hearing grossly normal bilaterally HEAD & SCALP: normocephalic and atraumatic Resp: COMMON NORMALS: normal respiratory effort, No retractions, No use of accessory muscles and clear to auscultation bilaterally AUSCULTATION: clear to auscultation bilaterally Cardio: COMMON NORMALS: regular rate, regular rhythm and No murmurs present (Cardio) RATE: regular rate RHYTHM: regular rhythm GI: COMMON NORMALS: No hepatosplenomegaly present INSPECTION: Yes abdominal distension AUSCULTATION: Yes normoactive bowel sounds PALPATION: No Tenderness to palpation present (GI), No Guarding due to palpation present (GI) and Yes No hepatosplenomegaly present RECTAL EXAM: Yes normal sphincter tone and Yes heme positive stool Extremity: COMMON NORMALS: normal to inspection, capillary refill normal, no clubbing, cyanosis or edema, no calf tenderness and no pedal edema Skin: COMMON NORMALS: no rashes or lesions noted GENERAL SKIN EXAM: no rashes or lesions noted Course 2 Vital Signs: Vital signs: Vital Signs Temperature 98.0 F 10/27/23 09:40 Pulse Rate 74 10/27/23 12:12 Respiratory Rate 18 10/27/23 12:12 Blood Pressure 117/62 10/27/23 12:12 Pulse Oximetry 99 10/27/23 12:12 Oxygen Delivery Me thod Room Air 10/27/23 12:12 MDM - Abdominal Pain Medical Decision Making Rectal exam Hemoccult positive. No bright red blood per rectum CT shows transverse colitis. Hemoglobin is actually better than it has been in the past BUN mildly elevated will admit for hepatic encephalopathy lower GI bleed with colitis. Discussed with hospitalist and with surgeon orders written Medical Records I reviewed the patient's medical records. Lab Data I reviewed the patient's lab results. 10/27/23 10:14 10/27/23 10:14 Labs/Radiology: Radiology Impressions Abdomen/Pelvis CT 10/27/23 10:38 IMPRESSION: 1. [id number] wall thickening of hepatic flexure of the colon without signs of obstruction. Acute colitis suspected. 2. Mild compression deformity superior endplate of L3 vertebra without significant retropulsion. Indeterminate age fracture. 3. Cirrhotic changes of the liver. Tips catheter in place. Cholelithiasis with minimal pericholecystic edema possibly from liver failure and adjacent colon inflammation. If concern for acute cholecystitis recommend follow-up with HIDA scan. ADDENDUM: 10/27/23 1213 Comparison made with previous CT scan dated June 15, 2023. Minimal superior endplate compression deformity of L3 vertebra is stable compatible with chronic fracture. Laboratory Results WBC 5.20 10^3/uL (3.29-11.43) 10/27/23 10:14 RBC 3.58 10^6/uL (3.85-5.65) L 10/27/23 10:14 Hgb 10.60 g/dL (11.27-16.99) L 10/27/23 10:14 Hct 34.3 % (37-53) L 10/27/23 10:14 MCV 95.8 fl (82-101) 10/27/23 10:14 MCH 29.6 pg (27-33) 10/27/23 10:14 MCHC 30.9 g/dL (30-55) 10/27/23 10:14 RDW 16.0 % (12.1-15.1) H 10/27/23 10:14 Plt Count 164 10^3/cmm (157-399) 10/27/23 10:14 MPV 10.5 fL (7.4-10.4) H 10/27/23 10:14 Neut % (Auto) 64.1 % 10/27/23 10:14 Lymph % (Auto) 12.5 % 10/27/23 10:14 [place] % (Auto) 12.5 % 10/27/23 10:14 Eos % (Auto) 9.0 % 10/27/23 10:14 Baso % (Auto) 1.7 % 10/27/23 10:14 Neut # (Auto) 3.33 10^3/uL (1.8-7.7) 10/27/23 10:14 Lymph # (Auto) 0.7 10^3/uL (0.8-4.8) L 10/27/23 10:14 [place] # (Auto) 0.7 10^3/uL (0.2-0.9) 10/27/23 10:14 Eos # (Auto) 0.5 10^3/uL (0.0-0.8) 10/27/23 10:14 Baso # (Auto) 0.1 10^3/uL (0.0-0.1) 10/27/23 10:14 Nucleated RBC % (auto) 0 % 10/27/23 10:14 Nucleated RBCs # 0.0 /100WBC 10/27/23 10:14 PT 17.30 SECONDS (12.1-14.9) H 10/27/23 10:14 INR 1.36 (0.8-1.2) H 10/27/23 10:14 APTT 32.5 SECONDS (23.9-36.7) 10/27/23 10:14 Sodium 137 mmol/L (136-145) 10/27/23 10:14 Potassium 4.8 mmol/L (3.5-5.1) 10/27/23 10:14 Chloride 106 mmol/L (98-107) 10/27/23 10:14 Carbon Dioxide 20 mmol/L (22-29) L 10/27/23 10:14 Anion Gap 15.8 (5-19) 10/27/23 10:14 BUN 25 mg/dL (8-23) H 10/27/23 10:14 Creatinine 1.3 mg/dL (0.7-1.2) H 10/27/23 10:14 GFR Calculation 55.1 mL/min (90-130) L 10/27/23 10:14 Glucose 172 mg/dL (65-115) H 10/27/23 10:14 Calculated Osmolality 292 mOsm/kg (285-295) 10/27/23 10:14 Calcium 9.1 mg/dL (8.5-10.5) 10/27/23 10:14 Total Bilirubin 1.7 mg/dL (0.15-1.2) H 10/27/23 10:14 AST 35 U/L (0-40) 10/27/23 10:14 ALT 30 U/L (0-41) 10/27/23 10:14 Alkaline Phosphatase 111 U/L (40-130) 10/27/23 10:14 Ammonia 209 umol/L (16-60) H 10/27/23 10:14 Total Protein 6.3 g/dL (6.6-8.7) L 10/27/23 10:14 Albumin 3.6 g/dL (3.5-5.2) 10/27/23 10:14 Globulin 2.7 g/dL (1.3-4.6) 10/27/23 10:14 Lipase 36 U/L (13-60) 10/27/23 10:14 Urine Color Straw (Yellow) 10/27/23 10:04 Urine Appearance Clear (CLEAR) 10/27/23 10:04 Urine pH 6.5 (5-7) 10/27/23 10:04 Ur Specific [place] 1.015 (1.005-1.030) 10/27/23 10:04 Urine Protein Neg (Negative) 10/27/23 10:04 Urine Glucose (UA) Norm (Normal) 10/27/23 10:04 Urine Ketones Negative (Negative) 10/27/23 10:04 Urine Blood Neg (Negative) 10/27/23 10:04 Urine Nitrate Negative (Negative) 10/27/23 10:04 Urine Bilirubin Neg (Negative) 10/27/23 10:04 Urine Urobilinogen Norm mg/dL (Negative) 10/27/23 10:04 Ur Leukocyte Esterase Negative (Negative) 10/27/23 10:04 All radiology interpretation(s) finalized by discharge Discharge Plan Discharge Patient Disposition: Admitted As Inpatient Clinical Impression: Acute hepatic encephalopathy, 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, Iron deficiency anemia secondary to blood loss (chronic), Anemia, Colitis Condition: Stable Prescriptions: No Action ondansetron HCl 4 mg tablet 4 mg PO Q4H PRN (Reason: nausea and vomiting) Qty: 30 0RF lidocaine 5 % adhesive patch,medicated 1 patch topical DAILY PRN (Reason: Pain) Rx Instructions: leave on most painful area for up to 12 hrs then off for 12 hours ferrous sulfate 325 mg (65 mg iron) tablet 325 mg PO BID levothyroxine 25 mcg tablet 25 mcg PO DAILY@0800 fluticasone propionate [Flonase Allergy Relief] 50 mcg/actuation [place],Suspension 2 spray INTRANASAL DAILY PRN (Reason: Allergy Symptoms) Xifaxan 550 mg tablet 550 mg PO BID Qty: 90 3RF midodrine 5 mg tablet 5 mg PO BID Rx Instructions: do not give last dose of day after 6PM or within 4 hrs of bedtime insulin glargine [Basaglar KwikPen U-100 Insulin] 100 unit/mL (3 mL) insulin pen 20 unit SUBCUT BEDTIME multivitamin Tablet 1 tab PO DAILY zinc acetate 50 mg (zinc) Capsule 50 mg PO DAILY folic acid 400 mcg Tablet 400 mcg PO DAILY furosemide 80 mg tablet 80 mg PO QAM triamcinolone acetonide 0.1 % Ointment 1 applic TOPICAL BID spironolactone 50 mg tablet 100 mg PO QAM Novolog FlexPen U-100 Insulin 100 unit/mL (3 mL) insulin pen See Rx Instructions .ROUTE .COMPLEX Rx Instructions: sliding scale tid Enulose 10 gram/15 mL solution 30 ml PO DAILY pantoprazole 40 mg tablet,delayed release (DR/EC) 40 mg PO BID Referrals: Floresita Bustillo DO [Primary Care Provider] - Coding Level of Care Code ED Director Of Neurology for Yehuda Little
[2023-10-27 10:09] LABS: Add Urine Microscopic? NO; Charge for UA Resulting for Rev
[2023-10-27 10:19] LABS: Bilirubin Urine Neg (Negative); Blood Urine Neg (Negative); Glucose Urine UA Norm (Normal); Ketones Urine Negative (Negative); Leukocyte Esterase Urine Negative (Negative); Nitrate Urine Negative (Negative); Protein Urine Neg (Negative); Specific Gravity, Urine 1.015 (1.005-1.030); Urine Appearance Clear (CLEAR); Urine Color Straw (Yellow); Urobilinogen Urine Norm (Negative); pH Urine 6.5 (5-7)
[2023-10-27 10:20] LABS: Basophils # 0.1 10^3/uL (0.0-0.1); Basophils % 1.7 %; Eosinophils # 0.5 10^3/uL (0.0-0.8); Hematocrit 34.3 % (37-53); Lymphocytes # 0.7 10^3/uL (0.8-4.8); Lymphocytes % 12.5 %; Mean Corpuscular HGB Conc 30.9 g/dL (30-55); Mean Corpuscular Hemoglobin 29.6 pg (27-33); Mean Corpuscular Volume 95.8 fl (82-101); Mean Platelet Volume 10.5 fL (7.4-10.4); Monocytes # 0.7 10^3/uL (0.2-0.9); Monocytes % 12.5 %; Neutrophils # 3.33 10^3/uL (1.8-7.7); Neutrophils % 64.1 %; Nucleated Red Blood Cells % 0 %; Platelet Count 164 10^3/cmm (157-399); Red Blood Count 3.58 10^6/uL (3.85-5.65)
[2023-10-27 10:32] LABS: INR 1.36 (0.8-1.2)
[2023-10-27 10:33] LABS: Partial Thromboplastin Time 32.5 SECONDS (23.9-36.7)
--- NOTE | 2023-10-27 10:38 | CTR_ITS ---
PROCEDURE INFORMATION: Exam: CT Abdomen And Pelvis With Contrast Exam date and time: 10/27/2023 11:08 AM Age: 68 years old Clinical indication: Abdominal pain; Generalized; Prior surgery; Surgery date: 6+ months; Surgery type: Appy, hernia; Patient HX: HX of end stage liver ds; Additional info: Abd pain TECHNIQUE: Imaging protocol: Computed tomography of the abdomen and pelvis with contrast. Radiation optimization: All CT scans at this facility use at least one of these dose optimization techniques: automated exposure control; mA and/or kV adjustment per patient size (includes targeted exams where dose is matched to clinical indication); or iterative reconstruction. Contrast material: OMNI 350; Contrast volume: 100 ml; Contrast route: INTRAVENOUS (IV); COMPARISON: CT abdomen pelvis w con* [id number] 04/17/2021 10:14 PM RADIATION DOSE METRICS: Total DLP (mGy-cm): 1049.53 FINDINGS: Lungs: Lung bases are clear as visulized. Liver: Cirrhotic changes. TIPS catheter in place. Gallbladder and bile ducts: Calcified gallstones in the gallbladder. No significant biliary ductal dilatation. Minimal pericholecystic edema is possibly from hepatocellular disease. Pancreas: Normal. No ductal dilation. Spleen: Minimally enlarged, stable. Adrenal glands: Normal. Kidneys and ureters: 1 mm calculus in lower calyx of left kidney. No hydronephrosis. Stomach and bowel: Minimal to moderate wall thickening and edema of hepatic flexure of the colon. No obstruction. Appendix: Appendectomy history noted. Intraperitoneal space: Unremarkable. No free air. No significant fluid collection. Vasculature: No abdominal aortic aneurysm. Calcifications in aorta and iliac vessels. Lymph nodes: No enlarged lymph nodes. Urinary bladder: Unremarkable as visualized. Reproductive: Small benign calcification in the prostate gland. Bones/joints: No acute fracture. Prominent spondylotic changes L3 through S1 level. Minimal superior endplate compression deformity of L3 vertebra, new compared to previous study. No significant retropulsion. Soft tissues: Gynecomastia suspected. CT/CT abdomen pelvis w con* [id number] IMPRESSION: 1. [id number] wall thickening of hepatic flexure of the colon without signs of obstruction. Acute colitis suspected. 2. Mild compression deformity superior endplate of L3 vertebra without significant retropulsion. Indeterminate age fracture. 3. Cirrhotic changes of the liver. Tips catheter in place. Cholelithiasis with minimal pericholecystic edema possibly from liver failure and adjacent colon inflammation. If concern for acute cholecystitis recommend follow-up with HIDA scan.
[2023-10-27 10:40] LABS: Alanine Aminotransferase 30 U/L (0-41); Albumin Level 3.6 g/dL (3.5-5.2); Alkaline Phosphatase 111 U/L (40-130); Anion Gap 15.8 (5-19); Aspartate Amino Transferase 35 U/L (0-40); Blood Urea Nitrogen 25 mg/dL (8-23); Calcium 9.1 mg/dL (8.5-10.5); Carbon Dioxide 20 mmol/L (22-29); Chloride 106 mmol/L (98-107); Globulin 2.7 g/dL (1.3-4.6); Glomerular Filtration Rate 55.1 mL/min (90-130); Glucose 172 mg/dL (65-115); Lipase 36 U/L (13-60); Osmolality Calculated 292 mOsm/kg (285-295); Potassium 4.8 mmol/L (3.5-5.1); Sodium 137 mmol/L (136-145); Total Bilirubin 1.7 mg/dL (0.15-1.2); Total Protein 6.3 g/dL (6.6-8.7)
[2023-10-27 10:41] LABS: Ammonia 209 umol/L (16-60)
[2023-10-27 10:42] LABS: Creatinine Clr Calc Pharmacy 69.9352
[2023-10-27] MEDS: sodium chloride 0.9% 1,000 ML 999 ML IV (10:59)
[2023-10-27] MEDS: pantoprazole 40 mg SDV 80 MG IVP (10:59)
[2023-10-27] MEDS: iohexol 350 mg/mL 500 mL Btl (per mL) IV (11:14)
--- NOTE | 2023-10-27 11:23 | PC.PHAR ---
Addendum entered by Lauren Hickey 10/27/23 11:28: pts states the pt takes lasix 80mg qam ext shows filled 10/09/23 90d/s 80mg bid-pts states the pt is suppose to take midodrine 5mg tid but states pt only takes 5mg bid- Original Note: pts verified pts medications-pts states the pt takes the medications entered-
--- NOTE | 2023-10-27 12:48 | P.HP_ITS ---
Providers/Chief Complaint 2 Primary Care Provider: Floresita Bustillo DO Chief Complaint: abd pain, N/V, fall History of Present Illness Mr Luis Muñoz is a 68 year old man with PMH of liver cirrhosis , esophageal varices s/p TIPS , banding presents today for further evaluation of altered mental status, abdominal pain and melena. History from the patient is limited due to lethargy. Patient is currently AAO x 1 and reports that he has generalized weakness. He also reports episodes of diarrhea which was black and bloody. Patient also reported that he had an episode of ? bloody vomitus this morning, is unclear if this is true. He denies fever, chills, abdominal pain, chest pain, cough or any other symptoms. In the ER, labs showed a hemoglobin of 10. 6 , which is similar compared to about a week ago . patient's hemoglobin stable about a week ago. He has elevated ammonia levels up to 209. He reports he has been taking his lactulose. CT of the abdomen and pelvis done showed signs of acute colitis . General surgery consulted from the ER. Review of Systems 2 General: Reports: 10 or more systems reviewed and unremarkable except in HPI and below Const: Denies: fever(s) or chills Eyes: Denies: photophobia ENMT: Denies: enlarged tonsils Card: Denies: syncope Resp: Denies: dyspnea GI: Reports: nausea, vomiting, diarrhea and hematochezia : Denies: dysuria or hematuria Musc: Denies: neck pain, back pain or joint warmth Skin/Breast: Denies: rash Neuro: Reports: other (Denies headache) Medications/Allergies Home Medications Medication Instructions Recorded Confirmed Last Taken Type levothyroxine 25 mcg tablet 25 mcg PO DAILY@0800 02/16/20 10/27/23 06/15/23 History fluticasone propionate 50 2 spray intranasal DAILY PRN 04/18/21 10/27/23 01/09/22 History mcg/actuation nasal Allergy Symptoms spray,suspension (Flonase Allergy Relief) rifaximin 550 mg tablet (Xifaxan) 550 mg PO BID #90 tabs 08/15/21 10/27/23 06/15/23 Rx ferrous sulfate 325 mg (65 mg 325 mg PO BID 12/28/22 10/27/23 06/15/23 History iron) tablet lidocaine 5 % topical patch 1 patch topical DAILY PRN Pain 12/28/22 10/27/23 Unknown History midodrine 5 mg tablet 5 mg PO BID 12/28/22 10/27/23 06/15/23 History ondansetron HCl 4 mg tablet 4 mg PO Q4H PRN nausea and 03/25/23 10/27/23 Unknown Rx vomiting #30 tabs insulin glargine 100 unit/mL (3 20 unit SUBCUT BEDTIME 06/15/23 10/27/23 06/14/23 History mL) subcutaneous pen (Basaglar KwikPen U-100 Insulin) folic acid 400 mcg tablet 400 mcg PO DAILY 10/27/23 10/27/23 Unknown History furosemide 80 mg tablet 80 mg PO QAM 10/27/23 10/27/23 Unknown History insulin aspart U-100 100 unit/mL See Rx Instructions .Route .COMPLEX 10/27/23 10/27/23 Unknown History (3 mL) subcutaneous pen (Novolog FlexPen U-100 Insulin aspart) lactulose 10 gram/15 mL oral 30 ml PO DAILY 10/27/23 10/27/23 Unknown History solution (Enulose) multivitamin 1 tab PO DAILY 10/27/23 10/27/23 Unknown History pantoprazole 40 mg tablet,delayed 40 mg PO BID 10/27/23 10/27/23 Unknown History release spironolactone 50 mg tablet 100 mg PO QAM 10/27/23 10/27/23 Unknown History triamcinolone acetonide 0.1 % 1 applic topical BID 10/27/23 10/27/23 Unknown History topical ointment zinc acetate 50 mg (zinc) capsule 50 mg PO DAILY 10/27/23 10/27/23 Unknown History Allergies Allergy/AdvReac Type Severity Reaction Status Date / Time Sulfa (Sulfonamide Allergy ALGY-Rash Verified 10/27/23 11:12 Antibiotics) PFSH Acute 2 PFSH: Medical History Diabetes 1.5, 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) Thrombocytopenia, unspecified Hyponatremia Chronic hyponatremia 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 Upper GI bleed CKD (chronic kidney disease) stage 2, GFR 60-89 ml/min -baseline Cr wnl -current renal function at baseline Hepatic encephalopathy -noted ammonia-69; mentation at baseline -on lactulose Obstructive sleep apnea -CPAP qhs Hypothyroidism -TSH wnl -continue levothyroxine Hypertension -VSS -discontinue ARB, continue Aldactone; due to low normal BP and risk of hypotension GERD (gastroesophageal reflux disease) Acute hyponatremia -improved with hydration, on salt tablets -suspect some degree of this will persist chronically Surgical History 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 @ [place], [place] History of umbilical hernia repair (04/18/21) H/O esophagogastroduodenoscopy (03/08/20) History of vasectomy History of surgery on upper extremity History of arthroscopic knee surgery History of appendectomy Family History Other Bleeding disorder CAD (coronary artery disease) Diabetes Hypertension Lung disease Psychiatric illness Denies family history of Clotting disorder Dementia Hyperlipidemia Chronic kidney disease (CKD) Suicide Anesthesia complication Cancer Stroke Social History Smoking and tobacco/nicotine status: former use of tobacco/nicotine Quit status (tobacco/nicotine): has quit using Year quit tobacco: 1981 Former quit date comment: smoked 40+ years Alcohol intake: former Substance/Drug Use: never Vitals/I&O/Wt Last Vital Signs Temp 98.0 F 10/27/23 09:40 Pulse 74 10/27/23 12:12 Resp 18 10/27/23 12:12 BP 117/62 10/27/23 12:12 Pulse Ox 99 10/27/23 12:12 O2 Del Method Room Air 10/27/23 12:12 Weight last 48 hrs Weight 104.326 kg Physical Exam 2 Const: OTHER: lethargic, oriented to self , no acute distress HENMT: COMMON NORMALS: normocephalic, atraumatic, external ears normal, Normal external nose present, moist oral mucous membranes and oropharynx normal HEAD & SCALP: normocephalic and atraumatic NOSE: Normal external nose present E XTERNAL EAR: Yes external ears normal Eye: COMMON NORMALS: Equal, round and reactive pupils present, EOMs intact bilaterally, conjunctivae normal and no scleral icterus CONJUNCTIVA: Yes conjunctivae normal PUPIL: Yes Equal, round and reactive pupils present Neck/C-Spine: COMMON NORMALS: full ROM, no lymphadenopathy and no JVD Chest: COMMONS NORMALS: normal inspection of the chest Resp: COMMON NORMALS: normal respiratory effort and clear to auscultation bilaterally AUSCULTATION: clear to auscultation bilaterally OTHER: No wheezes or crcakles Cardio: COMMON NORMALS: no JVD, regular rate, regular rhythm, S1 normal heart sound present and S2 normal heart sound present RATE: regular rate RHYTHM: regular rhythm HEART SOUNDS: S1 normal heart sound present and S2 normal heart sound present GI: PALPATION: Yes Other GI palpation findings present (Soft, mildly distended, non tender , bowel sounds present ) Extremity: COMMON NORMALS: normal to inspection and no calf tenderness (, trace pedal edema BL ) Neuro: OTHER: Lethargic, AAO x 1, No gross focal deficits Data 10/27/23 14:35 10/27/23 10:14 A&P Assessment and plan (1) Acute hepatic encephalopathy: (2) Colitis: (3) Anemia: (4) 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: (5) Diabetes 1.5, managed as type 2: (6) Thrombocytopenia, unspecified: (7) Melena: Plan #Hepatic Encephalopathy #History of Hepatic Cirrhosis sec to SORENSEN #History of Esophageal varicies s/p banding #History of Iron Deficiency Anemia #Melena #Acute Colitis -Patient presents with lethargy and reports passage of dark-colored stool, ? Bloody vomitus -He is currently AAO x 1 -Lethargy, altered mental status thought to be in the setting of hepatic encephalopathy. Ammonia levels elevated. Precipitant is possibly due to a GI bleed, colitis -History from the patient is limited, but he reports that he had bloody stool and bloody vomitus. He has a history of GI bleeding and esophageal varices. CT of the abdomen showed possible colitis at the hepatic flexure of the colon . It is possible bleeding is in the setting of colitis -Hemoglobin is currently stable. -Trend hemoglobin, obtain type and screen -Start Protonix and octreotide infusion empirically for now , can be discontinued as appropriate -General surgery consulted from the emergency room and is okay for endoscopy as needed -Keep patient n.p.o. -Continue lactulose, rifaximin -Start empiric antibiotics with zosyn -Continue other supportive care #Cholelithiasis with minimal pericholecystic edema -Seen on CT, edema thought to be due to liver failure, and adjacent colitis -Patient has elevated bilirubin which is chronic -Clinically , do not suspect acute cholecystitis -If clinical course changes, HIDA scan to be ordered -General surgery consulted #Hypertension -Will hold antihypertensives for now -Resume as appropriate #Hypothyroidism -Ct levothyroxine #OSITO -Night time CPAP #CKD - Stage 2 -Cr is stable #Type 2 Diabetes -Routine glucose checks, sliding scale insulin, long acting insulin to be held due to NPO status. Attestations 2 Medical Necessity Statement*: Patient will be admitted to inpatient status. he has hepatic encephalopathy, colitis , suspected GI bleeding. He requires IVF , IV antibiotics , close monitoring. 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
[2023-10-27] MEDS: octreotide 500 MCG in sodium chloride 0.9% (100 ml) 100 ML 10.0999999999999996 MCG IV ×2 (14:05→23:00)
[2023-10-27] MEDS: pantoprazole 40 MG in sodium chloride 0.9% (plus) 100 ML 20 MG IV ×3 (14:05→23:00)
[2023-10-27] MEDS: sodium chloride 0.9% 1,000 ML 75 ML IV (14:06)
[2023-10-27 14:44] LABS: Hematocrit 31.3 % (37-53)
[2023-10-27] MEDS: piperacillin-tazobactam 3.375 GM in sodium chloride 0.9% (plus) 50 ML IV ×2 (15:05→22:23)
--- NOTE | 2023-10-27 15:36 | PC.NURSE ---
Pt agitated and unable to complete admission assessment. Refused tele. Admission assessment completed based on 's knowledge. Bed alarm on.
[2023-10-27] MEDS: ferrous sulfate EC 325 mg Tablet PO (17:56)
--- NOTE | 2023-10-27 18:20 | PC.NURSE ---
Pt orientation improves. Pt now A&Ox4.
[2023-10-27] MEDS: lactulose oral liq 20 gm/30 mL UDC PO (19:38)
--- NOTE | 2023-10-27 20:32 | P.CONIM_ITS ---
Providers/Reason For Consult 2 Consulting Physician/Specialty*: Dr. Gregory Moore, DO/General surgery Reason for Consult*: Cholelithiasis with mild gallbladder wall thickening, hematemesis and anemia, colitis Attending Physician: Teddy Frost MD Primary Care Provider: Floresita Bustillo DO History of Present Illness History of Present Illness Luis Muñoz is a 68 year old male with liver failure who is status post TIPS procedure and has chronic anemia, presented to the hospital with acute encephalopathy. He tells me this is the reason he came in and that he is much better now. He reports that he was having nausea and vomiting along with coffee-ground emesis prior to admission. He denies any abdominal pain, diarrhea, constipation, hematochezia and/or melena. He was found to be Hemoccult positive in the ER. He has a history of esophageal varices with banding. CT of the abdomen pelvis shows cholelithiasis with gallbladder wall thickening and colitis at the hepatic flexure Review of Systems 2 General: Reports: 10 or more systems reviewed and unremarkable except in HPI and below Medications/Allergies Home Medications Medication Instructions Recorded Confirmed Last Taken Type levothyroxine 25 mcg tablet 25 mcg PO DAILY@0800 02/16/20 10/27/23 06/15/23 History fluticasone propionate 50 2 spray intranasal DAILY PRN 04/18/21 10/27/23 01/09/22 History mcg/actuation nasal Allergy Symptoms spray,suspension (Flonase Allergy Relief) rifaximin 550 mg tablet (Xifaxan) 550 mg PO BID #90 tabs 08/15/21 10/27/23 06/15/23 Rx ferrous sulfate 325 mg (65 mg 325 mg PO BID 12/28/22 10/27/23 06/15/23 History iron) tablet lidocaine 5 % topical patch 1 patch topical DAILY PRN Pain 12/28/22 10/27/23 Unknown History midodrine 5 mg tablet 5 mg PO BID 12/28/22 10/27/23 06/15/23 History ondansetron HCl 4 mg tablet 4 mg PO Q4H PRN nausea and 03/25/23 10/27/23 Unknown Rx vomiting #30 tabs insulin glargine 100 unit/mL (3 20 unit SUBCUT BEDTIME 06/15/23 10/27/23 06/14/23 History mL) subcutaneous pen (Basaglar KwikPen U-100 Insulin) folic acid 400 mcg tablet 400 mcg PO DAILY 10/27/23 10/27/23 Unknown History furosemide 80 mg tablet 80 mg PO QAM 10/27/23 10/27/23 Unknown History insulin aspart U-100 100 unit/mL See Rx Instructions .Route .COMPLEX 10/27/23 10/27/23 Unknown History (3 mL) subcutaneous pen (Novolog FlexPen U-100 Insulin aspart) lactulose 10 gram/15 mL oral 30 ml PO DAILY 10/27/23 10/27/23 Unknown History solution (Enulose) multivitamin 1 tab PO DAILY 10/27/23 10/27/23 Unknown History pantoprazole 40 mg tablet,delayed 40 mg PO BID 10/27/23 10/27/23 Unknown History release spironolactone 50 mg tablet 100 mg PO QAM 10/27/23 10/27/23 Unknown History triamcinolone acetonide 0.1 % 1 applic topical BID 10/27/23 10/27/23 Unknown History topical ointment zinc acetate 50 mg (zinc) capsule 50 mg PO DAILY 10/27/23 10/27/23 Unknown History Allergies Allergy/AdvReac Type Severity Reaction Status Date / Time Sulfa (Sulfonamide Allergy ALGY-Rash Verified 10/27/23 11:12 Antibiotics) Current Medications Generic Name Dose Route Start Last Admin Trade Name Freq PRN Reason Stop Dose Admin Ferrous Sulfate 325 mg 10/27/23 18:00 10/27/23 17:56 Ferrous Sulfate Ec 325 Mg Tablet PO 325 mg BID JEMIMA Administration Sodium Chloride 1,000 mls @ 75 mls/hr 10/27/23 13:45 10/27/23 14:06 Sodium Chloride 0.9% IV 10/27/23 23:44 75 mls/hr .[id number] JEMIMA Administration Pantoprazole Sodium 40 mg/ 100 mls @ 20 mls/hr 10/27/23 14:00 10/27/23 17:56 Sodium Chloride IV 8 mg/hr .Q5H JEMIMA 20 mls/hr Administration 8 MG/HR Octreotide Acetate 500 mcg/ 101 mls @ 10.1 mls/hr 10/27/23 14:00 10/27/23 14:05 Sodium Chloride IV 50 mcg/hr .Q10H JEMIMA 10.1 mls/hr Administration 50 MCG/HR Piperacillin Sod/Tazobactam 50 mls @ 12.5 mls/hr 10/27/23 14:45 10/27/23 19:07 Sod 3.375 gm/ Sodium Chloride IV Infused Q8H JEMIMA Infusion Protocol Insulin Human Lispro 0 unit 10/27/23 18:00 10/27/23 17:53 Insulin Lispro 100 Unit/1 Ml SUBCUT Not Given WM&BEDTIME JEMIMA Protocol Lactulose 20 gm 10/27/23 18:45 10/27/23 19:38 Lactulose Oral Liq 20 Gm/30 Ml Udc PO 20 gm BID JEMIMA Administration Non-Formulary Medication 550 mg 10/27/23 18:00 10/27/23 17:54 Rifaximin [Xifaxan] PO Not Given BID JEMIMA PFSH Acute 2 PFSH: Medical History Diabetes 1.5, 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) Thrombocytopenia, unspecified Hyponatremia Chronic hyponatremia 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 Upper GI bleed CKD (chronic kidney disease) stage 2, GFR 60-89 ml/min -baseline Cr wnl -current renal function at baseline Hepatic encephalopathy -noted ammonia-69; mentation at baseline -on lactulose Obstructive sleep apnea -CPAP qhs Hypothyroidism -TSH wnl -continue levothyroxine Hypertension -VSS -discontinue ARB, continue Aldactone; due to low normal BP and risk of hypotension GERD (gastroesophageal reflux disease) Acute hyponatremia -improved with hydration, on salt tablets -suspect some degree of this will persist chronically Surgical History 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 @ [place], [place] History of umbilical hernia repair (04/18/21) H/O esophagogastroduodenoscopy (03/08/20) History of vasectomy History of surgery on upper extremity History of arthroscopic knee surgery History of appendectomy Family History Other Bleeding disorder CAD (coronary artery disease) Diabetes Hypertension Lung disease Psychiatric illness Denies family history of Clotting disorder Dementia Hyperlipidemia Chronic kidney disease (CKD) Suicide Anesthesia complication Cancer Stroke Social History Smoking and tobacco/nicotine status: former use of tobacco/nicotine Quit status (tobacco/nicotine): has quit using Year quit tobacco: 1981 Former quit date comment: smoked 40+ years Alcohol intake: former Substance/Drug Use: never Vitals/I&O/Wt Last Vital Signs Temp 98.2 F 10/27/23 19:40 Pulse 73 10/27/23 19:40 Resp 18 10/27/23 19:40 BP 127/71 10/27/23 19:40 Pulse Ox 97 10/27/23 19:40 O2 Del Method Room Air 10/27/23 19:40 10/27/23 10/27/23 10/27/23 06:59 14:59 22:59 Intake Total 1000 / 1000 127 / 1127 Output Total 300 / 300 Balance 1000 / 1000 -173 / 827 Weight last 48 hrs Weight 230 lb Weight 230 lb Physical Exam 2 Narrative: General : Patient is well developed , no acute distress, oriented x3 Head : Normal cephalic, a-traumatic. Ears : Pinnae and external canal are normal. Hearing is normal. Eyes : PERRLA, Sclera and injection are normal. No conjunctival discharge. Nose : Mucous membranes are without erythema. Throat : buccal mucosa is normal, gums are without significant recession or hypertrophy. Lungs : Equal chest rise bilaterally, no use of accessory muscles, trachea is midline. Cor : Rate and rhythm are normal. Abdomen : Soft, ND, NT, no g/r/m Extremities : No edema, no cyanosis or clubbing, dorsalis pedis pulses are present bilaterally, non-tender to palpation of calves. Upper extremities are normal bilaterally. Back : non-tender to palpation, no CVA tenderness. Neuro : CN II - XII intact, Upper and lower extremities have equal and full strength Data 10/27/23 14:35 10/27/23 10:14 A&P Assessment and plan (1) Hematemesis: (2) Iron deficiency anemia secondary to blood loss (chronic): (3) 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: (4) Colitis: (5) Cholelithiasis NOS: (6) Occult blood in stools: Plan Stool studies N.p.o. after midnight Tomorrow for EGD The risks and benefits of the procedure, including bleeding, infection, intestinal perforation requiring surgery, missed lesion were explained to the patient. The patient is understanding of the risks and wishes to proceed. 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
[2023-10-27 20:51] LABS: Glucose Point of Care 145 mg/dL (70-110)
[2023-10-27] MEDS: insulin lispro 100 unit/1 mL SUBCUT (20:55)
[2023-10-27 21:53] LABS: Hematocrit 31.3 % (37-53)
[2023-10-28] VITALS (15 sets, daily range): BP systolic 114–132; BP diastolic 62–73; PULSE 68–86; RESP 14–20; TEMP 36.2–36.8; O2SAT 94–97
[2023-10-28 01:46] LABS: Hematocrit 30.1 % (37-53)
[2023-10-28] MEDS: pantoprazole 40 MG in sodium chloride 0.9% (plus) 100 ML 20 MG IV ×4 (04:00→20:04)
[2023-10-28 05:02] LABS: Basophils # 0.1 10^3/uL (0.0-0.1); Basophils % 2.5 %; Eosinophils # 0.4 10^3/uL (0.0-0.8); Hematocrit 31.1 % (37-53); Lymphocytes # 0.8 10^3/uL (0.8-4.8); Lymphocytes % 18.1 %; Mean Corpuscular HGB Conc 30.2 g/dL (30-55); Mean Corpuscular Hemoglobin 30.1 pg (27-33); Mean Corpuscular Volume 99.7 fl (82-101); Mean Platelet Volume 10.1 fL (7.4-10.4); Monocytes # 0.7 10^3/uL (0.2-0.9); Monocytes % 16.1 %; Neutrophils # 2.35 10^3/uL (1.8-7.7); Neutrophils % 53.1 %; Nucleated Red Blood Cells % 0 %; Platelet Count 128 10^3/cmm (157-399); Red Blood Count 3.12 10^6/uL (3.85-5.65); Red Cell Distribution Width 16.2 % (12.1-15.1); White Blood Count 4.42 10^3/uL (3.29-11.43)
[2023-10-28 05:19] LABS: Alanine Aminotransferase 30 U/L (0-41); Albumin Level 2.8 g/dL (3.5-5.2); Alkaline Phosphatase 93 U/L (40-130); Aspartate Amino Transferase 53 U/L (0-40); Blood Urea Nitrogen 28 mg/dL (8-23); Calcium 8.4 mg/dL (8.5-10.5); Carbon Dioxide 19 mmol/L (22-29); Chloride 113 mmol/L (98-107); Creatinine Clr Calc Pharmacy 64.7429; Globulin 2.4 g/dL (1.3-4.6); Glomerular Filtration Rate 50.5 mL/min (90-130); Glucose 117 mg/dL (65-115); Magnesium 1.9 mg/dL (1.7-2.3); Osmolality Calculated 299 mOsm/kg (285-295); Phosphorus 4.1 mg/dL (2.5-4.5); Sodium 141 mmol/L (136-145); Total Bilirubin 1.7 mg/dL (0.15-1.2); Total Protein 5.2 g/dL (6.6-8.7)
[2023-10-28 05:25] LABS: Anion Gap 13.4 (5-19); Potassium 4.4 mmol/L (3.5-5.1)
[2023-10-28] MEDS: piperacillin-tazobactam 3.375 GM in sodium chloride 0.9% (plus) 50 ML IV ×3 (06:00→22:44)
--- NOTE | 2023-10-28 06:22 | PC.NURSE ---
GI lab here to transport patient down for procedure. Disconnected from IV medications. Report given to GI nurse.
--- NOTE | 2023-10-28 06:31 | P.PN_ITS ---
Subjective 2 Subjective: Patient seen and examined. He denies any further emesis or abdominal pain. Vitals/I&O/Wt Last Vital Signs Temp 98.1 F 10/28/23 03:32 Pulse 85 10/28/23 06:13 Resp 18 10/28/23 03:32 BP 114/65 10/28/23 03:32 Pulse Ox 95 10/28/23 03:32 O2 Del Method Room Air 10/28/23 03:32 10/27/23 10/27/23 10/28/23 14:59 22:59 06:59 Intake Total 1000 / 1000 347 / 1347 1358.400 / 2705.400 Output Total 900 / 900 Balance 1000 / 1000 -553 / 447 1358.400 / 1805.400 Weight last 48 hrs Weight 228 lb 8 oz Weight 230 lb Weight 230 lb Physical Exam 2 Narrative: General: No acute distress, awake alert and oriented x 3 Abdomen: Soft, nontender, nondistended Data 10/28/23 04:35 10/28/23 04:35 A&P Assessment and plan (1) Hematemesis: (2) Iron deficiency anemia secondary to blood loss (chronic): (3) 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 The patient is understanding of the risks and wishes to proceed. 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
--- NOTE | 2023-10-28 06:37 | P.ANESASSM_ITS ---
Pre-Anesthetic Assessment Height/Weight: Height 1.85 m Weight 103.646 kg Temp Pulse Resp BP Pulse Ox O2 Del Method 98.1 F 85 18 114/65 95 Room Air 10/28/23 03:32 10/28/23 06:13 10/28/23 03:32 10/28/23 03:32 10/28/23 03:32 10/28/23 03:32 Preop Diagnosis: Anemia Operation Date: 10/28/23 07:00 Proposed Procedures p EGD(Not Applicable) - Gregory Moore DO Familial anesthetic complications: None Was Beta Venkat taken within 24 hours: N/A Was Clonidine taken within 24 hours: N/A Social No alcohol and No tobacco Exam alert, oriented x 3, clear to auscultation bilaterally and regular rate & rhythm Airway Submandibular: within normal limits Cervical ROM: within normal limits Mallampati: Class II Dentition: full Comments: Comments: Cavity front tooth History/ROS No significant history except as noted and No significant complaints Pulmonary Exertional Dyspnea and Sleep Apnea (CPAP) CV/HEM Anemia and Coronary Artery Disease None reported Hepatic Cirrhosis SORENSEN, esophageal varices and TIPS procedure in 2021 GI Peptic Ulcer Disease Metabolic Diabetes Mellitus and Thyroid Disease [facility] None reported Neuropsych None reported Anesthetic Plan ASA status: 3 Anesthesia: Anesthesia Evaluation and General Risk of > 500 ml blood loss (7ml/kg in children): No Medications/Allergies Home Medications Medication Instructions Recorded Confirmed Last Taken Type levothyroxine 25 mcg tablet 25 mcg PO DAILY@0800 02/16/20 10/27/23 06/15/23 History fluticasone propionate 50 2 spray intranasal DAILY PRN 04/18/21 10/27/23 01/09/22 History mcg/actuation nasal Allergy Symptoms spray,suspension (Flonase Allergy Relief) rifaximin 550 mg tablet (Xifaxan) 550 mg PO BID #90 tabs 08/15/21 10/27/23 06/15/23 Rx ferrous sulfate 325 mg (65 mg 325 mg PO BID 12/28/22 10/27/23 06/15/23 History iron) tablet lidocaine 5 % topical patch 1 patch topical DAILY PRN Pain 12/28/22 10/27/23 Unknown History midodrine 5 mg tablet 5 mg PO BID 12/28/22 10/27/23 06/15/23 History ondansetron HCl 4 mg tablet 4 mg PO Q4H PRN nausea and 03/25/23 10/27/23 Unknown Rx vomiting #30 tabs insulin glargine 100 unit/mL (3 20 unit SUBCUT BEDTIME 06/15/23 10/27/23 06/14/23 History mL) subcutaneous pen (Basaglar KwikPen U-100 Insulin) folic acid 400 mcg tablet 400 mcg PO DAILY 10/27/23 10/27/23 Unknown History furosemide 80 mg tablet 80 mg PO QAM 10/27/23 10/27/23 Unknown History insulin aspart U-100 100 unit/mL See Rx Instructions .Route .COMPLEX 10/27/23 10/27/23 Unknown History (3 mL) subcutaneous pen (Novolog FlexPen U-100 Insulin aspart) lactulose 10 gram/15 mL oral 30 ml PO DAILY 10/27/23 10/27/23 Unknown History solution (Enulose) multivitamin 1 tab PO DAILY 10/27/23 10/27/23 Unknown History pantoprazole 40 mg tablet,delayed 40 mg PO BID 10/27/23 10/27/23 Unknown History release spironolactone 50 mg tablet 100 mg PO QAM 10/27/23 10/27/23 Unknown History triamcinolone acetonide 0.1 % 1 applic topical BID 10/27/23 10/27/23 Unknown History topical ointment zinc acetate 50 mg (zinc) capsule 50 mg PO DAILY 10/27/23 10/27/23 Unknown History Allergies Allergy/AdvReac Type Severity Reaction Status Date / Time Sulfa (Sulfonamide Allergy ALGY-Rash Verified 10/27/23 11:12 Antibiotics) Current Medications Generic Name Dose Route Start Last Admin Trade Name Freq PRN Reason Stop Dose Admin Ferrous Sulfate 325 mg 10/27/23 18:00 10/27/23 17:56 Ferrous Sulfate Ec 325 Mg Tablet PO 325 mg BID JEMIMA Administration Pantoprazole Sodium 40 mg/ 100 mls @ 20 mls/hr 10/27/23 14:00 10/28/23 06:11 Sodium Chloride IV 0 mg/hr .Q5H JEMIMA 0 mls/hr Infusion 8 MG/HR Octreotide Acetate 500 mcg/ 101 mls @ 10.1 mls/hr 10/27/23 14:00 10/28/23 06:10 Sodium Chloride IV 0 mcg/hr .Q10H JEMIMA 0 mls/hr Infusion 50 MCG/HR Piperacillin Sod/Tazobactam 50 mls @ 12.5 mls/hr 10/27/23 14:45 10/28/23 06:11 Sod 3.375 gm/ Sodium Chloride IV 0 mls/hr Q8H JEMIMA Infusion Protocol Insulin Human Lispro 0 unit 10/27/23 18:00 10/27/23 20:55 Insulin Lispro 100 Unit/1 Ml SUBCUT 4 unit WM&BEDTIME JEMIMA Administration Protocol Lactulose 20 gm 10/27/23 18:45 10/27/23 19:38 Lactulose Oral Liq 20 Gm/30 Ml Udc PO 20 gm BID JEMIMA Administration Non-Formulary Medication 550 mg 10/27/23 18:00 10/27/23 17:54 Rifaximin [Xifaxan] PO Not Given BID JEMIMA PFSH Anesthesia Medical History Diabetes 1.5, 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) Thrombocytopenia, unspecified Hyponatremia Chronic hyponatremia 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 Upper GI bleed CKD (chronic kidney disease) stage 2, GFR 60-89 ml/min -baseline Cr wnl -current renal function at baseline Hepatic encephalopathy -noted ammonia-69; mentation at baseline -on lactulose Obstructive sleep apnea -CPAP qhs Hypothyroidism -TSH wnl -continue levothyroxine Hypertension -VSS -discontinue ARB, continue Aldactone; due to low normal BP and risk of hypotension GERD (gastroesophageal reflux disease) Acute hyponatremia -improved with hydration, on salt tablets -suspect some degree of this will persist chronically Surgical History 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 @ [place], [place] History of umbilical hernia repair (04/18/21) H/O esophagogastroduodenoscopy (03/08/20) History of vasectomy History of surgery on upper extremity History of arthroscopic knee surgery History of appendectomy Family History Other Bleeding disorder CAD (coronary artery disease) Diabetes Hypertension Lung disease Psychiatric illness Denies family history of Clotting disorder Dementia Hyperlipidemia Chronic kidney disease (CKD) Suicide Anesthesia complication Cancer Stroke Social History Smoking and tobacco/nicotine status: former use of tobacco/nicotine Quit status (tobacco/nicotine): has quit using Year quit tobacco: 1981 Former quit date comment: smoked 40+ years Alcohol intake: former Substance/Drug Use: never Data Anesthesia 10/28/23 04:35 10/28/23 04:35 Short CBC 10/27/23 10/27/23 10/27/23 Range/Units 10:14 14:35 21:36 WBC 5.20 (3.29-11.43) 10^3/uL Hgb 10.60 L 9.50 L 9.50 L (11.27-16.99) g/dL Hct 34.3 L 31.3 L 31.3 L (37-53) % MCV 95.8 (82-101) fl Plt Count 164 (157-399) 10^3/cmm Neut % (Auto) 64.1 % Neut # (Auto) 3.33 (1.8-7.7) 10^3/uL 10/28/23 10/28/23 Range/Units 01:27 04:35 WBC 4.42 (3.29-11.43) 10^3/uL Hgb 9.40 L 9.40 L (11.27-16.99) g/dL Hct 30.1 L 31.1 L (37-53) % MCV 99.7 (82-101) fl Plt Count 128 L (157-399) 10^3/cmm Neut % (Auto) 53.1 % Neut # (Auto) 2.35 (1.8-7.7) 10^3/uL BMP 10/27/23 10/28/23 10:14 04:35 Sodium 137 141 Potassium 4.8 4.4 Chloride 106 113 H Carbon Dioxide 20 L 19 L BUN 25 H 28 H Creatinine 1.3 H 1.4 H Glucose 172 H 117 H Calcium 9.1 8.4 L Liver Function 10/27/23 10/28/23 Range/Units 10:14 04:35 Total Bilirubin 1.7 H 1.7 H (0.15-1.2) mg/dL AST 35 53 H (0-40) U/L ALT 30 30 (0-41) U/L Alkaline Phosphatase 111 93 (40-130) U/L Albumin 3.6 2.8 L (3.5-5.2) g/dL Urine 10/27/23 Range/Units 10:04 Urine Color Straw (Yellow) Urine Appearance Clear (CLEAR) Urine pH 6.5 (5-7) Ur Specific [place] 1.015 (1.005-1.030) Urine Protein Neg (Negative) Urine Glucose (UA) Norm (Normal) Urine Ketones Negative (Negative) Urine Nitrate Negative (Negative) Urine Bilirubin Neg (Negative) Ur Leukocyte Esterase Negative (Negative) Blood Bank 10/27/23 14:35 Blood Type A Positive Rho(D) Type Rh positive Antibody Screen Negative Coags 10/27/23 10:14 PT 17.30 H INR 1.36 H APTT 32.5 Cardiac Studies: 2 No Data to Display
[2023-10-28] MEDS: sodium chloride 0.9% 1,000 ML 30 ML IV (06:56)
[2023-10-28] MEDS: EPINEPHrine 1 mg/mL INJ XX (07:28)
[2023-10-28 08:31] LABS: Glucose Point of Care 152 mg/dL (70-110)
[2023-10-28] MEDS: ferrous sulfate EC 325 mg Tablet PO ×2 (08:46→15:24)
[2023-10-28] MEDS: lactulose oral liq 20 gm/30 mL UDC PO ×2 (08:46→15:24)
[2023-10-28] MEDS: multivitamin therapeutic Tablet 1 TAB PO (08:46)
--- NOTE | 2023-10-28 10:55 | PC.CHAP ---
Pastoral Care Encounter/Spiritual Assessment Type of Contact [] Declined senior energy market coordinator visit [] Patient/Family/Request visit [] Outpatient visit [] Follow-up visit [] Physician referral [] Code/Alert [x] Routine visit [] Staff referral [] Actively dying [] Patient sleeping [] Family support [] [] Out of room [] Palliative care [] [] Receiving care in room [] Pre-surgical visit [] Trauma [] Long length of stay [] ICU visit [] Other: Relational/Emotional Strength [] Patient feels connected with others/family/visitors/staff [] Distress [] Loneliness/isolation [] Abandonment Spirituality of Patient [x] Person of Moni [] Attends Mosque of their Moni [x] Believes in Prayer [] Reads Bible or Zoroastrian materials [] There are Spiritual issues to be addressed Safety Manager Interventions [x] Prayer [x] Active listening [] Non-anxious presence [] Spiritual/emotional support [] Crisis/trauma care [] Spiritual counseling [] Bereavement support [] Provided bereavement packet [] Provided Bible/devotional materials [] Provided toy/stuffed animal, coloring book to patient or family member [] Provided Communion [] Anointing/[place] [] Salvation [x] Completed spiritual assessment [] Other: Impact on Illness or Injury [] Angry [] Fearful [] Anxious [] Often cries [] Exhaustion [] Unable to work [] Unable to attend caodaism [] Unable to walk/stand [] Unable to read [] Unable to drive [] Unable to eat/drink [] Unable to sleep [] Unable to be with family [] Patient intubated [] Other: Summary Time spent with patient 5 min
[2023-10-28] MEDS: octreotide 500 MCG in sodium chloride 0.9% (100 ml) 100 ML 10.0999999999999996 MCG IV ×2 (11:22→20:34)
[2023-10-28] MEDS: sucralfate 1 gm/10 mL Oral Liq UDC PO ×3 (11:25→20:33)
[2023-10-28 11:28] LABS: Glucose Point of Care 283 mg/dL (70-110)
--- NOTE | 2023-10-28 11:59 | P.PN_ITS ---
Subjective 2 Subjective: Patient reports feeling a little better today. He is alert and oriented x 4. Denies overnight events. He states that he has been up a couple times since yesterday. Was able to eat this morning after the procedure. Medications: Reviewed: Yes Vitals/I&O/Wt Last Vital Signs Temp 97.2 F L 10/28/23 11:39 Pulse 70 10/28/23 11:39 Resp 20 H 10/28/23 11:39 BP 124/68 10/28/23 11:39 Pulse Ox 96 10/28/23 11:39 O2 Del Method Room Air 10/28/23 11:39 10/27/23 10/28/23 10/28/23 22:59 06:59 14:59 Intake Total 347 / 1347 1358.400 / 2705.400 1084.950 / 1084.950 Output Total 900 / 900 0 / 0 Balance -553 / 447 1358.400 / 4654.139 0821.950 / 1084.950 Weight last 48 hrs Weight 228 lb 8 oz Weight 230 lb Weight 230 lb Physical Exam 2 Narrative: General: Cooperative patient in no apparent distress. Well developed. HEENT: Normocephalic, Atraumatic. External ears normal. Nasal passages patent without drainage. MMM. Heart: RRR. No rubs or murmurs appreciated. Resp: LCTA. No respiratory distress, no use of accessory muscles. Abd: Soft, non-tender. Non-distended. Extremities: No edema. Skin: No rash or lesions on exposed areas. Neuro: No focal motor or sensory loss. Alert and oriented x 4. Data 10/28/23 04:35 10/28/23 04:35 A&P Assessment and plan (1) Acute hepatic encephalopathy: (2) Colitis: (3) Anemia: (4) 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: (5) Diabetes 1.5, managed as type 2: (6) Thrombocytopenia, unspecified: (7) Melena: Plan 68-year-old male who is admitted for hepatic encephalopathy, melena, hematemesis, colitis. Continue close inpatient monitoring. Surgery is consulted. He did have EGD this morning. Noted to have severe gastritis with duodenitis and active bleeding. Biopsies were taken and are pending. Continue Zosyn for colitis. Hgb is currently 9.4. Platelets at 128. Creatinine remains at 1.4, which is near his baseline. Will continue to follow labs to ensure hemoglobin stability. Mental status is improved. He is alert and oriented x 4. GI has ordered a brat diet. Will advance diet per their recommendations. Continue Protonix and octreotide infusion for now. Continue lactulose, rifaximin Continue other supportive care BP is stable. Continue current home medications for HTN. Will resume glucose checks and SSI for TIIDM once his diet is resumed. Continue home medications for other chronic illnesses. Code Status: Full IVF: NS at 30ml/hr DVT PPx: None GI PPx: Protonix ABx: Zosyn, rifaximin Diet: BRAT Discharge plan: Home when appropriate. Attestations 2 Medical Necessity Statement*: Will need continued hospitalization for IV antibiotics, evaluation and treatment of upper GI bleed, labs, IV fluids, diet advancement and discharge planning. Coding Level of Care Code Acute Code for Chg Fwd Moderate MDM includes number and complexity of problems actively addressed during encounter, amount and/or complexity of data reviewed/ordered and described risk of complication, morbidity or mortality of management as documented Diagnoses Acute hepatic encephalopathy K76.82 Colitis K52.9 Anemia D64.9 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
[2023-10-28] MEDS: insulin lispro 100 unit/1 mL SUBCUT ×3 (12:02→20:33)
[2023-10-28 16:40] LABS: Glucose Point of Care 220 mg/dL (70-110)
[2023-10-28 20:27] LABS: Glucose Point of Care 179 mg/dL (70-110)
[2023-10-29] VITALS: BP 121/71; PULSE 72; RESP 20; TEMP 36.8; O2SAT 97
[2023-10-29] MEDS: pantoprazole 40 MG in sodium chloride 0.9% (plus) 100 ML 20 MG IV ×3 (00:51→10:50)
[2023-10-29 04:29] VITALS: BP 160/65; PULSE 61; RESP 18; TEMP 36.4; O2SAT 97
[2023-10-29 05:24] VITALS: PULSE 60
[2023-10-29 05:55] LABS: Basophils % 0.4 %; Eosinophils % 0.5 %; Hematocrit 30.6 % (37-53); Lymphocytes # 0.5 10^3/uL (0.8-4.8); Lymphocytes % 6.4 %; Mean Corpuscular HGB Conc 30.4 g/dL (30-55); Mean Corpuscular Hemoglobin 29.3 pg (27-33); Mean Corpuscular Volume 96.5 fl (82-101); Monocytes # 0.6 10^3/uL (0.2-0.9); Monocytes % 6.7 %; Neutrophils # 7.04 10^3/uL (1.8-7.7); Neutrophils % 85.6 %; Nucleated Red Blood Cells % 0 %; Platelet Count 134 10^3/cmm (157-399); Red Blood Count 3.17 10^6/uL (3.85-5.65); Red Cell Distribution Width 15.6 % (12.1-15.1); White Blood Count 8.22 10^3/uL (3.29-11.43)
[2023-10-29 06:27] LABS: Glucose Point of Care 169 mg/dL (70-110)
[2023-10-29] MEDS: octreotide 500 MCG in sodium chloride 0.9% (100 ml) 100 ML 10.0999999999999996 MCG IV (06:27)
[2023-10-29 06:34] LABS: Alanine Aminotransferase 31 U/L (0-41); Alkaline Phosphatase 94 U/L (40-130); Anion Gap 14.7 (5-19); Aspartate Amino Transferase 44 U/L (0-40); Blood Urea Nitrogen 30 mg/dL (8-23); Calcium 8.5 mg/dL (8.5-10.5); Carbon Dioxide 19 mmol/L (22-29); Chloride 111 mmol/L (98-107); Globulin 2.6 g/dL (1.3-4.6); Glomerular Filtration Rate 43.3 mL/min (90-130); Glucose 172 mg/dL (65-115); Magnesium 2.2 mg/dL (1.7-2.3); Osmolality Calculated 300 mOsm/kg (285-295); Potassium 4.7 mmol/L (3.5-5.1); Sodium 140 mmol/L (136-145); Thyroid Stimulating Hormone 0.63 uIU/mL (0.27-4.20); Total Bilirubin 1.7 mg/dL (0.15-1.2); Total Protein 5.6 g/dL (6.6-8.7)
[2023-10-29 06:35] LABS: Creatinine Clr Calc Pharmacy 56.9375
[2023-10-29] MEDS: piperacillin-tazobactam 3.375 GM in sodium chloride 0.9% (plus) 50 ML IV (06:36)
[2023-10-29] MEDS: sucralfate 1 gm/10 mL Oral Liq UDC PO ×2 (06:40→10:50)
[2023-10-29 06:41] LABS: Folate Level > 20.0 ng/mL (4.5-32.2); Vitamin B12 > 2000 pg/mL (232-1245)
[2023-10-29 07:51] VITALS: BP 112/65; PULSE 66; RESP 18; TEMP 36.2; O2SAT 98
[2023-10-29] MEDS: levothyroxine 25 mcg Tablet PO (08:07)
[2023-10-29] MEDS: multivitamin therapeutic Tablet 1 TAB PO (08:07)
[2023-10-29] MEDS: insulin lispro 100 unit/1 mL SUBCUT ×2 (08:07→11:33)
[2023-10-29] MEDS: lactulose oral liq 20 gm/30 mL UDC PO (08:07)
[2023-10-29] MEDS: ferrous sulfate EC 325 mg Tablet PO (08:07)
[2023-10-29] MEDS: NON-FORMULARY MEDICATION (Rifaximin [Xifaxan] 550 mg tablet) 550 EACH PO (09:56)
[2023-10-29 11:20] LABS: Glucose Point of Care 152 mg/dL (70-110)
[2023-10-29 12:01] VITALS: BP 119/70; PULSE 73; RESP 20; TEMP 36.4; O2SAT 99
[2023-10-29 13:54] VITALS: BP 119/70; PULSE 73; RESP 20; TEMP 36.4; O2SAT 99
--- NOTE | 2023-10-29 15:59 | PM.DCS ---
Discharge Providers Date of Admission: 10/27/23 12:20 Date of Discharge: October 29, 2023 Attending Provider at Admission: Teddy Frost MD Attending Provider at Discharge: Bryon Wilkins DO Primary Care Provider: Floresita Bustillo DO Diagnoses at Discharge Discharge Diagnosis (1) Acute hepatic encephalopathy: Status: Resolved (2) Colitis: Status: Acute (3) Anemia: Status: Acute (4) 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: Status: Acute (5) Diabetes 1.5, managed as type 2: Status: Acute (6) Thrombocytopenia, unspecified: Status: Acute (7) Melena: Status: Resolved Reason for Visit Reason for Visit: abd pain, N/V, fall Brief History: Mr Luis Muñoz is a 68 year old man with PMH of liver cirrhosis , esophageal varices s/p TIPS , banding presents today for further evaluation of altered mental status, abdominal pain and melena. He was initially very lethargic, and unable to provide much history. He did report episodes of diarrhea which was black and bloody. He denied fever, chills, abdominal pain, chest pain, cough or any other symptoms. In the ER, labs showed a hemoglobin of 10. 6 , which is similar compared to about a week ago . patient's hemoglobin stable about a week ago. He has elevated ammonia levels up to 209, and did note that he was taking CT of the abdomen and pelvis done showed signs of acute colitis. General surgery consulted from the ER. Hospital Course Hospital Course He was admitted to the hospital, started on broad-spectrum antibiotics, and octreotide due to concern for Varices. General Surgery was consulted and took patient for EGD. Was noted to have severe gastritis, biopsies were obtained. He was restarted on his protonix and increased to BID. He was started on Zosyn initially due to concern for colitis. Patient did note that he has Carafate at home as well, and he was encouraged to restart this on discharge. His hemoglobin remained stable throughout his hospitalization. At discharge it was 9.4. He does have a chronic history of thrombocytopenia, and his platelets remained stable throughout hospitalization. His diet was slowly advanced, and he was able to tolerate oral intake without problem. He was discharged in stable and improved condition on Augmentin to complete a course for his colitis. Arrangements to follow with his PCP were made. He also arranged for follow up with his account manager trainee. Physical Exam Narrative: General: Cooperative patient in no apparent distress. Well developed. HEENT: Normocephalic, Atraumatic. External ears normal. Nasal passages patent without drainage. MMM. Heart: RRR. No rubs or murmurs appreciated. Resp: LCTA. No respiratory distress, no use of accessory muscles. Abd: Soft, non-tender. Non-distended. Extremities: No edema. Skin: No rash or lesions on exposed areas. Neuro: No focal motor or sensory loss. Alert and oriented x 4. Discharge Data Studies Completed and Pending Completed Studies During Hospitalization Category Date Time Status CT abdomen pelvis w con* [id number] Stat Cat Scan 10/27/23 10:38 Completed Pending at discharge Category Date Time Status C.Diff PCR (Lab) Routine Lab 10/27/23 20:37 Ordered Immunochemical Fecal OCB Routine Lab 10/27/23 20:37 Ordered Lactoferrin Routine Lab 10/27/23 20:37 Ordered OVA and Parasites, Conc and PE Routine Lab 10/27/23 20:37 Ordered Salmonella / Shigella / Campy Routine Lab 10/27/23 20:37 Ordered Pathology: Surgical [PTH] Routine Pth 10/28/23 07:29 Received Radiology Impressions Abdomen/Pelvis CT 10/27/23 10:38 IMPRESSION: 1. [id number] wall thickening of hepatic flexure of the colon without signs of obstruction. Acute colitis suspected. 2. Mild compression deformity superior endplate of L3 vertebra without significant retropulsion. Indeterminate age fracture. 3. Cirrhotic changes of the liver. Tips catheter in place. Cholelithiasis with minimal pericholecystic edema possibly from liver failure and adjacent colon inflammation. If concern for acute cholecystitis recommend follow-up with HIDA scan. ADDENDUM: 10/27/23 1213 Comparison made with previous CT scan dated June 15, 2023. Minimal superior endplate compression deformity of L3 vertebra is stable compatible with chronic fracture. Laboratory Results WBC 8.22 10^3/uL (3.29-11.43) 10/29/23 05:38 RBC 3.17 10^6/uL (3.85-5.65) L 10/29/23 05:38 Hgb 9.30 g/dL (11.27-16.99) L 10/29/23 05:38 Hct 30.6 % (37-53) L 10/29/23 05:38 MCV 96.5 fl (82-101) 10/29/23 05:38 MCH 29.3 pg (27-33) 10/29/23 05:38 MCHC 30.4 g/dL (30-55) 10/29/23 05:38 RDW 15.6 % (12.1-15.1) H 10/29/23 05:38 Plt Count 134 10^3/cmm (157-399) L 10/29/23 05:38 MPV 10.0 fL (7.4-10.4) 10/29/23 05:38 Neut % (Auto) 85.6 % 10/29/23 05:38 Lymph % (Auto) 6.4 % 10/29/23 05:38 [place] % (Auto) 6.7 % 10/29/23 05:38 Eos % (Auto) 0.5 % 10/29/23 05:38 Baso % (Auto) 0.4 % 10/29/23 05:38 Neut # (Auto) 7.04 10^3/uL (1.8-7.7) 10/29/23 05:38 Lymph # (Auto) 0.5 10^3/uL (0.8-4.8) L 10/29/23 05:38 [place] # (Auto) 0.6 10^3/uL (0.2-0.9) 10/29/23 05:38 Eos # (Auto) 0.0 10^3/uL (0.0-0.8) 10/29/23 05:38 Baso # (Auto) 0.0 10^3/uL (0.0-0.1) 10/29/23 05:38 Nucleated RBC % (auto) 0 % 10/29/23 05:38 Nucleated RBCs # 0.0 /100WBC 10/29/23 05:38 PT 17.30 SECONDS (12.1-14.9) H 10/27/23 10:14 INR 1.36 (0.8-1.2) H 10/27/23 10:14 APTT 32.5 SECONDS (23.9-36.7) 10/27/23 10:14 Sodium 140 mmol/L (136-145) 10/29/23 05:38 Potassium 4.7 mmol/L (3.5-5.1) 10/29/23 05:38 Chloride 111 mmol/L (98-107) H 10/29/23 05:38 Carbon Dioxide 19 mmol/L (22-29) L 10/29/23 05:38 Anion Gap 14.7 (5-19) 10/29/23 05:38 BUN 30 mg/dL (8-23) H 10/29/23 05:38 Creatinine 1.6 mg/dL (0.7-1.2) H 10/29/23 05:38 GFR Calculation 43.3 mL/min (90-130) L 10/29/23 05:38 Glucose 172 mg/dL (65-115) H 10/29/23 05:38 POC Glucose 152 mg/dL (70-110) H 10/29/23 11:17 Calculated Osmolality 300 mOsm/kg (285-295) H 10/29/23 05:38 Calcium 8.5 mg/dL (8.5-10.5) 10/29/23 05:38 Phosphorus 4.1 mg/dL (2.5-4.5) 10/28/23 04:35 Magnesium 2.2 mg/dL (1.7-2.3) 10/29/23 05:38 Total Bilirubin 1.7 mg/dL (0.15-1.2) H 10/29/23 05:38 AST 44 U/L (0-40) H 10/29/23 05:38 ALT 31 U/L (0-41) 10/29/23 05:38 Alkaline Phosphatase 94 U/L (40-130) 10/29/23 05:38 Ammonia 209 umol/L (16-60) H 10/27/23 10:14 Total Protein 5.6 g/dL (6.6-8.7) L 10/29/23 05:38 Albumin 3.0 g/dL (3.5-5.2) L 10/29/23 05:38 Globulin 2.6 g/dL (1.3-4.6) 10/29/23 05:38 Lipase 36 U/L (13-60) 10/27/23 10:14 Vitamin B12 > 2000 pg/mL (232-1245) H 10/29/23 05:38 Folate > 20.0 ng/mL (4.5-32.2) 10/29/23 05:38 TSH 0.63 uIU/mL (0.27-4.20) 10/29/23 05:38 Urine Color Straw (Yellow) 10/27/23 10:04 Urine Appearance Clear (CLEAR) 10/27/23 10:04 Urine pH 6.5 (5-7) 10/27/23 10:04 Ur Specific [place] 1.015 (1.005-1.030) 10/27/23 10:04 Urine Protein Neg (Negative) 10/27/23 10:04 Urine Glucose (UA) Norm (Normal) 10/27/23 10:04 Urine Ketones Negative (Negative) 10/27/23 10:04 Urine Blood Neg (Negative) 10/27/23 10:04 Urine Nitrate Negative (Negative) 10/27/23 10:04 Urine Bilirubin Neg (Negative) 10/27/23 10:04 Urine Urobilinogen Norm mg/dL (Negative) 10/27/23 10:04 Ur Leukocyte Esterase Negative (Negative) 10/27/23 10:04 Blood Type A Positive 10/27/23 14:35 Rho(D) Type Rh positive 10/27/23 14:35 Antibody Screen Negative 10/27/23 14:35 Vitals Last Vital Signs Temp 97.5 F L 10/29/23 13:54 Pulse 73 10/29/23 13:54 Resp 20 H 10/29/23 13:54 BP 119/70 10/29/23 13:54 Pulse Ox 99 10/29/23 13:54 O2 Del Method Room Air 10/29/23 12:01 FiO2 21 10/28/23 20:52 Discharge Plan Discharge Patient Disposition: Home Condition: Stable Prescriptions: New amoxicillin-pot clavulanate 875-125 mg tablet 1 tab PO BID Qty: 14 0RF Continued ondansetron HCl 4 mg tablet 4 mg PO Q4H PRN (Reason: nausea and vomiting) Qty: 30 0RF lidocaine 5 % adhesive patch,medicated 1 patch topical DAILY PRN (Reason: Pain) Rx Instructions: leave on most painful area for up to 12 hrs then off for 12 hours ferrous sulfate 325 mg (65 mg iron) tablet 325 mg PO BID levothyroxine 25 mcg tablet 25 mcg PO DAILY@0800 fluticasone propionate [Flonase Allergy Relief] 50 mcg/actuation Verbena,Suspension 2 spray INTRANASAL DAILY PRN (Reason: Allergy Symptoms) Xifaxan 550 mg tablet 550 mg PO BID Qty: 90 3RF midodrine 5 mg tablet 5 mg PO BID Rx Instructions: do not give last dose of day after 6PM or within 4 hrs of bedtime insulin glargine [Basaglar KwikPen U-100 Insulin] 100 unit/mL (3 mL) insulin pen 20 unit SUBCUT BEDTIME multivitamin Tablet 1 tab PO DAILY zinc acetate 50 mg (zinc) Capsule 50 mg PO DAILY folic acid 400 mcg Tablet 400 mcg PO DAILY furosemide 80 mg tablet 80 mg PO QAM triamcinolone acetonide 0.1 % Ointment 1 applic TOPICAL BID spironolactone 50 mg tablet 100 mg PO QAM Novolog FlexPen U-100 Insulin 100 unit/mL (3 mL) insulin pen See Rx Instructions .ROUTE .COMPLEX Rx Instructions: sliding scale tid Enulose 10 gram/15 mL solution 30 ml PO DAILY pantoprazole 40 mg tablet,delayed release (DR/EC) 40 mg PO BID Discharge Orders: Discharge Order (Routine); Ordered 10/29/23 Ordered By: Bryon Wilkins Referrals: Floresita Bustillo DO [Primary Care Provider] - 11/11/23 1:05 pm (Patient leaving on vacation 11/06 needs to [address] the DR BEFORE 11/06) Discharge Diet: Usual diet Discharge Activity: Resume usual activity Patient Instructions: Amoxicillin/Clavulanate Potassium (By mouth), Encephalopathy (GEN), GI Discharge Instructions, Opioid Safety Discharge Attestations Time Spent in Discharge Care*: less than 30 min Specific Discharge Activities: educating patient, educating and/or supporting family/caregiver, discussing with pcp/other providers, discussing with case finishing machine adjuster/social workers/dc planners, documenting/other paperwork and evaluating patient/reviewing data Status at Discharge: Cognitive status at discharge: cognitively intact, Behavioral status at discharge: cooperative and independent in ADL's, Quality Metrics Clinical Quality Measures [ No reported AMI, CVA or VTE this stay] Coding Level of Care Code Acute Code for [facility] Fwd Diagnoses Acute hepatic encephalopathy K76.82 Colitis K52.9 Anemia D64.9 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
== END 2023-10-29 13:45 | disposition home or self-care (01) | DRG 441 ==
LOC: ER 12:39 → MEDSURG 12:53
PROVIDERS: Surgery; Admitting Provider Student in an Organized Health Care Education/Training Program; Emergency Provider Family Medicine; PCP Family Medicine; Visit Provider Family Medicine
PROC: 0DJ08ZZ Inspection of Upper Intestinal Tract, Via Natural or Artificial Opening Endoscopic (ICD-10-PCS; CPT 43235; principal; 2023-10-28 07:00)
DX: K76.82 Hepatic encephalopathy (principal); K29.71 Gastritis, unspecified, with bleeding; I85.00 Esophageal varices without bleeding; K92.1 Melena; K52.9 Noninfective gastroenteritis and colitis, unspecified; D50.9 Iron deficiency anemia, unspecified; K75.81 Nonalcoholic steatohepatitis (NASH); K74.60 Unspecified cirrhosis of liver; E13.22 Other specified diabetes mellitus with diabetic chronic kidney disease; I12.9 Hypertensive chronic kidney disease with stage 1 through stage 4 chronic kidney disease, or unspecified chronic kidney disease; N18.2 Chronic kidney disease, stage 2 (mild); Z79.4 Long term (current) use of insulin; D69.6 Thrombocytopenia, unspecified; K80.20 Calculus of gallbladder without cholecystitis without obstruction; Z87.891 Personal history of nicotine dependence; E03.9 Hypothyroidism, unspecified; G47.33 Obstructive sleep apnea (adult) (pediatric); K29.80 Duodenitis without bleeding
CPT/HCPCS: 12345; 36415; 36416; 43239; 43255; 74177; 80053; 81003; 82140; 82607; 82746; 82962; 83690; 83735; 84100; 84443; 85014; 85018; 85025; 85610; 85730; 86850; 86900; 88305; 88342; 94660; 96361; 96372; 96374; 99285; C9113; J0171; J0330; J1100; J1815; J2354; J2371; J2405; J2543; J2704; J7030; Q9967

== ENCOUNTER 2023-11-18 08:48 | Oncology outpatient (recurring) (ONCR) | payer MEDICARE, OTHER, SELFPAY ==
[2023-11-18 09:45] LABS: Alanine Aminotransferase 27 U/L (0-41); Albumin Level 3.5 g/dL (3.5-5.2); Alkaline Phosphatase 117 U/L (40-130); Anion Gap 13.9 (5-19); Aspartate Amino Transferase 40 U/L (0-40); Blood Urea Nitrogen 20 mg/dL (8-23); Calcium 8.8 mg/dL (8.5-10.5); Carbon Dioxide 22 mmol/L (22-29); Chloride 106 mmol/L (98-107); Globulin 2.6 g/dL (1.3-4.6); Glomerular Filtration Rate 66.8 mL/min (90-130); Glucose 108 mg/dL (65-115); Osmolality Calculated 289 mOsm/kg (285-295); Potassium 3.9 mmol/L (3.5-5.1); Sodium 138 mmol/L (136-145); Total Bilirubin 1.1 mg/dL (0.15-1.2); Total Protein 6.1 g/dL (6.6-8.7)
[2023-11-18 11:09] LABS: Basophils # 0.1 10^3/uL (0.0-0.1); Eosinophils # 0.4 10^3/uL (0.0-0.8); Eosinophils % 4.1 %; Hematocrit 36.4 % (37-53); Mean Corpuscular HGB Conc 31.3 g/dL (30-55); Mean Corpuscular Hemoglobin 29.2 pg (27-33); Mean Corpuscular Volume 93.3 fl (82-101); Mean Platelet Volume 11.1 fL (7.4-10.4); Monocytes # 1.6 10^3/uL (0.2-0.9); Neutrophils # 6.82 10^3/uL (1.8-7.7); Neutrophils % 68.7 %; Nucleated Red Blood Cells % 0 %; Platelet Count 128 10^3/cmm (157-399); Red Cell Distribution Width 16.1 % (12.1-15.1); White Blood Count 9.93 10^3/uL (3.29-11.43)
== END 2023-12-13 23:59 | disposition home or self-care (01) ==
LOC: ONCMED 08:48
PROVIDERS: Nurse Practitioner Family; PCP Family Medicine; Visit Provider Internal Medicine Medical Oncology
DX: D64.9 Anemia, unspecified (principal)
CPT/HCPCS: 36415; 80053; 85025

== ENCOUNTER 2024-02-06 09:02 | Oncology outpatient (recurring) (ONCR) | payer MEDICARE, OTHER, SELFPAY ==
[2024-01-27 14:55] LABS: Basophils # 0.1 10^3/uL (0.0-0.1); Basophils % 1.3 %; Eosinophils # 0.2 10^3/uL (0.0-0.8); Eosinophils % 2.8 %; Lymphocytes # 1.2 10^3/uL (0.8-4.8); Lymphocytes % 19.3 %; Mean Corpuscular Hemoglobin 25.6 pg (27-33); Mean Corpuscular Volume 85.2 fl (82-101); Mean Platelet Volume 11.1 fL (7.4-10.4); Monocytes # 1.2 10^3/uL (0.2-0.9); Monocytes % 20.3 %; Neutrophils # 3.38 10^3/uL (1.8-7.7); Nucleated Red Blood Cells % 0 %; Platelet Count 147 10^3/cmm (157-399); Red Blood Count 3.17 10^6/uL (3.85-5.65); Red Cell Distribution Width 16.2 % (12.1-15.1); White Blood Count 6.05 10^3/uL (3.29-11.43)
[2024-01-27 15:18] LABS: Alanine Aminotransferase 41 U/L (0-41); Albumin Level 3.4 g/dL (3.5-5.2); Alkaline Phosphatase 87 U/L (40-130); Anion Gap 14.8 (5-19); Aspartate Amino Transferase 41 U/L (0-40); Blood Urea Nitrogen 23 mg/dL (8-23); Calcium 8.9 mg/dL (8.5-10.5); Carbon Dioxide 20 mmol/L (22-29); Chloride 106 mmol/L (98-107); Creatinine Clr Calc Pharmacy 74.2717; Globulin 2.5 g/dL (1.3-4.6); Glomerular Filtration Rate 60.2 mL/min (90-130); Glucose 60 mg/dL (65-115); Iron 17 ug/dL (59-158); Osmolality Calculated 286 mOsm/kg (285-295); Percent Saturation 5.9 % (20-50); Potassium 3.8 mmol/L (3.5-5.1); Sodium 137 mmol/L (136-145); Total Bilirubin 1.2 mg/dL (0.15-1.2); Total Iron Binding Capacity 288 mcg/dl; Total Protein 5.9 g/dL (6.6-8.7); Unsaturated Iron Binding 271 ug/dL (112-347)
[2024-01-30] MEDS: ferric carboxy (PYXIS) 750 MG in sodium chloride 0.9% (100 ml) 100 ML 345 MG IV (09:42)
[2024-01-30 09:49] VITALS: BP 109/62; PULSE 71; RESP 16; TEMP 36.6; O2SAT 99
[2024-01-30 10:14] VITALS: BP 143/77; PULSE 70; RESP 16; O2SAT 98
[2024-02-06 09:20] LABS: Basophils % 1.4 %; Eosinophils # 0.1 10^3/uL (0.0-0.8); Eosinophils % 3.8 %; Hematocrit 26.9 % (37-53); Lymphocytes # 0.5 10^3/uL (0.8-4.8); Lymphocytes % 18.4 %; Mean Corpuscular HGB Conc 29.7 g/dL (30-55); Mean Corpuscular Hemoglobin 27.4 pg (27-33); Mean Corpuscular Volume 92.1 fl (82-101); Mean Platelet Volume 10.5 fL (7.4-10.4); Monocytes # 0.5 10^3/uL (0.2-0.9); Neutrophils # 1.76 10^3/uL (1.8-7.7); Neutrophils % 60.1 %; Nucleated Red Blood Cells % 0 %; Platelet Count 113 10^3/cmm (157-399); Red Blood Count 2.92 10^6/uL (3.85-5.65); Red Cell Distribution Width 26.3 % (12.1-15.1); White Blood Count 2.93 10^3/uL (3.29-11.43)
[2024-02-06] MEDS: ferric carboxy (PYXIS) 750 MG in sodium chloride 0.9% (100 ml) 100 ML 345 MG IV (09:25)
[2024-02-06 09:36] LABS: Alanine Aminotransferase 35 U/L (0-41); Albumin Level 3.1 g/dL (3.5-5.2); Alkaline Phosphatase 87 U/L (40-130); Anion Gap 14.4 (5-19); Aspartate Amino Transferase 45 U/L (0-40); Blood Urea Nitrogen 17 mg/dL (8-23); Calcium 7.8 mg/dL (8.5-10.5); Carbon Dioxide 17 mmol/L (22-29); Chloride 109 mmol/L (98-107); Creatinine Clr Calc Pharmacy 74.2717; Globulin 2.3 g/dL (1.3-4.6); Glomerular Filtration Rate 60.2 mL/min (90-130); Glucose 144 mg/dL (65-115); Osmolality Calculated 286 mOsm/kg (285-295); Potassium 4.4 mmol/L (3.5-5.1); Sodium 136 mmol/L (136-145); Total Bilirubin 1.2 mg/dL (0.15-1.2); Total Protein 5.4 g/dL (6.6-8.7)
[2024-02-06] MEDS: acetaminophen 325 mg Tablet 650 MG PO (10:25)
[2024-02-06] MEDS: diphenhydrAMINE 25 mg Capsule PO (10:26)
[2024-02-06 11:28] VITALS: BP 102/66; PULSE 73; RESP 18; TEMP 36.7; O2SAT 97
[2024-02-06 11:45] VITALS: BP 113/72; PULSE 70; RESP 17; TEMP 36.4; O2SAT 94
[2024-02-06 12:00] VITALS: BP 112/68; PULSE 69; RESP 18; TEMP 36.4; O2SAT 98
[2024-02-06 12:30] VITALS: BP 113/66; PULSE 73; RESP 18; TEMP 36.4; O2SAT 91
[2024-02-06 13:25] VITALS: BP 120/75; PULSE 76; RESP 18; TEMP 36.6; O2SAT 96
[2024-02-06 13:40] VITALS: BP 120/78; PULSE 76; RESP 17; TEMP 36.6; O2SAT 98
[2024-02-06] MEDS: FUROsemide 10 mg/mL SDV 2mL 20 MG IVP (13:41)
== END 2024-02-12 23:59 | disposition home or self-care (01) ==
PROVIDERS: Nurse Practitioner Family; PCP Family Medicine; Visit Provider Internal Medicine Medical Oncology
DX: Z53.9 Procedure and treatment not carried out, unspecified reason; D69.6 Thrombocytopenia, unspecified; D50.0 Iron deficiency anemia secondary to blood loss (chronic)
CPT/HCPCS: 36415; 36430; 80053; 83540; 83550; 85025; 86850; 86900; 86920; 96365; 96375; 99214; J1439; J1940; P9016

== ENCOUNTER 2024-02-07 12:06 | Outpatient (CLI) | payer MEDICARE, OTHER, SELFPAY | END 2024-02-07 12:07 | disposition home or self-care (01) | LOC: LAB 12:08 | PROVIDERS: PCP Family Medicine; Visit Provider Nurse Practitioner Family | DX: D69.6 Thrombocytopenia, unspecified (principal) | CPT/HCPCS: 82274 ==

== ENCOUNTER 2024-03-12 16:00 | Oncology outpatient (recurring) (ONCR) | payer MEDICARE, OTHER, SELFPAY ==
[2024-03-05 09:34] LABS: Basophils # 0.1 10^3/uL (0.0-0.1); Basophils % 2.3 %; Eosinophils # 0.3 10^3/uL (0.0-0.8); Eosinophils % 6.4 %; Hematocrit 28.8 % (37-53); Lymphocytes # 0.6 10^3/uL (0.8-4.8); Lymphocytes % 15.6 %; Mean Corpuscular HGB Conc 30.6 g/dL (30-55); Mean Corpuscular Hemoglobin 31.5 pg (27-33); Mean Corpuscular Volume 103.2 fl (82-101); Monocytes # 0.6 10^3/uL (0.2-0.9); Monocytes % 15.9 %; Neutrophils # 2.32 10^3/uL (1.8-7.7); Neutrophils % 59.5 %; Nucleated Red Blood Cells % 0 %; Platelet Count 135 10^3/cmm (157-399); Red Blood Count 2.79 10^6/uL (3.85-5.65); Red Cell Distribution Width 19.9 % (12.1-15.1)
[2024-03-05 10:05] LABS: Alanine Aminotransferase 26 U/L (0-41); Albumin Level 2.9 g/dL (3.5-5.2); Alkaline Phosphatase 87 U/L (40-130); Anion Gap 14.9 (5-19); Aspartate Amino Transferase 34 U/L (0-40); Blood Urea Nitrogen 20 mg/dL (8-23); Calcium 7.9 mg/dL (8.5-10.5); Carbon Dioxide 17 mmol/L (22-29); Chloride 112 mmol/L (98-107); Ferritin 90 ng/mL (30-400); Globulin 2.4 g/dL (1.3-4.6); Glomerular Filtration Rate 74.3 mL/min (90-130); Glucose 158 mg/dL (65-115); Iron 117 ug/dL (59-158); Osmolality Calculated 296 mOsm/kg (285-295); Percent Saturation 44.8 % (20-50); Potassium 3.9 mmol/L (3.5-5.1); Sodium 140 mmol/L (136-145); Total Iron Binding Capacity 261 mcg/dl; Total Protein 5.3 g/dL (6.6-8.7); Unsaturated Iron Binding 144 ug/dL (112-347)
[2024-03-12 16:10] LABS: Basophils # 0.1 10^3/uL (0.0-0.1); Basophils % 1.4 %; Eosinophils # 0.3 10^3/uL (0.0-0.8); Eosinophils % 5.8 %; Hematocrit 29.5 % (37-53); Lymphocytes # 0.6 10^3/uL (0.8-4.8); Lymphocytes % 12.5 %; Mean Corpuscular HGB Conc 31.2 g/dL (30-55); Mean Corpuscular Hemoglobin 31.4 pg (27-33); Mean Corpuscular Volume 100.7 fl (82-101); Mean Platelet Volume 11.2 fL (7.4-10.4); Monocytes # 0.7 10^3/uL (0.2-0.9); Monocytes % 13.7 %; Neutrophils # 3.31 10^3/uL (1.8-7.7); Neutrophils % 66.6 %; Nucleated Red Blood Cells % 0 %; Platelet Count 144 10^3/cmm (157-399); Red Blood Count 2.93 10^6/uL (3.85-5.65); Red Cell Distribution Width 18.1 % (12.1-15.1); White Blood Count 4.97 10^3/uL (3.29-11.43)
[2024-03-12 16:27] LABS: Alanine Aminotransferase 23 U/L (0-41); Alkaline Phosphatase 101 U/L (40-130); Anion Gap 14.8 (5-19); Aspartate Amino Transferase 35 U/L (0-40); Blood Urea Nitrogen 15 mg/dL (8-23); Carbon Dioxide 21 mmol/L (22-29); Chloride 103 mmol/L (98-107); Creatinine Clr Calc Pharmacy 93.2276; Globulin 2.3 g/dL (1.3-4.6); Glomerular Filtration Rate 74.3 mL/min (90-130); Glucose 136 mg/dL (65-115); Magnesium 1.7 mg/dL (1.7-2.3); Osmolality Calculated 283 mOsm/kg (285-295); Potassium 3.8 mmol/L (3.5-5.1); Sodium 135 mmol/L (136-145); Total Bilirubin 1.2 mg/dL (0.15-1.2); Total Protein 5.3 g/dL (6.6-8.7)
== END 2024-03-14 23:59 | disposition home or self-care (01) ==
PROVIDERS: Nurse Practitioner Family; PCP Family Medicine; Visit Provider Internal Medicine Medical Oncology
DX: Z53.9 Procedure and treatment not carried out, unspecified reason (principal); D64.9 Anemia, unspecified
CPT/HCPCS: 36415; 80053; 82728; 83540; 83550; 83735; 85025; 86850; 86900; 99214

== ENCOUNTER 2024-04-03 08:35 | Oncology outpatient (recurring) (ONCR) | payer MEDICARE, OTHER, SELFPAY ==
[2024-03-25 15:23] LABS: Basophils # 0.1 10^3/uL (0.0-0.1); Basophils % 1.9 %; Eosinophils # 0.2 10^3/uL (0.0-0.8); Hematocrit 30.6 % (37-53); Lymphocytes # 0.7 10^3/uL (0.8-4.8); Lymphocytes % 17.7 %; Mean Corpuscular HGB Conc 30.7 g/dL (30-55); Mean Corpuscular Hemoglobin 30.3 pg (27-33); Mean Corpuscular Volume 98.7 fl (82-101); Monocytes # 0.8 10^3/uL (0.2-0.9); Monocytes % 20.2 %; Neutrophils # 2.08 10^3/uL (1.8-7.7); Neutrophils % 55.9 %; Nucleated Red Blood Cells % 0 %; Platelet Count 109 10^3/cmm (157-399); Red Cell Distribution Width 15.1 % (12.1-15.1); White Blood Count 3.72 10^3/uL (3.29-11.43)
[2024-03-25 15:47] LABS: Alanine Aminotransferase 25 U/L (0-41); Albumin Level 3.1 g/dL (3.5-5.2); Alkaline Phosphatase 109 U/L (40-130); Anion Gap 14.1 (5-19); Aspartate Amino Transferase 42 U/L (0-40); Blood Urea Nitrogen 20 mg/dL (8-23); Calcium 8.5 mg/dL (8.5-10.5); Carbon Dioxide 21 mmol/L (22-29); Chloride 110 mmol/L (98-107); Globulin 2.4 g/dL (1.3-4.6); Glomerular Filtration Rate 40.3 mL/min (90-130); Glucose 148 mg/dL (65-115); Osmolality Calculated 297 mOsm/kg (285-295); Potassium 4.1 mmol/L (3.5-5.1); Sodium 141 mmol/L (136-145); Total Bilirubin 1.1 mg/dL (0.15-1.2); Total Protein 5.5 g/dL (6.6-8.7)
[2024-03-26 10:36] LABS: Iron 30 ug/dL (59-158); Percent Saturation 11.1 % (20-50); Total Iron Binding Capacity 270 mcg/dl; Unsaturated Iron Binding 240 ug/dL (112-347)
[2024-03-27 09:43] VITALS: BP 122/67; PULSE 85; RESP 16; TEMP 36.3; O2SAT 96
[2024-03-27] MEDS: ferric carboxy (PYXIS) 750 MG in sodium chloride 0.9% (100 ml) 100 ML 345 MG IV (09:58)
[2024-03-27 10:24] VITALS: BP 125/68; PULSE 70; TEMP 36.7; O2SAT 96
[2024-04-03 08:43] VITALS: BP 130/74; PULSE 65; RESP 16; TEMP 36.6; O2SAT 97
[2024-04-03] MEDS: ferric carboxy (PYXIS) 750 MG in sodium chloride 0.9% (100 ml) 100 ML 345 MG IV (09:04)
[2024-04-03 09:30] VITALS: BP 109/68; PULSE 63; RESP 16; TEMP 36.7; O2SAT 98
== END 2024-04-13 23:59 | disposition home or self-care (01) ==
PROVIDERS: Nurse Practitioner Family; PCP Family Medicine; Visit Provider Internal Medicine Medical Oncology
DX: Z53.9 Procedure and treatment not carried out, unspecified reason (principal); Z79.899 Other long term (current) drug therapy; D50.0 Iron deficiency anemia secondary to blood loss (chronic)
CPT/HCPCS: 36415; 80053; 83540; 83550; 85025; 96365; J1439

== ENCOUNTER 2024-04-23 08:48 | Oncology outpatient (recurring) (ONCR) | payer MEDICARE, OTHER, SELFPAY ==
[2024-04-23 09:25] LABS: Basophils # 0.1 10^3/uL (0.0-0.1); Basophils % 2.3 %; Eosinophils # 0.2 10^3/uL (0.0-0.8); Eosinophils % 5.7 %; Hematocrit 41.7 % (37-53); Lymphocytes # 0.6 10^3/uL (0.8-4.8); Lymphocytes % 14.4 %; Mean Corpuscular HGB Conc 32.4 g/dL (30-55); Mean Corpuscular Hemoglobin 31.7 pg (27-33); Mean Corpuscular Volume 97.9 fl (82-101); Mean Platelet Volume 10.4 fL (7.4-10.4); Monocytes # 0.6 10^3/uL (0.2-0.9); Monocytes % 16.2 %; Neutrophils # 2.37 10^3/uL (1.8-7.7); Neutrophils % 61.1 %; Nucleated Red Blood Cells % 0 %; Platelet Count 107 10^3/cmm (157-399); Red Blood Count 4.26 10^6/uL (3.85-5.65); Red Cell Distribution Width 16.6 % (12.1-15.1); White Blood Count 3.88 10^3/uL (3.29-11.43)
[2024-04-23 09:53] LABS: Alanine Aminotransferase 30 U/L (0-41); Albumin Level 3.5 g/dL (3.5-5.2); Alkaline Phosphatase 117 U/L (40-130); Anion Gap 12.6 (5-19); Aspartate Amino Transferase 37 U/L (0-40); Blood Urea Nitrogen 22 mg/dL (8-23); Calcium 8.6 mg/dL (8.5-10.5); Carbon Dioxide 22 mmol/L (22-29); Chloride 106 mmol/L (98-107); Creatinine Clr Calc Pharmacy 82.7731; Ferritin 290 ng/mL (30-400); Globulin 2.9 g/dL (1.3-4.6); Glomerular Filtration Rate 66.6 mL/min (90-130); Glucose 175 mg/dL (65-115); Iron 135 ug/dL (59-158); Osmolality Calculated 290 mOsm/kg (285-295); Percent Saturation 50.5 % (20-50); Potassium 4.6 mmol/L (3.5-5.1); Sodium 136 mmol/L (136-145); Total Bilirubin 1.3 mg/dL (0.15-1.2); Total Iron Binding Capacity 267 mcg/dl; Total Protein 6.4 g/dL (6.6-8.7); Unsaturated Iron Binding 132 ug/dL (112-347)
--- NOTE | 2024-04-24 06:15 | USR_ITS ---
PROCEDURE INFORMATION: Exam: US Abdomen Complete Exam date and time: 04/24/2024 6:43 AM Age: 69 years old Clinical indication: Vomiting; Additional info: Spontaneous vomiting TECHNIQUE: Imaging protocol: Real-time ultrasound of the abdomen with image documentation. Complete exam. COMPARISON: US paracentesis radha cook [id number] 01/10/2022 11:03 AM FINDINGS: Liver: Normal. No mass. Gallbladder: Multiple gallstones. There is no gallbladder wall thickening. Partial gallbladder contraction. Biliary ducts: Normal. No stones. No dilation. CBD 4 mm Pancreas: Visualized pancreas is unremarkable. Right kidney: No mass. No hydronephrosis. 9.6 cm x 4.3 cm x 4.8 cm Left kidney: Normal. No mass. No hydronephrosis. 10.7 cm x 5.3 cm x 5.2 cm Spleen: Normal. No splenomegaly. 14 cm x 13 cm x 5 cm Aorta: Normal. No aneurysm. Inferior vena cava: Normal. US/US abdomen complete* [id number] IMPRESSION: 1. Partial contraction of the gallbladder with multiple gallstones 2. Otherwise negative abdominal sonogram
== END 2024-05-14 23:59 | disposition home or self-care (01) ==
LOC: ONCMED 04-24 06:23 → RAD 04-25 00:01
PROVIDERS: Nurse Practitioner Family; PCP Family Medicine; Visit Provider Nurse Practitioner
DX: Z53.9 Procedure and treatment not carried out, unspecified reason (principal); K74.60 Unspecified cirrhosis of liver; K80.20 Calculus of gallbladder without cholecystitis without obstruction; K75.81 Nonalcoholic steatohepatitis (NASH); R11.10 Vomiting, unspecified; K82.0 Obstruction of gallbladder
CPT/HCPCS: 36415; 76700; 80053; 82728; 83540; 83550; 85025; 99214

== ENCOUNTER 2024-07-14 14:30 | Oncology outpatient (recurring) (ONCR) | payer MEDICARE, OTHER, SELFPAY ==
[2024-06-30 10:08] LABS: Basophils # 0.1 10^3/uL (0.0-0.1); Basophils % 1.6 %; Eosinophils # 0.2 10^3/uL (0.0-0.8); Eosinophils % 6.4 %; Hematocrit 34.6 % (37-53); Lymphocytes # 0.6 10^3/uL (0.8-4.8); Lymphocytes % 15.8 %; Mean Corpuscular HGB Conc 31.2 g/dL (30-55); Mean Corpuscular Volume 99.4 fl (82-101); Mean Platelet Volume 10.8 fL (7.4-10.4); Monocytes # 0.5 10^3/uL (0.2-0.9); Monocytes % 14.5 %; Neutrophils # 2.29 10^3/uL (1.8-7.7); Neutrophils % 61.4 %; Nucleated Red Blood Cells % 0 %; Platelet Count 114 10^3/cmm (157-399); Red Blood Count 3.48 10^6/uL (3.85-5.65); Red Cell Distribution Width 14.7 % (12.1-15.1); White Blood Count 3.73 10^3/uL (3.29-11.43)
[2024-06-30 10:23] LABS: Alanine Aminotransferase 20 U/L (0-41); Albumin Level 3.1 g/dL (3.5-5.2); Alkaline Phosphatase 109 U/L (40-130); Anion Gap 17.2 (5-19); Aspartate Amino Transferase 27 U/L (0-40); Blood Urea Nitrogen 20 mg/dL (8-23); Calcium 8.7 mg/dL (8.5-10.5); Carbon Dioxide 20 mmol/L (22-29); Chloride 109 mmol/L (98-107); Ferritin 69 ng/mL (30-400); Globulin 2.7 g/dL (1.3-4.6); Glomerular Filtration Rate 66.6 mL/min (90-130); Glucose 154 mg/dL (65-115); Iron 73 ug/dL (59-158); Osmolality Calculated 300 mOsm/kg (285-295); Percent Saturation 27.9 % (20-50); Potassium 4.2 mmol/L (3.5-5.1); Sodium 142 mmol/L (136-145); Total Bilirubin 1.1 mg/dL (0.15-1.2); Total Iron Binding Capacity 261 mcg/dl; Total Protein 5.8 g/dL (6.6-8.7); Unsaturated Iron Binding 188 ug/dL (112-347)
[2024-07-14 14:22] VITALS: BP 121/65; PULSE 76; RESP 16; TEMP 36.9; O2SAT 94
[2024-07-14] MEDS: ferric carboxy (PYXIS) 750 MG in sodium chloride 0.9% (100 ml) 100 ML 345 MG IV (15:12)
[2024-07-14 15:44] VITALS: BP 122/70; PULSE 68; TEMP 36.4; O2SAT 95
== END 2024-07-14 23:59 | disposition home or self-care (01) ==
PROVIDERS: Internal Medicine Medical Oncology; PCP Family Medicine; Visit Provider Nurse Practitioner
DX: Z53.9 Procedure and treatment not carried out, unspecified reason (principal); D50.0 Iron deficiency anemia secondary to blood loss (chronic); Z79.899 Other long term (current) drug therapy
CPT/HCPCS: 36415; 80053; 82728; 83540; 83550; 85025; 96365; 99214; J1439

== ENCOUNTER 2024-07-21 10:11 | Oncology outpatient (recurring) (ONCR) | payer MEDICARE, OTHER, SELFPAY ==
[2024-07-21 11:01] VITALS: BP 130/72; PULSE 71; RESP 15; TEMP 37.3; O2SAT 98
[2024-07-21] MEDS: ferric carboxy (PYXIS) 750 MG in sodium chloride 0.9% (100 ml) 100 ML 345 MG IV (11:06)
[2024-07-21 11:43] VITALS: BP 123/72; PULSE 61; RESP 15; TEMP 37.3; O2SAT 97
== END 2024-08-14 23:59 | disposition home or self-care (01) ==
PROVIDERS: PCP Family Medicine; Visit Provider Nurse Practitioner
DX: D50.0 Iron deficiency anemia secondary to blood loss (chronic) (principal); Z79.899 Other long term (current) drug therapy
CPT/HCPCS: 96365; J1439

== ENCOUNTER 2024-08-23 12:24 | Emergency (ER) | payer MEDICARE, OTHER, SELFPAY ==
[2024-08-23] VITALS (33 sets, daily range): BP systolic 98–129; BP diastolic 48–66; PULSE 79–95; RESP 16–24; TEMP 38; O2SAT 93–99; BMI 30.8
--- NOTE | 2024-08-23 13:24 | XRR_ITS ---
PROCEDURE INFORMATION: Exam: XR Chest Exam date and time: 08/23/2024 1:40 PM Age: 69 years old Clinical indication: Other: AMS TECHNIQUE: Imaging protocol: Radiologic exam of the chest. Views: 1 view. Total images: 1 COMPARISON: CR XR chest 1V portable [id number] 06/15/2023 6:08 PM FINDINGS: Lungs: Shallow lung volumes, minimal density at left lung base suggesting atelectasis. Pleural spaces: Blunting of the left costophrenic angle, consistent with small left pleural effusion or pleural thickening. Heart/Mediastinum: Cardiomediastinal silhouette is stable.. Bones/joints: No acute osseous abnormality identified. XR/XR chest 1V portable [id number] IMPRESSION: Mild atelectasis suspected at left lung base with trace left-sided pleural effusion.
--- NOTE | 2024-08-23 13:26 | ED_ITS ---
HPI - Altered Mental Status 2 General: Chief Complaint: Altered Mental Status Stated Complaint: ams Time Seen by Provider: 08/23/24 13:03 Source: patient and family Mode of arrival: EMS Limitations: no limitations History of Present Illness: This patient was transported to the emergency department by family today. 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 reports that he had dark stools and has had a total of 5 bowel movements with the most recent ones being bright red blood. She states he is also had 1 episode of emesis which was bloody this morning. He has a history of what sounds like nonalcoholic cirrhosis although there was some alcohol indiscretion for a few years in his past. He previously he had liver failure with ascites and was followed by the liver transplant team at [facility]. He subsequently underwent a TIPS procedure and improved and was taken off the transplant list. He does have a history of gastric varices and has had those treated on a number of times. reports he has been very hoahaoism about taking his lactulose as prescribed. He does not drink alcohol. He has not been exposed to any infectious disease that they are aware. Related Data Home Medications ?Medication ?Instructions ?Recorded ?Confirmed furosemide 80 mg tablet 80 mg PO BID 08/23/24 insulin aspart U-100 100 unit/mL 5 - 20 unit SUBCUT QI D 08/23/24 08/23/24 (3 mL) subcutaneous pen (Novolog FlexPen U-100 Insulin aspart) insulin glargine 100 unit/mL (3 25 unit SUBCUT QPM 04/0808/23/24 mL) subcutaneous pen (Basaglar KwikPen U-100 Insulin) levothyroxine 25 mcg tablet 25 mcg PO QAM 08/23/2404/08 lorazepam 0.5 mg tablet 0.5 mg PO DAILY 08/23/2404/08 midodrine 5 mg tablet 5 mg PO TID 08/23/24 5 ondansetron 8 mg disintegrating 8 mg PO PRN PRN nauesa 08/23/24 08/23/24 tablet pantoprazole 40 mg tablet,delayed 40 mg PO BID 5 08/23/24 release spironolactone 50 mg tablet 100 - 150 mg PO DAILY PRN swelling 08/23/24 08/23/24 sucralfate 1 gram tablet 1 g PO QID 08/23/24 08/23/24 Previous Rx's ?Medication ?Instructions ?Recorded rifaximin 550 mg tablet (Xifaxan) 550 mg PO BID #90 ta bs 08/15/21 Allergies Allergy/AdvReac Type Severity Reaction Status Date / Time Sulfa (Sulfonamide Allergy ALGY-Rash Verified 06/30/24 11:15 Antibiotics) Review of Systems 2 Const: Reports: fever(s); Denies: chills Eyes: Denies: change in vision ENMT: Denies: throat pain, odynophagia, nasal discharge or nasal congestion Card: Denies: chest pain, palpitations, irregular heart rhythm, syncope or pre-syncope Resp: Denies: dyspnea, productive cough or non-productive cough GI: Reports: hematemesis and hematochezia; Denies: abdominal pain : Denies: flank pain, difficulty urinating, dysuria or urinary frequency Musc: Denies: neck pain, back pain, extremity pain or extremity swelling Skin/Breast: Denies: rash Neuro: Denies: headache(s), numbness in extremities or weakness in extremities Endo: Denies: polyuria, polydipsia or tired all the time PFSH ED 2 PFSH: Medical History Diabetes 1.5, 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) Thrombocytopenia, unspecified Hyponatremia Chronic hyponatremia 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 Upper GI bleed CKD (chronic kidney disease) stage 2, GFR 60-89 ml/min -baseline Cr wnl -current renal function at baseline Hepatic encephalopathy -noted ammonia-69; mentation at baseline -on lactulose Obstructive sleep apnea -CPAP qhs Hypothyroidism -TSH wnl -continue levothyroxine Hypertension -VSS -discontinue ARB, continue Aldactone; due to low normal BP and risk of hypotension GERD (gastroesophageal reflux disease) Acute hyponatremia -improved with hydration, on salt tablets -suspect some degree of this will persist chronically Surgical History 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 @ [place], [place] History of umbilical hernia repair (04/18/21) H/O esophagogastroduodenoscopy (03/08/20) History of vasectomy History of surgery on upper extremity History of arthroscopic knee surgery History of appendectomy Family History Other Bleeding disorder CAD (coronary artery disease) Diabetes Hypertension Lung disease Psychiatric illness Denies family history of Clotting disorder Dementia Hyperlipidemia Chronic kidney disease (CKD) Suicide Anesthesia complication Cancer Stroke Social History Smoking and tobacco/nicotine status: former use of tobacco/nicotine Quit status (tobacco/nicotine): has quit using Year quit tobacco: 1981 Former quit date comment: smoked 40+ years Alcohol intake: former Substance/Drug Use: never Physical Exam 2 Narrative: Patient appears to be comfortable. He will open eyes to voice and will answer questions with brief 1 or 2 word answers. Const: COMMON NORMALS: average body habitus and alert GENERAL APPEARANCE: c omfortable and well kempt HENMT: COMMON NORMALS: Normal external nose present, Normal nasal mucous membranes and turbinates present and moist oral mucous membranes FACE & SINUS: normal facial exam NOSE: Normal external nose present and Normal nasal mucous membranes and turbinates present Eye: COMMON NORMALS: Equal, round and reactive pupils present, conjunctivae normal and no scleral icterus CONJUNCTIVA: Yes conjunctivae normal PUPIL: Yes Equal, round and reactive pupils present Neck/C-Spine: COMMON NORMALS: full ROM, no lymphadenopathy and Thyroid normal THYROID: Thyroid normal Chest: COMMONS NORMALS: normal inspection of the chest Resp: COMMON NORMALS: normal respiratory effort, No use of accessory muscles and clear to auscultation bilaterally AUSCULTATION: clear to auscultation bilaterally Cardio: COMMON NORMALS: regular rate, regular rhythm, No murmurs present (Cardio) and Peripheral pulses 2+ throughout RATE: regular rate RHYTHM: r egular rhythm PERIPHERAL PULSES: Peripheral pulses 2+ throughout GI: COMMON NORMALS: Normal to inspection, nondistended, normoactive bowel sounds present, Soft to palpation, non-tender and no masses PALPATION: Yes Soft to palpation Back/Pelvis: COMMON NORMALS: no thoracic nor lumbar tenderness and straight leg raise negative bilaterally Extremity: COMMON NORMALS: normal to inspection, full ROM, capillary refill normal, no calf tenderness and no pedal edema Neuro: COMMON NORMALS: moves all extremities, no focal motor deficits and no sensory deficits noted SENSORIUM/ORIENTATION: Yes alert Psych: APPEARANCE: Yes well kempt Skin: COMMON NORMALS: no rashes or lesions noted, no wounds and turgor normal GENERAL SKIN EXAM: no rashes or lesions noted and turgor normal Course 2 Reevaluation(s): Reevaluation #1: Patient remained stable. Discussed current findings with family. He has not had any active emesis since arrival. We will continue to discuss with [facility] regarding plans Time: 17:38 Reevaluation #2: Reviewed and discussed with consulting turbine measurements engineer of [facility] who agrees to except the patient. She made treatment recommendations. The patient still remains clinically stable. Time: 18:26 Reevaluation #3: Patient continues to remain stable pending bed assignment at [facility]. The plan will be to continue his octreotide, supportive care and reassessment as indicated. Time: 21:49 Consultations: Consultation #1: [facility] excepted patient Time: 18:27 Vital Signs: Vital signs: Vital Signs Temperature 100.4 F H 08/23/24 12:27 Pulse Rate 88 08/23/24 18:20 Respiratory Rate 16 08/23/24 12:27 Blood Pressure 122/56 08/23/24 20:30 Pulse Oximetry 94 08/23/24 20:30 Oxygen Delivery Me thod Room Air 08/23/24 12:27 MDM - Altered Mental Status Medical Decision Making This patient presented to the emergency department accompanied by his . She states that he has been a little less vigorous and active and interactive today and she is also noted that he had several loose stools as well as bloody stools today and a 1 episode of bloody emesis. Had a longstanding history of nonalcoholic cirrhosis that status post TIPS procedure and was taken off the transplant list. Also has a history of esophageal varices that required multiple interventions in the past. He has had a history of elevated ammonia levels as well which has been affected his mentation. His workup included evaluating for any source of potential fever, ensuring his hemoglobin is stable initiating treatment for gastritis and possible esophageal varices. Because of the concern about variceal bleeding decision was made early on that he needed to be transferred to a GI capable facility. He normal cares obtained at [facility]. Initially facilities closer to this location for cannabis but they had no bed availability. [facility] was contacted and the GI service there accepted the patient and put him on a high-priority for bed availability. He is remained clinically stable in the emergency department. He is currently receiving octreotide, IV fluid hydration, and monitoring. Should he have a episode of decompensation I decision will be made at that point whether he needs emergent transfer or he can continue to wait for his bed assignment at [facility]. Lab Data I reviewed the patient's lab results. 08/23/24 13:40 08/23/24 13:40 Radiology Impressions Chest X-Ray 08/23/24 13:24 IMPRESSION: Mild atelectasis suspected at left lung base with trace left-sided pleural effusion. Laboratory Results WBC 18.92 10^3/uL (3.29-11.43) H 08/23/24 13:40 RBC 3.63 10^6/uL (3.85-5.65) L 08/23/24 13:40 Hgb 12.00 g/dL (11.27-16.99) 08/23/24 13:40 Hct 36.3 % (37-53) L 08/23/24 13:40 MCV 100.0 fl (82-101) 08/23/24 13:40 MCH 33.1 pg (27-33) H 08/23/24 13:40 MCHC 33.1 g/dL (30-55) 08/23/24 13:40 RDW 15.2 % (12.1-15.1) H 08/23/24 13:40 Plt Count 106 10^3/cmm (157-399) L 08/23/24 13:40 MPV 10.7 fL (7.4-10.4) H 08/23/24 13:40 Neut % (Auto) 89.5 % 08/23/24 13:40 Lymph % (Auto) 1.2 % 08/23/24 13:40 [place] % (Auto) 8.2 % 08/23/24 13:40 Eos % (Auto) 0.0 % 08/23/24 13:40 Baso % (Auto) 0.3 % 08/23/24 13:40 Neut # (Auto) 16.94 10^3/uL (1.8-7.7) H 08/23/24 13:40 Lymph # (Auto) 0.2 10^3/uL (0.8-4.8) L 08/23/24 13:40 [place] # (Auto) 1.6 10^3/uL (0.2-0.9) H 08/23/24 13:40 Eos # (Auto) 0.0 10^3/uL (0.0-0.8) 08/23/24 13:40 Baso # (Auto) 0.1 10^3/uL (0.0-0.1) 08/23/24 13:40 Nucleated RBC % (auto) 0 % 08/23/24 13:40 Nucleated RBCs # 0.0 /100WBC 08/23/24 13:40 Sodium 138 mmol/L (136-145) 08/23/24 13:40 Potassium 4.7 mmol/L (3.5-5.1) 08/23/24 13:40 Chloride 105 mmol/L (98-107) 08/23/24 13:40 Carbon Dioxide 20 mmol/L (22-29) L 08/23/24 13:40 Anion Gap 17.7 (5-19) 08/23/24 13:40 BUN 19 mg/dL (8-23) 08/23/24 13:40 Creatinine 1.4 mg/dL (0.7-1.2) H 08/23/24 13:40 GFR Calculation 50.4 mL/min (90-130) L 08/23/24 13:40 Glucose 192 mg/dL (65-115) H 08/23/24 13:40 Calculated Osmolality 293 mOsm/kg (285-295) 08/23/24 13:40 Calcium 8.3 mg/dL (8.5-10.5) L 08/23/24 13:40 Total Bilirubin 2.2 mg/dL (0.15-1.2) H 08/23/24 13:40 AST 34 U/L (0-40) 08/23/24 13:40 ALT 26 U/L (0-41) 08/23/24 13:40 Alkaline Phosphatase 131 U/L (40-130) H 08/23/24 13:40 Ammonia 102 umol/L (16-60) H 08/23/24 13:40 Total Protein 6.1 g/dL (6.6-8.7) L 08/23/24 13:40 Albumin 3.4 g/dL (3.5-5.2) L 08/23/24 13:40 Globulin 2.7 g/dL (1.3-4.6) 08/23/24 13:40 Urine Color Yellow (Yellow) 08/23/24 16:39 Urine Appearance Clear (CLEAR) 08/23/24 16:39 Urine pH 5.0 (5-7) 08/23/24 16:39 Ur Specific [place] 1.016 (1.005-1.030) 08/23/24 16:39 Urine Protein Negative (Negative) 08/23/24 16:39 Urine Glucose (UA) Negative (Normal) 08/23/24 16:39 Urine Ketones Negative (Negative) 08/23/24 16:39 Urine Blood Negative (Negative) 08/23/24 16:39 Urine Nitrate Negative (Negative) 08/23/24 16:39 Urine Bilirubin Negative (Negative) 08/23/24 16:39 Urine Urobilinogen 0.2 mg/dL (Negative) 08/23/24 16:39 Ur Leukocyte Esterase Negative (Negative) 08/23/24 16:39 Urine RBC 0-2 /hpf (0-2) 08/23/24 16:39 Urine WBC 0-5 /hpf (0-5) 08/23/24 16:39 Ur Squamous Epith Cells 0-5 /hpf (0-5) 08/23/24 16:39 Amorphous Sediment Not Reportable 08/23/24 16:39 Urine Bacteria None seen /hpf (NONE) 08/23/24 16:39 Hyaline Casts 0.40 /lpf 08/23/24 16:39 Coronavirus (PCR) Negative (Negative) 08/23/24 16:00 Influenza A (PCR) Negative (Negative) 08/23/24 16:00 Influenza Type B (PCR) Negative (Negative) 08/23/24 16:00 RSV (PCR) Negative (Negative) 08/23/24 16:00 Blood Type A Positive 08/23/24 13:40 Rho(D) Type Rh positive 08/23/24 13:40 Antibody Screen Negative 08/23/24 13:40 All radiology interpretation(s) finalized by discharge EKG Data EKG 1: I personally reviewed and interpreted this EKG as follows: Interpretation: Contemporaneous review of resting EKG reveals as ventricular rate of 70 bpm consistent with sinus rhythm. Normal AK interval, QRS duration, corrected QT interval. Normal axis. No acute ST-T wave changes noted. Discharge Plan Discharge Patient Disposition: Xfer Short-Term Hosp Clinical Impression: Gastrointestinal hemorrhage, Esophageal varices, Cirrhosis Condition: Stable Referrals: Floresita Bustillo DO [Primary Care Provider] - Patient Instructions: Altered Mental Status (ED) Print Language: [place] Coding Level of Care Code ED Branch Manager Trainee for Yehuda Little
--- NOTE | 2024-08-23 13:32 | ECG_ITS ---
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
[2024-08-23 13:49] LABS: Basophils # 0.1 10^3/uL (0.0-0.1); Basophils % 0.3 %; Hematocrit 36.3 % (37-53); Lymphocytes # 0.2 10^3/uL (0.8-4.8); Lymphocytes % 1.2 %; Mean Corpuscular HGB Conc 33.1 g/dL (30-55); Mean Corpuscular Hemoglobin 33.1 pg (27-33); Mean Platelet Volume 10.7 fL (7.4-10.4); Monocytes # 1.6 10^3/uL (0.2-0.9); Monocytes % 8.2 %; Neutrophils # 16.94 10^3/uL (1.8-7.7); Neutrophils % 89.5 %; Nucleated Red Blood Cells % 0 %; Platelet Count 106 10^3/cmm (157-399); Red Blood Count 3.63 10^6/uL (3.85-5.65); Red Cell Distribution Width 15.2 % (12.1-15.1); White Blood Count 18.92 10^3/uL (3.29-11.43)
[2024-08-23 14:07] LABS: Ammonia 102 umol/L (16-60)
[2024-08-23 14:09] LABS: Alanine Aminotransferase 26 U/L (0-41); Albumin Level 3.4 g/dL (3.5-5.2); Alkaline Phosphatase 131 U/L (40-130); Anion Gap 17.7 (5-19); Aspartate Amino Transferase 34 U/L (0-40); Blood Urea Nitrogen 19 mg/dL (8-23); Calcium 8.3 mg/dL (8.5-10.5); Carbon Dioxide 20 mmol/L (22-29); Chloride 105 mmol/L (98-107); Globulin 2.7 g/dL (1.3-4.6); Glomerular Filtration Rate 50.4 mL/min (90-130); Glucose 192 mg/dL (65-115); Osmolality Calculated 293 mOsm/kg (285-295); Potassium 4.7 mmol/L (3.5-5.1); Sodium 138 mmol/L (136-145); Total Bilirubin 2.2 mg/dL (0.15-1.2); Total Protein 6.1 g/dL (6.6-8.7)
[2024-08-23] MEDS: pantoprazole 40 mg SDV 80 MG IVP (14:37)
[2024-08-23] MEDS: lactated ringers 500 ML 999 ML IV (14:40)
[2024-08-23 17:01] LABS: Covid PCR NEGATIVE (Negative); Influenza A NEGATIVE (Negative); Influenza B NEGATIVE (Negative); Respiratory Syncytial Virus Ce NEGATIVE (Negative)
[2024-08-23 17:09] LABS: Bilirubin Urine Negative (Negative); Blood Urine Negative (Negative); Glucose Urine UA Negative (Normal); Ketones Urine Negative (Negative); Leukocyte Esterase Urine Negative (Negative); Nitrate Urine Negative (Negative); Protein Urine Negative (Negative); Specific Gravity, Urine 1.016 (1.005-1.030); Urine Appearance Clear (CLEAR); Urine Color Yellow (Yellow); Urobilinogen Urine 0.2 mg/dL (Negative)
[2024-08-23 17:14] LABS: Add Urine Microscopic? YES; Bacteria Urine None Seen /hpf; RBC Urine 0-2 /hpf (0-2); Squamous Epithelial Cell Urine 0-5 /hpf (0-5); WBC Urine 0-5 /hpf (0-5)
[2024-08-23] MEDS: cefTRIAXone 1,000 mg SDV 1000 MG IVP (18:58)
[2024-08-23 22:48] LABS: Basophils # 0.1 10^3/uL (0.0-0.1); Basophils % 0.4 %; Eosinophils % 0.2 %; Hematocrit 33.5 % (37-53); Lymphocytes # 0.5 10^3/uL (0.8-4.8); Lymphocytes % 2.8 %; Mean Corpuscular HGB Conc 33.4 g/dL (30-55); Mean Corpuscular Hemoglobin 33.5 pg (27-33); Mean Corpuscular Volume 100.3 fl (82-101); Mean Platelet Volume 10.8 fL (7.4-10.4); Monocytes # 1.2 10^3/uL (0.2-0.9); Monocytes % 6.2 %; Neutrophils # 16.79 10^3/uL (1.8-7.7); Neutrophils % 89.5 %; Nucleated Red Blood Cells % 0 %; Platelet Count 95 10^3/cmm (157-399); Red Blood Count 3.34 10^6/uL (3.85-5.65); Red Cell Distribution Width 15.6 % (12.1-15.1); White Blood Count 18.73 10^3/uL (3.29-11.43)
[2024-08-23] MEDS: lactated ringers 1,000 ML 150 ML IV (23:02)
[2024-08-23] MEDS: octreotide 500 MCG in sodium chloride 0.9% (100 ml) 100 ML 5.05 MCG IV (23:42)
[2024-08-24] VITALS (99 sets, daily range): BP systolic 97–135; BP diastolic 53–76; PULSE 55–79; RESP 12–30; TEMP 37; O2SAT 91–100
[2024-08-24] MEDS: lactated ringers 1,000 ML 150 ML IV ×3 (07:08→20:54)
[2024-08-24 08:04] LABS: Basophils # 0.1 10^3/uL (0.0-0.1); Basophils % 0.8 %; Eosinophils # 0.2 10^3/uL (0.0-0.8); Eosinophils % 1.5 %; Hematocrit 33.7 % (37-53); Lymphocytes # 0.5 10^3/uL (0.8-4.8); Lymphocytes % 4.6 %; Mean Corpuscular HGB Conc 32.3 g/dL (30-55); Mean Corpuscular Hemoglobin 33.1 pg (27-33); Mean Corpuscular Volume 102.4 fl (82-101); Mean Platelet Volume 10.6 fL (7.4-10.4); Monocytes % 9.2 %; Neutrophils # 9.39 10^3/uL (1.8-7.7); Neutrophils % 83.4 %; Nucleated Red Blood Cells % 0 %; Platelet Count 76 10^3/cmm (157-399); Red Blood Count 3.29 10^6/uL (3.85-5.65); Red Cell Distribution Width 15.8 % (12.1-15.1); White Blood Count 11.27 10^3/uL (3.29-11.43)
[2024-08-24 08:18] LABS: Alanine Aminotransferase 20 U/L (0-41); Albumin Level 2.9 g/dL (3.5-5.2); Alkaline Phosphatase 102 U/L (40-130); Anion Gap 15.5 (5-19); Aspartate Amino Transferase 33 U/L (0-40); Blood Urea Nitrogen 30 mg/dL (8-23); Calcium 7.9 mg/dL (8.5-10.5); Carbon Dioxide 20 mmol/L (22-29); Chloride 106 mmol/L (98-107); Creatinine Clr Calc Pharmacy 61.9099; Globulin 2.4 g/dL (1.3-4.6); Glomerular Filtration Rate 46.5 mL/min (90-130); Glucose 164 mg/dL (65-115); Osmolality Calculated 294 mOsm/kg (285-295); Potassium 4.5 mmol/L (3.5-5.1); Sodium 137 mmol/L (136-145); Total Bilirubin 2.8 mg/dL (0.15-1.2); Total Protein 5.3 g/dL (6.6-8.7)
[2024-08-24] MEDS: morphine 4 mg/mL SDV 1 mL 2 MG IVP ×2 (13:55→18:08)
[2024-08-24] MEDS: ondansetron 2 mg/ML SDV 2 mL 4 MG IVP ×2 (13:56→18:08)
--- NOTE | 2024-08-24 15:51 | PC.NURSE ---
PT SWITCHED FROM ED STRETCHER TO A HOSPITAL BED IN ROOM FOR COMFORT.
[2024-08-24] MEDS: octreotide 500 MCG in sodium chloride 0.9% (100 ml) 100 ML 5.05 MCG IV (19:09)
[2024-08-25] VITALS (29 sets, daily range): BP systolic 98–116; BP diastolic 53–63; PULSE 56–80; RESP 10–21; O2SAT 92–98
[2024-08-25] MEDS: lactated ringers 1,000 ML 150 ML IV ×2 (03:25→09:27)
[2024-08-25] MEDS: morphine 4 mg/mL SDV 1 mL 2 MG IVP (05:50)
[2024-08-25] MEDS: ondansetron 2 mg/ML SDV 2 mL 4 MG IVP (05:56)
[2024-08-25 06:59] LABS: Basophils # 0.1 10^3/uL (0.0-0.1); Basophils % 1.5 %; Eosinophils # 0.4 10^3/uL (0.0-0.8); Eosinophils % 6.6 %; Hematocrit 34.5 % (37-53); Lymphocytes # 0.6 10^3/uL (0.8-4.8); Lymphocytes % 11.5 %; Mean Corpuscular Hemoglobin 33.2 pg (27-33); Mean Corpuscular Volume 107.1 fl (82-101); Mean Platelet Volume 10.6 fL (7.4-10.4); Monocytes # 0.8 10^3/uL (0.2-0.9); Monocytes % 14.1 %; Neutrophils # 3.62 10^3/uL (1.8-7.7); Neutrophils % 66.1 %; Nucleated Red Blood Cells % 0 %; Platelet Count 81 10^3/cmm (157-399); Red Blood Count 3.22 10^6/uL (3.85-5.65); Red Cell Distribution Width 15.3 % (12.1-15.1); White Blood Count 5.47 10^3/uL (3.29-11.43)
[2024-08-25 07:13] LABS: INR 1.34 (0.8-1.2)
[2024-08-25 07:17] LABS: Alanine Aminotransferase 21 U/L (0-41); Albumin Level 2.6 g/dL (3.5-5.2); Alkaline Phosphatase 93 U/L (40-130); Anion Gap 13.4 (5-19); Aspartate Amino Transferase 49 U/L (0-40); Blood Urea Nitrogen 31 mg/dL (8-23); Calcium 7.8 mg/dL (8.5-10.5); Carbon Dioxide 21 mmol/L (22-29); Chloride 108 mmol/L (98-107); Globulin 2.4 g/dL (1.3-4.6); Glomerular Filtration Rate 50.4 mL/min (90-130); Glucose 104 mg/dL (65-115); Osmolality Calculated 293 mOsm/kg (285-295); Potassium 4.4 mmol/L (3.5-5.1); Sodium 138 mmol/L (136-145)
[2024-08-25 07:24] LABS: Ammonia 73 umol/L (16-60)
--- NOTE | 2024-08-25 07:30 | XR_ITS ---
WS: [id number] XR chest 1V portable [id number] REASON FOR EXAM: dyspnea/cough FINDINGS: Cardiomegaly. Central venous pulmonary congestion. Compared to the previous examination of 08/23/2024 there are fine reticular opacities in the mid and lower lung lucero with small amount of fluid in the minor fissure on the right. The chest is otherwise unchanged. XR/XR chest 1V portable [id number] IMPRESSION: Interval change in the examination most consistent with early pulmonary edema/c ongestive heart failure.
[2024-08-25] MEDS: pantoprazole 40 mg SDV IVP (08:33)
--- NOTE | 2024-08-25 08:40 | USCV_ITS ---
BoyLuis moctezuma Age: 69 Gender: M : 1955 Exam Date: 08/25/2024 09:16 Ordering Phys: Raghavendra Chanel DO Technologist: CT Exam Location: [facility] – [place] Indication: rt calf pain PROCEDURES: Venous duplex imaging was performed in bilateral lower extremities. Bilaterally, the common femoral, superficial femoral, profunda femoral, popliteal, posterior tibial, greater saphenous veins, and the peroneal trunk were identified and interrogated in the standard fashion. These veins were found to be easily compressible with spontaneous blood flow. No evidence of insufficiency or thrombus noted. FINDINGS: normal us CONCLUSIONS No evidence of right lower extremity DVT. No evidence of left lower extremity DVT. Kenroy Nicolas MD (Electronically Signed) Final Date: 25 August 2024 10:51 S
--- NOTE | 2024-08-25 08:44 | PC.NURSE ---
THIS NURSE IN PT ROOM TO ASSESS PT PAIN. PT COMPLAINING OF BILAT CALF TENDERNESS. THIS NURSE ASSESSED BILAT LEGS. WARMTH, SWELLING AND MILD REDNESS NOTED IN RIGHT LOWER EXTREMITY. DR. VELA NOTIFIED OF FINDINGS. VERBAL ORDER GIVEN FOR BILAT VENOUS DUPLEX. THIS NURSE PLACED ORDER. US NOTIFIED.
[2024-08-25] MEDS: acetaminophen 325 mg Tablet 650 MG PO (10:14)
--- NOTE | 2024-08-25 11:18 | PM.CONSULT ---
Providers/Reason For Consult Consulting Physician/Specialty*: Hospitalist Reason for Consult*: GI bleed, liver cirrhosis Primary Care Provider: Floresita Bustillo DO History of Present Illness History of Present Illness Pleasant 69-year-old gentleman with history of liver cirrhosis, gastric varices, TIPS, DM 1.5, GERMAN, hyponatremia, UGIB, CKD, hepatic encephalopathy, OSITO, hypothyroid, HTN, GERD, who was assessed in ER on 08/23 after presenting with altered mental status, with dark stools, initially dark, subsequently bright red. 1 episode of emesis. With history of esophageal varices which required multiple interventions in the past, with active GI bleeding, complicated also by hepatic encephalopathy, arrangements were made for transfer to [facility] for further assessment management. Review of Systems Const: Denies: fever(s), chills or malaise ENMT: Denies: throat pain Card: Denies: chest pain, edema, pre-syncope or dyspnea on exertion Resp: Denies: dyspnea, productive cough, change in phlegm color or hemoptysis GI: Denies: abdominal pain, nausea, vomiting, diarrhea, constipation, hematochezia or melena : Denies: flank pain, difficulty urinating, urinary frequency or hematuria Musc: Denies: back pain, joint swelling or joint redness Skin/Breast: Denies: rash or new lesions Medications/Allergies Home Medications ?Medication ?Instructions ?Recorded ?Confirmed ?Last Taken ?Type rifaximin 550 mg tablet (Xifaxan) 550 mg PO BID #90 tabs 08/15/21 08/23/24 06/15/23 Rx furosemide 80 mg tablet 80 mg PO BID 08/23/24 08/23/24 08/23/24 History insulin aspart U-100 100 unit/mL 5 - 20 unit SUBCUT QID 08/23/24 08/23/24 08/23/24 History (3 mL) subcutaneous pen (Novolog FlexPen U-100 Insulin aspart) insulin glargine 100 unit/mL (3 25 unit SUBCUT QPM 08/23/24 08/23/24 08/22/24 History mL) subcutaneous pen (Basaglar KwikPen U-100 Insulin) levothyroxine 25 mcg tablet 25 mcg PO QAM 08/23/24 08/23/24 08/23/24 History lorazepam 0.5 mg tablet 0.5 mg PO DAILY 08/23/24 08/23/24 08/23/24 History midodrine 5 mg tablet 5 mg PO TID 08/23/24 08/23/24 08/23/24 History ondansetron 8 mg disintegrating 8 mg PO PRN PRN nauesa 08/23/24 08/23/24 Unknown History tablet pantoprazole 40 mg tablet,delayed 40 mg PO BID 08/23/24 08/23/24 08/23/24 History release spironolactone 50 mg tablet 100 - 150 mg PO DAILY PRN swelling 08/23/24 08/23/24 08/23/24 History sucralfate 1 gram tablet 1 g PO QID 08/23/24 08/23/24 08/23/24 History Allergies Allergy/AdvReac Type Severity Reaction Status Date / Time Sulfa (Sulfonamide Allergy ALGY-Rash Verified 06/30/24 11:15 Antibiotics) Current Medications Generic Name Dose Route Start Last Admin Trade Name Freq PRN Reason Stop Dose Admin Acetaminophen 650 mg 08/25/24 09:00 08/25/24 10:14 Acetaminophen 325 Mg Tablet PO 650 mg ONCE JEMIMA Administration Lactated Ringer's 1,000 mls @ 150 mls/hr 08/23/24 22:00 08/25/24 09:27 Lactated Ringers IV 150 mls/hr .Q6H40M JEMIMA Administration Octreotide Acetate 500 mcg/ 101 mls @ 5.05 mls/hr 08/23/24 22:45 08/24/24 19:09 Sodium Chloride IV 25 mcg/hr .Q20H JEMIMA 5.05 mls/hr Administration 25 MCG/HR Pantoprazole Sodium 40 mg 08/25/24 08:00 08/25/24 08:33 Pantoprazole 40 Mg Sdv IVP 40 mg Q12H JEMIMA Administration PFSH Acute PFSH: Medical History Diabetes 1.5, 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) Thrombocytopenia, unspecified Hyponatremia Chronic hyponatremia 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 Upper GI bleed CKD (chronic kidney disease) stage 2, GFR 60-89 ml/min -baseline Cr wnl -current renal function at baseline Hepatic encephalopathy -noted ammonia-69; mentation at baseline -on lactulose Obstructive sleep apnea -CPAP qhs Hypothyroidism -TSH wnl -continue levothyroxine Hypertension -VSS -discontinue ARB, continue Aldactone; due to low normal BP and risk of hypotension GERD (gastroesophageal reflux disease) Acute hyponatremia -improved with hydration, on salt tablets -suspect some degree of this will persist chronically Surgical History 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 @ [place], [place] History of umbilical hernia repair (04/18/21) H/O esophagogastroduodenoscopy (03/08/20) History of vasectomy History of surgery on upper extremity History of arthroscopic knee surgery History of appendectomy Family History Other Bleeding disorder CAD (coronary artery disease) Diabetes Hypertension Lung disease Psychiatric illness Denies family history of Clotting disorder Dementia Hyperlipidemia Chronic kidney disease (CKD) Suicide Anesthesia complication Cancer Stroke Social History Smoking and tobacco/nicotine status: former use of tobacco/nicotine Quit status (tobacco/nicotine): has quit using Year quit tobacco: 1981 Former quit date comment: smoked 40+ years Alcohol intake: former Substance/Drug Use: never Vitals/I&O/Wt Last Vital Signs Temp 98.6 F 08/24/24 02:25 Pulse 65 08/25/24 08:24 Resp 12 08/25/24 08:24 BP 105/58 08/25/24 08:24 Pulse Ox 98 08/25/24 08:24 O2 Del Method Room Air 08/25/24 08:24 08/24/24 08/25/24 08/25/24 22:59 06:59 14:59 Intake Total 1101 / 2101 975 / 3076 905 / 905 Balance 1101 / 2101 975 / 3076 905 / 905 Weight last 48 hrs Weight 108.862 kg Physical Exam Narrative: Accompanied by his friend. Const: COMMON NORMALS: patient oriented x3 and alert GENERAL APPEARANCE: cooperative ORIENTATION/CONSCIOUSNESS: Yes awake HENMT: COMMON NORMALS: oropharynx normal Neck/C-Spine: COMMON NORMALS: no JVD Resp: COMMON NORMALS: normal respiratory effort and clear to auscultation bilaterally AUSCULTATION: clear to auscultation bilaterally Cardio: COMMON NORMALS: no JVD, regular rhythm, S1 normal heart sound present, S2 normal heart sound present and No murmurs present (Cardio) RHYTHM: regular rhythm HEART SOUNDS: S1 normal heart sound present and S2 normal heart sound present GI: COMMON NORMALS: Normal to inspection, nondistended, normoactive bowel sounds present, Soft to palpation and non-tender PALPATION: Yes Soft to palpation Extremity: COMMON NORMALS: no joint enlargement and no pedal edema Neuro: COMMON NORMALS: patient oriented x3 and moves all extremities SENSORIUM/ORIENTATION: Yes alert Skin: COMMON NORMALS: no rashes or lesions noted GENERAL SKIN EXAM: no rashes or lesions noted Data 08/25/24 06:53 08/25/24 06:53 A&P Assessment and plan (1) Gastrointestinal hemorrhage: Presented with acute GI bleeding with multiple dark bowel movements, subsequently bright red. 1 episode of emesis. With decompensated liver cirrhosis with platelets down to 81,000, INR 1.34. With history of esophageal varices requiring multiple interventions. Pending transfer for additional assessment and definitive management of esophageal varices currently [facility] With significant rise in admissions related to viral infections, and has been difficult to obtain transfer. Will see if can check additional facilities. Reviewed vitals, CBC, INR, CMP, ammonia level. Reviewed ER provider note, discussed with ER provider. Continue octreotide, PPI. Resume sucralfate. Reassess blood counts. Monitor for signs of additional active bleeding. Decrease IV fluid rate down to 75 mL/h. Monitor for risk of fluid overload. Qualifiers: GI bleed type/associated pathology: unspecified gastrointestinal hemorrhage type Qualified Code(s): K92.2 - Gastrointestinal hemorrhage, unspecified (2) Decompensation of cirrhosis of liver: Decompensation of liver cirrhosis with acute GI bleeding, hepatic encephalopathy on presentation, ammonia elevation, INR elevation, thrombocytopenia, platelets down to 81. This is slightly better than 76 yesterday. Hepatic encephalopathy so far with improvement, he is awake and alert. Resume rifaximin. Plan S/p TIPS, DM 1.5, he has been NPO. Initially hyperglycemic, will add sliding scale insulin only for now as glucose currently down to 100. GERMAN, with recent GI bleeding, anemia, hemoglobin 10.7, platelets down to 81. Reassess blood counts. hyponatremia, reviewed sodium, currently normal. Reassess chemistry. CKD, reassess chemistry, renal function at recent baseline. hepatic encephalopathy, OSITO, hypothyroid, resume levothyroxine HTN,: Monitor blood pressures, currently soft. Hold antihypertensives for now. GERD: PPI PDMP PDMP Reviewed: Not Reviewed Diagnoses Gastrointestinal hemorrhage K92.2 GI bleed type/associated pathology: unspecified gastrointestinal hemorrhage type Decompensation of cirrhosis of liver K72.90; K74.60
[2024-08-25 12:00] LABS: Glucose Point of Care 96 mg/dL (70-110)
[2024-08-25] MEDS: lidocaine 5% Patch 1 PATCH TOPICAL (12:45)
[2024-08-25] MEDS: sucralfate 1 gm Tablet PO (13:22)
[2024-08-25] MEDS: midodrine 5 mg TABLET PO (15:17)
[2024-08-25] MEDS: octreotide 500 MCG in sodium chloride 0.9% (100 ml) 100 ML 5.05 MCG IV (15:17)
[2024-08-25] MEDS: lactated ringers 1,000 ML 75 ML IV (17:21)
== END 2024-08-25 17:30 | disposition short-term general hospital (02) ==
PROVIDERS: Family Medicine; Emergency Provider Emergency Medicine; PCP Family Medicine
DX: K92.2 Gastrointestinal hemorrhage, unspecified (principal); I85.00 Esophageal varices without bleeding; K74.60 Unspecified cirrhosis of liver; Z11.52 Encounter for screening for COVID-19; Z87.891 Personal history of nicotine dependence; N18.9 Chronic kidney disease, unspecified
CPT/HCPCS: 36415; 36416; 71045; 80053; 81001; 82140; 82962; 85025; 85610; 86850; 86900; 87637; 93005; 93970; 99285; J0696; J2270; J2354; J2405; J2470; J7120

== ENCOUNTER 2024-09-15 09:36 | Oncology outpatient (recurring) (ONCR) | payer MEDICARE, OTHER, SELFPAY ==
[2024-09-15 10:08] LABS: Basophils # 0.1 10^3/uL (0.0-0.1); Basophils % 1.6 %; Eosinophils # 0.2 10^3/uL (0.0-0.8); Eosinophils % 6.5 %; Hematocrit 37.6 % (37-53); Lymphocytes # 0.6 10^3/uL (0.8-4.8); Lymphocytes % 19.7 %; Mean Corpuscular HGB Conc 32.7 g/dL (30-55); Mean Corpuscular Hemoglobin 31.6 pg (27-33); Mean Corpuscular Volume 96.7 fl (82-101); Monocytes # 0.5 10^3/uL (0.2-0.9); Monocytes % 17.5 %; Neutrophils # 1.68 10^3/uL (1.8-7.7); Neutrophils % 54.4 %; Nucleated Red Blood Cells % 0 %; Platelet Count 86 10^3/cmm (157-399); Red Blood Count 3.89 10^6/uL (3.85-5.65); Red Cell Distribution Width 14.5 % (12.1-15.1); White Blood Count 3.09 10^3/uL (3.29-11.43)
[2024-09-15 10:27] LABS: Alanine Aminotransferase 28 U/L (0-41); Albumin Level 3.4 g/dL (3.5-5.2); Alkaline Phosphatase 151 U/L (40-130); Anion Gap 13.6 (5-19); Aspartate Amino Transferase 49 U/L (0-40); Blood Urea Nitrogen 25 mg/dL (8-23); Calcium 8.6 mg/dL (8.5-10.5); Carbon Dioxide 21 mmol/L (22-29); Chloride 107 mmol/L (98-107); Ferritin 126 ng/mL (30-400); Globulin 2.4 g/dL (1.3-4.6); Glomerular Filtration Rate 74.3 mL/min (90-130); Glucose 176 mg/dL (65-115); Iron 205 ug/dL (59-158); Osmolality Calculated 293 mOsm/kg (285-295); Percent Saturation 80.7 % (20-50); Potassium 4.6 mmol/L (3.5-5.1); Sodium 137 mmol/L (136-145); Total Bilirubin 1.3 mg/dL (0.15-1.2); Total Iron Binding Capacity 254 mcg/dl; Total Protein 5.8 g/dL (6.6-8.7); Unsaturated Iron Binding 49 ug/dL (112-347)
== END 2024-10-12 23:59 | disposition home or self-care (01) ==
PROVIDERS: Internal Medicine Medical Oncology; PCP Family Medicine; Visit Provider Nurse Practitioner
DX: D64.9 Anemia, unspecified (principal); K75.81 Nonalcoholic steatohepatitis (NASH); K74.60 Unspecified cirrhosis of liver
CPT/HCPCS: 36415; 80053; 82728; 83540; 83550; 85025; 99214

== ENCOUNTER 2024-11-17 12:50 | Oncology outpatient (recurring) (ONCR) | payer MEDICARE, OTHER, SELFPAY ==
[2024-11-17 13:14] LABS: Basophils # 0.1 10^3/uL (0.0-0.1); Basophils % 1.6 %; Eosinophils # 0.2 10^3/uL (0.0-0.8); Hematocrit 29.7 % (37-53); Lymphocytes # 0.7 10^3/uL (0.8-4.8); Lymphocytes % 17.2 %; Mean Corpuscular HGB Conc 30.6 g/dL (30-55); Mean Corpuscular Hemoglobin 28.6 pg (27-33); Mean Corpuscular Volume 93.4 fl (82-101); Mean Platelet Volume 10.5 fL (7.4-10.4); Monocytes # 0.7 10^3/uL (0.2-0.9); Monocytes % 19.3 %; Neutrophils # 2.14 10^3/uL (1.8-7.7); Neutrophils % 56.6 %; Nucleated Red Blood Cells % 0 %; Platelet Count 123 10^3/cmm (157-399); Red Blood Count 3.18 10^6/uL (3.85-5.65); Red Cell Distribution Width 14.6 % (12.1-15.1); White Blood Count 3.78 10^3/uL (3.29-11.43)
[2024-11-17 13:34] LABS: Alanine Aminotransferase 28 U/L (0-41); Albumin Level 3.4 g/dL (3.5-5.2); Alkaline Phosphatase 119 U/L (40-130); Anion Gap 17.1 (5-19); Aspartate Amino Transferase 36 U/L (0-40); Blood Urea Nitrogen 21 mg/dL (8-23); Calcium 8.9 mg/dL (8.5-10.5); Carbon Dioxide 16 mmol/L (22-29); Chloride 110 mmol/L (98-107); Ferritin 40 ng/mL (30-400); Globulin 2.4 g/dL (1.3-4.6); Glomerular Filtration Rate 66.6 mL/min (90-130); Glucose 108 mg/dL (65-115); Iron 29 ug/dL (59-158); Osmolality Calculated 292 mOsm/kg (285-295); Percent Saturation 9.1 % (20-50); Potassium 4.1 mmol/L (3.5-5.1); Sodium 139 mmol/L (136-145); Total Bilirubin 1.5 mg/dL (0.15-1.2); Total Iron Binding Capacity 316 mcg/dl; Total Protein 5.8 g/dL (6.6-8.7); Unsaturated Iron Binding 287 ug/dL (112-347)
== END 2024-12-12 23:59 | disposition home or self-care (01) ==
PROVIDERS: Internal Medicine Medical Oncology; PCP Family Medicine; Visit Provider Nurse Practitioner
DX: D69.6 Thrombocytopenia, unspecified (principal); K74.60 Unspecified cirrhosis of liver; K75.81 Nonalcoholic steatohepatitis (NASH)
CPT/HCPCS: 36415; 80053; 82728; 83540; 83550; 85025

== ENCOUNTER 2025-03-01 06:28 | Inpatient (IN) | payer MEDICARE, OTHER, SELFPAY ==
[2025-03-01] VITALS (167 sets, daily range): BP systolic 118–180; BP diastolic 64–116; PULSE 56–115; RESP 12–28; TEMP 36.7–37.5; O2SAT 91–100; BMI 33.0; BMI 31.5
--- NOTE | 2025-03-01 06:29 | ECG_ITS ---
[employer] Test Date: 2025-03-01 Pat Name: Luis Muñoz Department: Room: Gender: Male Resident Care Director: : 1955 Requested By: Raghavendra Nesbitt Order Number: [id number] Jae MD: Skyler Navarrete M.D. Measurements Intervals [place] Rate: 67 P: 44 NH: 113 QRS: 69 QRSD: 81 T: 69 QT: 402 QTc: 425 Interpretive Statements SINUS RHYTHM WITH SHORT NH INTERVAL WITH OCCASIONAL SUPRAVENTRICULAR PREMATURE COMPLEXES Compared to ECG 08/23/2024 14:25:54 Short NH interval now present Electronically Signed On 03-06-2025 09:19:23 CDT by Skyler Navarrete M.D. [id number]
--- NOTE | 2025-03-01 06:31 | XRR_ITS ---
PROCEDURE INFORMATION: Exam: XR Chest Exam date and time: 03/01/2025 6:44 AM Age: 70 years old Clinical indication: Other: AMS; Additional info: Altered mental status TECHNIQUE: Imaging protocol: Radiologic exam of the chest. Views: 1 view. COMPARISON: CR XR chest 1V portable [id number] 08/25/2024 7:32 AM FINDINGS: Lungs: Hypoventilatory changes at the lung bases. Pleural spaces: Unremarkable. No pleural effusion. No pneumothorax. Heart/Mediastinum: Borderline cardiomegaly. Bones/joints: Unremarkable. XR/XR chest 1V portable [id number] IMPRESSION: No acute findings.
--- NOTE | 2025-03-01 06:32 | ECG_ITS ---
[facility] Date: 2025-03-01 Pat Name: Luis Muñoz Department: Room: Gender: Male Government Guard: : 1955 Requested By: Raghavendra Nesbitt Order Number: [id number] Jae MD: Skyler Navarrete M.D. Measurements Intervals [place] Rate: 71 P: 9 OK: 133 QRS: 28 QRSD: 81 T: 26 QT: 405 QTc: 440 Interpretive Statements SINUS RHYTHM WITH OCCASIONAL SUPRAVENTRICULAR PREMATURE COMPLEXES Compared to ECG 03/01/2025 06:41:39 Short [place] interval no longer present Electronically Signed On 03-06-2025 09:18:33 CDT by Skyler Navarrete M.D. [email or web address]
--- OUTSIDE RECORDS SUMMARY | 2025-03-01 06:33 | XMS_ITS | Encounter Summary ---
Author Organization [facility] Address [address] [place] [address] Care Team Providers Care Supplemental Nurse Name Role Phone Floresita Bustillo DO Primary Care Provider Encounter Details Date Type Department Care Team (Latest Contact Info) Description 05/22/2007 Outpatient [facility] Medicine [address] [phone] Misael Randall, NET WEB APPLICATION DEVELOPER [address] [place] [address] Unspecified Cellulitis and Abscess of Toe (Primary Dx); Gout, Unspecified Social History Tobacco Use Types Packs/Day Years Used Date Smoking Tobacco: Never Assessed Sex and Gender Information Value Date Recorded Sex Assigned at Not on file Legal Sex Male 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
--- OUTSIDE RECORDS SUMMARY | 2025-03-01 06:33 | XMS_ITS | Encounter Summary ---
Author Organization [facility] Address [address] [place] [address] Care Team Providers Care Hospital Admissions Officer Name Role Phone Floresita Bustillo DO Primary Care Provider Encounter Details Date Type Department Care Team (Latest Contact Info) Description 11/25/2006 Outpatient Historical [facility] Medicine [address] [phone] Misael Randall, LABOR ECONOMIST [address] [place] [address] Insect Bite NEC-Infected (Primary Dx); Dysuria Social History Tobacco Use Types Packs/Day Years Used Date Smoking Tobacco: Never Assessed Sex and Gender Information Value Date Recorded Sex Assigned at Not on file 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
--- OUTSIDE RECORDS SUMMARY | 2025-03-01 06:33 | XMS_ITS | Clinical Summary ---
Author Organization [facility] Address [address] [place] [address] Care Team Providers Care Corporate Securities Research Analyst Name Role Phone Keny Floresita Laz FERRELL Primary Care Provider Allergies Active Allergy Reactions Criticality Noted Date Comments Sulfa (Sulfonamide Antibiotics) Rash Medium 07/15 Medications CENTRUM SILVER PO Take by mouth daily. Active CPAP / BIPAP suppliesIndication s:OSITO on CPAP Length of need: 99 months Mask Type: full face with headgear every 6 months, mask only every 3 months,2 cushions per month. Tubing: heated 1 every 3 months, water chamber 1 every 6 months, chin strap 1 every 6 months, filters disposable 2 per month, filters reusable 1 per 6 months.. 1 Each 7 Active omeprazole (PriLOSEC) 20 mg Capsule, Delayed Release(E.C.)Indic ations:Gastroesoph ageal reflux disease, esophagitis presence not specified Take 20 mg by mouth daily. Active ferrous sulfate 324 mg (65 mg iron) Tablet, Delayed Release (E.C.)Indications: Hepatic cirrhosis, unspecified hepatic cirrhosis type, unspecified whether ascites present (CMS/HCC) Take 65 mg by mouth 2 times daily. Active levothyroxine 25 mcg tabletIndications: Hypothyroidism due to acquired atrophy of thyroid Take 1 Tablet (25 mcg) by mouth daily early childhood coordinator. 90 Tablet 4 0 Active sucralfate (CARAFATE) 1 gram tabletIndications: H/O: GI bleed Take 1 Tablet (1 Gram) by mouth 3 times daily before meals. 270 Tablet 4 0 Active spironolactone (ALDACTONE) 50 mg tablet TAKE 1 TABLET BY MOUTH DAILY 90 Tablet 3 1 Active betamethasone dipropionate (DIPROSONE) 0.05 % OintmentIndication s:Nummular eczema Apply to affected area 2 times daily. 45 Gram 2 1 Active lactulose (ENULOSE) 10 gram/15 mL 10 gram/15 mL solutionIndication s:Hyperammonemia Take 20 Grams by mouth. 1 Active temazepam (RestoriL) 7.5 mg capsuleIndications :Primary insomnia Take 1-2 Capsules (7.5-15 mg) by mouth nightly as needed for Insomnia. 30 Capsule 1 1 Active fluticasone propionate (FLONASE) 50 mcg/spray [place], Suspension nasal inhalerIndications :Acute non-recurrent pansinusitis SHAKE LIQUID AND USE 2 SPRAYS IN EACH NOSTRIL DAILY 16 Gram 11 1 Active lidocaine (Lidoderm) 5 % Adhesive Patch, Medicated Apply 1 Patch to affected area every 24 hours. 90 Patch 4 1 Active traMADoL (ULTRAM) 50 mg tabletIndications: Primary osteoarthritis of both shoulders Take 1 Tablet (50 mg) by mouth every 6 hours as needed for Pain. 60 Tablet 1 1 Active gabapentin (NEURONTIN) 100 mg capsule Take 1 Capsule (100 mg) by mouth 3 times daily as needed for Pain. 30 Capsule 1 1 Active furosemide (LASIX) 80 mg tablet Take 1 Tablet (80 mg) by mouth 2 times daily. 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 04/18/20 Fibroscan CAP 204, LSM 75 kPa Nummular eczema 10/04/2017 OSITO on CPAP 06/09/2017 Type 2 diabetes mellitus wit hout complication, without long-term current use of insulin 07/11/2016 Hypothyroidism due to acquired atrophy of thyroi d 11/22/2014 Elevated LDL cholesterol level 09/13/2014 Trochanteric bursitis 01/26/2013 Plantar fasciitis 05/20/2011 Essential hypertension 08/02/2008 Gastroesophageal reflux dise ase with esophagitis and hemorrhage ED (erectile dysfunction) Resolved Problems Problem Noted Date Diagnosed Date Resolved Date Hypothyroidism due to non-me dication exogenous substances 11/22/2014 04/04/2016 Immunizations Immunization Administration Dates Next Due (HAVRIX/VAQTA)(19 YRS UP) HE PATITIS A VACCINE ADULT DOSAGE 1 ML IMM 05/29/2019 INFLUENZA VACCINE QUADRIVALE NT 3 YR UP PF IM 05/29/2017,04/04/2016,05/27/2015 INFLUENZA VACCINE QUADRIVALENT 6 MOS UP IM 05/29 INFLUENZA VACCINE QUADRIVALE NT 6 MOS UP PF IM 04/14/2020 Influenza Vaccine Quad Split 3+ Yrs Im 8 Influenza Vaccine Split 3+ Yrs IM 05/18/2011 Influenza Vaccine Split 3+ Yrs PF IM 07/31/2012 Family History Medical History Relation Name Comments Heart Disease Father Diabetes Mother Liver Disease Mother Relation Name Status Comments Brother Alive Father (Age 83) Mother (Age 63) Sister Alive Social History Tobacco Use Types Packs/Day Years Used Date Smoking Tobacco: Former Cigarettes 0.5 20 0 12/13/1977 - 12/13/1997 Smokeless Tobacco: Former Chew Comments:quit approximately 30 years ago Alcohol Use Standard Drinks/Week Comments Yes 5.8 (1 standard drink = 0.6 oz p ure alcohol) Sex and Gender Information Value Date Recorded Sex Assigned at Not on file Legal Sex Male 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 Gender Identity Not on file Sexual Orientation Not on file 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 Not on file Not on file Not on file Last Filed Vital Signs Vital Sign Reading Time Taken Comments Blood Pressure 118/66 01/02/2021 1:16 PM CDT Pulse 112 01/02/2021 1:16 PM CDT Temperature 36.4 C (97.5 F) 01/02/2021 1:16 PM CDT Respiratory Rate 18 01/02/2021 1:16 PM CDT Oxygen Saturation 95% 01/02/2021 1:16 PM CDT Inhaled Oxygen Concentration - - Weight 91.6 kg (202 lb) 01/02/2021 1:16 PM CDT Height 188 cm (6' 2 ) 01/02/2021 1:16 PM CDT Body Mass Index 25.94 01/02/2021 1:16 PM CDT Plan of Treatment Health Maintenance Due Date Last Done Comments DTAP/TDAP/TD VACCINES (1 - Tdap) 01/26/1975 PNEUMOCOCCAL VACCINE 50+ YEA RS (1 of 2 - PCV) 01/26/1975 FIT-DNA Q 3 years 01/26/2001 Flex Sig/CT Colonography Q 5 years 01/26/2001 ZOSTER VACCINE (1 of 2) 01/26/2006 RSV VACCINE (60+ or ) (1 - Risk 60-74 years 1-dose series) 2016 DIABETES MICROALBUMIN ANNUAL SCREEN 01/10/2020 01/09/2019 LDL CHOLESTEROL ANNUAL 02/07/2021 0, 07/20/2019, 06/13/2018, Additional history exists DIABETES ANNUAL FOOT EXAM 11/14/2021 11/14/2020 FIT/FOBT Q 1 year 12/21/2021 12/21/2020, 06/17/2018 DIABETES HBA1C Q 6 MONTHS 03/26/20222021, 11/14/2020, 02/08/2020, Additional history exists Preventative Visit- Commercial 07/15/2024 06/13/2018 , 04/04/2016 INFLUENZA VACCINE (#1) 2025 0, 05/29/2019, 04/28/2018, Additional history exists DIABETES ANNUAL RETINAL EXAM 04/30/2025, 09/13/2021, 06/06/2020, Additional history exists COLORECTAL SCREENING 01/10/2033 01/10/2023, 02/22/2022, 08/28/2021, Additional history exists Colorectal Cancer Screening 01/10/2033 Procedures Procedure Name Priority Date/Time Associated Diagnosis Comments POC OCCULT BLOOD UP TO 3 CARDS Routine 12/21/2020 8:43 AM CDT Chronic GI bleeding HEMOGLOBIN A1C Routine 11/14/2020 2:07 PM CDT Type 2 diabetes mellitus without complication, without long-term current use of insulin ([facility]/HCC) HM DIABETES EYE EXAM Routine 06/06/2020 LIPID PANEL Routine 02/08/2020 3:33 PM CDT Type 2 diabetes mellitus with complication, without long-term current use of insulin ([facility]/HCC) MICROALBUMIN/CREATIN INE RATIO, RANDOM UR Routine 01/09/2019 2:44 PM CDT Type 2 diabetes mellitus with complication, without long-term current use of insulin ([facility]) ENDOSCOPY, COLON, DIAGNOSTIC Routine 07/21/2018 Occult blood positive stool Microcytic anemia Low serum ferritin level Low serum iron from Last 3 Months or Most Recently Relevant to Health Maintenance Results * (ABNORMAL) POC OCCULT BLOOD UP TO 3 CARDS (12/21/2020 8:43 AM CDT) OCCULT BLOOD 1 CARD POC Positive(A) Negative [facility] OCCULT BLOOD 2 CARD POC Negative Negative [facility] OCCULT BLOOD 3 CARD POC Invalid Result(A) Negative [facility] INTERNAL KIT QC Pass Pass [facility] CARD LOT NUMBER POC 50,581 [facility] CARD EXPIRATION DATE POC 70,121 [facility] DEVELOPER LOT NUMBER POC [id number] [facility] DEVELOPER EXPIRATION DATE POC 110,121 [facility] Stool STOOL SPECIMEN / Unknown 12/21/2020 8:43 AM CDT Floresita Bustillo DO POINT OF CARE TESTING Final Result [facility] CLIA# [id number] [address] [place] [address] * HEMOGLOBIN A1C (11/14/2020 2:07 PM CDT) HEMOGLOBIN A1C 5.0 See Comment % 11/14/2020 8:51 PM CDT [facility] EST. AVG GLUCOSE, A1C 97 mg/dL 11/14/2020 8:51 PM CDT [facility] Blood Venipuncture / Unknown 11/14/2020 2:07 PM CDT 11/14/2020 8:18 PM CDT Narrative [facility] - 11/14/2020 8:51 PM CDT HGB A1C INTERPRETATION NORMAL: <5.7% PRE-DIABETES: 5.7 - 6.4% DIABETES: 6.5% OR GREATER Falsely low A1C measurements can occur when: 1. Anemia and/or hemolytic anemia is present. 2. Hemoglobin variants present. 3. Renal failure. 4. Transfusion of blood product in the last 120 days. We recommend ordering a fructosamine test([id number]) to more accurately assess glycemic status if any of the above conditions are present. Floresita Bustillo DO CHEMISTRY ORDERABLES Final Result [facility] CLIA# [id number] [address] [place] [address] * DIABETES EYE EXAM (06/06/2020) us Abstract Spg Provider HEALTH MAINTENANCE Final R esult * (ABNORMAL) LIPID PANEL (02/08/2020 3:33 PM CDT) CHOLESTEROL 184 <200 mg/dL 02/08/2020 9:42 PM CDT [facility] TRIGLYCERIDE 128 <150 mg/dL 02/08/2020 9:42 PM CDT [facility] HDL 64(H) 40 - 59 mg/dL 02/08/2020 9:42 PM CDT [facility] LDL CALCULATED 94 <100 mg/dL 02/08/2020 9:42 PM CDT [facility] NON-HDL CHOLESTEROL 120 <130 mg/dL 02/08/2020 9:42 PM CDT [facility] Blood Venipuncture / Unknown 02/08/2020 3:33 PM CDT 02/08/2020 8:33 PM CDT Narrative [facility] - 02/08/2020 9:42 PM CDT TOTAL CHOLESTEROL mg/dL Desirable <200 Borderline high 200-239 High >=240 TRIGLYCERIDES mg/dL Normal <150 Borderline high 150-199 High 200-499 Very high >=500 HDL CHOLESTEROL mg/dL Low <40 Normal 40-59 Desirable >=60 NON HDL CHOLESTEROL mg/dL Optimal <130 Near Optimal 130-159 Borderline High 160-189 Very High >=190 CALCULATED LDL mg/dL LDL <70, OPTIMAL if have Atherosclerotic cardiovascular disease (ASCVD) or intermediate or higher (>7.5%) 10 year risk of ASCVD including most adults with diabetes. LDL <100, Optimal in adult patients with low (<7.5%) 10 year ASCVD risk LDL 100-160, Suboptimal LDL >160, High LDL >190, Very high ATPIII Guidelines Reference Ranges for Lipid Panels (NCEP/AMA) . us Floresita Bustillo DO CHEMISTRY ORDERABLES Final Result [facility]# [id number] [address] [place] [address] * MICROALBUMIN/CREATININE RATIO, RANDOM UR (01/09/2019 2:44 PM CDT) MICROALBUMIN, URINE <1.2 No Reference Range mg/dL 01/09/2019 8:11 PM CDT [facility] CREATININE, URINE 95.9 40.0 - 278.0 mg/dL 01/09/2019 8:11 PM CDT [facility] Comment: Reference Range varies with fluid intake and diet. MICROALBUMIN/C REAT RATIO, UR <12.5 <17.0 mg/g 01/09/2019 8:11 PM CDT [facility] Urine URINE SPECIMEN OBTAINED BY CLEAN CATCH PROCEDURE / Unknown Collection / Unknown 01/09/2019 2:44 PM CDT 01/09/2019 7:32 PM CDT Narrative [facility] - 01/09/2019 8:11 PM CDT Condition Microalbumin/Creat ratio Normal Males <17 Normal Females <25 Microalbuminuria Males 17-299 Microalbuminuria Females 25-299 Overt proteinuria >=300 Ro RAMIREZ URINE ORDERABLES Final Result [facility] IA# [id number] [address] [place] [address] * ENDOSCOPY, COLON, DIAGNOSTIC (07/21/2018) Ro DAVISP GI PROCEDURE ORDERABLES Final Result from Last 3 Months or Most Recently Relevant to Health Maintenance Insurance Care Teams Corporate Securities Research Analyst Relationship Specialty Start Date End Date Floresita Bustillo DO [address] [place] [address] PCP - General 01/24/09
--- OUTSIDE RECORDS SUMMARY | 2025-03-01 06:33 | XMS_ITS | Encounter Summary ---
Author Organization [facility] Address [address] [place] [address] Care Team Providers Care Bush And Vine Farmer Fruit Crops Name Role Phone Floresita Bustillo DO Primary Care Provider [phone] Encounter Details Date Type Department Care Team (Latest Contact Info) Description 06/16/2003 Outpatient Historical [facility] Medicine [place] [address], [place] [phone] Aj Senior MD [address] [place] [phone] JOINT PAIN-SHLDER (Primary Dx) Social History Tobacco Use Types Packs/Day Years Used Date Smoking Tobacco: Never Assessed Sex and Gender Information Value Date Recorded Sex Assigned at Not on file 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
--- OUTSIDE RECORDS SUMMARY | 2025-03-01 06:33 | XMS_ITS | Encounter Summary ---
Author Organization [facility] Address [address] [place] [address] Care Team Providers Care Meeting Coordinator Name Role Phone Floresita Bustillo DO Primary Care Provider Encounter Details Date Type Department Care Team (Latest Contact Info) Description 05/16/2004 Outpatient Historical [facility] [place] [address] [place] [address] Nito Vega MD [address] [place] [phone] JOINT PAIN-SHLDER (Primary Dx) Social History Tobacco Use Types Packs/Day Years Used Date Smoking Tobacco: Never Assessed Sex and Gender Information Value Date Recorded Sex Assigned at Not on file 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
--- OUTSIDE RECORDS SUMMARY | 2025-03-01 06:33 | XMS_ITS | Encounter Summary ---
Author Organization [facility] Address [address] [place] [address] Care Team Providers Care Mobile Crane Operator Name Role Phone Floresita Bustillo DO Primary Care Provider [phone] Encounter Details Date Type Department Care Team (Late st Contact Info) Description 02/05/2025 Results Follow-Up [facility] Family Medicine [place] [address] [place] [address] Jarrell Martinez, [facility] [address] [place] [address] [place] CAROTID DOPPLER, CARDIAC EVENT MONITOR Social History Tobacco Use Types Packs/Day Years Used Date Smoking Tobacco: Former Cigarettes 0.5 10 0 12/14/1987 - 12/13/1997 Smokeless Tobacco: Former Comments:Quit smoking: quit approximately 30 years ago Alcohol Use Standard Drinks/Week Comments Not Currently 4 (1 standard drink = 0.6 oz pur e alcohol) Sex and Gender Information Value Date Recorded Sex Assigned at Not on file 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 [place] [phone] Elina Enrique, PA-C [address] [address] 05/27/2025 3:40 PM ASSISTANT TRACK AND FIELD COACH Office Visit [facility] [address] [place] [phone] Floresita Bustillo DO [address] [place] [address] documented as of this encounter Visit Diagnoses Not on filedocumented in this encounter Care Teams Mobile Crane Operator Relationship Specialty Start Date End Date Floresita Bustillo DO [address] [place] [phone] PCP - General 01/24/09 documented as of this encounter
--- OUTSIDE RECORDS SUMMARY | 2025-03-01 06:33 | XMS_ITS | Clinical Summary ---
Author Organization [facility] Address [address] [place] [address] Care Team Providers Care Rubber Compounder Formulator Name Role Phone Floresita Bustillo Primary Care Provider Allergies Active Allergy Reactions Criticality Noted Date Comments Adhesive Tape-Silicones Other (See Comments) 01/12/2022 Rips skin off, use paper tape or coban Sulfa (Sulfonamide Antibiotics) Rash Medium 08/02/2008 Medications rifAXIMin (XIFAXAN) 550 mg Tablet Take 550 mg by mouth 2 times daily. Active fluticasone propionate (FLONASE) 50 mcg/spray [place], Suspension nasal inhalerIndicatio ns:Acute non-recurrent pansinusitis Administer 2 Sprays in each nostril daily. shake before using 48 Gram 4 10/11/19 22 Active folic acid (FOLVITE) 1 mg tablet Take 1 Tablet (1 mg) by mouth daily. 11/02/19 22 Active multivit-min/fol ic/vit K/lycop (MEN'S MULTIVITAMIN ORAL) Take 1 Tablet by mouth daily. Active pantoprazole (PROTONIX) 40 mg Tablet, Delayed Release (E.C.)Indication s:Erosive esophagitis Take 1 Tablet (40 mg) by mouth 2 times daily. 180 Tablet 4 02/25/20 23 Active CPAP / BIPAP suppliesIndicati ons:Obstructive sleep apnea Length of need: 99 months Mask Type: full face with headgear every 6 months, mask of choice, Tubing: heated 1 every 3 months, water chamber 1 every 6 months, chin strap 1 every 6 months, filters disposable 2 per month, filters reusable 1 per 6 months. 1 Each 05/14/20 Active ferrous sulfate 325 mg (65 mg iron) tablet Twice A Day 12/29/19 Active ZINC SULFATE ORAL Take 50 mg by mouth 2 times daily. Active flash glucose sensor (FreeStyle Xena 14 Day Sensor) KitIndications:T ype 2 diabetes mellitus without complication, without long-term current use of insulin ([facility]) 1 Each by [facility]Non-Drug; Combo Route) route daily. 2 Kit 06/03/20 24 Active midodrine (PROAMATINE) 5 mg tablet TAKE 1 TABLET 3 TIMES A DAY 270 Tablet 3 06/08/20 24 Active levothyroxine 25 mcg tabletIndication s:Hypothyroidism due to acquired atrophy of thyroid TAKE 1 TABLET EVERY MORNING 100 Tablet 3 06/08/20 24 Active Basaglar KwikPen U-100 Insulin 100 unit/mL (3 mL) pen syringe INJECT 25 UNITS SUBCUTANEOUSLY DAILY AT BEDTIME 15 mL 5 06/24/20 24 Active ondansetron (ZOFRAN ODT) 8 mg Tablet, Rapid Dissolve Place 1 Tablet (8 mg) under tongue every 6 hours as needed for Nausea/Emesis. 40 Tablet 3 07/24/19 25 Active insulin aspart U-100 (NovoLOG Flexpen U-100 Insulin) 100 unit/mL pen syringe Inject 5-20 Units by subcutaneous injection 4 times daily with meals and at bedtime. 15 mL 11 08/14/19 25 Active betamethasone dipropionate (DIPROSONE) 0.05 % Ointment APPLY TO RASH TWICE DAILY ON HANDS, LEGS, AND BACK. MIX WITH AQUAPHOR DIRECTED. 06/25/20 24 Active lidocaine (LIDODERM) 5 % Adhesive Patch, MedicatedIndicat ions:Neuropathic pain APPLY 1-3 PATCHES TO AFFECTED AREA EVERY 12 HOURS. CLARIFY: APPLY 12 HOURS ON AND 12 HOURS OFF 90 Patch 3 10/06/19 25 Active Enulose 10 gram/15 mL oral solutionIndicati ons:Hyperammonem ia TAKE 3 TABLESPOONFULS (=45ML) 6 TIMES DAILY 77927 mL 3 10/21/19 25 Active sucralfate (CARAFATE) 1 gram tabletIndication s:Chronic gastric ulcer with hemorrhage TAKE ONE TABLET (1 GRAM) BY MOUTH 4 TIMES DAILY BEFORE MEALS AND AT BEDTIME. 120 Tablet 11 11/12/19 Active furosemide (Lasix) 40 mg tablet Take 1 Tablet (40 mg) by mouth daily. 90 Tablet 12/26/19 Active spironolactone (ALDACTONE) 50 mg tablet Take 1 Tablet (50 mg) by mouth daily. 90 Tablet 12/26/19 Active oxyCODONE (ROXICODONE) 10 mg tabletIndication s:Chronic right shoulder pain Take 1 Tablet (10 mg) by mouth 2 times daily as needed for Pain, Moderate. Max Daily Amount: 20 mg 60 Tablet 12/26/19 Active Hospital, Clinic, or Other Facility Administered Medication Ordered Dose Route Frequency Start Date End Date Status dexAMETHasone (DECADRON) injection 4 mgIndications:Shoulder blade pain 4 mg IM ONE TIME ONLY 02/17/2025 02/17/2025 Ended triamcinolone acetonide (KENALOG-40) injectable suspension 40 mgIndications:Shoulder blade pain 40 mg IM ONE TIME ONLY 02/17/2025 02/17/2025 Ended lidocaine PF 1% (XYLOCAINE MPF) injection 3 mLIndications:Shoulder blade pain 3 mL Ifil ONE TIME ONLY 02/17/2025 02/17/2025 Ended Active Problems Problem Noted Date Diagnosed Date 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) 02/17/2025 ASCVD (arteriosclerotic cardiovascular disease) 02/17/2025 Iron deficiency anemia due to chronic blood loss 02/17/2025 Chronic blood loss anemia 01/05/2025 Neuropathic pain 11/24/2022 Frail elderly 04/13/2022 Thrombocytopenia 11/26/2021 Spontaneous bacterial peritonitis 10/27/2021 Debility 10/27/2021 BPH (benign prostatic hyperplasia) 10/27/2021 Stage 3a chronic kidney disease 08/17/2021 Chronic right shoulder pain 05/07/2021 Chronic midline thoracic back pain 02/07/2021 Primary insomnia 12/06/2020 Chronic pain of both shoulders 11/20/2020 Chronic GI bleeding 11/20/2020 Benign paroxysmal positional vertigo due to bilateral vestibular disorder 11/20/2020 Primary osteoarthritis involving multiple joints 11/20/2020 Hyperammonemia 11/20/2020 Alcoholic cirrhosis of liver without ascites 09/2019 Chronic anemia 05/17/2020 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 04/18/20 Fibroscan CAP 204, LSM 75 kPa Nummular eczema 10/04/2017 OSITO on CPAP 06/09/2017 Type 2 diabetes mellitus wit hout complication, without long-term current use of insulin 07/11/2016 Hypothyroidism due to acquired atrophy of thyroi d 11/22/2014 Elevated LDL cholesterol level 09/13/2014 Trochanteric bursitis 01/26/2013 Plantar fasciitis 05/20/2011 Essential hypertension 08/02/2008 ED (erectile dysfunction) Gastroesophageal reflux dise ase with esophagitis and hemorrhage Resolved Problems Problem Noted Date Diagnosed Date Resolved Date Decompensated hepatic cirrhosis 10/27/2021 11/24/2022 Hepatic encephalopathy 10/27/202111/24 Severe protein-calorie malnutrition 08/17/2021 11/24/2022 Secondary esophageal varices with bleeding 05/17/2020 07/16/2021 Hypothyroidism due to non-me dication exogenous substances 11/22/2014 04/04/2016 Encounters Date Type Department Care Team Description 02/19/2025 Results Follow-Up [facility] [address] [place] [phone] Jarrell Martinez FNP CBC WITH DIFFERENTIAL, COMPREHENSIVE METABOLIC PANEL, IRON, TIBC, AND PERCENT SATURATION, AMMONIA LEVEL 02/17/2025 9:00 AM CDT Office Visit [facility] [address] [place] [phone] Jarrell Martinez FNP Muscle cramping (Primary Dx); Gastric antral vascular ectasia (watermelon stomach); Alcoholic cirrhosis of liver without ascites (CMS/HCC); Iron deficiency anemia due to chronic blood loss; Essential hypertension; ASCVD (arteriosclerotic cardiovascular disease); Shoulder blade pain 02/09/2025 External Device Data STL ABSTRACTION Provider, Abstract 02/09/2025 External Device Data STL ABSTRACTION Provider, Abstract 02/05/2025 Results Follow[facility]Up [facility] [address] [facility] [place] [phone] Jarrell Martinez, CRIMINAL JUSTICE INSTRUCTOR US CAROTID DOPPLER, CARDIAC EVENT MONITOR 02/04/2025 2:52 PM CDT - 02/04/2025 11:59 PM CDT Hospital Encounter [facility] Ultrasound [place] [address] [place] [phone] Jarrell Martinez, CRIMINAL JUSTICE INSTRUCTOR Discharge Disposition: Home or Self Care 02/02/2025 12:37 PM CDT - 02/02/2025 11:59 PM CDT Hospital Encounter [facility] Respiratory Therapy Services [place] [address] [facility] [address] [place] [phone] Jarrell Martinez FNP Discharge Disposition: Home or Self Care 01/25/2025 External Device Data Initial Department [address] [place] [address] Dr SHORE: [place] [address] Jeferson German Md 01/21/2025 1:13 PM CDT Anesthesia Event [facility] Endoscopy [address] [place] [phone] Cam Núñez MD Goodin, Kelly G, AA-C 01/21/2025 12:20 PM CDT - 01/21/2025 12:40 PM CDT Surgery [facility] Endoscopy [address] [place] [phone] Larry Tuttle MD ESOPHAGOGASTRODUODENOSCOPY 01/21/2025 10:51 AM CDT - 01/21/2025 2:08 PM CDT Hospital Encounter [facility] Endoscopy [address] [place] [phone] Larry Tuttle MD Discharge Disposition: Home or Self Care 01/19/2025 11:20 AM CDT Office Visit [facility] [address] [place] [phone] Jarrell Martinez, CRIMINAL JUSTICE INSTRUCTOR Frequent falls (Primary Dx); Near syncope; Alcoholic cirrhosis of liver without ascites (CMS/HCC); Hyperammonemia; Iron deficiency anemia due to chronic blood loss 01/19/2025 External Device Data STL ABSTRACTION Provider, Abstract 01/19/2025 External Device Data STL ABSTRACTION Provider, Abstract 01/19/2025 External Device Data STL ABSTRACTION Provider, Abstract 01/18/2025 2:47 PM CDT - 01/18/2025 11:59 PM CDT Hospital Encounter [facility] Outpatient Services [address] [place] [address] Floresita Bustillo, DO Discharge Disposition: Home or Self Care 01/16/2025 Telephone [facility] [address] [place] [phone] Karen Mcdonnell RN [facility] Reports Developer 01/15/2025 External Device Data Initial Department [address] [place] [address] Dr LEALN: [place] [address] Jeferson German Md 01/14/2025 1:39 PM CDT - 01/14/2025 4:58 PM CDT Emergency [facility] Emergency Medicine [address] [place] [phone] Ian Rivas DO History of falling (Primary Dx); Abrasion of left forearm, initial encounter; Imbalance Discharge Disposition: Home or Self Care 01/14/2025 Travel 01/14/2025 External Device Data Initial Department [address] [place] [address] Dr LEALN: [place] [address] Jeferson German Md 01/13/2025 2:45 PM CDT - 01/13/2025 11:59 PM CDT Hospital Encounter [facility] Outpatient [address] [phone] Floresita Bustillo, DO Discharge Disposition: Home or Self Care 01/13/2025 External Device Data Initial Department [address] [place] [address] Dr SHORE: [place] [address] Jeferson German Md 01/12/2025 9:09 PM CDT - 01/12/2025 11:54 PM CDT Emergency [address] [phone] Jaime Corea MD Alcoholic cirrhosis, unspecified whether ascites present (CMS/HCC) (Primary Dx) Discharge Disposition: Home or Self Care 01/12/2025 Travel 01/12/2025 External Device Data STL ABSTRACTION Provider, Abstract 01/11/2025 2:38 PM CDT - 01/11/2025 11:59 PM CDT Hospital Encounter [facility] [address] [phone] Floresita Bustillo, Discharge Disposition: Home or Self Care 01/07/2025 2:38 PM CDT - 01/07/2025 11:59 PM CDT Hospital Encounter [facility] [address] [place] [address] Floresita Bustillo, Discharge Disposition: Home or Self Care 01/05/2025 2:46 PM CDT - 01/05/2025 11:59 PM CDT Hospital Encounter [facility] [address] [place] [address] Floresita Bustillo, Discharge Disposition: Home or Self Care 01/05/2025 [facility] [address] [place] [address] Floresita Bustillo, Requesting Sooner Appointment 01/05/2025 Orders Only [facility] [address] [place] [facility] [place] [place] [phone] Floresita Bustillo DO Chronic anemia (Primary Dx); Chronic GI bleeding 12/29/2024 Results Follow-Up [facility] [address] [place] [facility] [place] [place] [phone] Floresita Bustillo DO CBC WITH DIFFERENTIAL 12/28/2024 9:45 AM CDT Clinical Support [facility] [address] [place] [facility] [place] [place] [phone] Chronic GI bleeding; Chronic anemia; Thrombocytopenia 12/25/2024 Telephone [facility] [address] [place] [phone] Floresita Bustillo DO Provider Call 12/25/2024 Telephone [facility] [address] [place] [phone] Floresita Bustillo DO pain med issue 12/25/2024 Orders Only [facility] [address] [place] [phone] Floresita Bustillo DO Chronic GI bleeding (Primary Dx); Chronic anemia; Thrombocytopenia 12/25/2024 Results Follow-Up [facility] [address] [place] [phone] Floresita Bustillo DO PTT 12/21/2024 1:40 PM CDT Office Visit [facility] Gastroenterology [address] [place] [address] Larry Tuttle MD GAVE (gastric antral vascular ectasia) (Primary Dx) 12/18/2024 8:40 AM CDT Procedure visit [facility] [address] [place] [phone] Floresita Bustillo DO Hyperammonemia (Primary Dx); 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 (CMS/HCC); Essential hypertension; Type 2 diabetes mellitus without complication, without long-term current use of insulin (CMS/HCC); Debility; Chronic GI bleeding; Chronic anemia; Thrombocytopenia; Alcoholic cirrhosis of liver without ascites (CMS/HCC); Hypothyroidism due to acquired atrophy of thyroid; Frail elderly; Gastroesophageal reflux disease with esophagitis and hemorrhage; Primary osteoarthritis involving multiple joints; OSITO on CPAP; Primary osteoarthritis of right shoulder; Primary osteoarthritis of left hip 12/18/2024 Telephone [facility] [address] [place] [address] Floresita Bustillo DO Medication Assistance 12/16/2024 Telephone [facility] [address] [facility] [place] [phone] Floresita Bustillo, DO Clinical Consult Before Scheduling 12/07/2024 Results Follow-Up [facility] [address] [facility] [place] [address] Floresita Bustillo, DO CBC WITH DIFFERENTIAL 12/02/2024 External Device Data STL ABSTRACTION Provider, Abstract 12/01/2024 External Device Data STL ABSTRACTION Provider, Abstract 11/30/2024 9:00 AM CDT Clinical Support [facility] [address] [facility] [place] [phone] Hyperammonemia; 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 (CMS/HCC); Stage 3a chronic kidney disease (CMS/HCC); Essential hypertension from Last 3 Months Immunizations Immunization Administration Dates Next Due (COMIRNATY)(12 YR UP) COVID- 19 VACCINE, MRNA, SPIKE PROTEIN, LNP, SARAH(PF) 30 MCG/0.3 ML IM SUSP 05/15/2024 (HAVRIX/VAQTA)(19 YRS UP) HE PATITIS A VACCINE ADULT DOSAGE 1 ML IMM 05/29/2019 Hepatitis A Vaccine 05/29/2019 INFLUENZA VACCINE HIGH DOSE QUADRIVALENT 65 YR UP PF IM 04/09/2023,04/02/2022,03/23/2021 INFLUENZA VACCINE HIGH DOSE TRIVALENT SPLIT VIRUS, (65 YR UP), 0.5ML (PF), IM 05/21/2024 INFLUENZA VACCINE QUADRIVALE NT 3 YR UP PF IM 05/29/2017,04/04/2016,05/27/2015 INFLUENZA VACCINE QUADRIVALE NT 6 MOS UP IM 05/29/2019,04/28/2018 INFLUENZA VACCINE QUADRIVALE NT 6 MOS UP PF IM 04/14/2020,05/29/2017,04/04/2016,2014 Influenza Vaccine Quad Split 3+ Yrs Im 04/28/2018 Influenza Vaccine Split 3+ Yrs IM 05/18/2011 Influenza Vaccine Split 3+ Yrs PF IM 07/31/2012 Influenza Vaccine Tri Split 4+ Im 05/18/2011 Influenza Vaccine Tri Split 4+ Pf Im 07/31/2012 Family History Medical History Relation Name Comments Diabetes Father Luis Muñoz Heart Disease Father Luis Muñoz Anemia Mother Trice Muñoz Diabetes Mother Trice Muñoz Liver Disease Mother Trice Muñoz Relation Name Status Comments Brother Alive Father Luis Muñoz (Age 83) Mother Trice Muñoz (Age 63) Sister Alive Social History Tobacco Use Types Packs/Day Years Used Date Smoking Tobacco: Former Cigarettes 0.5 10 0 12/14/1987 - 12/13/1997 Smokeless Tobacco: Former Tobacco Cessation:Counseling Given: Not Answered Comments:Quit smoking: quit approximately 30 years ago Alcohol Use Standard Drinks/Week Comments Not Currently 4 (1 standard drink = 0.6 oz pur e alcohol) Sex and Gender Information Value Date Recorded Sex Assigned at Not on file Legal Sex Male 2:11 PM SUPERVISOR SHIPPING ROOM Gender Identity Not on file Sexual Orientation Not on file Last Filed Vital Signs Vital Sign Reading Time Taken Comments Blood Pressure 128/72 02/17/2025 9:10 AM CDT Pulse 81 02/17/2025 9:10 AM CDT Temperature 36.8 C (98.2 F) 02/17/2025 9:10 AM CDT Respiratory Rate 17 02/17/2025 9:10 AM CDT Oxygen Saturation 95% 02/17/2025 9:10 AM CDT Inhaled Oxygen Concentration - - Weight 107.6 kg (237 lb 3.2 oz) 02/17/2025 9:10 AM CDT Height 188 cm (6' 2 ) 02/17/2025 9:10 AM CDT Body Mass Index 30.45 02/17/2025 9:10 AM CDT Plan of Treatment Upcoming Encounters Date Type Department Care Team (Late st Contact Info) Description 05/03/2025 11:30 AM CDT Office Visit [facility] Gastroenterology- [place] [address] [place] [address] Elina Enrique PA-C [address] [place] [address] 05/27/2025 3:40 PM SUPERVISOR SHIPPING ROOM Office Visit [facility] Family Medicine [place] [address] [facility] [phone] Floresita Bustillo, DO [address] [place] [place] [phone] Health Maintenance Due Date Last Done Comments PNEUMOCOCCAL VACCINE 50+ YEA RS (1 of 2 - PCV) 01/26/1975 ZOSTER VACCINE (1 of 2) 01/26/1975 FIT-DNA Q 3 years 01/26/2001 Flex Sig/CT Colonography Q 5 years 01/26/2001 DTAP/TDAP/TD VACCINES (1 - Tdap) 04/06/2006 04/05/20 06 RSV VACCINE (60+ or ) (1 - Risk 60-74 years 1-dose series) 2016 FIT/FOBT Q 1 year 12/21/2021 12/21/2020, 06/17/2018 DIABETES ANNUAL FOOT EXAM 05/14/20242022, 12/05/2021, 11/14/2020 COVID-19 Vaccine (5 - Pfizer risk 2023- season) 2024 05/15/2024, 04/12/2021, 09/09/2020, Additional history exists INFLUENZA VACCINE (#1) 2025 , 04/09/2023, 04/02/2022, Additional history exists DIABETES ANNUAL RETINAL EXAM 04/30/2025, 04/30/2024, 09/13/2021, Additional history exists DIABETES HBA1C Q 6 MONTHS 05/06/20252024, 11/04/2024, 09/09/2024, Additional history exists Traditional Medicare (ACO) A nnual Wellness Visit 05/22/2025 05/21/2024, 05/14/2023 DIABETES MICROALBUMIN ANNUAL SCREEN 09/09/2025 09/09/2024, 05/21/2024, 07/31/2022, Additional history exists DIABETES: A1C (Auto Order) 11/04/202511/04, 11/04/2024, 09/09/2024, Additional history exists LDL CHOLESTEROL ANNUAL 11/04/2025 5, 05/21/2024, 11/19/2023, Additional history exists COLORECTAL SCREENING 01/10/2033 01/10/2023, 01/10/2023, 01/10/2023, Additional history exists Colorectal Cancer Screening 01/10/2033 Abdominal Aortic Aneurysm (A AA) Screening Completed 10/14/2021, 10/14/2021, 07/22/2019 Procedures Procedure Name Priority Date/Time Associated Diagnosis Comments AMMONIA LEVEL Routine 02/17/2025 9:34 AM CDT Alcoholic cirrhosis of liver without ascites (CMS/HCC) IRON, TIBC, AND PERCENT SATURATION Routine 02/17/2025 9:30 AM CDT Iron deficiency anemia due to chronic blood loss COMPREHENSIVE METABOLIC PANEL Routine 9:30 AM CDT Muscle cramping Gastric antral vascular ectasia (watermelon stomach) Alcoholic cirrhosis of liver without ascites (CMS/HCC) Iron deficiency anemia due to chronic blood loss CBC WITH DIFFERENTIAL Routine 02/17/2025 9:30 AM CDT Muscle cramping Gastric antral vascular ectasia (watermelon stomach) Alcoholic cirrhosis of liver without ascites (CMS/HCC) Iron deficiency anemia due to chronic blood loss GA INJECTION SINGLE/HARNESS CUTTER TRIGGER POINT 1/2 MUSCLES Routine 02/17/2025 9:00 AM CDT Shoulder blade pain US CAROTID DOPPLER Routine 02/04/2025 3:46 PM CDT Frequent falls Near syncope CARDIAC EVENT MONITOR Routine 02/02/2025 3:00 PM CDT Frequent falls Near syncope UPPER ENDOSCOPY REPORT 1:34 PM CDT GA ESOPHAGOGASTRODUODENOSCOP Y TRANSORAL DIAGNOSTIC 01/21/2025 12:20 PM CDT GAVE (gastric antral vascular ectasia) Case Notes Procedure :EGD Special Notes: Dx: GAVE (gastric antral vascular ectasia) BT:NONE BT managed by: Diabetic: YES Diabetic/WT med:NONE--Novolog, Basglar LOC & REASON:Hosp/Cirrhosis BMI: 32.08 Last Procedure date & location N/A Referring Provider Floresita Bustillo Doc:Dr Larry Tuttle Insurance: [facility] Last GI appt 12/21/24 Tuttle XR CHEST PA AND LATERAL 2 VW Stat 09/2024 3:[address] HEAD WO CONTRAST Stat 01/14/2025 3:28 PM CDT AMMONIA LEVEL Stat 01/14/2025 2:40 PM CDT SALICYLATE LEVEL Stat 01/14/2025 2:00 PM CDT ACETAMINOPHEN LEVEL Stat 01/14/2025 2:00 PM CDT MAGNESIUM LEVEL Stat 01/14/2025 2:00 PM CDT C-REACTIVE PROTEIN Stat 01/14/2025 2:00 PM CDT LACTIC ACID Stat 01/14/2025 2:00 PM CDT TSH Stat 01/14/2025 2:00 PM CDT ETHANOL LEVEL Stat 01/14/2025 2:00 PM CDT COMPREHENSIVE METABOLIC PANEL Stat 2:00 PM CDT SEDIMENTATION RATE Stat 01/14/2025 2:00 PM CDT D-DIMER Stat 01/14/2025 2:00 PM CDT CBC WITH DIFFERENTIAL Stat 01/14/2025 2:00 PM CDT URINALYSIS W/REFLEX MICROSCOPIC Stat 01/12/2025 10:24 PM CDT DIFFERENTIAL, MANUAL Stat 01/12/2025 9:11 PM CDT AMMONIA LEVEL Stat 01/12/2025 9:11 PM CDT COMPREHENSIVE METABOLIC PANEL Stat 9:11 PM CDT CBC WITH DIFFERENTIAL Stat 01/12/2025 9:11 PM CDT CBC WITH DIFFERENTIAL Routine 12/28/2024 9:47 AM CDT Chronic GI bleeding Chronic anemia Thrombocytopenia IRON, TIBC, AND PERCENT SATURATION Routine 12/28/2024 9:47 AM CDT Chronic GI bleeding Chronic anemia Thrombocytopenia CBC WITH DIFFERENTIAL Routine 12/18/2024 9:44 AM CDT Hyperammonemia 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 (CMS/HCC) Essential hypertension Type 2 diabetes mellitus without complication, without long-term current use of insulin (CMS/HCC) Debility Chronic GI bleeding Chronic anemia Thrombocytopenia Alcoholic cirrhosis of liver without ascites (CMS/HCC) COMPREHENSIVE METABOLIC PANEL Routine 9:44 AM CDT Hyperammonemia 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 (CMS/HCC) Essential hypertension Type 2 diabetes mellitus without complication, without long-term current use of insulin (CMS/HCC) Debility Chronic GI bleeding Chronic anemia Thrombocytopenia Alcoholic cirrhosis of liver without ascites (CMS/HCC) IRON, TIBC, AND PERCENT SATURATION Routine 12/18/2024 9:44 AM CDT Hyperammonemia 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 (CMS/HCC) Essential hypertension Type 2 diabetes mellitus without complication, without long-term current use of insulin (CMS/HCC) Debility Chronic GI bleeding Chronic anemia Thrombocytopenia Alcoholic cirrhosis of liver without ascites (CMS/HCC) VITAMIN B12 LEVEL Routine 12/18/2024 9:44 AM CDT Hyperammonemia 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 (CMS/HCC) Essential hypertension Type 2 diabetes mellitus without complication, without long-term current use of insulin (CMS/HCC) Debility Chronic GI bleeding Chronic anemia Thrombocytopenia Alcoholic cirrhosis of liver without ascites (CMS/HCC) ALPHA FETOPROTEIN TUMOR MARKER Routine 0 12/18/2024 9:44 AM CDT Hyperammonemia 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 (CMS/HCC) Essential hypertension Type 2 diabetes mellitus without complication, without long-term current use of insulin (CMS/HCC) Debility Chronic GI bleeding Chronic anemia Thrombocytopenia Alcoholic cirrhosis of liver without ascites (CMS/HCC) PTT Routine 12/18/2024 9:44 AM CDT Hyperammonemia 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 (CMS/HCC) Essential hypertension Type 2 diabetes mellitus without complication, without long-term current use of insulin (CMS/HCC) Debility Chronic GI bleeding Chronic anemia Thrombocytopenia Alcoholic cirrhosis of liver without ascites (CMS/HCC) CBC WITH DIFFERENTIAL Routine 11/30/2024 9:35 AM CDT Hyperammonemia 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 (CMS/HCC) Stage 3a chronic kidney disease (CMS/HCC) Essential hypertension COMPREHENSIVE METABOLIC PANEL Routine 9:35 AM CDT Hyperammonemia 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 (CMS/HCC) Stage 3a chronic kidney disease (CMS/HCC) Essential hypertension AMMONIA LEVEL Routine 11/30/2024 9:35 AM CDT Hyperammonemia 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 (CMS/HCC) Stage 3a chronic kidney disease (CMS/HCC) Essential hypertension LIPID PANEL Routine 11/04/2024 10:20 AM CDT Hyperammonemia Type 2 diabetes mellitus without complication, without long-term current use of insulin (CMS/HCC) 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 (CMS/HCC) Stage 3a chronic kidney disease (CMS/HCC) Essential hypertension Hypothyroidism due to acquired atrophy of thyroid Debility Frail elderly Chronic GI bleeding HEMOGLOBIN A1C Routine 11/04/2024 10:20 AM CDT Hyperammonemia Type 2 diabetes mellitus without complication, without long-term current use of insulin (CMS/HCC) 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 (CMS/HCC) Stage 3a chronic kidney disease (CMS/HCC) Essential hypertension Hypothyroidism due to acquired atrophy of thyroid Debility Frail elderly Chronic GI bleeding MICROALBUMIN/CREATININE RATI O, RANDOM UR Routine 09/09/2024 3:08 PM [employer] Type 2 diabetes mellitus without complication, without long-term current use of insulin (CMS/HCC) HM DIABETES EYE EXAM Routine 04/30/2024 4:10 PM CDT ENDOSCOPY, COLON, DIAGNOSTIC Routine 12:21 PM CDT POC OCCULT BLOOD UP TO 3 CARDS Routine 0 12/21/2020 8:43 AM CDT US ABDOMEN COMPLETE Routine 07/22/2019 9:51 AM [employer] Hepatic cirrhosis, unspecified hepatic cirrhosis type, unspecified whether ascites present (CMS/HCC) Abdominal pain, acute, right upper quadrant from Last 3 Months or Most Recently Relevant to Health Maintenance Results * AMMONIA LEVEL (02/17/2025 9:34 AM CDT) Only the most recent of4 resultswithin the time period is included. AMMONIA TNP umol/L [facility] Comment: TEST NOT PERFORMED. Due to improper storage and prolonged exposure to ambient/elevated temperatures at [facility], the specimen has thawed. FASTING:UNKNOWN FASTING: UNKNOWN Test Performed at: [facility] [address] [place] [address] Adam Condon MD Blood, venous 02/17/2025 9:3 4 AM CDT 02/17/2025 9:35 AM CDT Jarrell Martinez CRIMINAL JUSTICE INSTRUCTOR CHEMISTRY ORDERABLES Final Result [facility] [phone] [facility] [address] [place] [phone] * IRON, TIBC, AND PERCENT SATURATION (02/17/2025 9:30 AM CDT) Only the most recent of3 resultswithin the time period is included. IRON 112 50 - 180 mcg/dL [facility] TIBC 263 250 - 425 mcg/dL (calc) [facility] IRON % SATURATION 43 20 - 48 % (calc) [facility] Comment: Test Performed at: [facility] [address] [place] [address] Adam Condon MD Blood 02/17/2025 9:30 AM CDT 02/17/2025 9:33 AM CDT us Hangraissa Tong Michelle CRIMINAL JUSTICE INSTRUCTOR CHEMISTRY ORDERABLES Final Result [facility] [phone] [facility] [address] * (ABNORMAL) CBC WITH DIFFERENTIAL (02/17/2025 9:30 AM CDT) Only the most recent of6 resultswithin the time period is included. WBC 6.2 3.8 - 10.8 Thousand/u L [facility] RBC 5.56 4.20 - 5.80 Million/uL [facility] HEMOGLOBIN 15.6 13.2 - 17.1 g/dL [facility] HEMATOCRIT 50.3(H) 38.5 - 50.0 % [facility] MCV 90.5 80.0 - 100.0 fL [facility] MCH 28.1 27.0 - 33.0 pg [facility] MCHC 31.0(L) 32.0 - 36.0 g/dL [facility] Comment: For adults, a slight decrease in the calculated MCHC value (in the range of 30 to 32 g/dL) is most likely not clinically significant; however, it should be interpreted with caution in correlation with other red cell parameters and the patient's clinical condition. RDW 23.4(H) 11.0 - 15.0 % [facility] NEUTROPHIL ABSOLUTE 4,340 1,500 - 7,800 cells/uL [facility] LYMPHOCYTE ABSOLUTE 806(L) 850 - 3,900 cells/uL [facility] MONOCYTE ABSOLUTE 756 200 - 950 cells/uL [facility] EOSINOPHIL ABSOLUTE 229 15 - 500 cells/uL [facility] BASOPHILS ABSOLUTE 68 0 - 200 cells/uL [facility] NEUTROPHIL 70 % [facility] LYMPHOCYTES 13.0 % [facility] MONOCYTE 12.2 % [facility] EOSINOPHILS 3.7 % [facility] BASOPHILS 1.1 % [facility] COMMENT HEMATOLOGY [facility] Comment: Anisocytosis 2 + Ovalocytes 1 + PLATELETS TNP Thousand/u L [facility] Comment: TEST(S) NOT PERFORMED: PLATELET COUNT MPV Unable to report due to significant clumping. Platelet estimate appears to be decreased but greater than 30,000/uL. FASTING:UNKNOWN FASTING: UNKNOWN Test [facility] [address] Adam Condon MD Blood 02/17/2025 9:30 AM CDT 02/17/2025 9:33 AM CDT Jarrell Martinez CRIMINAL JUSTICE INSTRUCTOR HEMATOLOGY ORDERABLES Nancy parks Result [facility] [phone] [facility] [address] * (ABNORMAL) COMPREHENSIVE METABOLIC PANEL (02/17/2025 9:30 AM CDT) Only the most recent of5 resultswithin the time period is included. GLUCOSE 106(H) 65 - 99 mg/dL [facility] Comment: Fasting reference interval For someone without known diabetes, a glucose value between 100 and 125 mg/dL is consistent with prediabetes and should be confirmed with a follow-up test. BUN 22 7 - 25 mg/dL [facility] CREATININE 1.15 0.70 - 1.35 mg/dL [facility] GFR 69 > OR = 60 mL/min/1. 73m2 [facility] BUN/CREAT RATIO SEE NOTE: 6 - 22 (calc) [facility] Comment: Not Reported: BUN and Creatinine are within reference range. SODIUM 138 135 - 146 mmol/L [facility] POTASSIUM 4.3 3.5 - 5.3 mmol/L [facility] CHLORIDE 105 98 - 110 mmol/L [facility] CO2 24 20 - 32 mmol/L [facility] CALCIUM 8.7 8.6 - 10.3 mg/dL [facility] TOTAL PROTEIN 6.0(L) 6.1 - 8.1 g/dL [facility] ALBUMIN 3.3(L) 3.6 - 5.1 g/dL [facility] GLOBULIN 2.7 1.9 - 3.7 g/dL (calc) [facility] ALBUMIN/GLOBULIN RATIO 1.2 1.0 - 2.5 (calc) [facility] BILIRUBIN TOTAL 2.1(H) 0.2 - 1.2 mg/dL [facility] ALKALINE PHOSPHATASE 92 35 - 144 U/L [facility] AST 45(H) 10 - 35 U/L [facility] ALT 43 9 - 46 U/L [facility] Comment: FASTING:UNKNOWN FASTING: UNKNOWN Test Performed at: [facility] [address] Adam Condon MD Blood 02/17/2025 9:30 AM CDT 02/17/2025 9:33 AM CDT us Jarrell RAMIREZ CHEMISTRY ORDERABLES Final Result [facility] [phone] [facility] [address] * GA INJECTION SINGLE/HARNESS CUTTER TRIGGER POINT 1/2 MUSCLES (02/17/2025 9:00 AM CDT) Narrative [facility] - 02/17/2025 9:00 AM CDT Jarrell Martinez FNP 02/17/2025 9:51 AM Injection Trigger Point Date/Time: 02/17/2025 9:00 AM Performed by: Jarrell Martinez FNP Authorized by: Jarrell Martinez FNP Preparation: Patient was prepped and draped in the usual sterile fashion. Local anesthesia used: yes Anesthesia: Local anesthesia used: yes Local Anesthetic: topical anesthetic Sedation: Patient sedated: no Patient tolerance: patient tolerated the procedure well with no immediate complications Comments: 40 mg Kenalog +4 mg dexamethasone +3 mL 1% lidocaine injected into left shoulder blade maximum muscular tenderness area us Jarrell RAMIREZ PROCEDURE/MINOR SURGICAL O RDERABLES Final Result Performing Organization Address City/State/[facility] Co de Phone Number [facility] CLIA# [id number] [address] [place] [address] * US CAROTID DOPPLER (02/04/2025 3:46 PM CDT) Anatomical Region Laterality Modality Neck Ultrasound 02/04/2025 3:19 PM CDT Narrative 02/04/2025 9:40 PM CDT [facility] Radiology Services - Noninvasive Vascular [address] [address] Noninvasive Vascular Lab Cerebrovascular Exam Carotid Duplex Patient: Luis Muñoz Study ID: [id number] Gender: M : 1955 Age: 70 Room: Height: 188cm Weight: 111.1kg BSA: 2.44m^2 Pt status: Outpatient Study Date: 02/04/2025 Study Time: 03:19:27 PM BSA: 2.44m^2 Ordering: Jarrell Martinez Interpreting:Cornelia Chapa Can Capper: Deedee Nicolas History: Risk factors: Former smoker for over 20 years. Hypertension. Diabetes mellitus. Recent heart murmur. Summary Moderate to severe plaque is visualized in both carotid bulbs, but there is no evidence of hemodynamically significant narrowing in either carotid system. Antegrade flow is noted in both vertebral arteries. Impression: Study demonstrates no hemodynamically significant extracranial carotid artery disease bilaterally. Study data: Carotid duplex study. Complete study and Doppler flow study including spectral analysis, color and newby scale imaging. Height: 188cm. Height: 74in. Weight: 111.1kg. Weight: 244.9lb. BMI: 31.4kg/m^2. BSA: 2.44m^2. Location: Vascular laboratory. Patient status: Outpatient. Study status: Routine. Procedure: A vascular evaluation was performed. Image quality was good. Arterial flow: - Right CCA proximal: Right CCA proximal 0.78m/sec 0.12m/sec - Right CCA mid: Right CCA mid 0.65m/sec 0.11m/sec - Right CCA distal: Right CCA distal 0.67m/sec 0.13m/sec - Right ICA proximal: Right ICA proximal 0.62m/sec 0.18m/sec 0.8 1.39 - Right ICA mid: Right ICA mid 0.83m/sec 0.24m/sec 1.06 1.92 - Right ICA distal: Right ICA distal 0.84m/sec 0.18m/sec 1.07 1.42 - Right ECA: Right ECA 0.8m/sec 0.07m/sec - Right vertebral: Right vertebral 0.46m/sec 0.1m/sec - Left CCA proximal: Left CCA proximal 0.82m/sec 0.15m/sec - Left CCA mid: Left CCA mid 0.86m/sec 0.13m/sec - Left CCA distal: Left CCA distal 0.79m/sec 0.13m/sec - Left ICA proximal: Left ICA proximal 0.7m/sec 0.2m/sec 0.81 1.29 - Left ICA mid: Left ICA mid 0.6m/sec 0.16m/sec 0.69 1.04 - Left ICA distal: Left ICA distal 0.6m/sec 0.19m/sec 0.69 1.25 - Left ECA: Left ECA 0.9m/sec 0.13m/sec - Left vertebral: Left vertebral 0.6m/sec 0.11m/sec Prepared and Electronically Authenticated Cornelia Chapa 02/04/2025 21:40 Procedure Note Cornelia Chapa DO - 02/04/2025 [facility] Radiology Services - Noninvasive Vascular [address] [address] Noninvasive Vascular Lab Cerebrovascular Exam Carotid Duplex Patient: Luis Muñoz Study ID: [id number] Gender: M : 1955 Age: 70 Room: Height: 188cm Weight: 111.1kg BSA: 2.44m^2 Pt status: Outpatient Study Date: 02/04/2025 Study Time: 03:19:27 PM BSA: 2.44m^2 Ordering: Jarrell Martinez Interpreting:Cornelia Chapa Can Capper: Deedee Nicolas History: Risk factors: Former smoker for over 20 years. Hypertension. Diabetes mellitus. Recent heart murmur. Summary Moderate to severe plaque is visualized in both carotid bulbs, but thereis no evidence of hemodynamically significant narrowing in either carotidsystem. Antegrade flow is noted in both vertebral arteries. Impression: Study demonstrates no hemodynamically significant extracranial carotidartery disease bilaterally. Study data: Carotid duplex study. Complete study and Doppler flowstudy including spectral analysis, color and newby scale imaging. Height:188cm. Height: 74in. Weight: 111.1kg. Weight: 244.9lb. BMI: 31.4kg/m^2. BSA: 2.44m^2. Location: Vascular laboratory. Patient status:Outpatient. Study status: Routine. Procedure: A vascular evaluation wasperformed. Image quality was good. Arterial flow: - Right CCA proximal: Right CCA proximal 0.78m/sec 0.12m/sec - Right CCA mid: Right CCA mid 0.65m/sec 0.11m/sec - Right CCA distal: Right CCA distal 0.67m/sec 0.13m/sec - Right ICA proximal: Right ICA proximal 0.62m/sec 0.18m/sec 0.8 1.39 - Right ICA mid: Right ICA mid 0.83m/sec 0.24m/sec 1.06 1.92 - Right ICA distal: Right ICA distal 0.84m/sec 0.18m/sec 1.07 1.42 - Right ECA: Right ECA 0.8m/sec 0.07m/sec - Right vertebral: Right vertebral 0.46m/sec 0.1m/sec - Left CCA proximal: Left CCA proximal 0.82m/sec 0.15m/sec - Left CCA mid: Left CCA mid 0.86m/sec 0.13m/sec - Left CCA distal: Left CCA distal 0.79m/sec 0.13m/sec - Left ICA proximal: Left ICA proximal 0.7m/sec 0.2m/sec 0.81 1.29 - Left ICA mid: Left ICA mid 0.6m/sec 0.16m/sec 0.69 1.04 - Left ICA distal: Left ICA distal 0.6m/sec 0.19m/sec 0.69 1.25 - Left ECA: Left ECA 0.9m/sec 0.13m/sec - Left vertebral: Left vertebral 0.6m/sec 0.11m/sec Prepared and Electronically Authenticated Cornelia Chapa Confirmed 02/04/2025 21:40 Jarrell Martinez [facility] US ORDERABLES Final Resu lt * CARDIAC EVENT MONITOR (02/02/2025 3:00 PM CDT) Narrative [facility] - 02/02/2025 3:00 PM CDT Fany Kraus MD 02/17/2025 12:09 PM Baseline: sinus Symptoms: non specific complain, palpitation, dizziness correlated to sinus 70-190 bpm with frequent PAC and rare PVC Main findings: sinus rhythm without significant AV block, afib/flutter or SVT. No VT. Jarrell DAVISP CARDIAC SERVICES ORDERABLE S Final Result [facility] [id number] [address] [facility] [address] [place] [address], [place] [phone] * UPPER ENDOSCOPY REPORT (01/21/2025 1:34 PM CDT) Narrative Procedure Note Larry Tuttle MD - 01/21/2025 1:34 PM CDT [facility] GI Patient Name: Luis Muñoz Procedure Date: 01/21/2025 Date of : 1955 Admit Type: Outpatient Age: 69 Attending MD: Larry Tuttle , , Procedure: Upper GI endoscopy Indications: Surveillance procedure, Cirrhosis with suspected esophageal varices, Cirrhosis rule out esophageal varices Providers: Larry Tuttle, Key Mares RN, Shemar Grissom RN Referring MD: Floresita Bustillo DO Complications: No immediate complications. Procedure: Pre-Anesthesia Assessment: - [place] Protocol: - Pre-procedure Verification: Prior to the procedure, the patient's identity was verified by full name and date of . The patient's identity was verified on all pertinent medical records, including History and Physical and pre-anesthesia assessment. Also prior to the procedure, a History and Physical was performed, and patient medications, allergies and sensitivities were reviewed. The patient's tolerance of previous anesthesia was reviewed. The patient is competent. The risks and benefits of the procedure and the sedation options and risks were discussed with the patient. All questions were answered and informed consent was obtained. - Marking: The endoscopic procedure was visually marked on a patient wrist band delineating the patient name, proposed procedure and endoscopist's initials. - Time-Out: Prior to the start of the procedure, the patient's identification, proposed procedure, accurate signed consent, correctly labeled images and records, and need for prophylactic antibiotics were verified by the physician and the nurse in the endoscopy suite. - Prior to the procedure, a History and Physical was performed, and patient medications and allergies were reviewed. The patient's tolerance of previous anesthesia was also reviewed. The risks and benefits of the procedure and the sedation options and risks were discussed with the patient. All questions were answered, and informed consent was obtained. Prior Anticoagulants: The patient has taken no anticoagulant or antiplatelet agents. ASA Grade Assessment: II - A patient with mild systemic disease. After reviewing the risks and benefits, the patient was deemed in satisfactory condition to undergo the procedure. After obtaining informed consent, the endoscope was passed under direct vision. Throughout the procedure, the patient's blood pressure, pulse, and oxygen saturations were monitored continuously. The Endoscope was introduced through the mouth, and advanced to the second part of duodenum. The upper GI endoscopy was accomplished without difficulty. The patient tolerated the procedure well. Estimated Blood Loss: Estimated blood loss was minimal. Findings: The examined esophagus was normal. No evidence of any esophageal or gastric varices. Severe, diffuse portal hypertensive gastropathy was found in the stomach. 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 Coagulation for hemostasis using argon plasma at 1 liter/minute and 40 harden was successful. The examined duodenum was normal. Impression: - Normal esophagus. No evidence of any esophageal or gastric varices. - Portal hypertensive gastropathy. - Gastric antral vascular ectasia. Treated with argon plasma coagulation (APC). - Normal examined duodenum. - No specimens collected. Recommendation: - Repeat upper endoscopy in 2 years for retreatment. - Continue present medications. - Continue oral iron supplementation - Patient has a contact number available for emergencies. The signs and symptoms of potential delayed complications were discussed with the patient. Return to normal activities tomorrow. Written discharge instructions were provided to the patient. - Return to GI office as previously scheduled. - The findings and recommendations were discussed with the patient's family. Larry Tuttle, 01/21/2025 1:33:57 PM Number of Addenda: 0 Note Initiated On: 01/21/2025 1:06 PM Scope Withdrawal Time Scope In: Scope Out: [address] [place], [place] us Larry Tuttle MD GI PROCEDURE ORDERABL ES Final Result * CT HEAD WO CONTRAST (01/14/2025 3:28 PM CDT) Anatomical Region Laterality Modality Head Computed Tomogra phy 01/14/2025 3:10 PM CDT Impressions 01/14/2025 3:46 PM CDT IMPRESSION: No evidence of an acute intracranial process. Narrative 01/14/2025 3:46 PM CDT EXAM: CT HEAD WO CONTRAST DATE/TIME OF EXAM: 01/14/2025 3:28 PM REASON FOR STUDY: Neuro deficit, acute, stroke suspected DIAGNOSIS: History of falling; Abrasion of left forearm, initial encounter; Imbalance COMPARISON: None Available TECHNIQUE: CT head performed without contrast. FINDINGS: No evidence of an acute territorial infarct, parenchymal hemorrhage, hydrocephalus or abnormal extra-axial fluid collection. No midline shift. Basilar cisterns remain patent. No mastoid effusion. Mucosal thickening left sphenoid sinus. No paranasal sinus fluid level. No calvarial fracture. No sizable scalp hematoma. Procedure Note Deana Macario MD - 01/14/2025 EXAM: CT HEAD WO CONTRAST DATE/TIME OF EXAM: 01/14/2025 3:28 PM REASON FOR STUDY: Neuro deficit, acute, stroke suspected DIAGNOSIS: History of falling; Abrasion of left forearm, initial encounter; Imbalance COMPARISON: None Available TECHNIQUE: CT head performed without contrast. FINDINGS: No evidence of an acute territorial infarct, parenchymal hemorrhage, hydrocephalus or abnormal extra-axial fluid collection. No midline shift. Basilar cisterns remain patent. No mastoid effusion. Mucosal thickening left sphenoid sinus. No paranasal sinus fluid level. No calvarial fracture. No sizable scalp hematoma. IMPRESSION: No evidence of an acute intracranial process. Ian Rivas DO CT ORDERABLES Final Result * XR CHEST PA AND LATERAL 2 VW (01/14/2025 3:28 PM CDT) Anatomical Region Laterality Modality Chest Computed Radiogr aphy 01/14/2025 3:28 PM CDT Impressions 01/14/2025 4:00 PM CDT Impression: No evidence of infiltrates. Narrative 01/14/2025 4:00 PM CDT Exam: XR CHEST PA AND LATERAL 2 VW Date/Time of Exam: 01/14/2025 3:28 PM Reason For Exam: Altered Mental Status Diagnosis: History of falling; Abrasion of left forearm, initial encounter; Imbalance The heart size is normal. The lungs are clear. The costophrenic angles are sharp. No pneumothorax is seen. Procedure Note Danny Trinh MD - 01/14/2025 Exam: XR CHEST PA AND LATERAL 2 VW Date/Time of Exam: 01/14/2025 3:28 PM Reason For Exam: Altered Mental Status Diagnosis: History of falling; Abrasion of left forearm, initial encounter; Imbalance The heart size is normal. The lungs are clear. The costophrenic angles are sharp. No pneumothorax is seen. Impression: No evidence of infiltrates. Ian Rivas DO DIAGNOSTIC IMAGING ORDERABLES Final Result * (ABNORMAL) LACTIC ACID (01/14/2025 2:00 PM CDT) LACTIC ACID 2.2(H) <=2.0 mmol/L 01/14/2025 2:27 PM CDT [facility] Blood BLOOD SPECIMEN / Unknown Collection / Unknown 01/14/2025 2:00 PM CDT 01/14/2025 2:08 PM CDT Ian Rivas DO CHEMISTRY ORDERABLES Final Re sult [facility] CLIA # [id number] [address] [place] [address] * SEDIMENTATION RATE (01/14/2025 2:00 PM CDT) ESR (SEDIMENTATION RATE) 5 0 - 20 mm/Hr 01/14/2025 2:18 PM CDT [facility] Blood Collection / Unknown 01/14/2025 2:00 PM CDT 01/14/2025 2:08 PM CDT Narrative [facility] - 01/14/2025 2:18 PM CDT Tube Lot: #[id number] Exp Date: 07/14/2026 SR 0125-1 EXP. 01/16/25 SR 0125-2 EXP. 01/16/25 Ian Rivas DO HEMATOLOGY ORDERABLES Final R esult [facility] CLIA # [id number] [address] [place] [address] * (ABNORMAL) D-DIMER (01/14/2025 2:00 PM CDT) Pathologist [facility] D-DIMER QUANT 1.26(H) <0.50 ug/mL FEU 01/14/2025 2:27 PM CDT [facility] Blood Collection / Unknown 01/14/2025 2:00 PM CDT 01/14/2025 2:08 PM CDT Narrative [facility] - 01/14/2025 2:27 PM CDT D-Dimer assay cutoff value for exclusion of DVT and/or PE is <0.50 ug/mL FEU. As D-Dimer levels increase naturally with age, age stratification for patients over 50 is potentially more appropriate in determining whether a patient should undergo further evaluation for DVT and/or PE than a general cutoff of 0.50 ug/mL FEU. Clinical consideration is recommended. Age Stratified Cutoff Values: 50-60 years: 0.50-0.60 ug/mL FEU 61-70 years: 0.61-0.70 ug/mL FEU 71-80 years: 0.71-0.80 ug/mL FEU Ian Riavs DO HEMATOLOGY ORDERABLES Final R esult [id number] [address] [place] [address] * C-REACTIVE PROTEIN (01/14/2025 2:00 PM CDT) [facility] CRP <3.0 <5.0 mg/L 01/14/2025 2:3 1 PM CDT [facility] Blood Collection / Unknown 01/14/2025 2:00 PM CDT 01/14/2025 2:08 PM CDT Ian Rivas DO CHEMISTRY ORDERABLES Final Re sult Performing Organization Address [facility]/ZIP Co de Phone Number [facility] CLIA # [id number] [address] [place] [address] * TSH (01/14/2025 2:00 PM CDT) TSH 1.73 0.27 - 4.20 uIU/mL 01/14/2025 2:33 PM CDT [facility] Blood Collection / Unknown 01/14/2025 2:00 PM CDT 01/14/2025 2:08 PM CDT Ian Rivas DO CHEMISTRY ORDERABLES Final Re sult Performing Organization Address [facility] Co de Phone Number [facility] CLIA # [id number] [address] [place] [address] * MAGNESIUM LEVEL (01/14/2025 2:00 PM CDT) MAGNESIUM 2.0 1.6 - 2.4 mg/dL 01/14/2025 2:31 PM CDT [facility] Blood Collection / Unknown 01/14/2025 2:00 PM CDT 01/14/2025 2:08 PM CDT us Ian Rivas DO CHEMISTRY ORDERABLES Final Re sult Performing Organization Address City/[facility]/ZIP Co de Phone Number [facility] CLIA # [id number] [address] [place] [address] * ETHANOL LEVEL (01/14/2025 2:00 PM CDT) ETHANOL <10.10 <10.10 mg/dL 01/14/2025 2:31 PM CDT [facility] ETHANOL % <0.01 %w/v 01/14/2025 2:31 PM CDT [facility] Blood Collection / Unknown 01/14/2025 2:00 PM CDT 01/14/2025 2:08 PM CDT Ian Rob FERRELL CHEMISTRY ORDERABLES Final Re sult Performing Organization Address [facility]/ZIP Co de Phone Number [facility] CLIA # [id number] [address] [place] [address] * ACETAMINOPHEN LEVEL (01/14/2025 2:00 PM CDT) ACETAMINOPHEN LEVEL <5 0 - 30 ug/mL 01/14/2025 2:31 PM CDT [facility] Blood Collection / Unknown 01/14/2025 2:00 PM CDT 01/14/2025 2:08 PM CDT [facility] - 01/14/2025 2:31 PM CDT Therapeutic Range: 10-30 ug/mL The following Acetaminophen levels are associated with possible toxicity: 4 hours after dose >200 ug/mL 8 hours after dose >100 ug/mL 12 hours after dose >50 ug/mL Ian Rob FERRELL CHEMISTRY ORDERABLES Final Re sult Performing Organization Address [facility] Co de Phone Number [facility] CLIA # [id number] [address] [place] [address] * SALICYLATE LEVEL (01/14/2025 2:00 PM CDT) SALICYLATE LEVEL <0.5 0.0 - 20.0 mg/dL 01/14/2025 2:31 PM CDT [facility] Blood Collection / Unknown 01/14/2025 2:00 PM CDT 01/14/2025 2:08 PM CDT [facility] - 01/14/2025 2:31 PM CDT Negative <3.0 mg/dL Therapeutic 3.0 - 10 mg/dL Toxicity >30 mg/dl Lethal >60 mg/dL Ianmiroslava Rivas DO CHEMISTRY ORDERABLES Final Re sult Performing Organization Address City/[facility]/ZIP Co de Phone Number [facility] CLIA # [id number] [address] [place] [address] * URINALYSIS WITH REFLEX MICROSCOPIC (01/12/2025 10:24 PM CDT) COLOR UA Yellow Pale to Dark Yellow 01/12/2025 10:42 PM CDT [facility] CLARITY UA Clear Clear 01/12/2025 10:42 PM CDT [facility] SPECIFIC GRAVITY UA 1.015 1.003 - 1.035 01/12/2025 10:42 PM CDT [facility] PH UA 7.0 5.0 - 8.0 01/12/2025 10:42 PM CDT [facility] LEUKOCYTE ESTERASE UA Negative Negative 01/12/2025 10:42 PM CDT [facility] NITRITE UA Negative Negative 01/12/2025 10:42 PM CDT [facility] PROTEIN UA Negative Negative 01/12/2025 10:42 PM CDT [facility] GLUCOSE UA Negative Negative 01/12/2025 10:42 PM CDT [facility] KETONES UA Negative Negative 01/12/2025 10:42 PM CDT [facility] UROBILINOGEN UA 1.0 <2.0 mg/dL 10:42 PM CDT [facility] BILIRUBIN UA Negative Negative 01/12/2025 10:42 PM CDT [facility] BLOOD UA Negative Negative 01/12/2025 10:42 PM CDT [facility] Urine URINE SPECIMEN OBTAINED BY CLEAN CATCH PROCEDURE / Unknown Collection / Unknown 01/12/2025 10:24 PM CDT 01/12/2025 10:39 PM CDT us Jaime Corea MD URINE ORDERABLES Final R esult [facility] CLIA # [id number] [address] [place] [address] * MANUAL DIFFERENTIAL (01/12/2025 9:11 PM CDT) Pathologist [facility] PLATELET EST. Consistent w Count 01/12/2025 9:44 PM CDT [facility] HYPOCHROMIA 1+ /hpf 01/12/2025 9:44 PM CDT [facility] Blood Collection / Unknown 01/12/2025 9:11 PM CDT 01/12/2025 9:34 PM CDT Jaime Corea MD HEMATOLOGY ORDERABLES CO M Final Result [facility] CLIA # [id number] [address] [place] [address] * ALPHA FETOPROTEIN TUMOR MARKER (12/18/2024 9:44 AM CDT) [facility] ALPHA FETOPROTEIN TUMOR MARKER 4.1 <6.1 ng/mL [facility] Comment: This test was performed using the Gail [place] chemiluminescent method. Values obtained from different assay methods cannot be used interchangeably. AFP levels, regardless of value, should not be interpreted as absolute evidence of the presence or absence of disease. Test Performed at: [facility] [address] Gregory Beauchamp Blood 12/18/2024 9:44 AM CDT 12/19/2024 3:06 AM CDT us Floresita Bustillo DO CHEMISTRY ORDERABLES Final Result [facility] [phone] [facility] [address] [place] [address] * PTT (12/18/2024 9:44 AM CDT) [facility] PTT 28 23 - 32 sec [facility] Comment: This test has not been validated for monitoring unfractionated heparin therapy. For testing that is validated for this type of therapy, please refer to the Heparin Anti-Xa assay (test code 98833). For additional information, please refer to http://education.eBIZ.mobility/faq/LII877 (This link is being provided for informational/educational purposes only.) Test Performed at: [facility] [address] [place] [address] Adam Condon MD Blood 12/18/2024 9:44 AM CDT 12/19/2024 3:06 AM CDT [facility] Laz RushKeny HEMATOLOGY ORDERABLES Final Result Performing Organization Address [facility]/ZIP Co de Phone Number [facility] [phone] [place] [address] * (ABNORMAL) VITAMIN B12 LEVEL (12/18/2024 9:44 AM CDT) Pathologist [facility] VITAMIN B12 1412(H) 200 - 1100 pg/mL [facility] Comment: Test Performed at: [employer] [place] [address] Adam Condon MD Blood 12/18/2024 9:44 AM CDT 12/19/2024 3:06 AM CDT Floresita Bustillo DO CHEMISTRY ORDERABLES Final Result Performing Organization Address City/[facility]/ZIP Co de Phone Number [facility] [phone] [facility] [address] [place] [address] * HEMOGLOBIN A1C (11/04/2024 10:20 AM CDT) Pathologist [facility] HEMOGLOBIN A1C 5.6 <5.7 % [facility] Comment: For the purpose of screening for the presence of diabetes: <5.7% Consistent with the absence of diabetes 5.7-6.4% Consistent with increased risk for diabetes (prediabetes) > or =6.5% Consistent with diabetes This assay result is consistent with a decreased risk of diabetes. Currently, no consensus exists regarding use of hemoglobin A1c for diagnosis of diabetes in children. According to [place] Diabetes Association (ADA) guidelines, hemoglobin A1c <7.0% represents optimal control in non- diabetic patients. Different metrics may apply to specific patient populations. Standards of Medical Care in Diabetes(ADA). ESTIMATED AVERAGE GLUCOSE (MG/DL) 114 mg/dL [facility] ESTIMATED AVERAGE GLUCOSE (MMOL/L) 6.3 mmol/L [facility] Comment: FASTING:UNKNOWN FASTING: UNKNOWN Test Performed at: [facility] [address] [place] [address] Adam Condon MD Blood 11/04/2024 10:2 0 AM CDT 11/04/2024 10:20 AM CDT us Floresita Bustillo DO CHEMISTRY ORDERABLES Final Result [facility] [phone] [facility] [address] [place] [address] * LIPID PANEL (11/04/2024 10:20 AM CDT) CHOLESTEROL 154 <200 mg/dL [facility] HDL 63 > OR = 40 mg/dL [facility] TRIGLYCERIDE 78 <150 mg/dL [facility] LDL CALCULATED 75 mg/dL (calc) [facility] Comment: Reference range: <100 Desirable range <100 mg/dL for primary prevention; <70 mg/dL for patients with CHD or diabetic patients with > or = 2 CHD risk factors. LDL-C is now calculated using the Keshav calculation, which is a validated novel method providing better accuracy than the Friedewald equation in the estimation of LDL-C. Yoan CLAUDIO et al. MARGARITO. 2013;310(19): 5180-6064 (http://education.eBIZ.mobility/faq/TBN011) CHOL/HDL RATIO 2.4 <5.0 (calc) [facility] NON-HDL CHOLESTEROL 91 <130 mg/dL (calc) [facility] Comment: For patients with diabetes plus 1 major ASCVD risk factor, treating to a non-HDL-C goal of <100 mg/dL (LDL-C of <70 mg/dL) is considered a therapeutic option. Test Performed at: [facility] [address] [facility] [place] [address] Adam Condon MD Blood 11/04/2024 10:2 0 AM CDT 11/04/2024 10:20 AM CDT us Floresita Rushehan DO CHEMISTRY ORDERABLES Final Result Performing Organization Address [facility] Co de Phone Number [facility] [phone] [facility] [address] [place] [address] [place] [address] * MICROALBUMIN/CREATININE RATIO, RANDOM UR (09/09/2024 3:08 PM SUPERVISOR SHIPPING ROOM) Creatinine, Urine 22 20 - 320 mg/dL [facility] MICROALBUMIN, URINE 0.2 See Note: mg/dL [facility] Comment: Reference Range: Reference Range Not established MICROALBUMIN/CREAT RATIO, UR 9 <30 mg/g creat [facility] Comment: The ADA defines abnormalities in albumin excretion as follows: Albuminuria Category Result (mg/g creatinine) Normal to Mildly increased <30 Moderately increased 30-299 Severely increased > OR = 300 The ADA recommends that at least two of three specimens collected within a 3-6 month period be abnormal before considering a patient to be within a diagnostic category. Test Performed at: [facility] [address] [place] [address] Adam Condon MD Urine URINE SPECIMEN OBTAINED BY CLEAN CATCH PROCEDURE / Unknown 09/09/2024 3:08 PM [employer]PER[employer] RO[employer] 09/10/2024 5:35 AM [employer]PER[employer] RO[employer] us Floresita Rushehan DO URINE ORDERABLES Final Resu lt Performing Organization Address City/[facility]/ZIP Co de Phone Number [facility] [phone] [facility] [address] [address] * HM DIABETES EYE EXAM (04/30/2024 4:10 PM CDT) us Abstract Provider HEALTH MAINTENANCE Edited Resu lt - Final * ENDOSCOPY, COLON, DIAGNOSTIC (01/10/2023 12:21 PM CDT) us Abstract Provider GI PROCEDURE ORDERABLES Final Result * (ABNORMAL) POC OCCULT BLOOD UP TO 3 CARDS (12/21/2020 8:43 AM CDT) OCCULT BLOOD 1 CARD POC Positive(A) Negative [facility] OCCULT BLOOD 2 CARD POC Negative Negative [facility] OCCULT BLOOD 3 CARD POC Invalid Result(A) Negative [facility] INTERNAL KIT QC Pass Pass [facility] CARD LOT NUMBER POC 50,581 [facility] CARD EXPIRATION DATE POC 70,121 [facility] DEVELOPER LOT NUMBER POC [id number] [facility] DEVELOPER EXPIRATION DATE POC 110,121 [facility] Stool STOOL SPECIMEN / Unknown 12/21/2020 8:43 AM CDT Floresita Bustillo DO POINT OF CARE TESTING Final Result [facility] CLIA# [id number] [address] [place] [address] * US ABDOMEN COMPLETE (07/22/2019 9:51 AM [employer]PERVISOR SHIP[employer] ROOM) Anatomical Region Laterality Modality Abdomen Other Impressions 07/23/2019 8:09 AM [employer] 1. The diffusely coarsened echotexture of the liver is a nonspecific finding. Considerations include hepatitis, fibrosis, diffuse hepatic steatosis, or other infiltrative processes. 2. Splenomegaly. Narrative 07/23/2019 8:09 AM [employer]PER[employer]OR [employer] ROOM EXAM: US ABDOMEN COMPLETE, DIAGNOSIS/REASON FOR EXAM: Hepatic cirrhosis, unspecified hepatic cirrhosis type, unspecified whether ascites present; Abdominal pain, acute, right upper quadrant. DATE AND TIME OF EXAM: 07/22/2019, 9:51 AM. COMPARISON: None. TECHNIQUE: Multiplanar real-time ultrasonography of the abdomen using newby-scale imaging, supplemented by color and spectral Doppler as needed. FINDINGS: * Liver: The liver is normal in size. Its parenchyma is diffusely coarsened in echotexture. Portal venous flow is hepatopedal. * Gallbladder: The gallbladder appears contracted. No gall stones, gallbladder wall thickening or pericholecystic fluid collections are seen. No sonographic Wu's sign was elicited. * Biliary: No intrahepatic or extrahepatic biliary dilatation. The common bile duct measures 3 mm in diameter. * Spleen: The spleen is normal in size, contour, and echotexture and without focal lesions. The maximum diameter of the spleen measures 13.8 cm. * Pancreas: The pancreas is largely obscured by bowel gas. * Right kidney: The right kidney measures 11.2 cm in length. Its parenchyma is normal in echotexture. No right renal masses or renal calculi are identified. There is no right hydronephrosis. * Left kidney: The left kidney measures 12.5 cm in length. Its parenchyma is normal in echotexture. No left renal masses or renal calculi are identified. There is no left hydronephrosis. * Peritoneum: No ascites. * Imaged Aorta/IVC: The aorta and inferior vena cava are not well visualized. Procedure Note Feliz Berry MD - 12/02/2020 EXAM: US ABDOMEN COMPLETE, DIAGNOSIS/REASON FOR EXAM: Hepatic cirrhosis, unspecified hepatic cirrhosis type, unspecified whether ascites present; Abdominal pain, acute, right upper quadrant. DATE AND TIME OF EXAM: 07/22/2019, 9:51 AM. COMPARISON: None. TECHNIQUE: Multiplanar real-time ultrasonography of the abdomen using newby-scale imaging, supplemented by color and spectral Doppler as needed. FINDINGS: * Liver: The liver is normal in size. Its parenchyma is diffusely coarsened in echotexture. Portal venous flow is hepatopedal. * Gallbladder: The gallbladder appears contracted. No gall stones, gallbladder wall thickening or pericholecystic fluid collections are seen. No sonographic Wu's sign was elicited. * Biliary: No intrahepatic or extrahepatic biliary dilatation. The common bile duct measures 3 mm in diameter. * Spleen: The spleen is normal in size, contour, and echotexture and without focal lesions. The maximum diameter of the spleen measures 13.8 cm. * Pancreas: The pancreas is largely obscured by bowel gas. * Right kidney: The right kidney measures 11.2 cm in length. Its parenchyma is normal in echotexture. No right renal masses or renal calculi are identified. There is no right hydronephrosis. * Left kidney: The left kidney measures 12.5 cm in length. Its parenchyma is normal in echotexture. No left renal masses or renal calculi are identified. There is no left hydronephrosis. * Peritoneum: No ascites. * Imaged Aorta/IVC: The aorta and inferior vena cava are not well visualized. IMPRESSION 1. The diffusely coarsened echotexture of the liver is a nonspecific finding. Considerations include hepatitis, fibrosis, diffuse hepatic steatosis, or other infiltrative processes. 2. Splenomegaly. Ro Slade [facility] ORDERABLES Final Result from Last 3 Months or Most Recently Relevant to Health Maintenance Insurance MEDICARE PART A AND B [facility] Advance Directives For more information, please contact: [phone] * Full Code (Latest Code Status on File) Date Activated Date Inactivated Comments 01/21/2025 12:27 PM 01/21/2025 4:14 PM * Full Code Date Activated Date Inactivated Comments 10/27/2021 9:57 AM 11/01/2021 7:39 PM Care Teams Rubber Compounder Formulator Relationship Specialty Start Date End Date Floresita Bustillo DO [address] [place] [address] PCP - General 01/24/09
--- OUTSIDE RECORDS SUMMARY | 2025-03-01 06:33 | XMS_ITS | Encounter Summary ---
Author Organization [facility] Address [address] [place] [address] Care Team Providers Care Business Developer Name Role Phone Floresita Bustillo DO Primary Care Provider Encounter Details Date Type Department Care Team (Latest Contact Info) Description 08/16/2003 Outpatient Historical [facility] [address] [phone] Aj Senior MD [address] [place] [phone] ACTINIC KERATOSIS (Primary Dx); JOINT PAIN-SHLDER Social History Tobacco Use Types Packs/Day Years Used Date Smoking Tobacco: Never Assessed Sex and Gender Information Value Date Recorded Sex Assigned at Not on file Legal Sex Male 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
--- OUTSIDE RECORDS SUMMARY | 2025-03-01 06:33 | XMS_ITS | Encounter Summary ---
Author Organization [facility] Address [address] [place] [address] Care Team Providers Care Line Service Attendant Name Role Phone Floresita Bustillo Primary Care Provider Reason for Visit * Reason Onset Date Comments Medication Refill 06/11/2011 Encounter Details Date Type Department Care Team (Late st Contact Info) Description 06/11/2011 Refill [facility] [address] [place] [address] Mychart, Generic Provider Social History Tobacco Use Types Packs/Day Years Used Date Smoking Tobacco: Former Cigarettes 0.5 20 0 12/13/1977 - 12/13/1997 Smokeless Tobacco: Former Chew Comments:quit approximately 30 years ago Alcohol Use Standard Drinks/Week Comments Yes 5.8 (1 standard drink = 0.6 oz p ure alcohol) Sex and Gender Information Value Date Recorded Sex Assigned at Not on file Legal Sex Male 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 Gender Identity Not on file Sexual Orientation Not on file 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 Not on file Not on file Not on file documented as of this encounter Miscellaneous Notes * Telephone Encounter - Mora Wise LPN - 06/12/2011 8:25 AM CSTFrom: LUIS RODRIGUEZ Sent: SatJun 11, 2011 4:20 PM Subject: Medication Renewal Request Luis Rodriguez would like a refill of the following medications: Preferred pharmacy: E* [facility] [address] [place] [address] Comment: viagra Other - see comments for explanation OUT TENDER LACE documented in this encounter Plan of Treatment Not on file documented as of this encounter Visit Diagnoses Not on filedocumented in this encounter Care Teams Line Service Attendant Relationship Specialty Start Date End Date Floresita Bustillo DO [address] [place] [address] PCP - General 01/24/09 documented as of this encounter
--- OUTSIDE RECORDS SUMMARY | 2025-03-01 06:33 | XMS_ITS | Patient Health Record ---
Author Organization [facility] Address [address] [place] [address] Care Team Providers Care Bottom Painter Name Role Phone Dagoberto Jacobs Unavailable Allergies Allergen (clinical drug ingredient) Drug/Non Drug Allergy documented on EMR Reaction Allergy Type Onset Date Status Substance with sulfonamide structure and antibacterial mechanism of action (substance) Sulfa Antibiotics Unknown Drug Allergy Active Reason For Referral Reason GI BLEED Diagnosis 1 Gastrointestinal hem orrhage, unspecified gastrointestinal hemorrhage type (K92.2) Referring Provider Last Name Homar Jain [facility] Referring Provider Speciality Oncology Referred Organization [facility] Referred Provider Dagoberto Jacobs Referred Address [address] [place] [phone], Referred Provider Specialty Internal Med icine Referral Priority Routine Medications Medication SIG (Take, Route, Frequency, Duration) Notes Start Date End Date Status Midodrine HCl 5 MG Tablet 1 tablet Orall y THREE TIMES A DAY Active rifAXIMin 550 MG Tablet 1 tablet Orally Twice a day Active Ferrous Sulfate 325 (65 Fe) MG Tablet 1 tablet Orally TWICE DAILY Active Spironolactone 100 MG Tablet 1 tablet Orally Once a day Active Furosemide 40 MG Tablet 1 tablet Orally Once a day Active Pantoprazole Sodium 40 MG Tablet Delayed Release I TABLET Orally TWICE A DAY Active Promethazine HCl 25 MG Tablet 1 tablet as needed Orally every 12 hrs Active Betamethasone Dipropionate 0.05 % Cream 1 application Externally TWICE DAILY Active Ondansetron 8 MG Tablet Disintegrating 1 tablet on the tongue and allow to dissolve as needed Orally Once a day; Duration: 30 day(s) 05/18/2024 Active Basaglar KwikPen 100 UNIT/ML Solution Pen-injector 18 units at beftime Subcutaneous once a day Active FreeStyle Xena 14 Day Sensor - Miscellaneous as directed Activ e LORazepam 0.5 MG Tablet 1 tab every six hours prn nausea and vomiting Orally ut dictum; Duration: 30 days 05/18/2024 Active Zinc 100 MG Tablet 1 tablet Orally Once a day Active Lactulose 10 GM/15ML Solution 15 mL as needed Orally Once a day Active Sucralfate 1 GM Tablet 1 tablet on an em pty stomach Orally THREE TIMES A DAY Active Fluticasone Propionate 50 MCG/ACT Suspension 1 spray in each nostril Nasally Once a day Active NovoLOG FlexPen 100 UNIT/ML Solution Pen-injector as directed Subcutaneous Sliding scale Active Folic Acid 1 MG Tablet 1 tablet Orally O nce a day Active Levothyroxine Sodium 25 MCG Tablet 1 tablet in the morning on an empty stomach Orally Once a day Active Lidocaine 4 % Patch 1 patch as needed Externally Once a day Active Social History Tobacco Use: Social History Observation Description Date Details (start date - stop date) Former Smoker NA - NA Social History Depression Screening Social Info Question Answer Notes depression screening findings Findings Negative (0-4) Completed PHQ-9 Little interest or pleasure in doing things Not at all Feeling down, depressed, or hopeless Not at all Trouble falling or staying asleep, or sleeping t oo much Not at all Feeling tired or having little energy Not at all Poor appetite or overeating Not at all Feeling bad about yourself, or that you are a failure, or have let yourself or your family down Not at all Trouble concentrating on thi ngs, such as reading the newspaper or watching television Not at all Moving or speaking so slowly that other people could have noticed. Or the opposite ? being so fidgety or restless that you have been moving around a lot more than usual Not at all Thoughts that you would be b uzair off , or of hurting yourself in some way Not at all Total Score 0 Drugs/Alcohol: Social Info Question Answer Notes Drugs Have you used drugs other than those for medical reasons in the past 12 months? No Drug/Alcohol: Social Info Question Answer Notes AUDIT-C (Standard) Did you have a drink containing alcohol in the past year? No Points 0 Interpretation Negative Tobacco Use: Social Info Question Answer Notes Tobacco Control (Standard) Tobacco use: Former smoker How long has it been since you last smoked? Greater than 10 years Problems Problem Type SNOMED Code ICD Code Onset Dates Problem Status W/U Status Risk Notes Problem Symptomatic cholelithiasis (K80.20) Active confirmed Vital Signs Heart Rate 80 /min 05/18/2024 Temperature 99.2 degrees Fahrenheit 05/18/2024 Height-cm 187.96 cm 05/18/2024 Oximetry 96 % 05/18/2024 Blood pressure diastolic 68 mm Hg 05/18/2024 Weight-kg 109.41 kg 05/18/2024 Height 74 in 05/18/2024 Blood pressure systolic 130 mm Hg 05/18/2024 Weight 241.2 lbs 05/18/2024 BMI 30.96 kg/m2 05/18/2024 Encounters Encounter Location Date Provider Diagnosis [facility] [address] [place] [phone] 05/18/2024 Dagoberto Jacobs Symptomatic cholelithiasis K80.20 and Depression screen Z13.31 Assessments Encounter Date Diagnosis (ICD Code) Assessment Notes Treatment Notes Treatment Clinical Notes Section Notes 05/18/2024 Symptomatic cholelithiasis (ICD-10 - K80.20) I recommend that he have his GB out by his Dr[place] 05/18/2024 Depression screen (ICD-10 - Z13.31) Plan Of Treatment No Information Insurance Providers Payer Name Payer Address Payer Phone Subscriber Number Group Number Insured Name Patient Relationship to Insured Coverage Start Date Coverage End Date [place] [address] [address] [place] [phone] [id number] LANDON RODRIGUEZ Self - patient is the insured [employer] [address] [facility] [place] [place] [phone] [id number] LANDON RODRIGUEZ Self - patient is the insured Medical (General) History Medical History History ICD Code type II diabetes cirrhosis end stage anemia Surgical History Surgery Date(Month/Year) appendectomy umbilical hernia repair 2020 Tips procedure 01/12/2022 EGD x 15-20 last 2 with RFA left knee arthroscopy right knee arthroscopy
--- OUTSIDE RECORDS SUMMARY | 2025-03-01 06:33 | XMS_ITS | Encounter Summary ---
Author Organization [facility] Address [address] [place] [address] Care Team Providers Care Drosophere Operator Name Role Phone Floresita Bustillo DO Primary Care Provider Reason for Visit * Reason Onset Date Comments scheduling 06/15/2021 Encounter Details Date Type Department Care Team (Late st Contact Info) Description 06/15/2021 Telephone [facility] Contact Center Clinics [address] [place] [address] [place] [phone] Floresita Bustillo DO [address] [place] [address] scheduling Social History Tobacco Use Types Packs/Day Years Used Date Smoking Tobacco: Former Cigarettes Q uit: 12/13/1997 Smokeless Tobacco: Former Comments:Quit smoking: quit approximately 30 years ago Alcohol Use Standard Drinks/Week Comments Yes 5.8 (1 standard drink = 0.6 oz p ure alcohol) Sex and Gender Information Value Date Recorded Sex Assigned at Not on file Legal Sex Male 2:11 PM SALES STRATEGY MANAGER Gender Identity Not on file Sexual Orientation Not on file COVID-19 Exposure Response Date Recorded In the last month, have you been in contact with someone who was confirmed or suspected to have Coronavirus / COVID-19? Unable to assess 06/13/2021 5:46 PM SALES STRATEGY MANAGER documented as of this encounter Miscellaneous Notes * Telephone Encounter - Justyna Cifuentes LPN - 06/15/2021 5:07 PM SALES STRATEGY MANAGER Attempted to call pt's but did not get an answer and VM is not set up. Justyna Cifuentes LPN, 06/15/2021 5:08 PM S STRATEGY MANAGER * Telephone Encounter - Eyal Bishop - 06/15/2021 4:21 PM CST Patient (marcela) is calling in about an appointment for 06/16/2021 at 1140am and would like to rescheudle due to patient being hospitalized again yesterday and sister still in hospital might be out tomorrow but wants to rescheudle with Dr. Bustillo but all i got was for the end of . Patient would like to send message to Dr. Bustillo since she has been following patient for his health conditions. Patient max would like a call back. call back# [phone] S STRATEGY MANAGER documented in this encounter Plan of Treatment Upcoming Encounters Date Type Department Care Team (Late st Contact Info) Description 05/03/2025 11:30 AM CDT Office Visit [facility] G[facility]- [place] [address] [place] [phone] Elina Enrique PA-C [address] [place] [phone] 05/27/2025 3:40 PM SALES STRATEGY MANAGER Office Visit [facility] [place] [address] [place] [address] Floresita Bustillo DO [address] [place] [address] documented as of this encounter Visit Diagnoses Not on filedocumented in this encounter Care Teams Drosophere Operator Relationship Specialty Start Date End Date Floresita Bustillo DO [address] [place] [address] PCP - General 01/24/09 documented as of this encounter
--- OUTSIDE RECORDS SUMMARY | 2025-03-01 06:33 | XMS_ITS | Encounter Summary ---
Author Organization [facility] Address [address] [place] [address] Care Team Providers Care Pad Tufter Name Role Phone Floresita Bustillo Primary Care Provider Encounter Details Date Type Department Care Team (Latest Contact Info) Description 02/19/2025 Results Follow-Up [facility] Family Medicine [place] [address] [place] [address] Jarrell Martinez, [facility] [address] [place] [address] CBC WITH DIFFERENTIAL, COMPREHENSIVE METABOLIC PANEL, IRON, TIBC, AND PERCENT SATURATION, AMMONIA LEVEL Social History Tobacco Use Types Packs/Day Years [...] on file Legal Sex Male 2:11 PM 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 TEACHER Gender Identity Not on file Sexual Orientation Not on file documented as of this encounter Plan of Treatment Upcoming Encounters Date Type Department Care Team (Late st Contact Info) Description 05/03/2025 11:30 AM CDT Office Visit [facility] Gastroenter[address] [place] [address] Elina Enrique PA-C [address] [phone] 05/27/2025 3:40 PM 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 TEACHER Office Visit [facility] [address] [place] [address] Floresita Bustillo DO [address] [place] [address] documented as of this encounter Visit Diagnoses Not on filedocumented in this encounter Care Teams Pad Tufter Relationship Specialty Start Date End Date Floresita Bustillo DO [address] [place] [address] PCP - General 01/24/09 documented as of this encounter
--- OUTSIDE RECORDS SUMMARY | 2025-03-01 06:33 | XMS_ITS | Encounter Summary ---
Author Organization [facility] Address [address] [place] [address] Care Team Providers Care Osteopathic Medicine Teacher Name Role Phone Flroesita Bustillo DO Primary Care Provider Encounter Details Date Type Department Care Team (Latest Contact Info) Description 09/19/2005 Outpatient Historical [facility] Medicine [address] [phone] Aj Senior MD [address] [place] [phone] Nonsuppurative Otitis Media, not Specified as Acute or Chronic (Primary Dx); Esophageal Reflux; Abnormal Weight Gain Social History Tobacco Use Types Packs/Day Years Used Date Smoking Tobacco: Never Assessed Sex and Gender Information Value Date Recorded Sex Assigned at Not on file 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
--- OUTSIDE RECORDS SUMMARY | 2025-03-01 06:33 | XMS_ITS | Encounter Summary ---
Author Organization [facility] Address [address] [place] [address] Care Team Providers Care Geriatric Psychiatrist Name Role Phone Floresita Bustillo DO Primary Care Provider Encounter Details Date Type Department Care Team (Late st Contact Info) Description 11/15/2020 Ancillary Orders [facility] Medicine [place] [address] [place] [address] Floresita Bustillo DO [address] [place] [address] Chronic pain of both shoulders Social History Tobacco Use Types Packs/Day Years Used Date Smoking Tobacco: Former Cigarettes 0.5 20 0 12/13/1977 - 12/13/1997 Smokeless Tobacco: Former Chew Comments:quit approximately 30 years ago Alcohol Use Standard Drinks/Week Comments Yes 5.8 (1 standard drink = 0.6 oz p ure alcohol) Sex and Gender Information Value Date Recorded Sex Assigned at Not on file Legal Sex Male 4:48 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 No / Unsure 11/15/2020 12:41 PM CDT documented as of this encounter Plan of Treatment Not on file documented as of this encounter Results * XR SHOULDER 2+ VW BILAT (11/15/2020 12:53 PM CDT) Anatomical Region Laterality Modality Upper Extremity Computed Radiogr aphy 11/15/2020 12:5 4 PM CDT Impressions 11/16/2020 9:09 AM CDT IMPRESSION: Please see below. EXAM: XR SHOULDER 2+ VW BILAT DATE/TIME OF EXAM: 11/15/2020 12:53 PM REASON FOR STUDY: See Diagnosis DIAGNOSIS: Chronic pain of both shoulders; Chronic pain of both shoulders; Chronic pain of both shoulders COMPARISON: None FINDINGS: Bones: No acute fracture or acute bony finding. No dislocation is present. Mineralization: Within normal limits Degenerative Changes: Advanced degenerative changes in the right acromioclavicular joint with abundant osteophyte formation. Moderate right glenohumeral joint space narrowing. Moderate left acromioclavicular and and lateral joint space narrowing. Soft Tissue: No appreciable soft tissue swelling or radiopaque foreign body. IMPRESSION: No acute bony finding. Degenerative changes. Narrative 11/16/2020 9:09 AM CDT Procedure Note Deana Macario MD - 11/16/2020 IMPRESSION: Please see below. EXAM: XR SHOULDER 2+ VW BILAT DATE/TIME OF EXAM: 11/15/2020 12:53 PM REASON FOR STUDY: See Diagnosis DIAGNOSIS: Chronic pain of both shoulders; Chronic pain of both shoulders; Chronic pain of both shoulders COMPARISON: None FINDINGS: Bones: No acute fracture or acute bony finding. No dislocation is present. Mineralization: Within normal limits Degenerative Changes: Advanced degenerative changes in the right acromioclavicular joint with abundant osteophyte formation. Moderate right glenohumeral joint space narrowing. Moderate left acromioclavicular and and lateral joint space narrowing. Soft Tissue: No appreciable soft tissue swelling or radiopaque foreign body. IMPRESSION: No acute bony finding. Degenerative changes. Floresita Bustillo DO DIAGNOSTIC IMAGING ORDERABL ES Final Result documented in this encounter Visit Diagnoses Diagnosis Chronic pain of both shoulders Pain in joint, shoulder region Chronic pain of both shoulders Pain in joint, shoulder region documented in this encounter Care Teams Geriatric Psychiatrist Relationship Specialty Start Date End Date Floresita Bustillo DO [address] [place] [address] PCP - General 01/24/09 documented as of this encounter
--- OUTSIDE RECORDS SUMMARY | 2025-03-01 06:33 | XMS_ITS | Encounter Summary ---
Author Organization [facility] Address [address] [place] [address] Care Team Providers Care Fire Tower Keeper Name Role Phone Floresita Bustillo DO Primary Care Provider [phone] Reason for Referral * Outpatient Services (Routine) - Closed Specialty Diagnoses / Procedures Referred By Mark t Referred To Contact Multi Specialty Diagnoses Chronic GI bleeding Chronic anemia Iron deficiency anemia due to chronic blood loss Procedures INFUSION THERAPY CT IRON SUCROSE INJECTION Venofer Floresita Bustillo DO [address] [place] [address] Phone: tel: fax: [facility] Outpatient Services [place] [address] [place] [address] Phone: tel: fax: Referral ID Status Reason Start Date Expiration Date Visits Requested Visits Authorized [id number] Closed Performing Department to Schedule 01/01/2025 02/15/2025 5 5 Encounter Details Date Type Department Care Team (Latest Contact Info) Description 12/29/2024 Results Follow-Up [facility] Family Medicine [place] [address] [place] [address] Floresita Bustillo DO [address] [place] [address] CBC WITH DIFFERENTIAL Social History Tobacco Use Types Packs/Day Years [...] on file Legal Sex Male 2:11 PM ANALYSIS SPECIALIST Gender Identity Not on file Sexual Orientation Not on file documented as of this encounter Plan of Treatment Upcoming Encounters Date Type Department Care Team (Late st Contact Info) Description 05/03/2025 11:30 AM CDT Office Visit [facility] Gastroenterology- [place] [address] [place] [phone] Elina Enrique PA-C [address] [place] [address] 05/27/2025 3:40 PM ANALYSIS SPECIALIST Office Visit [facility] Family Medicine [place] [address] [place] [address] Floresita Bustillo DO [address] [place] [address] documented as of this encounter Visit Diagnoses Diagnosis Chronic GI bleeding- Primary Hemorrhage of gastrointestinal tract, unspecified Chronic anemia Anemia, unspecified Iron deficiency anemia due to chronic blood loss Iron deficiency anemia secondary to blood loss (chronic) documented in this encounter Care Teams Fire Tower Keeper Relationship Specialty Start Date End Date Floresita Bustillo DO [address] [place] [address] PCP - General 01/24/09 documented as of this encounter
--- OUTSIDE RECORDS SUMMARY | 2025-03-01 06:33 | XMS_ITS | Encounter Summary ---
Author Organization [facility] Address [address] [place] [address] Care Team Providers Care Ball Mill Mixer Name Role Phone Floresita Bustillo DO Primary Care Provider Encounter Details Date Type Department Care Team (Latest Contact Info) Description 06/12/2004 Outpatient Historical [facility] [address] [place] [address] Nito Vega MD [address] [place] [phone] DERMATITIS NOS (Primary Dx) Social History Tobacco Use Types Packs/Day Years Used Date Smoking Tobacco: Never Assessed Sex and Gender Information Value Date Recorded Sex Assigned at Not on file 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
--- OUTSIDE RECORDS SUMMARY | 2025-03-01 06:33 | XMS_ITS | Encounter Summary ---
Author Organization [facility] Address [address] [place] [address] Care Team Providers Care Heat Treat Puller Name Role Phone Floresita Bustillo DO Primary Care Provider Encounter Details Date Type Department Care Team (Latest Contact Info) Description 04/05/2006 Outpatient Historical [facility] Medicine [address] [phone] Claribel Sabillon MD [address] [place] [phone] Open Wound of Foot (Primary Dx) Social History Tobacco Use Types Packs/Day Years Used Date Smoking Tobacco: Never Assessed Sex and Gender Information Value Date Recorded Sex Assigned at Not on file 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
--- OUTSIDE RECORDS SUMMARY | 2025-03-01 06:33 | XMS_ITS | Encounter Summary ---
Author Organization [facility] Address [address] [place] [address] Care Team Providers Care Bond Underwriter Name Role Phone Floresita Bustillo DO Primary Care Provider [phone] Encounter Details Date Type Department Care Team (Latest Contact Info) Description 09/20/2004 Outpatient Historical [facility] [address] [place] [address] Nito Vega MD [address] [place] [phone] SPRAIN OF HAND NOS (Primary Dx) Social History Tobacco Use Types Packs/Day Years Used Date Smoking Tobacco: Never Assessed Sex and Gender Information Value Date Recorded Sex Assigned at Not on file 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
--- OUTSIDE RECORDS SUMMARY | 2025-03-01 06:33 | XMS_ITS | Encounter Summary ---
Author Organization [facility] Address [address] [place] [address] Care Team Providers Care Flexographic Press Operator Name Role Phone Floresita Bustillo DO Primary Care Provider Encounter Details Date Type Department Care Team (Latest Contact Info) Description 10/26/2004 Outpatient Historical [facility] [address] [place] [address] Nito Vega MD [address] [place] [phone] UNSPECIFIED VIRAL INFECTION (Primary Dx) Social History Tobacco Use Types Packs/Day Years Used Date Smoking Tobacco: Never Assessed Sex and Gender Information Value Date Recorded Sex Assigned at Not on file Legal Sex Male 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
--- OUTSIDE RECORDS SUMMARY | 2025-03-01 06:33 | XMS_ITS | Encounter Summary ---
Author Organization [facility] Address [address] [place] [address] Care Team Providers Care Rodbuster Name Role Phone Floresita Bustillo DO Primary Care Provider Encounter Details Date Type Department Care Team (Latest Contact Info) Description 03/16/2004 Outpatient Historical [facility] Medicine [place] [address] [phone] Aj Senior MD [address] [place] [phone] JOINT PAIN-SHLDER (Primary Dx) Social History Tobacco Use Types Packs/Day Years Used Date Smoking Tobacco: Never Assessed Sex and Gender Information Value Date Recorded Sex Assigned at Not on file Legal Sex Male 4:48 AM CORSETIER Gender Identity Not on file Sexual Orientation Not on file documented as of this encounter Plan of Treatment Not on file documented as of this encounter Visit Diagnoses Diagnosis Pain in joint, shoulder region- Primary documented in this encounter Care Teams Rodbuster Relationship Specialty Start Date End Date Floresita Bustillo DO [address] [place] [phone] PCP - General 01/24/09 documented as of this encounter
--- NOTE | 2025-03-01 06:42 | W.ED.AMS ---
HPI - Altered Mental Status General: Chief Complaint: Altered Mental Status Stated Complaint: ams, abnormal labs Time Seen by Provider: 03/01/25 06:31 History of Present Illness: 70-year-old male presents emergency room via EMS with increased confusion has a history of Delacruz. is his caregiver reported increasing confusion recently. She was up with around 130 when he went to the bathroom she noticed he was increasingly confused she had fallen asleep and then around 530 when she woke up with him he was more lethargic she tried to give him lactulose earlier in the night around 230 but he vomited it shortly after being given. Patient nonresponsive. Will not open his eyes to verbal stimuli. Related Data Home Medications ?Medication ?Instructions ?Recorded ?Confirmed insulin aspart U-100 100 unit/mL 5 - 20 unit SUBCUT QID 08/23/24 03/01/25 (3 mL) subcutaneous pen (Novolog FlexPen U-100 Insulin aspart) insulin glargine 100 unit/mL (3 25 unit SUBCUT QPM 08/23/24 03/01/25 mL) subcutaneous pen (Basaglar KwikPen U-100 Insulin) levothyroxine 25 mcg tablet 25 mcg PO QAM 08/23/24 03/01/25 midodrine 5 mg tablet 5 mg PO TID 08/23/24 03/01/25 ondansetron 8 mg disintegrating 8 mg PO PRN PRN nauesa 08/23/24 03/01/25 tablet spironolactone 50 mg tablet 50 mg PO DAILY swelling 08/23/24 03/01/25 sucralfate 1 gram tablet 1 g PO TID 08/23/24 03/01/25 betamethasone dipropionate 0.05 % See Rx Instructions .Route .COMPLEX 09/15/24 03/01/25 topical ointment furosemide 40 mg tablet 40 mg PO DAILY 03/01/25 03/01/25 lactulose 10 gram/15 mL oral See Rx Instructions .Route .COMPLEX 03/01/25 03/01/25 solution (Enulose) oxycodone 10 mg tablet 10 mg PO TID PRN Moderate Pain 03/01/25 03/01/25 (Scale Score 5-6) pantoprazole 40 mg tablet,delayed 40 mg PO BID 03/01/25 03/01/25 release Previous Rx's ?Medication ?Instructions ?Recorded rifaximin 550 mg tablet (Xifaxan) 550 mg PO BID #90 tabs 08/15/21 Allergies Allergy/AdvReac Type Severity Reaction Status Date / Time Sulfa (Sulfonamide Allergy ALGY-Rash Verified 09/15/24 10:08 Antibiotics) Review of Systems General: Reports: ROS unobtainable due to medical condition and ROS unobtainable due to mental status PFSH ED PFSH: Medical History Diabetes 1.5, 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) Thrombocytopenia, unspecified Hyponatremia Chronic hyponatremia Liver cirrhosis secondary to DELACRUZ Upper GI bleed CKD (chronic kidney disease) stage 2, GFR 60-89 ml/min -baseline Cr wnl -current renal function at baseline Hepatic encephalopathy -noted ammonia-69; mentation at baseline -on lactulose Obstructive sleep apnea -CPAP qhs Hypothyroidism -TSH wnl -continue levothyroxine Hypertension -VSS -discontinue ARB, continue Aldactone; due to low normal BP and risk of hypotension GERD (gastroesophageal reflux disease) Acute hyponatremia -improved with hydration, on salt tablets -suspect some degree of this will persist chronically Surgical History 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 @ [place], [place] History of umbilical hernia repair (04/18/21) H/O esophagogastroduodenoscopy (03/08/20) History of vasectomy History of surgery on upper extremity History of arthroscopic knee surgery History of appendectomy Family History Other Bleeding disorder CAD (coronary artery disease) Diabetes Hypertension Lung disease Psychiatric illness Denies family history of Clotting disorder Dementia Hyperlipidemia Chronic kidney disease (CKD) Suicide Anesthesia complication Cancer Stroke Social History Smoking and tobacco/nicotine status: former use of tobacco/nicotine Quit status (tobacco/nicotine): has quit using Year quit tobacco: 1981 Former quit date comment: smoked 40+ years Alcohol intake: former Substance/Drug Use: never Physical Exam Const: NUTRITIONAL APPEARANCE: obese ORIENTATION/CONSCIOUSNESS: Yes patient obtunded HENMT: COMMON NORMALS: normocephalic, atraumatic and hearing grossly normal bilaterally HEAD & SCALP: normocephalic and atraumatic Resp: COMMON NORMALS: normal respiratory effort, No retractions, No use of accessory muscles and clear to auscultation bilaterally AUSCULTATION: clear to auscultation bilaterally Cardio: COMMON NORMALS: regular rate, regular rhythm and No murmurs present (Cardio) RATE: regular rate RHYTHM: regular rhythm GI: COMMON NORMALS: Soft to palpation and No hepatosplenomegaly present AUSCULTATION: Yes normoactive bowel sounds PALPATION: Yes Soft to palpation, No Tenderness to palpation present (GI), No Guarding due to palpation present (GI) and Yes No hepatosplenomegaly present Extremity: COMMON NORMALS: normal to inspection, capillary refill normal and no calf tenderness Skin: COMMON NORMALS: no rashes or lesions noted GENERAL SKIN EXAM: no rashes or lesions noted Course Vital Signs: Vital signs: Vital Signs Temperature 98.1 F 03/01/25 06:29 Pulse Rate 69 03/01/25 09:00 Respiratory Rate 14 03/01/25 09:00 Blood Pressure 154/87 03/01/25 09:00 Pulse Oximetry 97 03/01/25 09:00 Oxygen Delivery Me thod Room Air 03/01/25 09:00 MDM - Altered Mental Status Medical Decision Making Hepatic encephalopathy with ammonia level of 355. Initially gave Rocephin his lactic acid is elevated concerned about a possible SBP. Urine and chest were normal. Suspect his lactic acid may be elevated and is a slight acute kidney injury from poor fluid intake. Discussed with Dr. Tavares orders written for admission. CT of the abdomen there is no fluid amenable for paracentesis. Medical Records I reviewed the patient's medical records. Lab Data I reviewed the patient's lab results. 03/01/25 06:40 03/01/25 06:40 Radiology Impressions Chest X-Ray 03/01/25 06:31 IMPRESSION: No acute findings. Laboratory Results WBC 9.02 10^3/uL (3.29-11.43) 03/01/25 06:40 RBC 5.14 10^6/uL (3.85-5.65) 03/01/25 06:40 Hgb 14.50 g/dL (11.27-16.99) 03/01/25 06:40 Hct 45.8 % (37-53) 03/01/25 06:40 MCV 89.1 fl (82-101) 03/01/25 06:40 MCH 28.2 pg (27-33) 03/01/25 06:40 MCHC 31.7 g/dL (30-55) 03/01/25 06:40 RDW 25.3 % (12.1-15.1) H 03/01/25 06:40 Plt Count 81 10^3/cmm (157-399) L 03/01/25 06:40 MPV Not Reportable 03/01/25 06:40 Neut % (Auto) 82.0 % 03/01/25 06:40 Lymph % (Auto) 8.0 % 03/01/25 06:40 [place] % (Auto) 8.1 % 03/01/25 06:40 Eos % (Auto) 1.2 % 03/01/25 06:40 Baso % (Auto) 0.3 % 03/01/25 06:40 Neut # (Auto) 7.39 10^3/uL (1.8-7.7) 03/01/25 06:40 Lymph # (Auto) 0.7 10^3/uL (0.8-4.8) L 03/01/25 06:40 [place] # (Auto) 0.7 10^3/uL (0.2-0.9) 03/01/25 06:40 Eos # (Auto) 0.1 10^3/uL (0.0-0.8) 03/01/25 06:40 Baso # (Auto) 0.0 10^3/uL (0.0-0.1) 03/01/25 06:40 Nucleated RBC % (auto) 0 % 03/01/25 06:40 Nucleated RBCs # 0.0 /100WBC 03/01/25 06:40 PT 15.60 SECONDS (12.1-14.9) H 03/01/25 06:40 INR 1.16 (0.8-1.2) 03/01/25 06:40 Specimen Type Arterial 03/01/25 06:56 Sample Site Radial, left 03/01/25 06:56 ABG pH 7.49 (7.35-7.45) H 03/01/25 06:56 ABG pCO2 30.1 mmHg (35-45) L 03/01/25 06:56 ABG pO2 70.4 mmHg (80.0-100.0) L 03/01/25 06:56 ABG PO2/FiO2 Ratio 335 03/01/25 06:56 ABG HCO3 22.9 mmol/L (22-26) 03/01/25 06:56 ABG O2 Saturation 94.7 03/01/25 06:56 ABG Base Excess 0.4 mmol/L (-2.0-2.0) 03/01/25 06:56 Torey Test Pos 03/01/25 06:56 A-a O2 Gradient 5.3 mmHg (5-10) 03/01/25 06:56 Hematocrit 41.9 % (42-52) L 03/01/25 06:56 Hgb O2 Saturation 94.6 % (95-100) L 03/01/25 06:56 Carboxyhemoglobin 0.9 %THgb (0.4-20.1) 03/01/25 06:56 Methemoglobin < 0.0 % (0.4-1.5) L 03/01/25 06:56 Total Hemoglobin 13.7 g/dL (14-18) L 03/01/25 06:56 Sodium 142.0 mmol/L (131-143) 03/01/25 06:56 Potassium 4.9 mmol/L (3.5-5.0) 03/01/25 06:56 Glucose 175.0 mg/dL (70-115) H 03/01/25 06:56 Ionized Calcium 1.2 mmol/L (1.1-1.4) 03/01/25 06:56 O2 Delivery Device Room air 03/01/25 06:56 FiO2 21.0 % 03/01/25 06:56 Political Science Chair ID Cak 03/01/25 06:56 Sodium 139 mmol/L (136-145) 03/01/25 06:40 Potassium 5.3 mmol/L (3.5-5.1) H 03/01/25 06:40 Chloride 109 mmol/L (98-107) H 03/01/25 06:40 Carbon Dioxide 21 mmol/L (22-29) L 03/01/25 06:40 Anion Gap 14.3 (5-19) 03/01/25 06:40 BUN 24 mg/dL (8-23) H 03/01/25 06:40 Creatinine 1.3 mg/dL (0.7-1.2) H 03/01/25 06:40 GFR Calculation 54.7 mL/min (90-130) L 03/01/25 06:40 Glucose 172 mg/dL (65-115) H 03/01/25 06:40 POC Glucose 147 mg/dL (70-110) H 03/01/25 06:55 Calculated Osmolality 296 mOsm/kg (285-295) H 03/01/25 06:40 Lactic Acid 2.4 mmol/L (0.5-2.2) H 03/01/25 06:40 Calcium 9.0 mg/dL (8.5-10.5) 03/01/25 06:40 Total Bilirubin 1.5 mg/dL (0.15-1.2) H 03/01/25 06:40 AST 42 U/L (0-40) H 03/01/25 06:40 ALT 54 U/L (0-41) H 03/01/25 06:40 Alkaline Phosphatase 120 U/L (40-130) 03/01/25 06:40 Ammonia 355 umol/L (16-60) H 03/01/25 06:40 Total Protein 5.9 g/dL (6.6-8.7) L 03/01/25 06:40 Albumin 3.2 g/dL (3.5-5.2) L 03/01/25 06:40 Globulin 2.7 g/dL (1.3-4.6) 03/01/25 06:40 Urine Color Yellow (Yellow) 03/01/25 07:55 Urine Appearance Clear (CLEAR) 03/01/25 07:55 Urine pH 8.5 (5-7) A 03/01/25 07:55 Ur Specific [place] 1.022 (1.005-1.030) 03/01/25 07:55 Urine Protein 1+ (Negative) A 03/01/25 07:55 Urine Glucose (UA) Negative (Normal) 03/01/25 07:55 Urine Ketones Negative (Negative) 03/01/25 07:55 Urine Blood Negative (Negative) 03/01/25 07:55 Urine Nitrate Negative (Negative) 03/01/25 07:55 Urine Bilirubin Negative (Negative) 03/01/25 07:55 Urine Urobilinogen 1.0 mg/dL (Negative) 03/01/25 07:55 Ur Leukocyte Esterase Trace (Negative) A 03/01/25 07:55 Urine RBC None /hpf (0-2) 03/01/25 07:55 Urine WBC 0-4 /hpf (0-5) H 03/01/25 07:55 Ur Squamous Epith Cells None /hpf (0-5) 03/01/25 07:55 Amorphous Sediment Not Reportable 03/01/25 07:55 Urine Bacteria 1+ /hpf (NONE) H 03/01/25 07:55 Serum Ketones Negative (Negative) 03/01/25 06:40 All radiology interpretation(s) finalized by discharge Discharge Plan Discharge Patient Disposition: Admitted As Inpatient Clinical Impression: Acute hepatic encephalopathy, 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
[2025-03-01 06:53] LABS: Hematocrit 45.8 % (37-53); Hemoglobin 14.50 g/dL (11.27-16.99); Mean Corpuscular HGB Conc 31.7 g/dL (30-55); Mean Corpuscular Hemoglobin 28.2 pg (27-33); Mean Corpuscular Volume 89.1 fl (82-101); Nucleated Red Blood Cells % 0 %; Platelet Count 81 10^3/cmm (157-399); Red Blood Count 5.14 10^6/uL (3.85-5.65); White Blood Count 9.02 10^3/uL (3.29-11.43)
[2025-03-01 07:04] LABS: INR 1.16 (0.8-1.2); Prothrombin Time 15.60 SECONDS (12.1-14.9)
[2025-03-01 07:08] LABS: ABG PCO2 30.1 mmHg (35-45); ABG PH Result 7.49 (7.35-7.45); Alveolar-Arterial Oxygen Gradi 5.3 mmHg (5-10); Arterial Blood Gas Hematocrit 41.9 % (42-52); Blood Gas Allen Test Pos; Blood Gas Operator Identificat CAK; Blood Gas Sample Site Radial, left; Blood Gas Sample Type Arterial; Carboxyhemoglobin 0.9 %THgb (0.4-20.1); Glucose Level-ABG 175.0 mg/dL (70-115); HCO3 ABG 22.9 mmol/L (22-26); Ionized Calcium Level - ABG 1.2 mmol/L (1.1-1.4); Methemoglobin < 0.0 % (0.4-1.5); Oxygen Saturation ABG 94.7; PO2 ABG 70.4 mmHg (80.0-100.0); PO2 FiO2 Ratio Arterial Blood 335; Potassium Level - ABG 4.9 mmol/L (3.5-5.0); Sodium Level - ABG 142.0 mmol/L (131-143)
[2025-03-01 07:08] LABS: Ammonia 355 umol/L (16-60)
[2025-03-01 07:09] LABS: Alanine Aminotransferase 54 U/L (0-41); Albumin Level 3.2 g/dL (3.5-5.2); Alkaline Phosphatase 120 U/L (40-130); Anion Gap 14.3 (5-19); Aspartate Amino Transferase 42 U/L (0-40); Blood Urea Nitrogen 24 mg/dL (8-23); Calcium 9.0 mg/dL (8.5-10.5); Carbon Dioxide 21 mmol/L (22-29); Chloride 109 mmol/L (98-107); Creatinine Clr Calc Pharmacy 72.7820; Globulin 2.7 g/dL (1.3-4.6); Glucose 172 mg/dL (65-115); Osmolality Calculated 296 mOsm/kg (285-295); Potassium 5.3 mmol/L (3.5-5.1); Sodium 139 mmol/L (136-145); Total Protein 5.9 g/dL (6.6-8.7)
[2025-03-01] MEDS: ondansetron 2 mg/ML SDV 2 mL 4 MG IVP (07:21)
[2025-03-01 07:27] LABS: Lactic Sepsis W/Reflex 2.4 mmol/L (0.5-2.2)
[2025-03-01 07:46] LABS: Slide Review Slide Review Perform
[2025-03-01 08:07] LABS: Glucose Urine UA Negative (Normal); Nitrate Urine Negative (Negative); Specific Gravity, Urine 1.022 (1.005-1.030)
[2025-03-01 08:08] LABS: Ketone (Acetest) Serum Negative (Negative)
--- NOTE | 2025-03-01 08:18 | PC.NURSE ---
changed PT bedding and placed PT in gown
[2025-03-01] MEDS: cefTRIAXone 1,000 mg SDV 1000 MG IVP (08:28)
[2025-03-01 08:33] LABS: UA Manual Slide Review YES
[2025-03-01 08:34] LABS: Add Urine Microscopic? YES
[2025-03-01 08:57] LABS: Reflex Lactate Order REFLEX LACTIC ORDERD
[2025-03-01] MEDS: calcium gluconate 0.1 gm/mL 10% SDV 10mL 1 GM IVP (09:22)
--- NOTE | 2025-03-01 09:30 | US_ITS ---
WS: [id number] Ultrasound abdomen limited INDICATION: Ascites TECHNIQUE: Ultrasound abdomen limited FINDINGS: No fluid visualized in the abdomen. US/US abdomen lmt fluid [id number] IMPRESSION: No fluid visualized.
[2025-03-01 10:18] LABS: Lactic Acid level (Lactate) 2.5 mmol/L (0.5-2.2)
--- NOTE | 2025-03-01 10:38 | PM.CCN ---
Critical Care Event Note Patient was admitted to the ICU he still in the emergency room as an ICU hold is a ICU bed not currently available. Nurses made me aware he is beginning to struggle with his secretions. He vomited once last night that had told us about. When I reevaluated patient he continues to be obtunded he is still very poorly responsive he is choking on secretions. Discussed Dr. Tavares decision was made to intubate to control his airway. Additionally he will need lactulose via OG tube. Critical Care Time Code activated: No Critical Care Time (min): 0 Procedures Intubation Time out performed: Yes Sedative: etomidate Mg given: 20 Paralytic: vecuronium Mg given: 10 Laryngoscope: fiber optic video scope ET tube size: 8 ET tube uncuffed: No Tube secured depth (cm): 24 Tube secured location: teeth Tube placement confirmation: visualized tube passing through cords, equal breath sounds bilaterally, no breath sounds over epigastrium, confirmation by capnometry and color change noted Patient tolerated procedure: well Intubation complications: none Coding Level of Care Code Acute Code for Chg Anabel
[2025-03-01] MEDS: midazolam hcl 100 MG/100 ML BAG IV (10:43)
[2025-03-01] MEDS: fentaNYL 1,000 MCG/100 ML BAG 2.5 MCG IV (10:44)
--- NOTE | 2025-03-01 10:44 | XR_ITS ---
WS: [id number] Portable AP supine chest, 03/01/2025, 1044 hours Clinical Data: POST INTUBATION Comparison: Portable chest, 03/01/2025, 0645 hours Findings: The endotracheal tube is above the kala. There is a nasogastric tube which appears to be in the esophagus and ends in the stomach XR/XR chest 1V portable [id number] Impression: Satisfactory placement of endotracheal tube and nasogastric tube.
--- NOTE | 2025-03-01 10:45 | PC.NURSE ---
PT unable to handle secretions. Verbal order for RSI intubation from Dr. Chanel. RSI box used. PT received 20MG etomidate and 10MG vecuroniom IV, per Dr. Chanel. Physician, respiratory, and charge nurse at bedside. PT intubated at 1035.
--- NOTE | 2025-03-01 10:59 | PM.HP ---
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 He had been doing well and ambulating independently at [facility] earlier in the day, but became progressively sluggish by 1:30 AM and was unable to get out of bed without assistance. Repeated episodes of non-bloody emesis began around 2:20 AM, during which two attempts to administer his scheduled lactulose were vomited. Since the last tolerated dose (approximately 11 PM the previous night) he has received no further lactulose. His reports no fever, abdominal pain, diarrhea, dark stools, or recent hematemesis. Past events include a transjugular intrahepatic portosystemic shunt (TIPS) in January 2022, after which ascites resolved but ammonia levels have been intermittently difficult to control. He has gastric antral vascular ectasia (GAVE) treated with radiofrequency ablation on 21 January 2023 and had five iron infusions that increased hemoglobin from 8 g/dL to 15 g/dL. A fall one week ago resulted in a large skin tear and extensive bruising of the left arm. Other history includes obstructive sleep apnea treated with continuous positive airway pressure (CPAP) and a remote episode of acute kidney failure requiring temporary dialysis. On presentation he was noted to be somnolent, belligerent when arousable, and at risk for airway compromise; endotracheal intubation was performed for airway protection. Initial laboratory studies revealed markedly elevated ammonia (355 ?mol/L), chronic thrombocytopenia (platelets 81 K/?L), mild hyperbilirubinemia (1.5 mg/dL), and metabolic alkalosis on arterial blood gas. [id number] ultrasound demonstrated no ascites. A chest X-ray was read as non-acute but aspiration pneumonitis remains a concern given multiple vomiting episodes and choking witnessed by his . Review of Systems General: Reports: ROS unobtainable due to mental status Medications/Allergies Home Medications ?Medication ?Instructions ?Recorded ?Confirmed ?Last Taken ?Type rifaximin 550 mg tablet (Xifaxan) 550 mg PO BID #90 tabs 08/15/21 03/01/25 02/28/25 Rx insulin aspart U-100 100 unit/mL 5 - 20 unit SUBCUT QID 08/23/24 03/01/25 02/28/25 History (3 mL) subcutaneous pen (Novolog FlexPen U-100 Insulin aspart) insulin glargine 100 unit/mL (3 25 unit SUBCUT QPM 08/23/24 03/01/25 02/28/25 History mL) subcutaneous pen (Basaglar KwikPen U-100 Insulin) levothyroxine 25 mcg tablet 25 mcg PO QAM 08/23/24 03/01/25 02/28/25 History midodrine 5 mg tablet 5 mg PO TID 08/23/24 03/01/25 02/28/25 History ondansetron 8 mg disintegrating 8 mg PO PRN PRN nauesa 08/23/24 03/01/25 Unknown History tablet spironolactone 50 mg tablet 50 mg PO DAILY swelling 08/23/24 03/01/25 02/28/25 History sucralfate 1 gram tablet 1 g PO TID 08/23/24 03/01/25 02/28/25 History betamethasone dipropionate 0.05 % See Rx Instructions .Route .COMPLEX 09/15/24 03/01/25 02/28/25 History topical ointment furosemide 40 mg tablet 40 mg PO DAILY 03/01/25 03/01/25 02/28/25 History lactulose 10 gram/15 mL oral See Rx Instructions .Route .COMPLEX 03/01/25 03/01/25 02/28/25 History solution (Enulose) oxycodone 10 mg tablet 10 mg PO TID PRN Moderate Pain 03/01/25 03/01/25 Unknown History (Scale Score 5-6) pantoprazole 40 mg tablet,delayed 40 mg PO BID 03/01/25 03/01/25 02/28/25 History release Allergies Allergy/AdvReac Type Severity Reaction Status Date / Time Sulfa (Sulfonamide Allergy ALGY-Rash Verified 09/15/24 10:08 Antibiotics) PFSH Acute PFSH: Medical History Gastric hemorrhage due to 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, 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) Thrombocytopenia, unspecified Hyponatremia Chronic hyponatremia 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 Upper GI bleed CKD (chronic kidney disease) stage 2, GFR 60-89 ml/min -baseline Cr wnl -current renal function at baseline Hepatic encephalopathy -noted ammonia-69; mentation at baseline -on lactulose Obstructive sleep apnea -CPAP qhs Hypothyroidism -TSH wnl -continue levothyroxine Hypertension -VSS -discontinue ARB, continue Aldactone; due to low normal BP and risk of hypotension GERD (gastroesophageal reflux disease) Acute hyponatremia -improved with hydration, on salt tablets -suspect some degree of this will persist chronically Surgical History 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 @ [place], [place] History of umbilical hernia repair (04/18/21) H/O esophagogastroduodenoscopy (03/08/20) History of vasectomy History of surgery on upper extremity History of arthroscopic knee surgery History of appendectomy Family History Other Bleeding disorder CAD (coronary artery disease) Diabetes Hypertension Lung disease Psychiatric illness Denies family history of Clotting disorder Dementia Hyperlipidemia Chronic kidney disease (CKD) Suicide Anesthesia complication Cancer Stroke Social History Smoking and tobacco/nicotine status: former use of tobacco/nicotine Quit status (tobacco/nicotine): has quit using Year quit tobacco: 1981 Former quit date comment: smoked 40+ years Alcohol intake: former Substance/Drug Use: never Vitals/I&O/Wt Last Vital Signs Temp 98.1 F 03/01/25 06:29 Pulse 71 03/01/25 10:30 Resp 14 03/01/25 10:44 BP 164/74 03/01/25 10:30 Pulse Ox 97 03/01/25 10:30 O2 Del Method Room Air 03/01/25 09:00 FiO2 50 03/01/25 10:44 02/28/25 03/01/25 03/01/25 22:59 06:59 14:59 Intake Total 1000 / 1000 Balance 1000 / 1000 Weight last 48 hrs Weight 116.573 kg Physical Exam Narrative: Accompanied by his Const: COMMON NORMALS: negative for alert GENERAL APPEARANCE: not cooperative ORIENTATION/CONSCIOUSNESS: Yes patient obtunded; not awake HENMT: COMMON NORMALS: oropharynx normal Neck/C-Spine: COMMON NORMALS: no JVD Resp: COMMON NORMALS: normal respiratory effort and clear to auscultation bilaterally AUSCULTATION: clear to auscultation bilaterally OTHER: Upper respiratory rhonchi Cardio: COMMON NORMALS: no JVD, regular rhythm, S1 normal heart sound present, S2 normal heart sound present and No murmurs present (Cardio) RHYTHM: regular rhythm HEART SOUNDS: S1 normal heart sound present and S2 normal heart sound present GI: COMMON NORMALS: Normal to inspection, nondistended, normoactive bowel sounds present, Soft to palpation and non-tender PALPATION: Yes Soft to palpation OTHER: Large abdomen. Extremity: COMMON NORMALS: no joint enlargement GENERAL: Yes edema (Trace) Neuro: COMMON NORMALS: moves all extremities SENSORIUM/ORIENTATION: Yes alert Skin: COMMON NORMALS: no rashes or lesions noted GENERAL SKIN EXAM: no rashes or lesions noted Urinary Catheter Management: Kraus: Cath Placed During This Visit: yes Urinary Catheter Date of Insertion: 03/01/25 Urinary Catheter Time of Insertion: 08:10 Data 03/01/25 06:40 03/01/25 06:40 Micro: Microbiology 03/01/25 07:17 Blood Culture - Preliminary Blood SPECIMEN COLLECTED 03/01/25 07:17 Blood Culture - Preliminary Blood SPECIMEN COLLECTED A&P Assessment and plan 1. Acute hepatic encephalopathy: Hepatic encephalopathy with hyperammonemia : Markedly elevated ammonia (355 ?mol/L) with acute confusion and vomiting following missed lactulose doses; history of difficult ammonia control post-TIPS. Reviewed vitals, CBC, INR, ABG, CMP, lactic acid, ammonia, UA, chest x-ray, abdominal ultrasound, EKG, ED provider note, discussed with ED provider. - Insert nasogastric (NG) tube and administer lactulose every 6 hours until 2?3 soft bowel movements per day - Recheck ammonia level - Monitor mental status for improvement before considering extubation 2. Vomiting: Recurrent vomiting. NPO. Obtain acute abdominal x-ray. Ultrasound without ascites. Does not take NSAIDs, does not drink alcohol. Has not been able to tolerate lactulose due to vomiting. 3. Respiratory failure: Not protecting his airway, noted choking in the emergency department, requiring intubation. Continue mechanical ventilatory support, treat hepatic encephalopathy. Additionally with several episodes of vomiting while AMS concern for aspiration pneumonitis pneumonia. Chest X-ray non-acute yet aspiration pneumonitis remains possible. - Empiric antibiotics with ceftriaxone plus azithromycin - Maintain endotracheal intubation for airway protection and mechanical ventilator support. Pulmonary toilet. - Reassess for aspiration signs and wean ventilation once safe 4. 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 - Continue routine monitoring of liver function tests and clinical status Plan: Recent fall with skin tear and bruises : Large left arm bruising and skin tear from fall one week ago. Obstructive sleep apnea : Uses CPAP at home; currently intubated in ICU. Chronic thrombocytopenia : Platelets 81 K/?L, stable for patient. - Gastric antral vascular ectasia (GAVE) with bleeding history s/p ablation, GERD: PPI IV BID - Obstructive sleep apnea: on CPAP at home - History of obesity (maximum >300 lb, current ~220 lb): current weight 255lbs - History of acute kidney injury requiring temporary dialysis in 2021 Hospitalization bundle : ICU admission with continuous minimal sedation, mechanical ventilation, and serial labs/vitals. - ICU level monitoring with sedation titration - Serial vital signs and laboratory assessments per ICU protocol PDMP PDMP Reviewed: Not Reviewed Attestations Medical Necessity Statement*: Admission over 2 midnights anticipated for assessment management of severe acute hepatic encephalopathy with airway compromise and respiratory failure recurrent vomiting with aspiration, manage admitted with underlying liver cirrhosis, OSITO, additional comorbidities. Coding Level of Care Code Critical Care >/= 30 minutes Critical care time (in minutes): 35 The high probability of a clinically significant, sudden or life threatening deterioration, as referenced in this documentation, required my full and direct attention, intervention and personal management. The critical care time shown is in addition to time spent performing any reported separately billable procedures and includes the following: [x] Data and vital sign review and interpretation [x] Patient assessment, examination and intervention [x] Medication orders and management [x] Patient/Family updates as able [x] Care Coordination and Documentation. Diagnoses Acute hepatic encephalopathy K76.82 Vomiting R11.10 Respiratory failure J96.90 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
--- NOTE | 2025-03-01 11:21 | PC.NURSE ---
PT has a large skin tear on the right AC,forearm area from a fall PT had 1 week ago
--- NOTE | 2025-03-01 11:27 | XR_ITS ---
WS: [id number] Acute abdomen series, 03/01/2025 Clinical Data: repeat vomiting Comparison: KUB, 06/04/2021 Findings: In the chest there are no nodules or masses. The heart is normal. The pulmonary vascularity is not increased. There is a patchy opacity at the left costophrenic angle which could represent consolidation, effusion and/or atelectasis. No free air is seen beneath the diaphragms. No abnormal intra-abdominal masses or calcifications are seen. There is a moderate amount of fecal material in the colon. A nasogastric tube ends in the stomach. There is a stent which may extend from the portal vein to the inferior vena cava. Monitor leads are on the chest and abdominal wall. XR/XR acute abdomen series [id number] Impression: 1. Minimal patchy opacity at left costophrenic angle. 2. Moderate amount of fecal material in the colon.
[2025-03-01 11:43] LABS: ABG PCO2 33.1 mmHg (35-45); ABG PH Result 7.42 (7.35-7.45); Arterial Blood Gas Hematocrit 45.9 % (42-52); Blood Gas Allen Test Pos; Blood Gas LPM 14.0 %; Blood Gas Operator Identificat CAK; Blood Gas Sample Site Radial, left; Blood Gas Sample Type Arterial; Blood Gas Tidal Volume 0.55; HCO3 ABG 21.6 mmol/L (22-26); PO2 ABG 128.0 mmHg (80.0-100.0); PO2 FiO2 Ratio Arterial Blood 256
[2025-03-01] MEDS: pantoprazole 40 mg SDV IVP ×2 (13:05→22:52)
[2025-03-01] MEDS: lactulose oral liq 20 gm/30 mL UDC OG-TUBE ×3 (13:05→22:52)
[2025-03-01] MEDS: fentaNYL 1,000 MCG/100 ML BAG 10 MCG IV (18:01)
[2025-03-01] MEDS: insulin glargine 100 units/1 mL 12 UNIT SUBCUT (21:19)
[2025-03-02] VITALS (109 sets, daily range): BP systolic 113–166; BP diastolic 65–88; PULSE 52–81; RESP 12–18; TEMP 36.5–37.2; O2SAT 93–100
[2025-03-02 03:18] LABS: ABG PCO2 35.1 mmHg (35-45); ABG PH Result 7.39 (7.35-7.45); Arterial Blood Gas Hematocrit 41.4 % (42-52); Blood Gas Sample Site Brachial, left; Blood Gas Sample Type Arterial; Blood Gas Tidal Volume 0.55; HCO3 ABG 21.3 mmol/L (22-26); PEEP 5.0 cmH20; PO2 ABG 92.7 mmHg (80.0-100.0); PO2 FiO2 Ratio Arterial Blood 264
[2025-03-02 03:33] LABS: Hematocrit 41.4 % (37-53); Hemoglobin 13.20 g/dL (11.27-16.99); Mean Corpuscular HGB Conc 31.9 g/dL (30-55); Mean Corpuscular Hemoglobin 28.7 pg (27-33); Mean Corpuscular Volume 90.0 fl (82-101); Nucleated Red Blood Cells % 0 %; Platelet Count 76 10^3/cmm (157-399); Red Blood Count 4.60 10^6/uL (3.85-5.65); White Blood Count 8.88 10^3/uL (3.29-11.43)
[2025-03-02] MEDS: fentaNYL 1,000 MCG/100 ML BAG 10 MCG IV (03:47)
[2025-03-02 03:58] LABS: Alanine Aminotransferase 44 U/L (0-41); Albumin Level 2.7 g/dL (3.5-5.2); Alkaline Phosphatase 90 U/L (40-130); Anion Gap 12.3 (5-19); Aspartate Amino Transferase 33 U/L (0-40); Blood Urea Nitrogen 22 mg/dL (8-23); Calcium 8.4 mg/dL (8.5-10.5); Carbon Dioxide 21 mmol/L (22-29); Chloride 112 mmol/L (98-107); Creatinine Clr Calc Pharmacy 92.5414; Globulin 2.3 g/dL (1.3-4.6); Glucose 177 mg/dL (65-115); Magnesium 2.0 mg/dL (1.7-2.3); Osmolality Calculated 298 mOsm/kg (285-295); Potassium 5.3 mmol/L (3.5-5.1); Sodium 140 mmol/L (136-145); Total Protein 5.0 g/dL (6.6-8.7)
[2025-03-02 03:59] LABS: Ammonia 62 umol/L (16-60)
--- NOTE | 2025-03-02 04:34 | PC.NURSE ---
Patients potassium 5.3. reported to Dr. sheprad over telephone. See MAR for orders
[2025-03-02] MEDS: insulin regular-human 100 units/1 mL 10 UNIT IVP (04:51)
[2025-03-02] MEDS: lactulose oral liq 20 gm/30 mL UDC OG-TUBE ×4 (04:51→22:51)
[2025-03-02] MEDS: cefTRIAXone 1,000 mg SDV 1000 MG IVP (06:03)
[2025-03-02] MEDS: midazolam hcl 100 MG/100 ML BAG IV (07:41)
[2025-03-02 08:44] LABS: Anion Gap 13.1 (5-19); Blood Urea Nitrogen 23 mg/dL (8-23); Calcium 8.2 mg/dL (8.5-10.5); Carbon Dioxide 21 mmol/L (22-29); Chloride 113 mmol/L (98-107); Creatinine Clr Calc Pharmacy 92.4696; Glucose 154 mg/dL (65-115); Osmolality Calculated 301 mOsm/kg (285-295); Potassium 5.1 mmol/L (3.5-5.1); Sodium 142 mmol/L (136-145)
--- NOTE | 2025-03-02 09:03 | P.PN_ITS ---
Subjective 2 Subjective: Intubated, not alert, weaning down on sedation, mechanically supported breathing. Vitals/I&O/Wt Last Vital Signs Temp 98 F 03/02/25 04:00 Pulse 55 L 03/02/25 06:00 Resp 12 03/02/25 07:48 BP 122/68 03/02/25 06:00 Pulse Ox 99 03/02/25 07:48 O2 Del Method Mechanical Ventilation 03/01/25 11:09 FiO2 30 03/02/25 08:00 03/01/25 03/02/25 03/02/25 22:59 06:59 14:59 Intake Total 61.333 / 1364.774 835.167 / 2199.941 81.200 / 81.200 Output Total 1025 / 1025 350 / 1375 Balance -963.667 / 339.774 485.167 / 824.941 81.200 / 81.200 Weight last 48 hrs Weight 111.13 kg Weight 111.312 kg Weight 116.573 kg Physical Exam 2 Const: ORIENTATION/CONSCIOUSNESS: not awake HENMT: COMMON NORMALS: oropharynx normal Neck/C-Spine: COMMON NORMALS: no JVD Resp: COMMON NORMALS: clear to auscultation bilaterally AUSCULTATION: clear to auscultation bilaterally Cardio: COMMON NORMALS: no JVD, regular rhythm, S1 normal heart sound present, S2 normal heart sound present and No murmurs present (Cardio) RHYTHM: regular rhythm HEART SOUNDS: S1 normal heart sound present and S2 normal heart sound present GI: COMMON NORMALS: Normal to inspection, nondistended, normoactive bowel sounds present, Soft to palpation and non-tender PALPATION: Yes Soft to palpation OTHER: Large abdomen. Extremity: COMMON NORMALS: no joint enlargement GENERAL: Yes edema (1+) Skin: COMMON NORMALS: no rashes or lesions noted GENERAL SKIN EXAM: no rashes or lesions noted Urinary Catheter Management: Kraus: Cath Placed During This Visit: yes Reason for Continuing Indwelling Catheter: Accurate Measurement of Urinary Output in Critically Ill Patients Urinary Catheter Date of Insertion: 03/01/25 Urinary Catheter Time of Insertion: 08:10 Data 03/02/25 03:17 03/02/25 08:17 Micro: Microbiology 03/01/25 07:17 Blood Culture - Preliminary Blood NEGATIVE TO DATE 03/01/25 07:17 Blood Culture - Preliminary Blood NEGATIVE TO DATE 03/01/25 12:10 Gram Stain - Final Sputum - Endotracheal Tube Aspirate A&P Assessment and plan 1. Acute hepatic encephalopathy: Noted had a bowel movement with lactulose. Reviewed vitals, CBC, chemistry, magnesium, ammonia. Ammonia noted with improvement at 62. Discussed with nursing, caseworker intake. Wean down sedation, Precedex if needed in case of agitation is reported and history obtained from his . In case he is waking up well, proceed to extubation and continue lactulose by mouth. - While intubated continue OG tube and administer lactulose every 6 hours until 2?3 soft bowel movements per day - Recheck ammonia level - Monitor mental status for improvement before considering extubation Discussed with nursing, RT, caseworker intake. 2. Respiratory failure: Wean down sedation reassess wakefulness and consider possible extubation today. Continue treatment of aspiration pneumonia, noted left lower lobe on follow-up abdominal x-ray. Continue ceftriaxone, azithromycin. Obtain MRSA PCR. Not protecting his airway, noted choking in the emergency department, requiring intubation. Continue mechanical ventilatory support, treat hepatic encephalopathy. Additionally with several episodes of vomiting while AMS concern for aspiration pneumonitis/pneumonia. - Empiric antibiotics with ceftriaxone plus azithromycin, reassess EKG with risk of QT prolongation - Maintain endotracheal intubation for airway protection and mechanical ventilator support. Pulmonary toilet. - Reassess for aspiration signs and wean ventilation once safe 3. Vomiting: Without recurrence of vomiting. Reviewed acute abdominal obstructive series, no signs of obstruction. Continue PPI. Zofran as needed. Recurrent vomiting on presentation. NPO. Obtain acute abdominal x-ray. Ultrasound without ascites. Does not take NSAIDs, does not drink alcohol. Has not been able to tolerate lactulose due to vomiting. 4. 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 - Continue routine monitoring of liver function tests and clinical status Plan: Recent fall with skin tear and bruises : Large left arm bruising and skin tear from fall one week ago. Obstructive sleep apnea : Uses CPAP at home; currently intubated in ICU. Chronic thrombocytopenia : Platelets 76 K/?L, stable for patient. - Gastric antral vascular ectasia (GAVE) with bleeding history s/p ablation, GERD: PPI IV BID - Obstructive sleep apnea: on CPAP at home - History of obesity (maximum >300 lb, current ~220 lb): current weight 255lbs - History of acute kidney injury requiring temporary dialysis in 2021 Hospitalization bundle : ICU admission with continuous minimal sedation, mechanical ventilation, and serial labs/vitals. - ICU level monitoring with sedation titration - Serial vital signs and laboratory assessments per ICU protocol PDMP PDMP Reviewed: Not Reviewed Attestations 2 Medical Necessity Statement*: Continue admission for reassessment and continued management of hepatic encephalopathy, MV weaning and assessment for readiness for extubation, and a gentleman with underlying liver cirrhosis. Coding Level of Care Code Critical Care >/= 30 minutes Critical care time (in minutes): 35 The high probability of a clinically significant, sudden or life threatening deterioration, as referenced in this documentation, required my full and direct attention, intervention and personal management. The critical care time shown is in addition to time spent performing any reported separately billable procedures and includes the following: [x] Data and vital sign review and interpretation [x ] Patient assessment, examination and intervention [x] Medication orders and management [x] Patient/Family updates as able [x] Care Coordination and Documentation. 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
--- NOTE | 2025-03-02 11:00 | ECG_ITS ---
[facility] Date: 2025-03-02 Pat Name: Luis Muñoz Department: Room: [facility] Gender: Male [employer]: : 1955 Requested By: Domenico Tavares Order Number: [id number] Jae MD: Isaias Eduardo M.D. Measurements Intervals [place] Rate: 60 P: 22 ID: [id number] QRS: 50 QRSD: 81 T: 59 QT: 404 QTc: 407 Interpretive Statements SINUS RHYTHM Compared to ECG 03/01/2025 09:15:58 No significant changes Electronically Signed On 03-06-2025 09:47:29 CDT by Isaias Eduardo M.D. [id number]
[2025-03-02] MEDS: pantoprazole 40 mg SDV IVP ×2 (11:10→22:51)
[2025-03-02] MEDS: dexmedeTOMIDine 0.9 % NaCL 400 MCG/100 ML PREMIX IV (11:49)
[2025-03-02 14:35] LABS: MRSA PCR OZH (swab) NOT DETECTED (Negative)
--- NOTE | 2025-03-02 20:41 | PC.NURSE ---
RN spoke with Dr. shepard regarding plan of care. Patient off all sedation since this morning. patient beginning to awaken. If patient becomes agitated per MD restart precedex and fentanyl drip and attempt to extubate in the morning
[2025-03-02] MEDS: insulin glargine 100 units/1 mL 12 UNIT SUBCUT (21:22)
[2025-03-03] VITALS (108 sets, daily range): BP systolic 129–177; BP diastolic 69–92; PULSE 67–100; RESP 10–17; TEMP 36.6–37.7; O2SAT 92–99
[2025-03-03 03:06] LABS: Hematocrit 45.8 % (37-53); Hemoglobin 14.40 g/dL (11.27-16.99); Mean Corpuscular HGB Conc 31.4 g/dL (30-55); Mean Corpuscular Hemoglobin 28.3 pg (27-33); Mean Corpuscular Volume 90.2 fl (82-101); Nucleated Red Blood Cells % 0 %; Platelet Count 84 10^3/cmm (157-399); Red Blood Count 5.08 10^6/uL (3.85-5.65); White Blood Count 9.49 10^3/uL (3.29-11.43)
[2025-03-03 03:33] LABS: Ammonia 47 umol/L (16-60)
[2025-03-03 03:35] LABS: Alanine Aminotransferase 51 U/L (0-41); Albumin Level 3.0 g/dL (3.5-5.2); Alkaline Phosphatase 104 U/L (40-130); Anion Gap 14.3 (5-19); Aspartate Amino Transferase 46 U/L (0-40); Blood Urea Nitrogen 21 mg/dL (8-23); Calcium 8.6 mg/dL (8.5-10.5); Carbon Dioxide 20 mmol/L (22-29); Chloride 111 mmol/L (98-107); Creatinine Clr Calc Pharmacy 84.0633; Globulin 2.7 g/dL (1.3-4.6); Glucose 187 mg/dL (65-115); Osmolality Calculated 298 mOsm/kg (285-295); Potassium 5.3 mmol/L (3.5-5.1); Sodium 140 mmol/L (136-145); Total Protein 5.7 g/dL (6.6-8.7)
[2025-03-03] MEDS: lactulose oral liq 20 gm/30 mL UDC OG-TUBE ×2 (04:37→14:08)
[2025-03-03] MEDS: cefTRIAXone 1,000 mg SDV 1000 MG IVP (06:46)
--- NOTE | 2025-03-03 13:11 | PC.SOCIAL ---
IMM Update pg 2 of IMM Updated and reviewed w/ patient. Copy provided and copy dated, initialed and placed in chart.
[2025-03-03] MEDS: pantoprazole 40 mg SDV IVP ×2 (14:09→23:03)
--- NOTE | 2025-03-03 14:49 | P.PN_ITS ---
Subjective 2 Subjective: He is still lethargic this morning but waking up and following directions to squeeze his hands and nod his head. Overbreathing the vent. Did well with pressure support all with a few apnea episodes. Does have history of sleep apnea per discussion with his Vitals/I&O/Wt Last Vital Signs Temp 98.4 F 03/03/25 07:45 Pulse 83 03/03/25 10:15 Resp 14 03/03/25 13:56 BP 146/83 03/03/25 10:15 Pulse Ox 96 03/03/25 13:56 O2 Del Method Mechanical Ventilation 03/03/25 10:15 FiO2 30 03/03/25 13:56 03/02/25 03/03/25 03/03/25 22:59 06:59 14:59 Intake Total 7.135 / 397.449 Output Total 275 / 700 250 / 950 Balance -275 / -309.686 -242.865 / -552.551 Weight last 48 hrs Weight 111.402 kg Weight 110.903 kg Weight 111.13 kg Physical Exam 2 Narrative: Accompanied by his Const: COMMON NORMALS: alert GENERAL APPEARANCE: not cooperative O RIENTATION/CONSCIOUSNESS: Yes patient obtunded; not awake HENMT: COMMON NORMALS: oropharynx normal Neck/C-Spine: COMMON NORMALS: no JVD Resp: COMMON NORMALS: normal respiratory effort and clear to auscultation bilaterally AUSCULTATION: clear to auscultation bilaterally Cardio: COMMON NORMALS: no JVD, regular rhythm, S1 normal heart sound present, S2 normal heart sound present and No murmurs present (Cardio) RHYTHM: regular rhythm HEART SOUNDS: S1 normal heart sound present and S2 normal heart sound present GI: COMMON NORMALS: Normal to inspection, nondistended, normoactive bowel sounds present, Soft to palpation and non-tender PALPATION: Yes Soft to palpation OTHER: Large abdomen. Extremity: COMMON NORMALS: no joint enlargement GENERAL: Yes edema (trace) Neuro: COMMON NORMALS: moves all extremities SENSORIUM/ORIENTATION: Yes alert Skin: COMMON NORMALS: no rashes or lesions noted GENERAL SKIN EXAM: no rashes or lesions noted Urinary Catheter Management: Kraus: Cath Placed During This Visit: yes Reason for Continuing Indwelling Catheter: Accurate Measurement of Urinary Output in Critically Ill Patients Urinary Catheter Date of Insertion: 03/01/25 Urinary Catheter Time of Insertion: 08:10 Data 03/03/25 02:48 03/03/25 02:48 Micro: Microbiology 03/01/25 12:10 Gram Stain - Final Sputum - Endotracheal Tube Aspirate Sputum Culture - Final A&P Assessment and plan 1. Acute hepatic encephalopathy: Improving hepatic encephalopathy, case awaking this morning. Continue to wean off sedation. Reviewed ammonia, normalized. Reviewed vitals, CBC, CMP. Wean off sedation, but did well with breathing trial. Discussed with RT, nursing, business case analyst. Proceed with extubation, extubated to nasal cannula. Monitor in ICU. Bedside swallow trial. If does well can have clear liquids to start. Monitor mental status. Recheck ammonia. Continue lactulose by mouth. 2. Respiratory failure: With improvement in mental status did well with breathing trial. Noted left lower lobe pneumonia, aspiration pneumonia. Continue ceftriaxone and azithromycin. Reviewed CBC, no leukocytosis. Afebrile. Reviewed sputum culture, noted moderate normal lorna. Reviewed MRSA PCR. Negative. On presentation not protecting his airway, noted choking in the emergency department, requiring intubation. Continue mechanical ventilatory support, treat hepatic encephalopathy. Additionally with several episodes of vomiting while AMS concern for aspiration pneumonitis/pneumonia. 3. Vomiting: Result. Without recurrence of vomiting. Reviewed acute abdominal obstructive series, no signs of obstruction. Continue PPI. Zofran as needed. Recurrent vomiting on presentation. NPO. Obtain acute abdominal x-ray. Ultrasound without ascites. Does not take NSAIDs, does not drink alcohol. Has not been able to tolerate lactulose due to vomiting. 4. 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 - Continue routine monitoring of liver function tests and clinical status Plan: Recent fall with skin tear and bruises : Large left arm bruising and skin tear from fall one week ago. Obstructive sleep apnea : Uses CPAP at home; currently intubated in ICU. Chronic thrombocytopenia : Platelets 84 K/?L, stable for patient. - Gastric antral vascular ectasia (GAVE) with bleeding history s/p ablation, GERD: PPI IV BID - Obstructive sleep apnea: on CPAP at home - History of obesity (maximum >300 lb, current ~220 lb): current weight 255lbs - History of acute kidney injury requiring temporary dialysis in 2021 Hospitalization bundle : ICU admission with continuous minimal sedation, mechanical ventilation, and serial labs/vitals. PDMP PDMP Reviewed: Not Reviewed Attestations 2 Medical Necessity Statement*: Continue admission for management of hepatic encephalopathy after respiratory failure, extubation and gentleman with underlying cirrhosis, sleep apnea, additional comorbidities. Coding Level of Care Code Critical Care >/= 30 minutes Critical care time (in minutes): 35 The high probability of a clinically significant, sudden or life threatening deterioration, as referenced in this documentation, required my full and direct attention, intervention and personal management. The critical care time shown is in addition to time spent performing any reported separately billable procedures and includes the following: [x] Data and vital sign review and interpretation [x ] Patient assessment, examination and intervention [x] Medication orders and management [x] Patient/Family updates as able [x] Care Coordination and Documentation. 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
--- NOTE | 2025-03-03 15:18 | PC.NURSE ---
Patient was successfully extubated at 1430 by respiratory therapist.
[2025-03-03] MEDS: insulin glargine 100 units/1 mL 12 UNIT SUBCUT (21:08)
--- NOTE | 2025-03-03 21:20 | PC.NURSE ---
IV fluids stop: IV NS was stopped at 2120.
--- NOTE | 2025-03-03 21:21 | PC.NURSE ---
PO lactulose: Patient unable to take PO at this time, Dr. Will gave telephone orders to hold dose.
[2025-03-04] VITALS (68 sets, daily range): BP systolic 125–165; BP diastolic 67–92; PULSE 60–97; RESP 16–21; TEMP 36.6–37.2; O2SAT 93–100; BMI 31.4
[2025-03-04 04:54] LABS: Hematocrit 42.3 % (37-53); Hemoglobin 13.60 g/dL (11.27-16.99); Mean Corpuscular HGB Conc 32.2 g/dL (30-55); Mean Corpuscular Hemoglobin 28.6 pg (27-33); Mean Corpuscular Volume 88.9 fl (82-101); Nucleated Red Blood Cells % 0 %; Platelet Count 76 10^3/cmm (157-399); Red Blood Count 4.76 10^6/uL (3.85-5.65); White Blood Count 12.47 10^3/uL (3.29-11.43)
[2025-03-04 05:12] LABS: Alanine Aminotransferase 39 U/L (0-41); Albumin Level 2.9 g/dL (3.5-5.2); Alkaline Phosphatase 97 U/L (40-130); Anion Gap 15.4 (5-19); Aspartate Amino Transferase 30 U/L (0-40); Blood Urea Nitrogen 23 mg/dL (8-23); Calcium 8.6 mg/dL (8.5-10.5); Carbon Dioxide 19 mmol/L (22-29); Chloride 110 mmol/L (98-107); Creatinine Clr Calc Pharmacy 92.3982; Globulin 2.7 g/dL (1.3-4.6); Glucose 200 mg/dL (65-115); Osmolality Calculated 297 mOsm/kg (285-295); Potassium 5.4 mmol/L (3.5-5.1); Sodium 139 mmol/L (136-145); Total Protein 5.6 g/dL (6.6-8.7)
[2025-03-04 05:15] LABS: Ammonia 49 umol/L (16-60)
[2025-03-04] MEDS: cefTRIAXone 1,000 mg SDV 1000 MG IVP (06:08)
--- NOTE | 2025-03-04 07:48 | ECG_ITS ---
[facility] Date: 2025-03-04 Pat Name: Luis Muñoz Department: Room: 278 Gender: Male [employer]: : 1955 Requested By: Domenico Tavares Order Number: [id number] Jae MD: Isaias Eduardo M.D. Measurements Intervals [place] Rate: 69 P: 22 NC: 135 QRS: 41 QRSD: 80 T: 58 QT: 377 QTc: 406 Interpretive Statements SINUS RHYTHM Compared to ECG 03/02/2025 11:00:40 No significant changes Electronically Signed On 03-06-2025 09:41:35 CDT by Isaias Eduardo M.D. [email or web address] [id number]
[2025-03-04] MEDS: pantoprazole 40 mg SDV IVP ×2 (12:18→22:24)
[2025-03-04] MEDS: lactulose oral liq 20 gm/30 mL UDC PR (12:18)
--- NOTE | 2025-03-04 12:56 | P.PN_ITS ---
Subjective 2 Subjective: She is feeling much better off of the ventilator. Kraus catheter is bothering him somewhat and he would like it removed. Vitals/I&O/Wt Last Vital Signs Temp 98.4 F 03/04/25 04:30 Pulse 77 03/04/25 11:13 Resp 16 03/04/25 11:13 BP 164/75 03/04/25 10:45 Pulse Ox 99 03/04/25 11:13 O2 Del Method Nasal Cannula 03/04/25 11:13 O2 Flow Rate 2 03/04/25 11:13 FiO2 21 03/03/25 19:58 03/03/25 03/04/25 03/04/25 22:59 06:59 14:59 Intake Total 250 / 250 Output Total 650 / 650 550 / 1200 Balance -650 / -650 -550 / -1200 250 / 250 Weight last 48 hrs Weight 110.949 kg Weight 111.402 kg Weight 110.903 kg Physical Exam 2 Narrative: Accompanied by his and brother in law Const: COMMON NORMALS: alert GENERAL APPEARANCE: not cooperative O RIENTATION/CONSCIOUSNESS: Yes patient obtunded; not awake HENMT: COMMON NORMALS: oropharynx normal Neck/C-Spine: COMMON NORMALS: no JVD Resp: COMMON NORMALS: normal respiratory effort and clear to auscultation bilaterally AUSCULTATION: clear to auscultation bilaterally OTHER: Upper respiratory rhonchi Cardio: COMMON NORMALS: no JVD, regular rhythm, S1 normal heart sound present, S2 normal heart sound present and No murmurs present (Cardio) RHYTHM: regular rhythm HEART SOUNDS: S1 normal heart sound present and S2 normal heart sound present GI: COMMON NORMALS: Normal to inspection, nondistended, normoactive bowel sounds present, Soft to palpation and non-tender PALPATION: Yes Soft to palpation OTHER: Large abdomen. Extremity: COMMON NORMALS: no joint enlargement GENERAL: Yes edema (trace) Neuro: COMMON NORMALS: moves all extremities SENSORIUM/ORIENTATION: Yes alert Skin: COMMON NORMALS: no rashes or lesions noted GENERAL SKIN EXAM: no rashes or lesions noted Urinary Catheter Management: Kraus: Cath Placed During This Visit: yes Reason for Continuing Indwelling Catheter: Accurate Measurement of Urinary Output in Critically Ill Patients Urinary Catheter Date of Insertion: 03/01/25 Urinary Catheter Time of Insertion: 08:10 Data 03/04/25 04:27 03/04/25 04:27 Micro: Microbiology 03/01/25 12:10 Gram Stain - Final Sputum - Endotracheal Tube Aspirate Sputum Culture - Final A&P Assessment and plan 1. Acute hepatic encephalopathy: Improving hepatic encephalopathy. Still with mild confusion per history obtained from his , but so far gradually improving. Gen weakness, required two-person assist to get up from bed. Will check CK. PT assessment is requested. Check TSH With concern for dysphagia with oral swabs, kept n.p.o. for now, ST evaluation is requested. Adjust lactulose to continue NC for now. Goal 2-3 bowel movements a day. Resume Xifaxan once able to resume oral diet. And transfer out of intensive care unit. Discussed with nursing, case management, PT. 2. Respiratory failure: Extubated to 2 L nasal cannula. Has been weaning off oxygen. Saturations doing well. Breathing is comfortable. Some generalized weakness, deconditioning, with dysphagia, further ST assessment as above. N.p.o. for now. Possible ICU myopathy. With improvement in mental status did well with breathing trial. Noted left lower lobe pneumonia, aspiration pneumonia. Continue ceftriaxone and azithromycin. Reviewed CBC, no leukocytosis. Afebrile. Reviewed sputum culture, noted moderate normal loran. Reviewed MRSA PCR. Negative. On presentation not protecting his airway, noted choking in the emergency department, requiring intubation. Continue mechanical ventilatory support, treat hepatic encephalopathy. Additionally with several episodes of vomiting while AMS concern for aspiration pneumonitis/pneumonia. 3. Vomiting: Result. Without recurrence of vomiting. Reviewed acute abdominal obstructive series, no signs of obstruction. Continue PPI. Zofran as needed. Recurrent vomiting on presentation. Ultrasound without ascites. Does not take NSAIDs, does not drink alcohol. Has not been able to tolerate lactulose due to vomiting. 4. 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 - Continue routine monitoring of liver function tests and clinical status Plan: Hyperkalemia: Low potassium diet. Check EKG. Recent fall with skin tear and bruises : Large left leg bruising and skin tear from fall on the right arm one week ago. Wound care for skin tear. Chronic thrombocytopenia : Platelets 76 K/?L, stable for patient. - Gastric antral vascular ectasia (GAVE) with bleeding history s/p ablation, GERD: PPI IV BID. Reviewed hemoglobin, maintaining blood counts. - Obstructive sleep apnea: on CPAP at home which has been resumed - History of obesity (maximum >300 lb, current ~220 lb): current weight 255lbs - History of acute kidney injury requiring temporary dialysis in 2021 PDMP PDMP Reviewed: Not Reviewed Attestations 2 Medical Necessity Statement*: Continue admission for management of hepatic encephalopathy in a gentleman with underlying cirrhosis, aspiration pneumonia, sleep apnea, additional comorbidities. 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
[2025-03-04 15:16] LABS: Thyroid Stimulating Hormone 2.91 uIU/mL (0.27-4.20)
[2025-03-04 16:26] LABS: Potassium 5.1 mmol/L (3.5-5.1)
--- NOTE | 2025-03-04 18:20 | PC.NURSE ---
Report was given to Carmen in [facility]. All belongings were sent with patient. Patient was stable during transfer.
[2025-03-04] MEDS: insulin glargine 100 units/1 mL 12 UNIT SUBCUT (22:25)
[2025-03-05] VITALS (9 sets, daily range): BP systolic 116–145; BP diastolic 63–78; PULSE 59–79; RESP 15–18; TEMP 36.5–37; O2SAT 93–95
[2025-03-05 05:41] LABS: Hematocrit 40.5 % (37-53); Hemoglobin 12.70 g/dL (11.27-16.99); Mean Corpuscular HGB Conc 31.4 g/dL (30-55); Mean Corpuscular Hemoglobin 28.8 pg (27-33); Mean Corpuscular Volume 91.8 fl (82-101); Nucleated Red Blood Cells % 0 %; Platelet Count 55 10^3/cmm (157-399); Red Blood Count 4.41 10^6/uL (3.85-5.65); White Blood Count 5.84 10^3/uL (3.29-11.43)
[2025-03-05 05:59] LABS: Alanine Aminotransferase 32 U/L (0-41); Albumin Level 2.7 g/dL (3.5-5.2); Alkaline Phosphatase 82 U/L (40-130); Anion Gap 13.1 (5-19); Aspartate Amino Transferase 25 U/L (0-40); Blood Urea Nitrogen 23 mg/dL (8-23); Calcium 8.8 mg/dL (8.5-10.5); Carbon Dioxide 23 mmol/L (22-29); Chloride 108 mmol/L (98-107); Creatinine Clr Calc Pharmacy 115.3637; Globulin 2.6 g/dL (1.3-4.6); Glucose 167 mg/dL (65-115); Osmolality Calculated 293 mOsm/kg (285-295); Potassium 6.1 mmol/L (3.5-5.1); Sodium 138 mmol/L (136-145); Total Protein 5.3 g/dL (6.6-8.7)
[2025-03-05] MEDS: cefTRIAXone 1,000 mg SDV 1000 MG IVP (06:14)
--- NOTE | 2025-03-05 06:27 | PC.NURSE ---
Patient refused lactulose this morning.
[2025-03-05 08:25] LABS: LAB Peripheral Smear Sent for Review
[2025-03-05] MEDS: pantoprazole 40 mg SDV IVP (11:18)
--- NOTE | 2025-03-05 13:39 | P.PN_ITS ---
Subjective 2 Subjective: This morning he is getting stronger. He is getting well enough where he was able to get up with a walker and assistance to walk to the bathroom. Vitals/I&O/Wt Last Vital Signs Temp 98.2 F 03/05/25 11:35 Pulse 66 03/05/25 11:35 Resp 16 03/05/25 11:35 BP 145/75 03/05/25 11:35 Pulse Ox 94 03/05/25 11:35 O2 Del Method Room Air 03/05/25 11:35 O2 Flow Rate 2 03/04/25 11:13 FiO2 21 03/03/25 19:58 03/04/25 03/05/25 03/05/25 22:59 06:59 14:59 Intake Total 1500 / 1750 480 / 2230 240 / 240 Output Total 200 / 200 150 / 150 Balance 1500 / 1750 280 / 2030 90 / 90 Weight last 48 hrs Weight 110.677 kg Weight 110.949 kg Physical Exam 2 Const: COMMON NORMALS: alert GENERAL APPEARANCE: cooperative O RIENTATION/CONSCIOUSNESS: Yes awake HENMT: COMMON NORMALS: oropharynx normal Neck/C-Spine: COMMON NORMALS: no JVD Resp: COMMON NORMALS: normal respiratory effort and clear to auscultation bilaterally AUSCULTATION: clear to auscultation bilaterally Cardio: COMMON NORMALS: no JVD, regular rhythm, S1 normal heart sound present, S2 normal heart sound present and No murmurs present (Cardio) RHYTHM: regular rhythm HEART SOUNDS: S1 normal heart sound present and S2 normal heart sound present GI: COMMON NORMALS: Normal to inspection, nondistended, normoactive bowel sounds present, Soft to palpation and non-tender PALPATION: Yes Soft to palpation Extremity: COMMON NORMALS: no joint enlargement GENERAL: Yes edema (trace) Neuro: COMMON NORMALS: moves all extremities SENSORIUM/ORIENTATION: Yes alert Skin: COMMON NORMALS: no rashes or lesions noted GENERAL SKIN EXAM: no rashes or lesions noted Urinary Catheter Management: Kraus: Cath Placed During This Visit: yes Reason for Continuing Indwelling Catheter: Accurate Measurement of Urinary Output in Critically Ill Patients Urinary Catheter Date of Insertion: 03/01/25 Urinary Catheter Time of Insertion: 08:10 Data 03/05/25 05:17 03/05/25 05:17 A&P Assessment and plan 1. Acute hepatic encephalopathy: Appears mostly resolved hepatic encephalopathy. He is awake and alert, conversant. Working with staff. This morning still n.p.o. due to failed swallow assessment yesterday. Lactulose has been requested [place], however, he had declined this this morning. Pending speech therapy assessment to see if can resume medications by mouth. Reviewed vitals, CBC, CMP. On further reassessment this afternoon he is doing better with speech therapy. Trial of oral intake with dysphagia level 6 diet. Transition medications to oral. Improving hepatic encephalopathy. Still with mild confusion per history obtained from his , but so far gradually improving. Gen weakness, required two-person assist to get up from bed. Reviewed CK. PT assessment today. Reviewed TSH. With concern for dysphagia with oral swabs, kept n.p.o. for now, ST evaluation is requested. Adjust lactulose to continue [place] for now. Goal 2-3 bowel movements a day. Resume Xifaxan once able to resume oral diet. Discussed with nursing, case management, PT. 2. Respiratory failure: Resolved respiratory failure. Oxygenation continues to improve. Weaning off oxygen. Saturations doing well. Breathing is comfortable. Some generalized weakness, deconditioning, with dysphagia, further ST assessment as above. N.p.o. for now. Possible ICU myopathy. With improvement in mental status did well with breathing trial. Noted left lower lobe pneumonia, aspiration pneumonia. Continue ceftriaxone and azithromycin. Reviewed CBC, no leukocytosis. Afebrile. Reviewed sputum culture, noted moderate normal lorna. Reviewed blood culture. MRSA PCR negative. On presentation not protecting his airway, noted choking in the emergency department, requiring intubation. Continue mechanical ventilatory support, treat hepatic encephalopathy. Additionally with several episodes of vomiting while AMS concern for aspiration pneumonitis/pneumonia. 3. Vomiting: Resolved. Without recurrence of vomiting. Reviewed acute abdominal obstructive series, no signs of obstruction. Continue PPI. Zofran as needed. Recurrent vomiting on presentation. Ultrasound without ascites. Does not take NSAIDs, does not drink alcohol. Has not been able to tolerate lactulose due to vomiting. 4. 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 - Continue routine monitoring of liver function tests and clinical status Plan: Thrombocytopenia: Worsening thrombocytopenia today, platelet count 55,000. Chronic thrombocytopenia likely related to cirrhosis. Request peripheral smear to further assess worsening. So far maintaining hemoglobin with only mild decrease. Reassess blood counts. Hyperkalemia: Reviewed potassium, with further increase of 6.1. Requested a dose of Kayexalate [place], but he refused. Will request oral dose in case cleared for oral intake by speech therapy today. Doing better this afternoon. Ordered oral dose of Kayexalate for him. Currently without signs of bowel obstruction. Monitor for risk of bowel necrosis. Physical deconditioning: Quite deconditioned after extubation, requiring two- person assist to get up from bed to chair. Failed initial swallow evaluation. Pending ST reassessment. PT evaluation. Arrangements for SNF rehabilitation with case management underway. He is working with staff, was able to get up this morning with assistance with a walker. Recent fall with skin tear and bruises : Large left leg bruising and skin tear from fall on the right arm one week ago. Wound care for skin tear. - Gastric antral vascular ectasia (GAVE) with bleeding history s/p ablation, GERD: PPI IV BID. Reviewed hemoglobin, maintaining blood counts. - Obstructive sleep apnea: on CPAP at home which has been resumed - History of obesity (maximum >300 lb, current ~220 lb): current weight 255lbs - History of acute kidney injury requiring temporary dialysis in 2021 PDMP PDMP Reviewed: Not Reviewed Attestations 2 Medical Necessity Statement*: Continue admission for management of generalized weakness, deconditioning, dysphagia and failed swallow evaluation, pending resumption of oral intake, resolving hepatic encephalopathy in a gentleman with underlying cirrhosis, with aspiration pneumonia. Postdischarge planning and arrangements. 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
[2025-03-05] MEDS: lactulose oral liq 20 gm/30 mL UDC 30 GM PO ×2 (15:24→21:59)
[2025-03-05] MEDS: insulin glargine 100 units/1 mL 12 UNIT SUBCUT (21:59)
[2025-03-06 05:00] VITALS: BP 145/77; PULSE 63; RESP 18; TEMP 37.1; O2SAT 95
[2025-03-06 05:23] LABS: Hematocrit 40.5 % (37-53); Hemoglobin 13.00 g/dL (11.27-16.99); Mean Corpuscular HGB Conc 32.1 g/dL (30-55); Mean Corpuscular Hemoglobin 28.7 pg (27-33); Mean Corpuscular Volume 89.4 fl (82-101); Nucleated Red Blood Cells % 0 %; Platelet Count 76 10^3/cmm (157-399); Red Blood Count 4.53 10^6/uL (3.85-5.65); White Blood Count 5.29 10^3/uL (3.29-11.43)
[2025-03-06 05:49] LABS: Alanine Aminotransferase 40 U/L (0-41); Albumin Level 2.9 g/dL (3.5-5.2); Alkaline Phosphatase 87 U/L (40-130); Anion Gap 14.1 (5-19); Aspartate Amino Transferase 37 U/L (0-40); Blood Urea Nitrogen 21 mg/dL (8-23); Calcium 8.7 mg/dL (8.5-10.5); Carbon Dioxide 22 mmol/L (22-29); Chloride 108 mmol/L (98-107); Creatinine Clr Calc Pharmacy 102.5455; Globulin 2.6 g/dL (1.3-4.6); Glucose 191 mg/dL (65-115); Osmolality Calculated 296 mOsm/kg (285-295); Potassium 5.1 mmol/L (3.5-5.1); Sodium 139 mmol/L (136-145); Total Protein 5.5 g/dL (6.6-8.7)
[2025-03-06 06:18] LABS: Slide Review Slide Review Perform
[2025-03-06] MEDS: cefTRIAXone 1,000 mg SDV 1000 MG IVP (06:23)
[2025-03-06 07:44] VITALS: BP 142/69; PULSE 62; RESP 17; TEMP 36.7; O2SAT 94
[2025-03-06 11:43] VITALS: BP 138/80; PULSE 70; RESP 17; TEMP 36.8; O2SAT 96
[2025-03-06 12:02] VITALS: BP 138/80; PULSE 70; RESP 17; TEMP 36.8; O2SAT 96
--- NOTE | 2025-03-06 12:03 | PC.NURSE ---
Discharge Note Patient discharged to home via private vehicle accompanied by . Discharge instructions reviewed with patient and/or artist's representative. Mobile pharmacy medications and/or prescriptions provided. Belongings/home medications returned.
--- NOTE | 2025-03-06 14:33 | P.DS_ITS ---
Discharge Providers Date of Admission: 03/01/25 10:49 Date of Discharge: March 06, 2025 Attending Provider at Admission: Domenico Tavares Attending Provider at Discharge: Brandy Perry MD Primary Care Provider: Floresita Bustillo DO Diagnoses at Discharge Discharge Diagnosis 1. Acute hepatic encephalopathy: 2. Respiratory failure: 3. Vomitin. 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 With improving encephalopathy, weaning of sedation, extubated, encephalopathy resolving, ammo geremias normalized, quite deconditioned, initially requiring 2 person assist to go from bed to chair, failed bedside swallow eval, but gradually improving.?Today he was able to ambulate in the hallway with walker. He was initially planned to transition to SNF however with improvement today, him and his elected to return home instead. HE was able to start on trial of oral intake after did better with speech therapy, resuming p.o. medications.? Hospital course was notable for hyperkalemia, which resolved with Kayexalate. Spironolactone has been held at discharge. He is recommended to follow-up with his primary care provider and repeat of potassium early next week to see if spironolactone may be able to be resumed at a later date. He has completed a 5- day course of IV antibiotics for aspiration pneumonia. Doing well from a respiratory standpoint today. He is being discharged today in stable condition Physical Exam Narrative: General: No acute distress, AO x3 HEENT: PERRLA, pupils bilaterally equal and reactive, pallors not present Chest: Normal vesicular breath sounds, no added sounds, equal good air entry bilaterally CVS: S1-S2 regular, no murmurs, no tachycardia, no gallops, no rubs Abdomen: Soft, nontender, no organomegaly, bowel sounds present Neuro: No focal deficits, no facial deformity, AO x3, power 5/5 in all limbs Urinary Catheter Management: Kraus: Cath Placed During This Visit: yes Reason for Continuing Indwelling Catheter: Accurate Measurement of Urinary Output in Critically Ill Patients Urinary Catheter Date of Insertion: 03/01/25 Urinary Catheter Time of Insertion: 08:10 Discharge Data Studies Completed and Pending Completed Studies During Hospitalization Category Date Time Status XR acute abdomen series 91316 Routine Exams 03/01/25 11:27 Completed XR chest 1V portable [id number] Stat Exams 03/01/25 06:31 Completed XR chest 1V portable [id number] Stat Exams 03/01/25 10:44 Completed US abdomen lmt fluid [id number] Stat Ultrasound 03/01/25 09:30 Completed Pending at discharge Category Date Time Status Complete Blood Count w/Auto AM LABS Lab 03/07/25 04:00 Ordered Comprehensive Metabolic Panel AM LABS Lab 03/07/25 04:00 Ordered Radiology Impressions Abdomen Ultrasound 03/01/25 09:30 IMPRESSION: No fluid visualized. Chest X-Ray 03/01/25 10:44 Impression: Satisfactory placement of endotracheal tube and nasogastric tube. Chest/Abdomen X-ray 03/01/25 11:27 Impression: 1. Minimal patchy opacity at left costophrenic angle. 2. Moderate amount of fecal material in the colon. Laboratory Results WBC 5.29 10^3/uL (3.29-11.43) 03/06/25 04:55 RBC 4.53 10^6/uL (3.85-5.65) 03/06/25 04:55 Hgb 13.00 g/dL (11.27-16.99) 03/06/25 04:55 Hct 40.5 % (37-53) 03/06/25 04:55 MCV 89.4 fl (82-101) 03/06/25 04:55 MCH 28.7 pg (27-33) 03/06/25 04:55 MCHC 32.1 g/dL (30-55) 03/06/25 04:55 RDW 22.5 % (12.1-15.1) H 03/06/25 04:55 Plt Count 76 10^3/cmm (157-399) L D 03/06/25 04:55 MPV 10.8 fL (7.4-10.4) H 03/06/25 04:55 Neut % (Auto) 80.3 % 03/06/25 04:55 Lymph % (Auto) 7.4 % 03/06/25 04:55 [place] % (Auto) 8.9 % 03/06/25 04:55 Eos % (Auto) 2.6 % 03/06/25 04:55 Baso % (Auto) 0.4 % 03/06/25 04:55 Neut # (Auto) 4.25 10^3/uL (1.8-7.7) 03/06/25 04:55 Lymph # (Auto) 0.4 10^3/uL (0.8-4.8) L 03/06/25 04:55 [place] # (Auto) 0.5 10^3/uL (0.2-0.9) 03/06/25 04:55 Eos # (Auto) 0.1 10^3/uL (0.0-0.8) 03/06/25 04:55 Baso # (Auto) 0.0 10^3/uL (0.0-0.1) 03/06/25 04:55 Nucleated RBC % (auto) 0 % 03/06/25 04:55 Nucleated RBCs # 0.0 /100WBC 03/06/25 04:55 Peripher Smr Path Cons Sent for review 03/05/25 05:17 PT 15.60 SECONDS (12.1-14.9) H 03/01/25 06:40 INR 1.16 (0.8-1.2) 03/01/25 06:40 Specimen Type Arterial 03/02/25 03:07 Sample Site Brachial, left 03/02/25 03:07 ABG pH 7.39 (7.35-7.45) 03/02/25 03:07 ABG pCO2 35.1 mmHg (35-45) 03/02/25 03:07 ABG pO2 92.7 mmHg (80.0-100.0) 03/02/25 03:07 ABG PO2/FiO2 Ratio 264 03/02/25 03:07 ABG HCO3 21.3 mmol/L (22-26) L 03/02/25 03:07 ABG O2 Saturation 94.7 03/01/25 06:56 ABG Base Excess -3.0 mmol/L (-2.0-2.0) L 03/02/25 03:07 [place] Test N/a 03/02/25 03:07 A-a O2 Gradient 5.3 mmHg (5-10) 03/01/25 06:56 Hematocrit 41.4 % (42-52) L 03/02/25 03:07 Hgb O2 Saturation 94.6 % (95-100) L 03/01/25 06:56 Carboxyhemoglobin 0.9 %THgb (0.4-20.1) 03/01/25 06:56 Methemoglobin < 0.0 % (0.4-1.5) L 03/01/25 06:56 Total Hemoglobin 13.7 g/dL (14-18) L 03/01/25 06:56 Sodium 142.0 mmol/L (131-143) 03/01/25 06:56 Potassium 4.9 mmol/L (3.5-5.0) 03/01/25 06:56 Glucose 175.0 mg/dL (70-115) H 03/01/25 06:56 Ionized Calcium 1.2 mmol/L (1.1-1.4) 03/01/25 06:56 O2 Delivery Device Vent 03/02/25 03:07 O2 Liters/Min 14.0 % 03/01/25 11:30 FiO2 35.0 % 03/02/25 03:07 Tidal Volume 0.55 03/02/25 03:07 PEEP 5.0 cmH20 03/02/25 03:07 Antique Refinisher ID [email or web address] 03/02/25 03:07 Sodium 139 mmol/L (136-145) 03/06/25 04:55 Potassium 5.1 mmol/L (3.5-5.1) 03/06/25 04:55 Chloride 108 mmol/L (98-107) H 03/06/25 04:55 Carbon Dioxide 22 mmol/L (22-29) 03/06/25 04:55 Anion Gap 14.1 (5-19) 03/06/25 04:55 BUN 21 mg/dL (8-23) 03/06/25 04:55 Creatinine 0.9 mg/dL (0.7-1.2) 03/06/25 04:55 GFR Calculation 83.7 mL/min (90-130) L 03/06/25 04:55 Glucose 191 mg/dL (65-115) H 03/06/25 04:55 POC Glucose 155 mg/dL (70-110) H 03/06/25 10:34 Calculated Osmolality 296 mOsm/kg (285-295) H 03/06/25 04:55 Lactic Acid 2.4 mmol/L (0.5-2.2) H 03/01/25 06:40 Lactic Acid (Sepsis) 2.5 mmol/L (0.5-2.2) H 03/01/25 09:40 Calcium 8.7 mg/dL (8.5-10.5) 03/06/25 04:55 Magnesium 2.0 mg/dL (1.7-2.3) 03/02/25 03:17 Total Bilirubin 1.4 mg/dL (0.15-1.2) H 03/06/25 04:55 AST 37 U/L (0-40) 03/06/25 04:55 ALT 40 U/L (0-41) 03/06/25 04:55 Alkaline Phosphatase 87 U/L (40-130) 03/06/25 04:55 Ammonia 49 umol/L (16-60) 03/04/25 04:27 Creatine Kinase 19 U/L (39-308) L 03/04/25 04:27 Total Protein 5.5 g/dL (6.6-8.7) L 03/06/25 04:55 Albumin 2.9 g/dL (3.5-5.2) L 03/06/25 04:55 Globulin 2.6 g/dL (1.3-4.6) 03/06/25 04:55 TSH 2.91 uIU/mL (0.27-4.20) 03/04/25 04:27 Urine Color Yellow (Yellow) 03/01/25 07:55 Urine Appearance Clear (CLEAR) 03/01/25 07:55 Urine pH 8.5 (5-7) A 03/01/25 07:55 Ur Specific [place] 1.022 (1.005-1.030) 03/01/25 07:55 Urine Protein 1+ (Negative) A 03/01/25 07:55 Urine Glucose (UA) Negative (Normal) 03/01/25 07:55 Urine Ketones Negative (Negative) 03/01/25 07:55 Urine Blood Negative (Negative) 03/01/25 07:55 Urine Nitrate Negative (Negative) 03/01/25 07:55 Urine Bilirubin Negative (Negative) 03/01/25 07:55 Urine Urobilinogen 1.0 mg/dL (Negative) 03/01/25 07:55 Ur Leukocyte Esterase Trace (Negative) A 03/01/25 07:55 Urine RBC None /hpf (0-2) 03/01/25 07:55 Urine WBC 0-4 /hpf (0-5) H 03/01/25 07:55 Ur Squamous Epith Cells None /hpf (0-5) 03/01/25 07:55 Amorphous Sediment Not Reportable 03/01/25 07:55 Urine Bacteria 1+ /hpf (NONE) H 03/01/25 07:55 Nasal MRSA (PCR) Not detected (Negative) 03/02/25 11:07 Serum Ketones Negative (Negative) 03/01/25 06:40 Vitals Last Vital Signs Temp 98.3 F 03/06/25 12:02 Pulse 70 03/06/25 12:02 Resp 17 03/06/25 12:02 BP 138/80 03/06/25 12:02 Pulse Ox 96 03/06/25 12:02 O2 Del Method Room Air 03/06/25 11:43 O2 Flow Rate 2 03/04/25 11:13 FiO2 21 03/03/25 19:58 Discharge Plan Discharge Patient Disposition: Home Condition: Stable Prescriptions: Continued betamethasone dipropionate 0.05 % ointment See Rx Instructions .ROUTE .COMPLEX Rx Instructions: Apply to rash twice daily on hands, legs and back. Mix with Aquaphor as directed. Xifaxan 550 mg tablet 550 mg PO BID Qty: 90 3RF sucralfate 1 gram tablet 1 g PO TID midodrine 5 mg tablet 5 mg PO TID ondansetron 8 mg tablet,disintegrating 8 mg PO PRN PRN (Reason: nauesa) levothyroxine 25 mcg tablet 25 mcg PO QAM insulin aspart U-100 [Novolog FlexPen U-100 Insulin] 100 unit/mL (3 mL) insulin pen 5 - 20 unit SUBCUT QID Rx Instructions: per sliding scale insulin glargine [Basaglar KwikPen U-100 Insulin] 100 unit/mL (3 mL) insulin pen 25 unit SUBCUT QPM furosemide 40 mg tablet 40 mg PO DAILY lactulose [Enulose] 10 gram/15 mL solution See Rx Instructions .ROUTE .COMPLEX Rx Instructions: TAKE 3 TABLESPOONFULS (=45ML) 6 TIMES DAILY oxycodone 10 mg tablet 10 mg PO TID MDD 20mg PRN (Reason: Moderate Pain (Scale Score 5-6)) pantoprazole 40 mg tablet,delayed release (DR/EC) 40 mg PO BID Held spironolactone 50 mg tablet 50 mg PO DAILY Hold Instructions: Resume on 03/12/25. Discharge Order = DC NOW: Discharge Order (Routine); Ordered 03/06/25 Ordered By: Brandy Perry Referrals: Floresita Bustillo DO [Primary Care Provider, [facility]] Referral Note: We have notified your physician's clinic of the need for a follow-up appointment to be scheduled. If you have not heard from them within the next 2 business days, please call them directly. Patient Instructions: Hepatic Encephalopathy (DC), Non-Alcoholic Fatty Liver Disease (DC), Altered Mental Status (ED), Opioid Safety, Patient Portal & Jaleel Instructions Discharge Attestations Time Spent in Discharge Care*: greater than 30 min Status at Discharge: Cognitive status at discharge: cognitively intact , Behavioral status at discharge: cooperative and independent in ADL's , Quality Metrics Clinical Quality Measures [ No reported AMI, CVA or VTE this stay] Coding Level of Care Code Acute Code for Chg Fwd Diagnoses Acute hepatic encephalopathy K76.82 Respiratory failure J96.90 Vomiting R11.10 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
== END 2025-03-06 12:02 | disposition home or self-care (01) | DRG 208 ==
LOC: ER 08:47 → ICU 10:50 → MEDSURG 03-04 18:13
PROVIDERS: Family Medicine; Admitting Provider Internal Medicine; Emergency Provider Family Medicine; PCP Family Medicine; Visit Provider Student in an Organized Health Care Education/Training Program
DX: J96.90 Respiratory failure, unspecified, unspecified whether with hypoxia or hypercapnia (principal); J69.0 Pneumonitis due to inhalation of food and vomit; E87.3 Alkalosis; E72.20 Disorder of urea cycle metabolism, unspecified; K76.82 Hepatic encephalopathy; K75.81 Nonalcoholic steatohepatitis (NASH); Z87.891 Personal history of nicotine dependence; R11.10 Vomiting, unspecified; G47.33 Obstructive sleep apnea (adult) (pediatric); D69.6 Thrombocytopenia, unspecified; N18.2 Chronic kidney disease, stage 2 (mild); E13.22 Other specified diabetes mellitus with diabetic chronic kidney disease; Z79.4 Long term (current) use of insulin; K21.9 Gastro-esophageal reflux disease without esophagitis; E03.9 Hypothyroidism, unspecified; E87.5 Hyperkalemia
CPT/HCPCS: 36415; 36416; 36600; 51702; 71045; 74022; 76705; 80048; 80051; 80053; 80503; 81001; 82009; 82140; 82330; 82550; 82803; 82805; 82962; 83605; 83735; 84132; 84443; 85025; 85610; 87040; 87070; 87205; 92523; 92526; 92610; 93005; 94002; 94003; 94664; 94799; 96365; 96367; 96372; 96375; 97161; 97165; 99291; J0456; J0612; J0696; J1815; J2250; J2405; J2470; J3010; J7030; J7050; J7799; J9999